=== PATIENT | female | born 1955 ===

== ENCOUNTER 2020-12-02 08:25 | Outpatient (REF) | payer OTHER, SELFPAY | END 2020-12-02 08:26 | disposition home or self-care (01) | LOC: HO.LAB 08:25 | PROVIDERS: Visit Provider Internal Medicine | DX: Z20.822 Contact with and (suspected) exposure to COVID-19 (principal) | CPT/HCPCS: 36415; C9803; U0003; U0005 ==

== ENCOUNTER 2021-02-10 09:37 | Outpatient (REF) | payer OTHER, SELFPAY ==
[2021-02-10 11:04] LABS: Hematocrit 41.3 % (37-47); Hemoglobin 13.6 g/dl (12.0-16.0); Mean Corpuscular HGB Conc 32.9 g/dl (31.0-35.0); Platelet Count 264 X10*3/uL (160-400); Red Blood Count 4.54 X10*6/uL (4.20-5.50); Red Cell Distribution Width 13.1 % (11.0-16.0); White Blood Count 8.2 X10*3/uL (4.8-10.8)
[2021-02-10 11:05] LABS: Alanine Aminotransferase 9 U/L (0-31); Albumin Level 4.1 g/dL (3.5-5.0); Alkaline Phosphatase 69 U/L (39-117); Anion Gap 12 (12-20); Aspartate Amino Transferase 15 U/L (5-31); Bilirubin Total 0.6 mg/dL (0.0-1.0); Blood Urea Nitrogen 14 mg/dL (9-16); Calcium 9.9 mg/dL (8.4-10.2); Carbon Dioxide 30 mmol/L (22-29); Chloride 103 mmol/L (96-108); Cholesterol 227 mg/dL; Estimated Glomerular Filt Rate > 60; Glucose Fasting 117 mg/dL (60-99); HDL Cholesterol 50 mg/dL; LDL Cholesterol Calculated 160 mg/dl; Potassium 4.2 mmol/L (3.3-5.1); Sodium 141 mmol/L (135-145); Total Protein 7.5 g/dL (6.5-8.0); Triglycerides 87 mg/dL
[2021-02-10 11:17] LABS: Creatinine Urine 160.14 mg/dL; Microalbum/Creatinine Ratio Ur 113.6 ug/mg cr
[2021-02-10 11:26] LABS: TSH reflex Free T4 1.93 uIU/mL (0.32-4.0)
== END 2021-02-10 09:38 | disposition home or self-care (01) ==
LOC: HO.LAB 09:37
PROVIDERS: Visit Provider Physician Assistant
DX: E11.9 Type 2 diabetes mellitus without complications (principal); I10 Essential (primary) hypertension
CPT/HCPCS: 36415; 80053; 80061; 82043; 84443; 85027

== ENCOUNTER 2021-04-14 08:01 | Outpatient (REF) | payer MEDICARE, MEDICAID, SELFPAY ==
--- NOTE | ~2021-04-14 | US_ITS ---
EXAMINATION: US RETROPERITONEAL LIMITED (RENAL ONLY) CLINICAL INFORMATION: Hypertension. Rule out renal artery stenosis. COMPARISON: Abdominal ultrasound October 2017 TECHNIQUE: Doppler, color and an-scale evaluation of the kidneys and renal arteries including waveform spectral analysis. FINDINGS: RIGHT KIDNEY: 11.8 x 3.7 x 6.1 cm (SAG x AP x TRV). The kidney is normal in size, contour, and echogenicity. Renal cortical thickness is normal. There is a small 5 mm cyst exophytic to the lower pole. There are 2 echogenic densities measuring 5 mm in the mid and lower pole suggestive of small stones. No hydronephrosis. LEFT KIDNEY: There is a 4 mm echogenic density in the lower pole suggestive of a stone. The kidney is normal in size, contour, and echogenicity. Renal cortical thickness is normal. No focal parenchymal lesions. No hydronephrosis. The mid abdominal aorta is normal in caliber and has normal peak systolic velocity measuring 70 cm/s. The right renal artery is patent. Right renal artery peak systolic velocities measure 85 cm/s proximally, 111 cm/s in the midportion and 97 cm/s distally. Right renal artery to aorta ratio measures 1.6. Resistive indices at the segmental renal arteries in the right kidney are normal measuring 0.6-0.7. The right renal vein is patent. The left renal artery is patent. Left renal artery peak systolic velocities measure 115 cm/s proximally, 81 cm/s in the midportion and 63 cm/s distally. Left renal artery to aorta ratio is 1.6. Resistive indices of the segmental renal arteries and left kidney measure between 0.6 and 0.7. The left renal vein is patent. US/US renal doppler IMPRESSION: No evidence of renal artery stenosis. Small right renal cyst and small bilateral renal stones.
--- NOTE | ~2021-04-14 | US_ITS ---
EXAMINATION: US RETROPERITONEAL LIMITED (RENAL ONLY) CLINICAL INFORMATION: Hypertension. Rule out renal artery stenosis. COMPARISON: Abdominal ultrasound October 2017 TECHNIQUE: Doppler, color and an-scale evaluation of the kidneys and renal arteries including waveform spectral analysis. FINDINGS: RIGHT KIDNEY: 11.8 x 3.7 x 6.1 cm (SAG x AP x TRV). The kidney is normal in size, contour, and echogenicity. Renal cortical thickness is normal. There is a small 5 mm cyst exophytic to the lower pole. There are 2 echogenic densities measuring 5 mm in the mid and lower pole suggestive of small stones. No hydronephrosis. LEFT KIDNEY: There is a 4 mm echogenic density in the lower pole suggestive of a stone. The kidney is normal in size, contour, and echogenicity. Renal cortical thickness is normal. No focal parenchymal lesions. No hydronephrosis. The mid abdominal aorta is normal in caliber and has normal peak systolic velocity measuring 70 cm/s. The right renal artery is patent. Right renal artery peak systolic velocities measure 85 cm/s proximally, 111 cm/s in the midportion and 97 cm/s distally. Right renal artery to aorta ratio measures 1.6. Resistive indices at the segmental renal arteries in the right kidney are normal measuring 0.6-0.7. The right renal vein is patent. The left renal artery is patent. Left renal artery peak systolic velocities measure 115 cm/s proximally, 81 cm/s in the midportion and 63 cm/s distally. Left renal artery to aorta ratio is 1.6. Resistive indices of the segmental renal arteries and left kidney measure between 0.6 and 0.7. The left renal vein is patent. US/US renal BI IMPRESSION: No evidence of renal artery stenosis. Small right renal cyst and small bilateral renal stones.
== END 2021-04-14 08:02 | disposition home or self-care (01) ==
LOC: HO.HMGCX 08:01
PROVIDERS: PCP Physician Assistant; Visit Provider Physician Assistant
DX: I10 Essential (primary) hypertension (principal)
CPT/HCPCS: 76775; 93975

== ENCOUNTER 2021-05-25 10:13 | Outpatient (REF) | payer MEDICARE, MEDICAID, SELFPAY ==
--- NOTE | ~2021-05-25 | US_ITS ---
EXAMINATION: US ABDOMEN LIMITED CLINICAL INFORMATION: Intra-abdominal and pelvic swelling, mass and lump. COMPARISON: Bilateral renal ultrasound dated 04/14/2021. TECHNIQUE: Real-time imaging of the midline supraumbilical area of concern. FINDINGS: Possible mild diastasis of the rectus abdominis muscles without significant herniation. No abnormal soft tissue mass or fluid collection. US/US abdomen limited IMPRESSION: Possible mild diastasis of the rectus abdominis muscles without significant herniation.
== END 2021-05-25 10:14 | disposition home or self-care (01) ==
LOC: HO.US 10:13
PROVIDERS: Visit Provider Internal Medicine
DX: R19.00 Intra-abdominal and pelvic swelling, mass and lump, unspecified site (principal)
CPT/HCPCS: 76705

== ENCOUNTER → 2021-06-07 14:03 | Outpatient (BNVA) | payer MEDICARE, MEDICAID, SELFPAY | PROVIDERS: PCP Internal Medicine | DX: N20.0 Calculus of kidney (principal); Z87.891 Personal history of nicotine dependence | CPT/HCPCS: 99202 ==

== ENCOUNTER 2021-07-08 08:52 | Outpatient (REF) | payer MEDICARE, MEDICAID, SELFPAY ==
[2021-07-08 15:46] LABS: CT PCR NOT DETECTED (Not Detect.); NG PCR NOT DETECTED (Not Detect.)
[2021-07-09 08:18] LABS: HBc Num1 0.08 S/CO (0.00-0.79); HIV AB/AG Nonreactive (Nonreactive); HIV Num 1 0.06 S/CO (0.00-0.99); Hepatitis B Core Antibody Nonreactive (Nonreactive); Syphilis Screen Nonreactive (Nonreactive); ~HepC Num1 0.07 S/CO (0.00-0.79); ~Hepatitis C Antibody Nonreactive (Nonreactive)
[2021-07-09 09:29] LABS: BV Int Neg Control Negative (Negative); BV Int Pos Control Positive (Positive)
== END 2021-07-08 08:53 | disposition home or self-care (01) ==
LOC: HO.LAB 08:52
PROVIDERS: PCP Internal Medicine; Visit Provider Advanced Practice Midwife
DX: Z01.419 Encounter for gynecological examination (general) (routine) without abnormal findings (principal); Z11.3 Encounter for screening for infections with a predominantly sexual mode of transmission; Z20.2 Contact with and (suspected) exposure to infections with a predominantly sexual mode of transmission
CPT/HCPCS: 36415; 86704; 86780; 86803; 87389; 87480; 87491; 87510; 87591; 87660

== ENCOUNTER 2021-08-02 15:33 | Outpatient (REF) | payer MEDICARE, MEDICAID, SELFPAY ==
--- NOTE | ~2021-08-02 | US_ITS ---
EXAMINATION: US RETROPERITONEAL LIMITED (RENAL ONLY) CLINICAL INFORMATION: Calculus of kidney. COMPARISON: Ultrasound abdomen limited 05/25/2021. Renal ultrasound 04/14/2021. TECHNIQUE: Real-time imaging of the kidneys. FINDINGS: RIGHT KIDNEY: 11.8 x 4.4 x 6.2 cm (SAG x AP x TRV). The kidney is normal in size, contour, and echogenicity. Renal cortical thickness is normal. There are multiple renal stones. The largest measure 1 x 0.3 x 0.8 cm in the midpole and 0.6 x 0.4 x 0.6 cm in the lower pole. There is a 0.8 x 0.6 x 0.7 cm cyst in the lower pole. No hydronephrosis. LEFT KIDNEY: 10.9 x 4.8 x 5.4 cm (SAG x AP x TRV). The kidney is normal in size, contour, and echogenicity. Renal cortical thickness is normal. There are multiple small echogenic densities in the left kidney probably representing vascular reflectors as opposed to stones. There is a 1.6 x 1 x 1.5 cm peripelvic cyst in the upper pole. No hydronephrosis. US/US renal BI IMPRESSION: Right renal stones. Multiple small linear echogenic densities in the left kidney probably representing vascular reflectors as opposed to stones. Small bilateral renal cysts.
== END 2021-08-02 15:34 | disposition home or self-care (01) ==
LOC: HO.US 15:33
PROVIDERS: PCP Internal Medicine; Visit Provider Urology
DX: N20.0 Calculus of kidney (principal)
CPT/HCPCS: 76775

== ENCOUNTER 2021-08-09 15:02 | Outpatient (RCR) | payer MEDICAID, SELFPAY | END 2021-12-06 11:10 | disposition home or self-care (01) | LOC: HO.PT 15:02 | PROVIDERS: PCP Internal Medicine; Visit Provider Internal Medicine | DX: M62.08 Separation of muscle (nontraumatic), other site (principal) ==

== ENCOUNTER 2021-08-30 14:02 | Outpatient (REF) | payer MEDICARE, MEDICAID, SELFPAY ==
--- NOTE | ~2021-08-30 | MM_ITS ---
EXAMINATION: MM SCREENING DIGITAL BREAST TOMOSYNTHESIS, BILATERAL CLINICAL INFORMATION: Screening. Asymptomatic. The lifetime risk of breast cancer based on the Tyrer-Cuzick Model is 8%. COMPARISON: Mammography: 10/12/2016, 11/23/2007 TECHNIQUE: Digital breast tomosynthesis is performed in both the craniocaudal and mediolateral oblique views along with computer-aided detection (CAD). Synthesized 2D images are generated from the tomosynthesis. FINDINGS: The breasts are almost entirely fatty (ACR BI-RADS breast composition Category a). There are no significant masses, abnormal calcifications, or other abnormalities. There is a stable circumscribed nodule posterior 9:00 right breast similar to prior studies. The axilla and skin contours are unremarkable. There is asymmetry of the breast size, left larger, similar to prior studies. No significant changes. MM/MM tomosynthesis screening BI IMPRESSION: No mammographic evidence of malignancy. ASSESSMENT: BI-RADS 2: Benign RECOMMENDATION: Routine annual mammography screening. This patient's information was entered into a reminder system with a target due date for their next mammogram.
== END 2021-08-30 14:03 | disposition home or self-care (01) ==
LOC: HO.MAMMO 14:02
PROVIDERS: Visit Provider Internal Medicine
DX: Z12.31 Encounter for screening mammogram for malignant neoplasm of breast (principal)
CPT/HCPCS: 77063; 77067

== ENCOUNTER 2022-01-05 07:00 | Outpatient (RCR) | payer MEDICARE, MEDICAID, SELFPAY ==
--- NOTE | 2021-08-31 15:26 | MHC.PT.EP ---
[facility] [place] Office [place] Office [place] Office [address] Anjana Adrian [address] [phone] F: [phone] F: [phone] F: [phone] F: [phone] Physical Therapy Plan of Care Date of Evaluation: Date of Surgery: Diagnosis: separation of muscle diastasis recti Assessment: The patient arrived reporting abdominal pain with change in position. I measured a very large abdominal bulge that occurs with contraction of rectus abdominis. The ulstrasound reports mild diastasis recti The patient currently has poor body mechanics, posture, and poor core strength. We will work on techniques to reduce abdominal pressure, and to improve breathing, as well as improve core strength. She also reports urinary incontinence in her history with change in position. I did not assess her PFM strength today due to pt was 25 min late to appointment. I will assess her PFM in subsequent visits. She is a good candidate for skilled pelvic floor therapy. Frequency and Duration: The patient will be seen 1x/week x 8 weeks. Short Term Goals: Pt to be able to demonstrate correct bed mobility technique via log rolling to avoid pressure on the abdomen Pt to be able to demonstrate proper diaphragmatic breathing to relieve pressure on the abdomen Pt to demonstrate initial HEP to improve compliance and carryover. Gold Reclaimer Goals: Pt to be able to show NMR control of her pelvic floor and abdominal muscles to work on HEP independently pt to be able to reduce abdominal bulge by 25% to show progression towards goals. Pt to be able to demonstrate good breathing techniques, body mechanics Treatment Plan: Modalities to reduce pain, spasms and effusion. Manual therapy to restore motion and function. Therapeutic exercise to improve strength and flexibility. Neuromuscular re-education for posture and balance. Therapeutic activities to return to functional activities of daily living. Electronically signed by: Please sign and return to therapist. Thank you for your referral.
--- NOTE | 2022-01-05 08:06 | MHC.PT.DC ---
[facility] [place] Office [place] Office [place] Office [address] Anjana Adrian [address] [phone] F: [phone] F: [phone] F: [phone] F: [phone] Physical Therapy Discharge Report Diagnosis: separation of muscle diastasis recti Date of Surgery: Date of Evaluation: 08/31/21 Date of Discharge: 01/05/22 Treatments to Date: 14 Cancellations to Date: No Shows to Date: Discharge Status: Achieved Goals Independent with HEP Discharge Summary: Assessment of diastasis recti done today. Total length 16 cm. 10 above umbilicus, and 3 below. Across is 10 cm. Pt educated to continue her HEP. She is fully independent with her HEP. She is discharged today with her HEP. Electronically signed by: Fanta Forbes PT DPT Please sign and return to therapist. Thank you for your referral.
== END 2022-01-05 08:07 | disposition home or self-care (01) ==
LOC: HO.PT 07:00
PROVIDERS: Visit Provider Internal Medicine
DX: M62.08 Separation of muscle (nontraumatic), other site (principal)
CPT/HCPCS: 97110; 97112; 97140; 97162; 97530

== ENCOUNTER 2022-07-13 14:50 | Outpatient (REF) | payer MEDICAID, SELFPAY ==
[2022-07-19 20:42] LABS: HPV mRNA E6/E7 rflx Not Detected (Not Detected)
== END 2022-07-13 14:51 | disposition home or self-care (01) ==
LOC: HO.LNP 14:50
PROVIDERS: Visit Provider Advanced Practice Midwife
DX: Z01.419 Encounter for gynecological examination (general) (routine) without abnormal findings (principal); Z11.51 Encounter for screening for human papillomavirus (HPV)
CPT/HCPCS: 87624; 88142

== ENCOUNTER 2022-08-31 13:49 | Outpatient (REF) | payer MEDICAID, SELFPAY ==
--- NOTE | ~2022-08-31 | MM_ITS ---
EXAMINATION: MM SCREENING DIGITAL BREAST TOMOSYNTHESIS, BILATERAL CLINICAL INFORMATION: Screening. Asymptomatic. The lifetime risk of breast cancer based on the Tyrer-Cuzick Model is 6%. COMPARISON: Mammography: 08/30/2021, 10/12/2016 TECHNIQUE: Digital breast tomosynthesis is performed in both the craniocaudal and mediolateral oblique views along with computer-aided detection (CAD). Synthesized 2D images are generated from the tomosynthesis. Additional right MLO view is provided. FINDINGS: The breasts are almost entirely fatty (ACR BI-RADS breast composition Category a). Stable asymmetry of the breasts, left slightly larger. Background stromal markings are unremarkable. There is incidental stable circumscribed nodule posterior upper outer right breast likely intramammary node. There are scattered bilateral round, rim, predominantly dermal calcifications again seen. The axilla are unremarkable. Skin contours are smooth. MM/MM tomosynthesis screening BI IMPRESSION: No mammographic evidence of malignancy. ASSESSMENT: BI-RADS 2: Benign RECOMMENDATION: Routine annual mammography screening. This patient's information was entered into a reminder system with a target due date for their next mammogram.
== END 2022-08-31 13:50 | disposition home or self-care (01) ==
LOC: HO.MAMMO 13:49
PROVIDERS: PCP Internal Medicine; Visit Provider Internal Medicine
DX: Z12.31 Encounter for screening mammogram for malignant neoplasm of breast (principal)
CPT/HCPCS: 77063; 77067

== ENCOUNTER 2024-01-11 09:50 | Emergency (ER) | payer MEDICARE, MEDICAID, SELFPAY ==
[2024-01-11] VITALS (11 sets, daily range): BP systolic 139–199; BP diastolic 81–112; PULSE 88–102; RESP 16–22; TEMP 36.9–38.6; O2SAT 94–97; BMI 44.3
--- NOTE | ~2024-01-11 | CT_ITS ---
EXAMINATION: CT HEAD WITHOUT CONTRAST CLINICAL INFORMATION: Confusion. COMPARISON: None available. TECHNIQUE: Contiguous axial imaging was performed from the skull base to vertex without intravenous administration of contrast. This CT examination was performed using dose optimization techniques as appropriate, variously including the following: *Automated exposure control *Adjustment of mA and/or kV according to patient size (this includes techniques or standardized protocols for targeted exams where dose is matched to indication/reason for exam; i.e. extremities or head) *Use of iterative reconstruction technique DLP: 843 mGy-cm FINDINGS: No evidence of intracranial hemorrhage, extra-axial surface collection, focal mass effect or midline shift. Mild patchy hypoattenuation within the supratentorial white matter is compatible with sequela of chronic microangiopathy. The an-white matter differentiation is maintained. No evidence of an acute major vascular territory infarction. Qpyh-us-ipldswou parenchymal volume loss with commensurate prominence of ventricles and sulci. No hydrocephalus. The cerebellar tonsils are in normal position. The orbits, globes and temporomandibular joints are unremarkable. The mastoid air cells are well aerated. There is mucosal thickening of inferior frontal, bilateral ethmoid, sphenoid and maxillary sinuses without air-fluid levels. There are some relatively dense retention cysts or polyps of the maxillary sinuses. CT/CT head/brain wo IV con IMPRESSION: * No intracranial mass, hemorrhage or other acute intracranial pathology. * There are findings suggestive of mild microangiopathy affecting the supratentorial white matter. * Incidentally noted is mucosal thickening of paranasal sinuses without air-fluid levels. Abnormalities include presence of several hyperdense polyps or retention cysts of the maxillary sinuses.
--- NOTE | ~2024-01-11 | XR_ITS ---
EXAMINATION: XR CHEST CLINICAL INFORMATION: Cough COMPARISON: Chest 10/19/2017 TECHNIQUE: 2 views of the chest were obtained. FINDINGS: No focal consolidation, interstitial pulmonary edema or pneumothorax. No pleural effusion. The heart is borderline in size. Mild to moderate degenerative changes involve the thoracic spine. XR/XR chest 2V IMPRESSION: No acute abnormality.
--- NOTE | 2024-01-11 10:04 | ED.GENADULT ---
HPI - General Adult General Chief complaint: Upper Respiratory Symptoms Stated complaint: COUGH X3 DAYS,FREQ URINATION PER EMS Time Seen by Provider: 01/11/24 10:03 Source: patient, family (patient's son) and EMS Mode of arrival: EMS Limitations: other (patient is confused) History of Present Illness HPI narrative: Patient is a 68 year old assigned female at with a history of DM and HTN presenting to the emergency department today with a cough, increased urination, and confusion. Patient states that over the last 3 days she has felt generally unwell with a cough and a fever. Patient's son states that the patient has been acting more confused lately. Patient denies any dizziness, lightheadedness, abdominal pain, nausea, vomiting, chills, blurry vision, double vision, loss of vision, chest pain, difficulty breathing, shortness of breath, back pain, night sweats, pain with urination, increased urinary frequency, increased urinary urgency, blood in her urine or stool, syncope or a near syncopal episode, recent trauma or falls, bowel incontinence, bladder incontinence, bowel retention, bladder retention, or any other complaints at this time. Onset (ago): day(s) (3) Relieving factors: none Exacerbating factors: none Associated symptoms: confusion, cough and fever/chills Treatments prior to arrival: none Related Data Home Medications ?Medication ?Instructions ?Recorded ?Confirmed albuterol sulfate 90 mcg/actuation 2 puff inhalation Q6H PRN Wheezing 02/10/21 01/11/24 aerosol inhaler cholecalciferol (vitamin D3) 25 25 mcg PO DAILY 01/11/24 01/11/24 mcg (1,000 unit) tablet vitamin A 3,000 mcg (10,000 unit) 3,000 mcg PO DAILY 01/11/24 01/11/24 capsule Previous Rx's ?Medication ?Instructions ?Recorded aspirin 81 mg tablet,delayed 81 mg PO DAILY 90 days #90 tabs 02/10/21 release (Adult Aspirin Regimen) compr.stocking,knee,long,large #2 ea 03/11/21 Allergies Allergy/AdvReac Type Severity Reaction Status Date / Time amlodipine Allergy Intermediate drowsiness, Verified 01/11/24 10:08 swelling of feet and ankles lisinopril Allergy Intermediate cough Verified 01/11/24 10:08 Lisinopril-Hydrochlorothiazide AdvReac Intermediate Leg Uncoded 01/11/24 10:08 swelling Metoprolol Tartrate AdvReac Intermediate Leg Uncoded 01/11/24 10:08 swelling Review of Systems Constitutional: Constitutional: Reports no additional constitutional complaints, Denies chills, Reports fever(s) and Denies night sweats Eyes: Eyes: Reports no additional eye complaints, Denies blurry vision, Denies change in vision, Denies diplopia, Denies eye discharge, Denies loss of vision and Denies eye pain ENT: Denies dizziness Cardiovascular: Cardiovascular: Reports no additional cardiovascular complaints, Denies chest pain, Denies lightheadedness, Denies Loss of Consciousness and Denies dyspnea Respiratory: Respiratory: Reports no additional respiratory complaints, Reports cough and Denies dyspnea Gastrointestinal: Gastrointestinal: Reports no additional gastrointestinal complaints, Denies abdominal pain, Denies melena, Denies hematochezia, Denies change in bowel habits and Denies change in stool character Genitourinary: Genitourinary: Denies hematuria, Denies urinary frequency, Denies dysuria, Denies urinary incontinence, Denies urinary hesitancy and Denies urinary urgency Musculoskeletal: Musculoskeletal: Reports no additional musculoskeletal complaints, Denies numbness and Denies tingling Neurologic: Reports confusion, Denies dizziness, Denies loss of vision, Denies numbness and Denies tingling Psychiatric: Psychiatric: Reports no additional psychiatric complaints and Reports confusion Endocrine: Endocrine: Reports no additional endocrine complaints Hematologic/Lymphatic: Hematologic/Lymphatic: Reports no additional hematologic/lymphatic complaints Allergic/Immunologic: Allergic/Immunologic: Reports no additional allergic/immunologic complaints [facility] Past Medical History Attestation statement: The following information was validated with the patient. (all information validated with the patient's son) Source: old records reviewed, obtained from family (patient's son provided additional history and confirmed the history provided by the patient) and nursing notes reviewed Medical History Abnormal Pap smear of cervix Diabetes mellitus Hypertension Renal calculi Diastasis recti Dyslipidemia associated with type 2 diabetes mellitus Abdominal mass Microalbuminuria Renal calculi Morbid obesity Surgical History Hx of prior ablation treatment Family History Family History Father Seizures Mother Seizures Congenital heart disease in adult Hypotension Maternal Grandfather Leukemia Social History Social History Housing: Apartment Alcohol intake: current Alcohol intake frequency: holidays/special occasions only Patient Tobacco Use Status: Former Tobacco user Quit Date: 20 years ago Smoked in Last 30 Days: No e-Cigarette/Vaping Use: Never Used Second Hand Smoke Exposure: No Use of substances other than those prescribed or required for medical reasons: No Advance Directives: No Advance Directives Information Provided: No service: No Current occupational status: employed Current occupational exposures/hazards: No Physical Exam ED Vital Signs: Vital Signs - 24 hr 01/11/24 09:59 01/11/24 10:20 01/11/24 10:49 Temperature 100.5 F H 100 F 101.4 F H Pulse Rate 100 97 96 Respiratory Rate 19 20 Blood Pressure 181/112 H 190/106 H 178/96 H Pulse Oximetry 97 94 94 Oxygen Delivery Method Room Air Room Air Room Air 01/11/24 11:50 01/11/24 12:08 01/11/24 12:52 Temperature 101.1 F H Pulse Rate 94 Respiratory Rate 22 H Blood Pressure 172/99 H Pulse Oximetry 94 94 Oxygen Delivery Method Room Air Room Air 01/11/24 14:27 01/11/24 14:40 Temperature 99.5 F Pulse Rate 88 Respiratory Rate 18 Blood Pressure 139/81 Pulse Oximetry 97 Oxygen Delivery Method Room Air BMI result Body Mass Index 44.3 Const General: confusion Nutritional Appearance: well nourished Orientation/consciousness: oriented to person, oriented to place, No oriented to time and confusion Limitations: no limitations HENMT Head: Yes normal to inspection and Yes atraumatic Ears: hearing grossly normal bilaterally and external ears normal General nose exam: Normal external nose present, no nasal discharge noted and no epistaxis Face and sinus: Yes normal facial exam, No abrasion and No laceration Mouth: Normal oral and palatal mucosa present, no drooling and no muffled voice Eyes General: appearance normal, both eyes and all related structures Periorbital: periorbital findings normal Eyelids: Yes eyelids normal Conjunctivae: conjunctivae normal Pupils: Equal, round and reactive pupils present EOM: EOMs intact bilaterally Neck Neck: Yes normal visual inspection, Yes full ROM and Yes no lymphadenopathy Chest Chest palpation & inspection: normal inspection of the chest Resp Effort & Inspection: normal respiratory effort, able to speak in complete sentences and Actively coughing Quality: dry Cardio Rate: tachycardic Rhythm: regular rhythm GI Inspection: Yes normal to inspection Neuro General: oriented to person, oriented to place, No oriented to time and confusion Cranial nerves: Yes Equal, round and reactive pupils present Cognition (Neuro): normal cognition Motor exam (neuro): 5/5 motor strength present throughout Sensory Exam: Normal double simultaneous stimulation for sensation Coordination: rokluw-[id number] test normal Extrem General: Yes normal to inspection, Yes full ROM and Yes capillary refill normal Psych Appearance: grossly normal Mental Status: mental status grossly normal Affect: normal affect Attitude: cooperative Thought process: Normal thought process present Thought content: Normal thought content present Insight: Good insight present (Psych) Medications Administered Discontinued Medications Generic Name Dose Route Start Last Admin Trade Name Freq PRN Reason Stop Dose Admin Acetaminophen 975 mg 01/11/24 11:11 01/11/24 11:40 Acetaminophen 325 Mg Tablet PO 01/11/24 11:12 975 mg ONCE ONE Administration Ceftriaxone Sodium 1 gm/ 50 mls @ 100 mls/hr 01/11/24 10:09 01/11/24 13:04 Sodium Chloride IV 01/11/24 10:38 Infused ONCE ONE Infusion Sodium Chloride 1,000 mls @ 999 mls/hr 01/11/24 11:45 01/11/24 13:04 Ns IV 01/11/24 12:45 Infused .Q1H1M BAUTISTA Infusion Magnesium Sulfate/Dextrose 1 gm in 100 mls @ 100 mls/hr 01/11/24 11:38 01/11/24 13:04 Magnesium Sulfate/D5w IV 01/11/24 12:37 Infused ONCE ONE Infusion Ibuprofen 400 mg 01/11/24 12:58 01/11/24 13:08 Ibuprofen 400 Mg Tablet PO 01/11/24 12:59 400 mg ONCE ONE Administration Medical Decision Making Medical Decision Making MDM Narrative: Patient is a 68 year old assigned female at with a history of DM and HTN presenting to the emergency department today with a cough, fever, weakness, and confusion. Patient's physical exam was as noted in the physical exam portion of this note. Patient's blood work showed an NA of 131, glucose of 365, initial lactic of 2.3 with a repeat of 1.4, magnesium of 1.4, and a beta-hydroxybutyrate of 0.45. Patient's urine showed no acute infection. Patient's chest x-ray showed no acute process. Patient's head CT showed no acute process. Patient's influenza test was positive. We attempted to walk the patient for an ambulatory pulse ox reading however, when we stood the patient, she became very weak and had to be assisted back into bed. Patient's clinical presentation is most consistent with an influenza infection and is not consistent with sepsis (@1425). I spoke to the hospitalist team who agreed to admission. I explained my physical exam findings as well as all test results to the patient and the patient's son. I answered all questions asked by the patient and the patient's son. Patient and the patient's son verbalized agreement and understanding with this treatment plan and admission. Differential Diagnosis Differential Diagnoses: The differential diagnosis associated with the presentation includes Febrile Encephalopathy Confusion Influenza COVID-19 RSV Admission/Observation Consideration of admission/observation: Escalation of care including admission/observation considered Patient admitted. Consult Healthcare Provider Management of the patient was discussed with: Hospitalist (agreed to admission as noted in the MDM Rationale portion of this note.) Lab Data [facility] Lab Attestation statement: I reviewed the patient's lab results. My interpretation of these results are in the MDM Rationale portion of this note. 01/11/24 10:38 01/11/24 10:38 Labs: Lab Results 01/11/24 01/11/24 01/11/24 Range/Units 10:38 10:40 12:03 WBC 6.4 (4.8-10.8) X10*3/uL RBC 4.88 (4.20-5.50) X10*6/uL Hgb 14.4 (12.0-16.0) g/dl Hct 42.8 (37.0-47.0) % MCV 87.7 (80.0-98.0) fL MCH 29.5 (27.0-33.0) pg MCHC 33.6 (31.0-35.0) g/dl RDW 12.3 (11.0-16.0) % Plt Count 181 (160-400) X10*3/uL MPV 10.0 (9.4-12.3) fL Immature Gran % (Auto) 0.6 H (0.0-0.4) % Neut % (Auto) 77.6 H (45-73) % Lymph % (Auto) 8.1 L (20-40) % [place] % (Auto) 11.5 H (2-11) % Eos % (Auto) 1.7 (0-4) % Baso % (Auto) 0.5 (0-2) % Lymph # (Auto) 0.5 L (1.2-4.9) X10*3/uL [place] # (Auto) 0.7 (0.1-1.2) X10*3/uL Eos # (Auto) 0.1 (0.0-0.4) X10*3/uL Baso # (Auto) 0.0 (0.0-0.2) X10*3/uL Abs Immat Gran (auto) 0.04 H (0.00-0.03) X10*3/uL Absolute Neuts (auto) 5.0 (2.0-8.3) x10*3/uL Absolute Nucleated RBC 0.000 (0.0-0.012) X10*3/uL Nucleated RBC % (auto) 0.0 (0.0-0.2) /100WBC VBG pH (7.32-7.43) VBG pCO2 mmHg VBG pO2 mmHg VBG HCO3 (22-26) mmol/L VBG O2 Saturation % VBG Base Excess mmol/L Sodium 131 L (135-145) mmol/L Potassium 3.7 (3.3-5.1) mmol/L Chloride 92 L (96-108) mmol/L Carbon Dioxide 30 H (22-29) mmol/L Anion Gap 13 (12-20) BUN 9 (9-16) mg/dL Creatinine 0.96 (0.5-1.4) mg/dL Estim Creat Clear Calc 79.2 Estimated GFR 58 Random Glucose 365 H* (60-115) mg/dL Lactic Acid 2.3 H* (0.5-2.0) mmol/L Lactic Acid F/U @ 2Hr (0.5-2.0) mmol/L Calcium 9.2 D (8.4-10.2) mg/dL Magnesium 1.4 L* (1.6-2.6) mg/dL Total Bilirubin 0.7 (0.0-1.0) mg/dL AST 20 (5-31) U/L ALT 12 (0-31) U/L Alkaline Phosphatase 70 (39-117) U/L Ammonia (13-55) umol/L Total Protein 7.3 (6.5-8.0) g/dL Albumin 3.7 (3.5-5.0) g/dL Beta-Hydroxybutyrate 0.45 H (0.02-0.27) mmol/L Urine Color Yellow Urine Appearance Clear Urine pH 6.0 (5.0-9.0) Ur Specific [place] >= 1.030 H (1.005-1.025) Urine Protein 100 (2+) H (Neg-Trace) mg/dL Urine Glucose (UA) >=1000 H (Negative) mg/dL Urine Ketones 15 (Negative) mg/dL Urine Blood Large (3+) H (Negative) Urine Nitrite Negative (Negative) Ur Leukocyte Esterase Negative (Negative) Urine RBC >20 H (0-2) /HPF Urine WBC 0-5 (0-5) /HPF Ur Squamous Epith Cells 3-5 (0-2) /HPF Urine Bacteria None Seen (None Seen) Hyaline Casts 0-2 (0-2) /LPF Influenza Type A (PCR) POSITIVE A (Negative) Influenza Type B (PCR) NEGATIVE (Negative) RSV RNA Qual (PCR) NEGATIVE (Negative) SARS-CoV-2 RNA (RT-PCR) NEGATIVE (Negative) 01/11/24 01/11/24 01/11/24 Range/Units 12:38 12:40 13:34 WBC (4.8-10.8) X10*3/uL RBC (4.20-5.50) X10*6/uL Hgb (12.0-16.0) g/dl Hct (37.0-47.0) % MCV (80.0-98.0) fL MCH (27.0-33.0) pg MCHC (31.0-35.0) g/dl RDW (11.0-16.0) % Plt Count (160-400) X10*3/uL MPV (9.4-12.3) fL Immature Gran % (Auto) (0.0-0.4) % Neut % (Auto) (45-73) % Lymph % (Auto) (20-40) % [place] % (Auto) (2-11) % Eos % (Auto) (0-4) % Baso % (Auto) (0-2) % Lymph # (Auto) (1.2-4.9) X10*3/uL [place] # (Auto) (0.1-1.2) X10*3/uL Eos # (Auto) (0.0-0.4) X10*3/uL Baso # (Auto) (0.0-0.2) X10*3/uL Abs Immat Gran (auto) (0.00-0.03) X10*3/uL Absolute Neuts (auto) (2.0-8.3) x10*3/uL Absolute Nucleated RBC (0.0-0.012) X10*3/uL Nucleated RBC % (auto) (0.0-0.2) /100WBC VBG pH 7.44 H (7.32-7.43) VBG pCO2 45 mmHg VBG pO2 66 mmHg VBG HCO3 31 H (22-26) mmol/L VBG O2 Saturation 94.0 % VBG Base Excess 6.0 mmol/L Sodium (135-145) mmol/L Potassium (3.3-5.1) mmol/L Chloride (96-108) mmol/L Carbon Dioxide (22-29) mmol/L Anion Gap (12-20) BUN (9-16) mg/dL Creatinine (0.5-1.4) mg/dL Estim Creat Clear Calc Estimated GFR Random Glucose (60-115) mg/dL Lactic Acid (0.5-2.0) mmol/L Lactic Acid F/U @ 2Hr 1.4 (0.5-2.0) mmol/L Calcium (8.4-10.2) mg/dL Magnesium (1.6-2.6) mg/dL Total Bilirubin (0.0-1.0) mg/dL AST (5-31) U/L ALT (0-31) U/L Alkaline Phosphatase (39-117) U/L Ammonia 33 (13-55) umol/L Total Protein (6.5-8.0) g/dL Albumin (3.5-5.0) g/dL Beta-Hydroxybutyrate (0.02-0.27) mmol/L Urine Color Urine Appearance Urine pH (5.0-9.0) Ur Specific [place] (1.005-1.025) Urine Protein (Neg-Trace) mg/dL Urine Glucose (UA) (Negative) mg/dL Urine Ketones (Negative) mg/dL Urine Blood (Negative) Urine Nitrite (Negative) Ur Leukocyte Esterase (Negative) Urine RBC (0-2) /HPF Urine WBC (0-5) /HPF Ur Squamous Epith Cells (0-2) /HPF Urine Bacteria (None Seen) Hyaline Casts (0-2) /LPF Influenza Type A (PCR) (Negative) Influenza Type B (PCR) (Negative) RSV RNA Qual (PCR) (Negative) SARS-CoV-2 RNA (RT-PCR) (Negative) Independent Interpretation I performed an independent interpretation of an: Plain X-Ray and CT Scan Interpretation: My interpretation is in agreement with the radiologist's impression of these imaging studies. EXAMINATION: CT HEAD WITHOUT CONTRAST CLINICAL INFORMATION: Confusion. COMPARISON: None available. TECHNIQUE: Contiguous axial imaging was performed from the skull base to vertex without intravenous administration of contrast. This CT examination was performed using dose optimization techniques as appropriate, variously including the following: *Automated exposure control *Adjustment of mA and/or kV according to patient size (this includes techniques or standardized protocols for targeted exams where dose is matched to indication/reason for exam; i.e. extremities or head) *Use of iterative reconstruction technique DLP: 843 mGy-cm FINDINGS: No evidence of intracranial hemorrhage, extra-axial surface collection, focal mass effect or midline shift. Mild patchy hypoattenuation within the supratentorial white matter is compatible with sequela of chronic microangiopathy. The an-white matter differentiation is maintained. No evidence of an acute major vascular territory infarction. Dexr-bu-maaonljf parenchymal volume loss with commensurate prominence of ventricles and sulci. No hydrocephalus. The cerebellar tonsils are in normal position. The orbits, globes and temporomandibular joints are unremarkable. The mastoid air cells are well aerated. There is mucosal thickening of inferior frontal, bilateral ethmoid, sphenoid and maxillary sinuses without air-fluid levels. There are some relatively dense retention cysts or polyps of the maxillary sinuses. CT/CT head/brain wo IV con IMPRESSION: * No intracranial mass, hemorrhage or other acute intracranial pathology. * There are findings suggestive of mild microangiopathy affecting the supratentorial white matter. * Incidentally noted is mucosal thickening of paranasal sinuses without air-fluid levels. Abnormalities include presence of several hyperdense polyps or retention cysts of the maxillary sinuses. Dictated By: Bobby Dc MD Signed By: Electronically signed by Bobby Dc MD 01/11/24 1323 EXAMINATION: XR CHEST CLINICAL INFORMATION: Cough COMPARISON: Chest 10/19/2017 TECHNIQUE: 2 views of the chest were obtained. FINDINGS: No focal consolidation, interstitial pulmonary edema or pneumothorax. No pleural effusion. The heart is borderline in size. Mild to moderate degenerative changes involve the thoracic spine. XR/XR chest 2V IMPRESSION: No acute abnormality Dictated By: Lola Vivar MD Signed By: Electronically signed by Lola Vivar MD 01/11/24 1127 Radiology Impression Discussion of test interpretation with radiology: I have reviewed the radiologist's reading. Independent Historian Clinical information obtained from an independent historian. History obtained from or confirmed by: EMS (EMS provided additional history and confirmed the history provided by the patient.) and Other (patient's son provided additional history and confirmed the history provided by the patient.) Chronic Conditions Patient?s care impacted by: Diabetes and Hypertension Critical Care Time Critical Care Time Critical Care Time: Yes Total Critical Care Time: 120 Attestation: I spent 120 minutes of Critical Care Time with this patient. This does not include time spent on separately reported billable procedures. Discharge Plan Discharge Clinical Impression: Acute confusion, Influenza, Weakness Patient Disposition: Admitted As Inpatient Print Language: [place]
[2024-01-11 10:47] LABS: Basophils Percent Auto 0.5 % (0-2); Eosinophils Absolute Auto 0.1 X10*3/uL (0.0-0.4); Eosinophils Percent Auto 1.7 % (0-4); Hematocrit 42.8 % (37.0-47.0); Hemoglobin 14.4 g/dl (12.0-16.0); Imm Gran Abs Auto 0.04 X10*3/uL (0.00-0.03); Imm Gran Pct Auto 0.6 % (0.0-0.4); Lymphocytes Absolute Auto 0.5 X10*3/uL (1.2-4.9); Lymphocytes Percent Auto 8.1 % (20-40); MANUAL DIFF FLAG NO; Mean Corpuscular HGB Conc 33.6 g/dl (31.0-35.0); Mean Corpuscular Hemoglobin 29.5 pg (27.0-33.0); Mean Corpuscular Volume 87.7 fL (80.0-98.0); Monocytes Absolute Auto 0.7 X10*3/uL (0.1-1.2); Monocytes Percent Auto 11.5 % (2-11); Neutrophils Percent Auto 77.6 % (45-73); Platelet Count 181 X10*3/uL (160-400); Red Blood Count 4.88 X10*6/uL (4.20-5.50); Red Cell Distribution Width 12.3 % (11.0-16.0); White Blood Count 6.4 X10*3/uL (4.8-10.8)
[2024-01-11] MEDS: cefTRIAXone sodium 1 GM in 0.9 % Sodium Chloride 50 ML IV (11:07)
[2024-01-11 11:12] LABS: Lactic Acid 2.3 mmol/L (0.5-2.0)
[2024-01-11 11:27] LABS: Alanine Aminotransferase 12 U/L (0-31); Albumin Level 3.7 g/dL (3.5-5.0); Alkaline Phosphatase 70 U/L (39-117); Anion Gap 13 (12-20); Aspartate Amino Transferase 20 U/L (5-31); Bilirubin Total 0.7 mg/dL (0.0-1.0); Blood Urea Nitrogen 9 mg/dL (9-16); Calcium 9.2 mg/dL (8.4-10.2); Carbon Dioxide 30 mmol/L (22-29); Chloride 92 mmol/L (96-108); Creatinine Clr Calc Pharmacy 79.2; Estimated Glomerular Filt Rate 58; Potassium 3.7 mmol/L (3.3-5.1); Sodium 131 mmol/L (135-145); Total Protein 7.3 g/dL (6.5-8.0)
[2024-01-11 11:29] LABS: Glucose Random 365 mg/dL (60-115); Magnesium 1.4 mg/dL (1.6-2.6)
[2024-01-11 11:37] LABS: Influenza A PCR POSITIVE (Negative); Influenza B PCR NEGATIVE (Negative); Resp Syncy Virus RNA Qual PCR NEGATIVE (Negative); SARS COV2 PCR INHOUSE NEGATIVE (Negative)
[2024-01-11] MEDS: Acetaminophen 325 MG TABLET 975 MG PO (11:40)
[2024-01-11] MEDS: 0.9 % Sodium Chloride 1,000 ML 999 ML IV (11:47)
[2024-01-11] MEDS: Magnesium Sulfate/D5W 1 GM/100 ML PIGGYBACK IV (11:47)
[2024-01-11 12:15] LABS: Appearance Urine Clear; Color Urine Yellow; Glucose Urine UA >=1000 mg/dL (Negative); Leukocyte Esterase Urine Negative (Negative); Nitrite Urine Negative (Negative); Specific Gravity - Urine >= 1.030 (1.005-1.025); UMIC TRIGGER UACC YES; Urine Blood Large (3+) (Negative); Urine Ketones 15 mg/dL (Negative); Urine Protein 100 (2+) mg/dL (Neg-Trace)
[2024-01-11 12:18] LABS: Bacteria Urine None Seen (None Seen); Hyaline Casts Urine 0-2 /LPF (0-2); RBC Urine >20 /HPF (0-2); WBC Urine 0-5 /HPF (0-5)
[2024-01-11 12:44] LABS: Reflex Lactate? Lactic Acid Added
[2024-01-11 12:45] LABS: Venous Blood Gas Refer to POC result
[2024-01-11 12:48] LABS: VBG HCO3 31 mmol/L (22-26); VBG pCO2 45 mmHg; VBG pH 7.44 (7.32-7.43); VBG pO2 66 mmHg
[2024-01-11 12:50] LABS: Ammonia 33 umol/L (13-55)
[2024-01-11] MEDS: Ibuprofen 400 MG TABLET PO (13:08)
[2024-01-11 13:13] LABS: Beta-Hydroxybutyrate 0.45 mmol/L (0.02-0.27)
[2024-01-11 13:56] LABS: ~Lactic Acid-LAB USE ONLY 1.4 mmol/L (0.5-2.0)
--- NOTE | 2024-01-11 14:41 | PC.NURSE ---
sr on monitor, skin wpd, feel better , more alert, no pain, aware of care plan
--- NOTE | 2024-01-11 15:15 | PHA.MEDREC ---
Pharmacy Consult ? Medication Reconciliation Pharmacy has completed the medication reconciliation. Patient reported only taking OTC medicaitons. Patient no longer taking prescription medications. Yeimy Heaton, PharmD
--- NOTE | 2024-01-11 15:35 | PC.NURSE ---
assumed care of patient at 1500, report received from Khadar ALEXIS.
--- NOTE | 2024-01-11 18:51 | MHC.EDTECH ---
PATIENT WAS AMBULATED .PATIENT HAD STEADY GATE.PATIENTS O2 PRIOR TO AMBULATION WAS 96 AND HEART RATE .DURING AMBULATION PATIENTS O2 DROPPED TO 93 AND HEART RATE WAS 105.NO COMPLAINTS
--- NOTE | 2024-01-11 20:42 | PC.NURSE ---
pt instructed to rest, follow up with pcp ZOILA regarding high blood pressure. pt states she has been on blood pressure medications for years and years with no relief in pressures. currently she is prescribed lisinopril and amlodipine but does not like the way it makes her feel, frequent cough from lisinopril. Hydrochlorothiazide sent to pharmacy along with cough medicine and Tamiflu. pt verbalizes understanding of d/c instructions, does not want to stay any longer for treatment of blood pressure. in no apparent distress at time of d/c. CRISTINO Ferreira and MD Weaver aware.
== END 2024-01-12 02:59 | disposition home or self-care (01) ==
PROVIDERS: Physician Assistant Medical; Emergency Provider Emergency Medicine
DX: R05.9 Cough, unspecified (principal); R35.0 Frequency of micturition; R50.9 Fever, unspecified; R41.0 Disorientation, unspecified; Z79.899 Other long term (current) drug therapy; Z11.52 Encounter for screening for COVID-19; Z20.822 Contact with and (suspected) exposure to COVID-19
CPT/HCPCS: 0241U; 36415; 70450; 71046; 80053; 81001; 82010; 82140; 82803; 83605; 83735; 85025; 87040; 96365; 96366; 96375; 99285; J0696; J3475

== ENCOUNTER 2024-05-26 03:14 | Emergency (ER) | payer SELFPAY ==
[2024-05-26] VITALS (8 sets, daily range): BP systolic 178–208; BP diastolic 95–129; PULSE 67–91; RESP 14–18; TEMP 36.4–36.8; O2SAT 94–98; BMI 43.7
--- NOTE | ~2024-05-26 | US_ITS ---
EXAMINATION: US VENOUS ULTRASOUND WITH DOPPLER LOWER EXTREMITY, BILATERAL CLINICAL INFORMATION: Swelling, pain COMPARISON: None available. TECHNIQUE: Ultrasound of the deep veins is performed from the hip to the calf with compression sonography and color and pulse Doppler assessment. Spectral analysis with color-flow imaging is performed. FINDINGS: RIGHT: There is normal venous compression and respiratory variation and augmented flow. The visualized common femoral vein, superficial femoral vein, profunda femoral vein, popliteal vein, and the trifurcation region shows no evidence of deep venous thrombosis. There is no significant popliteal fossa cyst. LEFT: There is normal venous compression and respiratory variation and augmented flow. The visualized common femoral vein, superficial femoral vein, profunda femoral vein, popliteal vein, and the trifurcation region shows no evidence of deep venous thrombosis. There is no significant popliteal fossa cyst. If the patient's symptoms persist, followup ultrasound in 5 days 7 days might be of value to exclude proximal propagation from a non-visualized calf vein. US/US venous duplex LE BI IMPRESSION: No DVT demonstrated in the both right and left lower extremities.
--- NOTE | 2024-05-26 03:42 | ECG_ITS ---
Test Reason : HTN Blood Pressure : / mmHG Vent. Rate : 082 BPM Atrial Rate : 082 BPM P-R Int : 220 ms QRS Dur : 160 ms QT Int : 446 ms P-R-T Axes : 021 -41 012 degrees QTc Int : 521 ms Sinus rhythm with 1st degree A-V block Left axis deviation Right bundle branch block Minimal voltage criteria for LVH, may be normal variant ( R in aVL ) Septal infarct , age undetermined Abnormal ECG No previous ECGs available Referred By: Generic ED Physician Electronically Signed By:FRANCI OSEI
[2024-05-26 03:58] LABS: Glucose, Whole Blood 174 mg/dL (60-115)
--- NOTE | 2024-05-26 06:29 | PC.NURSE ---
Provider notified and aware of pts B/P. No new orders at this time. Plan of care ongoing.
--- NOTE | 2024-05-26 07:30 | ECG_ITS ---
Test Reason : HTN Blood Pressure : / mmHG Vent. Rate : 078 BPM Atrial Rate : 078 BPM P-R Int : 238 ms QRS Dur : 166 ms QT Int : 444 ms P-R-T Axes : 036 -39 078 degrees QTc Int : 506 ms Sinus rhythm with 1st degree A-V block Left axis deviation Right bundle branch block Left ventricular hypertrophy with repolarization abnormality ( R in aVL ) Abnormal ECG When compared with ECG of 26-MAY-2024 03:46, Criteria for Septal infarct are no longer Present Referred By: Alyson Weaver Electronically Signed By:FRANCI OSEI
--- NOTE | 2024-05-26 07:30 | ED_ITS ---
HPI - General Adult General Chief complaint: General Medical Stated complaint: both legs swollen Time Seen by Provider: 05/26/24 07:05 Source: patient and old records reviewed Mode of arrival: ambulatory Limitations: no limitations History of Present Illness ED Provider: JACKELYN JONES narrative: 69 yo female with PMH of HTN not on medications for several months, pre- diabetic, HLD, has not gone to the doctor for many months as she has been taking care of her family reports 10 days of wound on leg after hitting it on metal rail wound has been getting worse she has been trying to keep it clean with hydrogen peroxide. The last few days it is more red and hot and painful and not both legs are progressively swollen. She took motrin prior to coming in. She has not been on medications in several months. She has not had blood clots in legs before, no chest pain, dyspnea. MD complaint: wound, leg pain, leg swelling Onset (ago): day(s) (10 days) Location: left, right and lower extremity Radiation: non-radiation Severity: moderate Quality: aching Pain Consistency: intermittent Relieving factors: immobilization Exacerbating factors: movement Associated symptoms: rash Treatments prior to arrival: NSAID Related Data Home Medications ?Medication ?Instructions ?Recorded ?Confirmed albuterol sulfate 90 mcg/actuation 2 puff inhalation Q6H PRN Wheezing 02/10/21 01/11/24 aerosol inhaler cholecalciferol (vitamin D3) 25 25 mcg PO DAILY 01/11/24 01/11/24 mcg (1,000 unit) tablet vitamin A 3,000 mcg (10,000 unit) 3,000 mcg PO DAILY 01/11/24 01/11/24 capsule Previous Rx's ?Medication ?Instructions ?Recorded aspirin 81 mg tablet,delayed 81 mg PO DAILY 90 days #90 tabs 02/10/21 release (Adult Aspirin Regimen) compr.stocking,knee,long,large #2 ea 03/11/21 benzonatate 200 mg capsule 200 mg PO TID PRN cough 5 days #15 01/11/24 caps hydrochlorothiazide 25 mg tablet 25 mg PO DAILY 20 days #20 tabs 01/11/24 oseltamivir 75 mg capsule (Tamiflu) 75 mg PO BID 5 days #10 caps 01/11/24 cephalexin 500 mg capsule 500 mg PO QID 7 days #28 caps 05/26/24 furosemide 20 mg tablet (Lasix) 20 mg PO DAILY #5 tabs 05/26/24 hydralazine 10 mg tablet 10 mg PO QID 2 days #8 tabs 05/26/24 hydralazine 25 mg tablet 25 mg PO TID #90 tabs 05/26/24 metformin 500 mg tablet 500 mg PO BID #60 tabs 05/26/24 potassium chloride 20 mEq 20 meq PO DAILY #5 tabs 05/26/24 tablet,extended release Allergies Allergy/AdvReac Type Severity Reaction Status Date / Time amlodipine Allergy Intermediate drowsiness, Verified 05/26/24 03:25 swelling of feet and ankles lisinopril Allergy Intermediate cough Verified 05/26/24 03:25 Lisinopril-Hydrochlorothiazide AdvReac Intermediate Leg Uncoded 05/26/24 03:25 swelling Metoprolol Tartrate AdvReac Intermediate Leg Uncoded 05/26/24 03:25 swelling Review of Systems 2 Review of Systems: Constitutional : No Fever, No Chills ENT/Mouth : No sore throat, No Rhinorrhea, No Swallowing Difficulty Eyes: No Eye Pain, No Swelling, No Redness Cardiovascular : No Chest Pain, no SOB, No Orthopnea, positive Edema Respiratory : No Cough, No Sputum, No Wheezing, no dyspnea Gastrointestinal : No Nausea, No Vomiting, No Diarrhea, No abdominal Pain, No Hematochezia, No Melena Genitourinary : No Dysuria, No Urinary Frequency, No Hematuria Musculoskeletal : No joint pain, No Myalgias Skin : pos Skin Lesion, pos rash Neuro : No Weakness, No Numbness, No Dizziness, No Headache Psych : No Anxiety/Panic, No Depression All other systems reviewed and are negative [facility] Past Medical History Attestation statement: The following information was validated with the patient. Source: old records reviewed Medical History Abnormal Pap smear of cervix Diabetes mellitus Hypertension Renal calculi Diastasis recti Dyslipidemia associated with type 2 diabetes mellitus Abdominal mass Microalbuminuria Renal calculi Morbid obesity Surgical History Hx of prior ablation treatment Family History Family History Father Seizures Mother Seizures Congenital heart disease in adult Hypotension Maternal Grandfather Leukemia Social History Social History Housing: Apartment Alcohol intake: current Alcohol intake frequency: does not drink Patient Tobacco Use Status: Former Tobacco user Smoked in Last 30 Days: No e-Cigarette/Vaping Use: Never Used Second Hand Smoke Exposure: No Use of substances other than those prescribed or required for medical reasons: No Advance Directives: No Advance Directives Information Provided: Yes Do you have a plan to hurt others: No Plan service: No Current occupational status: employed Current occupational exposures/hazards: No Physical Exam ED Vital Signs: Vital Signs - 24 hr 05/26/24 03:25 05/26/24 09:18 05/26/24 10:31 Temperature 98.3 F 97.5 F Pulse Rate 91 68 Respiratory Rate 18 15 Blood Pressure 208/128 H 194/103 H 196/95 H Pulse Oximetry 94 95 Oxygen Delivery Method Room Air Room Air 05/26/24 10:32 Temperature Pulse Rate Respiratory Rate Blood Pressure 196/95 H Pulse Oximetry Oxygen Delivery Method BMI result Body Mass Index 43.7 Appearance: Alert. Oriented X3. No acute distress. Eyes: Pupils equal, round and reactive to light. ENT: Pharynx normal. Neck: Normal inspection. Neck supple. CVS: Normal heart rate and rhythm. Pulses normal. Respiratory: No respiratory distress. Breath sounds normal. Abdomen: Soft and nontender. Skin: Skin warm and dry. Normal skin color. Normal skin turgor. Extremities: 2+ pitting bilateral lower ext edema foot to prox calf with open wound on medical calf left leg yellow drainage surrounding warmth, redness, ttp it is superficial no fluctuance but edges are dark in appearance please see picture below Neuro: Oriented X 3. No motor deficit. No sensory deficit. Medications Administered Discontinued Medications Generic Name Dose Route Start Last Admin Trade Name Freq PRN Reason Stop Dose Admin Furosemide 40 mg 05/26/24 09:15 05/26/24 10:32 Furosemide 40 Mg/4 Ml Vial IVPUSH 05/26/24 09:16 40 mg STAT STA Administration Protocol Hydralazine HCl 10 mg 05/26/24 09:23 05/26/24 10:31 Hydralazine Hcl 10 Mg Tablet PO 05/26/24 09:24 10 mg ONCE ONE Administration Protocol Piperacillin Sod/Tazobactam 50 mls @ 100 mls/hr 05/26/24 07:31 05/26/24 10:24 Sod 3.375 gm/ Sodium Chloride IV 05/26/24 08:00 Infused ONCE ONE Infusion Magnesium Sulfate 2 gm in 50 mls @ 25 mls/hr 05/26/24 09:15 05/26/24 11:56 Magnesium Sulfate/H2o IV 05/26/24 11:14 Infused ONCE ONE Infusion Potassium Chloride 10 meq in 100 mls @ 100 mls/hr 05/26/24 09:15 05/26/24 11:38 Potassium Chloride/H20 IV 05/26/24 10:14 Infused ONCE ONE Infusion Potassium Chloride 40 meq 05/26/24 09:15 05/26/24 10:30 Potassium Chloride Packet 20 Meq Packet PO 05/26/24 09:16 40 meq ONCE ONE Administration Medical Decision Making Medical Decision Making [facility] Narrative: 69 yo female with PMH of HTN not on medications for several months, pre- diabetic, HLD, here with worsening wound, leg edema, uncontrolled HTN though no headaches, neuro deficits CP to suggest end organ damage will need labs, cultures, DVT studies - once labs returned will manage edema and BP accordingly, start on empiric zosyn there is no concern for deeper space abscess or osteo/necrotizing infection at this time. Possible admit vs DC home though given appearance swelling BP she could benefit from inpatient management. Differential Diagnosis Differential Diagnoses: The differential diagnosis associated with the presentation includes cellulitis, CHF, noncompliance, DVT Admission/Observation Consideration of admission/observation: Escalation of care including admission/observation considered offered admission but the patient does not want to stay repeat offers to stay she will not agrees to hydralazine at home refuses insulin and lantus will take metformin can return at any time has glucometer at home she also will get her labs rechecked next week with her doctor Lab Data [facility] Lab Attestation statement: I reviewed the patient's lab results. 05/26/24 08:44 05/26/24 08:43 Labs: Lab Results 05/26/24 05/26/24 05/26/24 Range/Units 03:46 08:43 08:44 WBC 6.9 (4.8-10.8) X10*3/uL RBC 4.24 (4.20-5.50) X10*6/uL Hgb 12.9 (12.0-16.0) g/dl Hct 37.2 (37.0-47.0) % MCV 87.7 (80.0-98.0) fL MCH 30.4 (27.0-33.0) pg MCHC 34.7 (31.0-35.0) g/dl RDW 12.4 (11.0-16.0) % Plt Count 217 (160-400) X10*3/uL MPV 9.4 (9.4-12.3) fL Immature Gran % (Auto) 0.3 (0.0-0.4) % Neut % (Auto) 55.9 (45-73) % Lymph % (Auto) 30.7 (20-40) % [place] % (Auto) 8.1 (2-11) % Eos % (Auto) 4.4 H (0-4) % Baso % (Auto) 0.6 (0-2) % Lymph # (Auto) 2.1 (1.2-4.9) X10*3/uL [place] # (Auto) 0.6 (0.1-1.2) X10*3/uL Eos # (Auto) 0.3 (0.0-0.4) X10*3/uL Baso # (Auto) 0.0 (0.0-0.2) X10*3/uL Abs Immat Gran (auto) 0.02 (0.00-0.03) X10*3/uL Absolute Neuts (auto) 3.9 (2.0-8.3) x10*3/uL Absolute Nucleated RBC 0.000 (0.0-0.012) X10*3/uL Nucleated RBC % (auto) 0.0 (0.0-0.2) /100WBC ESR (0-20) MM/HR PT (11.1-13.3) SEC INR (0.9-1.1) Sodium 141 (135-145) mmol/L Potassium 3.1 L (3.3-5.1) mmol/L Chloride 102 (96-108) mmol/L Carbon Dioxide 30 H (22-29) mmol/L Anion Gap 12 (12-20) BUN 7 L (9-16) mg/dL Creatinine 0.87 (0.5-1.4) mg/dL Estim Creat Clear Calc 85.5 Estimated GFR > 60 POC Glucose 174 H (60-115) mg/dL Random Glucose 184 H (60-115) mg/dL Estimat Average Glucose mg/dL Hemoglobin A1c % (<6.0) % Lactic Acid 1.2 (0.5-2.0) mmol/L Calcium 9.4 (8.4-10.2) mg/dL Magnesium 1.4 L* (1.6-2.6) mg/dL Total Bilirubin 0.6 (0.0-1.0) mg/dL AST 13 (5-31) U/L ALT 10 (0-31) U/L Alkaline Phosphatase 61 (39-117) U/L Troponin I High Sens 15.2 (<3.5-17.0) ng/L C-Reactive Protein 1.00 H (< or = 0.50) mg/dL B-Natriuretic Peptide (<100) pg/mL Total Protein 7.1 (6.5-8.0) g/dL Albumin 3.6 (3.5-5.0) g/dL Urine Color Urine Appearance Urine pH (5.0-9.0) Ur Specific [place] (1.005-1.025) Urine Protein (Neg-Trace) mg/dL Urine Glucose (UA) (Negative) mg/dL Urine Ketones (Negative) mg/dL Urine Blood (Negative) Urine Nitrite (Negative) Ur Leukocyte Esterase (Negative) Urine RBC (0-2) /HPF Urine WBC (0-5) /HPF Ur Squamous Epith Cells (0-2) /HPF Urine Bacteria (None Seen) Hyaline Casts (0-2) /LPF 05/26/24 05/26/24 05/26/24 Range/Units 08:45 08:46 11:31 WBC (4.8-10.8) X10*3/uL RBC (4.20-5.50) X10*6/uL Hgb (12.0-16.0) g/dl Hct (37.0-47.0) % MCV (80.0-98.0) fL MCH (27.0-33.0) pg MCHC (31.0-35.0) g/dl RDW (11.0-16.0) % Plt Count (160-400) X10*3/uL MPV (9.4-12.3) fL Immature Gran % (Auto) (0.0-0.4) % Neut % (Auto) (45-73) % Lymph % (Auto) (20-40) % [place] % (Auto) (2-11) % Eos % (Auto) (0-4) % Baso % (Auto) (0-2) % Lymph # (Auto) (1.2-4.9) X10*3/uL [place] # (Auto) (0.1-1.2) X10*3/uL Eos # (Auto) (0.0-0.4) X10*3/uL Baso # (Auto) (0.0-0.2) X10*3/uL Abs Immat Gran (auto) (0.00-0.03) X10*3/uL Absolute Neuts (auto) (2.0-8.3) x10*3/uL Absolute Nucleated RBC (0.0-0.012) X10*3/uL Nucleated RBC % (auto) (0.0-0.2) /100WBC ESR 27 H (0-20) MM/HR PT 13.1 (11.1-13.3) SEC INR 1.1 (0.9-1.1) Sodium (135-145) mmol/L Potassium (3.3-5.1) mmol/L Chloride (96-108) mmol/L Carbon Dioxide (22-29) mmol/L Anion Gap (12-20) BUN (9-16) mg/dL Creatinine (0.5-1.4) mg/dL Estim Creat Clear Calc Estimated GFR POC Glucose (60-115) mg/dL Random Glucose (60-115) mg/dL Estimat Average Glucose 249 mg/dL Hemoglobin A1c % 10.3 H (<6.0) % Lactic Acid (0.5-2.0) mmol/L Calcium (8.4-10.2) mg/dL Magnesium (1.6-2.6) mg/dL Total Bilirubin (0.0-1.0) mg/dL AST (5-31) U/L ALT (0-31) U/L Alkaline Phosphatase (39-117) U/L Troponin I High Sens (<3.5-17.0) ng/L C-Reactive Protein (< or = 0.50) mg/dL B-Natriuretic Peptide 55 (<100) pg/mL Total Protein (6.5-8.0) g/dL Albumin (3.5-5.0) g/dL Urine Color Yellow Urine Appearance Clear Urine pH 7.0 (5.0-9.0) Ur Specific [place] <= 1.005 (1.005-1.025) Urine Protein Trace (Neg-Trace) mg/dL Urine Glucose (UA) Negative (Negative) mg/dL Urine Ketones Negative (Negative) mg/dL Urine Blood Small (1+) H (Negative) Urine Nitrite Negative (Negative) Ur Leukocyte Esterase Negative (Negative) Urine RBC 6-10 H (0-2) /HPF Urine WBC 0-5 (0-5) /HPF Ur Squamous Epith Cells 0-2 (0-2) /HPF Urine Bacteria None Seen (None Seen) Hyaline Casts 0-2 (0-2) /LPF Independent Interpretation I performed an independent interpretation of an: EKG and Ultrasound (no DVT, no abscess) Interpretation: Rate: 78 Rhythm: NSR 1st degree AVB [place]: Normal P waves. 1st degree avb RBBB ST T wave : nonspecific ST T wave changes lateral leads lateral leads, no LISA qTC: 506 prior studies: no sig change from stress test EKG 2018 The study has been interpreted contemporaneously by me. . Radiology Impression Discussion of test interpretation with radiology: I have reviewed the radiologist's reading. External Record Review External record reviewed: Outpatient record Prescription Management I considered prescription management with: Antibiotic and Other Critical Care Time Critical Care Time Critical Care Time: Yes Total Critical Care Time: 40 Attestation: IV magnesium and IV potassium with repletion and EKG to assess for arrhythmia, monitoring, review of records I attest to this time spent taking care of the patient Discharge Plan Discharge Clinical Impression: Hypertension, uncontrolled, Leg edema, Acute hypokalemia, Hypomagnesemia, Cellulitis, Diabetes Patient Disposition: Home, Self-Care Instructions: Cellulitis (ED), Hypokalemia (ED), Chronic Hypertension (ED), Leg Edema (ED), Hypomagnesemia (ED), Type 2 Diabetes Management for Adults (ED) Additional Instructions: you were offered admission but declined. you can come back at any time you need to see a primary care doctor and wound care center please call to schedule appointment you did not have a blood clot you have diabetes your hemoglobin A1c is 10.3 - you were offered insulin but declined repeat kidney function and electrolytes in 1 week return at any timef or worsening symptoms, blood sugar issues, chest pain, headaches, stroke symptoms, worsening infection or any other concerns take all medications as prescribed start cephalexin tonight, start metformin tonight, start next dose of 10mg hydralazine at dinner tonight Prescriptions: New cephalexin 500 mg capsule 500 mg PO QID 7 Days Qty: 28 0RF metformin 500 mg tablet 500 mg PO BID Qty: 60 2RF furosemide [Lasix] 20 mg tablet 20 mg PO DAILY Qty: 5 0RF potassium chloride 20 mEq tablet extended release 20 meq PO DAILY Qty: 5 0RF hydralazine 10 mg tablet 10 mg PO QID 2 Days Qty: 8 0RF Rx Instructions: first prescription for blood pressure 1st bottle then start the 25mg hydralazine 25 mg tablet 25 mg PO TID Qty: 90 2RF No Action vitamin A 3,000 mcg (10,000 unit) Capsule 3,000 mcg PO DAILY cholecalciferol (vitamin D3) 25 mcg (1,000 unit) Tablet 25 mcg PO DAILY oseltamivir [Tamiflu] 75 mg capsule 75 mg PO BID 5 Days Qty: 10 0RF benzonatate 200 mg capsule 200 mg PO TID PRN (Reason: cough) 5 Days Qty: 15 0RF hydrochlorothiazide 25 mg tablet 25 mg PO DAILY 20 Days Qty: 20 0RF albuterol sulfate 90 mcg/actuation HFA aerosol inhaler 2 puff inhalation Q6H PRN (Reason: Wheezing) aspirin [Adult Aspirin Regimen] 81 mg tablet,delayed release (DR/EC) 81 mg PO DAILY 90 Days Qty: 90 2RF (DME) compr.stocking,knee,long,large Misc See Rx Instructions .ROUTE .MEDSUPPLY Qty: 2 0RF Rx Instructions: As directed Print Language: Occitan
[2024-05-26 08:56] LABS: MANUAL DIFF FLAG NO
[2024-05-26 08:58] LABS: Basophils Percent Auto 0.6 % (0-2); Eosinophils Absolute Auto 0.3 X10*3/uL (0.0-0.4); Eosinophils Percent Auto 4.4 % (0-4); Hematocrit 37.2 % (37.0-47.0); Hemoglobin 12.9 g/dl (12.0-16.0); Imm Gran Abs Auto 0.02 X10*3/uL (0.00-0.03); Imm Gran Pct Auto 0.3 % (0.0-0.4); Lymphocytes Absolute Auto 2.1 X10*3/uL (1.2-4.9); Lymphocytes Percent Auto 30.7 % (20-40); Mean Corpuscular HGB Conc 34.7 g/dl (31.0-35.0); Mean Corpuscular Hemoglobin 30.4 pg (27.0-33.0); Mean Corpuscular Volume 87.7 fL (80.0-98.0); Mean Platelet Volume 9.4 fL (9.4-12.3); Monocytes Absolute Auto 0.6 X10*3/uL (0.1-1.2); Monocytes Percent Auto 8.1 % (2-11); Neutrophils Absolute Auto 3.9 x10*3/uL (2.0-8.3); Neutrophils Percent Auto 55.9 % (45-73); Platelet Count 217 X10*3/uL (160-400); Red Blood Count 4.24 X10*6/uL (4.20-5.50); Red Cell Distribution Width 12.4 % (11.0-16.0); White Blood Count 6.9 X10*3/uL (4.8-10.8)
[2024-05-26 09:03] LABS: INTERNATIONAL NORM RATIO 1.1 (0.9-1.1); Prothrombin Time 13.1 SEC (11.1-13.3)
[2024-05-26 09:09] LABS: Lactic Acid 1.2 mmol/L (0.5-2.0)
[2024-05-26 09:11] LABS: Estimated Average Glucose 249 mg/dL; Hemoglobin A1c % 10.3 % (<6.0)
[2024-05-26 09:13] LABS: Alanine Aminotransferase 10 U/L (0-31); Albumin Level 3.6 g/dL (3.5-5.0); Alkaline Phosphatase 61 U/L (39-117); Anion Gap 12 (12-20); Aspartate Amino Transferase 13 U/L (5-31); Bilirubin Total 0.6 mg/dL (0.0-1.0); Blood Urea Nitrogen 7 mg/dL (9-16); Calcium 9.4 mg/dL (8.4-10.2); Carbon Dioxide 30 mmol/L (22-29); Chloride 102 mmol/L (96-108); Creatinine Clr Calc Pharmacy 85.5; Estimated Glomerular Filt Rate > 60; Glucose Random 184 mg/dL (60-115); Potassium 3.1 mmol/L (3.3-5.1); Sodium 141 mmol/L (135-145); Total Protein 7.1 g/dL (6.5-8.0)
[2024-05-26 09:15] LABS: Magnesium 1.4 mg/dL (1.6-2.6)
[2024-05-26 09:17] LABS: B Type Natriuretic Peptide 55 pg/mL (<100)
[2024-05-26 09:20] LABS: Troponin-I High Sensitivity 15.2 ng/L (<3.5-17.0)
[2024-05-26] MEDS: Piperacillin Sodium/Tazobactam 3.375 GM in 0.9 % Sodium Chloride 50 ML IV (09:20)
[2024-05-26 10:29] LABS: Erythrocyte Sedimentation Rate 27 MM/HR (0-20)
[2024-05-26] MEDS: Potassium Chloride Packet 20 MEQ PACKET 40 MEQ PO (10:30)
[2024-05-26] MEDS: hydrALAZINE HCl 10 MG TABLET PO ×2 (10:31→13:37)
[2024-05-26] MEDS: Furosemide 40 MG/4 ML VIAL IVPUSH (10:32)
[2024-05-26] MEDS: Potassium Chloride/H20 10 MEQ/100 ML PIGGYBACK 100 MEQ IV (10:37)
[2024-05-26] MEDS: Magnesium Sulfate/H2O 2 GM/50 ML PIGGYBACK IV (10:40)
[2024-05-26 11:44] LABS: Appearance Urine Clear; Color Urine Yellow; Glucose Urine UA Negative (Negative); Leukocyte Esterase Urine Negative (Negative); Nitrite Urine Negative (Negative); Specific Gravity - Urine <= 1.005 (1.005-1.025); UMIC TRIGGER UACC YES; Urine Blood Small (1+) (Negative); Urine Ketones Negative (Negative); Urine Protein Trace mg/dL (Neg-Trace)
[2024-05-26 11:49] LABS: Bacteria Urine None Seen (None Seen); Hyaline Casts Urine 0-2 /LPF (0-2); Squamous Epithelial Cell Urine 0-2 /HPF (0-2); WBC Urine 0-5 /HPF (0-5)
[2024-05-26] MEDS: cloNIDine HCL 0.1 MG TABLET PO (14:16)
== END 2024-05-26 15:22 | disposition home or self-care (01) ==
PROVIDERS: Emergency Provider Emergency Medicine; PCP Internal Medicine
DX: R60.0 Localized edema (principal); L03.116 Cellulitis of left lower limb; L03.115 Cellulitis of right lower limb; E87.6 Hypokalemia; R73.03 Prediabetes; I44.0 Atrioventricular block, first degree; I45.10 Unspecified right bundle-branch block; E83.42 Hypomagnesemia; I10 Essential (primary) hypertension; R21 Rash and other nonspecific skin eruption; R06.02 Shortness of breath; Z79.899 Other long term (current) drug therapy
CPT/HCPCS: 36415; 80053; 81001; 82947; 83036; 83605; 83735; 83880; 84484; 85025; 85610; 85652; 86140; 87040; 93005; 93970; 96365; 96366; 96367; 99285; J1940; J2543; J3475; J3480

== ENCOUNTER 2024-06-09 14:01 | Inpatient (IN) | payer MEDICARE, SELFPAY ==
--- NOTE | ~2024-06-09 | MR_ITS ---
EXAMINATION: MRI LOWER EXTREMITY JOINT WITHOUT AND WITH CONTRAST, LEFT CLINICAL INFORMATION: Nonhealing diabetic wound COMPARISON: Radiographs 06/09/2024 TECHNIQUE: MRI without and with intravenous administration of 10 mL of Gadavist is performed on the left lower leg FINDINGS: Marked diffuse subcutaneous edema. Shallow ulcer in the posterior medial aspect of the distal calf. No abscess. The Achilles tendon is intact. No evidence of osteomyelitis. No ankle joint effusion. MR/MR lower leg LT wo/w con IMPRESSION: Shallow ulcer in the posterior medial aspect of the distal calf. No abscess. No evidence of osteomyelitis. Electronically signed by: Tomás Lomeli MD 06/10/2024 02:15 PM EDT
--- NOTE | ~2024-06-09 | US_ITS ---
EXAMINATION: US TRIPLEX LOWER EXTREMITY, BILATERAL CLINICAL INFORMATION: Bilateral lower leg swelling. COMPARISON: None available. TECHNIQUE: Color-flow triplex imaging with spectral analysis and compression Doppler were performed on the bilateral lower extremities. FINDINGS: Respiratory variation, normal compression and augmented flow are noted throughout the bilateral lower extremities. The visualized common femoral vein, superficial femoral vein, profunda femoral vein, popliteal vein and midcalf peroneal and posterior tibial venous segments show no evidence of deep venous thrombosis bilaterally. There is no Hobson's cyst. US/US venous duplex LE BI IMPRESSION: No evidence of deep venous thrombosis involving the bilateral lower extremities. Electronically signed by: Jose A Amado MD 06/09/2024 06:39 PM EDT
--- NOTE | ~2024-06-09 | XR_ITS ---
EXAMINATION: X-ray left tibia and fibula CLINICAL INFORMATION: Bone, rule out osteomyelitis COMPARISON: None TECHNIQUE: 3 views FINDINGS: Posterior soft tissue wound at the level of the distal tibia/fibula, in the region of the skin marker. No air is seen in the soft tissues. No unexpected foreign body. No acute fracture of the tibia-fibula. No erosive or destructive changes are seen. There may be subcutaneous edema present.. Moderate medial, mild-moderate lateral compartment arthritis of the knee. XR/XR tibia fibula LT 2V IMPRESSION: Posterior soft tissue wound at the level of the distal tibia/fibula. No radiographic evidence of erosive or destructive changes to suggest osteomyelitis. Knee arthritis. Electronically signed by: Julian Bahena MD 06/09/2024 05:09 PM EDT
--- NOTE | 2024-06-09 15:01 | ED.SKABFB ---
HPI - Skin/Abscess/Foreign Bdy General Chief complaint: Wound/Laceration Stated complaint: sores on both legs Time Seen by Provider: 06/09/24 15:56 Source: patient Mode of arrival: ambulatory Limitations: no limitations History of Present Illness ED Provider: Meghan Le PA-C HPI narrative: Patient is a 69 year old assigned female at with a history of DM and HTN presenting to the emergency department today with a worsening left lower leg cellulitis / wound. Patient states that she has wounds on both of her lower legs but the one on the left is getting progressively worse. Patient states that it is now draining foul smelling discharge and she finished her antibiotic on 06/02/2024. Patient states that she is not taking her high blood pressure medication because it caused additional swelling. Patient denies any dizziness, lightheadedness, abdominal pain, nausea, vomiting, fever, chills, blurry vision, double vision, loss of vision, chest pain, difficulty breathing, shortness of breath, back pain, night sweats, pain with urination, increased urinary frequency, increased urinary urgency, blood in her urine or stool, syncope or a near syncopal episode, recent trauma or falls, bowel incontinence, bladder incontinence, or any other complaints at this time. Exacerbating factors: none Context: none Associated symptoms: denies other symptoms Treatments prior to arrival: antibiotic (finished on 06/02/2024) Related Data Home Medications ?Medication ?Instructions ?Recorded ?Confirmed albuterol sulfate 90 mcg/actuation 2 puff inhalation Q6H PRN Wheezing 02/10/21 01/11/24 aerosol inhaler cholecalciferol (vitamin D3) 25 25 mcg PO DAILY 01/11/24 01/11/24 mcg (1,000 unit) tablet vitamin A 3,000 mcg (10,000 unit) 3,000 mcg PO DAILY 01/11/24 01/11/24 capsule Previous Rx's ?Medication ?Instructions ?Recorded aspirin 81 mg tablet,delayed 81 mg PO DAILY 90 days #90 tabs 02/10/21 release (Adult Aspirin Regimen) compr.stocking,knee,long,large #2 ea 03/11/21 benzonatate 200 mg capsule 200 mg PO TID PRN cough 5 days #15 01/11/24 caps hydrochlorothiazide 25 mg tablet 25 mg PO DAILY 20 days #20 tabs 01/11/24 oseltamivir 75 mg capsule (Tamiflu) 75 mg PO BID 5 days #10 caps 01/11/24 cephalexin 500 mg capsule 500 mg PO QID 7 days #28 caps 05/26/24 furosemide 20 mg tablet (Lasix) 20 mg PO DAILY #5 tabs 05/26/24 hydralazine 10 mg tablet 10 mg PO QID 2 days #8 tabs 05/26/24 hydralazine 25 mg tablet 25 mg PO TID #90 tabs 05/26/24 metformin 500 mg tablet 500 mg PO BID #60 tabs 05/26/24 potassium chloride 20 mEq 20 meq PO DAILY #5 tabs 05/26/24 tablet,extended release Allergies Allergy/AdvReac Type Severity Reaction Status Date / Time amlodipine Allergy Intermediate drowsiness, Verified 06/09/24 15:06 swelling of feet and ankles lisinopril Allergy Intermediate cough Verified 06/09/24 15:06 Lisinopril-Hydrochlorothiazide AdvReac Intermediate Leg Uncoded 06/09/24 15:06 swelling Metoprolol Tartrate AdvReac Intermediate Leg Uncoded 06/09/24 15:06 swelling Review of Systems Constitutional: Constitutional: Reports no additional constitutional complaints, Denies chills, Denies fever(s) and Denies night sweats Eyes: Eyes: Reports no additional eye complaints, Denies blurry vision, Denies change in vision, Denies diplopia, Denies eye discharge, Denies loss of vision and Denies eye pain ENT: Denies dizziness Cardiovascular: Cardiovascular: Reports no additional cardiovascular complaints, Denies chest pain, Denies lightheadedness, Denies Loss of Consciousness and Denies dyspnea Respiratory: Respiratory: Reports no additional respiratory complaints and Denies dyspnea Gastrointestinal: Gastrointestinal: Reports no additional gastrointestinal complaints, Denies abdominal pain, Denies melena, Denies hematochezia, Denies change in bowel habits and Denies change in stool character Genitourinary: Genitourinary: Denies hematuria, Denies urinary frequency, Denies dysuria, Denies urinary incontinence, Denies urinary hesitancy and Denies urinary urgency Musculoskeletal: Musculoskeletal: Reports no additional musculoskeletal complaints, Denies numbness and Denies tingling Comments: worsening left lower extremity wound wound present to the right lower extremity Neurologic: Denies dizziness, Denies loss of vision, Denies numbness and Denies tingling Psychiatric: Psychiatric: Reports no additional psychiatric complaints Endocrine: Endocrine: Reports no additional endocrine complaints Hematologic/Lymphatic: Hematologic/Lymphatic: Reports no additional hematologic/lymphatic complaints Allergic/Immunologic: Allergic/Immunologic: Reports no additional allergic/immunologic complaints PMFSH Past Medical History Attestation statement: The following information was validated with the patient. Source: old records reviewed and nursing notes reviewed Medical History Abnormal Pap smear of cervix Diabetes mellitus Hypertension Renal calculi Diastasis recti Dyslipidemia associated with type 2 diabetes mellitus Abdominal mass Microalbuminuria Renal calculi Morbid obesity Surgical History Hx of prior ablation treatment Family History Family History Father Seizures Mother Seizures Congenital heart disease in adult Hypotension Maternal Grandfather Leukemia Social History Social History Housing: Apartment Alcohol intake: current Alcohol intake frequency: does not drink Patient Tobacco Use Status: Former Tobacco user e-Cigarette/Vaping Use: Never Used Second Hand Smoke Exposure: No Advance Directives: No Advance Directives Information Provided: No service: No Current occupational status: employed Current occupational exposures/hazards: No Physical Exam Vital Signs: Vital Signs: Last Vital Signs Temp 98.4 F 06/09/24 18:16 Pulse 74 06/09/24 18:16 Resp 17 06/09/24 18:16 BP 193/110 H 06/09/24 18:16 Pulse Ox 96 06/09/24 18:16 O2 Del Method Room Air 06/09/24 18:16 BMI result Body Mass Index 46.6 Const: General: cooperative, no acute distress, alert and awake Nutritional Appearance: well nourished Orientation/consciousness: patient oriented x3 Limitations: no limitations HEENT: Head: Yes normal to inspection and Yes atraumatic Ears: hearing grossly normal bilaterally and external ears normal General nose exam: Normal external nose present, no nasal discharge noted and no epistaxis Face and sinus: Yes normal facial exam, No abrasion and No laceration Mouth: Normal oral and palatal mucosa present, no drooling and no muffled voice Eyes: General: appearance normal, both eyes and all related structures Periorbital: periorbital findings normal Eyelids: Yes eyelids normal Conjunctivae: conjunctivae normal Pupils: Equal, round and reactive pupils present EOM: EOMs intact bilaterally Neck: Neck: Yes normal visual inspection, Yes full ROM and Yes no lymphadenopathy Chest: Chest palpation & inspection: normal inspection of the chest Resp: Effort & Inspection: normal respiratory effort and able to speak in complete sentences GI: Inspection: Yes normal to inspection Neuro: General: patient oriented x3 and moves all extremities Cranial nerves: Yes Equal, round and reactive pupils present Cognition (Neuro): normal cognition Extrem: Other: General: Yes full ROM and Yes capillary refill normal Psych: Appearance: grossly normal Mental Status: mental status grossly normal Affect: normal affect Attitude: cooperative Thought process: Normal thought process present Thought content: Normal thought content present Insight: Good insight present (Psych) Course Course Course Narrative: This is a Rapid Medical Exam performed in triage by Rosa Fonseca PA-C. Full HPI, ROS and PE to be performed by primary ED provider. 69 yo F w/PMHx HTN, obesity, DM presenting to the ED c/o draining wound to LLE x3 wks and wound to RLE x 3-4 days ago. denies fever, NINO, dizziness, CP. Did NOT take BP meds today PE: HTNsive 218/135, +open wound to LLE with active drainage. +small open wound to RLE. +pitting edema b/l Plan: Labs, Lactic/blood cx, EKG, XR Medications Administered Discontinued Medications Generic Name Dose Route Start Last Admin Trade Name Freq PRN Reason Stop Dose Admin Piperacillin Sod/Tazobactam 50 mls @ 100 mls/hr 06/09/24 16:21 06/09/24 17:49 Sod 3.375 gm/ Sodium Chloride IV 06/09/24 16:50 Infused ONCE ONE Infusion Vancomycin HCl 2,000 mg in 500 mls @ 250 mls/hr 06/09/24 16:25 06/09/24 17:13 Vancomycin/Ns IV 06/09/24 18:24 250 mls/hr ONCE ONE Administration Medical Decision Making Medical Decision Making [facility] Narrative: Patient is a 69 year old assigned female at with a history of DM and HTN presenting to the emergency department today with a worsening left lower leg cellulitis / wound. Patient's physical exam was as noted in the physical exam portion of this note. Patient's blood work showed an elevated ESR of 29, CRP of 2.62, and decreased potassium of 3.2. Patient's EKG was unremarkable. Patient's left tib fib x-ray and bilateral lower leg ultrasound showed no acute process. Patient's clinical presentation is not consistent with sepsis (@1900). I spoke to the hospitalist team who agreed to admission. I explained my physical exam findings as well as all test results to the patient. I answered all questions asked by the patient. Patient verbalized agreement and understanding with this treatment plan and admission. Differential Diagnosis Differential Diagnoses: The differential diagnosis associated with the presentation includes Cellulitis Lower leg wound Osteomyelitis Admission/Observation Consideration of admission/observation: Escalation of care including admission/observation considered Patient admitted. Consult Healthcare Provider Management of the patient was discussed with: Hospitalist (agreed to admission as noted in the MDM Rationale portion of this note.) Lab Data [facility] Lab Attestation statement: I reviewed the patient's lab results. My interpretation of these results are in the MDM Rationale portion of this note. 06/09/24 15:38 06/09/24 15:38 Labs: Lab Results 06/09/24 Range/Units 15:38 WBC 6.6 (4.8-10.8) X10*3/uL RBC 4.20 (4.20-5.50) X10*6/uL Hgb 12.6 (12.0-16.0) g/dl Hct 36.4 L (37.0-47.0) % MCV 86.7 (80.0-98.0) fL MCH 30.0 (27.0-33.0) pg MCHC 34.6 (31.0-35.0) g/dl RDW 12.4 (11.0-16.0) % Plt Count 204 (160-400) X10*3/uL MPV 9.4 (9.4-12.3) fL Immature Gran % (Auto) 0.3 (0.0-0.4) % Neut % (Auto) 55.6 (45-73) % Lymph % (Auto) 31.6 (20-40) % [place] % (Auto) 7.7 (2-11) % Eos % (Auto) 4.2 H (0-4) % Baso % (Auto) 0.6 (0-2) % Lymph # (Auto) 2.1 (1.2-4.9) X10*3/uL [place] # (Auto) 0.5 (0.1-1.2) X10*3/uL Eos # (Auto) 0.3 (0.0-0.4) X10*3/uL Baso # (Auto) 0.0 (0.0-0.2) X10*3/uL Abs Immat Gran (auto) 0.02 (0.00-0.03) X10*3/uL Absolute Neuts (auto) 3.7 (2.0-8.3) x10*3/uL Absolute Nucleated RBC 0.000 (0.0-0.012) X10*3/uL Nucleated RBC % (auto) 0.0 (0.0-0.2) /100WBC ESR 29 H (0-20) MM/HR PT 12.8 (11.1-13.3) SEC INR 1.1 (0.9-1.1) Sodium 140 (135-145) mmol/L Potassium 3.2 L (3.3-5.1) mmol/L Chloride 103 (96-108) mmol/L Carbon Dioxide 28 (22-29) mmol/L Anion Gap 12 (12-20) BUN 10 (9-16) mg/dL Creatinine 0.80 (0.5-1.4) mg/dL Estim Creat Clear Calc 96.6 Estimated GFR > 60 Random Glucose 167 H (60-115) mg/dL Lactic Acid 1.3 (0.5-2.0) mmol/L Calcium 9.1 (8.4-10.2) mg/dL Magnesium 1.7 (1.6-2.6) mg/dL Total Bilirubin 0.3 (0.0-1.0) mg/dL Direct Bilirubin 0.1 (0.0-0.5) mg/dL AST 16 (5-31) U/L ALT 18 (0-31) U/L Alkaline Phosphatase 60 (39-117) U/L Troponin I High Sens 14.6 (<3.5-17.0) ng/L C-Reactive Protein 2.62 H (< or = 0.50) mg/dL Total Protein 7.0 (6.5-8.0) g/dL Albumin 3.6 (3.5-5.0) g/dL Independent Interpretation I performed an independent interpretation of an: EKG, Plain X-Ray and Ultrasound Interpretation: My interpretation is in agreement with the radiologist's impression of these imaging studies. EXAMINATION: X-ray left tibia and fibula CLINICAL INFORMATION: Bone, rule out osteomyelitis COMPARISON: None TECHNIQUE: 3 views FINDINGS: Posterior soft tissue wound at the level of the distal tibia/fibula, in the region of the skin marker. No air is seen in the soft tissues. No unexpected foreign body. No acute fracture of the tibia-fibula. No erosive or destructive changes are seen. There may be subcutaneous edema present.. Moderate medial, mild-moderate lateral compartment arthritis of the knee. XR/XR tibia fibula LT 2V IMPRESSION: Posterior soft tissue wound at the level of the distal tibia/fibula. No radiographic evidence of erosive or destructive changes to suggest osteomyelitis. Knee arthritis. Electronically signed by: Julian Bahena MD 06/09/2024 05:09 PM EDT RP Dictated By: Julian Bahena MD Signed By: Electronically signed by Julian Bahena MD 06/09/24 1709 EXAMINATION: US TRIPLEX LOWER EXTREMITY, BILATERAL CLINICAL INFORMATION: Bilateral lower leg swelling. COMPARISON: None available. TECHNIQUE: Color-flow triplex imaging with spectral analysis and compression Doppler were performed on the bilateral lower extremities. FINDINGS: Respiratory variation, normal compression and augmented flow are noted throughout the bilateral lower extremities. The visualized common femoral vein, superficial femoral vein, profunda femoral vein, popliteal vein and midcalf peroneal and posterior tibial venous segments show no evidence of deep venous thrombosis bilaterally. There is no Hobson's cyst. US/US venous duplex LE BI IMPRESSION: No evidence of deep venous thrombosis involving the bilateral lower extremities. Electronically signed by: Jose A Amado MD 06/09/2024 06:39 PM EDT Dictated By: Jose A Amado MD Signed By: Electronically signed by Jose A Amado MD 06/09/24 1839 Vent. Rate: 076 BPM Atrial Rate: 076 BPM P-R Int: 222 ms QRS Dur: 162 ms QT Int: 454 ms P-R-T Axes: 043 -37 016 degrees QTc Int: 510 ms Sinus rhythm with 1st degree A-V block Left axis deviation Right bundle branch block Minimal voltage criteria for LVH, may be normal variant ( R in aVL ) Abnormal ECG When compared with ECG of 26-MAY-2024 07:49, No significant change was found DD/ [id number] Radiology Impression Discussion of test interpretation with radiology: I have reviewed the radiologist's reading. Chronic Conditions Patient?s care impacted by: Diabetes and Hypertension Critical Care Time Critical Care Time Critical Care Time: Yes Total Critical Care Time: 47 Attestation: I spent 47 minutes of Critical Care Time with this patient. This does not include time spent on separately reported billable procedures. Discharge Plan Discharge Clinical Impression: Cellulitis, Hypertension, Diabetes Patient Disposition: Admitted As Inpatient
[2024-06-09 15:02] VITALS: BP 218/135; PULSE 89; RESP 18; TEMP 36.9; O2SAT 96; BMI 46.6
--- NOTE | 2024-06-09 15:05 | ECG_ITS ---
Test Reason : HYPERTENTION Blood Pressure : / mmHG Vent. Rate : 076 BPM Atrial Rate : 076 BPM P-R Int : 222 ms QRS Dur : 162 ms QT Int : 454 ms P-R-T Axes : 043 -37 016 degrees QTc Int : 510 ms Sinus rhythm with 1st degree A-V block Left axis deviation Right bundle branch block Minimal voltage criteria for LVH, may be normal variant ( R in aVL ) Abnormal ECG When compared with ECG of 26-MAY-2024 07:49, No significant change was found Referred By: Rosa Fonseca Electronically Signed By:FRANCI OSEI
[2024-06-09 15:43] LABS: MANUAL DIFF FLAG NO
[2024-06-09 15:48] LABS: Basophils Percent Auto 0.6 % (0-2); Eosinophils Absolute Auto 0.3 X10*3/uL (0.0-0.4); Eosinophils Percent Auto 4.2 % (0-4); Hematocrit 36.4 % (37.0-47.0); Hemoglobin 12.6 g/dl (12.0-16.0); Imm Gran Abs Auto 0.02 X10*3/uL (0.00-0.03); Imm Gran Pct Auto 0.3 % (0.0-0.4); Lymphocytes Absolute Auto 2.1 X10*3/uL (1.2-4.9); Lymphocytes Percent Auto 31.6 % (20-40); Mean Corpuscular HGB Conc 34.6 g/dl (31.0-35.0); Mean Corpuscular Volume 86.7 fL (80.0-98.0); Mean Platelet Volume 9.4 fL (9.4-12.3); Monocytes Absolute Auto 0.5 X10*3/uL (0.1-1.2); Monocytes Percent Auto 7.7 % (2-11); Neutrophils Absolute Auto 3.7 x10*3/uL (2.0-8.3); Neutrophils Percent Auto 55.6 % (45-73); Platelet Count 204 X10*3/uL (160-400); Red Cell Distribution Width 12.4 % (11.0-16.0); White Blood Count 6.6 X10*3/uL (4.8-10.8)
[2024-06-09 15:55] LABS: INTERNATIONAL NORM RATIO 1.1 (0.9-1.1); Prothrombin Time 12.8 SEC (11.1-13.3)
[2024-06-09 15:57] LABS: Lactic Acid 1.3 mmol/L (0.5-2.0)
[2024-06-09 16:01] LABS: Alanine Aminotransferase 18 U/L (0-31); Albumin Level 3.6 g/dL (3.5-5.0); Alkaline Phosphatase 60 U/L (39-117); Anion Gap 12 (12-20); Aspartate Amino Transferase 16 U/L (5-31); Bilirubin Direct 0.1 mg/dL (0.0-0.5); Bilirubin Total 0.3 mg/dL (0.0-1.0); Blood Urea Nitrogen 10 mg/dL (9-16); C Reactive Protein 2.62 mg/dL (< or = 0.50); Calcium 9.1 mg/dL (8.4-10.2); Carbon Dioxide 28 mmol/L (22-29); Chloride 103 mmol/L (96-108); Creatinine Clr Calc Pharmacy 96.6; Estimated Glomerular Filt Rate > 60; Glucose Random 167 mg/dL (60-115); Magnesium 1.7 mg/dL (1.6-2.6); Potassium 3.2 mmol/L (3.3-5.1); Sodium 140 mmol/L (135-145)
[2024-06-09 16:07] LABS: Troponin-I High Sensitivity 14.6 ng/L (<3.5-17.0)
[2024-06-09 16:50] VITALS: BP 174/87; PULSE 72; RESP 13; O2SAT 96
[2024-06-09] MEDS: Piperacillin Sodium/Tazobactam 3.375 GM in 0.9 % Sodium Chloride 50 ML IV ×2 (17:09→22:15)
[2024-06-09] MEDS: vancomycin/NS 2,000 MG/500 ML PLAST..BAG 250 MG IV (17:13)
[2024-06-09 17:50] LABS: Erythrocyte Sedimentation Rate 29 MM/HR (0-20)
[2024-06-09 18:16] VITALS: BP 193/110; PULSE 74; RESP 17; TEMP 36.9; O2SAT 96
--- NOTE | 2024-06-09 19:10 | PC.NURSE ---
This RN assumed pt care @ 1900. Plan of care ongoing.
--- NOTE | 2024-06-09 19:21 | P.HPHOSP_ITS ---
History of Present Illness Date of Service: 06/09/24 Chief Complaint: Leg infection This is a 69-year-old female with pertinent history of hypertension, her-gumbtyd-dkddjiuui diabetes mellitus, STEVE on CPAP who presents to the emergency department for concerns of left leg infection. Patient states that about 3 weeks ago she had trauma to her left lower extremity. Since then she has had wound which is nonhealing. It turned red, warm and swollen. Patient was seen in the ER and discharged home on p.o. antibiotics. Patient states she completed her antibiotic course the infection worsened. It is with foul- smelling purulent drainage. Fevers or chills. No nausea, vomiting, chest discomfort, palpitations, shortness of breath, abdominal pain, changes in urinary or bowel habits. No history of similar skin infection in the past. Does endorse that she missed few doses of her antihypertensives In the emergency department, patient was given empiric IV antibiotics. Imaging without concerns for osteomyelitis. Review of Systems 2 Constitutional: Constitutional: Reports no additional constitutional complaints Cardiovascular: Cardiovascular: Reports no additional cardiovascular complaints Respiratory: Respiratory: Reports no additional respiratory complaints Gastrointestinal: Gastrointestinal: Reports no additional gastrointestinal complaints Genitourinary: Genitourinary: Reports no additional female genitourinary complaints [facility] Medical History Abnormal Pap smear of cervix Diabetes mellitus Hypertension Renal calculi Diastasis recti Dyslipidemia associated with type 2 diabetes mellitus Abdominal mass Microalbuminuria Renal calculi Morbid obesity Family History Father Seizures Mother Seizures Congenital heart disease in adult Hypotension Maternal Grandfather Leukemia Surgical History Hx of prior ablation treatment Social History Housing: Apartment Alcohol intake: current Alcohol intake frequency: does not drink Patient Tobacco Use Status: Former Tobacco user e-Cigarette/Vaping Use: Never Used Second Hand Smoke Exposure: No Advance Directives: No Advance Directives Information Provided: No service: No Current occupational status: employed Current occupational exposures/hazards: No Meds Allergies Allergy/AdvReac Type Severity Reaction Status Date / Time amlodipine Allergy Intermediate drowsiness, Verified 06/09/24 15:06 swelling of feet and ankles lisinopril Allergy Intermediate cough Verified 06/09/24 15:06 Lisinopril-Hydrochlorothiazide AdvReac Intermediate Leg Uncoded 06/09/24 15:06 swelling Metoprolol Tartrate AdvReac Intermediate Leg Uncoded 06/09/24 15:06 swelling Home Medications ?Medication ?Instructions ?Recorded ?Confirmed ?Last Taken ?Type albuterol sulfate 90 mcg/actuation 2 puff inhalation Q6H PRN Wheezing 02/10/21 01/11/24 Unknown History aerosol inhaler cholecalciferol (vitamin D3) 25 25 mcg PO DAILY 01/11/24 01/11/24 Unknown History mcg (1,000 unit) tablet vitamin A 3,000 mcg (10,000 unit) 3,000 mcg PO DAILY 01/11/24 01/11/24 Unknown History capsule Physical Exam 2 Vital Signs and Narrative: Vital Signs: Last Vital Signs Temp 98.4 F 06/09/24 18:16 Pulse 74 06/09/24 18:16 Resp 17 06/09/24 18:16 BP 193/110 H 06/09/24 18:16 Pulse Ox 96 06/09/24 18:16 O2 Del Method Room Air 06/09/24 18:16 BMI result Body Mass Index 46.6 Middle-aged female lying in bed in no distress Neck supple, no JVD Regular rate and rhythm, S1-S2 heard Regular breath sounds bilaterally, no wheezing or crackles appreciated Abdomen soft nontender, no guarding, no rigidity Patient is awake, alert and oriented to self, place, time and person ; no focal motor deficit Psych: Normal mood Left leg with open wound draining foul-smelling serosanguineous discharge, surrounding erythema and warmth (as pictured below) Skin: Other: Results Labs 06/09/24 15:38 06/09/24 15:38 Labs: Laboratory Results - last 24 hr 06/09/24 15:38 MCV 86.7 MCH 30.0 MCHC 34.6 RDW 12.4 Plt Count 204 MPV 9.4 Immature Gran % (Auto) 0.3 Neut % (Auto) 55.6 Lymph % (Auto) 31.6 [place] % (Auto) 7.7 Eos % (Auto) 4.2 H Baso % (Auto) 0.6 Lymph # (Auto) 2.1 [place] # (Auto) 0.5 Eos # (Auto) 0.3 Baso # (Auto) 0.0 Abs Immat Gran (auto) 0.02 Absolute Neuts (auto) 3.7 Absolute Nucleated RBC 0.000 Nucleated RBC % (auto) 0.0 ESR 29 H PT 12.8 INR 1.1 Anion Gap 12 Estim Creat Clear Calc 96.6 Estimated GFR > 60 Random Glucose 167 H Lactic Acid 1.3 Calcium 9.1 Magnesium 1.7 Total Bilirubin 0.3 Direct Bilirubin 0.1 AST 16 ALT 18 Alkaline Phosphatase 60 Troponin I High Sens 14.6 C-Reactive Protein 2.62 H Total Protein 7.0 Albumin 3.6 Imaging Radiologist's Impressions: Impressions Tibia/Fibula X-Ray 06/09/24 15:05 IMPRESSION: Posterior soft tissue wound at the level of the distal tibia/fibula. No radiographic evidence of erosive or destructive changes to suggest osteomyelitis. Knee arthritis. Electronically signed by: Julian Bahena MD 06/09/2024 05:09 PM EDT RP Venous Duplex 06/09/24 17:45 IMPRESSION: No evidence of deep venous thrombosis involving the bilateral lower extremities. Electronically signed by: Jose A Amado MD 06/09/2024 06:39 PM EDT RP Assessment and Plan (1) Left leg cellulitis: Status: Acute Plan This is a 69-year-old female with pertinent history of hypertension, uud-npxssvy-hzhknqzdx diabetes mellitus, STEVE on CPAP who presents to the emergency department for concerns of left leg infection. #. Left lower extremity cellulitis with infected wound: Will admit patient for IV antibiotics due to failure of outpatient p.o. antibiotics. Initiated empiric IV vancomycin and Zosyn. Consulting Wound Care. X-ray without concerns for osteomyelitis. Obtaining MRI to delineate underlying anatomy. No sepsis #. Hypertensive urgency: Due to noncompliance with p.o. antihypertensives. Resume home antihypertensives and titrate #. Hzt-jnthavz-sbngnrpjz diabetes mellitus: Initiating Accu-Cheks with sliding scale insulin #. STEVE: Continue CPAP at bedtime #. Morbid obesity: Counseled regarding diet and exercise Med rec pending DVT prophylaxis: Lovenox Full code Admit as inpatient and will require two night minimum hospital stay for IV antibiotics (as above), which is not possible in a lesser acute setting. Quality Stroke Does the patient have a stroke diagnosis?: No VTE Prior VTE?: No VTE Risk Level:: Medical - moderate - high VTE Device Contraindication: Treatment Not Indicated VTE Drug Contraindication: N/A - Med Ordered
--- NOTE | 2024-06-09 19:35 | PC.NURSE ---
Pt ca&ox4, no signs of distress. Pt ambulates with a steady gait Complete bed change done and pt changed into a clean gown Provider in the room with pt to discuss plan. Pt admitted for IV abx Daughter at bedside Per dr kody fuentes for pt to eat Pt reporting 8/10 pain in her leg req pain meds Plan of care ongoing.
--- NOTE | 2024-06-09 19:41 | PHA.PROG ---
Admission Date/Time: June 09, 2024 19:20 Indication: SKIN Weight in k.9 kG Serum Creatinine - Last 168 Hours 06/09/24 15:38 Creatinine 0.80 Estimated CrCl and GFR - Last 168 Hours 06/09/24 15:38 Estim Creat Clear Calc 96.6 Estimated GFR > 60 Vancomycin Loading Dose: 2000 Current Vancomycin Dosing Regimen: 100Q 12 Vancomycin Monitoring using AUC goal of 400 - 600 range with trough as surrogate marker: 552 Date and Time for next Vancomycin Level to be drawn: 06/11 @ 0600 Pharmacist Comments on Vancomycin Plan: Vancomycin dosing will take advantage of [employer] as a clinical decision support tool that uses Bayesian modeling to calculate individual patient's pharmacokinetic parameters and forecast the patient's drug concentration time course with the target goal AUC 24 range of 400 - 600 mg/L/hr.
[2024-06-09] MEDS: Potassium Chloride Packet 20 MEQ PACKET 40 MEQ PO (20:25)
[2024-06-09] MEDS: Enoxaparin Sodium 40 MG/0.4 ML SYRINGE SUBCUT (20:26)
[2024-06-09 20:27] VITALS: BP 193/110
[2024-06-09] MEDS: hydrALAZINE HCl 20 MG/ML VIAL 10 MG IVPUSH (20:27)
--- NOTE | 2024-06-09 20:34 | PC.NURSE ---
Pt medicated per dec. Pt requested and given food Pts daughter remains at bedside. Plan of care ongoing.
--- NOTE | 2024-06-09 20:59 | PC.NURSE ---
Report given to Bailey RN at overflow. Plan of care ongoing.
[2024-06-09] MEDS: traMADoL HCL 50 MG TABLET 25 MG PO (21:02)
--- NOTE | 2024-06-09 21:06 | PC.NURSE ---
Pt medicated per mar for pain. Plan of care ongoing.
[2024-06-09 21:37] LABS: Glucose, Whole Blood 116 mg/dL (60-115)
[2024-06-09] MEDS: Acetaminophen 325 MG TABLET 650 MG PO (22:20)
[2024-06-09] MEDS: Melatonin 3 MG TABLET 6 MG PO (22:21)
[2024-06-09 23:03] VITALS: BP 180/106; PULSE 75; RESP 18; TEMP 37; O2SAT 98
[2024-06-10] VITALS (12 sets, daily range): BP systolic 180–221; BP diastolic 75–117; PULSE 71–86; RESP 18; TEMP 36.6–37.2; O2SAT 97–98
[2024-06-10] MEDS: hydrALAZINE HCl 25 MG TABLET PO ×4 (00:01→22:15)
--- NOTE | 2024-06-10 02:12 | PC.NURSE ---
Addendum entered by Jose Mckenna RN 06/10/24 06:14: 0614 VS BP 194/91, P74, T98, O2 98% RA. aware. No new orders. Original Note: Patient BP 180/106 @2330, Dr. Terrell notified, ordered hydralazine 25mg PO and administered. BP rechecked 180/75 notified provider, no new orders.
[2024-06-10] MEDS: Piperacillin Sodium/Tazobactam 3.375 GM in 0.9 % Sodium Chloride 50 ML IV ×4 (03:40→22:15)
[2024-06-10] MEDS: Acetaminophen 325 MG TABLET 650 MG PO ×2 (03:43→11:29)
[2024-06-10 05:32] LABS: MANUAL DIFF FLAG NO
[2024-06-10 05:37] LABS: Basophils Absolute Auto 0.1 X10*3/uL (0.0-0.2); Basophils Percent Auto 0.7 % (0-2); Eosinophils Absolute Auto 0.4 X10*3/uL (0.0-0.4); Hematocrit 36.6 % (37.0-47.0); Hemoglobin 12.4 g/dl (12.0-16.0); Imm Gran Abs Auto 0.02 X10*3/uL (0.00-0.03); Imm Gran Pct Auto 0.3 % (0.0-0.4); Lymphocytes Absolute Auto 1.9 X10*3/uL (1.2-4.9); Mean Corpuscular HGB Conc 33.9 g/dl (31.0-35.0); Mean Corpuscular Hemoglobin 30.1 pg (27.0-33.0); Mean Corpuscular Volume 88.8 fL (80.0-98.0); Mean Platelet Volume 9.5 fL (9.4-12.3); Monocytes Absolute Auto 0.6 X10*3/uL (0.1-1.2); Monocytes Percent Auto 8.4 % (2-11); Neutrophils Absolute Auto 4.6 x10*3/uL (2.0-8.3); Neutrophils Percent Auto 60.6 % (45-73); Platelet Count 182 X10*3/uL (160-400); Red Blood Count 4.12 X10*6/uL (4.20-5.50); Red Cell Distribution Width 12.6 % (11.0-16.0); White Blood Count 7.6 X10*3/uL (4.8-10.8)
[2024-06-10 05:51] LABS: Anion Gap 14 (12-20); Blood Urea Nitrogen 8 mg/dL (9-16); Calcium 8.8 mg/dL (8.4-10.2); Carbon Dioxide 25 mmol/L (22-29); Chloride 105 mmol/L (96-108); Creatinine Clr Calc Pharmacy 101.7; Estimated Glomerular Filt Rate > 60; Glucose Random 157 mg/dL (60-115); Potassium 3.6 mmol/L (3.3-5.1); Sodium 140 mmol/L (135-145)
--- NOTE | 2024-06-10 06:44 | PC.NURSE ---
BP 194/91, P74 hydralazine 25mg ordered and administered. Pt denies pain, resting comfortably. Plan of care ongoing.
--- NOTE | 2024-06-10 07:05 | PC.NURSE ---
report recieved from previous RN, patient resting comfortably on stretcher, respirations even and unlabored, offering no complaints to this RN at this time, awaiting med surg bed placement
[2024-06-10 07:34] LABS: Glucose, Whole Blood 138 mg/dL (60-115)
[2024-06-10] MEDS: 0.9 % Sodium Chloride Flush 3 ML SYRINGE IVFLUSH ×3 (07:40→23:45)
[2024-06-10] MEDS: vancomycin HCL 1,000 MG in 0.9 % Sodium Chloride 250 ML 270 MG IV (07:54)
--- NOTE | 2024-06-10 08:06 | PC.NURSE ---
patient provided with breakfast tray at this time, roz willett per DEC, offering no complaints
--- NOTE | 2024-06-10 09:27 | PC.NURSE ---
MRI screening completed with patient
--- NOTE | 2024-06-10 10:32 | PHA.MEDREC ---
Pharmacy Consult ? Medication Reconciliation Pharmacy has completed the medication reconciliation. Spoke to patient and confirmed medication list. Patient said the meds that she was discharged with on 05/26/24 (furosemide, hydralazine 10 mg, potassium) only last a few days. Patient said metformin gives her diarrhea so she's not taking it anymore.
--- NOTE | 2024-06-10 11:14 | HO.PM.IMPN ---
Subjective Subjective Date of Service: 06/10/24 Interval History: No acute issues overnight Review of Systems Denies chest pain Shortness of breath Denies nausea vomiting diarrhea Denies fever chills Physical Exam Vital Signs: Vital Signs: Last Vital Signs Temp 98.0 F 06/10/24 05:45 Pulse 74 06/10/24 05:45 Resp 18 06/10/24 05:45 BP 194/91 H 06/10/24 06:43 Pulse Ox 98 06/10/24 05:45 O2 Del Method Room Air 06/10/24 05:45 BMI result Body Mass Index 46.6 Const: Other: Awake alert no acute distress Resp: Other: Clear to auscultation bilaterally no rales rhonchi or wheezes Cardio: Other: No S4; positive S1-S2; no S3 murmurs rubs or gallops GI: Other: Soft nontender nondistended normoactive bowel sounds Extrem: Other: No edema bilaterally Objective Data Active Medications Acetaminophen (Acetaminophen 325 Mg Tablet) 650 mg PO Q6H PRN PRN Reason: Pain, Mild (Pain Scale 1-3), fever or headache Last Admin: 06/10/24 03:43 Dose: 650 mg Documented By: YOAV Calcium Carbonate (Calcium Carbonate 750 Mg Tab.Chew) 750 mg PO Q4H PRN PRN Reason: Heartburn Enoxaparin Sodium (Enoxaparin Sodium 40 Mg/0.4 Ml Syringe) 40 mg SUBCUT Q24H [facility] Last Admin: 06/09/24 20:26 Dose: 40 mg Documented By: REMI Glucose (Glucose Gel 15 Gm Gel..Gram.) 15 gm PO Q15M PRN; Protocol PRN Reason: per Hypoglycemia Standing Ord. Piperacillin Sod/Tazobactam (Sod 3.375 gm/ Sodium Chloride) 50 mls @ 100 mls/hr IV Q6H [facility] Last Admin: 06/10/24 10:02 Dose: 100 mls/hr Documented By: SATINDER Dextrose (D10) 250 mls @ 750 mls/hr IV Q15M PRN; Protocol PRN Reason: per Hypoglycemia Standing Ord. Vancomycin HCl 1,000 mg/ (Sodium Chloride) 270 mls @ 270 mls/hr IV Q12H [facility] Last Infusion: 06/10/24 08:58 Dose: Infused Documented By: SATINDER Insulin Human Lispro (Insulin Lispro 100 Unit/Ml 3 Ml Vial) 0 unit SUBCUT QIDACHLuis Enrique [facility]; Protocol Last Admin: 06/10/24 07:39 Dose: Not Given Documented By: SATINDER Non-Admin Reason: No Insulin Coverage Comments: order parameters not met Magnesium Hydroxide (Milk Of Magnesia 30 Ml Oral.Susp) 30 ml PO DAILY PRN PRN Reason: Constipation Melatonin (Melatonin 3 Mg Tablet) 6 mg PO BEDTIME PRN PRN Reason: Insomnia Last Admin: 06/09/24 22:21 Dose: 6 mg Documented By: TOBIAS Ondansetron HCl (Ondansetron Hcl 4 Mg/2 Ml Vial) 4 mg IVPUSH Q8H PRN PRN Reason: Nausea and Vomiting Pharmacy Consult (Consult Rx Vancomycin Dosing) 1 each MISCELLANE DAILY PRN PRN Reason: Consult order Sodium Chloride (0.9 % Sodium Chloride Flush 3 Ml Syringe) 3 ml [facility] Last Admin: 06/10/24 07:40 Dose: 3 ml Documented By: SATINDER Tramadol HCl (Tramadol Hcl 50 Mg Tablet) 25 mg PO Q6H PRN PRN Reason: Pain, Severe (Pain Scale 7-10) Last Admin: 06/09/24 21:02 Dose: 25 mg Documented By: REMI Labs 06/10/24 05:25 06/10/24 05:25 Labs: Laboratory Results - last 24 hr 06/09/24 06/09/24 06/10/24 15:38 21:32 05:25 MCV 86.7 88.8 MCH 30.0 30.1 MCHC 34.6 33.9 RDW 12.4 12.6 Plt Count 204 182 MPV 9.4 9.5 Immature Gran % (Auto) 0.3 0.3 Neut % (Auto) 55.6 60.6 Lymph % (Auto) 31.6 25.0 [place] % (Auto) 7.7 8.4 Eos % (Auto) 4.2 H 5.0 H Baso % (Auto) 0.6 0.7 Lymph # (Auto) 2.1 1.9 [place] # (Auto) 0.5 0.6 Eos # (Auto) 0.3 0.4 Baso # (Auto) 0.0 0.1 Abs Immat Gran (auto) 0.02 0.02 Absolute Neuts (auto) 3.7 4.6 Absolute Nucleated RBC 0.000 0.000 Nucleated RBC % (auto) 0.0 0.0 ESR 29 H PT 12.8 INR 1.1 Anion Gap 12 14 Estim Creat Clear Calc 96.6 101.7 Estimated GFR > 60 > 60 POC Glucose 116 H Random Glucose 167 H 157 H Lactic Acid 1.3 Calcium 9.1 8.8 Magnesium 1.7 Total Bilirubin 0.3 Direct Bilirubin 0.1 AST 16 ALT 18 Alkaline Phosphatase 60 Troponin I High Sens 14.6 C-Reactive Protein 2.62 H Total Protein 7.0 Albumin 3.6 06/10/24 07:31 MCV MCH MCHC RDW Plt Count MPV Immature Gran % (Auto) Neut % (Auto) Lymph % (Auto) [place] % (Auto) Eos % (Auto) Baso % (Auto) Lymph # (Auto) [place] # (Auto) Eos # (Auto) Baso # (Auto) Abs Immat Gran (auto) Absolute Neuts (auto) Absolute Nucleated RBC Nucleated RBC % (auto) ESR PT INR Anion Gap Estim Creat Clear Calc Estimated GFR POC Glucose 138 H Random Glucose Lactic Acid Calcium Magnesium Total Bilirubin Direct Bilirubin AST ALT Alkaline Phosphatase Troponin I High Sens C-Reactive Protein Total Protein Albumin Assessment and Plan (1) Left leg cellulitis: Status: Acute Plan This is a 69-year-old female with pertinent history of hypertension, hrh-xyjbage-yvhasxvyx diabetes mellitus, STEVE on CPAP who presents to the emergency department for concerns of left leg infection. 1.Left lower extremity cellulitis with infected wound (failed outpatient therapies) -vancomycin/Zosyn (2) -MRI pending to rule out osteomyelitis -adjust therapies based on cancers 2.Hypertensive urgency -remains poorly control -add back outpatient dosing of hydralazine and adjust as indicated 3.Hvf-cdzyfkf-ltcrwmrrl diabetes mellitus -acceptable control on current therapies -lispro correctional scale -adjust as indicated Lovenox Full code Will require ongoing inpatient hospitalization for IV antibiotics for left lower extremity wound that has failed outpatient therapy; further therapie dependent on forthcoming data from MRI s Quality Stroke Does the patient have a stroke diagnosis?: No VTE Prior VTE?: No VTE Risk Level:: Medical - moderate - high VTE Device Contraindication: Treatment Not Indicated VTE Drug Contraindication: N/A - Med Ordered
[2024-06-10] MEDS: Aspirin Enteric Coated 81 MG TABLET.DR PO (11:30)
[2024-06-10 11:59] LABS: Glucose, Whole Blood 188 mg/dL (60-115)
[2024-06-10] MEDS: gadobutroL 10 ML VIAL IVPUSH (12:50)
--- NOTE | 2024-06-10 13:14 | HE.PHANOTE ---
VANCO DOSE ADJUSTMENT BASED ON SCR DOSE CONTINUED AT 1000 Q 12. NEXT LEVEL 06/11 @ 0600
[2024-06-10 17:11] LABS: Glucose, Whole Blood 121 mg/dL (60-115)
[2024-06-10] MEDS: Enoxaparin Sodium 40 MG/0.4 ML SYRINGE SUBCUT (19:54)
[2024-06-10] MEDS: vancomycin HCL 1,000 MG in 0.9 % Sodium Chloride 250 ML 250 MG IV (19:55)
[2024-06-10 21:17] LABS: Glucose, Whole Blood 155 mg/dL (60-115)
--- NOTE | 2024-06-10 22:46 | PC.NURSE ---
Dr. Terrell made aware of patients hypertensive status. New medication ordered.
[2024-06-10] MEDS: Losartan Potassium 50 MG TABLET PO (22:52)
[2024-06-10] MEDS: hydrALAZINE HCl 20 MG/ML VIAL IVPUSH (22:56)
--- NOTE | 2024-06-10 23:21 | PC.NURSE ---
Dr Terrell notified about hypertension post hydralazine IV. Ordered nitro paste.
[2024-06-10] MEDS: Nitroglycerin 2 % Oint 1 GM Packet 1 INCH TRANSDERMA (23:45)
[2024-06-11] VITALS (8 sets, daily range): BP systolic 150–180; BP diastolic 82–102; PULSE 87–102; RESP 16–18; TEMP 36.1–37.8; O2SAT 94–97
[2024-06-11] MEDS: Piperacillin Sodium/Tazobactam 3.375 GM in 0.9 % Sodium Chloride 50 ML IV ×4 (04:56→21:19)
[2024-06-11] MEDS: Acetaminophen 325 MG TABLET 650 MG PO ×2 (04:59→12:34)
[2024-06-11] MEDS: traMADoL HCL 50 MG TABLET 25 MG PO ×2 (05:02→21:55)
--- NOTE | 2024-06-11 05:20 | PC.NURSE ---
MD aware of AM blood presure = 154/87. Continue to monitor per
[2024-06-11 06:49] LABS: Vancomycin Random 8.9 mcg/mL (15-20)
[2024-06-11 07:04] LABS: Creatinine Clr Calc Pharmacy 96.6; Estimated Glomerular Filt Rate > 60
[2024-06-11 07:41] LABS: Glucose, Whole Blood 165 mg/dL (60-115)
[2024-06-11] MEDS: hydrALAZINE HCl 25 MG TABLET PO ×3 (08:33→19:45)
[2024-06-11] MEDS: Cholecalciferol (Vitamin D3) 25 MCG TABLET PO (08:33)
[2024-06-11] MEDS: Insulin Lispro 100 UNIT/ML 3 ML VIAL SUBCUT ×4 (08:33→20:43)
[2024-06-11] MEDS: Aspirin Enteric Coated 81 MG TABLET.DR PO (08:33)
[2024-06-11] MEDS: 0.9 % Sodium Chloride Flush 3 ML SYRINGE IVFLUSH ×2 (08:37→20:14)
[2024-06-11] MEDS: vancomycin HCL 1,000 MG in 0.9 % Sodium Chloride 250 ML 25 MG IV (08:46)
[2024-06-11] MEDS: Milk of Magnesia 30 ML ORAL.SUSP PO (10:05)
--- NOTE | 2024-06-11 10:13 | PC.NURSE ---
Patient educated to keep wounds clean and dry and to not apply lotion to area. Patient aware bs was 165 before breakfast -only wanted 1 unit of insulin. Medicated per dec for complaints of constipation. Seen by Sarmad
--- NOTE | 2024-06-11 10:30 | MHC.CM.PN ---
Attempted to meet with patient in regards to discharge planning. Nursing care currently being provided. Will attempt to meet again. Continue to monitor for d/c needs.
--- NOTE | 2024-06-11 11:54 | P.PNIM_ITS ---
Subjective Subjective Date of Service: 06/11/24 Interval History: No acute issues overnight Review of Systems Denies chest pain Shortness of breath Denies nausea vomiting diarrhea Denies fever chills Physical Exam 2 Vital Signs: Vital Signs: Last Vital Signs Temp 97.6 F 06/11/24 08:04 Pulse 87 06/11/24 08:04 Resp 18 06/11/24 08:04 BP 178/93 H 06/11/24 08:04 Pulse Ox 94 06/11/24 08:04 O2 Del Method Room Air 06/11/24 08:04 BMI result Body Mass Index 46.6 Const: Other: Awake alert no acute distress Resp: Other: Clear to auscultation bilaterally no rales rhonchi or wheezes Cardio: Other: No S4; positive S1-S2; no S3 murmurs rubs or gallops GI: Other: Soft nontender nondistended normoactive bowel sounds Extrem: Other: No edema bilaterally Objective Data Active Medications Acetaminophen (Acetaminophen 325 Mg Tablet) 650 mg PO Q6H PRN PRN Reason: Pain, Mild (Pain Scale 1-3), fever or headache Last Admin: 06/11/24 04:59 Dose: 650 mg Documented By: JUAN Aspirin (Aspirin Enteric Coated 81 Mg Tablet.Dr) 81 mg PO DAILY [facility] Last Admin: 06/11/24 08:33 Dose: 81 mg Documented By: ALDO Calcium Carbonate (Calcium Carbonate 750 Mg Tab.Chew) 750 mg PO Q4H PRN PRN Reason: Heartburn Enoxaparin Sodium (Enoxaparin Sodium 40 Mg/0.4 Ml Syringe) 40 mg SUBCUT Q24H [facility] Last Admin: 06/10/24 19:54 Dose: 40 mg Documented By: JUAN Glucose (Glucose Gel 15 Gm Gel..Gram.) 15 gm PO Q15M PRN; Protocol PRN Reason: per Hypoglycemia Standing Ord. Hydralazine HCl (Hydralazine Hcl 25 Mg Tablet) 25 mg PO TID [facility]; Protocol Last Admin: 06/11/24 08:33 Dose: 25 mg Documented By: ALDO Piperacillin Sod/Tazobactam (Sod 3.375 gm/ Sodium Chloride) 50 mls @ 100 mls/hr IV Q6H [facility] Last Admin: 06/11/24 10:05 Dose: 200 mls/hr Documented By: ALDO Dextrose (D10) 250 mls @ 750 mls/hr IV Q15M PRN; Protocol PRN Reason: per Hypoglycemia Standing Ord. Vancomycin HCl 1,000 mg/ (Sodium Chloride) 270 mls @ 270 mls/hr IV Q12H [facility] Last Admin: 06/11/24 08:46 Dose: 25 mls/hr Documented By: ALDO Insulin Human Lispro (Insulin Lispro 100 Unit/Ml 3 Ml Vial) 0 unit SUBCUT QIDACHS [facility]; Protocol Last Admin: 06/11/24 08:33 Dose: 1 unit Documented By: ALDO Losartan Potassium (Losartan Potassium 50 Mg Tablet) 50 mg PO DAILY [facility]; Protocol Last Admin: 06/10/24 22:52 Dose: 50 mg Documented By: JUAN Magnesium Hydroxide (Milk Of Magnesia 30 Ml Oral.Susp) 30 ml PO DAILY PRN PRN Reason: Constipation Last Admin: 06/11/24 10:05 Dose: 30 ml Documented By: ALDO Melatonin (Melatonin 3 Mg Tablet) 6 mg PO BEDTIME PRN PRN Reason: Insomnia Last Admin: 06/09/24 22:21 Dose: 6 mg Documented By: TOBIAS Ondansetron HCl (Ondansetron Hcl 4 Mg/2 Ml Vial) 4 mg IVPUSH Q8H PRN PRN Reason: Nausea and Vomiting Pharmacy Consult (Consult Rx Vancomycin Dosing) 1 each MISCELLANE DAILY PRN PRN Reason: Consult order Sodium Chloride (0.9 % Sodium Chloride Flush 3 Ml Syringe) 3 ml IVFLUSH [facility] Last Admin: 06/11/24 08:37 Dose: 3 ml Documented By: ALDO Tramadol HCl (Tramadol Hcl 50 Mg Tablet) 25 mg PO Q6H PRN PRN Reason: Pain, Severe (Pain Scale 7-10) Last Admin: 06/11/24 05:02 Dose: 25 mg Documented By: JUAN Vitamin D (Cholecalciferol (Vitamin D3) 25 Mcg Tablet) 25 mcg PO DAILY [facility] Last Admin: 06/11/24 08:33 Dose: 25 mcg Documented By: ALDO Labs 06/10/24 05:25 06/11/24 06:13 Labs: Laboratory Results - last 24 hr 06/10/24 06/10/24 06/10/24 11:51 17:06 21:10 Estim Creat Clear Calc Estimated GFR POC Glucose 188 H 121 H 155 H Random Vancomycin 06/11/24 06/11/24 06:13 07:33 Estim Creat Clear Calc 96.6 Estimated GFR > 60 POC Glucose 165 H Random Vancomycin 8.9 L Microbiology Microbiology Results: Microbiology 06/09/24 17:05 Blood Culture - Preliminary Blood - Venous No growth after 24 hours. 06/09/24 15:38 Blood Culture - Preliminary Blood - Venous No growth after 24 hours. Assessment and Plan (1) Left leg cellulitis: Status: Acute (2) Hypertension: Status: Acute Plan This is a 69-year-old female with pertinent history of hypertension, lla-wzifmct-haawjqfqu diabetes mellitus, STEVE on CPAP who presents to the emergency department for concerns of left leg infection. 1.Left lower extremity cellulitis with infected wound (failed outpatient therapies) -vancomycin/Zosyn (3) -MRI negative -adjust therapies based on culture -wound care consult; outpatient follow-up 2.Hypertensive urgency -remains poorly control -add back outpatient dosing of hydralazine and adjust as indicated 3.Ayx-cejoqyf-dbfkcmcpk diabetes mellitus -acceptable control on current therapies -lispro correctional scale -adjust as indicated Lovenox Full code Will require ongoing inpatient hospitalization for IV antibiotics for left lower extremity wound that has failed outpatient therapy; further therapie dependent on forthcoming data from MRI s Quality Stroke Does the patient have a stroke diagnosis?: No VTE Prior VTE?: No VTE Risk Level:: Medical - moderate - high VTE Device Contraindication: Treatment Not Indicated VTE Drug Contraindication: N/A - Med Ordered
[2024-06-11 11:56] LABS: Glucose, Whole Blood 170 mg/dL (60-115)
--- NOTE | 2024-06-11 12:29 | PC.NURSE ---
patient stating only wants 1 unit of insulin given
--- NOTE | 2024-06-11 14:00 | P.CDIM_ITS ---
PROVIDER RESPONSE TEXT: To clarify, the appropriate diagnosis supported by the clinical indicators: Diabetic ulcer QUERY TEXT: PHYSICIAN'S DOCUMENTATION REQUEST Date of Query: 06/11/2024 09:42 AM EDT Patient Name: Miladys Cortez Admit Date: 06/09/2024 Dear Jose Hernandez DO, A review of the medical record indicates additional documentation may be needed. Please review below and update the documentation accordingly. Clinical Indicators: Left lower extremity cellulitis with infected wound (failed outpatient therapies) -Vancomycin/Zosyn Based on the above, could you please provide further information regarding the ulcer/wound: Diabetic ulcer Venous stasis ulcer Arterial (ischemic) ulcer Pressure (decubitus) ulcer Please include the stage of the ulcer Traumatic wound Other (explain) Clinically unable to determine (explain) Thank you, Stacy Rodriguez RN Use of terms such as suspected, likely, concern for, or probable (associated with a specific diagnosi s that is being evaluated, monitored, or treated as if it exists) are acceptable and can be coded in the inpatient se tting, when documented at the time of discharge. Please use your independent medical judgment in providing your response. THIS QUERY IS PART OF THE PERMANENT MEDICAL RECORD
--- NOTE | 2024-06-11 14:06 | PC.NURSE ---
Wound care to see patient to apply santyl
[2024-06-11] MEDS: Collagenase Clostridium Hist. 30 GM TUBE 1 APPL TOPICAL ×2 (15:48→20:46)
--- NOTE | 2024-06-11 16:02 | PC.NURSE ---
Patient reports having BM, nitro paste patch removed
--- NOTE | 2024-06-11 16:02 | PC.NURSE ---
IV in right AC removed, painful to patient. Area without swelling
--- NOTE | 2024-06-11 16:30 | HO.WOUND ---
Wound Consult: Initial 69yr old?female admitted to [facility] on 06/09/24 - See progress notes and H&P for detailed history.? Wound consult placed for bilateral lower leg wounds.? Patient agreeable to assessment and photo documentation.? Patient reports the injury is a result of hitting her leg and the wound has worsened over the past few weeks. She reports blood glucose numbers are less than 115 on average, A1C pending per chart review. She reports she attempted to follow up with the outpatient wound clinic but was not successful in getting an appointment. Encouraged patient to have outpt wound clinic followup. Left Lower Medial Leg / Ankle Etiology: ?Diabetic Wound Measurements: 2.5cm x 3cm x 0.4cm Wound Bed: adherent necrotic tissue with moist adherent yellow slough Drainage / Odor: dried to wound edge - foul odor noted Edges: ? unattached [place] wound: Mild erythema, swelling noted Pain: Reports pain Goals of Treatment: ? Santyl for enzymatic debridement and out pt wound clinic followup Etiology: ?Diabetic Wound Measurements: 1cm x 0.8cm x 0.2cm Wound Bed: adherent necrotic tissue Drainage / Odor: dried to wound edge - no odor noted Edges: ? unattached [place] wound: Mild erythema, swelling noted Pain: Reports pain Goals of Treatment: ? Santyl for enzymatic debridement and out pt wound clinic followup Recommendations: 1. Provide adequate and supplemental nutrition.? 2. When applicable maintain blood glucose levels per Providers order. 3. Left Medial Ankle and Right Lateral Ankle - Elevate lower Legs on pillows - Cleanse with normal saline, pat dry. ?Apply skin prep to the immediate [place] wound, apply thick layer of Santyl to entire wound bed, cover with saline moist gauze, secure ABD pad and gauze wrap, change Daily. Recommend follow up out patient Wound Clinic at [address] [place] [id number] and to call for an appointment at time of discharge. [phone].? Re-consult wound care Nurse for wound deterioration or wound changes.
[2024-06-11 16:38] LABS: Glucose, Whole Blood 162 mg/dL (60-115)
--- NOTE | 2024-06-11 17:32 | PC.NURSE ---
Patient stating only wants 1 unit of insulin
--- NOTE | 2024-06-11 18:17 | MHC.CM.ED ---
IMM 06/11. Copy to patient and to medical records. CM met with patient to discuss discharge planning. A&Ox4. Pt states her 2 sons live with her. She is independent. Drives. Uses no DME or services. Pt declines HCP at this time. She is retired. She has a CPAP, but has not needed to use it for the past 6 months. Pt states she is comfortable with her wound care and will see Wound Care outpatient. Pt declines VNA and desires d/c home without services. CM will monitor for discharge planning.
[2024-06-11] MEDS: Enoxaparin Sodium 40 MG/0.4 ML SYRINGE SUBCUT (20:09)
[2024-06-11] MEDS: vancomycin HCL 1,000 MG in 0.9 % Sodium Chloride 250 ML 270 MG IV (20:09)
[2024-06-11 20:31] LABS: Glucose, Whole Blood 185 mg/dL (60-115)
[2024-06-11] MEDS: hydrALAZINE HCl 20 MG/ML VIAL IVPUSH (21:20)
[2024-06-11] MEDS: Docusate Sodium 100 MG CAPSULE 200 MG PO (21:28)
[2024-06-12] MEDS: Piperacillin Sodium/Tazobactam 3.375 GM in 0.9 % Sodium Chloride 50 ML IV ×2 (03:05→10:39)
[2024-06-12 03:17] VITALS: BP 175/87; PULSE 99; RESP 18; TEMP 36.8; O2SAT 96
[2024-06-12 06:42] LABS: Creatinine Clr Calc Pharmacy 79.6; Estimated Glomerular Filt Rate 57
[2024-06-12 06:44] LABS: Vancomycin Random 10.3 mcg/mL (15-20)
[2024-06-12 08:10] VITALS: BP 165/79; PULSE 96; RESP 12; TEMP 37.2; O2SAT 95
[2024-06-12 08:11] LABS: Glucose, Whole Blood 166 mg/dL (60-115)
[2024-06-12] MEDS: hydrALAZINE HCl 25 MG TABLET PO (08:52)
[2024-06-12] MEDS: vancomycin HCL 750 MG in 0.9 % Sodium Chloride 250 ML 265 MG IV (08:52)
[2024-06-12] MEDS: Aspirin Enteric Coated 81 MG TABLET.DR PO (08:52)
[2024-06-12] MEDS: Cholecalciferol (Vitamin D3) 25 MCG TABLET PO (08:52)
[2024-06-12] MEDS: Losartan Potassium 50 MG TABLET PO (08:52)
[2024-06-12] MEDS: 0.9 % Sodium Chloride Flush 3 ML SYRINGE IVFLUSH (08:53)
[2024-06-12] MEDS: traMADoL HCL 50 MG TABLET 25 MG PO (09:06)
[2024-06-12] MEDS: Collagenase Clostridium Hist. 30 GM TUBE 1 APPL TOPICAL (09:08)
--- NOTE | 2024-06-12 10:24 | PM.DS ---
DS: Providers Provider Date of Service: 06/12/24 Date of admission: 06/09/24 19:20 Date of discharge: 06/12/24 Primary care physician: Lillian Velasco MD Consults: 06/11/24 10:38 Consult to Wound Care Routine Reason for consultation: Leg ulcer DS: Diagnosis Discharge Diagnosis (1) Left leg cellulitis: Status: Acute (2) Hypertension: Status: Acute DS: Summary Hospital Course Hospital Course: 69-year-old female with pertinent history of hypertension, afm-kgijlol-xyzsprhxk diabetes mellitus, STEVE on CPAP who presents to the emergency department for concerns of left leg infection. Patient states that about 3 weeks ago she had trauma to her left lower extremity. Since then she has had wound which is nonhealing. It turned red, warm and swollen. Patient was seen in the ER and discharged home on p.o. antibiotics. Patient states she completed her antibiotic course the infection worsened. It is with foul-smelling purulent drainage. Fevers or chills. No nausea, vomiting, chest discomfort, palpitations, shortness of breath, abdominal pain, changes in urinary or bowel habits. No history of similar skin infection in the past. Does endorse that she missed few doses of her antihypertensives Hospital Course Patient admitted to general medical floor started on Zosyn and vancomycin. MRI of the affected extremity failed to demonstrate any evidence of osteomyelitis. She was seen in consultation by wound care nurse (please see her note for details). She had continued to improve since admission and in 48 hours her blood cultures are negative. At this time she is medically acceptable for discharge home with follow up with her PCP and Wound Care Time Attestation Discharge Coordination Time (in mins): 35 Quality: Safe Use of Opioids Does Pt have an Active Cancer Diagnosis on the Problem List?: Yes Opioid Measure Date for [facility] Report: 05/13/24 Opioid Measure Time for [facility] Report: 10:26 Quality: Stroke Does the patient have a stroke diagnosis?: No Physical Exam Vital Signs: Vital Signs: Last Vital Signs Temp 98.9 F 06/12/24 08:10 Pulse 96 06/12/24 08:10 Resp 12 06/12/24 08:10 BP 165/79 H 06/12/24 08:10 Pulse Ox 95 06/12/24 08:10 O2 Del Method Room Air 06/12/24 08:10 BMI result Body Mass Index 46.6 Const: Other: Awake alert no acute distress Resp: Other: Clear to auscultation bilaterally no rales rhonchi or wheezes Cardio: Other: No S4; positive S1-S2; no S3 murmurs rubs or gallops GI: Other: Soft nontender nondistended normoactive bowel sounds Extrem: Other: No edema bilaterally DS: Data Data Completed and Pending Labs on day of discharge: Laboratory Results - last 24 hr 06/11/24 06/11/24 06/11/24 11:49 16:26 20:26 Hold Purple Top Creatinine Estim Creat Clear Calc Estimated GFR POC Glucose 170 H 162 H 185 H Random Vancomycin 06/12/24 06/12/24 06:11 08:02 Hold Purple Top SEE NOTE Creatinine 0.97 Estim Creat Clear Calc 79.6 Estimated GFR 57 POC Glucose 166 H Random Vancomycin 10.3 L Preliminary micro results at discharge 06/09/24 17:05 Blood Culture - Preliminary Blood - Venous No growth after 48 hours. 06/09/24 15:38 Blood Culture - Preliminary Blood - Venous No growth after 48 hours. Discharge Plan Discharge Anticipated Discharge Date/Time: 06/12/24 10:15 Patient Disposition: Home, Self-Care Discharge Diagnosis: Left Leg cellulitis Referrals: Lillian Quiñones MD [Primary Care Provider] - 1 Week Discharge Medications: New tramadol 50 mg Tablet 25 mg PO Q6H PRN (Reason: Pain, Severe (Pain Scale 7-10)) Qty: 30 0RF Santyl 250 unit/gram Ointment 1 appl topical BID Qty: 60 0RF Protocol: Apply to: Apply to: affected area amoxicillin-pot clavulanate 875-125 mg tablet 1 tab PO BID Qty: 14 0RF Continued hydralazine 25 mg tablet 25 mg PO TID Qty: 90 2RF cholecalciferol (vitamin D3) 25 mcg (1,000 unit) Tablet 25 mcg PO DAILY albuterol sulfate 90 mcg/actuation HFA aerosol inhaler 2 puff inhalation Q6H PRN (Reason: Wheezing) aspirin [Adult Aspirin Regimen] 81 mg tablet,delayed release (DR/EC) 81 mg PO DAILY 90 Days Qty: 90 2RF (DME) compr.stocking,knee,long,large Misc See Rx Instructions .ROUTE .MEDSUPPLY Qty: 2 0RF Rx Instructions: As directed Discharge Orders: Discharge Order (Routine); Ordered 06/12/24 Ordered By: Jose Hernandez Diet: Advance to usual diet Activity on Discharge: As tolerated Stand Alone Forms: Patient Portal Discharge page Print Language: Tamazight Activity Restrictions/Additional Instructions: Topical wound Care Recommendations: Left Medial Ankle and Right Lateral Ankle - Elevate lower Legs on pillows - Cleanse with normal saline, pat dry. ?Apply skin prep to the immediate ky wound, apply thick layer of Santyl to entire wound bed, cover with saline moist gauze, secure ABD pad and gauze wrap, change Daily. Recommend follow up out patient Wound Clinic at [address] [place] [id number] and to call for an appointment at time of discharge. [phone].? Care Plan Goals: Augmentin 875 twice daily has been added to your regimen. Tramadol has been given as well. Health Concerns: Follow up with wound care. They will call with appointment Plan of Treatment: Follow up with PCP next available Assessment: See discharge summary
--- NOTE | 2024-06-12 10:43 | MHC.CM.PN ---
IMM 06/11/24 Patient is discharged to home self care. She will resume Wound Clinic appointments. She has arranged for a family member to provide a ride home.
== END 2024-06-12 13:40 | disposition home or self-care (01) | DRG 603 ==
LOC: HO.ED 15:57 → HO.EDOVER 19:24 → HO.S3 06-11 19:21
PROVIDERS: Physician Assistant; Physician Assistant Medical; Admitting Provider Student in an Organized Health Care Education/Training Program; Emergency Provider Emergency Medicine Emergency Medical Services; PCP Internal Medicine; Visit Provider Hospitalist
DX: L03.116 Cellulitis of left lower limb (principal); Z68.42 Body mass index [BMI] 45.0-49.9, adult; L97.829 Non-pressure chronic ulcer of other part of left lower leg with unspecified severity; E11.621 Type 2 diabetes mellitus with foot ulcer; G47.33 Obstructive sleep apnea (adult) (pediatric); E66.01 Morbid (severe) obesity due to excess calories; T46.5X6A Underdosing of other antihypertensive drugs, initial encounter; I16.0 Hypertensive urgency; I10 Essential (primary) hypertension; Z87.891 Personal history of nicotine dependence; Z79.82 Long term (current) use of aspirin; Z79.899 Other long term (current) drug therapy
CPT/HCPCS: 36415; 73590; 73720; 80048; 80076; 80202; 82565; 82947; 83605; 83735; 84484; 85025; 85610; 85652; 86140; 87040; 93005; 93970; 99285; A9585; J0360; J1650; J2543; J3370

== ENCOUNTER → 2024-06-09 19:20 | Outpatient (BNV) | payer SELFPAY | PROVIDERS: Admitting Provider Student in an Organized Health Care Education/Training Program; Emergency Provider Emergency Medicine Emergency Medical Services; PCP Internal Medicine; Visit Provider Student in an Organized Health Care Education/Training Program | DX: L03.116 Cellulitis of left lower limb (principal) | CPT/HCPCS: 99223; 99232; 99239 ==

== ENCOUNTER 2024-06-21 11:52 | Emergency (ER) | payer MEDICARE, SELFPAY ==
--- NOTE | 2024-06-21 12:00 | ED.GENADULT ---
HPI - General Adult General Chief complaint: Skin/Abscess/Foreign Body Stated complaint: Wound check Time Seen by Provider: 06/21/24 20:04 Related Data Home Medications ?Medication ?Instructions ?Recorded ?Confirmed albuterol sulfate 90 mcg/actuation 2 puff inhalation Q6H PRN Wheezing 02/10/21 06/13/24 aerosol inhaler cholecalciferol (vitamin D3) 25 25 mcg PO DAILY 01/11/24 06/13/24 mcg (1,000 unit) tablet Previous Rx's ?Medication ?Instructions ?Recorded aspirin 81 mg tablet,delayed 81 mg PO DAILY 90 days #90 tabs 02/10/21 release (Adult Aspirin Regimen) compr.stocking,knee,long,large #2 ea 03/11/21 hydralazine 25 mg tablet 25 mg PO TID #90 tabs 05/26/24 amoxicillin 875 mg-potassium 1 tab PO BID #14 tabs 06/12/24 clavulanate 125 mg tablet collagenase clostridium histo. 250 1 appl topical BID #60 grams 06/12/24 unit/gram topical ointment (Santyl) tramadol 50 mg tablet 25 mg (1/2 x 50 mg) PO Q6H PRN 06/12/24 Pain, Severe (Pain Scale 7-10) #30 tabs clonidine HCl 0.1 mg tablet 0.1 mg PO Q12H 90 days #180 tabs 06/21/24 doxycycline hyclate 100 mg tablet 100 mg PO Q12H 10 days #20 tabs 06/21/24 doxycycline hyclate 100 mg tablet 100 mg PO Q12H 10 days #20 tabs 06/21/24 Allergies Allergy/AdvReac Type Severity Reaction Status Date / Time amlodipine Allergy Intermediate drowsiness, Verified 06/21/24 12:05 swelling of feet and ankles lisinopril Allergy Intermediate cough Verified 06/21/24 12:05 metformin AdvReac Diarrhea Verified 06/21/24 12:05 Lisinopril-Hydrochlorothiazide AdvReac Intermediate Leg Uncoded 06/09/24 15:06 swelling Metoprolol Tartrate AdvReac Intermediate Leg Uncoded 06/09/24 15:06 swelling PMFSH Past Medical History Medical History (Updated 06/21/24 @ 21:04 by Nathan Lopez MD) Chronic ulcer of left ankle Diabetes Hypertension Abnormal Pap smear of cervix Diabetes mellitus Hypertension Renal calculi Diastasis recti Dyslipidemia associated with type 2 diabetes mellitus Abdominal mass Microalbuminuria Renal calculi Morbid obesity Surgical History Hx of prior ablation treatment Family History Family History Father Seizures Mother Seizures Congenital heart disease in adult Hypotension Maternal Grandfather Leukemia Social History Social History Household Members: Children Housing: Apartment Do you presently have visiting nurse or other home services: No Alcohol intake: current Alcohol intake frequency: does not drink Patient Tobacco Use Status: Former Tobacco user e-Cigarette/Vaping Use: Never Used Second Hand Smoke Exposure: No Advance Directives: No Advance Directives Information Provided: No service: No Current occupational status: employed Current occupational exposures/hazards: No Physical Exam ED Vital Signs: Vital Signs - 24 hr 06/21/24 12:01 Temperature 98.4 F Pulse Rate 98 Respiratory Rate 16 Blood Pressure 194/132 H Pulse Oximetry 97 Oxygen Delivery Method Room Air BMI result Body Mass Index 44.3 Course Course Course Narrative: This is a Rapid Medical Examination (RME) performed by Karis Wright PA-C in triage. Full HPI, ROS, assessment and treatment plan per primary provider in the Main ED. 69 yo female hx of HTN non compliant w/ meds, DM, STEVE on CPAP here for eval of wounds to b/l lower legs. admitted to [facility] ed from 06/09-06/12 for LE cellulitis w/ infected wounds (no evidence of osteo on radiographs). tx w/ IV abx, discharged w/ 7 days of abx and reports completing these. now reports foul smell drainage from wounds with increased warmth. states she was supposed to have f/u w/ Dr. Phillips today however she's having insurance issues. has not followed up with wound center. + hypertensive, does not take her medications as prescribed. asymptomatic Plan: labs, inflammatory markers Medical Decision Making Lab Data 06/21/24 12:33 06/21/24 12:33 Labs: Lab Results 06/21/24 Range/Units 12:33 WBC 6.9 (4.8-10.8) X10*3/uL RBC 4.35 (4.20-5.50) X10*6/uL Hgb 13.1 (12.0-16.0) g/dl Hct 37.8 (37.0-47.0) % MCV 86.9 (80.0-98.0) fL MCH 30.1 (27.0-33.0) pg MCHC 34.7 (31.0-35.0) g/dl RDW 12.1 (11.0-16.0) % Plt Count 273 D (160-400) X10*3/uL MPV 8.9 L (9.4-12.3) fL Immature Gran % (Auto) 0.4 (0.0-0.4) % Neut % (Auto) 56.1 (45-73) % Lymph % (Auto) 31.1 (20-40) % [place] % (Auto) 7.6 (2-11) % Eos % (Auto) 4.1 H (0-4) % Baso % (Auto) 0.7 (0-2) % Lymph # (Auto) 2.1 (1.2-4.9) X10*3/uL [place] # (Auto) 0.5 (0.1-1.2) X10*3/uL Eos # (Auto) 0.3 (0.0-0.4) X10*3/uL Baso # (Auto) 0.1 (0.0-0.2) X10*3/uL Abs Immat Gran (auto) 0.03 (0.00-0.03) X10*3/uL Absolute Neuts (auto) 3.9 (2.0-8.3) x10*3/uL Absolute Nucleated RBC 0.000 (0.0-0.012) X10*3/uL Nucleated RBC % (auto) 0.0 (0.0-0.2) /100WBC ESR 69 H (0-20) MM/HR Sodium 142 (135-145) mmol/L Potassium 3.1 L (3.3-5.1) mmol/L Chloride 102 (96-108) mmol/L Carbon Dioxide 29 (22-29) mmol/L Anion Gap 14 (12-20) BUN 13 (9-16) mg/dL Creatinine 0.89 (0.5-1.4) mg/dL Estim Creat Clear Calc 84.2 Estimated GFR > 60 Random Glucose 141 H (60-115) mg/dL Lactic Acid 1.2 (0.5-2.0) mmol/L Calcium 9.5 D (8.4-10.2) mg/dL Magnesium 1.6 (1.6-2.6) mg/dL Total Bilirubin 0.4 (0.0-1.0) mg/dL AST 17 (5-31) U/L ALT 13 (0-31) U/L Alkaline Phosphatase 60 (39-117) U/L C-Reactive Protein 2.58 H (< or = 0.50) mg/dL Total Protein 7.6 (6.5-8.0) g/dL Albumin 3.8 (3.5-5.0) g/dL Discharge Plan Discharge Clinical Impression: Chronic ulcer of right ankle, Chronic ulcer of left ankle, Essential (primary) hypertension Patient Disposition: Home, Self-Care Additional Instructions: I want you to apply a wet to dry dressing to both ulcers Take a 4 x 4 and wet it with normal saline and then squeezed it until it is almost dry. Place it inside of the ulcer and then cover it with a 4 x 4 gauze. Rapid this with a Kerlix dressing and remove this dressing in 24 hours. After 24 hours gently peel off the dried gauze and the should remove the tissue on the inside of the ulcers and help the healing process. Take doxycycline 100 mg pills, 1 pill every 12 hours for 10 days Please call the wound care clinic again on Monday to see if they can move up your appointment. Tell them that you had to go to the emergency department since the wounds have a foul odor and are infected again Please return to the emergency department if your symptoms get worse or if you develop any symptoms that are concerning to you. I am starting you on clonidine (Catapres) 0.1 mg pills every 12 hours. I am giving you a 90 day supply. I want you to check your blood pressures on Mondays, Wednesdays and Fridays and write them down. Do not worry about any these blood pressures. They can take 2-6 weeks to get your blood pressure under control. You need to take this medication and follow-up with your PCP for further management of your high blood pressure. Prescriptions: New doxycycline hyclate 100 mg tablet 100 mg PO Q12H 10 Days Qty: 20 0RF clonidine HCl 0.1 mg tablet 0.1 mg PO Q12H 90 Days Qty: 180 0RF doxycycline hyclate 100 mg tablet 100 mg PO Q12H 10 Days Qty: 20 0RF No Action hydralazine 25 mg tablet 25 mg PO TID Qty: 90 2RF cholecalciferol (vitamin D3) 25 mcg (1,000 unit) Tablet 25 mcg PO DAILY tramadol 50 mg Tablet 25 mg PO Q6H PRN (Reason: Pain, Severe (Pain Scale 7-10)) Qty: 30 0RF Santyl 250 unit/gram Ointment 1 appl topical BID Qty: 60 0RF Protocol: Apply to: Apply to: affected area amoxicillin-pot clavulanate 875-125 mg tablet 1 tab PO BID Qty: 14 0RF albuterol sulfate 90 mcg/actuation HFA aerosol inhaler 2 puff inhalation Q6H PRN (Reason: Wheezing) aspirin [Adult Aspirin Regimen] 81 mg tablet,delayed release (DR/EC) 81 mg PO DAILY 90 Days Qty: 90 2RF (DME) compr.stocking,knee,long,large Misc See Rx Instructions .ROUTE .MEDSUPPLY Qty: 2 0RF Rx Instructions: As directed Print Language: Sinhala
[2024-06-21 12:01] VITALS: BP 194/132; PULSE 98; RESP 16; TEMP 36.9; O2SAT 97; BMI 44.3
[2024-06-21 12:38] LABS: MANUAL DIFF FLAG NO
[2024-06-21 12:41] LABS: Basophils Absolute Auto 0.1 X10*3/uL (0.0-0.2); Basophils Percent Auto 0.7 % (0-2); Eosinophils Absolute Auto 0.3 X10*3/uL (0.0-0.4); Eosinophils Percent Auto 4.1 % (0-4); Hematocrit 37.8 % (37.0-47.0); Hemoglobin 13.1 g/dl (12.0-16.0); Imm Gran Abs Auto 0.03 X10*3/uL (0.00-0.03); Imm Gran Pct Auto 0.4 % (0.0-0.4); Lymphocytes Absolute Auto 2.1 X10*3/uL (1.2-4.9); Lymphocytes Percent Auto 31.1 % (20-40); Mean Corpuscular HGB Conc 34.7 g/dl (31.0-35.0); Mean Corpuscular Hemoglobin 30.1 pg (27.0-33.0); Mean Corpuscular Volume 86.9 fL (80.0-98.0); Mean Platelet Volume 8.9 fL (9.4-12.3); Monocytes Absolute Auto 0.5 X10*3/uL (0.1-1.2); Monocytes Percent Auto 7.6 % (2-11); Neutrophils Absolute Auto 3.9 x10*3/uL (2.0-8.3); Neutrophils Percent Auto 56.1 % (45-73); Platelet Count 273 X10*3/uL (160-400); Red Blood Count 4.35 X10*6/uL (4.20-5.50); Red Cell Distribution Width 12.1 % (11.0-16.0); White Blood Count 6.9 X10*3/uL (4.8-10.8)
[2024-06-21 12:51] LABS: Lactic Acid 1.2 mmol/L (0.5-2.0)
[2024-06-21 12:55] LABS: Alanine Aminotransferase 13 U/L (0-31); Albumin Level 3.8 g/dL (3.5-5.0); Alkaline Phosphatase 60 U/L (39-117); Anion Gap 14 (12-20); Aspartate Amino Transferase 17 U/L (5-31); Bilirubin Total 0.4 mg/dL (0.0-1.0); Blood Urea Nitrogen 13 mg/dL (9-16); C Reactive Protein 2.58 mg/dL (< or = 0.50); Calcium 9.5 mg/dL (8.4-10.2); Carbon Dioxide 29 mmol/L (22-29); Chloride 102 mmol/L (96-108); Creatinine Clr Calc Pharmacy 84.2; Estimated Glomerular Filt Rate > 60; Glucose Random 141 mg/dL (60-115); Potassium 3.1 mmol/L (3.3-5.1); Sodium 142 mmol/L (135-145); Total Protein 7.6 g/dL (6.5-8.0)
[2024-06-21 13:30] LABS: Erythrocyte Sedimentation Rate 69 MM/HR (0-20)
[2024-06-21 14:01] LABS: Magnesium 1.6 mg/dL (1.6-2.6)
[2024-06-21 20:27] VITALS: BP 195/124; PULSE 83; RESP 16; TEMP 36.6; O2SAT 97
--- NOTE | 2024-06-21 20:39 | MHC.EDTECH ---
THIS PCT JUST ASSUMED CARE OF PATIENT ,VITALS TAKEN ,RN KAVITA IS AWARE OF PT HIGH BP ,,PATIENT WOUND ON BOTH LOWER CALF WAS CLEAN AND DRESS WITH WET TO DRY DRESSING AND WRAP WITH CURLEX .
[2024-06-21 21:22] VITALS: BP 201/130; PULSE 80; RESP 16; TEMP -17.7; TEMP 0; O2SAT 97
[2024-06-21] MEDS: cloNIDine HCL 0.1 MG TABLET PO (21:22)
[2024-06-21] MEDS: Doxycycline Monohydrate 100 MG CAPSULE PO (21:22)
--- NOTE | 2024-06-21 21:28 | PC.NURSE ---
MD aware of elevated BP but stated pt was okay for DC. Per MD, HTN is chronic and pt has been unmedicated.
== END 2024-06-21 21:22 | disposition home or self-care (01) ==
PROVIDERS: Physician Assistant Medical; Emergency Provider Emergency Medicine Emergency Medical Services; PCP Internal Medicine
DX: L97.329 Non-pressure chronic ulcer of left ankle with unspecified severity (principal); L97.319 Non-pressure chronic ulcer of right ankle with unspecified severity; E11.9 Type 2 diabetes mellitus without complications; I10 Essential (primary) hypertension; Z87.891 Personal history of nicotine dependence; Z79.899 Other long term (current) drug therapy; Z79.82 Long term (current) use of aspirin
CPT/HCPCS: 36415; 80053; 83605; 83735; 85025; 85652; 86140; 99283

== ENCOUNTER 2024-07-01 15:54 | Outpatient (AMB) | payer MEDICARE, SELFPAY ==
[2024-07-01 15:56] VITALS: BP 192/114; PULSE 124; O2SAT 90; BMI 42.8
--- NOTE | 2024-07-01 15:56 | A.OFFPC_ITS ---
Vital Signs 07/01/24 15:56 Height 5 ft 7 in Weight 273 lb 5.971 oz BMI 42.8 BP 192/114 H Blood Pressure Location Lt brachial Position Sitting Pulse 124 H Pulse Source Pulse Oximeter Pulse Oximetry (%) 90 L Oxygen Delivery Method Room Air Intake Visit Reasons: [facility] 06/12 Cellulitis FOOT Director Of Safety Required: No Accompanied by: Self / Same As Patient Allergies amlodipine Allergy (Intermediate, Verified 07/01/24 15:57) drowsiness, swelling of feet and ankles lisinopril Allergy (Intermediate, Verified 07/01/24 15:57) cough metformin Adverse Reaction (Verified 07/01/24 15:57) Diarrhea Lisinopril-Hydrochlorothiazide Adverse Reaction (Intermediate, Uncoded 07/01/24 15:57) Leg swelling Metoprolol Tartrate Adverse Reaction (Intermediate, Uncoded 07/01/24 15:57) Leg swelling Medication List - Last Reconciled 07/01/24 by Aliza Clemens PA-C albuterol sulfate 90 mcg/actuation 2 puffs inhalation Q6H PRN aspirin (Adult Aspirin Regimen) 81 mg PO DAILY 90 days cholecalciferol (vitamin D3) 25 mcg PO DAILY clonidine HCl 0.1 mg PO Q12H 90 days collagenase clostridium histo. (Santyl) 1 appl See Protocol topical BID compr.stocking,knee,long,large As directed doxycycline hyclate 100 mg PO Q12H 10 days doxycycline hyclate 100 mg PO Q12H 10 days tramadol 25 mg (1/2 x 50 mg) PO Q6H PRN Tobacco use date assessed: 07/01/24 Fall risk assessment: No Falls in past year Last assessed Fall Risk: 07/01/24 HPI [facility] 06/12 Cellulitis FOOT HPI Details 66-year-old female with past medical his tory of diabetes mellitus, hypertension, dyslipidemia, and morbid obesity last seen by Dr. Knott coming to the office for hospital discharge follow up.? In review of the notes, patient was seen in [facility] ED 06/24/2024 for infected skin ulcer lower extremity.? Patient was started on doxycycline b.i.d. x7 days and advised to do wet-to-dry dressings daily and was started on clonidine 0.5 mg for hypertension.? Patient advised to follow up with wound care. She has been unable to get into the wound clinic and no open scheduled for 6 weeks. She does feel the ulcers have been improving and starting to dry up but does still has significant pain and occasional drainage. He left ankle wound is worse in the right and she does have more drainage from this leg as well. She has been working on the wet-to-dry dressings as advised from the ER. She does feel she is having difficulty with her mobility and is unable to complete most of her ADLs due to the pain. [facility] Medical History (Updated 07/01/24 @ 16:28 by Aliza Clemens PA-C) Chronic ulcer of left ankle Diabetes Hypertension Abnormal Pap smear of cervix Diabetes mellitus Hypertension Renal calculi Diastasis recti Dyslipidemia associated with type 2 diabetes mellitus Abdominal mass Microalbuminuria Renal calculi Morbid obesity Surgical History Hx of prior ablation treatment Family History Father Seizures Mother Seizures Congenital heart disease in adult Hypotension Maternal Grandfather Leukemia Social History Household Members: Children Housing: Apartment Do you presently have visiting nurse or other home services: No Alcohol intake: current Alcohol intake frequency: does not drink Patient Tobacco Use Status: Former Tobacco user Tobacco use type: Cigarette e-Cigarette/Vaping Use: Never Used Second Hand Smoke Exposure: No service: No Current occupational status: employed Current occupational exposures/hazards: No Questionnaire Thrive Questionnaire Date Thrive assessed: 04/07/21 MARLYN-7 AMB Questionnaire MARLYN-7 Date MARLYN - 7 assessed: 05/05/21 Source: Developed by Drs. Cesar Snow, Ela Wiley, Benjamín Chino and colleagues, with an educational rio from [employer]. Review of Systems Const Denies body aches, Denies chills and Denies fever(s) Eyes Reports no additional complaints ENT Reports no additional complaints Card Denies chest pain, Reports leg ulcers, Denies leg edema, Denies lightheadedness and Denies dyspnea Resp Denies dyspnea GI Reports no additional complaints Musc Details: Bilateral leg pain Skin/Breast Reports as per HPI Physical exam (Primary Care) Vital Signs: Last Vital Signs Pulse 124 H 07/01/24 15:56 BP 192/114 H 07/01/24 15:56 Pulse Ox 90 L 07/01/24 15:56 Oxygen Delivery Method Room Air 07/01/24 15:56 BMI result Body Mass Index 42.8 Tobacco/Smoking Status: Tobacco use Status Tobacco use date assessed 07/01/24 07/01/24 16:04 Patient Tobacco Use Status Former Tobacco user 07/01/24 16:04 Tobacco use type Cigarette 07/01/24 16:04 e-Cigarette/Vaping Use Never Used 07/01/24 16:04 Thrive Assessment: Date of Thrive Assessment Date Thrive assessed 04/07/21 07/01/24 16:04 Const General: cooperative, healthy appearing, comfortable and no acute distress Orientation/consciousness: patient oriented x3 HENMT Head: Yes normocephalic Ears: hearing grossly normal bilaterally General nose exam: Normal external nose present Eyes General: appearance normal, both eyes and all related structures Conjunctivae: conjunctivae normal Neck Neck: Yes full ROM and Yes no lymphadenopathy Resp Effort & Inspection: normal respiratory effort Auscultation: clear to auscultation bilaterally, no crackles, no rales, no rhonchi and no wheezes Cardio Rate: regular rate Rhythm: regular rhythm Skin Other: Patient has 2 chronic appearing ulcers on the right lateral ankle and left medial ankle. The left skin ulcer having purulent foul-smelling discharge with no increased erythema and warmth around these ulcers. Neuro General: patient oriented x3 Gait exam (Neuro): Normal gait present Extrem General: Yes normal to inspection, Yes full ROM and No edema Psych Affect: normal affect Attitude: cooperative Insight: Good insight present (Psych) Judgement: Good judgement present (Psych) Assessment and Plan Assessment & Plan (1) Venous stasis ulcer: Code(s): I83.009 - Varicose veins of unspecified lower extremity with ulcer of unspecified site; L97.909 - Non-pressure chronic ulcer of unspecified part of unspecified lower leg with unspecified severity Plan: Advised patient to continue with wet-to-dry dressings and monitoring symptoms to make sure they are improving. I will extend the antibiotics as the wounds are improving but not completely healed and still mildly erythematous and draining. Advised patient to follow up in 1 week's to ensure the ulcers are improving and not worsening. When compared to ER photos there has been very mild improvement in these ulcers and no worsening erythema or drainage. Referral placed for a VNA as patient is having difficulty with activities of daily living and mobility with these bilateral ulcers. Also advised patient to follow up with wound care for earlier appointment. (2) HTN (hypertension): Code(s): I10 - Essential (primary) hypertension Qualifiers: Hypertension type: essential hypertension Qualified Code(s): I10 - Essential (primary) hypertension Plan: Blood pressure elevated today however denies any red flag symptoms. Patient states she is in severe pain and that is the cause of her elevated blood pressure. Patient appears to have chronic uncontrolled elevated blood pressure and we will repeat in 1 week and next appointment and consider additional medical management. Discussed trying flag symptoms of high blood pressure when to present to the ER. Plan This note was constructed using voice recognition software. While every effort has been made to ensure accuracy and forest fire equipment operator, still areas may have been included sometimes these areas may affect the content or meeting of the given symptoms. Total time spent caring for the patient today was 30 minutes. This includes time spent before the visit reviewing the chart, time spent during the visit, and time spent after the visit and documentation. Orders: Referrals [facility]osp[facility] Referral I83.009 - Varicose veins of unspecified lower extremity with ulcer of unspecified site, L97.909 - Non- pressure chronic ulcer of unspecified part of unspecified lower leg with unspecified severity Wound Care Referral I83.009 - Varicose veins of unspecified lower extremity with ulcer of unspecified site, L97.909 - Non-pressure chronic ulcer of unspecified part of unspecified lower leg with unspecified severity Medications: New doxycycline hyclate 100 mg PO BID 7 days 14 caps 0RF ibuprofen 800 mg PO Q8H PRN 20 tabs 1RF pain Coding Level of Care Code Est Pt Level 4 (92433) Diagnoses Venous stasis ulcer I83.009; L97.909 Essential hypertension I10 Hypertension type: essential hypertension
== END 2024-07-01 16:44 | disposition home or self-care (01) ==
PROVIDERS: PCP Internal Medicine
DX: I83.009 Varicose veins of unspecified lower extremity with ulcer of unspecified site (principal); L97.909 Non-pressure chronic ulcer of unspecified part of unspecified lower leg with unspecified severity; I10 Essential (primary) hypertension

== ENCOUNTER → 2024-07-01 15:54 | Outpatient (BNVA) | payer MEDICARE, SELFPAY | PROVIDERS: PCP Internal Medicine | DX: I83.009 Varicose veins of unspecified lower extremity with ulcer of unspecified site (principal); I10 Essential (primary) hypertension; L97.529 Non-pressure chronic ulcer of other part of left foot with unspecified severity; L97.519 Non-pressure chronic ulcer of other part of right foot with unspecified severity | CPT/HCPCS: 99212 ==

== ENCOUNTER 2024-07-08 16:33 | Emergency (ER) | payer SELFPAY ==
--- NOTE | 2024-07-08 17:50 | ED_ITS ---
HPI - General Adult General Chief complaint: General Medical Stated complaint: cellulitis of the L leg Time Seen by Provider: 07/08/24 23:38 Source: patient Mode of arrival: wheelchair Limitations: no limitations History of Present Illness ED Provider: Dr. Rosie Christine HPI narrative: Patient comes to the emergency room complaining of bilateral ankle cellulitis. Patient states that she was discharged from the hospital on August 12, then discharged home. Patient states that over last few weeks, patient has been having worsening shooting pains around the injury site. Patient denies fever or chills Related Data Home Medications ?Medication ?Instructions ?Recorded ?Confirmed albuterol sulfate 90 mcg/actuation 2 puff inhalation Q6H PRN Wheezing 02/10/21 07/01/24 aerosol inhaler cholecalciferol (vitamin D3) 25 25 mcg PO DAILY 01/11/24 07/01/24 mcg (1,000 unit) tablet Previous Rx's ?Medication ?Instructions ?Recorded aspirin 81 mg tablet,delayed 81 mg PO DAILY 90 days #90 tabs 02/10/21 release (Adult Aspirin Regimen) compr.stocking,knee,long,large #2 ea 03/11/21 collagenase clostridium histo. 250 1 appl topical BID #60 grams 06/12/24 unit/gram topical ointment (Santyl) tramadol 50 mg tablet 25 mg (1/2 x 50 mg) PO Q6H PRN 06/12/24 Pain, Severe (Pain Scale 7-10) #30 tabs clonidine HCl 0.1 mg tablet 0.1 mg PO Q12H 90 days #180 tabs 06/21/24 doxycycline hyclate 100 mg tablet 100 mg PO Q12H 10 days #20 tabs 06/21/24 doxycycline hyclate 100 mg tablet 100 mg PO Q12H 10 days #20 tabs 06/21/24 doxycycline hyclate 100 mg capsule 100 mg PO BID 7 days #14 caps 07/01/24 ibuprofen 800 mg tablet 800 mg PO Q8H PRN pain #20 tabs 07/01/24 clonidine HCl 0.2 mg tablet 0.2 mg PO TID 30 days #90 tabs 07/09/24 potassium chloride 20 mEq 20 meq PO DAILY #14 tabs 07/09/24 tablet,extended release Allergies Allergy/AdvReac Type Severity Reaction Status Date / Time amlodipine Allergy Intermediate drowsiness, Verified 07/01/24 15:57 swelling of feet and ankles lisinopril Allergy Intermediate cough Verified 07/01/24 15:57 hydralazine Allergy Swelling Verified 07/08/24 17:54 metformin AdvReac Diarrhea Verified 07/01/24 15:57 Lisinopril-Hydrochlorothiazide AdvReac Intermediate Leg Uncoded 07/01/24 15:57 swelling Metoprolol Tartrate AdvReac Intermediate Leg Uncoded 07/01/24 15:57 swelling Review of Systems 2 Review of Systems: Constitutional : No Weight loss, No Fever, No Chills, No Night Sweats, No Fatigue, No Malaise ENT/Mouth : No Hearing loss, No Ear Pain, No Nasal Congestion, No Sinus Pain, No Hoarseness, No sore throat, No Rhinorrhea, No Swallowing Difficulty Eyes: No Eye Pain, No Swelling, No Redness, No Foreign Body, No Discharge, No Vision Changes Cardiovascular : No Chest Pain, No SOB, No Dyspnea on Exertion, No Orthopnea, No Edema, No Palpitations Respiratory : No Cough, No Sputum, No Wheezing, No Smoke Exposure, No Dyspnea Gastrointestinal : No Nausea, No Vomiting, No Diarrhea, No Constipation, No abdominal Pain, No Hematochezia, No Melena Genitourinary : no irregular bleeding, No Dysuria, No Urinary Frequency, No Hematuria, No Urinary Incontinence, No Urgency, No Flank Pain, No Urinary Flow Changes, No Hesitancy Musculoskeletal : No joint pain, No Myalgias, No Joint Swelling Skin : Complaining of chronic wound ulcers in the legs Neuro : No Weakness, No Numbness, No Paresthesias, No Loss of Consciousness, No Dizziness, No Headache Psych : No Anxiety/Panic, No Depression, No SI/HI/AH/VH, No Social Issues, Heme/Lymph: No Bruising, No Bleeding,No Lymphadenopathy Endocrine : No Polyuria, No Polydipsia, No Temperature Intolerance PMFSH Past Medical History Medical History Chronic ulcer of left ankle Diabetes Hypertension Abnormal Pap smear of cervix Diabetes mellitus Hypertension Renal calculi Diastasis recti Dyslipidemia associated with type 2 diabetes mellitus Abdominal mass Microalbuminuria Renal calculi Morbid obesity Surgical History Hx of prior ablation treatment Family History Family History Father Seizures Mother Seizures Congenital heart disease in adult Hypotension Maternal Grandfather Leukemia Social History Social History Household Members: Children Housing: Apartment Do you presently have visiting nurse or other home services: No Alcohol intake: current Alcohol intake frequency: does not drink Patient Tobacco Use Status: Former Tobacco user Tobacco use type: Cigarette e-Cigarette/Vaping Use: Never Used Second Hand Smoke Exposure: No Advance Directives: No Advance Directives Information Provided: No service: No Current occupational status: employed Current occupational exposures/hazards: No Physical Exam ED Vital Signs: Vital Signs - 24 hr 07/08/24 17:51 07/08/24 22:13 07/09/24 01:52 Temperature 97.2 F 98.3 F Pulse Rate 85 80 Respiratory Rate 20 16 Blood Pressure 152/104 H 212/116 H 205/99 H Pulse Oximetry 100 98 Oxygen Delivery Method Room Air Room Air 07/09/24 02:00 07/09/24 02:12 07/09/24 02:13 Temperature 98.9 F Pulse Rate 89 Respiratory Rate 18 20 Blood Pressure 186/115 H 205/99 H Pulse Oximetry 95 Oxygen Delivery Method Room Air 07/09/24 03:25 07/09/24 04:21 Temperature 98.9 F Pulse Rate 83 70 Respiratory Rate 16 Blood Pressure 205/119 H 155/85 H Pulse Oximetry Oxygen Delivery Method BMI result Body Mass Index 39.5 Const Other: Appearance: Alert. Oriented X3. No acute distress. Eyes: Pupils equal, round and reactive to light. ENT: Pharynx normal. Neck: Normal inspection. Neck supple. No lymph nodes noted. No crepitus CVS: Normal heart rate and rhythm. Pulses normal. Normal S1 and S2 Respiratory: No respiratory distress. Breath sounds normal. No Wheezing. No rales Abdomen: Soft and nontender. No rigidity. No distention. Skin: Skin warm and dry. Normal skin color. Normal skin turgor. See extremities below Extremities: +1 pitting edema bilaterally. Patient has chronic ulcers in both distal lower extremities, see pictures below. There is no drainage, no surrounding cellulitis Neuro: Oriented X 3. No motor deficit. No sensory deficit. Moving all extremities. No slurred speech. CN 2 through 12 grossly intact Psych: calm, cooperative, normal affect Course Course Course Narrative: RME, this is a rapid medical exam performed by Kevin Warner please refer to primary provider for complete H&P- 69-year-old female with past medical history significant for diabetes, hypertension, hyperlipidemia, chronic venous stasis wounds presents for evaluation of leg pain. Patient is being treated with doxycycline for cellulitis of a wound to each of her lower extremities. She states that the redness and discharge appears to be improving however her pain is worsening. She had a recent admission here at the end of May and a recent ER visit on 06/21/2024. Plan for labs including inflammatory markers Medications Administered Discontinued Medications Generic Name Dose Route Start Last Admin Trade Name Freq PRN Reason Stop Dose Admin Clonidine HCl 0.1 mg 07/09/24 01:44 07/09/24 02:12 Clonidine Hcl 0.1 Mg Tablet PO 07/09/24 01:45 0.1 mg ONCE ONE Administration Protocol Labetalol HCl 100 mg 07/09/24 03:17 07/09/24 03:25 Labetalol Hcl 100 Mg Tablet PO 07/09/24 03:18 100 mg ONCE ONE Administration Protocol Morphine Sulfate 4 mg 07/09/24 01:43 07/09/24 02:13 Morphine Sulfate 4 Mg/Ml Cartridge IVPUSH 07/09/24 01:44 4 mg ONCE ONE Administration Protocol Potassium Chloride 60 meq 07/09/24 01:44 07/09/24 02:12 Potassium Chloride Packet 20 Meq Packet PO 07/09/24 01:45 60 meq ONCE ONE Administration Medical Decision Making Medical Decision Making MDM Narrative: My interpretation of labs: Normal white blood cell count. Patient's potassium 2.7. -overall, the wounds do not look infected. Patient would not benefit from a round of antibiotics. Patient needs close follow-up with the wound clinic. I also discussed the above-mentioned with our hospitalist Dr. Terrell for possible admission. However there is no criteria for admission at this time. -patient's potassium is 2.7 patient received p.o. potassium. -here in the emergency room, patient even an additional dose of labetalol 100 mg to help control her blood pressure. -patient's blood pressure today 212/116. Patient takes clonidine 0.1 mg twice a day. Discussed with the patient that she will likely need an increased dose and to make it t.i.d. for better blood pressure control. Differential Diagnosis Differential Diagnoses: The differential diagnosis associated with the presentation includes (Cellulitis, chronic wounds, hypertension, hypokalemia) Admission/Observation Consideration of admission/observation: Escalation of care including admission/observation considered (Observation/admission considered. Discussed with our hospitalist, no need for admission.) Consult Healthcare Provider Management of the patient was discussed with: Hospitalist Lab Data MDM Lab Attestation statement: I reviewed the patient's lab results. 07/08/24 18:44 07/09/24 03:13 Labs: Lab Results 07/08/24 07/09/24 Range/Units 18:44 03:13 WBC 9.7 (4.8-10.8) X10*3/uL RBC 4.38 (4.20-5.50) X10*6/uL Hgb 12.9 (12.0-16.0) g/dl Hct 37.9 (37.0-47.0) % MCV 86.5 (80.0-98.0) fL MCH 29.5 (27.0-33.0) pg MCHC 34.0 (31.0-35.0) g/dl RDW 12.6 (11.0-16.0) % Plt Count 291 (160-400) X10*3/uL MPV 9.6 (9.4-12.3) fL Immature Gran % (Auto) 0.3 (0.0-0.4) % Neut % (Auto) 54.9 (45-73) % Lymph % (Auto) 32.7 (20-40) % Brule % (Auto) 8.8 (2-11) % Eos % (Auto) 2.7 (0-4) % Baso % (Auto) 0.6 (0-2) % Lymph # (Auto) 3.2 (1.2-4.9) X10*3/uL Brule # (Auto) 0.9 (0.1-1.2) X10*3/uL Eos # (Auto) 0.3 (0.0-0.4) X10*3/uL Baso # (Auto) 0.1 (0.0-0.2) X10*3/uL Abs Immat Gran (auto) 0.03 (0.00-0.03) X10*3/uL Absolute Neuts (auto) 5.3 (2.0-8.3) x10*3/uL Absolute Nucleated RBC 0.000 (0.0-0.012) X10*3/uL Nucleated RBC % (auto) 0.0 (0.0-0.2) /100WBC ESR 64 H (0-20) MM/HR Hold Purple Top SEE NOTE Sodium 143 (135-145) mmol/L Potassium 2.7 L* 3.2 L (3.3-5.1) mmol/L Chloride 101 (96-108) mmol/L Carbon Dioxide 29 (22-29) mmol/L Anion Gap 16 (12-20) BUN 19 H (9-16) mg/dL Creatinine 1.10 (0.5-1.4) mg/dL Estim Creat Clear Calc 63.8 Estimated GFR 49 Random Glucose 116 H (60-115) mg/dL Lactic Acid 1.3 (0.5-2.0) mmol/L Calcium 9.9 (8.4-10.2) mg/dL Total Bilirubin 0.3 (0.0-1.0) mg/dL AST 25 (5-31) U/L ALT 13 (0-31) U/L Alkaline Phosphatase 66 (39-117) U/L C-Reactive Protein 5.57 H (< or = 0.50) mg/dL Total Protein 8.1 H (6.5-8.0) g/dL Albumin 3.8 (3.5-5.0) g/dL Lipase 10 (8-78) U/L Critical Care Time Critical Care Time Critical Care Time: Yes Total Critical Care Time: 45 Attestation: I have personally provided critical care time. Time includes review of lab data, radiology results, discussion with consultants, and monitoring for potential decompensation. Intervention performed as documented. Discharge Plan Discharge Clinical Impression: Chronic wound, Hypertension, Hypokalemia Patient Disposition: Home, Self-Care Instructions: Hypokalemia (ED), Hypertension (ED), Chronic Wounds (ED) Additional Instructions: Please follow-up with your primary care physician tomorrow. If you have any worsening or new symptoms, please return to the emergency room or call 911 Prescriptions: New potassium chloride 20 mEq tablet extended release 20 meq PO DAILY Qty: 14 0RF clonidine HCl 0.2 mg tablet 0.2 mg PO TID 30 Days Qty: 90 0RF No Action doxycycline hyclate 100 mg tablet 100 mg PO Q12H 10 Days Qty: 20 0RF clonidine HCl 0.1 mg tablet 0.1 mg PO Q12H 90 Days Qty: 180 0RF doxycycline hyclate 100 mg tablet 100 mg PO Q12H 10 Days Qty: 20 0RF cholecalciferol (vitamin D3) 25 mcg (1,000 unit) Tablet 25 mcg PO DAILY tramadol 50 mg Tablet 25 mg PO Q6H PRN (Reason: Pain, Severe (Pain Scale 7-10)) Qty: 30 0RF Santyl 250 unit/gram Ointment 1 appl topical BID Qty: 60 0RF Protocol: Apply to: Apply to: affected area albuterol sulfate 90 mcg/actuation HFA aerosol inhaler 2 puff inhalation Q6H PRN (Reason: Wheezing) aspirin [Adult Aspirin Regimen] 81 mg tablet,delayed release (DR/EC) 81 mg PO DAILY 90 Days Qty: 90 2RF (DME) compr.stocking,knee,long,large Misc See Rx Instructions .ROUTE .MEDSUPPLY Qty: 2 0RF Rx Instructions: As directed doxycycline hyclate 100 mg capsule 100 mg PO BID 7 Days Qty: 14 0RF ibuprofen 800 mg tablet 800 mg PO Q8H PRN (Reason: pain) Qty: 20 1RF Referrals: Meron Johnson MD [Physician] - 2 days Print Language: Greenlandic
[2024-07-08 17:51] VITALS: BP 152/104; PULSE 85; RESP 20; TEMP 36.2; O2SAT 100; BMI 39.5
[2024-07-08 18:53] LABS: MANUAL DIFF FLAG NO
[2024-07-08 19:04] LABS: Lactic Acid 1.3 mmol/L (0.5-2.0)
[2024-07-08 19:12] LABS: Alanine Aminotransferase 13 U/L (0-31); Albumin Level 3.8 g/dL (3.5-5.0); Alkaline Phosphatase 66 U/L (39-117); Anion Gap 16 (12-20); Aspartate Amino Transferase 25 U/L (5-31); Bilirubin Total 0.3 mg/dL (0.0-1.0); Blood Urea Nitrogen 19 mg/dL (9-16); C Reactive Protein 5.57 mg/dL (< or = 0.50); Calcium 9.9 mg/dL (8.4-10.2); Carbon Dioxide 29 mmol/L (22-29); Chloride 101 mmol/L (96-108); Creatinine Clr Calc Pharmacy 63.8; Estimated Glomerular Filt Rate 49; Glucose Random 116 mg/dL (60-115); Lipase 10 U/L (8-78); Potassium 2.7 mmol/L (3.3-5.1); Sodium 143 mmol/L (135-145); Total Protein 8.1 g/dL (6.5-8.0)
[2024-07-08 19:15] LABS: Basophils Absolute Auto 0.1 X10*3/uL (0.0-0.2); Basophils Percent Auto 0.6 % (0-2); Eosinophils Absolute Auto 0.3 X10*3/uL (0.0-0.4); Eosinophils Percent Auto 2.7 % (0-4); Hematocrit 37.9 % (37.0-47.0); Hemoglobin 12.9 g/dl (12.0-16.0); Imm Gran Abs Auto 0.03 X10*3/uL (0.00-0.03); Imm Gran Pct Auto 0.3 % (0.0-0.4); Lymphocytes Absolute Auto 3.2 X10*3/uL (1.2-4.9); Lymphocytes Percent Auto 32.7 % (20-40); Mean Corpuscular Hemoglobin 29.5 pg (27.0-33.0); Mean Corpuscular Volume 86.5 fL (80.0-98.0); Mean Platelet Volume 9.6 fL (9.4-12.3); Monocytes Absolute Auto 0.9 X10*3/uL (0.1-1.2); Monocytes Percent Auto 8.8 % (2-11); Neutrophils Absolute Auto 5.3 x10*3/uL (2.0-8.3); Neutrophils Percent Auto 54.9 % (45-73); Platelet Count 291 X10*3/uL (160-400); Red Blood Count 4.38 X10*6/uL (4.20-5.50); Red Cell Distribution Width 12.6 % (11.0-16.0); White Blood Count 9.7 X10*3/uL (4.8-10.8)
[2024-07-08 19:27] LABS: Erythrocyte Sedimentation Rate 64 MM/HR (0-20)
[2024-07-08 22:13] VITALS: BP 212/116; PULSE 80; RESP 16; TEMP 36.8; O2SAT 98
[2024-07-09] VITALS (7 sets, daily range): BP systolic 155–205; BP diastolic 85–119; PULSE 70–89; RESP 16–20; TEMP 37.2; O2SAT 95–97
--- NOTE | 2024-07-09 01:52 | PC.NURSE ---
Patient up, out of bed, ambulating with walker to bathroom. Alert & oriented. Dr. Christine evaluated the patient. Plan to medicate for pain. Care ongoing.
[2024-07-09] MEDS: cloNIDine HCL 0.1 MG TABLET PO (02:12)
[2024-07-09] MEDS: Potassium Chloride Packet 20 MEQ PACKET 60 MEQ PO (02:12)
[2024-07-09] MEDS: Morphine Sulfate 4 MG/ML CARTRIDGE IVPUSH (02:13)
[2024-07-09] MEDS: Labetalol HCL 100 MG TABLET PO (03:25)
[2024-07-09 03:30] LABS: Potassium 3.2 mmol/L (3.3-5.1)
== END 2024-07-09 05:28 | disposition home or self-care (01) ==
PROVIDERS: Physician Assistant; Emergency Provider Emergency Medicine; PCP Internal Medicine
DX: S81.802D Unspecified open wound, left lower leg, subsequent encounter (principal); X58.XXXD Exposure to other specified factors, subsequent encounter; E87.6 Hypokalemia; I10 Essential (primary) hypertension; R60.0 Localized edema; E11.9 Type 2 diabetes mellitus without complications; E78.5 Hyperlipidemia, unspecified; Z79.4 Long term (current) use of insulin; Z79.82 Long term (current) use of aspirin
CPT/HCPCS: 36415; 80053; 83605; 83690; 84132; 85025; 85652; 86140; 87040; 96374; 99284; J2270

== ENCOUNTER 2024-07-10 13:57 | Outpatient (AMB) | payer SELFPAY ==
[2024-07-10 14:00] VITALS: BP 150/98; PULSE 97; O2SAT 97; BMI 42.8
--- NOTE | 2024-07-10 14:00 | A.OFFPC_ITS ---
Vital Signs 07/10/24 14:00 Height 5 ft 7 in Weight 273 lb BMI 42.8 BP 150/98 H Blood Pressure Location Lt brachial Position Sitting Pulse 97 Pulse Source Pulse Oximeter Pulse Oximetry (%) 97 Oxygen Delivery Method Room Air Intake Visit Reasons: f/u ulcers Allergies amlodipine Allergy (Intermediate, Verified 07/01/24 15:57) drowsiness, swelling of feet and ankles lisinopril Allergy (Intermediate, Verified 07/01/24 15:57) cough hydralazine Allergy (Verified 07/08/24 17:54) Swelling metformin Adverse Reaction (Verified 07/01/24 15:57) Diarrhea Lisinopril-Hydrochlorothiazide Adverse Reaction (Intermediate, Uncoded 07/01/24 15:57) Leg swelling Metoprolol Tartrate Adverse Reaction (Intermediate, Uncoded 07/01/24 15:57) Leg swelling Medication List - Last Reconciled 07/10/24 by Aliza Clemens PA-C albuterol sulfate 90 mcg/actuation 2 puffs inhalation Q6H PRN aspirin (Adult Aspirin Regimen) 81 mg PO DAILY 90 days cholecalciferol (vitamin D3) 25 mcg PO DAILY clonidine HCl 0.1 mg PO Q12H 90 days clonidine HCl 0.2 mg PO TID 30 days collagenase clostridium histo. (Santyl) 1 appl See Protocol topical BID compr.stocking,knee,long,large As directed doxycycline hyclate 100 mg PO Q12H 10 days doxycycline hyclate 100 mg PO Q12H 10 days doxycycline hyclate 100 mg PO BID 7 days doxycycline monohydrate 100 mg PO BID ibuprofen 800 mg PO Q8H PRN potassium chloride ER 20 mEq PO DAILY tramadol 25 mg (1/2 x 50 mg) PO Q6H PRN tramadol 50 mg PO BID PRN Tobacco use date assessed: 07/01/24 Fall risk assessment: No Falls in past year HPI f/u ulcers HPI Details 66-year-old female with past medical his tory of diabetes mellitus, hypertension, dyslipidemia, and morbid obesity last seen June in for follow up on ulcers. On review of the notes, patient was seen in [facility] ED 07/08/2024 for chronic ulcers which were not infected at that time and advised to follow up with wound care. Blood pressure also significantly elevated and clonidine was increased to 3 times daily. Patient states she went to [facility] 07/07/2024 for management of her chronic ulcers. Wound culture was taken and antibiotic changed for better coverage and she has not picked up the medication yet. She rescheduled with [facility] as she had prior commitments on Monday. However she does mentioned she was able to get into wound care in [place] with the 1st appointment this Monday. [facility] Medical History Chronic ulcer of left ankle Diabetes Hypertension Abnormal Pap smear of cervix Diabetes mellitus Hypertension Renal calculi Diastasis recti Dyslipidemia associated with type 2 diabetes mellitus Abdominal mass Microalbuminuria Renal calculi Morbid obesity Surgical History Hx of prior ablation treatment Family History Father Seizures Mother Seizures Congenital heart disease in adult Hypotension Maternal Grandfather Leukemia Social History Household Members: Children Housing: Apartment Do you presently have visiting nurse or other home services: No Alcohol intake: current Alcohol intake frequency: a few times a month Alcohol type: wine Patient Tobacco Use Status: Former Tobacco user Tobacco use type: Cigarette e-Cigarette/Vaping Use: Never Used Second Hand Smoke Exposure: No Substance Use Type: Other service: No Current occupational status: employed Current occupational exposures/hazards: No Questionnaire Thrive Questionnaire Date Thrive assessed: 04/07/21 AUDIT C Alcohol Use Questionnaire (AUDIT-C) 1. How often do you have a drink containing alcohol?: Monthly or less 2. How many drinks containing alcohol do you have on a typical day when you are drinking?: 1 or 2 3. How often do you have six or more drinks on one occasion?: Never Total Score: 1 MARLYN-7 AMB Questionnaire MARLYN-7 Date MARLYN - 7 assessed: 05/05/21 Source: Developed by Drs. Cesar Snow, Ela Wiley, Benjamín Chino and colleagues, with an educational rio from [employer] Review of Systems Const Denies body aches, Denies chills and Denies fever(s) Eyes Reports no additional complaints ENT Reports no additional complaints Card Details: Leg swelling significantly improved since last visit Denies chest pain, Denies leg edema and Denies dyspnea Resp Denies dyspnea GI Reports no additional complaints Reports no additional complaints Skin/Breast Reports as per HPI Physical exam (Primary Care) Tobacco/Smoking Status: Tobacco use Status Tobacco use date assessed 07/01/24 07/01/24 16:04 Patient Tobacco Use Status Former Tobacco user 07/09/24 04:25 Tobacco use type Cigarette 07/01/24 16:04 e-Cigarette/Vaping Use Never Used 07/01/24 16:04 Thrive Assessment: Date of Thrive Assessment Date Thrive assessed 04/07/21 07/01/24 16:04 Const General: cooperative, healthy appearing, comfortable and no acute distress Orientation/consciousness: patient oriented x3 HENMT Head: Yes normocephalic Ears: hearing grossly normal bilaterally General nose exam: Normal external nose present Eyes General: appearance normal, both eyes and all related structures Conjunctivae: conjunctivae normal Neck Neck: Yes full ROM and Yes no lymphadenopathy Resp Effort & Inspection: normal respiratory effort Auscultation: clear to auscultation bilaterally, no crackles, no rales, no rhonchi and no wheezes Cardio Rate: regular rate Rhythm: regular rhythm Skin General skin exam: no rashes or lesions noted Neuro General: patient oriented x3 Gait exam (Neuro): Normal gait present Extrem General: Yes normal to inspection, Yes full ROM and No edema Psych Affect: normal affect Attitude: cooperative Insight: Good insight present (Psych) Judgement: Good judgement present (Psych) Coding Level of Care Code Est Pt Level 3 (40554) Diagnoses Venous stasis ulcer I83.009; L97.909 Essential hypertension I10 Hypertension type: essential hypertension Type 2 diabetes mellitus without complication, without long-term current use of insulin E11.9 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 Also asked patient to verify her appointment on Monday and reach out if she was unable to get in with wound care. If patient is able to have wound care provided we will follow up in 1 month. Advised patient to follow up sooner if she is unable to get wound care. (2) HTN (hypertension): Code(s): I10 - Essential (primary) hypertension Category: Medical Qualifiers: Hypertension type: essential hypertension Qualified Code(s): I10 - Essential (primary) hypertension Plan: Blood pressure elevated today in the office and clonidine was switched to 0.1 mg t.i.d. while in the ER. She has not yet taken this dose and we will follow up in 1 month for re-evaluation. (3) DMII (diabetes mellitus, type 2): Code(s): E11.9 - Type 2 diabetes mellitus without complications Category: Medical Qualifiers: Diabetes mellitus [facility] insulin use: without [facility] use Diabetes mellitus complication status: without complication Qualified Code(s): E11.9 - Type 2 diabetes mellitus without complications Plan: Decrease the amount of carbohydrates such as pasta, bread, rice, and potatoes and limit the amount of sweets. Although fruits are generally healthy they should be eaten in moderation as they are still high in sugar. Hemoglobin A1c goal of less than 7%. We will follow up in 1 month for A1c and further follow up. Plan This note was constructed using voice recognition software. While every effort has been made to ensure accuracy and pipeline inspector, still areas may have been included sometimes these areas may affect the content or meeting of the given symptoms. Total time spent caring for the patient today was 30 minutes. This includes time spent before the visit reviewing the chart, time spent during the visit, and time spent after the visit and documentation. Medications: New methocarbamol 500 mg PO TID PRN 20 tabs 0RF pain Refilled ibuprofen 800 mg PO Q8H PRN 20 tabs 1RF pain
== END 2024-07-10 14:33 | disposition home or self-care (01) ==
PROVIDERS: PCP Internal Medicine
DX: I83.009 Varicose veins of unspecified lower extremity with ulcer of unspecified site (principal); L97.909 Non-pressure chronic ulcer of unspecified part of unspecified lower leg with unspecified severity; I10 Essential (primary) hypertension; E11.9 Type 2 diabetes mellitus without complications

== ENCOUNTER → 2024-07-10 13:57 | Outpatient (BNVA) | payer MEDICARE, SELFPAY | PROVIDERS: PCP Internal Medicine | DX: I10 Essential (primary) hypertension (principal); E11.9 Type 2 diabetes mellitus without complications; Z86.718 Personal history of other venous thrombosis and embolism | CPT/HCPCS: 99212 ==

== ENCOUNTER 2024-07-12 06:34 | Inpatient (IN) | payer MEDICARE, SELFPAY ==
[2024-07-12] VITALS (13 sets, daily range): BP systolic 173–209; BP diastolic 83–177; PULSE 62–88; RESP 16–20; TEMP 36.1–37.1; O2SAT 95–98; BMI 42.6
--- NOTE | 2024-07-12 07:33 | ED_ITS ---
HPI - Wound/Laceration General Chief Complaint: Wound/Laceration Stated Complaint: burning back of calves - cellulitis ? Time Seen by Provider: 07/12/24 07:17 Source: patient Mode of arrival: ambulatory Limitations: no limitations History of Present Illness ED Provider: Lena JONES narrative: 69yo F PMHx HTN, T2DM, dyslipidemia, obesity, venous stasis ulcer presents for evaluation of b/l lower extremity wounds. The wound on her left ankle is about a month old, she has been seen 3-4 times in this ED over the past month for evaluation and treatment as it continues to worsen. The right-sided wound is 2-3 weeks old and has been progressively worsening as well. The left wound is more painful than the right. Patient endorses foul-smelling discharge from the wounds, warmth, swelling, pain. Patient denies fevers, numbness, tingling Related Data Home Medications ?Medication ?Instructions ?Recorded ?Confirmed albuterol sulfate 90 mcg/actuation 2 puff inhalation Q6H PRN Wheezing 02/10/21 07/10/24 aerosol inhaler cholecalciferol (vitamin D3) 25 25 mcg PO DAILY 01/11/24 07/10/24 mcg (1,000 unit) tablet cefadroxil 500 mg capsule 1,000 mg PO BID 07/10/24 07/10/24 doxycycline monohydrate 100 mg 100 mg PO BID 07/10/24 07/10/24 capsule levofloxacin 250 mg tablet 250 mg PO DAILY 07/10/24 07/10/24 Previous Rx's ?Medication ?Instructions ?Recorded aspirin 81 mg tablet,delayed 81 mg PO DAILY 90 days #90 tabs 02/10/21 release (Adult Aspirin Regimen) compr.stocking,knee,long,large #2 ea 03/11/21 collagenase clostridium histo. 250 1 appl topical BID #60 grams 06/12/24 unit/gram topical ointment (Santyl) tramadol 50 mg tablet 25 mg (1/2 x 50 mg) PO Q6H PRN 06/12/24 Pain, Severe (Pain Scale 7-10) #30 tabs clonidine HCl 0.1 mg tablet 0.1 mg PO Q12H 90 days #180 tabs 06/21/24 doxycycline hyclate 100 mg tablet 100 mg PO Q12H 10 days #20 tabs 06/21/24 doxycycline hyclate 100 mg tablet 100 mg PO Q12H 10 days #20 tabs 06/21/24 doxycycline hyclate 100 mg capsule 100 mg PO BID 7 days #14 caps 07/01/24 clonidine HCl 0.2 mg tablet 0.2 mg PO TID 30 days #90 tabs 07/09/24 potassium chloride 20 mEq 20 meq PO DAILY #14 tabs 07/09/24 tablet,extended release tramadol 50 mg tablet 50 mg PO BID PRN pain #7 tabs 07/09/24 ibuprofen 800 mg tablet 800 mg PO Q8H PRN pain #20 tabs 07/10/24 methocarbamol 500 mg tablet 500 mg PO TID PRN pain #20 tabs 07/10/24 Allergies Allergy/AdvReac Type Severity Reaction Status Date / Time amlodipine Allergy Intermediate drowsiness, Verified 07/12/24 06:46 swelling of feet and ankles lisinopril Allergy Intermediate cough Verified 07/12/24 06:46 hydralazine Allergy Swelling Verified 07/12/24 06:46 metformin AdvReac Diarrhea Verified 07/12/24 06:46 Lisinopril-Hydrochlorothiazide AdvReac Intermediate Leg Uncoded 07/01/24 15:57 swelling Metoprolol Tartrate AdvReac Intermediate Leg Uncoded 07/01/24 15:57 swelling Review of Systems 2 Review of Systems: Yes all other systems are reviewed and are negative [facility] Past Medical History Attestation statement: The following information was validated with the patient. Source: old records reviewed and nursing notes reviewed Medical History Chronic ulcer of left ankle Diabetes Hypertension Abnormal Pap smear of cervix Diabetes mellitus Hypertension Renal calculi Diastasis recti Dyslipidemia associated with type 2 diabetes mellitus Abdominal mass Microalbuminuria Renal calculi Morbid obesity Surgical History Hx of prior ablation treatment Family History Family History Father Seizures Mother Seizures Congenital heart disease in adult Hypotension Maternal Grandfather Leukemia Social History Social History Household Members: Children Housing: Apartment Do you presently have visiting nurse or other home services: No Alcohol intake: current Alcohol intake frequency: holidays/special occasions only Alcohol type: wine Patient Tobacco Use Status: Former Tobacco user Tobacco use type: Cigarette e-Cigarette/Vaping Use: Never Used Second Hand Smoke Exposure: No Use of substances other than those prescribed or required for medical reasons: No Substance Use Type: Other Advance Directives: No Advance Directives Information Provided: Yes Do you have a plan to hurt others: No Plan service: No Current occupational status: employed Current occupational exposures/hazards: No Physical Exam 2 Vital Signs: Vital Signs: Last Vital Signs Temp 98.2 F 07/12/24 10:23 Pulse 77 07/12/24 10:23 Resp 16 07/12/24 10:23 BP 209/177 H 07/12/24 10:23 Pulse Ox 98 07/12/24 10:23 O2 Del Method Room Air 07/12/24 10:23 BMI result Body Mass Index 42.6 Hypertensive Appearance: Alert.? Oriented X3.?Nontoxic-appearing Head: Normocephalic, atraumatic CVS: Normal heart rate and rhythm.? Pulses normal.? Respiratory: No respiratory distress.? Breath sounds normal.? Abdomen: Soft and nontender.? Skin: Large, round ~4-5cm diameter ulcer to L calf/ankle with moderate purulent drainage and warmth, extremely tender to touch. Moderate ~3cm wound to R calf/ankle with small volume bloody, purulent discharge. Extremities: 2+ pitting edema to LLE, 1+ pitting edema to RLE. DPs and PTs 2+ b/l. Sensation intact distal to wounds b/l Neuro: Oriented X 3 Course Reevaluation(s) Reevaluation #1: CBC unremarkable. Chemistry with low potassium, was given oral potassium. CRP elevated at baseline not significantly different. Wounds appear worse -- atbx ordered HTN still high after repeating home dose meds. - IV meds ordered. Patient feels unwell overall. Plan- hospital admisison Time: 12:29 Medications Administered Discontinued Medications Generic Name Dose Route Start Last Admin Trade Name Freq PRN Reason Stop Dose Admin Clonidine HCl 0.1 mg 07/12/24 07:18 07/12/24 08:12 Clonidine Hcl 0.1 Mg Tablet PO 07/12/24 07:19 0.1 mg ONCE ONE Administration Protocol Clonidine HCl 0.1 mg 07/12/24 09:45 07/12/24 10:01 Clonidine Hcl 0.1 Mg Tablet PO 07/12/24 09:46 0.1 mg ONCE ONE Administration Protocol Gabapentin 300 mg 07/12/24 10:55 07/12/24 11:37 Gabapentin 300 Mg Capsule PO 07/12/24 10:56 300 mg ONCE ONE Administration Hydromorphone HCl 1 mg 07/12/24 09:45 07/12/24 10:01 Hydromorphone Hcl 1 Mg/Ml Syringe IVPUSH 07/12/24 09:46 1 mg ONCE ONE Administration Protocol Ceftriaxone Sodium 1 gm/ 50 mls @ 100 mls/hr 07/12/24 07:35 07/12/24 09:31 Sodium Chloride IV 07/12/24 08:04 Infused ONCE ONE Infusion Morphine Sulfate 4 mg 07/12/24 07:35 07/12/24 08:12 Morphine Sulfate 4 Mg/Ml Cartridge IVPUSH 07/12/24 07:36 4 mg ONCE ONE Administration Protocol Potassium Chloride 40 meq 07/12/24 09:17 07/12/24 09:42 Potassium Chloride Packet 20 Meq Packet PO 07/12/24 09:18 40 meq ONCE ONE Administration Medical Decision Making Medical Decision Making MDM Narrative: 69 yo F presenting for reevaluation of b/l LE wounds PE: Nontoxic appearing. Large, round ~4-5cm diameter ulcer to L calf/ankle with moderate purulent drainage and warmth, extremely tender to touch. Moderate ~3cm wound to R calf/ankle with small volume bloody, purulent discharge. 2+ pitting edema to LLE, 1+ pitting edema to RLE. DPs and PTs 2+ b/l. Sensation intact distal to wounds b/l Hx and PE concerning for cellulitis vs diabetic ulcer. Less likely, septicemia, osteomyelitis, threat to limb, necrotizing fasciitis Plan: blood cultures, labs, pain control, antibiotics Differential Diagnosis Differential Diagnoses: The differential diagnosis associated with the presentation includes (Hx and PE concerning for cellulitis vs diabetic ulcer. Less likely, septicemia, osteomyelitis, threat to limb, necrotizing fasciitis ) Admission/Observation Consideration of admission/observation: Escalation of care including admission/observation considered Possible Lab Data 07/12/24 08:07 07/12/24 08:07 Labs: Lab Results 07/12/24 Range/Units 08:07 WBC 7.1 (4.8-10.8) X10*3/uL RBC 4.08 L (4.20-5.50) X10*6/uL Hgb 12.0 (12.0-16.0) g/dl Hct 35.8 L (37.0-47.0) % MCV 87.7 (80.0-98.0) fL MCH 29.4 (27.0-33.0) pg MCHC 33.5 (31.0-35.0) g/dl RDW 12.9 (11.0-16.0) % Plt Count 257 (160-400) X10*3/uL MPV 9.4 (9.4-12.3) fL Immature Gran % (Auto) 0.4 (0.0-0.4) % Neut % (Auto) 62.9 (45-73) % Lymph % (Auto) 25.4 (20-40) % [place] % (Auto) 8.1 (2-11) % Eos % (Auto) 2.8 (0-4) % Baso % (Auto) 0.4 (0-2) % Lymph # (Auto) 1.8 (1.2-4.9) X10*3/uL [place] # (Auto) 0.6 (0.1-1.2) X10*3/uL Eos # (Auto) 0.2 (0.0-0.4) X10*3/uL Baso # (Auto) 0.0 (0.0-0.2) X10*3/uL Abs Immat Gran (auto) 0.03 (0.00-0.03) X10*3/uL Absolute Neuts (auto) 4.4 (2.0-8.3) x10*3/uL Absolute Nucleated RBC 0.000 (0.0-0.012) X10*3/uL Nucleated RBC % (auto) 0.0 (0.0-0.2) /100WBC ESR 67 H (0-20) MM/HR Sodium 144 (135-145) mmol/L Potassium 3.0 L (3.3-5.1) mmol/L Chloride 105 (96-108) mmol/L Carbon Dioxide 29 (22-29) mmol/L Anion Gap 13 (12-20) BUN 14 (9-16) mg/dL Creatinine 0.85 (0.5-1.4) mg/dL Estim Creat Clear Calc 86.3 Estimated GFR > 60 Random Glucose 139 H (60-115) mg/dL Lactic Acid 0.9 (0.5-2.0) mmol/L Calcium 9.5 (8.4-10.2) mg/dL Magnesium 1.6 (1.6-2.6) mg/dL Total Bilirubin 0.3 (0.0-1.0) mg/dL AST 18 (5-31) U/L ALT 12 (0-31) U/L Alkaline Phosphatase 69 (39-117) U/L C-Reactive Protein 6.25 H (< or = 0.50) mg/dL Total Protein 7.6 (6.5-8.0) g/dL Albumin 3.5 (3.5-5.0) g/dL Critical Care Time Critical Care Time Critical Care Time: Yes Total Critical Care Time: 35 Attestation: I attest to this time spent taking care of the patient, obtaining history, physical, reviewing labs, imaging, treatment of patients condition +/- specialist/hospitalist consult Discharge Plan Discharge Clinical Impression: Wound of lower extremity, Hypertension Patient Disposition: Admitted As Inpatient Prescriptions: No Action doxycycline hyclate 100 mg tablet 100 mg PO Q12H 10 Days Qty: 20 0RF clonidine HCl 0.1 mg tablet 0.1 mg PO Q12H 90 Days Qty: 180 0RF doxycycline hyclate 100 mg tablet 100 mg PO Q12H 10 Days Qty: 20 0RF potassium chloride 20 mEq tablet extended release 20 meq PO DAILY Qty: 14 0RF clonidine HCl 0.2 mg tablet 0.2 mg PO TID 30 Days Qty: 90 0RF tramadol 50 mg tablet 50 mg PO BID PRN (Reason: pain) Qty: 7 0RF cholecalciferol (vitamin D3) 25 mcg (1,000 unit) Tablet 25 mcg PO DAILY tramadol 50 mg Tablet 25 mg PO Q6H PRN (Reason: Pain, Severe (Pain Scale 7-10)) Qty: 30 0RF Santyl 250 unit/gram Ointment 1 appl topical BID Qty: 60 0RF Protocol: Apply to: Apply to: affected area albuterol sulfate 90 mcg/actuation HFA aerosol inhaler 2 puff inhalation Q6H PRN (Reason: Wheezing) aspirin [Adult Aspirin Regimen] 81 mg tablet,delayed release (DR/EC) 81 mg PO DAILY 90 Days Qty: 90 2RF (DME) compr.stocking,knee,long,large Misc See Rx Instructions .ROUTE .MEDSUPPLY Qty: 2 0RF Rx Instructions: As directed doxycycline hyclate 100 mg capsule 100 mg PO BID 7 Days Qty: 14 0RF doxycycline monohydrate 100 mg capsule 100 mg PO BID ibuprofen 800 mg tablet 800 mg PO Q8H PRN (Reason: pain) Qty: 20 1RF methocarbamol 500 mg tablet 500 mg PO TID PRN (Reason: pain) Qty: 20 0RF cefadroxil 500 mg capsule 1,000 mg PO BID levofloxacin 250 mg tablet 250 mg PO DAILY Print Language: Icelandic
[2024-07-12] MEDS: cefTRIAXone sodium 1 GM in 0.9 % Sodium Chloride 50 ML IV (08:11)
[2024-07-12] MEDS: Morphine Sulfate 4 MG/ML CARTRIDGE IVPUSH (08:12)
[2024-07-12] MEDS: cloNIDine HCL 0.1 MG TABLET PO ×2 (08:12→10:01)
[2024-07-12 08:17] LABS: MANUAL DIFF FLAG NO
[2024-07-12 08:20] LABS: Basophils Percent Auto 0.4 % (0-2); Eosinophils Absolute Auto 0.2 X10*3/uL (0.0-0.4); Eosinophils Percent Auto 2.8 % (0-4); Hematocrit 35.8 % (37.0-47.0); Imm Gran Abs Auto 0.03 X10*3/uL (0.00-0.03); Imm Gran Pct Auto 0.4 % (0.0-0.4); Lymphocytes Absolute Auto 1.8 X10*3/uL (1.2-4.9); Lymphocytes Percent Auto 25.4 % (20-40); Mean Corpuscular HGB Conc 33.5 g/dl (31.0-35.0); Mean Corpuscular Hemoglobin 29.4 pg (27.0-33.0); Mean Corpuscular Volume 87.7 fL (80.0-98.0); Mean Platelet Volume 9.4 fL (9.4-12.3); Monocytes Absolute Auto 0.6 X10*3/uL (0.1-1.2); Monocytes Percent Auto 8.1 % (2-11); Neutrophils Absolute Auto 4.4 x10*3/uL (2.0-8.3); Neutrophils Percent Auto 62.9 % (45-73); Platelet Count 257 X10*3/uL (160-400); Red Blood Count 4.08 X10*6/uL (4.20-5.50); Red Cell Distribution Width 12.9 % (11.0-16.0); White Blood Count 7.1 X10*3/uL (4.8-10.8)
[2024-07-12 08:32] LABS: Lactic Acid 0.9 mmol/L (0.5-2.0)
[2024-07-12 08:38] LABS: Alanine Aminotransferase 12 U/L (0-31); Albumin Level 3.5 g/dL (3.5-5.0); Alkaline Phosphatase 69 U/L (39-117); Anion Gap 13 (12-20); Aspartate Amino Transferase 18 U/L (5-31); Bilirubin Total 0.3 mg/dL (0.0-1.0); Blood Urea Nitrogen 14 mg/dL (9-16); C Reactive Protein 6.25 mg/dL (< or = 0.50); Calcium 9.5 mg/dL (8.4-10.2); Carbon Dioxide 29 mmol/L (22-29); Chloride 105 mmol/L (96-108); Creatinine Clr Calc Pharmacy 86.3; Estimated Glomerular Filt Rate > 60; Glucose Random 139 mg/dL (60-115); Magnesium 1.6 mg/dL (1.6-2.6); Sodium 144 mmol/L (135-145); Total Protein 7.6 g/dL (6.5-8.0)
[2024-07-12 09:01] LABS: Erythrocyte Sedimentation Rate 67 MM/HR (0-20)
[2024-07-12] MEDS: Potassium Chloride Packet 20 MEQ PACKET 40 MEQ PO (09:42)
[2024-07-12] MEDS: HYDROmorphone HCl 1 MG/ML SYRINGE IVPUSH ×2 (10:01→12:42)
[2024-07-12] MEDS: Gabapentin 300 MG CAPSULE PO (11:37)
--- NOTE | 2024-07-12 12:27 | ECG_ITS ---
Test Reason : HTN Blood Pressure : / mmHG Vent. Rate : 067 BPM Atrial Rate : 067 BPM P-R Int : 246 ms QRS Dur : 166 ms QT Int : 462 ms P-R-T Axes : 065 -42 088 degrees QTc Int : 488 ms Sinus rhythm with 1st degree A-V block Left axis deviation Right bundle branch block Left ventricular hypertrophy with repolarization abnormality ( R in aVL ) Abnormal ECG When compared with ECG of 09-JUN-2024 15:17, No significant change was found Referred By: Fermin Paredes Electronically Signed By:FRANCI OSEI
[2024-07-12] MEDS: Labetalol HCL 100 MG/20 ML VIAL 20 MG IVPUSH (12:37)
[2024-07-12 12:56] LABS: Troponin-I High Sensitivity 15.2 ng/L (<3.5-17.0)
--- NOTE | 2024-07-12 14:03 | PHA.MEDREC ---
Addendum entered by Dylan Calvo RPh 07/12/24 14:35: Reviewed by [facility] Original Note: Pharmacy Consult ? Medication Reconciliation Pharmacy has completed the medication reconciliation. Spoke to patient and patient seemed spacy and not fully there but was able to easily tell me what medications shes taking and which ones shes now not and why. She had on hand her Levofloxacin 250mg 500mg BID and she had 5 tabs left (2.5 days left), Clonidine 0.1mg and she states it just increased to 0.2mg TID and so she is taking 2 of her 0.2mg tabs 3 times a day and Hydralazine 25mg tabs which she states she stopped about 20 days ago for her own reasons. She also confirmed she was suppose to be starting Doxycycline Monolate and she said she picked it up but states she spoke with her doctor and they decided to not have the patient start taking them. She was taking Metformin 500mg tabs but states her doctor stopped them about a month ago. She confirmed she is gonna be starting Methocarbamol 500mg, Potassium Chloride 20 meq and Tramadol 50mg and she confirmed it was going to be 50mg BID as needed for pain. She confirmed she took her morning dose of medications.
--- NOTE | 2024-07-12 14:06 | PM.IMHP ---
History of Present Illness Date of Service: 07/12/24 Chief Complaint: Lower extremities wounds, Elevated BP A 69 years old lady with PMH of HTN, DMII, Venous ulcers follows w wound care who presents to the hospital with reported worsens wounds over last month with increase pain. The patient denies fever, chills, chest pain, palpitations, SOB, nausea, vomiting, diarrhea or urinary symptoms. She has been following with her PCP and seen [facility] at home for wound care. supposed to start wound clinic in couple of weeks. She thinks he wounds are progressively getting worse. reporting foul smelling and pain. She was noted to have significantly elevated blood pressure. she feels overall unwell and tired. she is not sleeping well as well. Received IV Labtelol along with PO Clonidine multiple doses with better control as she was at 210/120 on presentation. improved to 190/110. Admitted for further eval and treatment. Review of Systems Review of Systems: No fever, chills or weakness No chest pain, palpitation No shortness of breath or coughing No abdominal pain, nausea or vomiting No urinary symptoms bilateral chronic wounds in [facility] Medical History Chronic ulcer of left ankle Diabetes Hypertension Abnormal Pap smear of cervix Diabetes mellitus Hypertension Renal calculi Diastasis recti Dyslipidemia associated with type 2 diabetes mellitus Abdominal mass Microalbuminuria Renal calculi Morbid obesity Family History Father Seizures Mother Seizures Congenital heart disease in adult Hypotension Maternal Grandfather Leukemia Surgical History Hx of prior ablation treatment Social History Household Members: Children Housing: Apartment Do you presently have visiting nurse or other home services: No Alcohol intake: current Alcohol intake frequency: holidays/special occasions only Alcohol type: wine Patient Tobacco Use Status: Former Tobacco user Tobacco use type: Cigarette e-Cigarette/Vaping Use: Never Used Second Hand Smoke Exposure: No Use of substances other than those prescribed or required for medical reasons: No Substance Use Type: Other Advance Directives: No Advance Directives Information Provided: Yes Do you have a plan to hurt others: No Plan service: No Current occupational status: employed Current occupational exposures/hazards: No Meds Allergies Allergy/AdvReac Type Severity Reaction Status Date / Time amlodipine Allergy Intermediate drowsiness, Verified 07/12/24 06:46 swelling of feet and ankles lisinopril Allergy Intermediate cough Verified 07/12/24 06:46 hydralazine Allergy Swelling Verified 07/12/24 06:46 metformin AdvReac Diarrhea Verified 07/12/24 06:46 Lisinopril-Hydrochlorothiazide AdvReac Intermediate Leg Uncoded 07/01/24 15:57 swelling Metoprolol Tartrate AdvReac Intermediate Leg Uncoded 07/01/24 15:57 swelling Home Medications ?Medication ?Instructions ?Recorded ?Confirmed ?Last Taken ?Type albuterol sulfate 90 mcg/actuation 2 puff inhalation Q6H PRN Wheezing 02/10/21 07/12/24 07/12/24 History aerosol inhaler cholecalciferol (vitamin D3) 25 25 mcg PO DAILY 01/11/24 07/12/24 07/12/24 History mcg (1,000 unit) tablet levofloxacin 250 mg tablet 250 mg PO DAILY 07/10/24 07/12/24 07/12/24 History clonidine HCl 0.1 mg tablet 0.2 mg PO TID 07/12/24 07/12/24 07/12/24 History metformin 500 mg tablet 500 mg PO BID 07/12/24 07/12/24 07/12/24 History Physical Exam Vital Signs and Narrative: Vital Signs: Last Vital Signs Temp 98.2 F 07/12/24 10:23 Pulse 75 07/12/24 12:37 Resp 16 07/12/24 10:23 BP 193/113 H 07/12/24 12:37 Pulse Ox 98 07/12/24 10:23 O2 Del Method Room Air 07/12/24 10:23 BMI result Body Mass Index 42.6 Const: Other: Constitutional : Awake, interactive, not in distress Neck : Normal inspection, Supple Cardiovascular : RRR, no JVP, no lower extremity edema Respiratory : good bilateral air entry, no crackles, wheezes or rhonchi Gastrointestinal: soft, lax, Normal bowel sounds, Non tender Skin : Warm, Dry, chronic venous wound with eschar and bad odor with no significant erythema, warmth but tender to touch bilaterally worse on left covered with dressing Neurological : Alert & oriented x3, No focal deficit General: No patient obtunded Orientation/consciousness: No patient obtunded Neuro: General: No patient obtunded Results Labs 07/12/24 08:07 07/12/24 08:07 Labs: Laboratory Results - last 24 hr 07/12/24 08:07 MCV 87.7 MCH 29.4 MCHC 33.5 RDW 12.9 Plt Count 257 MPV 9.4 Immature Gran % (Auto) 0.4 Neut % (Auto) 62.9 Lymph % (Auto) 25.4 [place] % (Auto) 8.1 Eos % (Auto) 2.8 Baso % (Auto) 0.4 Lymph # (Auto) 1.8 [place] # (Auto) 0.6 Eos # (Auto) 0.2 Baso # (Auto) 0.0 Abs Immat Gran (auto) 0.03 Absolute Neuts (auto) 4.4 Absolute Nucleated RBC 0.000 Nucleated RBC % (auto) 0.0 ESR 67 H Anion Gap 13 Estim Creat Clear Calc 86.3 Estimated GFR > 60 Random Glucose 139 H Lactic Acid 0.9 Calcium 9.5 Magnesium 1.6 Total Bilirubin 0.3 AST 18 ALT 12 Alkaline Phosphatase 69 Troponin I High Sens 15.2 C-Reactive Protein 6.25 H Total Protein 7.6 Albumin 3.5 Assessment and Plan (1) Wound of lower extremity: Status: Acute (2) Venous stasis ulcer: Status: Acute (3) Hypertensive urgency: Status: Acute Plan A 69 years old lady with PMH of HTN, DMII, Venous ulcers follows w wound care who presents to the hospital with reported worsens wounds over last month with increase pain. Hypertensive urgency On Clonidine only at home, she is not sure why Start PO Losartan 25 mg daily Start Doxazosin 2 mg daily continue home dose clonidine Venous ulcer in type 2 DM continue local measures IV Doxycycline along w levaquin PO Surgery consult pending for possible debridement Acute hypokalemia replacement given, follow BMP DMII Hold Metformin SSI and diabetic diet Acute hypokalemia K replacement, follow BMP Morbid obesity advised weight loss DVT PPX Lovenox The patient will likely need 2 overnight hospital stay for Bp control and wound evaluation pending specialist consult on IV Antibiotics. Quality Stroke Does the patient have a stroke diagnosis?: No VTE Prior VTE?: No VTE Risk Level:: Medical - moderate - high VTE Device Contraindication: Treatment Not Indicated VTE Drug Contraindication: N/A - Med Ordered
[2024-07-12] MEDS: Doxazosin Mesylate 2 MG TABLET PO (15:32)
[2024-07-12] MEDS: cloNIDine HCL 0.2 MG TABLET PO ×2 (15:33→23:05)
[2024-07-12] MEDS: Losartan Potassium 25 MG TABLET PO (15:33)
[2024-07-12] MEDS: Enoxaparin Sodium 40 MG/0.4 ML SYRINGE SUBCUT (15:33)
[2024-07-12] MEDS: Doxycycline Hyclate 100 MG in 0.9 % Sodium Chloride 250 ML 166.67 MG IV (20:32)
[2024-07-12] MEDS: 0.9 % Sodium Chloride Flush 3 ML SYRINGE IVFLUSH (20:35)
[2024-07-12 20:55] LABS: Glucose, Whole Blood 146 mg/dL (60-115)
[2024-07-12] MEDS: traMADoL HCL 50 MG TABLET PO (23:08)
[2024-07-13] VITALS (8 sets, daily range): BP systolic 150–201; BP diastolic 74–109; PULSE 70–77; RESP 18–20; TEMP 36.6–37.1; O2SAT 94–98
[2024-07-13] MEDS: Morphine Sulfate 4 MG/ML CARTRIDGE IVPUSH (02:53)
[2024-07-13] MEDS: Doxycycline Hyclate 100 MG in 0.9 % Sodium Chloride 250 ML 166.67 MG IV ×2 (06:47→20:16)
[2024-07-13 07:48] LABS: Anion Gap 13 (12-20); Blood Urea Nitrogen 12 mg/dL (9-16); Carbon Dioxide 28 mmol/L (22-29); Chloride 102 mmol/L (96-108); Creatinine Clr Calc Pharmacy 80.6; Estimated Glomerular Filt Rate > 60; Glucose Random 179 mg/dL (60-115); Potassium 3.1 mmol/L (3.3-5.1); Sodium 140 mmol/L (135-145)
[2024-07-13 08:23] LABS: Glucose, Whole Blood 159 mg/dL (60-115)
--- NOTE | 2024-07-13 08:56 | MHC.CM.PN ---
CM met with Patient at bedside and addressed IMM with her, providing Patient with the original and a copy has been placed on the chart. Patient lives in an apartment with her Daughter and Son and she required no DME nor services [employer]. Patient indicated that her PCP set her up with [facility] for wound Care, in the past but they made there visits on a Monday, which Patient did not approve of. Patient also indicated that there were no appointment available with the Wound Clinic in the near future so her Daughter has been caring for her wounds.Home is the goal and CM has initiated and will follow for dc planning. PCP is Dr. Lillian Christie and her Daughter will transport to home (after 4PM).
[2024-07-13] MEDS: Potassium Chloride ER 20 MEQ TAB.ER.PRT 40 MEQ PO (09:16)
[2024-07-13] MEDS: Potassium Chloride ER 20 MEQ TAB.ER.PRT PO (09:16)
[2024-07-13] MEDS: cloNIDine HCL 0.2 MG TABLET PO ×3 (09:16→20:19)
[2024-07-13] MEDS: Cholecalciferol (Vitamin D3) 25 MCG TABLET PO (09:16)
[2024-07-13] MEDS: Aspirin Enteric Coated 81 MG TABLET.DR PO (09:17)
[2024-07-13] MEDS: Doxazosin Mesylate 2 MG TABLET 4 MG PO (09:17)
[2024-07-13] MEDS: levoFLOXacin 250 MG TABLET PO (09:18)
[2024-07-13] MEDS: Losartan Potassium 50 MG TABLET PO ×2 (09:18→20:18)
[2024-07-13] MEDS: 0.9 % Sodium Chloride Flush 3 ML SYRINGE IVFLUSH ×2 (09:19→20:20)
[2024-07-13] MEDS: oxyCODONE HCl Immed Release 5 MG TABLET PO ×3 (09:55→20:16)
--- NOTE | 2024-07-13 11:17 | HO.PM.IMPN ---
Subjective Subjective Date of Service: 07/13/24 Interval History: Seen and evaluated this moring having pain in her leg wounds denies any fever or chills BP still significantly elevated no other overnight events Review of Systems Review of Systems: Yes all other systems are reviewed and are negative Physical Exam Vital Signs: Vital Signs: Last Vital Signs Temp 97.9 F 07/13/24 08:35 Pulse 70 07/13/24 08:35 Resp 18 07/13/24 08:35 BP 192/100 H 07/13/24 08:35 Pulse Ox 94 07/13/24 08:35 O2 Del Method Room Air 07/13/24 08:35 BMI result Body Mass Index 42.6 Const: Other: Constitutional : Awake, interactive, not in distress Neck : Normal inspection, Supple Cardiovascular : RRR, no JVP, no lower extremity edema Respiratory : good bilateral air entry, no crackles, wheezes or rhonchi Gastrointestinal: soft, lax, Normal bowel sounds, Non tender Skin : Warm, Dry, chronic venous wound with eschar and bad odor with no significant erythema, warmth but tender to touch bilaterally worse on left covered with dressing Neurological : Alert & oriented x3, No focal deficit Objective Data Active Medications Acetaminophen (Acetaminophen 325 Mg Tablet) 650 mg PO Q6H PRN PRN Reason: Pain, Mild (Pain Scale 1-3), fever or headache Albuterol Sulfate (Albuterol Sulfate 90 Mcg 8 Gm Inhaler) 2 puff INHALE Q6H PRN PRN Reason: Wheezing Aspirin (Aspirin Enteric Coated 81 Mg Tablet.) 81 mg PO DAILY [facility] Last Admin: 07/13/24 09:17 Dose: 81 mg Documented By: YANETH Calcium Carbonate (Calcium Carbonate 750 Mg Tab.Chew) 750 mg PO Q4H PRN PRN Reason: Heartburn Clonidine HCl (Clonidine Hcl 0.2 Mg Tablet) 0.2 mg PO TID [facility]; Protocol Last Admin: 07/13/24 09:16 Dose: 0.2 mg Documented By: YANETH Doxazosin Mesylate (Doxazosin Mesylate 2 Mg Tablet) 4 mg PO DAILY [facility] [place]; Protocol Last Admin: 07/13/24 09:17 Dose: 4 mg Documented By: YANETH Enoxaparin Sodium (Enoxaparin Sodium 40 Mg/0.4 Ml Syringe) 40 mg SUBCUT Q24H [facility] [place] Last Admin: 07/12/24 15:33 Dose: 40 mg Documented By: DEION Doxycycline Hyclate 100 mg/ (Sodium Chloride) 250 mls @ 166.67 mls/hr IV Q12H [facility] [place] Last Infusion: 07/13/24 09:19 Dose: Infused Documented By: YANETH Ibuprofen (Ibuprofen 800 Mg Tablet) 800 mg PO Q8H PRN PRN Reason: Pain, Mild (Pain Scale 1-3) Insulin Human Lispro (Insulin Lispro 100 Unit/Ml 3 Ml Vial) 0 unit SUBCUT QIDACHS [facility] [place]; Protocol Last Admin: 07/13/24 09:16 Dose: Not Given Documented By: YANETH Non-Admin Reason: Patient Refused Levofloxacin (Levofloxacin 250 Mg Tablet) 250 mg PO DAILY [facility] [place] Last Admin: 07/13/24 09:18 Dose: 250 mg Documented By: YANETH Losartan Potassium (Losartan Potassium 50 Mg Tablet) 50 mg PO DAILY [facility] [place]; Protocol Last Admin: 07/13/24 09:18 Dose: 50 mg Documented By: YANETH Magnesium Hydroxide (Milk Of Magnesia 30 Ml Oral.Susp) 30 ml PO DAILY PRN PRN Reason: Constipation Melatonin (Melatonin 3 Mg Tablet) 6 mg PO BEDTIME PRN PRN Reason: Insomnia Methocarbamol (Methocarbamol 500 Mg Tablet) 500 mg PO TID PRN PRN Reason: Muscle Spasm Ondansetron HCl (Ondansetron Hcl 4 Mg/2 Ml Vial) 4 mg IVPUSH Q8H PRN PRN Reason: Nausea and Vomiting Oxycodone HCl (Oxycodone Hcl Immed Release 5 Mg Tablet) 5 mg PO Q4H PRN PRN Reason: Pain, Severe (Pain Scale 7-10) Last Admin: 07/13/24 09:55 Dose: 5 mg Documented By: YANETH Potassium Chloride (Potassium Chloride Er 20 Meq Tab.Er.Prt) 20 meq PO DAILY [facility] [place] Last Admin: 07/13/24 09:16 Dose: 20 meq Documented By: YANETH Sodium Chloride (0.9 % Sodium Chloride Flush 3 Ml Syringe) 3 ml IVFLUSH QSHIFT [facility] [place] Last Admin: 07/13/24 09:19 Dose: 3 ml Documented By: YANETH Tramadol HCl (Tramadol Hcl 50 Mg Tablet) 50 mg PO BID PRN PRN Reason: Pain, Moderate(Pain Scale 4-6) Last Admin: 07/12/24 23:08 Dose: 50 mg Documented By: CRUZ Vitamin D (Cholecalciferol (Vitamin D3) 25 Mcg Tablet) 25 mcg PO DAILY [facility] Last Admin: 07/13/24 09:16 Dose: 25 mcg Documented By: YANETH Labs 07/12/24 08:07 07/13/24 07:08 Labs: Laboratory Results - last 24 hr 07/12/24 07/12/24 07/13/24 08:07 20:43 07:08 Hold Purple Top SEE NOTE Anion Gap 13 Estim Creat Clear Calc 80.6 Estimated GFR > 60 POC Glucose 146 H Random Glucose 179 H Calcium 9.0 Troponin I High Sens 15.2 07/13/24 08:10 Hold Purple Top Anion Gap Estim Creat Clear Calc Estimated GFR POC Glucose 159 H Random Glucose Calcium Troponin I High Sens Microbiology Microbiology Results: Microbiology 07/12/24 08:07 Blood Culture - Preliminary Blood - Venous No growth after 24 hours. 07/12/24 08:10 Blood Culture - Preliminary Blood - Venous No growth after 24 hours. Assessment and Plan (1) Hypertensive urgency: Status: Acute (2) Venous stasis ulcer: Status: Acute (3) Wound of lower extremity: Status: Acute Plan A 69 years old lady with PMH of HTN, DMII, Venous ulcers follows w wound care who presents to the hospital with reported worsens wounds over last month with increase pain. Hypertensive urgency On Clonidine only at home, she is not sure why Increase PO Losartan to 50 mg daily Increase Doxazosin 4 mg daily continue home dose clonidine Venous ulcer in type 2 DM continue local measures IV Doxycycline along w levaquin PO Surgery consult pending for possible debridement Acute hypokalemia replacement given, follow BMP DMII Hold Metformin SSI and diabetic diet Acute hypokalemia K replacement, follow BMP Morbid obesity advised weight loss DVT PPX Lovenox The patient will likely need overnight hospital stay for Bp control and wound evaluation pending specialist consult on IV Antibiotics. Quality Stroke Does the patient have a stroke diagnosis?: No VTE Prior VTE?: No VTE Risk Level:: Medical - moderate - high VTE Device Contraindication: Treatment Not Indicated VTE Drug Contraindication: N/A - Med Ordered
[2024-07-13 12:11] LABS: Glucose, Whole Blood 172 mg/dL (60-115)
[2024-07-13] MEDS: Enoxaparin Sodium 40 MG/0.4 ML SYRINGE SUBCUT (13:30)
[2024-07-13 16:12] LABS: Glucose, Whole Blood 126 mg/dL (60-115)
--- NOTE | 2024-07-13 16:39 | P.CONGS_ITS ---
History of Present Illness Consult details Consult date: 07/13/24 Narrative: Patient presents with a plethora of comorbidities and intercurrent medical problems. Surgical consultation regarding bilateral lower extremity ulcers/wounds. She states that she has had these approximately 1 month's time. Consult was for wound evaluation and debridement. Chart was reviewed and patient evaluated [facility] Past Medical History Medical History Chronic ulcer of left ankle Diabetes Hypertension Abnormal Pap smear of cervix Diabetes mellitus Hypertension Renal calculi Diastasis recti Dyslipidemia associated with type 2 diabetes mellitus Abdominal mass Microalbuminuria Renal calculi Morbid obesity Family History Family History Father Seizures Mother Seizures Congenital heart disease in adult Hypotension Maternal Grandfather Leukemia Surgical History Surgical History Hx of prior ablation treatment Social History Social History Household Members: Family Housing: House Do you presently have visiting nurse or other home services: No Alcohol intake: current Alcohol intake frequency: holidays/special occasions only Alcohol type: wine Patient Tobacco Use Status: Former Tobacco user Tobacco use type: Cigarette e-Cigarette/Vaping Use: Never Used Second Hand Smoke Exposure: No Substance Use Type: Other service: No Current occupational status: employed Current occupational exposures/hazards: No Meds Allergies Allergy/AdvReac Type Severity Reaction Status Date / Time amlodipine Allergy Intermediate drowsiness, Verified 07/12/24 06:46 swelling of feet and ankles lisinopril Allergy Intermediate cough Verified 07/12/24 06:46 hydralazine Allergy Swelling Verified 07/12/24 06:46 metformin AdvReac Diarrhea Verified 07/12/24 06:46 Lisinopril-Hydrochlorothiazide AdvReac Intermediate Leg Uncoded 07/01/24 15:57 swelling Metoprolol Tartrate AdvReac Intermediate Leg Uncoded 07/01/24 15:57 swelling Active Medications: Current Medications Acetaminophen (Acetaminophen 325 Mg Tablet) 650 mg PO Q6H PRN PRN Reason: Pain, Mild (Pain Scale 1-3), fever or headache Albuterol Sulfate (Albuterol Sulfate 90 Mcg 8 Gm Inhaler) 2 puff INHALE Q6H PRN PRN Reason: Wheezing Aspirin (Aspirin Enteric Coated 81 Mg Tablet.Dr) 81 mg PO DAILY [facility] Last Admin: 07/13/24 09:17 Dose: 81 mg Calcium Carbonate (Calcium Carbonate 750 Mg Tab.Chew) 750 mg PO Q4H PRN PRN Reason: Heartburn Clonidine HCl (Clonidine Hcl 0.2 Mg Tablet) 0.2 mg PO TID [facility]; Protocol Last Admin: 07/13/24 13:30 Dose: 0.2 mg Doxazosin Mesylate (Doxazosin Mesylate 2 Mg Tablet) 4 mg PO DAILY [facility]; Protocol Last Admin: 07/13/24 09:17 Dose: 4 mg Enoxaparin Sodium (Enoxaparin Sodium 40 Mg/0.4 Ml Syringe) 40 mg SUBCUT Q24H [facility] Last Admin: 07/13/24 13:30 Dose: 40 mg Doxycycline Hyclate 100 mg/ (Sodium Chloride) 250 mls @ 166.67 mls/hr IV Q12H [facility] Last Infusion: 07/13/24 09:19 Dose: Infused Ibuprofen (Ibuprofen 800 Mg Tablet) 800 mg PO Q8H PRN PRN Reason: Pain, Mild (Pain Scale 1-3) Insulin Human Lispro (Insulin Lispro 100 Unit/Ml 3 Ml Vial) 0 unit SUBCUT QIDACHS [facility]; Protocol Last Admin: 07/13/24 13:31 Dose: Not Given Levofloxacin (Levofloxacin 250 Mg Tablet) 250 mg PO DAILY [facility] Last Admin: 07/13/24 09:18 Dose: 250 mg Losartan Potassium (Losartan Potassium 50 Mg Tablet) 50 mg PO BID [facility]; Protocol Magnesium Hydroxide (Milk Of Magnesia 30 Ml Oral.Susp) 30 ml PO DAILY PRN PRN Reason: Constipation Melatonin (Melatonin 3 Mg Tablet) 6 mg PO BEDTIME PRN PRN Reason: Insomnia Methocarbamol (Methocarbamol 500 Mg Tablet) 500 mg PO TID PRN PRN Reason: Muscle Spasm Ondansetron HCl (Ondansetron Hcl 4 Mg/2 Ml Vial) 4 mg IVPUSH Q8H PRN PRN Reason: Nausea and Vomiting Oxycodone HCl (Oxycodone Hcl Immed Release 5 Mg Tablet) 5 mg PO Q4H PRN PRN Reason: Pain, Severe (Pain Scale 7-10) Last Admin: 07/13/24 14:33 Dose: 5 mg Potassium Chloride (Potassium Chloride Er 20 Meq Tab.Er.Prt) 20 meq PO DAILY [facility] Last Admin: 07/13/24 09:16 Dose: 20 meq Sodium Chloride (0.9 % Sodium Chloride Flush 3 Ml Syringe) 3 ml IVFLUSH QSHIFT [facility] Last Admin: 07/13/24 09:19 Dose: 3 ml Tramadol HCl (Tramadol Hcl 50 Mg Tablet) 50 mg PO BID PRN PRN Reason: Pain, Moderate(Pain Scale 4-6) Last Admin: 07/12/24 23:08 Dose: 50 mg Vitamin D (Cholecalciferol (Vitamin D3) 25 Mcg Tablet) 25 mcg PO DAILY [facility] Last Admin: 07/13/24 09:16 Dose: 25 mcg Home Medications ?Medication ?Instructions ?Recorded ?Confirmed ?Last Taken ?Type albuterol sulfate 90 mcg/actuation 2 puff inhalation Q6H PRN Wheezing 02/10/21 07/12/24 07/12/24 History aerosol inhaler cholecalciferol (vitamin D3) 25 25 mcg PO DAILY 01/11/24 07/12/24 07/12/24 History mcg (1,000 unit) tablet levofloxacin 250 mg tablet 250 mg PO DAILY 07/10/24 07/12/24 07/12/24 History clonidine HCl 0.1 mg tablet 0.2 mg PO TID 07/12/24 07/12/24 07/12/24 History metformin 500 mg tablet 500 mg PO BID 07/12/24 07/12/24 07/12/24 History Physical Exam 2 Vital Signs: Vital Signs: Last Vital Signs Temp 98.6 F 07/13/24 16:00 Pulse 74 07/13/24 16:00 Resp 20 07/13/24 16:00 BP 150/74 H 07/13/24 16:00 Pulse Ox 96 07/13/24 16:00 O2 Del Method Room Air 07/13/24 16:00 BMI result Body Mass Index 42.6 Extrem: Other: Bilateral lower extremity ulcers/wounds. One involving the lateral aspect of the right ankle on the right and the medial aspect of the left ankle of the left. Each has overlying eschar and slough. Extremities demonstrate modest bilateral edema. Each extremities grossly neurovascularly intact Results Labs 07/12/24 08:07 07/13/24 07:08 Labs: Abnormal lab results 07/12/24 07/13/24 07/13/24 Range/Units 20:43 07:08 08:10 Potassium 3.1 L (3.3-5.1) mmol/L POC Glucose 146 H 159 H (60-115) mg/dL Random Glucose 179 H (60-115) mg/dL 07/13/24 07/13/24 Range/Units 12:01 16:08 Potassium (3.3-5.1) mmol/L POC Glucose 172 H 126 H (60-115) mg/dL Random Glucose (60-115) mg/dL [facility] 07/13/24 07:08 Sodium 140 Potassium 3.1 L Chloride 102 Carbon Dioxide 28 BUN 12 Creatinine 0.91 Calcium 9.0 All other labs normal. Assessment and Plan (1) Wound of lower extremity: Status: Acute (2) Lower extremity edema: Status: Acute Plan I discussed with the patient the need for local wound debridement for each lower extremity wound. She is willing to do so but will like to wait until tomorrow. She will be given preprocedure analgesia prior to the local debridement bilaterally lower extremities. Procedures Date of Service Date of Service: 07/13/24
[2024-07-13 20:57] LABS: Glucose, Whole Blood 146 mg/dL (60-115)
[2024-07-14] VITALS (9 sets, daily range): BP systolic 138–189; BP diastolic 60–99; PULSE 59–78; RESP 16–20; TEMP 36.2–37.7; O2SAT 94–98
[2024-07-14] MEDS: oxyCODONE HCl Immed Release 5 MG TABLET PO ×5 (00:22→20:43)
[2024-07-14] MEDS: Labetalol HCL 100 MG/20 ML VIAL 10 MG IVPUSH (01:16)
--- NOTE | 2024-07-14 05:18 | PM.EVENT ---
Event Note Date of Service: 07/14/24 Event Note: Contacted in multiple occasions overnight to notify persistent uncontrolled HTN. Labetralol IV given. Will increase clonidine to 0.3 mg PO tid. Time Spent With Patient Time: Total time managing care of this patient today ____ minutes.
[2024-07-14] MEDS: cloNIDine HCL 0.1 MG TABLET 0.3 MG PO ×4 (05:41→20:43)
[2024-07-14 07:10] LABS: Hematocrit 33.9 % (37.0-47.0); Hemoglobin 11.5 g/dl (12.0-16.0); Mean Corpuscular HGB Conc 33.9 g/dl (31.0-35.0); Mean Corpuscular Hemoglobin 29.9 pg (27.0-33.0); Mean Corpuscular Volume 88.1 fL (80.0-98.0); Mean Platelet Volume 9.9 fL (9.4-12.3); Platelet Count 218 X10*3/uL (160-400); Red Blood Count 3.85 X10*6/uL (4.20-5.50); White Blood Count 7.2 X10*3/uL (4.8-10.8)
[2024-07-14 07:13] LABS: Anion Gap 15 (12-20); Blood Urea Nitrogen 12 mg/dL (9-16); Calcium 9.3 mg/dL (8.4-10.2); Carbon Dioxide 26 mmol/L (22-29); Chloride 102 mmol/L (96-108); Creatinine Clr Calc Pharmacy 89.4; Estimated Glomerular Filt Rate > 60; Glucose Random 159 mg/dL (60-115); Potassium 3.5 mmol/L (3.3-5.1); Sodium 139 mmol/L (135-145)
[2024-07-14 08:02] LABS: Glucose, Whole Blood 162 mg/dL (60-115)
[2024-07-14] MEDS: Losartan Potassium 50 MG TABLET PO ×2 (08:29→20:44)
[2024-07-14] MEDS: Cholecalciferol (Vitamin D3) 25 MCG TABLET PO (08:30)
[2024-07-14] MEDS: levoFLOXacin 250 MG TABLET PO (08:30)
[2024-07-14] MEDS: Aspirin Enteric Coated 81 MG TABLET.DR PO (08:31)
[2024-07-14] MEDS: Potassium Chloride ER 20 MEQ TAB.ER.PRT PO (08:31)
[2024-07-14] MEDS: Furosemide 20 MG TABLET PO (08:31)
[2024-07-14] MEDS: Doxazosin Mesylate 2 MG TABLET 4 MG PO (08:31)
[2024-07-14] MEDS: Doxycycline Hyclate 100 MG in 0.9 % Sodium Chloride 250 ML IV (08:32)
[2024-07-14] MEDS: 0.9 % Sodium Chloride Flush 3 ML SYRINGE IVFLUSH ×2 (08:35→20:46)
--- NOTE | 2024-07-14 10:43 | P.PNIM_ITS ---
Subjective Subjective Date of Service: 07/14/24 Interval History: Seen and evaluated this moring surgery planning debridement of her leg wounds denies any fever or chills BP still elevated no other overnight events Review of Systems Review of Systems: Yes all other systems are reviewed and are negative Physical Exam 2 Vital Signs: Vital Signs: Last Vital Signs Temp 97.9 F 07/14/24 08:00 Pulse 70 07/14/24 08:00 Resp 18 07/14/24 08:00 BP 182/96 H 07/14/24 08:00 Pulse Ox 97 07/14/24 08:00 O2 Del Method Room Air 07/14/24 08:00 BMI result Body Mass Index 42.6 Const: Other: Constitutional : Awake, interactive, not in distress Neck : Normal inspection, Supple Cardiovascular : RRR, no JVP, no lower extremity edema Respiratory : good bilateral air entry, no crackles, wheezes or rhonchi Gastrointestinal: soft, lax, Normal bowel sounds, Non tender Skin : Warm, Dry, chronic venous wound with eschar and bad odor with no significant erythema, warmth but tender to touch bilaterally worse on left covered with dressing Neurological : Alert & oriented x3, No focal deficit Objective Data Active Medications Acetaminophen (Acetaminophen 325 Mg Tablet) 650 mg PO Q6H PRN PRN Reason: Pain, Mild (Pain Scale 1-3), fever or headache Albuterol Sulfate (Albuterol Sulfate 90 Mcg 8 Gm Inhaler) 2 puff INHALE Q6H PRN PRN Reason: Wheezing Aspirin (Aspirin Enteric Coated 81 Mg Tablet.Dr) 81 mg PO DAILY [facility] Last Admin: 07/14/24 08:31 Dose: 81 mg Documented By: YANETH Calcium Carbonate (Calcium Carbonate 750 Mg Tab.Chew) 750 mg PO Q4H PRN PRN Reason: Heartburn Clonidine HCl (Clonidine Hcl 0.1 Mg Tablet) 0.3 mg PO TID [facility]; Protocol Last Admin: 07/14/24 08:29 Dose: 0.3 mg Documented By: YANETH Doxazosin Mesylate (Doxazosin Mesylate 2 Mg Tablet) 4 mg PO DAILY [facility]; Protocol Last Admin: 07/14/24 08:31 Dose: 4 mg Documented By: YANETH Enoxaparin Sodium (Enoxaparin Sodium 40 Mg/0.4 Ml Syringe) 40 mg SUBCUT Q24H [facility] Last Admin: 10/05/24 13:30 Dose: 40 mg Documented By: YANETH Furosemide (Furosemide 20 Mg Tablet) 20 mg PO DAILY [facility]; Protocol Last Admin: 07/14/24 08:31 Dose: 20 mg Documented By: YANETH Doxycycline Hyclate 100 mg/ (Sodium Chloride) 250 mls @ 166.67 mls/hr IV Q12H [facility] Last Admin: 07/14/24 08:32 Dose: 100 mls/hr Documented By: YANETH Ibuprofen (Ibuprofen 800 Mg Tablet) 800 mg PO Q8H PRN PRN Reason: Pain, Mild (Pain Scale 1-3) Insulin Human Lispro (Insulin Lispro 100 Unit/Ml 3 Ml Vial) 0 unit SUBCUT QIDACHS [facility]; Protocol Last Admin: 07/14/24 08:32 Dose: Not Given Documented By: YANETH Non-Admin Reason: No Insulin Coverage Levofloxacin (Levofloxacin 250 Mg Tablet) 250 mg PO DAILY [facility] Last Admin: 07/14/24 08:30 Dose: 250 mg Documented By: YANETH Losartan Potassium (Losartan Potassium 50 Mg Tablet) 50 mg PO BID [facility]; Protocol Last Admin: 07/14/24 08:29 Dose: 50 mg Documented By: YANETH Magnesium Hydroxide (Milk Of Magnesia 30 Ml Oral.Susp) 30 ml PO DAILY PRN PRN Reason: Constipation Melatonin (Melatonin 3 Mg Tablet) 6 mg PO BEDTIME PRN PRN Reason: Insomnia Methocarbamol (Methocarbamol 500 Mg Tablet) 500 mg PO TID PRN PRN Reason: Muscle Spasm Ondansetron HCl (Ondansetron Hcl 4 Mg/2 Ml Vial) 4 mg IVPUSH Q8H PRN PRN Reason: Nausea and Vomiting Oxycodone HCl (Oxycodone Hcl Immed Release 5 Mg Tablet) 5 mg PO Q4H PRN PRN Reason: Pain, Severe (Pain Scale 7-10) Last Admin: 07/14/24 08:28 Dose: 5 mg Documented By: YANETH Potassium Chloride (Potassium Chloride Er 20 Meq Tab.Er.Prt) 20 meq PO DAILY [facility] Last Admin: 07/14/24 08:31 Dose: 20 meq Documented By: YANETH Sodium Chloride (0.9 % Sodium Chloride Flush 3 Ml Syringe) 3 ml IVFLUSH QSHIFT [facility] Last Admin: 07/14/24 08:35 Dose: 3 ml Documented By: YANETH Tramadol HCl (Tramadol Hcl 50 Mg Tablet) 50 mg PO BID PRN PRN Reason: Pain, Moderate(Pain Scale 4-6) Last Admin: 07/12/24 23:08 Dose: 50 mg Documented By: CRUZ Vitamin D (Cholecalciferol (Vitamin D3) 25 Mcg Tablet) 25 mcg PO DAILY [facility] Last Admin: 07/14/24 08:30 Dose: 25 mcg Documented By: YANETH Labs 07/14/24 06:10 07/14/24 06:10 Labs: Laboratory Results - last 24 hr 07/13/24 07/13/24 07/13/24 12:01 16:08 20:53 MCV MCH MCHC RDW Plt Count MPV Absolute Nucleated RBC Nucleated RBC % (auto) Anion Gap Estim Creat Clear Calc Estimated GFR POC Glucose 172 H 126 H 146 H Random Glucose Calcium 07/14/24 07/14/24 06:10 07:46 MCV 88.1 MCH 29.9 MCHC 33.9 RDW 13.0 Plt Count 218 MPV 9.9 Absolute Nucleated RBC 0.000 Nucleated RBC % (auto) 0.0 Anion Gap 15 Estim Creat Clear Calc 89.4 Estimated GFR > 60 POC Glucose 162 H Random Glucose 159 H Calcium 9.3 Microbiology Microbiology Results: Microbiology 07/12/24 08:07 Blood Culture - Preliminary Blood - Venous No growth after 48 hours. 07/12/24 08:10 Blood Culture - Preliminary Blood - Venous No growth after 48 hours. Assessment and Plan (1) Hypertensive urgency: Status: Acute (2) Wound of lower extremity: Status: Acute (3) Venous stasis ulcer: Status: Acute Plan A 69 years old lady with PMH of HTN, DMII, Venous ulcers follows w wound care who presents to the hospital with reported worsens wounds over last month with increase pain. Hypertensive urgency On Clonidine only at home, she is not sure why Increase PO Losartan to 50 mg daily Increase Doxazosin 4 mg daily Add Lasix 20 mg daily continue home dose c 0.3mg tilonidine Nephrology for management and follow up Venous ulcer in type 2 DM continue local measures IV Doxycycline along w levaquin PO Surgery planning debridement Acute hypokalemia replacement given, follow BMP DMII Hold Metformin SSI and diabetic diet Acute hypokalemia K replacement, follow BMP Morbid obesity advised weight loss DVT PPX Lovenox The patient will likely need overnight hospital stay for Bp control and wound evaluation pending specialist consult on IV Antibiotics. Quality Stroke Does the patient have a stroke diagnosis?: No VTE Prior VTE?: No VTE Risk Level:: Medical - moderate - high VTE Device Contraindication: Treatment Not Indicated VTE Drug Contraindication: N/A - Med Ordered
[2024-07-14 12:00] LABS: Glucose, Whole Blood 173 mg/dL (60-115)
--- NOTE | 2024-07-14 13:26 | P.PNGS_ITS ---
Subjective Subjective Date of Service: 07/14/24 Interval history: Patient agreed to debridement of her lower extremity wounds Physical Exam 2 Vital Signs: Vital Signs: Last Vital Signs Temp 97.7 F 07/14/24 11:41 Pulse 73 07/14/24 11:41 Resp 18 07/14/24 11:41 BP 161/83 H 07/14/24 11:41 Pulse Ox 97 07/14/24 11:41 O2 Del Method Room Air 07/14/24 11:41 BMI result Body Mass Index 42.6 Extrem: Other: 1. Lateral aspect of right distal ankle wound was debrided of superficial eschar, necrotic skin and soft tissue involving lateral aspect of the ankle sharply.. Remaining more medial eschar left intact. Dressing applied. 2. Medial aspect of left ankle wound kim rided of eschar, necrotic skin and soft tissue sharply. Dry eschar left intact. Bilateral lower extremity dressings were applied. Patient tolerated procedure well Objective Data Active Medications Acetaminophen (Acetaminophen 325 Mg Tablet) 650 mg PO Q6H PRN PRN Reason: Pain, Mild (Pain Scale 1-3), fever or headache Albuterol Sulfate (Albuterol Sulfate 90 Mcg 8 Gm Inhaler) 2 puff INHALE Q6H PRN PRN Reason: Wheezing Aspirin (Aspirin Enteric Coated 81 Mg Tablet.Dr) 81 mg PO DAILY [facility] Last Admin: 07/14/24 08:31 Dose: 81 mg Documented By: YANETH Calcium Carbonate (Calcium Carbonate 750 Mg Tab.Chew) 750 mg PO Q4H PRN PRN Reason: Heartburn Clonidine HCl (Clonidine Hcl 0.1 Mg Tablet) 0.3 mg PO TID [facility]; Protocol Last Admin: 07/14/24 08:29 Dose: 0.3 mg Documented By: YANETH Doxazosin Mesylate (Doxazosin Mesylate 2 Mg Tablet) 4 mg PO DAILY [facility]; Protocol Last Admin: 07/14/24 08:31 Dose: 4 mg Documented By: YANETH Enoxaparin Sodium (Enoxaparin Sodium 40 Mg/0.4 Ml Syringe) 40 mg SUBCUT Q24H [facility] Last Admin: 07/13/24 13:30 Dose: 40 mg Documented By: YANETH Furosemide (Furosemide 20 Mg Tablet) 20 mg PO DAILY [facility]; Protocol Last Admin: 07/14/24 08:31 Dose: 20 mg Documented By: YANETH Doxycycline Hyclate 100 mg/ (Sodium Chloride) 250 mls @ 166.67 mls/hr IV Q12H [facility] Last Infusion: 07/14/24 11:03 Dose: Infused Documented By: YANETH Ibuprofen (Ibuprofen 800 Mg Tablet) 800 mg PO Q8H PRN PRN Reason: Pain, Mild (Pain Scale 1-3) Insulin Human Lispro (Insulin Lispro 100 Unit/Ml 3 Ml Vial) 0 unit SUBCUT QIDACHS [facility]; Protocol Last Admin: 07/14/24 12:06 Dose: Not Given Documented By: YANETH Non-Admin Reason: Patient Refused Levofloxacin (Levofloxacin 250 Mg Tablet) 250 mg PO DAILY [facility] Last Admin: 07/14/24 08:30 Dose: 250 mg Documented By: YANETH Losartan Potassium (Losartan Potassium 50 Mg Tablet) 50 mg PO BID [facility]; Protocol Last Admin: 07/14/24 08:29 Dose: 50 mg Documented By: YANETH Magnesium Hydroxide (Milk Of Magnesia 30 Ml Oral.Susp) 30 ml PO DAILY PRN PRN Reason: Constipation Melatonin (Melatonin 3 Mg Tablet) 6 mg PO BEDTIME PRN PRN Reason: Insomnia Methocarbamol (Methocarbamol 500 Mg Tablet) 500 mg PO TID PRN PRN Reason: Muscle Spasm Ondansetron HCl (Ondansetron Hcl 4 Mg/2 Ml Vial) 4 mg IVPUSH Q8H PRN PRN Reason: Nausea and Vomiting Oxycodone HCl (Oxycodone Hcl Immed Release 5 Mg Tablet) 5 mg PO Q4H PRN PRN Reason: Pain, Severe (Pain Scale 7-10) Last Admin: 07/14/24 08:28 Dose: 5 mg Documented By: YANETH Potassium Chloride (Potassium Chloride Er 20 Meq Tab.Er.Prt) 20 meq PO DAILY [facility] Last Admin: 07/14/24 08:31 Dose: 20 meq Documented By: YANETH Sodium Chloride (0.9 % Sodium Chloride Flush 3 Ml Syringe) 3 ml IVFLUSH QSHIFT [facility] Last Admin: 07/14/24 08:35 Dose: 3 ml Documented By: YANETH Tramadol HCl (Tramadol Hcl 50 Mg Tablet) 50 mg PO BID PRN PRN Reason: Pain, Moderate(Pain Scale 4-6) Last Admin: 07/12/24 23:08 Dose: 50 mg Documented By: CRUZ Vitamin D (Cholecalciferol (Vitamin D3) 25 Mcg Tablet) 25 mcg PO DAILY [facility] Last Admin: 07/14/24 08:30 Dose: 25 mcg Documented By: YANETH Labs 07/14/24 06:10 07/14/24 06:10 Labs: Laboratory Results - last 24 hr 07/13/24 07/13/24 07/14/24 16:08 20:53 06:10 MCV 88.1 MCH 29.9 MCHC 33.9 RDW 13.0 Plt Count 218 MPV 9.9 Absolute Nucleated RBC 0.000 Nucleated RBC % (auto) 0.0 Anion Gap 15 Estim Creat Clear Calc 89.4 Estimated GFR > 60 POC Glucose 126 H 146 H Random Glucose 159 H Calcium 9.3 07/14/24 07/14/24 07:46 11:50 MCV MCH MCHC RDW Plt Count MPV Absolute Nucleated RBC Nucleated RBC % (auto) Anion Gap Estim Creat Clear Calc Estimated GFR POC Glucose 162 H 173 H Random Glucose Calcium Microbiology Microbiology Results: Microbiology 07/12/24 08:07 Blood Culture - Preliminary Blood - Venous No growth after 48 hours. 07/12/24 08:10 Blood Culture - Preliminary Blood - Venous No growth after 48 hours. Procedures Date of Service Date of Service: 07/14/24 Progress Note: A&P Assessment and plan (1) Wound of lower extremity: Status: Acute Plan Patient was encouraged elevate extremities was much as possible. I discussed with the nurse that patient may shower with dressings off to clean the wounds and then reapply dressings postprocedure. Patient would like to do this. The meantime, continue local therapy, IV antibiotics, local wound care Time Spent With Patient Time: Total time managing care of this patient today ____ minutes. Quality Stroke Does the patient have a stroke diagnosis?: No VTE Prior VTE?: No VTE Risk Level:: Medical - moderate - high VTE Device Contraindication: Treatment Not Indicated VTE Drug Contraindication: N/A - Med Ordered
[2024-07-14 16:18] LABS: Glucose, Whole Blood 156 mg/dL (60-115)
[2024-07-14] MEDS: Enoxaparin Sodium 40 MG/0.4 ML SYRINGE SUBCUT (17:25)
[2024-07-14] MEDS: Doxycycline Hyclate 100 MG in 0.9 % Sodium Chloride 250 ML 166.67 MG IV (18:31)
[2024-07-14 20:53] LABS: Glucose, Whole Blood 169 mg/dL (60-115)
[2024-07-15] VITALS: BP 142/89; PULSE 65; RESP 17; TEMP 36.2; O2SAT 97
[2024-07-15 04:00] VITALS: BP 169/89; PULSE 63; RESP 17; TEMP 36.1; O2SAT 96
[2024-07-15] MEDS: oxyCODONE HCl Immed Release 5 MG TABLET PO ×3 (06:13→15:39)
[2024-07-15] MEDS: Doxycycline Hyclate 100 MG in 0.9 % Sodium Chloride 250 ML 166.67 MG IV (06:13)
[2024-07-15 07:47] LABS: Glucose, Whole Blood 151 mg/dL (60-115)
[2024-07-15 08:00] VITALS: BP 145/80; PULSE 63; RESP 14; TEMP 36.2; O2SAT 97
[2024-07-15] MEDS: 0.9 % Sodium Chloride Flush 3 ML SYRINGE IVFLUSH ×2 (08:18→15:41)
[2024-07-15] MEDS: levoFLOXacin 250 MG TABLET PO (08:19)
[2024-07-15] MEDS: Furosemide 20 MG TABLET PO (08:19)
[2024-07-15] MEDS: Potassium Chloride ER 20 MEQ TAB.ER.PRT PO (08:19)
[2024-07-15] MEDS: Aspirin Enteric Coated 81 MG TABLET.DR PO (08:20)
[2024-07-15] MEDS: Cholecalciferol (Vitamin D3) 25 MCG TABLET PO (08:20)
[2024-07-15] MEDS: Losartan Potassium 50 MG TABLET PO (08:20)
[2024-07-15] MEDS: Doxazosin Mesylate 2 MG TABLET 4 MG PO (08:20)
[2024-07-15] MEDS: cloNIDine HCL 0.1 MG TABLET 0.3 MG PO ×2 (08:20→15:39)
[2024-07-15] MEDS: traMADoL HCL 50 MG TABLET PO (09:13)
--- NOTE | 2024-07-15 09:20 | PM.CNNEP ---
History of Present Illness Reason for Consult Consult date: 07/15/24 Chief Complaint Chief complaint: hypertensive urgency History of Present Illness Narrative: This is a 69 y/o female with HTN, DMII, Venous ulcers follows w wound care who presented to the [facility] with worsening wound pain, had HTN urgency on arrival (210/120) pt reports she was taking clonidine 0.1mg TID at home as only blood pressure medication currently taking clondidine 0.3mg TID, furosemide 20mg daily, losartan 50mg PO BID, doxazosin 4mg daily also receiving 20meq daily potassium replacement Of note, pt states she was having chronic diarrhea/loose stools from metformin before hospitalization, though reports this has resolved her blood pressures have been in 140s-160s over last day or so with new regimen she states today she is feeling well, has some pain in her lower extremities from recent wound debriedment, otherwise no complaints denies shortness of breath, chest pain, dizziness, headache passing urine no significant/new LE swelling Review of Systems Constitutional: Denies anorexia, Denies fever(s) and Denies weakness Cardiovascular: Denies no additional cardiovascular complaints and Denies dyspnea Respiratory: Reports no additional respiratory complaints and Denies dyspnea Gastrointestinal: Denies diarrhea Genitourinary: Denies hematuria Musculoskeletal: Denies tingling Skin/Breast: Denies rash Denies focal weakness, Denies tingling, Denies tremor(s) and Denies weakness PMFSH Past Medical History Medical History Chronic ulcer of left ankle Diabetes Hypertension Abnormal Pap smear of cervix Diabetes mellitus Hypertension Renal calculi Diastasis recti Dyslipidemia associated with type 2 diabetes mellitus Abdominal mass Microalbuminuria Renal calculi Morbid obesity Family History Family History Father Seizures Mother Seizures Congenital heart disease in adult Hypotension Maternal Grandfather Leukemia Surgical History Surgical History Hx of prior ablation treatment Social History Social History Household Members: Family Housing: House Do you presently have visiting nurse or other home services: No Alcohol intake: current Alcohol intake frequency: holidays/special occasions only Alcohol type: wine Patient Tobacco Use Status: Former Tobacco user Tobacco use type: Cigarette e-Cigarette/Vaping Use: Never Used Second Hand Smoke Exposure: No Substance Use Type: Other service: No Current occupational status: employed Current occupational exposures/hazards: No Meds Allergies Allergy/AdvReac Type Severity Reaction Status Date / Time amlodipine Allergy Intermediate drowsiness, Verified 07/12/24 06:46 swelling of feet and ankles lisinopril Allergy Intermediate cough Verified 07/12/24 06:46 hydralazine Allergy Swelling Verified 07/12/24 06:46 metformin AdvReac Diarrhea Verified 07/12/24 06:46 Lisinopril-Hydrochlorothiazide AdvReac Intermediate Leg Uncoded 07/01/24 15:57 swelling Metoprolol Tartrate AdvReac Intermediate Leg Uncoded 07/01/24 15:57 swelling Active Medications: Current Medications Acetaminophen (Acetaminophen 325 Mg Tablet) 650 mg PO Q6H PRN PRN Reason: Pain, Mild (Pain Scale 1-3), fever or headache Albuterol Sulfate (Albuterol Sulfate 90 Mcg 8 Gm Inhaler) 2 puff INHALE Q6H PRN PRN Reason: Wheezing Aspirin (Aspirin Enteric Coated 81 Mg Tablet.Dr) 81 mg PO DAILY [facility] Last Admin: 07/15/24 08:20 Dose: 81 mg Calcium Carbonate (Calcium Carbonate 750 Mg Tab.Chew) 750 mg PO Q4H PRN PRN Reason: Heartburn Clonidine HCl (Clonidine Hcl 0.1 Mg Tablet) 0.3 mg PO TID [facility]; Protocol Last Admin: 07/15/24 08:20 Dose: 0.3 mg Doxazosin Mesylate (Doxazosin Mesylate 2 Mg Tablet) 4 mg PO DAILY [facility]; Protocol Last Admin: 07/15/24 08:20 Dose: 4 mg Doxycycline Monohydrate (Doxycycline Monohydrate 100 Mg Capsule) 100 mg PO BID [facility] Enoxaparin Sodium (Enoxaparin Sodium 40 Mg/0.4 Ml Syringe) 40 mg SUBCUT Q24H [facility] Last Admin: 07/14/24 17:25 Dose: 40 mg Furosemide (Furosemide 20 Mg Tablet) 20 mg PO DAILY [facility]; Protocol Last Admin: 07/15/24 08:19 Dose: 20 mg Doxycycline Hyclate 100 mg/ (Sodium Chloride) 250 mls @ 166.67 mls/hr IV Q12H [facility] Stop: 07/15/24 11:00 Last Infusion: 07/15/24 08:25 Dose: Infused Ibuprofen (Ibuprofen 800 Mg Tablet) 800 mg PO Q8H PRN PRN Reason: Pain, Mild (Pain Scale 1-3) Insulin Human Lispro (Insulin Lispro 100 Unit/Ml 3 Ml Vial) 0 unit SUBCUT QIDACHS [facility]; Protocol Last Admin: 07/15/24 08:18 Dose: Not Given Levofloxacin (Levofloxacin 250 Mg Tablet) 250 mg PO DAILY [facility] Last Admin: 07/15/24 08:19 Dose: 250 mg Losartan Potassium (Losartan Potassium 50 Mg Tablet) 50 mg PO BID [facility]; Protocol Last Admin: 07/15/24 08:20 Dose: 50 mg Magnesium Hydroxide (Milk Of Magnesia 30 Ml Oral.Susp) 30 ml PO DAILY PRN PRN Reason: Constipation Melatonin (Melatonin 3 Mg Tablet) 6 mg PO BEDTIME PRN PRN Reason: Insomnia Methocarbamol (Methocarbamol 500 Mg Tablet) 500 mg PO TID PRN PRN Reason: Muscle Spasm Ondansetron HCl (Ondansetron Hcl 4 Mg/2 Ml Vial) 4 mg IVPUSH Q8H PRN PRN Reason: Nausea and Vomiting Oxycodone HCl (Oxycodone Hcl Immed Release 5 Mg Tablet) 5 mg PO Q4H PRN PRN Reason: Pain, Severe (Pain Scale 7-10) Last Admin: 07/15/24 06:13 Dose: 5 mg Potassium Chloride (Potassium Chloride Er 20 Meq Tab.Er.Prt) 20 meq PO DAILY [facility] Last Admin: 07/15/24 08:19 Dose: 20 meq Sodium Chloride (0.9 % Sodium Chloride Flush 3 Ml Syringe) 3 ml IVFLUSH QSHIFT [facility] Last Admin: 07/15/24 08:18 Dose: 3 ml Tramadol HCl (Tramadol Hcl 50 Mg Tablet) 50 mg PO BID PRN PRN Reason: Pain, Moderate(Pain Scale 4-6) Last Admin: 07/15/24 09:13 Dose: 50 mg Vitamin D (Cholecalciferol (Vitamin D3) 25 Mcg Tablet) 25 mcg PO DAILY [facility] Last Admin: 07/15/24 08:20 Dose: 25 mcg Home Medications ?Medication ?Instructions ?Recorded ?Confirmed ?Last Taken ?Type albuterol sulfate 90 mcg/actuation 2 puff inhalation Q6H PRN Wheezing 02/10/21 07/12/24 07/12/24 History aerosol inhaler cholecalciferol (vitamin D3) 25 25 mcg PO DAILY 01/11/24 07/12/24 07/12/24 History mcg (1,000 unit) tablet clonidine HCl 0.1 mg tablet 0.2 mg PO TID 07/12/24 07/12/24 07/12/24 History metformin 500 mg tablet 500 mg PO BID 07/12/24 07/12/24 07/12/24 History Physical Exam Vital Signs: Last Vital Signs Temp 97.2 F 07/15/24 08:00 Pulse 63 07/15/24 08:00 Resp 14 07/15/24 08:00 BP 145/80 H 07/15/24 08:00 Pulse Ox 97 07/15/24 08:00 O2 Del Method Room Air 07/15/24 08:00 BMI result Body Mass Index 42.6 Const General: comfortable and no acute distress Orientation/consciousness: oriented to person, oriented to place and oriented to time Neck Neck: Yes no JVD Resp Effort & Inspection: able to speak in complete sentences Auscultation: clear to auscultation bilaterally Cardio Jugular venous distension: no JVD Rate: regular rate Rhythm: regular rhythm Heart sounds: S1 normal heart sound present and S2 normal heart sound present GI Palpation (GI): Soft to palpation Rectal Exam - Female: No tenderness General: Yes no CVA tenderness Back/Spine/Pelvis Back: no CVA tenderness Skin Rashes: no rashes Neuro General: oriented to person, oriented to place and oriented to time Extrem General: Yes normal to inspection, No edema and No pedal edema Results Lab Results 07/14/24 06:10 07/14/24 06:10 Lab results: Chemistry 07/13/24 07/14/24 07:08 06:10 Sodium 140 139 Potassium 3.1 L 3.5 Carbon Dioxide 28 26 BUN 12 12 Creatinine 0.91 0.82 Calcium 9.0 9.3 Hematology 07/14/24 06:10 WBC 7.2 Hgb 11.5 L Plt Count 218 Assessment and Plan (1) Hypertensive urgency: Status: Acute Plan Hypertensive urgency improving with current medication regimen recommend discontinue doxazosin and furosemide continue losartan 50mg PO BID recommend adding carvedilol 6.25mg BID and taper up as needed to optimize BP; should taper down clonidine as titrate up on carvedilol She should follow up with nephrology and/or PCP outpatient for continued monitoring and optimization of blood pressures. Discussed with Dr Etienne Procedures Date of Service Date of Service: 07/15/24
--- NOTE | 2024-07-15 11:15 | MHC.CM.PN ---
Addendum entered by Molly Turner RN 07/15/24 11:19: Additionally, patient requesting meeting w/ FS. Reports she had an appt scheduled, but had to miss it. Referral to FS w/ request to meet with patient prior to dc. Original Note: Per MD rounds patient medically cleared for dc home w/ new VNA for SN/wound care through [facility]. CM also LM for wound clinic to schedule sooner f/u, as patient has an appt booked 6 weeks out. Patient reports she has also reached out to wound clinic. Daughter will provide transport home ~4:30pm. RN aware. IMM delivered.
[2024-07-15 11:35] LABS: Glucose, Whole Blood 156 mg/dL (60-115)
[2024-07-15 12:19] VITALS: BP 144/78; PULSE 72; RESP 16; TEMP 36.4; O2SAT 97
[2024-07-15] MEDS: carvediloL 6.25 MG TABLET PO (12:25)
[2024-07-15] MEDS: Ibuprofen 800 MG TABLET PO (12:25)
--- NOTE | 2024-07-15 12:33 | P.DS_ITS ---
DS: Providers Provider Date of Service: 07/15/24 Date of admission: 07/12/24 14:20 Date of discharge: 07/15/24 Primary care physician: Lillian Velasco MD Consults: 07/12/24 14:02 Consult to Wound Care Routine Reason for consultation: bilateral lower extremities wounds with bad odor 07/12/24 14:39 Consult to General Surgery Routine Consulting Provider: [facility] Reason for consultation: debridement for chronic wound with ischar and foul smell? 07/14/24 07:51 Consult to Nephrology Routine Consulting Provider: [facility] Reason for consultation: Resistent Hypertension, multiple drug allergies DS: Diagnosis Discharge Diagnosis (1) Hypertensive urgency: Status: Acute (2) Wound of lower extremity: Status: Acute (3) Venous stasis ulcer: Status: Acute DS: Summary Hospital Course Hospital Course: Admission note HPI A 69 years old lady with PMH of HTN, DMII, Venous ulcers follows w wound care who presents to the hospital with reported worsens wounds over last month with increase pain. The patient denies fever, chills, chest pain, palpitations, SOB, nausea, vomiting, diarrhea or urinary symptoms. She has been following with her PCP and seen VNA at home for wound care. supposed to start wound clinic in couple of weeks. She thinks he wounds are progressively getting worse. reporting foul smelling and pain. She was noted to have significantly elevated blood pressure. she feels overall unwell and tired. she is not sleeping well as well. Received IV Labtelol along with PO Clonidine multiple doses with better control as she was at 210/120 on presentation. improved to 190/110. Admitted for further eval and treatment. Hospital course The patient was treated for: # Hypertensive urgency The patient was on Clonidine only at home as she has multiple drug allergies. Started on Losartan as dose increased to 50 mg bid along with Doxazosin 4 mg daily and Lasix 20 mg daily. Clonidine was resumed at higher dose of 0.3mg tid. Blood pressure significantly improved and new medications tolerated well. Seen by cushion cover inspector who suggested Discharging the patient on Clonidine 0.2 mg TID home dose and adding Losartan 50 mg bid and Starting Carvedilol 6.25 mg bid. She will be followed by dr Sanchez as outpatient. # Venous ulcer in type 2 DM, continue local measures as she was treated with IV Doxycycline along w levaquin PO. Seen by surgical team who did bedside debridement and recommended outpatient follow up with wound clinic. # Acute hypokalemia, replacement given # Morbid obesity, advised weight loss Discharge plan Start Carvedilol 6.25 mg twice daily Start Losartan 50 mg twice daily Continue Clonidine 0.2 mg three times a day Monitor your blood pressure at home and report 1 week readings to PCP/Nephrology for further adjustments in your medications Continue Levaquin and Doxycycline for another week Visiting nurse will follow with you for wound care. To follow with wound clinic on the long run as well. Encouraged showers with wound open to cleanse site. continue dry dressing to wound sites followed by kerlix wrap . Encouraged legs elevation. Time Attestation Discharge Coordination Time (in mins): 43 Quality: Safe Use of Opioids Does Pt have an Active Cancer Diagnosis on the Problem List?: No Quality: Stroke Does the patient have a stroke diagnosis?: No Physical Exam Vital Signs: Vital Signs: Last Vital Signs Temp 97.5 F 07/15/24 12:19 Pulse 72 07/15/24 12:19 Resp 16 07/15/24 12:19 BP 144/78 H 07/15/24 12:19 Pulse Ox 97 07/15/24 12:19 O2 Del Method Room Air 07/15/24 12:19 BMI result Body Mass Index 42.6 Const: Other: Constitutional : Awake, interactive, not in distress Neck : Normal inspection, Supple Cardiovascular : RRR, no JVP, no lower extremity edema Respiratory : good bilateral air entry, no crackles, wheezes or rhonchi Gastrointestinal: soft, lax, Normal bowel sounds, Non tender Skin : Warm, Dry, chronic venous wound with no significant erythema or odor as before, no tenderness or warmth bilaterally, covered with dressing. Rt ankle medial eschar left intact. Left ankle Dry eschar left intact Neurological : Alert & oriented x3, No focal deficit DS: Data Data Completed and Pending Labs on day of discharge: Laboratory Results - last 24 hr 07/14/24 07/14/24 07/15/24 16:06 20:47 07:36 POC Glucose 156 H 169 H 151 H 07/15/24 11:31 POC Glucose 156 H Preliminary micro results at discharge 07/12/24 08:07 Blood Culture - Preliminary Blood - Venous No growth after 48 hours. 07/12/24 08:10 Blood Culture - Preliminary Blood - Venous No growth after 48 hours. Discharge Plan Discharge Anticipated Discharge Date/Time: 07/15/24 12:19 Patient Disposition: Home Health Service Discharge Diagnosis: Hypertensive urgency Venous stasis ulcer Referrals: [facility] [Outside] - 3-5 Days (Justin will call you to schedule nursing visits) Lillian Quiñones MD [Primary Care Provider] - 1 Week Discharge Medications: New losartan 50 mg Tablet 50 mg PO BID Qty: 180 0RF Protocol: Hold for SBP< HOLD for SBP < : 90 carvedilol 6.25 mg Tablet 6.25 mg PO BID Qty: 180 1RF Protocol: Hold for SBP/HR < HOLD for SBP < : 90 HOLD for HR < : 60 doxycycline monohydrate 100 mg Capsule 100 mg PO BID Qty: 14 0RF Continued potassium chloride 20 mEq tablet extended release 20 meq PO DAILY Qty: 14 0RF tramadol 50 mg tablet 50 mg PO BID PRN (Reason: pain) Qty: 7 0RF cholecalciferol (vitamin D3) 25 mcg (1,000 unit) Tablet 25 mcg PO DAILY metformin 500 mg tablet 500 mg PO BID clonidine HCl 0.1 mg tablet 0.2 mg PO TID levofloxacin 250 mg tablet 250 mg PO DAILY Qty: 7 0RF albuterol sulfate 90 mcg/actuation HFA aerosol inhaler 2 puff inhalation Q6H PRN (Reason: Wheezing) aspirin [Adult Aspirin Regimen] 81 mg tablet,delayed release (DR/EC) 81 mg PO DAILY 90 Days Qty: 90 2RF (DME) compr.stocking,knee,long,large Misc See Rx Instructions .ROUTE .MEDSUPPLY Qty: 2 0RF Rx Instructions: As directed ibuprofen 800 mg tablet 800 mg PO Q8H PRN (Reason: pain) Qty: 20 1RF methocarbamol 500 mg tablet 500 mg PO TID PRN (Reason: pain) Qty: 20 0RF Discharge Orders: Discharge Order (Routine); Ordered 07/15/24 Ordered By: Elise Barrow Diet: Low salt diet Activity on Discharge: As tolerated Stand Alone Forms: Patient Portal Discharge page Print Language: Nigerien Activity Restrictions/Additional Instructions: Encouraged showers with wound open to cleanse site. continue dry dressing to wound sites followed by kerlix wrap . Encouraged legs elevation. Care Plan Goals: Start Carvedilol 6.25 mg twice daily Start Losartan 50 mg twice daily Continue Clonidine 0.2 mg three times a day Monitor your blood pressure at home and report 1 week readings to PCP/Nephrology for further adjustments in your medications Continue Levaquin and Doxycycline for another week Visiting nurse will follow with you for wound care. To follow with wound clinic on the long run as well. Health Concerns: Uncontrolled hypertension Venous stasis ulcer Plan of Treatment: Antibiotics wound care Assessment: Read below Patient Instructions: Doxycycline (By mouth), Hypertensive Crisis (DC), Chronic Wounds (DC) Discharge Date/Time: 07/15/24 17:18
--- NOTE | 2024-07-15 12:59 | W.MHC.F2F ---
Service Date Service Date: 07/15/24 Encounter Date of encounter: 07/15/24 Reasons for Services Signs and symptoms assessed: Uncontrolled HTN Venous ulcers Reason for assisted: wound care ( Encouraged showers with wound open to cleanse site. continue dry dressing to wound sites followed by kerlix wrap . Encouraged legs elevation. ), teach disease management and other (Monitor uncontrolled HTN ) Homebound: Leaving the home is medically contraindicated at this time without the asist of a device and/or another person due th the listed conditions above and below. Reason homebound: unable to drive Certification: Based on the above findings, I certify that this patient is confined to the home and needs intermittent assisted care, physical therapy and/or speech therapy, or continues to need occupational therapy. The patient is under my care, and I have initiated the establishment of the plan of care. The patient will be followed by a physician who will periodically review the plan of care. Time Spent With Patient Time: Total time managing care of this patient today ____ minutes.
--- NOTE | 2024-07-15 13:19 | PM.PNGS ---
Subjective Subjective Date of Service: 07/15/24 Physical Exam Vital Signs: Vital Signs: Last Vital Signs Temp 97.5 F 07/15/24 12:19 Pulse 72 07/15/24 12:19 Resp 16 07/15/24 12:19 BP 144/78 H 07/15/24 12:19 Pulse Ox 97 07/15/24 12:19 O2 Del Method Room Air 07/15/24 12:19 BMI result Body Mass Index 42.6 Const: General: comfortable, no acute distress and alert Orientation/consciousness: patient oriented x3 Skin: Other: left lower extremity lateral aspect open wound with some granulation, some fibrous exudate of wound base, no further necrosis or significant eschar right lower extremity medial aspect with small debrided area with pale appearing subq tissue, dry eschar persists Neuro: General: patient oriented x3 and moves all extremities Objective Data Active Medications Acetaminophen (Acetaminophen 325 Mg Tablet) 650 mg PO Q6H PRN PRN Reason: Pain, Mild (Pain Scale 1-3), fever or headache Albuterol Sulfate (Albuterol Sulfate 90 Mcg 8 Gm Inhaler) 2 puff INHALE Q6H PRN PRN Reason: Wheezing Aspirin (Aspirin Enteric Coated 81 Mg Tablet.Dr) 81 mg PO DAILY [facility] Last Admin: 07/15/24 08:20 Dose: 81 mg Documented By: TIFFANY Calcium Carbonate (Calcium Carbonate 750 Mg Tab.Chew) 750 mg PO Q4H PRN PRN Reason: Heartburn Carvedilol (Carvedilol 6.25 Mg Tablet) 6.25 mg PO BID [facility]; Protocol Last Admin: 07/15/24 12:25 Dose: 6.25 mg Documented By: TIFFANY Clonidine HCl (Clonidine Hcl 0.1 Mg Tablet) 0.3 mg PO TID [facility]; Protocol Last Admin: 07/15/24 08:20 Dose: 0.3 mg Documented By: TIFFANY Doxycycline Monohydrate (Doxycycline Monohydrate 100 Mg Capsule) 100 mg PO BID [facility] Enoxaparin Sodium (Enoxaparin Sodium 40 Mg/0.4 Ml Syringe) 40 mg SUBCUT Q24H [facility] Last Admin: 07/14/24 17:25 Dose: 40 mg Documented By: YANETH Ibuprofen (Ibuprofen 800 Mg Tablet) 800 mg PO Q8H PRN PRN Reason: Pain, Mild (Pain Scale 1-3) Last Admin: 07/15/24 12:25 Dose: 800 mg Documented By: TIFFANY Insulin Human Lispro (Insulin Lispro 100 Unit/Ml 3 Ml Vial) 0 unit SUBCUT QIDACHS [facility]; Protocol Last Admin: 07/15/24 11:37 Dose: Not Given Documented By: TIFFANY Non-Admin Reason: Patient Refused Levofloxacin (Levofloxacin 250 Mg Tablet) 250 mg PO DAILY [facility] Last Admin: 07/15/24 08:19 Dose: 250 mg Documented By: TIFFANY Losartan Potassium (Losartan Potassium 50 Mg Tablet) 50 mg PO BID [facility]; Protocol Last Admin: 07/15/24 08:20 Dose: 50 mg Documented By: TIFFANY Magnesium Hydroxide (Milk Of Magnesia 30 Ml Oral.Susp) 30 ml PO DAILY PRN PRN Reason: Constipation Melatonin (Melatonin 3 Mg Tablet) 6 mg PO BEDTIME PRN PRN Reason: Insomnia Methocarbamol (Methocarbamol 500 Mg Tablet) 500 mg PO TID PRN PRN Reason: Muscle Spasm Ondansetron HCl (Ondansetron Hcl 4 Mg/2 Ml Vial) 4 mg IVPUSH Q8H PRN PRN Reason: Nausea and Vomiting Oxycodone HCl (Oxycodone Hcl Immed Release 5 Mg Tablet) 5 mg PO Q4H PRN PRN Reason: Pain, Severe (Pain Scale 7-10) Last Admin: 07/15/24 11:16 Dose: 5 mg Documented By: TIFFANY Potassium Chloride (Potassium Chloride Er 20 Meq Tab.Er.Prt) 20 meq PO DAILY [facility] Last Admin: 07/15/24 08:19 Dose: 20 meq Documented By: TIFFANY Sodium Chloride (0.9 % Sodium Chloride Flush 3 Ml Syringe) [facility] Admin: 07/15/24 08:18 Dose: 3 ml Documented By: TIFFANY Tramadol HCl (Tramadol Hcl 50 Mg Tablet) 50 mg PO BID PRN PRN Reason: Pain, Moderate(Pain Scale 4-6) Last Admin: 07/15/24 09:13 Dose: 50 mg Documented By: TIFFANY Vitamin D (Cholecalciferol (Vitamin D3) 25 Mcg Tablet) 25 mcg PO DAILY [facility] Last Admin: 07/15/24 08:20 Dose: 25 mcg Documented By: TIFFANY Labs 07/14/24 06:10 07/14/24 06:10 Labs: Laboratory Results - last 24 hr 07/14/24 07/14/24 07/15/24 16:06 20:47 07:36 POC Glucose 156 H 169 H 151 H 07/15/24 11:31 POC Glucose 156 H Microbiology Microbiology Results: Microbiology 07/12/24 08:07 Blood Culture - Preliminary Blood - Venous No growth after 48 hours. 07/12/24 08:10 Blood Culture - Preliminary Blood - Venous No growth after 48 hours. Procedures Date of Service Date of Service: 07/15/24 Progress Note: A&P Assessment and plan (1) Wound of lower extremity: Status: Acute (2) Venous stasis ulcer: Status: Acute Plan Chronic b/l lower extremity wounds- cont wet to dry dressing changes daily. Has remaining eschar of right leg which is dry and will likely need further debridement but patient not tolerating today. Hopefully can transition to silver alginate to left wound base soon. Will need follow up in wound care center. Time Spent With Patient Time: Total time managing care of this patient today ____ minutes. Quality Stroke Does the patient have a stroke diagnosis?: No VTE Prior VTE?: No VTE Risk Level:: Medical - moderate - high VTE Device Contraindication: Treatment Not Indicated VTE Drug Contraindication: N/A - Med Ordered
[2024-07-15] MEDS: Enoxaparin Sodium 40 MG/0.4 ML SYRINGE SUBCUT (13:44)
[2024-07-15 15:39] VITALS: BP 140/78
[2024-07-15 15:47] VITALS: BP 140/72; PULSE 60; RESP 16; TEMP 36.6; O2SAT 94
[2024-07-15 16:26] LABS: Glucose, Whole Blood 125 mg/dL (60-115)
== END 2024-07-15 17:18 | disposition home health service (06) | DRG 300 ==
LOC: HO.ED 12:30 → HO.EDOVER 14:11 → HO.IMC 19:18 → HO.S3 07-14 17:16
PROVIDERS: Physician Assistant; Admitting Provider Student in an Organized Health Care Education/Training Program; Emergency Provider Student in an Organized Health Care Education/Training Program; PCP Internal Medicine; Visit Provider Student in an Organized Health Care Education/Training Program
DX: E11.52 Type 2 diabetes mellitus with diabetic peripheral angiopathy with gangrene (principal); L97.319 Non-pressure chronic ulcer of right ankle with unspecified severity; Z68.41 Body mass index [BMI] 40.0-44.9, adult; L97.329 Non-pressure chronic ulcer of left ankle with unspecified severity; I16.0 Hypertensive urgency; I10 Essential (primary) hypertension; E66.01 Morbid (severe) obesity due to excess calories; I87.2 Venous insufficiency (chronic) (peripheral); Z71.3 Dietary counseling and surveillance; E87.6 Hypokalemia; Z87.891 Personal history of nicotine dependence; Z79.82 Long term (current) use of aspirin; Z79.84 Long term (current) use of oral hypoglycemic drugs; Z79.899 Other long term (current) drug therapy
CPT/HCPCS: 36415; 80048; 80053; 82947; 83605; 83735; 84484; 85025; 85027; 85652; 86140; 87040; 93005; 99285; J0696; J1171; J1650; J1920; J2270

== ENCOUNTER → 2024-07-12 14:20 | Outpatient (BNV) | payer SELFPAY | PROVIDERS: Admitting Provider Student in an Organized Health Care Education/Training Program; Emergency Provider Student in an Organized Health Care Education/Training Program; PCP Internal Medicine; Visit Provider Nurse Practitioner Family | DX: I16.0 Hypertensive urgency (principal) | CPT/HCPCS: 99222 ==

== ENCOUNTER → 2024-07-12 14:20 | Outpatient (BNV) | payer SELFPAY | PROVIDERS: Admitting Provider Student in an Organized Health Care Education/Training Program; Emergency Provider Student in an Organized Health Care Education/Training Program; PCP Internal Medicine; Visit Provider Surgery | DX: S81.809A Unspecified open wound, unspecified lower leg, initial encounter (principal); I83.009 Varicose veins of unspecified lower extremity with ulcer of unspecified site; L97.909 Non-pressure chronic ulcer of unspecified part of unspecified lower leg with unspecified severity | CPT/HCPCS: 97597; 99222; 99232 ==

== ENCOUNTER → 2024-07-12 14:20 | Outpatient (BNV) | payer SELFPAY | PROVIDERS: Admitting Provider Student in an Organized Health Care Education/Training Program; Emergency Provider Student in an Organized Health Care Education/Training Program; PCP Internal Medicine; Visit Provider Student in an Organized Health Care Education/Training Program | DX: I16.0 Hypertensive urgency (principal); E11.622 Type 2 diabetes mellitus with other skin ulcer; I83.009 Varicose veins of unspecified lower extremity with ulcer of unspecified site | CPT/HCPCS: 99223; 99232; 99239; 99499; G0180 ==

== ENCOUNTER 2024-07-19 09:35 | Emergency (ER) | payer SELFPAY ==
[2024-07-19 09:47] VITALS: BP 188/109; PULSE 91; RESP 18; TEMP 36.2; O2SAT 98; BMI 39.5
--- NOTE | 2024-07-19 11:00 | ED.LOWEXIN ---
HPI - Extremity Injury (Lower) General Chief Complaint: Extremity Injury, Lower Stated Complaint: Bilateral foot pain Time Seen by Provider: 07/19/24 10:04 Source: patient Mode of arrival: ambulatory Limitations: no limitations History of Present Illness ED Provider: KALIE WYNN PA-C HPI Narrative: 69 year old female with pmhx significant for HTN, T2DM, venous ulcers (follows with wound care and VNA) presents to the ED today for evaluation of pain to bilateral LE wounds since last night. Patient recently admitted to this hospital from 07/12/24-07/15/24 for chronic LE wounds requiring IV abx. She was discharge home with levquin and doxycycline x1 week which she has been taking as presribed. She has not missed/ skipped any doses. She tells me her pain was well controlled on morphine, oxy, and tramadol while hospitalized however was discharged home with only Tylenol. Tylenol seems to keep her pain around a 6/10 at home until she has to change her dressings. She states dressing changes are extremely painful, almost unbearable. She had her VNA come yesterday and attempted to changed the dressings however she was out of saline, making the dressing change even more unbearable. She does not feel as though the wounds are worsening. Infact states they are improving. Her only concern at present is getting her pain under control. Denies fever, chills, N/V. Related Data Home Medications ?Medication ?Instructions ?Recorded ?Confirmed albuterol sulfate 90 mcg/actuation 2 puff inhalation Q6H PRN Wheezing 02/10/21 07/16/24 aerosol inhaler cholecalciferol (vitamin D3) 25 25 mcg PO DAILY 01/11/24 07/16/24 mcg (1,000 unit) tablet clonidine HCl 0.1 mg tablet 0.2 mg PO TID 07/12/24 07/16/24 metformin 500 mg tablet 500 mg PO BID 07/12/24 07/16/24 Previous Rx's ?Medication ?Instructions ?Recorded aspirin 81 mg tablet,delayed 81 mg PO DAILY 90 days #90 tabs 02/10/21 release (Adult Aspirin Regimen) compr.stocking,knee,long,large #2 ea 03/11/21 potassium chloride 20 mEq 20 meq PO DAILY #14 tabs 07/09/24 tablet,extended release tramadol 50 mg tablet 50 mg PO BID PRN pain #7 tabs 07/09/24 ibuprofen 800 mg tablet 800 mg PO Q8H PRN pain #20 tabs 07/10/24 methocarbamol 500 mg tablet 500 mg PO TID PRN pain #20 tabs 07/10/24 carvedilol 6.25 mg tablet 6.25 mg PO BID #180 tabs 07/15/24 doxycycline monohydrate 100 mg 100 mg PO BID #14 caps 07/15/24 capsule levofloxacin 250 mg tablet 250 mg PO DAILY #7 tabs 07/15/24 losartan 50 mg tablet 50 mg PO BID #180 tabs 07/15/24 tramadol 50 mg tablet 50 mg PO Q8H PRN pain (scale score 07/19/24 7-10) #9 tabs Allergies Allergy/AdvReac Type Severity Reaction Status Date / Time amlodipine Allergy Intermediate drowsiness, Verified 07/19/24 09:51 swelling of feet and ankles lisinopril Allergy Intermediate cough Verified 07/19/24 09:51 hydralazine Allergy Swelling Verified 07/19/24 09:51 metformin AdvReac Diarrhea Verified 07/19/24 09:51 Lisinopril-Hydrochlorothiazide AdvReac Intermediate Leg Uncoded 07/19/24 09:51 swelling Metoprolol Tartrate AdvReac Intermediate Leg Uncoded 07/19/24 09:51 swelling Review of Systems Review of Systems: Yes all other systems are reviewed and are negative [facility] Past Medical History Attestation statement: The following information was validated with the patient. Source: old records reviewed and nursing notes reviewed Medical History Hypertension Wound of lower extremity Venous stasis ulcer Chronic ulcer of left ankle Diabetes Hypertension Abnormal Pap smear of cervix Diabetes mellitus Hypertension Renal calculi Diastasis recti Dyslipidemia associated with type 2 diabetes mellitus Abdominal mass Microalbuminuria Renal calculi Morbid obesity Surgical History Hx of prior ablation treatment Family History Family History Father Seizures Mother Seizures Congenital heart disease in adult Hypotension Maternal Grandfather Leukemia Social History Social History Household Members: Family Housing: House Do you presently have visiting nurse or other home services: No Alcohol intake: current Alcohol intake frequency: holidays/special occasions only Alcohol type: wine Patient Tobacco Use Status: Former Tobacco user Tobacco use type: Cigarette e-Cigarette/Vaping Use: Never Used Second Hand Smoke Exposure: No Substance Use Type: Other Advance Directives: No Advance Directives Information Provided: No Do you have a plan to hurt others: No Plan service: No Current occupational status: employed Current occupational exposures/hazards: No Physical Exam Vital Signs: Vital Signs: Last Vital Signs Temp 98.1 F 07/19/24 14:28 Pulse 72 07/19/24 14:28 Resp 16 07/19/24 14:28 BP 180/102 H 07/19/24 14:28 Pulse Ox 96 07/19/24 14:28 O2 Del Method Room Air 07/19/24 14:28 BMI result Body Mass Index 39.5 hypertensive, vitals otherwise wnl General: Well appearing, in no acute distress. Skin: +see skin exam of b/l LE below. chronic venous ulcers x2. RLE: LLE: Head: Normocephalic, atraumatic. EENT: Hearing is intact b/l. Conjunctiva clear. PERRLA. Moist mucous membranes.?? Cardiac: Chest wall symmetric. RRR. Lungs: Normal respiratory effort without accessory muscle use. CTA bilaterally Ext: +see above. 2+pt/dp pulses intact. ambulating with steady gait. Neuro: AOx3. Normal speech. Psych: Appropriate mood and affect. Responds appropriately to questions. Course Course Course Narrative: 1425 -- Patient hypertensive to 180s/100s. hx of hypertension, non compliant with medications. recently admitted for hypertensive urgency, discharge with carvedilol and losartan which she reports taking prior to arrival in ED. She has a history of medication noncompliance, specifically with her antihypertensives. i administered a second dose of losartan in ED without much improvement. she is asymptomatic - no NINO, dizziness, vision changes, chest pain, sob, etc. I believe her pain and the toradol I ordered earlier may be contributing to an already elevated bp. patient does not wish to stay in the ED for further medication administration. as bp appears to be around patient's baseline and she is asymptomatic, I feel comfortably discharging her home with strict return precautions. educated her on compliance with antihypertensives. She verbalizes understanding. > in the ED, her wounds were evaluated. No concerns for worsening infection at this time. Wounds were dressed appropriately with wet to dry dressings and overlying nonadhesive. Patient is currently completing Levaquin and doxycycline and following up with wound care/visiting nurse. Supplied patient with saline to take home along w/ script for tramadol for break through pain. Patient has remained stable throughout ED visit today. Discussed worrisome signs and symptoms and when to return to the ED. All questions answered at this time. Patient is agreeable with disposition and stable for discharge. Medications Administered Discontinued Medications Generic Name Dose Route Start Last Admin Trade Name Freq PRN Reason Stop Dose Admin Carvedilol 6.25 mg 07/19/24 12:49 07/19/24 12:59 Carvedilol 6.25 Mg Tablet PO 07/19/24 12:50 Not Given ONCE ONE Protocol Ketorolac Tromethamine 30 mg 07/19/24 11:13 07/19/24 11:17 Ketorolac Tromethamine 30 Mg/Ml Vial IM 07/19/24 11:14 30 mg ONCE ONE Administration Losartan Potassium 50 mg 07/19/24 12:49 07/19/24 13:10 Losartan Potassium 50 Mg Tablet PO 07/19/24 12:50 50 mg ONCE ONE Administration Protocol Tramadol HCl 50 mg 07/19/24 12:59 07/19/24 13:10 Tramadol Hcl 50 Mg Tablet PO 07/19/24 13:00 50 mg ONCE ONE Administration Medical Decision Making Medical Decision Making MDM Narrative: 69 year old female with pmhx significant for HTN, T2DM, venous ulcers (follows with wound care and VNA) presents to the ED today for evaluation of pain to bilateral LE wounds since last night. Patient hypertensive to 188/109, vitals otherwise wnl. patient is well appearing and in NAD. appear uncomfortable while removing dressings from wounds. please refer to images above for exam findings. Differential diagnosis includes chronic venous stasis ulcers, chronic healing wounds. unlikely cellulitis, osteomyelitis, nv compromise, threat to limb. Plan for dressing change, pain control and re-evaluation. Differential Diagnosis Differential Diagnoses: The differential diagnosis associated with the presentation includes as above. Admission/Observation Not indicated. External Record Review External record reviewed: Inpatient record, Office record, Outpatient record, Prior outpatient labs, Prior outpatient radiology, Primary care record and Outside ED record Prescription Management I considered prescription management with: Pain Medication (tramadol) Chronic Conditions Patient?s care impacted by: Diabetes, Hypertension and Other (PVD) Social Determinants Patient?s care significantly limited by Social Determinants of Health including: Other Social Determinant of Health Critical Care Time Critical Care Time Critical Care Time: No Discharge Plan Discharge Clinical Impression: Venous stasis ulcer Patient Disposition: Home, Self-Care Instructions: Peripheral Vascular Disease (ED), Venous Insufficiency (DC), Chronic Wounds (ED) Additional Instructions: You were evaluated in the ED today for your chronic venous ulcers. Your dressings were changed. You were provided with saline to take home for further dressing changes. Tramadol is a pain medication that has been sent to your pharmacy for you to take as needed for break through pain associated with dressing changes. Please continue all follow up appointments. Make sure you are taking your blood pressure medications as prescribed. Return with new or worsening symptoms. In the case of an emergency call 911. Prescriptions: New tramadol 50 mg tablet 50 mg PO Q8H PRN (Reason: pain (scale score 7-10)) Qty: 9 0RF No Action potassium chloride 20 mEq tablet extended release 20 meq PO DAILY Qty: 14 0RF tramadol 50 mg tablet 50 mg PO BID PRN (Reason: pain) Qty: 7 0RF cholecalciferol (vitamin D3) 25 mcg (1,000 unit) Tablet 25 mcg PO DAILY metformin 500 mg tablet 500 mg PO BID clonidine HCl 0.1 mg tablet 0.2 mg PO TID losartan 50 mg Tablet 50 mg PO BID Qty: 180 0RF Protocol: Hold for SBP< HOLD for SBP < : 90 carvedilol 6.25 mg Tablet 6.25 mg PO BID Qty: 180 1RF Protocol: Hold for SBP/HR < HOLD for SBP < : 90 HOLD for HR < : 60 doxycycline monohydrate 100 mg Capsule 100 mg PO BID Qty: 14 0RF levofloxacin 250 mg tablet 250 mg PO DAILY Qty: 7 0RF albuterol sulfate 90 mcg/actuation HFA aerosol inhaler 2 puff inhalation Q6H PRN (Reason: Wheezing) aspirin [Adult Aspirin Regimen] 81 mg tablet,delayed release (DR/EC) 81 mg PO DAILY 90 Days Qty: 90 2RF (DME) compr.stocking,knee,long,large Misc See Rx Instructions .ROUTE .MEDSUPPLY Qty: 2 0RF Rx Instructions: As directed ibuprofen 800 mg tablet 800 mg PO Q8H PRN (Reason: pain) Qty: 20 1RF methocarbamol 500 mg tablet 500 mg PO TID PRN (Reason: pain) Qty: 20 0RF Referrals: Lillian Quiñones MD [Primary Care Provider] - Interventions: ED Discharge Assessment Last Done: 07/19/24 14:28 Discharge Date/Time: 07/19/24 14:29 Print Language: Russian
--- NOTE | 2024-07-19 11:01 | PC.NURSE ---
pt a&ox3, c/o increased pain when doing dressing changes she has 6/10 baseline pain which increases to 9/10 pain when dressings are being done. pt states her pain currently is 9/10. provider taking dressings down to evaluate.
[2024-07-19] MEDS: Ketorolac Tromethamine 30 MG/ML VIAL IM (11:17)
[2024-07-19 12:37] VITALS: BP 184/122; PULSE 77; RESP 17; TEMP 36.8; O2SAT 96
[2024-07-19 13:10] VITALS: BP 184/122
[2024-07-19] MEDS: Losartan Potassium 50 MG TABLET PO (13:10)
[2024-07-19] MEDS: traMADoL HCL 50 MG TABLET PO (13:10)
--- NOTE | 2024-07-19 13:13 | PC.NURSE ---
pt medicated for pain and htn per order
[2024-07-19 14:22] VITALS: BP 184/122; PULSE 75; RESP 15; TEMP 36.7; O2SAT 97
[2024-07-19 14:28] VITALS: BP 180/102; PULSE 72; RESP 16; TEMP 36.7; O2SAT 96
== END 2024-07-19 14:29 | disposition home or self-care (01) ==
PROVIDERS: Emergency Provider Emergency Medicine; PCP Internal Medicine
DX: I87.2 Venous insufficiency (chronic) (peripheral) (principal); I83.018 Varicose veins of right lower extremity with ulcer other part of lower leg; I83.028 Varicose veins of left lower extremity with ulcer other part of lower leg; L97.819 Non-pressure chronic ulcer of other part of right lower leg with unspecified severity; L97.829 Non-pressure chronic ulcer of other part of left lower leg with unspecified severity; E11.9 Type 2 diabetes mellitus without complications; I10 Essential (primary) hypertension; Z91.148 Patient's other noncompliance with medication regimen for other reason; Z79.82 Long term (current) use of aspirin; Z79.84 Long term (current) use of oral hypoglycemic drugs
CPT/HCPCS: 96372; 99284; J1885

== ENCOUNTER 2024-07-21 08:20 | Emergency (ER) | payer MEDICARE, SELFPAY ==
[2024-07-21 08:25] VITALS: BP 193/128; PULSE 118; RESP 18; TEMP 37; O2SAT 97; BMI 41.6
--- NOTE | 2024-07-21 08:49 | ED_ITS ---
HPI - Wound/Laceration General Chief Complaint: Wound/Laceration Stated Complaint: wounds on ankles Time Seen by Provider: 07/21/24 08:38 Source: patient Mode of arrival: ambulatory Limitations: no limitations History of Present Illness ED Provider: DR. Tariq HPI narrative: 69-year-old female PMH significant for HTN, T2 DM, venous ulcer that patient follow with wound care and VNA, required dressing daily patient is here today for bilateral lower extremity wound dressing stuck to the wound and would like to be changed, patient is on oral antibiotic and her next appointment with the wound clinic after the holiday on Monday. No fever, no chills, no discharge. patient is here today to change dressing. Blood pressure is high patient on oral blood pressure medication that she did not take this morning but no headache, no blurry vision , no CP, no weakness, no numbness. Related Data Home Medications ?Medication ?Instructions ?Recorded ?Confirmed albuterol sulfate 90 mcg/actuation 2 puff inhalation Q6H PRN Wheezing 02/10/21 07/16/24 aerosol inhaler cholecalciferol (vitamin D3) 25 25 mcg PO DAILY 01/11/24 07/16/24 mcg (1,000 unit) tablet clonidine HCl 0.1 mg tablet 0.2 mg PO TID 07/12/24 07/16/24 metformin 500 mg tablet 500 mg PO BID 07/12/24 07/16/24 Previous Rx's ?Medication ?Instructions ?Recorded aspirin 81 mg tablet,delayed 81 mg PO DAILY 90 days #90 tabs 02/10/21 release (Adult Aspirin Regimen) compr.stocking,knee,long,large #2 ea 03/11/21 potassium chloride 20 mEq 20 meq PO DAILY #14 tabs 07/09/24 tablet,extended release tramadol 50 mg tablet 50 mg PO BID PRN pain #7 tabs 07/09/24 ibuprofen 800 mg tablet 800 mg PO Q8H PRN pain #20 tabs 07/10/24 methocarbamol 500 mg tablet 500 mg PO TID PRN pain #20 tabs 07/10/24 carvedilol 6.25 mg tablet 6.25 mg PO BID #180 tabs 07/15/24 doxycycline monohydrate 100 mg 100 mg PO BID #14 caps 07/15/24 capsule levofloxacin 250 mg tablet 250 mg PO DAILY #7 tabs 07/15/24 losartan 50 mg tablet 50 mg PO BID #180 tabs 07/15/24 tramadol 50 mg tablet 50 mg PO Q8H PRN pain (scale score 07/19/24 7-10) #9 tabs Allergies Allergy/AdvReac Type Severity Reaction Status Date / Time amlodipine Allergy Intermediate drowsiness, Verified 07/21/24 08:37 swelling of feet and ankles lisinopril Allergy Intermediate cough Verified 07/21/24 08:37 hydralazine Allergy Swelling Verified 07/21/24 08:37 metformin AdvReac Diarrhea Verified 07/21/24 08:37 Lisinopril-Hydrochlorothiazide AdvReac Intermediate Leg Uncoded 07/19/24 09:51 swelling Metoprolol Tartrate AdvReac Intermediate Leg Uncoded 07/19/24 09:51 swelling Review of Systems 2 Review of Systems: All other systems are reviewed and are negative Constitutional: Reports as per HPI and Reports no additional constitutional complaints Eyes: Reports as per HPI and Reports no additional eye complaints Reports system reviewed and no additional complaints, except as documented Cardiovascular: Reports as per HPI and Reports no additional cardiovascular complaints Respiratory: Reports as per HPI and Reports no additional respiratory complaints Gastrointestinal: Reports as per HPI and Reports no additional gastrointestinal complaints Genitourinary: Reports no additional female genitourinary complaints Musculoskeletal: Reports no additional musculoskeletal complaints Skin/Breast: Reports system reviewed and no additional complaints, except as docu Psychiatric: Reports no additional psychiatric complaints Endocrine: Reports no additional endocrine complaints Hematologic/Lymphatic: Reports no additional hematologic/lymphatic complaints Allergic/Immunologic: Reports no additional allergic/immunologic complaints Reports system reviewed and no additional complaints, except as documented and Reports Abnormal speech present [facility] Past Medical History Medical History Hypertension Wound of lower extremity Venous stasis ulcer Chronic ulcer of left ankle Diabetes Hypertension Abnormal Pap smear of cervix Diabetes mellitus Hypertension Renal calculi Diastasis recti Dyslipidemia associated with type 2 diabetes mellitus Abdominal mass Microalbuminuria Renal calculi Morbid obesity Surgical History Hx of prior ablation treatment Family History Family History Father Seizures Mother Seizures Congenital heart disease in adult Hypotension Maternal Grandfather Leukemia Social History Social History Household Members: Family Housing: House Do you presently have visiting nurse or other home services: No Alcohol intake: current Alcohol intake frequency: holidays/special occasions only Alcohol type: wine Patient Tobacco Use Status: Former Tobacco user Tobacco use type: Cigarette e-Cigarette/Vaping Use: Never Used Second Hand Smoke Exposure: No Substance Use Type: Other Advance Directives: No Advance Directives Information Provided: Yes service: No Current occupational status: employed Current occupational exposures/hazards: No Physical Exam 2 Vital Signs: Vital Signs: Last Vital Signs Temp 98.6 F 07/21/24 08:25 Pulse 118 H 07/21/24 08:25 Resp 18 07/21/24 08:25 BP 195/107 H 07/21/24 09:09 Pulse Ox 97 07/21/24 08:25 O2 Del Method Room Air 07/21/24 08:25 BMI result Body Mass Index 41.6 Vital signs have been reviewed and appear to be correct. Blood pressure elevated. Heart rate Elevated. Respiratory rate normal. Temperature normal. Oxygen saturation normal. Appearance: Alert. Oriented X3. No acute distress. Head: Normal external exam. Normocephalic. Atraumatic. No Cornelius signs noted. No raccoon eyes noted Eyes: PERRLA. EOMI. Conjunctiva and sclera normal. Eyelids normal. ENT: TM's Normal. Pharynx normal. Uvula midline. Moist mucous membranes. No trismus noted. No drooling noted. No muffled voice noted. Neck: Normal inspection. Neck supple. FROM. No adenopathy. Thyroid Normal. No meningeal signs. No neck mass noted. CVS: Normal heart rate and rhythm. Heart sound normal. No murmurs noted. Pulses normal throughout. Respiratory: No respiratory distress. Painless inspiration. Breath sounds normal. No wheezes/rales/rhonchi noted. Chest nontender. No accessory muscle usage noted or decreased air movement noted. Abdomen: Soft and nontender. Bowel sounds normal in all 4 quadrants. No distention noted. No organomegaly noted. No visible injury noted. Back: No CVA tenderness. Full range of motion noted. Skin: Skin warm and dry. Normal skin color. Normal skin turgor. No rashes/lesions/lacerations noted. Extremities: To ulcerative lesions on both lower leg please refer to the picture. Neuro: Oriented X 3. Cranial nerve exam: II-XII are grossly intact No motor deficit. No sensory deficit. Reflexes normal. Course Reevaluation(s) Reevaluation #1: Chronic bilateral lower extremities wound follow at wound clinic because of the holidays patient came in for wound dressing change. Wound dressing should be wet to dry to prevent sticking to the granulation tissue. Patient is on oral course of antibiotic no need at this point for repeat antibiotic wound appear healing with no sign of infection. Elevated blood pressure patient was instructed to take her regular daily blood pressure medication and follow-up with her PCP for further management patient is asymptomatic. Repeat blood pressure in the ER is slightly better. Time: 09:01 Medical Decision Making Differential Diagnosis Differential Diagnoses: The differential diagnosis associated with the presentation includes ( Infected wound, venous stasis wounds, wound care.) Admission/Observation Consideration of admission/observation: Escalation of care including admission/observation considered Independent Historian Clinical information obtained from an independent historian. History obtained from or confirmed by: Other ( Chronic venous stasis wounds.) Discharge Plan Discharge Clinical Impression: Encounter for wound care Patient Disposition: Home, Self-Care Instructions: Chronic Wounds (ED) Additional Instructions: follow-up with the wound clinic as scheduled. Prescriptions: No Action potassium chloride 20 mEq tablet extended release 20 meq PO DAILY Qty: 14 0RF tramadol 50 mg tablet 50 mg PO BID PRN (Reason: pain) Qty: 7 0RF cholecalciferol (vitamin D3) 25 mcg (1,000 unit) Tablet 25 mcg PO DAILY metformin 500 mg tablet 500 mg PO BID clonidine HCl 0.1 mg tablet 0.2 mg PO TID losartan 50 mg Tablet 50 mg PO BID Qty: 180 0RF Protocol: Hold for SBP< HOLD for SBP < : 90 carvedilol 6.25 mg Tablet 6.25 mg PO BID Qty: 180 1RF Protocol: Hold for SBP/HR < HOLD for SBP < : 90 HOLD for HR < : 60 doxycycline monohydrate 100 mg Capsule 100 mg PO BID Qty: 14 0RF levofloxacin 250 mg tablet 250 mg PO DAILY Qty: 7 0RF tramadol 50 mg tablet 50 mg PO Q8H PRN (Reason: pain (scale score 7-10)) Qty: 9 0RF albuterol sulfate 90 mcg/actuation HFA aerosol inhaler 2 puff inhalation Q6H PRN (Reason: Wheezing) aspirin [Adult Aspirin Regimen] 81 mg tablet,delayed release (DR/EC) 81 mg PO DAILY 90 Days Qty: 90 2RF (DME) compr.stocking,knee,long,large Misc See Rx Instructions .ROUTE .MEDSUPPLY Qty: 2 0RF Rx Instructions: As directed ibuprofen 800 mg tablet 800 mg PO Q8H PRN (Reason: pain) Qty: 20 1RF methocarbamol 500 mg tablet 500 mg PO TID PRN (Reason: pain) Qty: 20 0RF Print Language: [place]ian
[2024-07-21 09:09] VITALS: BP 195/107
[2024-07-21 09:32] VITALS: BP 195/107; PULSE 95; RESP 18; TEMP 36.7; O2SAT 95
== END 2024-07-21 09:33 | disposition home or self-care (01) ==
PROVIDERS: Emergency Provider Emergency Medicine; PCP Internal Medicine
DX: S91.011A Laceration without foreign body, right ankle, initial encounter (principal); S91.012A Laceration without foreign body, left ankle, initial encounter; X58.XXXA Exposure to other specified factors, initial encounter; Y93.9 Activity, unspecified; Y92.89 Other specified places as the place of occurrence of the external cause; Y99.8 Other external cause status; Z48.00 Encounter for change or removal of nonsurgical wound dressing
CPT/HCPCS: 99282; 99283

== ENCOUNTER 2024-07-25 10:43 | Outpatient (AMB) | payer SELFPAY ==
[2024-07-25 10:47] VITALS: BP 190/102; PULSE 103; O2SAT 96
--- NOTE | 2024-07-25 10:47 | A.OFFPC_ITS ---
Vital Signs 3 07/25/24 10:47 Height 5 ft 7 in BMI Reason not done Patient refused/unable BP 190/102 H Blood Pressure Location Lt brachial Position Sitting Pulse 103 H Pulse Source Pulse Oximeter Pulse Oximetry (%) 96 Oxygen Delivery Method Room Air Intake Visit Reasons: TCM 07/15 Hypertension Intake Note: Pt c/o being in a lot of pain and if she didn't have this appt she would of gone back to the ED. She was scheduled to be seen in the wound care clinic today but she stated they canceled her appt due to being short staffed. She has been having issues with her dressings and states it is currently leaking. Electric Needle Specialist Required: No Accompanied by: Self / Same As Patient Allergies amlodipine Allergy (Intermediate, Verified 07/25/24 10:48) drowsiness, swelling of feet and ankles lisinopril Allergy (Intermediate, Verified 07/25/24 10:48) cough hydralazine Allergy (Verified 07/25/24 10:48) Swelling metformin Adverse Reaction (Verified 07/25/24 10:48) Diarrhea Lisinopril-Hydrochlorothiazide Adverse Reaction (Intermediate, Uncoded 07/25/24 10:48) Leg swelling Metoprolol Tartrate Adverse Reaction (Intermediate, Uncoded 07/25/24 10:48) Leg swelling Tobacco use date assessed: 07/01/24 Fall risk assessment: 1 Fall in past year Last assessed Fall Risk: 07/25/24 Dental Screening Dental Screen Date: 07/25/24 Did you have a dental visit in the last 12 months?: No Did you have a dental problem in the last 6 months where you did not have access to dental care?: No Was dental information given to patient?: Patient has dentist HPI TCM 2 TCM Information0 Date of Discharge 07/21/24 Discharged From [facility] HPI Comments 2 History of Present Illness0 Details 69y/o female patient who presents to the clinic today for EDF. Pt was admitted at [facility] on 07/21/24 for bilateral lower extremity wound dressing stuck to the wound and would like them changed. Patient was recently admitted to this hospital from 07/12/24-07/15/24 for chronic LE wounds requiring IV abx. She was discharge home with Levaquin and doxycycline x1 week which she has been taking as presribed. She has not missed/ skipped any doses. She tells me her pain was well controlled on morphine, oxy, and Tramadol while hospitalized however was discharged home with only Tylenol. Tylenol seems to keep her pain around a 6/10 at home until she has to change her dressings. Pt had an appointment today with Wound clinic doctor for an evaluation which was cancelled. Pt reports that last dressing change was in the ED 07/21/24. Reports severe pain and the wounds are leaking and foul odor. Denies fevers, chills or nausea or vomiting. [facility] Medical History Hypertension Wound of lower extremity Venous stasis ulcer Chronic ulcer of left ankle Diabetes Hypertension Abnormal Pap smear of cervix Diabetes mellitus Hypertension Renal calculi Diastasis recti Dyslipidemia associated with type 2 diabetes mellitus Abdominal mass Microalbuminuria Renal calculi Morbid obesity Surgical History Hx of prior ablation treatment Family History Father Seizures Mother Seizures Congenital heart disease in adult Hypotension Maternal Grandfather Leukemia Social History Household Members: Family Housing: House Do you presently have visiting nurse or other home services: No Alcohol intake: current Alcohol intake frequency: holidays/special occasions only Alcohol type: wine Patient Tobacco Use Status: Former Tobacco user Tobacco use type: Cigarette e-Cigarette/Vaping Use: Never Used Second Hand Smoke Exposure: No Substance Use Type: Other service: No Current occupational status: employed Current occupational exposures/hazards: No Cognitive needs: No Hearing needs: No Vision needs: No Questionnaire PHQ-9 Over the last 2 weeks, how often have you been bothered by any of the following problems? 1. Little interest or pleasure in doing things: not at all 2. Feeling down, depressed, or hopeless: not at all 3. Trouble falling or staying asleep, or sleeping too much: not at all 4. Feeling tired or having little energy: not at all 5. Poor appetite or overeating: not at all 6. Feeling bad about yourself - or that you are a failure or have let yourself or your family down: not at all 7. Trouble concentrating on things, such as reading the newspaper or watching television: not at all 8. Moving or speaking so slowly that other people could have noticed. Or the opposite - being so fidgety or restless that you have been moving around a lot more than usual: not at all 9. Thoughts that you would be better off or of hurting yourself in some way: not at all Total score: 0 Depression Screening Interpretation: Negative Depression Screening Done: Yes Source: Developed by Drs. Cesar Snow, Ela Wiley, Benjamín Chino and colleagues, with an educational rio from [facility]. Thrive Questionnaire Date Thrive assessed: 07/13/24 AUDIT C Alcohol Use Questionnaire (AUDIT-C) 1. How often do you have a drink containing alcohol?: Monthly or less 2. How many drinks containing alcohol do you have on a typical day when you are drinking?: 1 or 2 3. How often do you have six or more drinks on one occasion?: Never Total Score: 1 MARLYN-7 AMB Questionnaire MARLYN-7 Date MARLYN - 7 assessed: 07/25/24 Feeling nervous, anxious, or on edge: 0 = Not at all Not being able to stop or control worryin = Not at all Worrying too much about different things: 0 = Not at all Trouble relaxin = Not at all Being so restless that it is hard to sit still: 0 = Not at all Becoming easily annoyed or irritable: 0 = Not at all Feeling afraid as if something awful might happen: 0 = Not at all Total MARLYN-7 score (0-4 normal; 5-9 mild; 10-14 moderate; 15-21 severe): 0 Source: Developed by Drs. Cesar Snow, Ela Wiley, Benjamín Chino and colleagues, with an educational rio from [facility]. MARLYN-7 Assessment Billing MARLYN-7 Assessment Tool: MARLYN-7 Assessment 92558 Review of Systems Const All systems reviewed & are unremarkable except as noted in HPI and below Physical exam (Primary Care) Vital Signs: Last Vital Signs Pulse 103 H 07/25/24 10:47 BP 190/102 H 07/25/24 10:47 Pulse Ox 96 07/25/24 10:47 Oxygen Delivery Method Room Air 07/25/24 10:47 Tobacco/Smoking Status: Tobacco use Status Tobacco use date assessed 07/01/24 07/25/24 10:53 Patient Tobacco Use Status Former Tobacco user 07/25/24 10:53 Tobacco use type Cigarette 07/25/24 10:53 e-Cigarette/Vaping Use Never Used 07/25/24 10:53 PHQ-9: PHQ-9 Score PHQ-9: Total score 0 07/25/24 10:53 Depression Screening Interpretation: Negative Thrive Assessment: Date of Thrive Assessment Date Thrive assessed 07/13/24 07/25/24 10:53 Const General: cooperative; No comfortable Orientation/consciousness: patient oriented x3 Skin Other: SEE WOUND IMAGES BELOW. Neuro General: patient oriented x3 Extrem Other: Coding Level of Care Code TCM Mod MDM <= 7 Days Diagnoses Venous stasis of lower extremity I87.8 Open wound of both lower extremities, subsequent encounter S81.801D; S81.802D Encounter type: subsequent encounter Additional Codes MARLYN-7 Assessment Billing - MARLYN-7 Assessment Tool: MARLYN-7 Assessment [id number] ([id number]) PHQ-9 - 00357 - PHQ-9 Billing: ([id number]) Time Spent (min) 25 Comment Spent on wound assessment, dressing changes Assessment & Plan Assessment & Plan (1) Venous stasis of lower extremity: Code(s): I87.8 - Other specified disorders of veins Plan: Changed dressing BLE. Wounds look infected with foul smell discharged. Irrigated and clean wounds with Sterile water, Applied Xeroform, Abd Pads and wrapped with Kerlix Roll and Tape. Advised Pt to go to ED for possible IV Abx. (2) Open wound of both lower extremities: Code(s): S81.801A - Unspecified open wound, right lower leg, initial encounter; S81.802A - Unspecified open wound, left lower leg, initial encounter Qualifiers: Encounter type: subsequent encounter Qualified Code(s): S81.801D - Unspecified open wound, right lower leg, subsequent encounter; S81.802D - Unspecified open wound, left lower leg, subsequent encounter Plan: Changed dressing BLE. Wounds look infected with foul smell discharged. Irrigated and clean wounds with Sterile water, Applied Xeroform, Abd Pads and wrapped with Kerlix Roll and Tape. Advised Pt to go to ED for possible IV Abx. Ordered Tramadol for pain control. Medications: Refilled 2 tramadol 50 mg PO Q8H PRN 14 tabs 0RF pain (scale score 7-10) I87.8 - Other specified disorders of veins, S81.801D - Unspecified open wound, right lower leg, subsequent encounter, S81.802D - Unspecified open wound, left lower leg, subsequent encounter
== END 2024-07-25 12:25 | disposition home or self-care (01) ==
PROVIDERS: PCP Internal Medicine; Visit Provider Nurse Practitioner Family
DX: S81.801A Unspecified open wound, right lower leg, initial encounter (principal); S81.802A Unspecified open wound, left lower leg, initial encounter; I87.8 Other specified disorders of veins

== ENCOUNTER → 2024-07-25 10:43 | Outpatient (BNVA) | payer SELFPAY | PROVIDERS: PCP Internal Medicine; Visit Provider Nurse Practitioner Family | DX: I87.8 Other specified disorders of veins (principal); S81.801D Unspecified open wound, right lower leg, subsequent encounter; S81.802D Unspecified open wound, left lower leg, subsequent encounter | CPT/HCPCS: 96127; 99495 ==

== ENCOUNTER 2024-08-10 15:03 | Emergency (ER) | payer SELFPAY ==
--- NOTE | ~2024-08-10 | XR_ITS ---
EXAMINATION: XR TIBIA AND FIBULA, RIGHT X-ray left tibia-fibula CLINICAL INFORMATION: Wound increased pain COMPARISON: MRI of the left lower leg June 2024 x-ray of the left tibia-fibula 06/09/2024 TECHNIQUE: AP and lateral views of the right tibia and fibula were obtained. AP and lateral views of the left tibia-fibula were obtained. FINDINGS: Right tibia-fibula: There is osteoarthritis of the knee joint with marginal osteophytes noted. The tibia and fibula are otherwise normal. There is arterial calcification. Surrounding soft tissues normal. Left tibia-fibula: There are degenerative changes of the left knee with marginal osteophytes noted. The tibia and fibula otherwise normal. Arterial calcification noted. There is some irregularity of the medial aspect of the distal soft tissues compatible with a soft tissue defect/ulceration unchanged compared with recent MRI. XR/XR tibia fibula LT 2V IMPRESSION: RIGHT TIBIA-FIBULA: Osteoarthritis of the right knee joint. Calcific atherosclerotic disease. Soft tissues unremarkable LEFT TIBIA-FIBULA: Soft tissue defect/ulceration unchanged compared with recent MRI. Electronically signed by: Michael Joiner MD 08/10/2024 04:25 PM EDT
--- NOTE | ~2024-08-10 | XR_ITS ---
EXAMINATION: XR TIBIA AND FIBULA, RIGHT X-ray left tibia-fibula CLINICAL INFORMATION: Wound increased pain COMPARISON: MRI of the left lower leg June 2024 x-ray of the left tibia-fibula 06/09/2024 TECHNIQUE: AP and lateral views of the right tibia and fibula were obtained. AP and lateral views of the left tibia-fibula were obtained. FINDINGS: Right tibia-fibula: There is osteoarthritis of the knee joint with marginal osteophytes noted. The tibia and fibula are otherwise normal. There is arterial calcification. Surrounding soft tissues normal. Left tibia-fibula: There are degenerative changes of the left knee with marginal osteophytes noted. The tibia and fibula otherwise normal. Arterial calcification noted. There is some irregularity of the medial aspect of the distal soft tissues compatible with a soft tissue defect/ulceration unchanged compared with recent MRI. XR/XR tibia fibula RT 2V IMPRESSION: RIGHT TIBIA-FIBULA: Osteoarthritis of the right knee joint. Calcific atherosclerotic disease. Soft tissues unremarkable LEFT TIBIA-FIBULA: Soft tissue defect/ulceration unchanged compared with recent MRI. Electronically signed by: Michael Joiner MD 08/10/2024 04:25 PM EDT
[2024-08-10 15:22] VITALS: BP 92/74; PULSE 103; RESP 16; TEMP 36.9; O2SAT 97; BMI 37.6
--- NOTE | 2024-08-10 15:31 | ED.GENADULT ---
HPI - General Adult General Chief complaint: Wound/Laceration Stated complaint: ankle wound drainage Time Seen by Provider: 08/10/24 18:23 Source: patient Mode of arrival: ambulatory Limitations: no limitations History of Present Illness ED Provider: Dr. 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 Patient states that she goes to the Wound Care at [facility]. Patient has nursing services starting in about a week. Patient requesting a dressing change. Related Data Home Medications ?Medication ?Instructions ?Recorded ?Confirmed albuterol sulfate 90 mcg/actuation 2 puff inhalation Q6H PRN Wheezing 02/10/21 07/16/24 aerosol inhaler cholecalciferol (vitamin D3) 25 25 mcg PO DAILY 01/11/24 07/16/24 mcg (1,000 unit) tablet clonidine HCl 0.1 mg tablet 0.2 mg PO TID 07/12/24 07/16/24 metformin 500 mg tablet 500 mg PO BID 07/12/24 07/16/24 Previous Rx's ?Medication ?Instructions ?Recorded aspirin 81 mg tablet,delayed 81 mg PO DAILY 90 days #90 tabs 02/10/21 release (Adult Aspirin Regimen) compr.stocking,knee,long,large #2 ea 03/11/21 potassium chloride 20 mEq 20 meq PO DAILY #14 tabs 07/09/24 tablet,extended release tramadol 50 mg tablet 50 mg PO BID PRN pain #7 tabs 07/09/24 ibuprofen 800 mg tablet 800 mg PO Q8H PRN pain #20 tabs 07/10/24 methocarbamol 500 mg tablet 500 mg PO TID PRN pain #20 tabs 07/10/24 carvedilol 6.25 mg tablet 6.25 mg PO BID #180 tabs 07/15/24 levofloxacin 250 mg tablet 250 mg PO DAILY #7 tabs 07/15/24 losartan 50 mg tablet 50 mg PO BID #180 tabs 07/15/24 tramadol 50 mg tablet 50 mg PO Q8H PRN pain (scale score 07/25/24 7-10) #14 tabs Allergies Allergy/AdvReac Type Severity Reaction Status Date / Time amlodipine Allergy Intermediate drowsiness, Verified 08/10/24 15:34 swelling of feet and ankles lisinopril Allergy Intermediate cough Verified 08/10/24 15:34 hydralazine Allergy Swelling Verified 08/10/24 15:34 metformin AdvReac Diarrhea Verified 08/10/24 15:34 Lisinopril-Hydrochlorothiazide AdvReac Intermediate Leg Uncoded 07/25/24 10:48 swelling Metoprolol Tartrate AdvReac Intermediate Leg Uncoded 07/25/24 10:48 swelling Review of Systems Review of Systems: Constitutional : No Weight loss, No Fever, No Chills, No Night Sweats, No Fatigue, No Malaise ENT/Mouth : No Hearing loss, No Ear Pain, No Nasal Congestion, No Sinus Pain, No Hoarseness, No sore throat, No Rhinorrhea, No Swallowing Difficulty Eyes: No Eye Pain, No Swelling, No Redness, No Foreign Body, No Discharge, No Vision Changes Cardiovascular : No Chest Pain, No SOB, No Dyspnea on Exertion, No Orthopnea, No Edema, No Palpitations Respiratory : No Cough, No Sputum, No Wheezing, No Smoke Exposure, No Dyspnea Gastrointestinal : No Nausea, No Vomiting, No Diarrhea, No Constipation, No abdominal Pain, No Hematochezia, No Melena Genitourinary : no irregular bleeding, No Dysuria, No Urinary Frequency, No Hematuria, No Urinary Incontinence, No Urgency, No Flank Pain, No Urinary Flow Changes, No Hesitancy Musculoskeletal : No joint pain, No Myalgias, No Joint Swelling Skin : Chronic wounds in bilateral lower extremities Neuro : No Weakness, No Numbness, No Paresthesias, No Loss of Consciousness, No Dizziness, No Headache Psych : No Anxiety/Panic, No Depression, No SI/HI/AH/VH, No Social Issues, Heme/Lymph: No Bruising, No Bleeding,No Lymphadenopathy Endocrine : No Polyuria, No Polydipsia, No Temperature Intolerance [facility] Past Medical History Medical History Hypertension Wound of lower extremity Venous stasis ulcer Chronic ulcer of left ankle Diabetes Hypertension Abnormal Pap smear of cervix Diabetes mellitus Hypertension Renal calculi Diastasis recti Dyslipidemia associated with type 2 diabetes mellitus Abdominal mass Microalbuminuria Renal calculi Morbid obesity Surgical History Hx of prior ablation treatment Family History Family History Father Seizures Mother Seizures Congenital heart disease in adult Hypotension Maternal Grandfather Leukemia Social History Social History Household Members: Family Housing: House Do you presently have visiting nurse or other home services: No Alcohol intake: current Alcohol intake frequency: holidays/special occasions only Alcohol type: wine Patient Tobacco Use Status: Former Tobacco user Tobacco use type: Cigarette Smoked in Last 30 Days: No e-Cigarette/Vaping Use: Never Used Second Hand Smoke Exposure: No Use of substances other than those prescribed or required for medical reasons: No Substance Use Type: Other Advance Directives: No Advance Directives Information Provided: No service: No Current occupational status: employed Current occupational exposures/hazards: No Cognitive needs: No Hearing needs: No Vision needs: No Physical Exam ED Vital Signs: Vital Signs - 24 hr 08/10/24 15:22 08/10/24 17:18 08/10/24 20:05 Temperature 98.4 F 98.2 F 98.5 F Pulse Rate 103 H 78 70 Respiratory Rate 16 18 16 Blood Pressure 92/74 168/99 H 152/93 H Pulse Oximetry 97 96 96 Oxygen Delivery Method Room Air Room Air BMI result Body Mass Index 37.6 Const Other: Appearance: Alert. Oriented X3. No acute distress. Eyes: Pupils equal, round and reactive to light. ENT: Pharynx normal. Neck: Normal inspection. Neck supple. No lymph nodes noted. No crepitus CVS: Normal heart rate and rhythm. Pulses normal. Normal S1 and S2 Respiratory: No respiratory distress. Breath sounds normal. No Wheezing. No rales Abdomen: Soft and nontender. No rigidity. No distention. Skin: Skin warm and dry. Normal skin color. Normal skin turgor. extremities below Extremities: No lower extremity edema. patient has bilateral lower extremity chronic wounds in both distal extremities. Neuro: Oriented X 3. No motor deficit. No sensory deficit. Moving all extremities. No slurred speech. CN 2 through 12 grossly intact Psych: calm, cooperative, normal affect Course Course Course Narrative: This is an RME: Additional HPI, ROS, PE not included below will be deferred to primary provider. RME assessment and note performed by: Emma Livingston PA-C This is a 89-fosy-ffe-female,PMH of HTN, DMII, Venous ulcers follows w wound care, who presents today with complaints of worsening pain, drainage from chronic wounds. She has been seen at [facility] and was diagnosed with pyoderma gangrenosum. No fevers. Plan: Labs, Xray further ER eval needed Medications Administered Discontinued Medications Generic Name Dose Route Start Last Admin Trade Name Connor PRN Reason Stop Dose Admin Ibuprofen 600 mg 08/10/24 18:41 08/10/24 18:50 Ibuprofen 600 Mg Tablet PO 08/10/24 18:42 600 mg ONCE ONE Administration Oxycodone HCl 5 mg 08/10/24 20:58 08/10/24 21:25 Oxycodone Hcl Immed Release 5 Mg Tablet PO 08/10/24 20:59 5 mg ONCE ONE Administration Potassium Chloride 40 meq 08/10/24 18:31 08/10/24 18:50 Potassium Chloride Packet 20 Meq Packet PO 08/10/24 18:32 40 meq ONCE ONE Administration Tramadol HCl 50 mg 08/10/24 18:41 08/10/24 18:50 Tramadol Hcl 50 Mg Tablet PO 08/10/24 18:42 50 mg ONCE ONE Administration Medical Decision Making Medical Decision Making [facility] Narrative: My interpretation of labs, normal hematology, potassium shows slightly low potassium, which was repleted p.o.. - Before the dressing changes, patient requested pain medication. Patient was here in ibuprofen and tramadol which did not work, then patient was given a dose of oxycodone. Patient states that she feels ready to get her dressings changed. - Patient's dressings were changed with sterile water, redressed, patient ready for discharge Lab Data [facility] Lab Attestation statement: I reviewed the patient's lab results. 08/10/24 15:46 08/10/24 15:46 Labs: Lab Results 08/10/24 Range/Units 15:46 WBC 7.8 (4.8-10.8) X10*3/uL RBC 4.21 (4.20-5.50) X10*6/uL Hgb 12.4 (12.0-16.0) g/dl Hct 36.4 L (37.0-47.0) % MCV 86.5 (80.0-98.0) fL MCH 29.5 (27.0-33.0) pg MCHC 34.1 (31.0-35.0) g/dl RDW 12.7 (11.0-16.0) % Plt Count 250 (160-400) X10*3/uL MPV 9.2 L (9.4-12.3) fL Immature Gran % (Auto) 0.3 (0.0-0.4) % Neut % (Auto) 64.9 (45-73) % Lymph % (Auto) 24.0 (20-40) % [place] % (Auto) 6.9 (2-11) % Eos % (Auto) 3.3 (0-4) % Baso % (Auto) 0.6 (0-2) % Lymph # (Auto) 1.9 (1.2-4.9) X10*3/uL [place] # (Auto) 0.5 (0.1-1.2) X10*3/uL Eos # (Auto) 0.3 (0.0-0.4) X10*3/uL Baso # (Auto) 0.1 (0.0-0.2) X10*3/uL Abs Immat Gran (auto) 0.02 (0.00-0.03) X10*3/uL Absolute Neuts (auto) 5.0 (2.0-8.3) x10*3/uL Absolute Nucleated RBC 0.000 (0.0-0.012) X10*3/uL Nucleated RBC % (auto) 0.0 (0.0-0.2) /100WBC Sodium 138 (135-145) mmol/L Potassium 3.1 L (3.3-5.1) mmol/L Chloride 102 (96-108) mmol/L Carbon Dioxide 22 (22-29) mmol/L Anion Gap 17 (12-20) BUN 13 (9-16) mg/dL Creatinine 0.96 (0.5-1.4) mg/dL Estim Creat Clear Calc 71.2 Estimated GFR 58 Random Glucose 184 H (60-115) mg/dL Calcium 9.0 (8.4-10.2) mg/dL Total Bilirubin 0.5 (0.0-1.0) mg/dL Direct Bilirubin 0.2 (0.0-0.5) mg/dL AST 22 (5-31) U/L ALT 9 (0-31) U/L Alkaline Phosphatase 62 (39-117) U/L Total Protein 7.3 (6.5-8.0) g/dL Albumin 3.6 (3.5-5.0) g/dL Discharge Plan Discharge Clinical Impression: Chronic wound Patient Disposition: Home, Self-Care Instructions: Chronic Wounds (ED) Additional Instructions: Please follow-up with your primary care physician tomorrow. If you have any worsening or new symptoms, please return to the emergency room or call 911 Prescriptions: No Action potassium chloride 20 mEq tablet extended release 20 meq PO DAILY Qty: 14 0RF tramadol 50 mg tablet 50 mg PO BID PRN (Reason: pain) Qty: 7 0RF cholecalciferol (vitamin D3) 25 mcg (1,000 unit) Tablet 25 mcg PO DAILY metformin 500 mg tablet 500 mg PO BID clonidine HCl 0.1 mg tablet 0.2 mg PO TID losartan 50 mg Tablet 50 mg PO BID Qty: 180 0RF Protocol: Hold for SBP< HOLD for SBP < : 90 carvedilol 6.25 mg Tablet 6.25 mg PO BID Qty: 180 1RF Protocol: Hold for SBP/HR < HOLD for SBP < : 90 HOLD for HR < : 60 levofloxacin 250 mg tablet 250 mg PO DAILY Qty: 7 0RF albuterol sulfate 90 mcg/actuation HFA aerosol inhaler 2 puff inhalation Q6H PRN (Reason: Wheezing) aspirin [Adult Aspirin Regimen] 81 mg tablet,delayed release (DR/EC) 81 mg PO DAILY 90 Days Qty: 90 2RF (DME) compr.stocking,knee,long,large Misc See Rx Instructions .ROUTE .MEDSUPPLY Qty: 2 0RF Rx Instructions: As directed ibuprofen 800 mg tablet 800 mg PO Q8H PRN (Reason: pain) Qty: 20 1RF methocarbamol 500 mg tablet 500 mg PO TID PRN (Reason: pain) Qty: 20 0RF tramadol 50 mg tablet 50 mg PO Q8H PRN (Reason: pain (scale score 7-10)) Qty: 14 0RF Print Language: Uruguayan
[2024-08-10 15:51] LABS: MANUAL DIFF FLAG NO
[2024-08-10 15:53] LABS: Basophils Absolute Auto 0.1 X10*3/uL (0.0-0.2); Basophils Percent Auto 0.6 % (0-2); Eosinophils Absolute Auto 0.3 X10*3/uL (0.0-0.4); Eosinophils Percent Auto 3.3 % (0-4); Hematocrit 36.4 % (37.0-47.0); Hemoglobin 12.4 g/dl (12.0-16.0); Imm Gran Abs Auto 0.02 X10*3/uL (0.00-0.03); Imm Gran Pct Auto 0.3 % (0.0-0.4); Lymphocytes Absolute Auto 1.9 X10*3/uL (1.2-4.9); Mean Corpuscular HGB Conc 34.1 g/dl (31.0-35.0); Mean Corpuscular Hemoglobin 29.5 pg (27.0-33.0); Mean Corpuscular Volume 86.5 fL (80.0-98.0); Mean Platelet Volume 9.2 fL (9.4-12.3); Monocytes Absolute Auto 0.5 X10*3/uL (0.1-1.2); Monocytes Percent Auto 6.9 % (2-11); Neutrophils Percent Auto 64.9 % (45-73); Platelet Count 250 X10*3/uL (160-400); Red Blood Count 4.21 X10*6/uL (4.20-5.50); Red Cell Distribution Width 12.7 % (11.0-16.0); White Blood Count 7.8 X10*3/uL (4.8-10.8)
[2024-08-10 16:13] LABS: Alanine Aminotransferase 9 U/L (0-31); Albumin Level 3.6 g/dL (3.5-5.0); Anion Gap 17 (12-20); Aspartate Amino Transferase 22 U/L (5-31); Bilirubin Direct 0.2 mg/dL (0.0-0.5); Bilirubin Total 0.5 mg/dL (0.0-1.0); Blood Urea Nitrogen 13 mg/dL (9-16); Carbon Dioxide 22 mmol/L (22-29); Chloride 102 mmol/L (96-108); Creatinine Clr Calc Pharmacy 71.2; Estimated Glomerular Filt Rate 58; Glucose Random 184 mg/dL (60-115); Potassium 3.1 mmol/L (3.3-5.1); Sodium 138 mmol/L (135-145); Total Protein 7.3 g/dL (6.5-8.0)
[2024-08-10 16:25] LABS: Alkaline Phosphatase 62 U/L (39-117)
[2024-08-10 17:18] VITALS: BP 168/99; PULSE 78; RESP 18; TEMP 36.8; O2SAT 96
[2024-08-10] MEDS: Ibuprofen 600 MG TABLET PO (18:50)
[2024-08-10] MEDS: traMADoL HCL 50 MG TABLET PO (18:50)
[2024-08-10] MEDS: Potassium Chloride Packet 20 MEQ PACKET 40 MEQ PO (18:50)
[2024-08-10 20:05] VITALS: BP 152/93; PULSE 70; RESP 16; TEMP 36.9; O2SAT 96
--- NOTE | 2024-08-10 21:23 | PC.NURSE ---
MD lugo notified at 2057 administered pain medication ineffective- oxy 5mg ordered
[2024-08-10] MEDS: oxyCODONE HCl Immed Release 5 MG TABLET PO (21:25)
[2024-08-10 23:58] VITALS: BP 190/116; PULSE 76; RESP 18; TEMP 36.8; O2SAT 97
--- NOTE | 2024-08-10 23:59 | MHC.EDTECH ---
This tech took over care of patient at 2300,rounded and introduced self to patient,vitals taken,BP is elevated 190/116,RN is aware, patient appears to be comfortable,pt ambulated with a steady gait to the bathroom,call woods within reach
[2024-08-11 00:21] VITALS: BP 168/98
[2024-08-11] MEDS: Losartan Potassium 50 MG TABLET PO (00:21)
[2024-08-11] MEDS: cloNIDine HCL 0.2 MG TABLET PO (00:21)
[2024-08-11 00:57] VITALS: BP 168/98; PULSE 78; RESP 18; TEMP 36.9; O2SAT 97
== END 2024-08-11 00:58 | disposition home or self-care (01) ==
PROVIDERS: Physician Assistant Medical; Emergency Provider Emergency Medicine; PCP Internal Medicine
DX: Z48.00 Encounter for change or removal of nonsurgical wound dressing (principal); L88 Pyoderma gangrenosum; E11.9 Type 2 diabetes mellitus without complications; I10 Essential (primary) hypertension; Z79.899 Other long term (current) drug therapy; Z79.82 Long term (current) use of aspirin
CPT/HCPCS: 36415; 73590; 80048; 80076; 85025; 87040; 99284

== ENCOUNTER 2024-08-14 14:11 | Outpatient (AMB) | payer SELFPAY ==
--- NOTE | 2024-08-14 14:19 | A.OFFPC_ITS ---
Vital Signs 08/14/24 14:21 Height 5 ft 7 in Weight 257 lb 0.4 oz BMI 40.3 BP 162/108 H Blood Pressure Location Lt brachial Position Sitting Pulse 92 Pulse Source Pulse Oximeter Pulse Oximetry (%) 96 Oxygen Delivery Method Room Air Intake Visit Reasons: f/u DM and ulcers Allergies amlodipine Allergy (Intermediate, Verified 08/14/24 14:23) drowsiness, swelling of feet and ankles lisinopril Allergy (Intermediate, Verified 08/14/24 14:23) cough hydralazine Allergy (Verified 08/14/24 14:23) Swelling metformin Adverse Reaction (Verified 08/14/24 14:23) Diarrhea Lisinopril-Hydrochlorothiazide Adverse Reaction (Intermediate, Uncoded 08/14/24 14:23) Leg swelling Metoprolol Tartrate Adverse Reaction (Intermediate, Uncoded 08/14/24 14:23) Leg swelling Medication List - Last Reconciled 08/14/24 by Aliza Clemens PA-C albuterol sulfate 90 mcg/actuation 2 puffs inhalation Q6H PRN aspirin (Adult Aspirin Regimen) 81 mg PO DAILY 90 days betamethasone dipropionate 0.05% 1 appl topical BID carvedilol 6.25 mg See Protocol PO BID cholecalciferol (vitamin D3) 25 mcg PO DAILY clonidine HCl 0.2 mg PO TID compr.stocking,knee,long,large As directed ibuprofen 800 mg PO Q8H PRN losartan 50 mg See Protocol PO BID methocarbamol 500 mg PO TID PRN naloxone 4 mg/actuation intranasal potassium chloride ER 20 mEq PO DAILY tramadol 50 mg PO BID PRN tramadol 50 mg PO Q8H PRN Tobacco use date assessed: 07/01/24 Dental Screening Dental Screen Date: 07/25/24 HPI f/u DM and ulcers HPI Details 69-year-old female with past medical his tory of diabetes mellitus, hypertension, dyslipidemia, and morbid obesity last seen June in for follow up on ulcers and diabetes.? In review of the notes, patient has been seen in [facility], [facility] as well as walk-in clinics numerous times over the last several months for wound care. Patient was recently admitted at [facility] 07/26/2024 for chronic wounds while admitted patient was consulted by Infectious Disease who did not feel the wounds were infected. Biopsy was taken of the wounds which showed nonspecific inflammation and recommended to follow up with Dermatology for possible diagnosis of pyoderma gangrenosum. Patient has VNA services coming in 3x per [facility] for dressing changes. She has an appointment with wound care September. She continues to have pain in bilateral ankles particularly around dressing changes. Her blood pressures at home have been normal and will usually spike around dressing changes due to pain. [facility] Medical History Hypertension Wound of lower extremity Venous stasis ulcer Chronic ulcer of left ankle Diabetes Hypertension Abnormal Pap smear of cervix Diabetes mellitus Hypertension Renal calculi Diastasis recti Dyslipidemia associated with type 2 diabetes mellitus Abdominal mass Microalbuminuria Renal calculi Morbid obesity Surgical History Hx of prior ablation treatment Family History Father Seizures Mother Seizures Congenital heart disease in adult Hypotension Maternal Grandfather Leukemia Social History Household Members: Family Housing: House Do you presently have visiting nurse or other home services: No Alcohol intake: current Alcohol intake frequency: holidays/special occasions only Alcohol type: wine Patient Tobacco Use Status: Former Tobacco user Tobacco use type: Cigarette e-Cigarette/Vaping Use: Never Used Second Hand Smoke Exposure: No Substance Use Type: Other service: No Current occupational status: employed Current occupational exposures/hazards: No Cognitive needs: No Hearing needs: No Vision needs: No Questionnaire Thrive Questionnaire Date Thrive assessed: 07/13/24 MARLYN-7 AMB Questionnaire MARLYN-7 Date MARLYN - 7 assessed: 07/25/24 Source: Developed by Drs. Cesar Snow, Ela Wiley, Benjamín Chino and colleagues, with an educational rio from [employer] reviews. Review of Systems Const Denies body aches, Denies chills, Denies fever(s) and Denies poor appetite Eyes Reports no additional complaints ENT Reports no additional complaints Card Denies chest pain, Denies lightheadedness and Denies dyspnea Resp Denies cough and Denies dyspnea GI Denies abdominal pain, Denies constipation, Denies diarrhea, Denies nausea and Denies vomiting Reports no additional complaints Musc Details: bilateral ankle pain surrounding wounds Reports no additional complaints and Reports abnormal gait Skin/Breast Reports system reviewed and no additional complaints, except as documented Neuro Reports abnormal gait Psych Reports no additional complaints Physical exam (Primary Care) Vital Signs: Last Vital Signs Pulse 92 08/14/24 14:21 BP 162/108 H 08/14/24 14:21 Pulse Ox 96 08/14/24 14:21 Oxygen Delivery Method Room Air 08/14/24 14:21 BMI result Body Mass Index 40.3 Tobacco/Smoking Status: Tobacco use Status Tobacco use date assessed 07/01/24 08/14/24 14:28 Patient Tobacco Use Status Former Tobacco user 08/14/24 14:28 Tobacco use type Cigarette 08/14/24 14:28 e-Cigarette/Vaping Use Never Used 08/14/24 14:28 Thrive Assessment: Date of Thrive Assessment Date Thrive assessed 07/13/24 08/14/24 14:28 Const General: cooperative, healthy appearing, comfortable and no acute distress Orientation/consciousness: patient oriented x3 HENMT Head: Yes normocephalic Ears: hearing grossly normal bilaterally General nose exam: Normal external nose present Eyes General: appearance normal, both eyes and all related structures Conjunctivae: conjunctivae normal Neck Neck: Yes full ROM and Yes no lymphadenopathy Resp Effort & Inspection: normal respiratory effort Auscultation: clear to auscultation bilaterally, no crackles, no rales, no rhonchi and no wheezes Cardio Rate: regular rate Rhythm: regular rhythm Skin Other: Presence of chronic wounds on medial aspect of left ankle and lateral aspect of right ankle. Wounds do not appear infected at this time with no drainage or erythema. Friable wound edges and extreme tenderness on exam Neuro General: patient oriented x3 Gait exam (Neuro): Normal gait present Extrem General: Yes normal to inspection, Yes full ROM and No edema Psych Affect: normal affect Attitude: cooperative Insight: Good insight present (Psych) Judgement: Good judgement present (Psych) Results AMB Hemoglobin A1c AMB Hemoglobin A1c 7.1 % Last Edit by ROMAIN Cardona on 08/14/24 14:32 Results Reviewed Results Reviewed: Laboratory Last Values Hgb A1c (Clinic) 7.1 % (4.0-6.0) H 08/14/24 13:07 Coding Level of Care Code Est Pt Level 3 (21364) Diagnoses Pyoderma gangrenosum L88 Dyslipidemia associated with type 2 diabetes mellitus E11.69; E78.5 Uncontrolled hypertension I10 Type 2 diabetes mellitus without complication, without long-term current use of insulin E11.9 Diabetes mellitus complication status: without complication Diabetes mellitus french cord binder insulin use: without french cord binder use Class 3 severe obesity due to excess calories without serious comorbidity with body mass index (BMI) of 45.0 to 49.9 in adult E66.01; Z68.42 Body mass index: BMI 45.0-49.9 Obesity classification: adult class 3 (BMI >= 40) Obesity type: due to excess calories Serious obesity comorbidity presence: without serious comorbidity Assessment & Plan Assessment & Plan (1) Pyoderma gangrenosum: Code(s): L88 - Pyoderma gangrenosum Category: Medical Plan: No definitive diagnosis was made at this time and referral was placed for Dermatology for further evaluation. Advised patient to follow with [facility] wound care. We will try to refer patient to [place] wound care for sooner appointment advised patient to reach out to the office as well. Wound care was consulted during this appointment and advised on wound care regimen which will be sent to the VNA. Dressings were changed in the office applied steroid cream around the edge of the wound, Xeroform dressing was coated with bacitracin and placed up against the wound and covered with nonadherent pads and wrapped with gauze wrapping. (2) Dyslipidemia associated with type 2 diabetes mellitus: Code(s): E11.69 - Type 2 diabetes mellitus with other specified complication; E78.5 - Hyperlipidemia, unspecified Category: Medical Plan: Avoid foods that are high in cholesterol such as red meat, fried foods, eggs and baked goods. Triglyceride goal of less than 150 and LDL goal of less than 100. Not currently on medical management (3) Uncontrolled hypertension: Code(s): I10 - Essential (primary) hypertension Category: Medical Plan: Continue on current blood pressure medication. Avoid salt intake and encourage healthy diet and regular exercise. Patient states her blood pressures at home have been normal advised to take blood pressure at home and bring log to next appointment for further evaluation. (4) DMII (diabetes mellitus, type 2): Code(s): E11.9 - Type 2 diabetes mellitus without complications Category: Medical Qualifiers: Diabetes mellitus complication status: without complication Diabetes mellitus french cord binder insulin use: without fpc use Qualified Code(s): E11.9 - Type 2 diabetes mellitus without complications Plan: Decrease the amount of carbohydrates such as pasta, bread, rice, and potatoes and limit the amount of sweets. Although fruits are generally healthy they should be eaten in moderation as they are still high in sugar. Hemoglobin A1c goal of less than 7%. (5) Obese: Code(s): E66.9 - Obesity, unspecified Category: Medical Qualifiers: Body mass index: BMI 45.0-49.9 Obesity classification: adult class 3 (BMI >= 40) Obesity type: due to excess calories Serious obesity comorbidity presence: without serious comorbidity Qualified Code(s): E66.01 - Morbid (severe) obesity due to excess calories; Z68.42 - Body mass index [BMI] 45.0- 49.9, adult Plan: Healthy diet and regular exercise is encouraged. Plan This note was constructed using voice recognition software. While every effort has been made to ensure accuracy and carbide grinder, still areas may have been included sometimes these areas may affect the content or meeting of the given symptoms. Total time spent caring for the patient today was 30 minutes. This includes time spent before the visit reviewing the chart, time spent during the visit, and time spent after the visit and documentation. Orders: Orders AMB Hemoglobin A1c 08/14/24 E11.9 - Type 2 diabetes mellitus without complications Referrals Dermatology Referral L88 - Pyoderma gangrenosum Medications: Refilled methocarbamol 500 mg PO TID PRN 20 tabs 0RF pain
[2024-08-14 14:21] VITALS: BP 162/108; PULSE 92; O2SAT 96; BMI 40.3
== END 2024-08-14 15:46 | disposition home or self-care (01) ==
LOC: HO.HMCH 14:11
PROVIDERS: PCP Internal Medicine
DX: E11.69 Type 2 diabetes mellitus with other specified complication (principal); E66.01 Morbid (severe) obesity due to excess calories; Z68.42 Body mass index [BMI] 45.0-49.9, adult; L88 Pyoderma gangrenosum; E78.5 Hyperlipidemia, unspecified; I10 Essential (primary) hypertension

== ENCOUNTER → 2024-08-14 14:11 | Outpatient (BNVA) | payer SELFPAY | PROVIDERS: PCP Internal Medicine | DX: E11.69 Type 2 diabetes mellitus with other specified complication (principal); E78.5 Hyperlipidemia, unspecified; L88 Pyoderma gangrenosum; I10 Essential (primary) hypertension; E66.01 Morbid (severe) obesity due to excess calories; Z68.42 Body mass index [BMI] 45.0-49.9, adult | CPT/HCPCS: 83036; 99212 ==

== ENCOUNTER 2024-08-28 14:00 | Outpatient (AMB) | payer SELFPAY ==
[2024-08-28 14:02] VITALS: BP 160/112; PULSE 105; O2SAT 97; BMI 39.3
--- NOTE | 2024-08-28 14:02 | A.OFFPC_ITS ---
Vital Signs 08/28/24 14:02 Height 5 ft 7 in Weight 251 lb 0.2 oz BMI 39.3 BP 160/112 H Blood Pressure Location Lt brachial Position Sitting Pulse 105 H Pulse Source Pulse Oximeter Pulse Oximetry (%) 97 Oxygen Delivery Method Room Air Intake Visit Reasons: f/u ulcers Allergies amlodipine Allergy (Intermediate, Verified 08/28/24 14:02) drowsiness, swelling of feet and ankles lisinopril Allergy (Intermediate, Verified 08/28/24 14:02) cough hydralazine Allergy (Verified 08/28/24 14:02) Swelling metformin Adverse Reaction (Verified 08/28/24 14:02) Diarrhea Lisinopril-Hydrochlorothiazide Adverse Reaction (Intermediate, Uncoded 08/28/24 14:02) Leg swelling Metoprolol Tartrate Adverse Reaction (Intermediate, Uncoded 08/28/24 14:02) Leg swelling Medication List - Last Reconciled 08/28/24 by Aliza Clemens PA-C albuterol sulfate 90 mcg/actuation 2 puffs inhalation Q6H PRN aspirin (Adult Aspirin Regimen) 81 mg PO DAILY 90 days betamethasone dipropionate 0.05% 1 appl topical BID carvedilol 6.25 mg See Protocol PO BID cholecalciferol (vitamin D3) 25 mcg PO DAILY clonidine HCl 0.2 mg PO TID compr.stocking,knee,long,large As directed ibuprofen 800 mg PO Q8H PRN losartan 50 mg See Protocol PO BID methocarbamol 500 mg PO TID PRN naloxone 4 mg/actuation intranasal potassium chloride ER 20 mEq PO DAILY tramadol 50 mg PO BID PRN tramadol 50 mg PO Q8H PRN Tobacco use date assessed: 07/01/24 Fall risk assessment: No Falls in past year Last assessed Fall Risk: 08/28/24 Dental Screening Dental Screen Date: 07/25/24 HPI f/u ulcers HPI Details 69-year-old female with past medical his tory of diabetes mellitus, hypertension, dyslipidemia, and morbid obesity last seen August coming in for follow up on ulcers and diabetes. [place] [facility] was unable to reach the patient on 3 separate occasions and was unable to make an appointment. Patient states she has VNA services coming in Monday for dressing changes and we will change the outer dressing on Monday and . She was unable to get into Dermatology. She is seeing [facility] [place] 09/16/2024. She has been having physical therapy in the home and blood pressures at home have been elevated with 160 systolic. FORMERLY [facility], [facility] Medical History Hypertension Wound of lower extremity Venous stasis ulcer Chronic ulcer of left ankle Diabetes Hypertension Abnormal Pap smear of cervix Diabetes mellitus Hypertension Renal calculi Diastasis recti Dyslipidemia associated with type 2 diabetes mellitus Abdominal mass Microalbuminuria Renal calculi Morbid obesity Surgical History Hx of prior ablation treatment Family History Father Seizures Mother Seizures Congenital heart disease in adult Hypotension Maternal Grandfather Leukemia Social History Household Members: Family Housing: House Do you presently have visiting nurse or other home services: No Alcohol intake: current Alcohol intake frequency: holidays/special occasions only Alcohol type: wine Patient Tobacco Use Status: Former Tobacco user Tobacco use type: Cigarette e-Cigarette/Vaping Use: Never Used Second Hand Smoke Exposure: No Substance Use Type: Other service: No Current occupational status: employed Current occupational exposures/hazards: No Cognitive needs: No Hearing needs: No Vision needs: No Questionnaire Thrive Questionnaire Date Thrive assessed: 07/13/24 AUDIT C Alcohol Use Questionnaire (AUDIT-C) 2. How many drinks containing alcohol do you have on a typical day when you are drinking?: 1 or 2 3. How often do you have six or more drinks on one occasion?: Never Total Score: 0 MARLYN-7 AMB Questionnaire MARLYN-7 Date MARLYN - 7 assessed: 07/25/24 Source: Developed by Drs. Cesar Snow, Ela Wiley, Benjamín Chino and colleagues, with an educational rio from [employer]. Review of Systems Const Denies body aches, Denies chills and Denies fever(s) Eyes Reports no additional complaints ENT Reports no additional complaints Card Denies chest pain, Denies syncope, Denies leg edema and Denies dyspnea Resp Denies dyspnea GI Reports no additional complaints Musc Details: Bilateral ankle pain Skin/Breast Reports system reviewed and no additional complaints, except as documented Neuro Denies syncope Physical exam (Primary Care) Vital Signs: Oxygen Delivery Method Room Air 08/28/24 14:02 Tobacco/Smoking Status: Tobacco use Status Tobacco use date assessed 07/01/24 08/28/24 14:03 Patient Tobacco Use Status Former Tobacco user 08/28/24 14:03 Tobacco use type Cigarette 08/28/24 14:03 e-Cigarette/Vaping Use Never Used 08/28/24 14:03 Thrive Assessment: Date of Thrive Assessment Date Thrive assessed 07/13/24 08/28/24 14:03 Const General: cooperative, healthy appearing, comfortable and no acute distress Orientation/consciousness: patient oriented x3 HENMT Head: Yes normocephalic Ears: hearing grossly normal bilaterally General nose exam: Normal external nose present Eyes General: appearance normal, both eyes and all related structures Conjunctivae: conjunctivae normal Neck Neck: Yes full ROM and Yes no lymphadenopathy Resp Effort & Inspection: normal respiratory effort Auscultation: clear to auscultation bilaterally, no crackles, no rales, no rh onchi and no wheezes Cardio Rate: regular rate Rhythm: regular rhythm Skin Other: Presence of chronic wounds on medial aspect of left ankle and lateral aspect of right ankle. Wounds do not appear infected at this time with no drainage or erythema. Friable wound edges and extreme tenderness on exam Neuro General: patient oriented x3 Gait exam (Neuro): Normal gait present Extrem General: Yes normal to inspection, Yes full ROM and No edema Psych Affect: normal affect Attitude: cooperative Insight: Good insight present (Psych) Judgement: Good judgement present (Psych) Coding Level of Care Code Est Pt Level 4 (17303) Diagnoses Pyoderma gangrenosum L88 Dyslipidemia associated with type 2 diabetes mellitus E11.69; E78.5 Uncontrolled hypertension I10 Type 2 diabetes mellitus without complication, without long-term current use of insulin E11.9 Diabetes mellitus terminal make up operator insulin use: without terminal make up operator use Diabetes mellitus complication status: without complication Assessment & Plan Assessment & Plan (1) Pyoderma gangrenosum: Code(s): L88 - Pyoderma gangrenosum Category: Medical Plan: No definitive diagnosis at this time. Patient was seen at [facility] with suspected pyoderma gangrenosum diagnosis made after biopsy revealed nonspecific inflammation. Advised patient to reach out to [place] [facility] for scheduling of appointment. We will refer to vascular surgery for evaluation. Wounds were dressed today with Xeroform coated with bacitracin against the wound itself which was then covered with nonadherent dressings and wrapped with sterile gauze. Advised patient to use gentamicin ointment going forward for additional antimicrobial coverage. (2) Dyslipidemia associated with type 2 diabetes mellitus: Code(s): E11.69 - Type 2 diabetes mellitus with other specified complication; E78.5 - Hyperlipidemia, unspecified Category: Medical Plan: Avoid foods that are high in cholesterol such as red meat, fried foods, eggs and baked goods. Triglyceride goal of less than 150 and LDL goal of less than 100. (3) Uncontrolled hypertension: Code(s): I10 - Essential (primary) hypertension Category: Medical Plan: Continue on current blood pressure medication. Avoid salt intake and encourage healthy diet and regular exercise. Patient states her blood pressures at home have been in the 160 systolic range. She has not been taking the carvedilol b.i.d.. Advised patient to add this medication to her regimen and monitor the blood pressure and heart rate. If she becomes lightheaded dizzy please reach out to the office and discontinue this medication. If blood pressure remains uncontrolled we will refer to Nephrology. (4) DMII (diabetes mellitus, type 2): Code(s): E11.9 - Type 2 diabetes mellitus without complications Category: Medical Qualifiers: Diabetes mellitus terminal make up operator insulin use: without terminal make up operator use Diabetes mellitus complication status: without complication Qualified Code(s): E11.9 - Type 2 diabetes mellitus without complications Plan: Decrease the amount of carbohydrates such as pasta, bread, rice, and potatoes and limit the amount of sweets. Although fruits are generally healthy they should be eaten in moderation as they are still high in sugar. Hemoglobin A1c goal of less than 7%. Plan This note was constructed using voice recognition software. While every effort has been made to ensure accuracy and mitten stitcher, still areas may have been included sometimes these areas may affect the content or meeting of the given symptoms. Total time spent caring for the patient today was 30 minutes. This includes time spent before the visit reviewing the chart, time spent during the visit, and time spent after the visit and documentation. 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
== END 2024-08-28 15:05 | disposition home or self-care (01) ==
PROVIDERS: PCP Internal Medicine
DX: E11.69 Type 2 diabetes mellitus with other specified complication (principal); L88 Pyoderma gangrenosum; E78.5 Hyperlipidemia, unspecified; I10 Essential (primary) hypertension

== ENCOUNTER → 2024-08-28 14:00 | Outpatient (BNVA) | payer SELFPAY | PROVIDERS: PCP Internal Medicine | DX: L88 Pyoderma gangrenosum (principal); E11.69 Type 2 diabetes mellitus with other specified complication; E78.5 Hyperlipidemia, unspecified; I10 Essential (primary) hypertension; M31.30 Wegener's granulomatosis without renal involvement | CPT/HCPCS: 99212 ==

== ENCOUNTER 2024-09-11 11:16 | Emergency (ER) | payer MEDICARE, SELFPAY ==
[2024-09-11] VITALS (7 sets, daily range): BP systolic 123–161; BP diastolic 73–95; PULSE 63–88; RESP 13–18; TEMP 36.5–36.7; O2SAT 94–97; BMI 39.2
--- NOTE | 2024-09-11 | ECG_ITS ---
Test Reason : SYNCOPE Blood Pressure : / mmHG Vent. Rate : 074 BPM Atrial Rate : 074 BPM P-R Int : 242 ms QRS Dur : 164 ms QT Int : 450 ms P-R-T Axes : -02 -48 032 degrees QTc Int : 499 ms Sinus rhythm with 1st degree A-V block with occasional Premature ventricular complexes Right bundle branch block Left anterior fascicular block Bifascicular block Left ventricular hypertrophy with repolarization abnormality ( R in aVL ) Abnormal ECG When compared with ECG of 12-JUL-2024 12:43, Premature ventricular complexes are now Present Referred By: Generic ED Physician Electronically Signed By:Aman Fuchs
--- NOTE | ~2024-09-11 | CT_ITS ---
EXAMINATION: CT ANGIOGRAM CHEST CLINICAL INFORMATION: Syncope. COMPARISON: None available. TECHNIQUE: Multiple axial images were obtained through the chest after the administration of 70 mL of Omnipaque 350 intravenous contrast. Extensive vascular post-processing including two-dimensional and three-dimensional reformatted images were created and reviewed on an independent workstation. This CT examination was performed using dose optimization techniques as appropriate, variously including the following: *Automated exposure control *Adjustment of mA and/or kV according to patient size (this includes techniques or standardized protocols for targeted exams where dose is matched to indication/reason for exam; i.e. extremities or head) *Use of iterative reconstruction technique DLP: 460 mGy-cm FINDINGS: QUALITY OF STUDY/CONTRAST BOLUS: Satisfactory. PULMONARY ARTERIES: No pulmonary embolus identified. THORACIC AORTA: No aneurysm. LUNG: Limited by suboptimal inspiration and motion. Suspect mild mosaic lung parenchymal density, left greater than right. No focal consolidation or nodule identified. PLEURA: No pleural effusion or pneumothorax appreciated. MEDIASTINUM: Mild to moderate cardiomegaly. Suspect left ventricular hypertrophy. No pericardial effusion. Uncoiled aorta, suggesting hypertension. No hilar or mediastinal lymphadenopathy by size criteria. No evidence of septal bowing or right heart strain. CORONARY ARTERY CALCIFICATION: Mild. CHEST WALL/AXILLA: No axillary or internal mammary lymphadenopathy by size criteria. OSSEOUS STRUCTURES: No acute or suspicious osseous finding. UPPER ABDOMEN: Calcified splenic and hepatic granulomata. No reflux of contrast into the hepatic veins to suggest elevated right heart pressures. CT/CT angio chest PE protocol IMPRESSION: No pulmonary embolism identified. Suspect mild mosaic lung parenchymal density, left greater than right, raising the possibility of small airways disease. Mild to moderate cardiomegaly. Suspect left ventricular hypertrophy. Uncoiled aorta, suggesting hypertension. VTE: negative Electronically signed by: Jose Maria Tolbert MD 09/11/2024 03:37 PM [facility] [place]
--- NOTE | ~2024-09-11 | US_ITS ---
EXAMINATION: US TRIPLEX LOWER EXTREMITY, BILATERAL CLINICAL INFORMATION: Bilateral lower extremity edema COMPARISON: 06/09/2024, 05/26/2024 TECHNIQUE: Color-flow triplex imaging with spectral analysis and compression Doppler were performed on the bilateral lower extremities. FINDINGS: Respiratory variation, normal compression and augmented flow are noted throughout the bilateral lower extremities. The visualized common femoral vein, superficial femoral vein, profunda femoral vein, popliteal vein and midcalf peroneal and posterior tibial venous segments show no evidence of deep venous thrombosis bilaterally. There is no Hobson's cyst. US/US venous duplex LE BI IMPRESSION: No evidence of deep venous thrombosis involving the bilateral lower extremities. Electronically signed by: Micah Squires MD 09/11/2024 02:05 PM [facility]
--- NOTE | 2024-09-11 11:59 | ED.SYNCOPE ---
HPI - Syncope General Chief Complaint: Syncope Stated Complaint: SYNCOPAL EPISODE WHILE HAVING BANDAGE CHANGED Time Seen by Provider: 09/11/24 11:54 Source: patient, EMS and old records reviewed Mode of arrival: EMS Limitations: no limitations History of Present Illness ED Provider: JACKELYN JONES narrative: 69 yo female with DM, HLD, HTN, obese, possible pyoderma gangrenosum not on blood thinners here with c/o her legs being very painful today she was sitting down with her dressings getting changed when she had 7/10 leg pain and felt herself about to pass out. She warned the VNA she has a possible dx of PG but has not been able to get biopsy or go to wound center or derm. She notes no recent CP/SOB but did run out of her tramadol. EMS noted when she was passed out O2 sats dropped to 50. Patient denies any recent CP/SOB, GIB, n/v/d, fevers. She has leg pain now but no other injuries and no falls. 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) -: minutes(s) Prodromal symptoms: vision changes and lightheaded Witnessed: Yes - by Bystander Context: at rest Injuries sustained associated with event: none Current symptoms: back to baseline History: other (was having increased leg pain) Treatments prior to arrival: none Related Data Home Medications ?Medication ?Instructions ?Recorded ?Confirmed albuterol sulfate 90 mcg/actuation 2 puff inhalation Q6H PRN Wheezing 02/10/21 08/28/24 aerosol inhaler cholecalciferol (vitamin D3) 25 25 mcg PO DAILY 01/11/24 08/28/24 mcg (1,000 unit) tablet clonidine HCl 0.1 mg tablet 0.2 mg PO TID 07/12/24 08/28/24 betamethasone dipropionate 0.05 % 1 appl topical BID 08/14/24 08/28/24 topical cream naloxone 4 mg/actuation nasal spray intranasal 08/14/24 08/28/24 Previous Rx's ?Medication ?Instructions ?Recorded aspirin 81 mg tablet,delayed 81 mg PO DAILY 90 days #90 tabs 02/10/21 release (Adult Aspirin Regimen) compr.stocking,knee,long,large #2 ea 03/11/21 potassium chloride 20 mEq 20 meq PO DAILY #14 tabs 07/09/24 tablet,extended release losartan 50 mg tablet 50 mg PO BID #180 tabs 07/15/24 carvedilol 6.25 mg tablet 6.25 mg PO BID #180 tabs 08/28/24 gentamicin 0.1 % topical ointment 1 appl topical DAILY #15 grams 08/28/24 gabapentin 100 mg capsule 100 mg PO BEDTIME #30 caps 08/29/24 methocarbamol 500 mg tablet 500 mg PO TID PRN for pain #20 tabs 09/02/24 tramadol 50 mg tablet 50 mg PO Q8H PRN pain (scale score 09/04/24 7-10) #14 tabs ibuprofen 800 mg tablet 800 mg PO Q8H PRN pain 30 days #90 09/10/24 tabs morphine 15 mg immediate release 15 mg PO Q8H PRN pain #20 tabs 09/11/24 tablet Allergies Allergy/AdvReac Type Severity Reaction Status Date / Time amlodipine Allergy Intermediate drowsiness, Verified 09/11/24 11:24 swelling of feet and ankles lisinopril Allergy Intermediate cough Verified 09/11/24 11:24 hydralazine Allergy Swelling Verified 09/11/24 11:24 metformin AdvReac Diarrhea Verified 09/11/24 11:24 Lisinopril-Hydrochlorothiazide AdvReac Intermediate Leg Uncoded 09/11/24 11:24 swelling Metoprolol Tartrate AdvReac Intermediate Leg Uncoded 09/11/24 11:24 swelling Review of Systems Review of Systems: Constitutional : No Fever, No Chills ENT/Mouth : No Ear Pain, No Hoarseness, No sore throat Eyes: No Eye Pain, No Swelling, No Redness, No Foreign Body Cardiovascular : No Chest Pain, No SOB Respiratory : No Cough, No Dyspnea Gastrointestinal : No Nausea, No Vomiting, No Diarrhea, No abdominal Pain Genitourinary : No Dysuria, No Hematuria Musculoskeletal : positive joint pain, pos Myalgias, No Joint Swelling Skin : No Skin lacerations, No rash, pos skin lesions Neuro : No Weakness, No Numbness, No Loss of Consciousness, No Dizziness, No Headache All other systems reviewed and are negative PMFSH Past Medical History Attestation statement: The following information was validated with the patient. Source: old records reviewed Medical History Hypertension Wound of lower extremity Venous stasis ulcer Chronic ulcer of left ankle Diabetes Hypertension Abnormal Pap smear of cervix Diabetes mellitus Hypertension Renal calculi Diastasis recti Dyslipidemia associated with type 2 diabetes mellitus Abdominal mass Microalbuminuria Renal calculi Morbid obesity Surgical History Hx of prior ablation treatment Family History Family History Father Seizures Mother Seizures Congenital heart disease in adult Hypotension Maternal Grandfather Leukemia Social History Social History Household Members: Family Housing: House Do you presently have visiting nurse or other home services: No Alcohol intake: current Alcohol intake frequency: holidays/special occasions only Alcohol type: wine Patient Tobacco Use Status: Former Tobacco user Tobacco use type: Cigarette Smoked in Last 30 Days: No e-Cigarette/Vaping Use: Never Used Second Hand Smoke Exposure: No Use of substances other than those prescribed or required for medical reasons: No Substance Use Type: Other Advance Directives: No Advance Directives Information Provided: Yes Do you have a plan to hurt others: No Plan service: No Current occupational status: employed Current occupational exposures/hazards: No Cognitive needs: No Hearing needs: No Vision needs: No Physical Exam Vital Signs: Vital Signs: Last Vital Signs Temp 97.7 F 09/11/24 11:22 Pulse 81 09/11/24 15:45 Resp 13 09/11/24 15:45 BP 143/95 H 09/11/24 15:45 Pulse Ox 97 09/11/24 15:45 O2 Del Method Room Air 09/11/24 15:45 BMI result Body Mass Index 39.2 Appearance: Alert. Oriented X3. No acute distress. Eyes: Pupils equal, round and reactive to light. ENT: Pharynx normal. Neck: Normal inspection. Neck supple. CVS: Normal heart rate and rhythm. Pulses normal. Respiratory: No respiratory distress. Breath sounds normal. Abdomen: Soft and non-tender. Skin: Skin warm and dry. Normal skin color. Normal skin turgor. Extremities: leg trace edema both ankles, wounds on both legs Neuro: Oriented X 3. No motor deficit. No sensory deficit. Medications Administered Discontinued Medications Generic Name Dose Route Start Last Admin Trade Name Freq PRN Reason Stop Dose Admin Iohexol 100 ml 09/11/24 14:16 09/11/24 14:16 Iohexol 350 Mg/Ml 100 Ml Infus..Btl IV 09/11/24 14:17 70 ml ONCE ONE Administration Morphine Sulfate 2 mg 09/11/24 12:36 09/11/24 12:49 Morphine Sulfate 2 Mg/Ml Cartridge IVPUSH 09/11/24 12:37 2 mg ONCE ONE Administration Protocol Morphine Sulfate 15 mg 09/11/24 17:28 09/11/24 17:44 Morphine Sulfate Immed Release 15 Mg Tablet PO 09/11/24 17:29 15 mg ONCE ONE Administration Potassium Chloride 20 meq 09/11/24 16:45 09/11/24 17:11 Potassium Chloride Er 20 Meq Tab.Er.Prt PO 09/11/24 16:46 20 meq ONCE ONE Administration Tramadol HCl 50 mg 09/11/24 12:36 09/11/24 12:49 Tramadol Hcl 50 Mg Tablet PO 09/11/24 12:37 50 mg ONCE ONE Administration Medical Decision Making Medical Decision Making [facility] Narrative: 69 yo female with DM, HLD, HTN, obese, pyoderma gangrenosum not on blood thinners here with c/o syncope she blames it occurred during intense leg pain she is high risk for additional issues such as VTE or ACS - I have ordered labs, DVT studies, IV morphine for pain and CTA for PE. Repeat labs ordered. Differential Diagnosis Differential Diagnoses: The differential diagnosis associated with the presentation includes syncope, VTE, ACS though she does not report any symptoms she is very high risk for VTE Admission/Observation Consideration of admission/observation: Escalation of care including admission/observation considered trop flat x 2 ortho VS negative CTA negative feels better I really feel like she passed out due to pain from her wound care as she had prodrome before and remebers having severe pain before passing this does not sound cardiogenic in nature. suspect due to LVH Lab Data [facility] Lab Attestation statement: I reviewed the patient's lab results. 09/11/24 12:13 09/11/24 12:13 Labs: Lab Results 09/11/24 09/11/24 Range/Units 12:13 14:37 WBC 7.2 (4.8-10.8) X10*3/uL RBC 4.22 (4.20-5.50) X10*6/uL Hgb 12.4 (12.0-16.0) g/dl Hct 37.1 (37.0-47.0) % MCV 87.9 (80.0-98.0) fL MCH 29.4 (27.0-33.0) pg MCHC 33.4 (31.0-35.0) g/dl RDW 13.2 (11.0-16.0) % Plt Count 257 (160-400) X10*3/uL MPV 9.3 L (9.4-12.3) fL Immature Gran % (Auto) 0.3 (0.0-0.4) % Neut % (Auto) 64.4 (45-73) % Lymph % (Auto) 23.6 (20-40) % [place] % (Auto) 6.8 (2-11) % Eos % (Auto) 4.3 H (0-4) % Baso % (Auto) 0.6 (0-2) % Lymph # (Auto) 1.7 (1.2-4.9) X10*3/uL [place] # (Auto) 0.5 (0.1-1.2) X10*3/uL Eos # (Auto) 0.3 (0.0-0.4) X10*3/uL Baso # (Auto) 0.0 (0.0-0.2) X10*3/uL Abs Immat Gran (auto) 0.02 (0.00-0.03) X10*3/uL Absolute Neuts (auto) 4.6 (2.0-8.3) x10*3/uL Absolute Nucleated RBC 0.000 (0.0-0.012) X10*3/uL Nucleated RBC % (auto) 0.0 (0.0-0.2) /100WBC PT 12.7 H (10.9-12.4) SEC INR 1.1 (0.9-1.1) Sodium 145 (135-145) mmol/L Potassium 3.2 L (3.3-5.1) mmol/L Chloride 105 (96-108) mmol/L Carbon Dioxide 33 H (22-29) mmol/L Anion Gap 10 L (12-20) BUN 20 H (9-16) mg/dL Creatinine 1.30 (0.5-1.4) mg/dL Estim Creat Clear Calc 53.8 Estimated GFR 41 Random Glucose 205 H (60-115) mg/dL Calcium 10.2 D (8.4-10.2) mg/dL Magnesium 1.8 (1.6-2.6) mg/dL Total Bilirubin 0.3 (0.0-1.0) mg/dL Direct Bilirubin 0.2 (0.0-0.5) mg/dL AST 18 (5-31) U/L ALT 9 (0-31) U/L Alkaline Phosphatase 64 (39-117) U/L Troponin I High Sens 27.9 H D 25.0 H (<3.5-17.0) ng/L B-Natriuretic Peptide 79 (<100) pg/mL Total Protein 7.1 (6.5-8.0) g/dL Albumin 3.5 (3.5-5.0) g/dL Lipase 8 (8-78) U/L Independent Interpretation I performed an independent interpretation of an: EKG, Ultrasound (no clot) and CT Scan (no clot) Interpretation: Rate: 74 Rhythm: NSR [place]: left Normal P waves. 1st degree AVB RBBB ST T wave : no LISA, ST depressions I and aVL, no LISA, inverted t waves anterior leads qTC: 499 prior studies: no change from prior The study has been interpreted contemporaneously by me. . Radiology Impression Discussion of test interpretation with radiology: I have reviewed the radiologist's reading. Independent Historian Clinical information obtained from an independent historian. History obtained from or confirmed by: EMS External Record Review External record reviewed: Outpatient record Prescription Management I considered prescription management with: Pain Medication and Other Discharge Plan Discharge Clinical Impression: Vasovagal syncope, Acute hypokalemia Patient Disposition: Home, Self-Care Instructions: Hypokalemia (ED), Syncope (ED) Additional Instructions: repeat labs reassuring no blood clot in legs or lungs no mass in lungs she needs to take pain medications with wound changes return at any time for any worsening symptoms Prescriptions: New morphine 15 mg tablet 15 mg PO Q8H PRN (Reason: pain) Qty: 20 0RF Rx Instructions: Partial Fill upon patient request. No Action gabapentin 100 mg capsule 100 mg PO BEDTIME Qty: 30 0RF methocarbamol 500 mg tablet 500 mg PO TID PRN (Reason: for pain) Qty: 20 0RF tramadol 50 mg tablet 50 mg PO Q8H PRN (Reason: pain (scale score 7-10)) Qty: 14 0RF ibuprofen 800 mg tablet 800 mg PO Q8H PRN (Reason: pain) 30 Days Qty: 90 1RF potassium chloride 20 mEq tablet extended release 20 meq PO DAILY Qty: 14 0RF cholecalciferol (vitamin D3) 25 mcg (1,000 unit) Tablet 25 mcg PO DAILY clonidine HCl 0.1 mg tablet 0.2 mg PO TID losartan 50 mg Tablet 50 mg PO BID Qty: 180 0RF Protocol: Hold for SBP< HOLD for SBP < : 90 albuterol sulfate 90 mcg/actuation HFA aerosol inhaler 2 puff inhalation Q6H PRN (Reason: Wheezing) aspirin [Adult Aspirin Regimen] 81 mg tablet,delayed release (DR/EC) 81 mg PO DAILY 90 Days Qty: 90 2RF (DME) compr.stocking,knee,long,large Misc See Rx Instructions .ROUTE .MEDSUPPLY Qty: 2 0RF Rx Instructions: As directed betamethasone dipropionate 0.05 % cream 1 appl topical BID naloxone 4 mg/actuation spray,non-aerosol intranasal gentamicin 0.1 % ointment 1 appl topical DAILY Qty: 15 0RF carvedilol 6.25 mg tablet 6.25 mg PO BID Qty: 180 1RF Protocol: Hold for SBP/HR < HOLD for SBP < : 90 HOLD for HR < : 60 Referrals: [facility] [Provider Group] Print Language: Peruvian
[2024-09-11 12:17] LABS: MANUAL DIFF FLAG NO
[2024-09-11 12:19] LABS: Basophils Percent Auto 0.6 % (0-2); Eosinophils Absolute Auto 0.3 X10*3/uL (0.0-0.4); Eosinophils Percent Auto 4.3 % (0-4); Hematocrit 37.1 % (37.0-47.0); Hemoglobin 12.4 g/dl (12.0-16.0); Imm Gran Abs Auto 0.02 X10*3/uL (0.00-0.03); Imm Gran Pct Auto 0.3 % (0.0-0.4); Lymphocytes Absolute Auto 1.7 X10*3/uL (1.2-4.9); Lymphocytes Percent Auto 23.6 % (20-40); Mean Corpuscular HGB Conc 33.4 g/dl (31.0-35.0); Mean Corpuscular Hemoglobin 29.4 pg (27.0-33.0); Mean Corpuscular Volume 87.9 fL (80.0-98.0); Mean Platelet Volume 9.3 fL (9.4-12.3); Monocytes Absolute Auto 0.5 X10*3/uL (0.1-1.2); Monocytes Percent Auto 6.8 % (2-11); Neutrophils Absolute Auto 4.6 x10*3/uL (2.0-8.3); Neutrophils Percent Auto 64.4 % (45-73); Platelet Count 257 X10*3/uL (160-400); Red Blood Count 4.22 X10*6/uL (4.20-5.50); Red Cell Distribution Width 13.2 % (11.0-16.0); White Blood Count 7.2 X10*3/uL (4.8-10.8)
[2024-09-11 12:25] LABS: INTERNATIONAL NORM RATIO 1.1 (0.9-1.1); Prothrombin Time 12.7 SEC (10.9-12.4)
[2024-09-11 12:32] LABS: Alanine Aminotransferase 9 U/L (0-31); Albumin Level 3.5 g/dL (3.5-5.0); Alkaline Phosphatase 64 U/L (39-117); Anion Gap 10 (12-20); Aspartate Amino Transferase 18 U/L (5-31); Bilirubin Direct 0.2 mg/dL (0.0-0.5); Bilirubin Total 0.3 mg/dL (0.0-1.0); Blood Urea Nitrogen 20 mg/dL (9-16); Calcium 10.2 mg/dL (8.4-10.2); Carbon Dioxide 33 mmol/L (22-29); Chloride 105 mmol/L (96-108); Creatinine Clr Calc Pharmacy 53.8; Estimated Glomerular Filt Rate 41; Glucose Random 205 mg/dL (60-115); Lipase 8 U/L (8-78); Magnesium 1.8 mg/dL (1.6-2.6); Potassium 3.2 mmol/L (3.3-5.1); Sodium 145 mmol/L (135-145); Total Protein 7.1 g/dL (6.5-8.0)
[2024-09-11 12:38] LABS: B Type Natriuretic Peptide 79 pg/mL (<100)
[2024-09-11 12:39] LABS: Troponin-I High Sensitivity 27.9 ng/L (<3.5-17.0)
[2024-09-11] MEDS: traMADoL HCL 50 MG TABLET PO (12:49)
[2024-09-11] MEDS: Morphine Sulfate 2 MG/ML CARTRIDGE IVPUSH (12:49)
[2024-09-11] MEDS: iohexoL 350 MG/ML 100 ML INFUS..BTL IV (14:16)
[2024-09-11] MEDS: Potassium Chloride ER 20 MEQ TAB.ER.PRT PO (17:11)
--- NOTE | 2024-09-11 17:36 | MHC.CM.ED ---
CM met with patient at the request of Dr. Weaver. Pt is A&Ox3. States her son and daughter live with her. Has [facility] for wound care. Per provider, patient has had issues with securing appointment at Wound Care. Pt uses [facility] on [address] for her pharmacy. Pt only has Medicare Part A. Pt tells CM that [facility] is working with her on securing [facility]. Pt is not active with [facility]. Pt will be discharged to home with existing services. [facility]
[2024-09-11] MEDS: Morphine Sulfate Immed Release 15 MG TABLET PO (17:44)
--- OUTSIDE RECORDS SUMMARY | 2024-09-17 18:15 | XMS_ITS | Clinical Summary ---
Author Organization Unknown Care Team Providers Care Coupling Machine Operator Name Role Phone NOELLE RUSSELL MD, REBECA Unavailable Unavailable YI ALEXIS, CLINICAL SUPERVISOR POLISHING, ELISHA Un available Unavailable FABRICE FARR, DUANE Unavailable Unavailable Payers Payer Name Policy Type Policy Number Effective Date Expira tion Date MEDICARE - NGS [place] - PDGM [id number] Problems Condition Name Condition Details Condition Category Status Onset Date Resolution Date Last Treatment Date Treating Clinician Comments PYODERMA GANGRENOSUM Active 10-09 00:00: 00 TYPE 2 DIABETES MELLITUS WITH DIABETIC NEUROPATHY, UNSP Active 10-09 00:00: 00 TYPE 2 DIABETES W DIABETIC PERIPHERAL ANGIOPATH W/O GANGRENE Active 10-09 00:00: 00 VENOUS INSUFFICIENC Y (CHRONIC) (PERIPHERAL) Active 10-09 00:00: 00 NON-PRS CHRONIC ULCER OTH PRT R LOW LEG W FAT LAYER EXPOSED Active 10-09 00:00: 00 NON-PRS CHRONIC ULCER OTH PRT L LOW LEG W FAT LAYER EXPOSED Active 10-09 00:00: 00 MORBID (SEVERE) OBESITY DUE TO EXCESS CALORIES Active 10-09 00:00: 00 BODY MASS INDEX [BMI] 39.0-39.9, ADULT Active 10-09 00:00: 00 TYPE 2 DIABETES MELLITUS WITH OTHER SPECIFIED COMPLICATION Active 10-09 00:00: 00 HYPERLIPIDEM IA, UNSPECIFIED Active 10-09 00:00: 00 ESSENTIAL (PRIMARY) HYPERTENSION Active 10-09 00:00: 00 OBSTRUCTIVE SLEEP APNEA (ADULT) (PEDIATRIC) Active 10-09 00:00: 00 HYPERTENSIVE URGENCY Active 10-09 00:00: 00 PERSONAL HISTORY OF NICOTINE DEPENDENCE Active 10-09 00:00: 00 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 Ordering Clinician Indication Dosage Frequency Signature (SIG) Comments Components cefadroxil 500 mg capsule 2023-10 00:00: 00 08-01 23:59 :00 No [id number] Per instruc tions TWICE A DAY FOR 7 DAYS Per instructio ns TWICE A DAY FOR 7 DAYS (route: oral) Med Classific ation: Anti-Infe ctive Agents ibuprofen 800 mg tablet 2023-10 00:00: 00 08-01 23:59 :00 No [id number] Per instruc tions EVERY 8 HOURS NEEDED Per instructio ns EVERY 8 HOURS NEEDED (route: oral) Med Classific ation: Analgesic , Anti-infl ammatory or Antipyret ic levofloxaci n 750 mg tablet 2023-10 00:00: 00 08-01 23:59 :00 No [id number] Per instruc tions EVERY DAY FOR 7 DAYS Per instructio ns EVERY DAY FOR 7 DAYS (route: oral) Med Classific ation: Anti-Infe ctive Agents methocarbam ol 500 mg tablet 2023-10 00:00: 00 08-01 23:59 :00 No [id number] Per instruc tions THREE TIMES A DAY NEEDED Per instructio ns THREE TIMES A DAY NEEDED (route: oral) Med Classific ation: Locomotor System clonidine HCl 0.2 mg tablet 2023-10 00:00: 00 08-01 23:59 :00 No [id number] Per instruc tions 3 TIMES A DAY Per instructio ns 3 TIMES A DAY (route: oral) Med Classific ation: Cardiovas cular Therapy Agents potassium chloride ER 20 mEq tablet,exte nded release 2023-10 0 00:00: 00 08-01 23:59 :00 No [id number] Per instruc tions EVERY DAY Per instructio ns EVERY DAY (route: oral) Med Classific ation: Electroly te Balance-N utritiona l Products Santyl 250 unit/gram topical ointment 07-04 00:00: 00 07-17 00:00 :00 No [id number] Per instruc tions Per instructio ns (route: topical) Med Classific ation: Dermatolo gical clonidine HCl 0.1 mg tablet 06-21 00:00: 00 07-17 00:00 :00 No [id number] Per instruc tions TWICE A DAY FOR 90 DAYS Per instructio ns TWICE A DAY FOR 90 DAYS (route: oral) Med Classific ation: Cardiovas cular Therapy Agents albuterol sulfate HFA 90 mcg/actuati on aerosol inhaler 2023-10 00:00: 00 08-01 23:59 :00 No [id number] 2 puff EVERY 6 HOURS 2 puff EVERY 6 HOURS (route: inhalation ) Med Classific ation: Respirato ry Therapy Agents Aspirin Childrens 81 mg chewable tablet 2023-10 00:00: 00 08-01 23:59 :00 No [id number] 1 tablet DAILY 1 tablet DAILY (route: oral) Med Classific ation: Hematolog ical Agents metformin 500 mg tablet 2023-10 00:00: 00 08-01 23:59 :00 No [id number] 1 tablet 2 TIMES DAILY 1 tablet 2 TIMES DAILY (route: oral) Med Classific ation: Endocrine tramadol 50 mg tablet 2023-10 00:00: 00 08-01 23:59 :00 No [id number] 1 tablet 2 TIMES DAILY 1 tablet 2 TIMES DAILY (route: oral) Med Classific ation: Analgesic , Anti-infl ammatory or Antipyret ic Vitamin D3 25 mcg (1,000 unit) capsule 2023-10 00:00: 00 08-01 23:59 :00 No [id number] 1 capsule DAILY 1 capsule DAILY (route: oral) Med Classific ation: Electroly te Balance-N utritiona l Products aspirin 81 mg tablet,claire yed release 2023-10 00:00: 00 Yes [id number] 1 tablet DAILY 1 tablet DAILY (route: oral) Med Classific ation: Hematolog ical Agents betamethaso ne dipropionat e 0.05 % topical ointment 2023-10 00:00: 00 Yes [id number] Per instruc tions DAILY Per instructio ns DAILY (route: topical) Med Classific ation: Dermatolo gical carvedilol 6.25 mg tablet 2023-10 00:00: 00 Yes [id number] 1 tablet 2 TIMES DAILY 1 tablet 2 TIMES DAILY (route: oral) Med Classific ation: Cardiovas cular Therapy Agents clonidine HCl 0.2 mg tablet 2023-10 00:00: 00 Yes [id number] 1 tablet 3 TIMES DAILY 1 tablet 3 TIMES DAILY (route: oral) Med Classific ation: Cardiovas cular Therapy Agents losartan 50 mg tablet 2023-10 00:00: 00 Yes [id number] 1 tablet DAILY 1 tablet DAILY (route: oral) Med Classific ation: Cardiovas cular Therapy Agents naloxone 4 mg/actuatio n nasal spray 2023-10 00:00: 00 Yes [id number] 1 spray DIRECTED 1 spray DIRECTED (route: nasal) Med Classific ation: Antidotes and other Reversal Agents tramadol 50 mg tablet 2023-10 00:00: 00 Yes [id number] 1 tablet EVERY 6 HOURS 1 tablet EVERY 6 HOURS (route: oral) Med Classific ation: Analgesic , Anti-infl ammatory or Antipyret ic methocarbam ol 500 mg tablet 2023-10 00:00: 00 Yes [id number] 1 tablet 3 TIMES DAILY 1 tablet 3 TIMES DAILY (route: oral) Med Classific ation: Locomotor System gabapentin 100 mg capsule 2023-10 00:00: 00 Yes [id number] 1 capsule BEDTIME 1 capsule BEDTIME (route: oral) Med Classific ation: Central Nervous System Agents gentamicin 0.1 % topical ointment 2023-10 00:00: 00 Yes [id number] Per instruc tions DAILY Per instructio ns DAILY (route: topical) Med Classific ation: Dermatolo gical Vital Signs Vital Name Observation Time Observation Value Commen ts Temperature 2024-09-13 10:50:00.000 97.9 [degF] Temperature 2024-09-11 10:10:00.000 98 [degF] Temperature 2024-09-10 12:13:00.000 98.4 [degF] Temperature 2024-09-09 09:59:00.000 97.6 [degF] Temperature 2024-09-06 10:34:00.000 97.6 [degF] Temperature 2024-09-04 10:35:00.000 98.7 [degF] Temperature 2024-09-02 12:39:00.000 98.3 [degF] Temperature 2024-09-02 12:25:00.000 98.3 [degF] Temperature 2024-08-30 12:01:00.000 98.4 [degF] Temperature 2024-08-29 11:22:00.000 98.2 [degF] Temperature 2024-08-26 10:03:00.000 97.1 [degF] Temperature 2024-08-23 12:12:00.000 98 [degF] Temperature 2024-08-22 11:10:00.000 98.5 [degF] Temperature 2024-08-21 10:52:00.000 97.2 [degF] Temperature 2024-08-19 10:24:00.000 97.1 [degF] Temperature 2024-08-16 10:17:00.000 97.2 [degF] Temperature 2024-08-15 11:05:00.000 98.5 [degF] Temperature 2024-08-12 10:40:00.000 97.5 [degF] Temperature 2024-08-08 16:59:00.000 98.5 [degF] Temperature 2024-08-08 11:02:00.000 98 [degF] Temperature 2024-08-06 12:34:00.000 97.5 [degF] Temperature 2024-08-04 15:17:00.000 97.8 [degF] BMI (%) 2024-08-04 15:17:00.000 40 kg/m2 Height 2024-08-04 15:17:00.000 67 [in_us] Pulse 2024-09-13 10:50:00.000 80 /min Pulse 2024-09-11 10:10:00.000 97 /min Pulse 2024-09-10 12:13:00.000 76 /min Pulse 2024-09-09 09:59:00.000 86 /min Pulse 2024-09-06 10:34:00.000 80 /min Pulse 2024-09-04 10:35:00.000 86 /min Pulse 2024-09-02 12:39:00.000 67 /min Pulse 2024-09-02 12:25:00.000 67 /min Pulse 2024-08-30 12:01:00.000 71 /min Pulse 2024-08-29 11:22:00.000 72 /min Pulse 2024-08-26 10:03:00.000 92 /min Pulse 2024-08-23 12:12:00.000 96 /min Pulse 2024-08-22 11:10:00.000 73 /min Pulse 2024-08-21 10:52:00.000 84 /min Pulse 2024-08-19 10:24:00.000 88 /min Pulse 2024-08-16 10:17:00.000 72 /min Pulse 2024-08-15 11:05:00.000 79 /min Pulse 2024-08-12 10:40:00.000 87 /min Pulse 2024-08-08 16:59:00.000 62 /min Pulse 2024-08-08 11:02:00.000 88 /min Pulse 2024-08-06 12:34:00.000 63 /min Pulse 2024-08-04 15:17:00.000 78 /min O2 Saturation (%) 2024-09-11 10:10:00.000 96 % O2 Saturation (%) 2024-09-10 12:13:00.000 95 % O2 Saturation (%) 2024-09-09 09:59:00.000 97 % O2 Saturation (%) 2024-09-06 10:34:00.000 96 % O2 Saturation (%) 2024-09-04 10:35:00.000 98 % O2 Saturation (%) 2024-09-02 12:39:00.000 96 % O2 Saturation (%) 2024-09-02 12:25:00.000 96 % O2 Saturation (%) 2024-08-30 12:01:00.000 97 % O2 Saturation (%) 2024-08-29 11:22:00.000 99 % O2 Saturation (%) 2024-08-26 10:03:00.000 98 % O2 Saturation (%) 2024-08-23 12:12:00.000 97 % O2 Saturation (%) 2024-08-22 11:10:00.000 98 % O2 Saturation (%) 2024-08-21 10:52:00.000 99 % O2 Saturation (%) 2024-08-19 10:24:00.000 99 % O2 Saturation (%) 2024-08-16 10:17:00.000 99 % O2 Saturation (%) 2024-08-15 11:05:00.000 95 % O2 Saturation (%) 2024-08-12 10:40:00.000 98 % O2 Saturation (%) 2024-08-08 16:59:00.000 98 % O2 Saturation (%) 2024-08-08 11:02:00.000 99 % O2 Saturation (%) 2024-08-06 12:34:00.000 98 % O2 Saturation (%) 2024-08-04 15:17:00.000 98 % Respirations 2024-09-13 10:50:00.000 20 /min Respirations 2024-09-11 10:10:00.000 18 /min Respirations 2024-09-10 12:13:00.000 18 /min Respirations 2024-09-04 10:35:00.000 18 /min Respirations 2024-09-02 12:39:00.000 18 /min Respirations 2024-09-02 12:25:00.000 18 /min Respirations 2024-08-30 12:01:00.000 18 /min Respirations 2024-08-29 11:22:00.000 16 /min Respirations 2024-08-23 12:12:00.000 18 /min Respirations 2024-08-22 11:10:00.000 16 /min Respirations 2024-08-19 10:24:00.000 18 /min Respirations 2024-08-15 11:05:00.000 16 /min Respirations 2024-08-12 10:40:00.000 18 /min Respirations 2024-08-08 16:59:00.000 16 /min Respirations 2024-08-08 11:02:00.000 18 /min Respirations 2024-08-06 12:34:00.000 16 /min Respirations 2024-08-04 15:17:00.000 18 /min Weight (lbs) 2024-08-04 15:17:00.000 260 [lb_av] Systolic Blood Pressure 2024-09-13 10:50:00.000 138 mm [Hg] Systolic Blood Pressure 2024-09-11 10:10:00.000 150 mm [Hg] Systolic Blood Pressure 2024-09-10 12:13:00.000 155 mm [Hg] Systolic Blood Pressure 2024-09-09 09:59:00.000 152 mm [Hg] Systolic Blood Pressure 2024-09-06 10:34:00.000 152 mm [Hg] Systolic Blood Pressure 2024-09-04 10:35:00.000 150 mm [Hg] Systolic Blood Pressure 2024-09-02 12:39:00.000 138 mm [Hg] Systolic Blood Pressure 2024-09-02 12:25:00.000 138 mm [Hg] Systolic Blood Pressure 2024-08-30 12:01:00.000 148 mm [Hg] Systolic Blood Pressure 2024-08-29 11:22:00.000 168 mm [Hg] Systolic Blood Pressure 2024-08-26 10:03:00.000 160 mm [Hg] Systolic Blood Pressure 2024-08-23 12:12:00.000 132 mm [Hg] Systolic Blood Pressure 2024-08-22 11:10:00.000 114 mm [Hg] Systolic Blood Pressure 2024-08-21 10:52:00.000 146 mm [Hg] Systolic Blood Pressure 2024-08-19 10:24:00.000 152 mm [Hg] Systolic Blood Pressure 2024-08-16 10:19:00.000 136 mm [Hg] Systolic Blood Pressure 2024-08-15 11:05:00.000 112 mm [Hg] Systolic Blood Pressure 2024-08-12 10:40:00.000 140 mm [Hg] Systolic Blood Pressure 2024-08-08 16:59:00.000 114 mm [Hg] Systolic Blood Pressure 2024-08-08 11:02:00.000 142 mm [Hg] Systolic Blood Pressure 2024-08-06 12:38:00.000 142 mm [Hg] Systolic Blood Pressure 2024-08-04 15:17:00.000 144 mm [Hg] Diastolic Blood Pressure 2024-09-13 10:50:00.000 88 mm [Hg] Diastolic Blood Pressure 2024-09-11 10:10:00.000 90 mm [Hg] Diastolic Blood Pressure 2024-09-10 12:13:00.000 100 m m[Hg] Diastolic Blood Pressure 2024-09-09 09:59:00.000 80 mm [Hg] Diastolic Blood Pressure 2024-09-06 10:34:00.000 88 mm [Hg] Diastolic Blood Pressure 2024-09-04 10:35:00.000 90 mm [Hg] Diastolic Blood Pressure 2024-09-02 12:39:00.000 90 mm [Hg] Diastolic Blood Pressure 2024-09-02 12:25:00.000 90 mm [Hg] Diastolic Blood Pressure 2024-08-30 12:01:00.000 89 mm [Hg] Diastolic Blood Pressure 2024-08-29 11:22:00.000 72 mm [Hg] Diastolic Blood Pressure 2024-08-26 10:03:00.000 90 mm [Hg] Diastolic Blood Pressure 2024-08-23 12:12:00.000 74 mm [Hg] Diastolic Blood Pressure 2024-08-22 11:10:00.000 70 mm [Hg] Diastolic Blood Pressure 2024-08-21 10:52:00.000 82 mm [Hg] Diastolic Blood Pressure 2024-08-19 10:24:00.000 88 mm [Hg] Diastolic Blood Pressure 2024-08-16 10:19:00.000 80 mm [Hg] Diastolic Blood Pressure 2024-08-15 11:05:00.000 74 mm [Hg] Diastolic Blood Pressure 2024-08-12 10:40:00.000 82 mm [Hg] Diastolic Blood Pressure 2024-08-08 16:59:00.000 72 mm [Hg] Diastolic Blood Pressure 2024-08-08 11:02:00.000 82 mm [Hg] Diastolic Blood Pressure 2024-08-06 12:38:00.000 78 mm [Hg] Diastolic Blood Pressure 2024-08-04 15:17:00.000 82 mm [Hg] Plan of Treatment Planned Activity Planned Date Details Comments Future Scheduled Test SKILLED NU RSE TO EVALUATE PATIENT, IDENTIFY PRIMARY AND CO-MORBID CONDITIONS CODED PER CODING GUIDELINES, AND DEVELOP PATIENT SPECIFIC PLAN OF CARE THAT INCLUDES PATIENT GOAL FOR HOME HEALTH. [code = SKILLED NURSE TO EVALUATE PATIENT, IDENTIFY PRIMARY AND CO-MORBID CONDITIONS CODED PER CODING GUIDELINES, AND DEVELOP PATIENT SPECIFIC PLAN OF CARE THAT INCLUDES PATIENT GOAL FOR HOME HEALTH.] Future Scheduled Test SKILLED NU RSE TO REVIEW PATIENT MEDICATIONS. INSTRUCT PATIENT/CAREGIVER ON MONITORING OF EFFECTIVENESS, ADVERSE DRUG REACTIONS, SIDE EFFECTS OF ALL MEDICATIONS (PRESCRIPTION/-OTC), AND HOW AND WHEN TO REPORT PROBLEMS. [code = SKILLED NURSE TO REVIEW PATIENT MEDICATIONS. INSTRUCT PATIENT/CAREGIVER ON MONITORING OF EFFECTIVENESS, ADVERSE DRUG REACTIONS, SIDE EFFECTS OF ALL MEDICATIONS (PRESCRIPTION/-OTC), AND HOW AND WHEN TO REPORT PROBLEMS. ] Future Scheduled Test SKILLED NU RSE TO ASSESS ANXIETY AND PROVIDE ASSISTANCE TO PATIENT FOR UNDERSTANDING AND MANAGEMENT OF FEELINGS. [code = SKILLED NURSE TO ASSESS ANXIETY AND PROVIDE ASSISTANCE TO PATIENT FOR UNDERSTANDING AND MANAGEMENT OF FEELINGS.] Future Scheduled Test SKILLED NU RSE FOR O/A OF RESPIRATORY SYSTEM TO IDENTIFY CHANGES ASSOCIATED WITH EXACERBATION AND TO PROVIDE SKILLED TEACHING ON MANAGEMENT OF STEVE RESPIRATORY DISEASE PROCESS. [code = SKILLED NURSE FOR O/A OF RESPIRATORY SYSTEM TO IDENTIFY CHANGES ASSOCIATED WITH EXACERBATION AND TO PROVIDE SKILLED TEACHING ON MANAGEMENT OF STEVE RESPIRATORY DISEASE PROCESS.] Future Scheduled Test NEED FOR S KILLED TEACHING AND INTERVENTION RELATED TO VENOUS WOUNDS BLE SKILLED NURSE OR TRAINED PATIENT/CAREGIVER TO PERFORM WOUND CARE USING ASEPPTIC TECHNIQUE, CLEANSE/IRRIGATE WITH STERILE WATER OR SKINTEGRITY WOUND CLEANSER (DOES NOT TOLERATE SALINE), PAT DRY WITH GAUZE, APPLY BETAMETHASONE TO PERIWOUND, APPLY MOISTENED AQUACEL TO WOUND BED, COVER WITH NONADHERENT PAD, SECURE WITH KERLIX AND TAPE. WOUND CARE TO BE PERFORMED DAILY AND PRN IF SOILED OR DISLODGED. 1-2 PRN SKILLED NURSE VISITS FOR WOUND CARE DUE TO COMPLICATIONS. SKILLED NURSE TO OBTAIN WOUND CULTURE PRN S/S OF INFECTION. WOUND CARE WILL BE PERFORMED BY TRAINED CAREGIVER ON DAYS WHEN SKILLED NURSE IS NOT SCHEDULED FOR A VISIT. DISCONTINUE WOUND CARE/SUPPLIES ONCE WOUND IS HEALED. [code = NEED FOR SKILLED TEACHING AND INTERVENTION RELATED TO VENOUS WOUNDS BLE SKILLED NURSE OR TRAINED PATIENT/CAREGIVER TO PERFORM WOUND CARE USING ASEPPTIC TECHNIQUE, CLEANSE/IRRIGATE WITH STERILE WATER OR SKINTEGRITY WOUND CLEANSER (DOES NOT TOLERATE SALINE), PAT DRY WITH GAUZE, APPLY BETAMETHASONE TO PERIWOUND, APPLY MOISTENED AQUACEL TO WOUND BED, COVER WITH NONADHERENT PAD, SECURE WITH KERLIX AND TAPE. WOUND CARE TO BE PERFORMED DAILY AND PRN IF SOILED OR DISLODGED. 1-2 PRN SKILLED NURSE VISITS FOR WOUND CARE DUE TO COMPLICATIONS. SKILLED NURSE TO OBTAIN WOUND CULTURE PRN S/S OF INFECTION. WOUND CARE WILL BE PERFORMED BY TRAINED CAREGIVER ON DAYS WHEN SKILLED NURSE IS NOT SCHEDULED FOR A VISIT. DISCONTINUE WOUND CARE/SUPPLIES ONCE WOUND IS HEALED.] Future Scheduled Test SKILLED NU RSE TO PERFORM AND RECORD BLOOD SUGAR READING DAILY , AND PRN FOR SIGNS AND SYMPTOMS OF HYPO/HYPERGLYCEMIA. [code = SKILLED NURSE TO PERFORM AND RECORD BLOOD SUGAR READING DAILY , AND PRN FOR SIGNS AND SYMPTOMS OF HYPO/HYPERGLYCEMIA.] Future Scheduled Test SKILLED NU RSE FOR O/A AND SKILLED TEACHING IN MANAGEMENT OF CIRCULATORY/VASCULAR DISEASE. [code = SKILLED NURSE FOR O/A AND SKILLED TEACHING IN MANAGEMENT OF CIRCULATORY/VASCULAR DISEASE.] Future Scheduled Test PHYSICAL T HERAPIST TO EVALUATE PATIENT FOR GAIT [code = PHYSICAL THERAPIST TO EVALUATE PATIENT FOR GAIT] Future Scheduled Test SKILLED NU RSE TO PROVIDE TEACHING ON SIGNS AND SYMPTOMS AND MANAGEMENT OF HYPERTENSION. [code = SKILLED NURSE TO PROVIDE TEACHING ON SIGNS AND SYMPTOMS AND MANAGEMENT OF HYPERTENSION.] Future Scheduled Test SKILLED NU RSE FOR O/A AND TEACHING OF DIABETIC MANAGEMENT INCLUDING BLOOD SUGAR MONITORING/USE OF GLUCOMETER, DIABETIC DIET, LOWER EXTREMITY SKIN INSPECTION, PROPER SKIN/FOOT CARE, AND SIGNS AND SYMPTOMS HYPO/HYPERGLYCEMIA TO REPORT. [code = SKILLED NURSE FOR O/A AND TEACHING OF DIABETIC MANAGEMENT INCLUDING BLOOD SUGAR MONITORING/USE OF GLUCOMETER, DIABETIC DIET, LOWER EXTREMITY SKIN INSPECTION, PROPER SKIN/FOOT CARE, AND SIGNS AND SYMPTOMS HYPO/HYPERGLYCEMIA TO REPORT.] Future Scheduled Test VIRTUAL SIT FREQUENCY: 3-4 PRN VIRTUAL VISITS FOR HIGH RISK ASSESSMENTS AND/OR CHANGE IN STATUS MAY BE PERFORMED UTILIZING TELECOMMUNICATIONS SYSTEM TO OPTIMIZE SKILLED SERVICES FURNISHED ON THE PLAN OF CARE. SKILLED NURSE TO ESTABLISH SUPPORT MEASURES TO MINIMIZE RISK OF REHOSPITALIZATION, AND INSTRUCT PATIENT/CAREGIVER ON METHODS TO REDUCE AVOIDABLE HOSPITALIZATION. [code = VIRTUAL VISIT FREQUENCY: 3-4 PRN VIRTUAL VISITS FOR HIGH RISK ASSESSMENTS AND/OR CHANGE IN STATUS MAY BE PERFORMED UTILIZING TELECOMMUNICATIONS SYSTEM TO OPTIMIZE SKILLED SERVICES FURNISHED ON THE PLAN OF CARE. SKILLED NURSE TO ESTABLISH SUPPORT MEASURES TO MINIMIZE RISK OF REHOSPITALIZATION, AND INSTRUCT PATIENT/CAREGIVER ON METHODS TO REDUCE AVOIDABLE HOSPITALIZATION.] Future Scheduled Test PATIENT NINO S A RISK OF HOSPITALIZATION AND ED USE. SKILLED NURSE TO ESTABLISH SUPPORT MEASURES TO MINIMIZE RISK OF HOSPITALIZATION AND ED USE, AND INSTRUCT PATIENT/CAREGIVER ON METHODS TO REDUCE AVOIDABLE HOSPITALIZATION AND ED USE. [code = PATIENT HAS A RISK OF HOSPITALIZATION AND ED USE. SKILLED NURSE TO ESTABLISH SUPPORT MEASURES TO MINIMIZE RISK OF HOSPITALIZATION AND ED USE, AND INSTRUCT PATIENT/CAREGIVER ON METHODS TO REDUCE AVOIDABLE HOSPITALIZATION AND ED USE.] Future Scheduled Test SKILLED NU RSE TO PROVIDE INSTRUCTION TO PATIENT/CAREGIVER RELATED TO DISCHARGE PLANNING. [code = SKILLED NURSE TO PROVIDE INSTRUCTION TO PATIENT/CAREGIVER RELATED TO DISCHARGE PLANNING.] Future Scheduled Test SKILLED NU RSE TO PERFORM HOME SAFETY AND FALL ASSESSMENT AND PROVIDE INSTRUCTION TO IMPLEMENT HOME SAFETY AND FALL PREVENTION STRATEGIES. [code = SKILLED NURSE TO PERFORM HOME SAFETY AND FALL ASSESSMENT AND PROVIDE INSTRUCTION TO IMPLEMENT HOME SAFETY AND FALL PREVENTION STRATEGIES.] Future Scheduled Test SKILLED NU RSE FOR OBSERVATION AND ASSESSMENT OF PATIENTS PAIN LEVEL AND EFFECTIVENESS OF PAIN MANAGEMENT REGIMEN. SKILLED NURSE TO INSTRUCT PATIENT/CAREGIVER REGARDING PHARMACOLOGIC AND NON-PHARMACOLOGIC PAIN CONTROL MEASURES. SKILLED NURSE TO REPORT TO PHYSICIAN IF PAIN IS UNCONTROLLED WITH CURRENT PAIN MANAGEMENT REGIMEN. [code = SKILLED NURSE FOR OBSERVATION AND ASSESSMENT OF PATIENTS PAIN LEVEL AND EFFECTIVENESS OF PAIN MANAGEMENT REGIMEN. SKILLED NURSE TO INSTRUCT PATIENT/CAREGIVER REGARDING PHARMACOLOGIC AND NON-PHARMACOLOGIC PAIN CONTROL MEASURES. SKILLED NURSE TO REPORT TO PHYSICIAN IF PAIN IS UNCONTROLLED WITH CURRENT PAIN MANAGEMENT REGIMEN.] Future Scheduled Test SKILLED NU RSE TO ASSESS PATIENT'S SKIN INTEGRITY AND INSTRUCT PATIENT/CAREGIVER ON MEASURES TO PREVENT PRESSURE ULCERS. [code = SKILLED NURSE TO ASSESS PATIENT'S SKIN INTEGRITY AND INSTRUCT PATIENT/CAREGIVER ON MEASURES TO PREVENT PRESSURE ULCERS.] Future Scheduled Test SKILLED NU RSE TO INSTRUCT PATIENT/CAREGIVER ON S/S OF NEUROPATHY AND METHODS TO MANAGE. [code = SKILLED NURSE TO INSTRUCT PATIENT/CAREGIVER ON S/S OF NEUROPATHY AND METHODS TO MANAGE.] Goal Patient Goal - WOUNDS TO HEA L Goal Provider Goal - A PLAN OF CARE WILL BE ESTABLISHED THAT MEETS PATIENT'S SENIOR CARE NEEDS AND INCLUDES PATIENT GOAL FOR HOME HEALTH. Goal Provider Goal - PATIENT/CAREGIVER WILL VERBALIZE UNDERSTANDING OF EDUCATION PROVIDED ON MEDICATIONS BY THE END OF THE CERTIFICATION PERIOD. Goal Provider Goal - SYMPTOMS OF ANXIETY ARE IDENTIFIED AND INTERVENTIONS INITIATED TO ENABLE PATIENT TO UNDERSTAND AND MANAGE FEELINGS THROUGHOUT EPISODE. Goal Provider Goal - PATIENT/CAREGIVER WILL VERBALIZE/DEMONSTRATE MANAGEMENT OF RESPIRATORY DISEASE PROCESS. CHANGES IN RESPIRATORY STATUS WILL BE IDENTIFIED AND REPORTED TO PHYSICIAN FOR PROMPT INTERVENTION THROUGHOUT THE CERTIFICATION PERIOD. Goal Provider Goal - WOUND CARE WILL BE COMPLETED AND PATIENT WILL HAVE IMPROVED WOUND STATUS EVIDENCED BY NO SIGNS AND SYMPTOMS OF INFECTION, DECREASED WOUND SIZE, AND/OR NO COMPLICATIONS BY THE END OF THE CERTIFICATION PERIOD. Goal Provider Goal - BLOOD SUGAR READING WILL BE OBTAINED ORDERED THROUGHOUT CERTIFICATION PERIOD. Goal Provider Goal - PATIENT/CAREGIVER WILL VERBALIZE/DEMONSTRATE THE ABILITY TO MANAGE CIRCULATORY DISEASE PROCESS AND EXACERBATIONS WILL BE IDENTIFIED FOR EARLY INTERVENTION THROUGHOUT THE CERTIFICATION PERIOD. Goal Provider Goal - A PHYSICAL THERAPY EVALUATION TO BE COMPLETED WITH RECOMMENDATIONS AND/OR WRITTEN PLAN OF TREATMENT ESTABLISHED FOR PHYSICIANS SIGNATURE. Goal Provider Goal - PATIENT/CAREGIVER WILL VERBALIZE SIGNS AND SYMPTOMS OF HYPERTENSION AND WILL BE ABLE TO DEMONSTRATE ABILITY TO MANAGE EXACERBATION BY END OF THE EPISODE. Goal Provider Goal - PATIENT/CAREGIVER WILL VERBALIZE/DEMONSTRATE KNOWLEDGE OF DIABETIC MANAGEMENT. CHANGES IN DIABETIC STATUS WILL BE IDENTIFIED AND REPORTED TO PHYSICIAN FOR PROMPT INTERVENTION THROUGHOUT THE CERTIFICATION PERIOD. Goal Provider Goal - PATIENT/CAREGIVER WILL UTILIZE VIRTUAL VISITS TO ACHIEVE GOALS OUTLINED ON THE PLAN OF CARE. PATIENT WILL HAVE SUPPORT MEASURES ESTABLISHED TO PREVENT HOSPITALIZATION AND PATIENT/CAREGIVER WILL VERBALIZE/DEMONSTRATE METHODS TO REDUCE AVOIDABLE HOSPITALIZATION THROUGHOUT THE CERTIFICATION PERIOD. Goal Provider Goal - PATIENT WILL HAVE SUPPORT MEASURES ESTABLISHED TO PREVENT HOSPITALIZATION AND ED USE AND PATIENT/CAREGIVER WILL VERBALIZE/DEMONSTRATE METHODS TO REDUCE AVOIDABLE HOSPITALIZATION AND ED USE BY END OF EPISODE. Goal Provider Goal - PATIENT/CAREGIVER WILL VERBALIZE UNDERSTANDING OF DISCHARGE PLANNING INSTRUCTIONS BY DATE OF DISCHARGE. Goal Provider Goal - PATIENT/CAREGIVER WILL VERBALIZE/DEMONSTRATE EFFECTIVE HOME SAFETY AND FALL PREVENTION STRATEGIES THROUGHOUT CERTIFICATION PERIOD. Goal Provider Goal - PATIENT/CAREGIVER WILL DEMONSTRATE UNDERSTANDING OF PHARMACOLOGIC AND NONPHARMACOLOGIC PAIN CONTROL MEASURES AND PATIENT WILL HAVE IMPROVEMENT IN PAIN INTERFERING WITH ACTIVITY EVIDENCED BY PAIN CONTROLLED AT LEVEL OF 7 OR LESS BY END OF CERTIFICATION PERIOD. Goal Provider Goal - PATIENT/CAREGIVER WILL VERBALIZE UNDERSTANDING OF PRESSURE ULCER PREVENTION BY END OF THE EPISODE. Goal Provider Goal - PATIENT/CAREGIVER WILL VERBALIZE S/S OF NEUROPATHY AND METHODS TO MANAGE BY END OF CERTIFICATION PERIOD. Progress Notes Progress Notes <paragraph>[Visit Date: 2023 by GRECIA PRADHAN RN]:</paragraph><paragraph>SNV 09/13/24 NORMAL VITALS: WITHIN ESTABLISHED PARAMETERS FALLS: NO FALLS OBSERVATION AND ASSESSMENT PROVIDED: CLIENT WAS SEEN IN THE EMERGENCY ROOM YESTERDAY FOR INCREASED PAIN TO BILATERAL WOUNDS. STATES THEY TOLD HER SHE HAD CELLULITIS. CLIENT WAS STARTED ON PO ABT TO TREAT. DAUGHTER WILL STOCK PATCHER TODAY, CLIENT REFUSED TO HAVE SN PROVIDE WOUND CARE TODAT STATING DAUGHTER WOUND COMPLETE LATER SGE IS TOO UNCOMFORTABLE. VSS NO ACUTE SIGNS OF DECOMPENSATION OR INFECTION NOTED. EDUCATION: SN INSTRUCTED CLIENT ON THE IMPORTANCE OF COMPLIANCE WITH NOT ONLY DRESSING CHANGES BUT ADHERING TO OTHER INFECTION CONTROL PROTOCOLS. REVIEWED THE SIGNS OF INFECTION, ENCOURAGING PROMPT REPORT TO MD AND SN IF FEVER, INCREASED PAIN, REDNESS, OR SWELLING MORE ABOVE BASELINE. ENCOURAGED TO NOT MISS APPT WITH WOUND CLINIC. INTERVENTIONS NEEDED AT NEXT VISIT: WOUNDCARE AND EDUCATION COMMUNICATION WITH MD: PCP TO REPORT ER VISIT 7 NEXT MD APPOINTMENT: WOUND CLINIC PT AND CAREGIVER INSTRUCTED TO CALL ANALISA WATSON WITH ANY QUESTIONS OR CONCERNS AND/OR CHANGES IN CONDITION, STATE UNDERSTANDING</paragraph> <paragraph>[Visit Date: 2023 by MARC TUCKER RN, ADMISSION NURSE]:</paragraph><paragraph>SNV 09/10/24 ABNORMAL VITALS: BP 150/90 FALLS: NONE REPORTED ABNORMAL PHYSICAL ASSESSMENT FINDINGS: PT REPORTED FEELING DIZZY AND PASSED OUT, EMS CALLED AND PT TRANSFER TO [facility] MEDICATION CHANGES: NONE OBSERVATION AND ASSESSMENT PROVIDED: PTS WOUND DRESSING CHANGED COMPLETED BEFORE PT PASSED OUT. AFTER COMPLETION OF WOUND CARE PT CONTINUE TO REPORT FEELING DIZZY, THIS NURSE ASKED PT WHAT OTHER SYMPTOMS SHE HAD PT STATED I DONT KNOW I JUST DONT FEEL RIGHT AND PASSED OUT, THIS NURSE CONTINUED CALLING PTS NAME AND RUBBING HER STERNUM AND PT WOUND COME IN AND OUT OF CONCIOUSNESS STATING I AM ALRIGHT, SN CHECKED PT PULSE AND O2 SAT WHICH READ P 42, O2 SAT 77%, PT BREATHING WAS LABORED, SHE WAS YAWNING, GURGLING AT THIS TIME GEOSPATIAL IMAGE ANALYST WAS ON THE PHONE WITH THIS SN ASSISTING SN WHILE EMERGENCY CREW ARRIVED, AT SOME POINT THE AND GEOSPATIAL IMAGE ANALYST ASKED THIS SN TO OPEN THE DOOR FOR THE POLICE, THEN FIRE FIGHTERS ARRIVED AND THE EMS, THEY TOOK OVER PT. BEFORE LEAVING THE APARTMENT PT WAS ALERT AND ORIENTATED, WAS ABLE TO STAND UP AND SIT IN THE EMT TRANSFER CHAIR. PT WAS TAKEN BY AMBULANCE TO [facility]. DURING THE VISIT SN ASKED MACHINE SPREADER TO CHECK BLOOD SUGAR PT WAS A NON-INSULIN DIABETIC AND HAD NO GLUCOMETER IN THE HOME, UNSURE IF BLOOD SUGAR WAS CHECKED IN THE AMBULANCE. AFTER PT WAS TAKEN TO THE HOSPITAL PTS DAUGHTER CALLED THIS SN ASKING WHAT HAD HAPPENED AND THIS NURSE EXPLAINED THAT PT HAD REPORTED FEELING DIZZY AND PASSED OUT AND 911 WAS CALLED AND TOOK PT TO [facility]. DAUGHTER WAS MADE AWARE THAT PT WAS ALERT AND ORIENTATED WHEN EMT TRANSFER HER TO THE HOSPITAL, PT DAUGHTER STATED I KNOW I AM WITH MY MOTHER. PT S SON WAS IN THE HOME WHILE THE EMERGENCY HOWEVER WAS NOT HAPPY WHEN HE WAS WOKEN UP BY A TELEPHONE CALL FROM A SIBLING AND STATED NO ONE CAN SLEEP IN THIS HOUSE.</paragraph> Encounters Start Date/Time End Date/Time Encounter Type Admission Type Attending Clinicians Care Facility Care Department Encounter ID Discharge Date Discharge Status Discharge Condition Discharge Reason Percent Goals Met 2024-08-04 00:00:00 2024-10-02 00:00:00 Outpatient ELISHA ARRIETA [facility] [id number] 59.09
== END 2024-09-11 17:54 | disposition home or self-care (01) ==
PROVIDERS: Emergency Provider Emergency Medicine; PCP Internal Medicine
DX: R55 Syncope and collapse (principal); E87.6 Hypokalemia; R60.0 Localized edema; M79.605 Pain in left leg; M79.604 Pain in right leg; E11.9 Type 2 diabetes mellitus without complications; I10 Essential (primary) hypertension; E78.5 Hyperlipidemia, unspecified; E66.9 Obesity, unspecified; Z68.39 Body mass index [BMI] 39.0-39.9, adult; Z79.82 Long term (current) use of aspirin; Z79.899 Other long term (current) drug therapy
CPT/HCPCS: 36415; 71275; 80048; 80076; 83690; 83735; 83880; 84484; 85025; 85610; 93005; 93970; 96374; 99284; 99285; J2270; Q9967

== ENCOUNTER → 2024-09-11 11:27 | Outpatient (BNV) | payer MEDICARE, SELFPAY | PROVIDERS: Emergency Provider Emergency Medicine; PCP Internal Medicine; Visit Provider Internal Medicine Cardiovascular Disease | DX: R55 Syncope and collapse (principal); I45.2 Bifascicular block; R94.31 Abnormal electrocardiogram [ECG] [EKG] | CPT/HCPCS: 93010 ==

== ENCOUNTER 2024-09-12 13:44 | Emergency (ER) | payer SELFPAY ==
--- NOTE | 2024-09-12 14:00 | ED.SKABFB ---
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 Patient was evaluated in our ED yesterday s/p syncopal episode, workup was unremarkable, discharged home on p.o. morphine for pain. Patient states she took a dose of morphine prior to discharge however did not take any of the prescription at home. Reports slight drainage lower extremities. Denies fever, chills, injury/fall, CP/SOB Related Data Home Medications ?Medication ?Instructions ?Recorded ?Confirmed albuterol sulfate 90 mcg/actuation 2 puff inhalation Q6H PRN Wheezing 02/10/21 08/28/24 aerosol inhaler cholecalciferol (vitamin D3) 25 25 mcg PO DAILY 01/11/24 08/28/24 mcg (1,000 unit) tablet clonidine HCl 0.1 mg tablet 0.2 mg PO TID 07/12/24 08/28/24 betamethasone dipropionate 0.05 % 1 appl topical BID 08/14/24 08/28/24 topical cream naloxone 4 mg/actuation nasal spray intranasal 08/14/24 08/28/24 Previous Rx's ?Medication ?Instructions ?Recorded aspirin 81 mg tablet,delayed 81 mg PO DAILY 90 days #90 tabs 02/10/21 release (Adult Aspirin Regimen) compr.stocking,knee,long,large #2 ea 03/11/21 potassium chloride 20 mEq 20 meq PO DAILY #14 tabs 07/09/24 tablet,extended release losartan 50 mg tablet 50 mg PO BID #180 tabs 07/15/24 carvedilol 6.25 mg tablet 6.25 mg PO BID #180 tabs 08/28/24 gentamicin 0.1 % topical ointment 1 appl topical DAILY #15 grams 08/28/24 gabapentin 100 mg capsule 100 mg PO BEDTIME #30 caps 08/29/24 methocarbamol 500 mg tablet 500 mg PO TID PRN for pain #20 tabs 09/02/24 tramadol 50 mg tablet 50 mg PO Q8H PRN pain (scale score 09/04/24 7-10) #14 tabs ibuprofen 800 mg tablet 800 mg PO Q8H PRN pain 30 days #90 09/10/24 tabs morphine 15 mg immediate release 15 mg PO Q8H PRN pain #20 tabs 09/11/24 tablet cephalexin 500 mg capsule 500 mg PO QID 7 days #28 caps 09/12/24 Allergies Allergy/AdvReac Type Severity Reaction Status Date / Time amlodipine Allergy Intermediate drowsiness, Verified 09/12/24 14:13 swelling of feet and ankles lisinopril Allergy Intermediate cough Verified 09/12/24 14:13 hydralazine Allergy Swelling Verified 09/12/24 14:13 metformin AdvReac Diarrhea Verified 09/12/24 14:13 Lisinopril-Hydrochlorothiazide AdvReac Intermediate Leg Uncoded 09/11/24 11:24 swelling Metoprolol Tartrate AdvReac Intermediate Leg Uncoded 09/11/24 11:24 swelling Review of Systems Review of Systems: Yes all other systems are reviewed and are negative Constitutional: Constitutional: Reports as per [facility] Past Medical History Attestation statement: The following information was validated with the patient. Source: old records reviewed Medical History Hypertension Wound of lower extremity Venous stasis ulcer Chronic ulcer of left ankle Diabetes Hypertension Abnormal Pap smear of cervix Diabetes mellitus Hypertension Renal calculi Diastasis recti Dyslipidemia associated with type 2 diabetes mellitus Abdominal mass Microalbuminuria Renal calculi Morbid obesity Surgical History Hx of prior ablation treatment Family History Family History Father Seizures Mother Seizures Congenital heart disease in adult Hypotension Maternal Grandfather Leukemia Social History Social History Household Members: Family Housing: House Do you presently have visiting nurse or other home services: No Alcohol intake: current Alcohol intake frequency: holidays/special occasions only Alcohol type: wine Patient Tobacco Use Status: Former Tobacco user Tobacco use type: Cigarette e-Cigarette/Vaping Use: Never Used Second Hand Smoke Exposure: No Substance Use Type: Other Advance Directives: No Advance Directives Information Provided: Yes Do you have a plan to hurt others: No Plan service: No Current occupational status: employed Current occupational exposures/hazards: No Cognitive needs: No Hearing needs: No Vision needs: No Physical Exam Vital Signs: Vital Signs: Last Vital Signs Temp 98.8 F 09/12/24 14:10 Pulse 105 H 09/12/24 14:10 Resp 20 09/12/24 14:10 BP 154/105 H 09/12/24 14:10 Pulse Ox 96 09/12/24 14:10 O2 Del Method Room Air 09/12/24 14:10 BMI result Body Mass Index 39.2 Const: General: cooperative, healthy appearing and no acute distress Orientation/consciousness: patient oriented x3 Limitations: no limitations HEENT: Head: Yes normal to inspection and Yes atraumatic Ears: hearing grossly normal bilaterally General nose exam: Normal external nose present Face and sinus: Yes normal facial exam Eyes: General: appearance normal, both eyes and all related structures EOM: EOMs intact bilaterally Neck: Neck: Yes normal visual inspection and Yes no meningeal signs Resp: Effort & Inspection: normal respiratory effort and no respiratory distress Auscultation: clear to auscultation bilaterally Cardio: Rate: regular rate Heart sounds: S1 normal heart sound present and S2 normal heart sound present GI: Inspection: Yes normal to inspection Palpation (GI): Soft to palpation, nontender, no guarding and not rigid : General: Yes no CVA tenderness Back/Spine/Pelvis: Back: no CVA tenderness Skin: Other: Please refer to images above. Bilateral lower extremity chronic wounds. Some malodor noted from RLE wound. Slight drainage on dressing, no active drainage. No fluctuance/induration or erythema. No warmth. Neurovascularly intact distally Rashes: no rashes Neuro: General: patient oriented x3, tone normal and no meningeal signs Cranial nerves: Yes CN's II-XII intact bilaterally Gait exam (Neuro): Normal gait present Extrem: General: Yes normal to inspection Course Course Course Narrative: This is a Rapid Medical Examination (RME) performed by Karis Wright PA-C in triage. Full HPI, ROS, assessment and treatment plan per primary provider in the Main ED. 69 yo female hx DM, HLD, HTN, obese, possible pyoderma gangrenosum not on blood thinners here for evaluation of increased pain to her bilateral lower extremity wounds since last night. seen here yesterday for same, discharged home w/ morphine. admits to taking one dose last night. did not take any more morphine today. when asked why she did not take any pain medication, she states that she received a phone call from [facility] to ask how she was going and when she reported she was still having pain, she was advised to come back to the ED. pain currently 04/17. +LEs wrapped. wounds not visualized. Plan: labs, will require further eval in back -no leukocytosis. Potassium low at 3.0 > p.o. repletion ordered. Labs otherwise reassuring. Leg wounds redressed. >> discussed with patient outpatient p.o. antibiotic trial vs admission for antibiotics and feels comfortable with outpatient antibiotics and wound follow-up. > Patient is safe for discharge home at this time with Wound care follow-up. No sepsis. Will discharge home with p.o. antibiotics. Already has p.o. morphine prescription at home from yesterday. Results discussed with patient including worrisome signs and symptoms and strict return precautions, and when to return to the emergency department. They verbalized understanding and feel safe for discharge at this time. 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 On exam hypertensive, tachycardic likely from pain, physical exam as noted above, please refer to images. Slight drainage on dressing & malodor noted to RLE wound. No evidence of abscess formation. Concern for early cellulitis vs chronic wounds and chronic pain. Low suspicion for acute osteomyelitis or deeper infection. Unlikely DVT with negative ultrasound yesterday Plan: Labs, pain control, wound care/dressing change Low suspicion for severe sepsis Please refer to course for remaining clinical decision making, interpretation of labs/imaging results, and discussions with consultants and/or family members. Differential Diagnosis Differential Diagnoses: The differential diagnosis associated with the presentation includes As above Admission/Observation Consideration of admission/observation: Escalation of care including admission/observation considered Lab Data [facility] Lab Attestation statement: I reviewed the patient's lab results. 09/12/24 14:32 09/12/24 14:32 Labs: Lab Results 09/12/24 Range/Units 14:32 WBC 8.8 (4.8-10.8) X10*3/uL RBC 4.27 (4.20-5.50) X10*6/uL Hgb 12.7 (12.0-16.0) g/dl Hct 36.9 L (37.0-47.0) % MCV 86.4 (80.0-98.0) fL MCH 29.7 (27.0-33.0) pg MCHC 34.4 (31.0-35.0) g/dl RDW 13.2 (11.0-16.0) % Plt Count 273 (160-400) X10*3/uL MPV 9.1 L (9.4-12.3) fL Immature Gran % (Auto) 0.2 (0.0-0.4) % Neut % (Auto) 63.2 (45-73) % Lymph % (Auto) 25.1 (20-40) % [place] % (Auto) 7.5 (2-11) % Eos % (Auto) 3.3 (0-4) % Baso % (Auto) 0.7 (0-2) % Lymph # (Auto) 2.2 (1.2-4.9) X10*3/uL [place] # (Auto) 0.7 (0.1-1.2) X10*3/uL Eos # (Auto) 0.3 (0.0-0.4) X10*3/uL Baso # (Auto) 0.1 (0.0-0.2) X10*3/uL Abs Immat Gran (auto) 0.02 (0.00-0.03) X10*3/uL Absolute Neuts (auto) 5.6 (2.0-8.3) x10*3/uL Absolute Nucleated RBC 0.000 (0.0-0.012) X10*3/uL Nucleated RBC % (auto) 0.0 (0.0-0.2) /100WBC Sodium 142 (135-145) mmol/L Potassium 3.0 L (3.3-5.1) mmol/L Chloride 101 (96-108) mmol/L Carbon Dioxide 31 H (22-29) mmol/L Anion Gap 13 (12-20) BUN 17 H (9-16) mg/dL Creatinine 1.07 (0.5-1.4) mg/dL Estim Creat Clear Calc 65.4 Estimated GFR 51 Random Glucose 155 H (60-115) mg/dL Calcium 9.6 (8.4-10.2) mg/dL Magnesium 1.6 (1.6-2.6) mg/dL Total Bilirubin 0.6 (0.0-1.0) mg/dL AST 23 (5-31) U/L ALT 8 (0-31) U/L Alkaline Phosphatase 63 (39-117) U/L Total Protein 7.6 (6.5-8.0) g/dL Albumin 3.8 (3.5-5.0) g/dL Radiology Impression Discussion of test interpretation with radiology: I have reviewed the radiologist's reading. External Record Review External record reviewed: Inpatient record, Office record, Outpatient record, Prior outpatient labs, Prior outpatient radiology, Primary care record and Outside ED record Tests considered The following testing was considered but not selected: As above Prescription Management I considered prescription management with: Pain Medication and Antibiotic Chronic Conditions Patient?s care impacted by: Diabetes and Other Social Determinants Patient?s care significantly limited by Social Determinants of Health including: Inadequate housing, Low income, Problems related to primary support group, Problems related to employment and Other Social Determinant of Health Discharge Plan Discharge Clinical Impression: Chronic wound, Cellulitis Patient Disposition: Home, Self-Care Instructions: Cellulitis (DC) Additional Instructions: Your blood work is reassuring YOU NEED TO FOLLOW-UP WITH WOUND CARE. CALL TOMORROW Keflex as an antibiotic please take as prescribed If wound is worsening, becomes increasingly red, there is drainage, malodor, you have fever or chills you need to return to the ED immediately Prescriptions: New cephalexin 500 mg capsule 500 mg PO QID 7 Days Qty: 28 0RF No Action gabapentin 100 mg capsule 100 mg PO BEDTIME Qty: 30 0RF methocarbamol 500 mg tablet 500 mg PO TID PRN (Reason: for pain) Qty: 20 0RF tramadol 50 mg tablet 50 mg PO Q8H PRN (Reason: pain (scale score 7-10)) Qty: 14 0RF ibuprofen 800 mg tablet 800 mg PO Q8H PRN (Reason: pain) 30 Days Qty: 90 1RF potassium chloride 20 mEq tablet extended release 20 meq PO DAILY Qty: 14 0RF cholecalciferol (vitamin D3) 25 mcg (1,000 unit) Tablet 25 mcg PO DAILY clonidine HCl 0.1 mg tablet 0.2 mg PO TID losartan 50 mg Tablet 50 mg PO BID Qty: 180 0RF Protocol: Hold for SBP< HOLD for SBP < : 90 morphine 15 mg tablet 15 mg PO Q8H PRN (Reason: pain) Qty: 20 0RF Rx Instructions: Partial Fill upon patient request. albuterol sulfate 90 mcg/actuation HFA aerosol inhaler 2 puff inhalation Q6H PRN (Reason: Wheezing) aspirin [Adult Aspirin Regimen] 81 mg tablet,delayed release (DR/EC) 81 mg PO DAILY 90 Days Qty: 90 2RF (DME) compr.stocking,knee,long,large Misc See Rx Instructions .ROUTE .MEDSUPPLY Qty: 2 0RF Rx Instructions: As directed betamethasone dipropionate 0.05 % cream 1 appl topical BID naloxone 4 mg/actuation spray,non-aerosol intranasal gentamicin 0.1 % ointment 1 appl topical DAILY Qty: 15 0RF carvedilol 6.25 mg tablet 6.25 mg PO BID Qty: 180 1RF Protocol: Hold for SBP/HR < HOLD for SBP < : 90 HOLD for HR < : 60 Referrals: [facility] [place] Wound Care Management [Provider Group] - 1 day Lillian Quiñones MD [Primary Care Provider] - Print Language: Faroese
[2024-09-12 14:10] VITALS: BP 154/105; PULSE 105; RESP 20; TEMP 37.1; O2SAT 96; BMI 39.2
[2024-09-12 14:36] LABS: MANUAL DIFF FLAG NO
[2024-09-12 14:40] LABS: Basophils Absolute Auto 0.1 X10*3/uL (0.0-0.2); Basophils Percent Auto 0.7 % (0-2); Eosinophils Absolute Auto 0.3 X10*3/uL (0.0-0.4); Eosinophils Percent Auto 3.3 % (0-4); Hematocrit 36.9 % (37.0-47.0); Hemoglobin 12.7 g/dl (12.0-16.0); Imm Gran Abs Auto 0.02 X10*3/uL (0.00-0.03); Imm Gran Pct Auto 0.2 % (0.0-0.4); Lymphocytes Absolute Auto 2.2 X10*3/uL (1.2-4.9); Lymphocytes Percent Auto 25.1 % (20-40); Mean Corpuscular HGB Conc 34.4 g/dl (31.0-35.0); Mean Corpuscular Hemoglobin 29.7 pg (27.0-33.0); Mean Corpuscular Volume 86.4 fL (80.0-98.0); Mean Platelet Volume 9.1 fL (9.4-12.3); Monocytes Absolute Auto 0.7 X10*3/uL (0.1-1.2); Monocytes Percent Auto 7.5 % (2-11); Neutrophils Absolute Auto 5.6 x10*3/uL (2.0-8.3); Neutrophils Percent Auto 63.2 % (45-73); Platelet Count 273 X10*3/uL (160-400); Red Blood Count 4.27 X10*6/uL (4.20-5.50); Red Cell Distribution Width 13.2 % (11.0-16.0); White Blood Count 8.8 X10*3/uL (4.8-10.8)
[2024-09-12 14:59] LABS: Alanine Aminotransferase 8 U/L (0-31); Albumin Level 3.8 g/dL (3.5-5.0); Alkaline Phosphatase 63 U/L (39-117); Anion Gap 13 (12-20); Aspartate Amino Transferase 23 U/L (5-31); Bilirubin Total 0.6 mg/dL (0.0-1.0); Blood Urea Nitrogen 17 mg/dL (9-16); Calcium 9.6 mg/dL (8.4-10.2); Carbon Dioxide 31 mmol/L (22-29); Chloride 101 mmol/L (96-108); Creatinine Clr Calc Pharmacy 65.4; Estimated Glomerular Filt Rate 51; Glucose Random 155 mg/dL (60-115); Magnesium 1.6 mg/dL (1.6-2.6); Sodium 142 mmol/L (135-145); Total Protein 7.6 g/dL (6.5-8.0)
[2024-09-12] MEDS: traMADoL HCL 50 MG TABLET PO (20:29)
[2024-09-12] MEDS: Ibuprofen 600 MG TABLET PO (20:29)
[2024-09-12] MEDS: Potassium Chloride Packet 20 MEQ PACKET 60 MEQ PO (20:29)
[2024-09-12] MEDS: Magnesium Oxide 400 MG TABLET 800 MG PO (20:29)
--- NOTE | 2024-09-12 20:43 | PC.NURSE ---
Wounds dressed w/ zeroform, nonadherent pad, kerlex wrap, & tape. Dressing dated & timed. Patient to call son for ride home.
[2024-09-12 21:03] VITALS: BP 168/106; PULSE 96; RESP 20; TEMP 36.9; O2SAT 97
--- NOTE | 2024-09-12 21:18 | PC.NURSE ---
this nurse attempted to DC patient home with self care instructions- pt complains to this nurse of dizziness-- vital signs WNL- Per PA, pt safe for discharge. Pt wishes to speak to PA. Vital signs obtained PA to bedside
--- NOTE | 2024-09-12 21:25 | PC.NURSE ---
pt requests food. food provided.
--- NOTE | 2024-09-12 21:41 | PC.NURSE ---
this nurse attempted discharage agamaryn- pt sts she ate a half of a sandwich. Requests wheelchair for discharge. WC brought to room - pt stated I have gas, I need to use the bathroom pt then stood and walked unassisted to BR.
--- OUTSIDE RECORDS SUMMARY | 2024-09-18 02:41 | XMS_ITS | Clinical Summary ---
Author Organization Unknown Care Team Providers Care Credit Operations Processor Name Role Phone NOELLE RUSSELL MD, REBECA Unavailable Unavailable YI ALEXIS, CLINICAL HEAD SUGAR REPROCESS OPERATOR, ELISHA Un available Unavailable FABRICE FARR, DUANE Unavailable Unavailable Payers Payer Name Policy Type Policy Number Effective Date Expira tion Date MEDICARE - [facility] [place] - [place]GM [id number] Problems Condition Name Condition Details Condition Category [...] OF NICOTINE DEPENDENCE Active 10-09 00:00: 00 TRANSMISSION SYSTEMS OPERATOR (CURRENT) USE OF ASPIRIN Active 10-09 00:00: [...] 2023-10 00:00: 00 08-01 23:59 :00 No [id number] Per instruc tions TWICE A DAY FOR 7 DAYS Per instructio ns TWICE A DAY FOR 7 DAYS (route: oral) Med Classific ation: Anti-Infe ctive Agents ibuprofen 800 mg tablet 2023-10 00:00: 00 08-01 23:59 :00 No [id number] Per instruc tions EVERY 8 HOURS NEEDED Per instructio ns EVERY 8 HOURS NEEDED (route: oral) Med Classific ation: Analgesic , Anti-infl ammatory or Antipyret ic levofloxaci n 750 mg tablet 2023-10 00:00: 00 08-01 23:59 :00 No [id number] Per instruc tions EVERY DAY FOR 7 DAYS Per instructio ns EVERY DAY FOR 7 DAYS (route: oral) Med Classific ation: Anti-Infe ctive Agents methocarbam ol 500 mg tablet 2023-10 00:00: 00 08-01 23:59 :00 No [id number] Per instruc tions THREE TIMES A DAY NEEDED Per instructio ns THREE TIMES A DAY NEEDED (route: oral) Med Classific ation: Locomotor System clonidine HCl 0.2 mg tablet 2023-10 00:00: 00 08-01 23:59 :00 No [id number] Per instruc tions 3 TIMES A DAY Per instructio ns 3 TIMES A DAY (route: oral) Med Classific ation: Cardiovas cular Therapy Agents potassium chloride ER 20 mEq tablet,exte nded release 2023-10 0 00:00: 00 08-01 23:59 :00 No [id number] Per instruc tions EVERY DAY Per instructio ns EVERY DAY (route: oral) Med Classific ation: Electroly te Balance-N utritiona l Products Santyl 250 unit/gram topical ointment 07-04 00:00: 00 07-17 00:00 :00 No [id number] Per instruc tions Per instructio ns (route: topical) Med Classific ation: Dermatolo gical clonidine HCl 0.1 mg tablet 06-21 00:00: 00 07-17 00:00 :00 No [id number] Per instruc tions TWICE A DAY FOR 90 DAYS Per instructio ns TWICE A DAY FOR 90 DAYS (route: oral) Med Classific ation: Cardiovas cular Therapy Agents albuterol sulfate HFA 90 mcg/actuati on aerosol inhaler 2023-10 00:00: 00 08-01 23:59 :00 No [id number] 2 puff EVERY 6 HOURS 2 puff EVERY 6 HOURS (route: inhalation ) Med Classific ation: Respirato ry Therapy Agents Aspirin Childrens 81 mg chewable tablet 2023-10 00:00: 00 08-01 23:59 :00 No [id number] 1 tablet DAILY 1 tablet DAILY (route: oral) Med Classific ation: Hematolog ical Agents metformin 500 mg tablet 2023-10 00:00: 00 08-01 23:59 :00 No [id number] 1 tablet 2 TIMES DAILY 1 tablet 2 TIMES DAILY (route: oral) Med Classific ation: Endocrine tramadol 50 mg tablet 2023-10 00:00: 00 08-01 23:59 :00 No [id number] 1 tablet 2 TIMES DAILY 1 tablet 2 TIMES DAILY (route: oral) Med Classific ation: Analgesic , Anti-infl ammatory or Antipyret ic Vitamin D3 25 mcg (1,000 unit) capsule 2023-10 00:00: 00 08-01 23:59 :00 No [id number] 1 capsule DAILY 1 capsule DAILY (route: oral) Med Classific ation: Electroly te Balance-N utritiona l Products aspirin 81 mg tablet,claire yed release 2023-10 00:00: 00 Yes [id number] 1 tablet DAILY 1 tablet DAILY (route: oral) Med Classific ation: Hematolog ical Agents betamethaso ne dipropionat e 0.05 % topical ointment 2023-10 00:00: 00 Yes [id number] Per instruc tions DAILY Per instructio ns DAILY (route: topical) Med Classific ation: Dermatolo gical carvedilol 6.25 mg tablet 2023-10 00:00: 00 Yes [id number] 1 tablet 2 TIMES DAILY 1 tablet 2 TIMES DAILY (route: oral) Med Classific ation: Cardiovas cular Therapy Agents clonidine HCl 0.2 mg tablet 2023-10 00:00: 00 Yes [id number] 1 tablet 3 TIMES DAILY 1 tablet 3 TIMES DAILY (route: oral) Med Classific ation: Cardiovas cular Therapy Agents losartan 50 mg tablet 2023-10 00:00: 00 Yes [id number] 1 tablet DAILY 1 tablet DAILY (route: oral) Med Classific ation: Cardiovas cular Therapy Agents naloxone 4 mg/actuatio n nasal spray 2023-10 00:00: 00 Yes [id number] 1 spray DIRECTED 1 spray DIRECTED (route: nasal) Med Classific ation: Antidotes and other Reversal Agents tramadol 50 mg tablet 2023-10 00:00: 00 Yes [id number] 1 tablet EVERY 6 HOURS 1 tablet EVERY 6 HOURS (route: oral) Med Classific ation: Analgesic , Anti-infl ammatory or Antipyret ic methocarbam ol 500 mg tablet 2023-10 00:00: 00 Yes [id number] 1 tablet 3 TIMES DAILY 1 tablet 3 TIMES DAILY (route: oral) Med Classific ation: Locomotor System gabapentin 100 mg capsule 2023-10 00:00: 00 Yes [id number] 1 capsule BEDTIME 1 capsule BEDTIME (route: oral) Med Classific ation: Central Nervous System Agents gentamicin 0.1 % topical ointment 2023-10 00:00: 00 Yes [id number] Per instruc tions DAILY Per instructio ns [...] CARE WILL BE ESTABLISHED THAT MEETS PATIENT'S INTERMEDIATE NEEDS AND INCLUDES PATIENT GOAL FOR HOME [...] ON PO ABT TO TREAT. DAUGHTER WILL OIL FIELD OPERATOR TODAY, CLIENT REFUSED TO HAVE SN PROVIDE [...] PT AND CAREGIVER INSTRUCTED TO CALL ANALISA CARING WITH ANY QUESTIONS OR CONCERNS AND/OR CHANGES IN CONDITION, STATE UNDERSTANDING</paragraph> Encounters Start Date/Time End Date/Time Encounter Type Admission Type Attending Clinicians Care Facility Care Department Encounter ID Discharge Date Discharge Status Discharge Condition Discharge Reason Percent Goals Met 2024-08-04 00:00:00 2024-10-02 00:00:00 Outpatient ELISHA ARRIETA [facility] [id number] 59.09
--- OUTSIDE RECORDS SUMMARY | 2024-09-18 02:41 | XMS_ITS | Clinical Summary ---
Author Organization Unknown Care Team Providers Care Sustainability Project Manager Name Role Phone NOELLE RUSSELL MD, REBECA Unavailable Unavailable YI ALEXIS, CLINICAL ROLL TRUCKER, ELISHA Un available Unavailable FABRICE FARR, DUANE Unavailable Unavailable Payers Payer Name Policy Type Policy Number Effective Date Expira tion Date MEDICARE - [facility] [place] - PDGM [id number] Problems Condition Name Condition Details Condition Category [...] OF NICOTINE DEPENDENCE Active 10-09 00:00: 00 TIME LOCK EXPERT (CURRENT) USE OF ASPIRIN Active 10-09 00:00: [...] 2023-10 00:00: 00 08-01 23:59 :00 No [id number] Per instruc tions TWICE A DAY FOR 7 DAYS Per instructio ns TWICE A DAY FOR 7 DAYS (route: oral) Med Classific ation: Anti-Infe ctive Agents ibuprofen 800 mg tablet 2023-10 00:00: 00 08-01 23:59 :00 No [id number] Per instruc tions EVERY 8 HOURS NEEDED Per instructio ns EVERY 8 HOURS NEEDED (route: oral) Med Classific ation: Analgesic , Anti-infl ammatory or Antipyret ic levofloxaci n 750 mg tablet 2023-10 00:00: 00 08-01 23:59 :00 No [id number] Per instruc tions EVERY DAY FOR 7 DAYS Per instructio ns EVERY DAY FOR 7 DAYS (route: oral) Med Classific ation: Anti-Infe ctive Agents methocarbam ol 500 mg tablet 2023-10 00:00: 00 08-01 23:59 :00 No [id number] Per instruc tions THREE TIMES A DAY NEEDED Per instructio ns THREE TIMES A DAY NEEDED (route: oral) Med Classific ation: Locomotor System clonidine HCl 0.2 mg tablet 2023-10 00:00: 00 08-01 23:59 :00 No [id number] Per instruc tions 3 TIMES A DAY Per instructio ns 3 TIMES A DAY (route: oral) Med Classific ation: Cardiovas cular Therapy Agents potassium chloride ER 20 mEq tablet,exte nded release 2023-10 0 00:00: 00 08-01 23:59 :00 No [id number] Per instruc tions EVERY DAY Per instructio ns EVERY DAY (route: oral) Med Classific ation: Electroly te Balance-N utritiona l Products Santyl 250 unit/gram topical ointment 07-04 00:00: 00 07-17 00:00 :00 No [id number] Per instruc tions Per instructio ns (route: topical) Med Classific ation: Dermatolo gical clonidine HCl 0.1 mg tablet 06-21 00:00: 00 07-17 00:00 :00 No [id number] Per instruc tions TWICE A DAY FOR 90 DAYS Per instructio ns TWICE A DAY FOR 90 DAYS (route: oral) Med Classific ation: Cardiovas cular Therapy Agents albuterol sulfate HFA 90 mcg/actuati on aerosol inhaler 2023-10 00:00: 00 08-01 23:59 :00 No [id number] 2 puff EVERY 6 HOURS 2 puff EVERY 6 HOURS (route: inhalation ) Med Classific ation: Respirato ry Therapy Agents Aspirin Childrens 81 mg chewable tablet 2023-10 00:00: 00 08-01 23:59 :00 No [id number] 1 tablet DAILY 1 tablet DAILY (route: oral) Med Classific ation: Hematolog ical Agents metformin 500 mg tablet 2023-10 00:00: 00 08-01 23:59 :00 No [id number] 1 tablet 2 TIMES DAILY 1 tablet 2 TIMES DAILY (route: oral) Med Classific ation: Endocrine tramadol 50 mg tablet 2023-10 00:00: 00 08-01 23:59 :00 No [id number] 1 tablet 2 TIMES DAILY 1 tablet 2 TIMES DAILY (route: oral) Med Classific ation: Analgesic , Anti-infl ammatory or Antipyret ic Vitamin D3 25 mcg (1,000 unit) capsule 2023-10 00:00: 00 08-01 23:59 :00 No [id number] 1 capsule DAILY 1 capsule DAILY (route: oral) Med Classific ation: Electroly te Balance-N utritiona l Products aspirin 81 mg tablet,claire yed release 2023-10 00:00: 00 Yes [id number] 1 tablet DAILY 1 tablet DAILY (route: oral) Med Classific ation: Hematolog ical Agents betamethaso ne dipropionat e 0.05 % topical ointment 2023-10 00:00: 00 Yes [id number] Per instruc tions DAILY Per instructio ns DAILY (route: topical) Med Classific ation: Dermatolo gical carvedilol 6.25 mg tablet 2023-10 00:00: 00 Yes [id number] 1 tablet 2 TIMES DAILY 1 tablet 2 TIMES DAILY (route: oral) Med Classific ation: Cardiovas cular Therapy Agents clonidine HCl 0.2 mg tablet 2023-10 00:00: 00 Yes [id number] 1 tablet 3 TIMES DAILY 1 tablet 3 TIMES DAILY (route: oral) Med Classific ation: Cardiovas cular Therapy Agents losartan 50 mg tablet 2023-10 00:00: 00 Yes [id number] 1 tablet DAILY 1 tablet DAILY (route: oral) Med Classific ation: Cardiovas cular Therapy Agents naloxone 4 mg/actuatio n nasal spray 2023-10 00:00: 00 Yes [id number] 1 spray DIRECTED 1 spray DIRECTED (route: nasal) Med Classific ation: Antidotes and other Reversal Agents tramadol 50 mg tablet 2023-10 00:00: 00 Yes [id number] 1 tablet EVERY 6 HOURS 1 tablet EVERY 6 HOURS (route: oral) Med Classific ation: Analgesic , Anti-infl ammatory or Antipyret ic methocarbam ol 500 mg tablet 2023-10 00:00: 00 Yes [id number] 1 tablet 3 TIMES DAILY 1 tablet 3 TIMES DAILY (route: oral) Med Classific ation: Locomotor System gabapentin 100 mg capsule 2023-10 00:00: 00 Yes [id number] 1 capsule BEDTIME 1 capsule BEDTIME (route: oral) Med Classific ation: Central Nervous System Agents gentamicin 0.1 % topical ointment 2023-10 00:00: 00 Yes [id number] Per instruc tions DAILY Per instructio ns [...] CARE WILL BE ESTABLISHED THAT MEETS PATIENT'S RETIREMENT NEEDS AND INCLUDES PATIENT GOAL FOR HOME [...] ON PO ABT TO TREAT. DAUGHTER WILL TECHNOLOGY EDUCATION INSTRUCTOR TODAY, CLIENT REFUSED TO HAVE SN PROVIDE [...] 00:00:00 2024-10-02 00:00:00 Outpatient ELISHA ARRIETA [facility] [id number] 59.09
--- OUTSIDE RECORDS SUMMARY | 2024-09-18 04:08 | XMS_ITS | Clinical Summary ---
Author Organization Unknown Care Team Providers Care Extract Mixer Name Role Phone NOELLE RUSSELL MD, REBECA Unavailable Unavailable YI ALEXIS, CLINICAL INDUSTRIAL PHOTOGRAPHER, ELISHA Un available Unavailable FABRICE FARR, DUANE Unavailable Unavailable Payers Payer Name Policy Type Policy Number Effective Date Expira tion Date MEDICARE - [facility] [place] - PDGM [id number] Problems Condition Name Condition Details Condition Category [...] OF NICOTINE DEPENDENCE Active 10-09 00:00: 00 WEB SITE ADMINISTRATOR (CURRENT) USE OF ASPIRIN Active 10-09 00:00: [...] 2023-10 00:00: 00 08-01 23:59 :00 No [id number] Per instruc tions TWICE A DAY FOR 7 DAYS Per instructio ns TWICE A DAY FOR 7 DAYS (route: oral) Med Classific ation: Anti-Infe ctive Agents ibuprofen 800 mg tablet 2023-10 00:00: 00 08-01 23:59 :00 No [id number] Per instruc tions EVERY 8 HOURS NEEDED Per instructio ns EVERY 8 HOURS NEEDED (route: oral) Med Classific ation: Analgesic , Anti-infl ammatory or Antipyret ic levofloxaci n 750 mg tablet 2023-10 00:00: 00 08-01 23:59 :00 No [id number] Per instruc tions EVERY DAY FOR 7 DAYS Per instructio ns EVERY DAY FOR 7 DAYS (route: oral) Med Classific ation: Anti-Infe ctive Agents methocarbam ol 500 mg tablet 2023-10 00:00: 00 08-01 23:59 :00 No [id number] Per instruc tions THREE TIMES A DAY NEEDED Per instructio ns THREE TIMES A DAY NEEDED (route: oral) Med Classific ation: Locomotor System clonidine HCl 0.2 mg tablet 2023-10 00:00: 00 08-01 23:59 :00 No [id number] Per instruc tions 3 TIMES A DAY Per instructio ns 3 TIMES A DAY (route: oral) Med Classific ation: Cardiovas cular Therapy Agents potassium chloride ER 20 mEq tablet,exte nded release 2023-10 0 00:00: 00 08-01 23:59 :00 No [id number] Per instruc tions EVERY DAY Per instructio ns EVERY DAY (route: oral) Med Classific ation: Electroly te Balance-N utritiona l Products Santyl 250 unit/gram topical ointment 07-04 00:00: 00 07-17 00:00 :00 No [id number] Per instruc tions Per instructio ns (route: topical) Med Classific ation: Dermatolo gical clonidine HCl 0.1 mg tablet 06-21 00:00: 00 07-17 00:00 :00 No [id number] Per instruc tions TWICE A DAY FOR 90 DAYS Per instructio ns TWICE A DAY FOR 90 DAYS (route: oral) Med Classific ation: Cardiovas cular Therapy Agents albuterol sulfate HFA 90 mcg/actuati on aerosol inhaler 2023-10 00:00: 00 08-01 23:59 :00 No [id number] 2 puff EVERY 6 HOURS 2 puff EVERY 6 HOURS (route: inhalation ) Med Classific ation: Respirato ry Therapy Agents Aspirin Childrens 81 mg chewable tablet 2023-10 00:00: 00 08-01 23:59 :00 No [id number] 1 tablet DAILY 1 tablet DAILY (route: oral) Med Classific ation: Hematolog ical Agents metformin 500 mg tablet 2023-10 00:00: 00 08-01 23:59 :00 No [id number] 1 tablet 2 TIMES DAILY 1 tablet 2 TIMES DAILY (route: oral) Med Classific ation: Endocrine tramadol 50 mg tablet 2023-10 00:00: 00 08-01 23:59 :00 No [id number] 1 tablet 2 TIMES DAILY 1 tablet 2 TIMES DAILY (route: oral) Med Classific ation: Analgesic , Anti-infl ammatory or Antipyret ic Vitamin D3 25 mcg (1,000 unit) capsule 2023-10 00:00: 00 08-01 23:59 :00 No [id number] 1 capsule DAILY 1 capsule DAILY (route: oral) Med Classific ation: Electroly te Balance-N utritiona l Products aspirin 81 mg tablet,claire yed release 2023-10 00:00: 00 Yes [id number] 1 tablet DAILY 1 tablet DAILY (route: oral) Med Classific ation: Hematolog ical Agents betamethaso ne dipropionat e 0.05 % topical ointment 2023-10 00:00: 00 Yes [id number] Per instruc tions DAILY Per instructio ns DAILY (route: topical) Med Classific ation: Dermatolo gical carvedilol 6.25 mg tablet 2023-10 00:00: 00 Yes [id number] 1 tablet 2 TIMES DAILY 1 tablet 2 TIMES DAILY (route: oral) Med Classific ation: Cardiovas cular Therapy Agents clonidine HCl 0.2 mg tablet 2023-10 00:00: 00 Yes [id number] 1 tablet 3 TIMES DAILY 1 tablet 3 TIMES DAILY (route: oral) Med Classific ation: Cardiovas cular Therapy Agents losartan 50 mg tablet 2023-10 00:00: 00 Yes [id number] 1 tablet DAILY 1 tablet DAILY (route: oral) Med Classific ation: Cardiovas cular Therapy Agents naloxone 4 mg/actuatio n nasal spray 2023-10 00:00: 00 Yes [id number] 1 spray DIRECTED 1 spray DIRECTED (route: nasal) Med Classific ation: Antidotes and other Reversal Agents tramadol 50 mg tablet 2023-10 00:00: 00 Yes [id number] 1 tablet EVERY 6 HOURS 1 tablet EVERY 6 HOURS (route: oral) Med Classific ation: Analgesic , Anti-infl ammatory or Antipyret ic methocarbam ol 500 mg tablet 2023-10 00:00: 00 Yes [id number] 1 tablet 3 TIMES DAILY 1 tablet 3 TIMES DAILY (route: oral) Med Classific ation: Locomotor System gabapentin 100 mg capsule 2023-10 00:00: 00 Yes [id number] 1 capsule BEDTIME 1 capsule BEDTIME (route: oral) Med Classific ation: Central Nervous System Agents gentamicin 0.1 % topical ointment 2023-10 00:00: 00 Yes [id number] Per instruc tions DAILY Per instructio ns [...] CARE WILL BE ESTABLISHED THAT MEETS PATIENT'S [facility] NEEDS AND INCLUDES PATIENT GOAL FOR HOME [...] ON PO ABT TO TREAT. DAUGHTER WILL LEARNING AND DEVELOPMENT CONSULTANT TODAY, CLIENT REFUSED TO HAVE SN PROVIDE [...] 2024-08-04 00:00:00 2024-10-02 00:00:00 Outpatient ELISHA ARRIETA [facility] [id number] 59.09
--- OUTSIDE RECORDS SUMMARY | 2024-09-18 04:08 | XMS_ITS | Clinical Summary ---
Author Organization Unknown Care Team Providers Care Body Service Team Member Name Role Phone NOELLE RUSSELL MD, REBECA Unavailable Unavailable YI ALEXIS, CLINICAL METAL CUTTER, EILSHA Un available Unavailable FABRICE FARR, DUANE Unavailable Unavailable Payers Payer Name Policy Type Policy Number Effective Date Expira tion Date MEDICARE - 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 Active 10-09 00:00: [...] 2023-10 00:00: 00 08-01 23:59 :00 No [id number] Per instruc tions TWICE A DAY FOR 7 DAYS Per instructio ns TWICE A DAY FOR 7 DAYS (route: oral) Med Classific ation: Anti-Infe ctive Agents ibuprofen 800 mg tablet 2023-10 00:00: 00 08-01 23:59 :00 No [id number] Per instruc tions EVERY 8 HOURS NEEDED Per instructio ns EVERY 8 HOURS NEEDED (route: oral) Med Classific ation: Analgesic , Anti-infl ammatory or Antipyret ic levofloxaci n 750 mg tablet 2023-10 00:00: 00 08-01 23:59 :00 No [id number] Per instruc tions EVERY DAY FOR 7 DAYS Per instructio ns EVERY DAY FOR 7 DAYS (route: oral) Med Classific ation: Anti-Infe ctive Agents methocarbam ol 500 mg tablet 2023-10 00:00: 00 08-01 23:59 :00 No [id number] Per instruc tions THREE TIMES A DAY NEEDED Per instructio ns THREE TIMES A DAY NEEDED (route: oral) Med Classific ation: Locomotor System clonidine HCl 0.2 mg tablet 2023-10 00:00: 00 08-01 23:59 :00 No [id number] Per instruc tions 3 TIMES A DAY Per instructio ns 3 TIMES A DAY (route: oral) Med Classific ation: Cardiovas cular Therapy Agents potassium chloride ER 20 mEq tablet,exte nded release 2023-10 0 00:00: 00 08-01 23:59 :00 No [id number] Per instruc tions EVERY DAY Per instructio ns EVERY DAY (route: oral) Med Classific ation: Electroly te Balance-N utritiona l Products Santyl 250 unit/gram topical ointment 07-04 00:00: 00 07-17 00:00 :00 No [id number] Per instruc tions Per instructio ns (route: topical) Med Classific ation: Dermatolo gical clonidine HCl 0.1 mg tablet 06-21 00:00: 00 07-17 00:00 :00 No [id number] Per instruc tions TWICE A DAY FOR 90 DAYS Per instructio ns TWICE A DAY FOR 90 DAYS (route: oral) Med Classific ation: Cardiovas cular Therapy Agents albuterol sulfate HFA 90 mcg/actuati on aerosol inhaler 2023-10 00:00: 00 08-01 23:59 :00 No [id number] 2 puff EVERY 6 HOURS 2 puff EVERY 6 HOURS (route: inhalation ) Med Classific ation: Respirato ry Therapy Agents Aspirin Childrens 81 mg chewable tablet 2023-10 00:00: 00 08-01 23:59 :00 No [id number] 1 tablet DAILY 1 tablet DAILY (route: oral) Med Classific ation: Hematolog ical Agents metformin 500 mg tablet 2023-10 00:00: 00 08-01 23:59 :00 No [id number] 1 tablet 2 TIMES DAILY 1 tablet 2 TIMES DAILY (route: oral) Med Classific ation: Endocrine tramadol 50 mg tablet 2023-10 00:00: 00 08-01 23:59 :00 No [id number] 1 tablet 2 TIMES DAILY 1 tablet 2 TIMES DAILY (route: oral) Med Classific ation: Analgesic , Anti-infl ammatory or Antipyret ic Vitamin D3 25 mcg (1,000 unit) capsule 2023-10 00:00: 00 08-01 23:59 :00 No [id number] 1 capsule DAILY 1 capsule DAILY (route: oral) Med Classific ation: Electroly te Balance-N utritiona l Products aspirin 81 mg tablet,claire yed release 2023-10 00:00: 00 Yes [id number] 1 tablet DAILY 1 tablet DAILY (route: oral) Med Classific ation: Hematolog ical Agents betamethaso ne dipropionat e 0.05 % topical ointment 2023-10 00:00: 00 Yes [id number] Per instruc tions DAILY Per instructio ns DAILY (route: topical) Med Classific ation: Dermatolo gical carvedilol 6.25 mg tablet 2023-10 00:00: 00 Yes [id number] 1 tablet 2 TIMES DAILY 1 tablet 2 TIMES DAILY (route: oral) Med Classific ation: Cardiovas cular Therapy Agents clonidine HCl 0.2 mg tablet 2023-10 00:00: 00 Yes [id number] 1 tablet 3 TIMES DAILY 1 tablet 3 TIMES DAILY (route: oral) Med Classific ation: Cardiovas cular Therapy Agents losartan 50 mg tablet 2023-10 00:00: 00 Yes [id number] 1 tablet DAILY 1 tablet DAILY (route: oral) Med Classific ation: Cardiovas cular Therapy Agents naloxone 4 mg/actuatio n nasal spray 2023-10 00:00: 00 Yes [id number] 1 spray DIRECTED 1 spray DIRECTED (route: nasal) Med Classific ation: Antidotes and other Reversal Agents tramadol 50 mg tablet 2023-10 00:00: 00 Yes [id number] 1 tablet EVERY 6 HOURS 1 tablet EVERY 6 HOURS (route: oral) Med Classific ation: Analgesic , Anti-infl ammatory or Antipyret ic methocarbam ol 500 mg tablet 2023-10 00:00: 00 Yes [id number] 1 tablet 3 TIMES DAILY 1 tablet 3 TIMES DAILY (route: oral) Med Classific ation: Locomotor System gabapentin 100 mg capsule 2023-10 00:00: 00 Yes [id number] 1 capsule BEDTIME 1 capsule BEDTIME (route: oral) Med Classific ation: Central Nervous System Agents gentamicin 0.1 % topical ointment 2023-10 00:00: 00 Yes [id number] Per instruc tions DAILY Per instructio ns [...] TO PROVIDE SKILLED TEACHING ON MANAGEMENT OF SETVE RESPIRATORY DISEASE PROCESS.] Future Scheduled Test NEED [...] CARE WILL BE ESTABLISHED THAT MEETS PATIENT'S CARE HOME NEEDS AND INCLUDES PATIENT GOAL FOR HOME [...] ON PO ABT TO TREAT. DAUGHTER WILL RING SEWER TODAY, CLIENT REFUSED TO HAVE SN PROVIDE [...] 2024-08-04 00:00:00 2024-10-02 00:00:00 Outpatient ELISHA ARRIETA [facility] [id number] 59.09
== END 2024-09-12 21:50 | disposition home or self-care (01) ==
PROVIDERS: Physician Assistant Medical; Emergency Provider Emergency Medicine; PCP Internal Medicine
DX: L03.115 Cellulitis of right lower limb (principal); L03.116 Cellulitis of left lower limb; M79.605 Pain in left leg; M79.604 Pain in right leg; I10 Essential (primary) hypertension; E11.9 Type 2 diabetes mellitus without complications; Z79.899 Other long term (current) drug therapy; Z87.891 Personal history of nicotine dependence
CPT/HCPCS: 36415; 80053; 83735; 85025; 99283; 99284

== ENCOUNTER 2024-09-14 12:28 | Emergency (ER) | payer MEDICARE, SELFPAY ==
--- NOTE | ~2024-09-14 | XR_ITS ---
EXAMINATION: XR CHEST CLINICAL INFORMATION: CP COMPARISON: October 19, 2017. TECHNIQUE: 2 views of the chest were obtained. FINDINGS: No significant abnormality is noted involving the heart, lungs, or soft tissues. The aorta is uncoiled, suggesting hypertension. Mild degenerative changes of the spine. XR/XR chest 2V IMPRESSION: No acute finding. Electronically signed by: Jose Maria Tolbert MD 09/14/2024 02:02 PM [facility]
--- NOTE | 2024-09-14 12:30 | ECG_ITS ---
Test Reason : chest pain Blood Pressure : / mmHG Vent. Rate : 070 BPM Atrial Rate : 070 BPM P-R Int : 206 ms QRS Dur : 172 ms QT Int : 464 ms P-R-T Axes : 003 -47 008 degrees QTc Int : 501 ms Normal sinus rhythm Right bundle branch block Left anterior fascicular block Bifascicular block Left ventricular hypertrophy with repolarization abnormality ( R in aVL ) Abnormal ECG When compared with ECG of 11-SEP-2024 11:27, Premature ventricular complexes are no longer Present IL interval has decreased T wave inversion less evident in Anterior leads Referred By: Myesha Verma Electronically Signed By:Aman Fuchs
[2024-09-14 12:37] VITALS: BP 138/78; PULSE 77; RESP 19; TEMP 36.6; O2SAT 97; BMI 39.5
--- NOTE | 2024-09-14 12:37 | ED.CHESTPAIN ---
HPI - Chest Pain General Chief Complaint: Chest Pain Stated Complaint: chest pain Time Seen by Provider: 09/14/24 17:04 Source: patient, RN notes reviewed and old records reviewed Mode of arrival: ambulatory Limitations: no limitations History of Present Illness ED Provider: Alana JONES narrative: 69-year-old female with past medical history significant for pyoderma gangrenosum, diabetes, hyperlipidemia, morbid obesity, hypertension presents for evaluation of chest pain. Patient reports a sudden onset of midsternal chest pain that was 10/10 that started 4-1/2 hours prior to my evaluation. She states that the pain has improved but is still present. She is unable to qualify the pain She reports that she vomited 1 time but has not had any abdominal pain Denies any history of coronary artery disease. She denies any leg swelling, recent travel, history of DVT or PE. She does have wounds to both of her legs that she is due to see wound care for on Monday She reports that the left leg seems to be healing well and the right leg is unchanged from baseline She denies any fevers, chills. She has no other complaints or concerns at this time Related Data Home Medications ?Medication ?Instructions ?Recorded ?Confirmed albuterol sulfate 90 mcg/actuation 2 puff inhalation Q6H PRN Wheezing 02/10/21 08/28/24 aerosol inhaler cholecalciferol (vitamin D3) 25 25 mcg PO DAILY 01/11/24 08/28/24 mcg (1,000 unit) tablet clonidine HCl 0.1 mg tablet 0.2 mg PO TID 07/12/24 08/28/24 betamethasone dipropionate 0.05 % 1 appl topical BID 08/14/24 08/28/24 topical cream naloxone 4 mg/actuation nasal spray intranasal 08/14/24 08/28/24 Previous Rx's ?Medication ?Instructions ?Recorded aspirin 81 mg tablet,delayed 81 mg PO DAILY 90 days #90 tabs 02/10/21 release (Adult Aspirin Regimen) compr.stocking,knee,long,large #2 ea 03/11/21 potassium chloride 20 mEq 20 meq PO DAILY #14 tabs 07/09/24 tablet,extended release losartan 50 mg tablet 50 mg PO BID #180 tabs 07/15/24 carvedilol 6.25 mg tablet 6.25 mg PO BID #180 tabs 08/28/24 gentamicin 0.1 % topical ointment 1 appl topical DAILY #15 grams 08/28/24 gabapentin 100 mg capsule 100 mg PO BEDTIME #30 caps 08/29/24 methocarbamol 500 mg tablet 500 mg PO TID PRN for pain #20 tabs 09/02/24 tramadol 50 mg tablet 50 mg PO Q8H PRN pain (scale score 09/04/24 7-10) #14 tabs ibuprofen 800 mg tablet 800 mg PO Q8H PRN pain 30 days #90 09/10/24 tabs morphine 15 mg immediate release 15 mg PO Q8H PRN pain #20 tabs 09/11/24 tablet cephalexin 500 mg capsule 500 mg PO QID 7 days #28 caps 09/12/24 Allergies Allergy/AdvReac Type Severity Reaction Status Date / Time amlodipine Allergy Intermediate drowsiness, Verified 09/14/24 12:39 swelling of feet and ankles lisinopril Allergy Intermediate cough Verified 09/14/24 12:39 hydralazine Allergy Swelling Verified 09/14/24 12:39 metformin AdvReac Diarrhea Verified 09/14/24 12:39 Lisinopril-Hydrochlorothiazide AdvReac Intermediate Leg Uncoded 09/14/24 12:39 swelling Metoprolol Tartrate AdvReac Intermediate Leg Uncoded 09/14/24 12:39 swelling Review of Systems Constitutional: Constitutional: Denies body ache(s), Denies chills and Denies fever(s) Eyes: Eyes: Denies blurry vision ENT: Denies vertigo and Denies dizziness Cardiovascular: Cardiovascular: Reports chest pain, Reports chest pain at rest and Denies dyspnea Respiratory: Respiratory: Denies cough and Denies dyspnea Gastrointestinal: Gastrointestinal: Denies abdominal pain, Denies nausea and Reports vomiting Genitourinary: Genitourinary: Denies dysuria Musculoskeletal: Musculoskeletal: Denies back pain Integumentary/Breasts: Skin/Breast: Denies rash Neurologic: Denies vertigo and Denies dizziness [facility] Past Medical History Medical History Hypertension Wound of lower extremity Venous stasis ulcer Chronic ulcer of left ankle Diabetes Hypertension Abnormal Pap smear of cervix Diabetes mellitus Hypertension Renal calculi Diastasis recti Dyslipidemia associated with type 2 diabetes mellitus Abdominal mass Microalbuminuria Renal calculi Morbid obesity Surgical History Hx of prior ablation treatment Family History Family History Father Seizures Mother Seizures Congenital heart disease in adult Hypotension Maternal Grandfather Leukemia Social History Social History Household Members: Family Housing: House Do you presently have visiting nurse or other home services: No Alcohol intake: current Alcohol intake frequency: holidays/special occasions only Alcohol type: wine Patient Tobacco Use Status: Former Tobacco user Tobacco use type: Cigarette Smoked in Last 30 Days: Yes e-Cigarette/Vaping Use: Never Used Second Hand Smoke Exposure: No Use of substances other than those prescribed or required for medical reasons: Yes Substance Use Type: Marijuana Advance Directives: No Advance Directives Information Provided: Yes Do you have a plan to hurt others: No Plan service: No Current occupational status: employed Current occupational exposures/hazards: No Cognitive needs: No Hearing needs: No Vision needs: No Physical Exam Vital Signs: Vital Signs: Last Vital Signs Temp 97.2 F 09/14/24 17:58 Pulse 69 09/14/24 17:58 Resp 9 L 09/14/24 17:58 BP 135/72 09/14/24 17:58 Pulse Ox 96 09/14/24 17:58 O2 Del Method Room Air 09/14/24 17:58 BMI result Body Mass Index 39.5 Const: General: healthy appearing, comfortable, no acute distress, alert and awake Nutritional Appearance: well nourished Orientation/consciousness: patient oriented x3 HEENT: Head: Yes normocephalic and Yes atraumatic Eyes: Eyelids: Yes eyelids normal Conjunctivae: conjunctivae normal Sclerae: sclerae normal Corneas: corneas normal Pupils: Equal, round and reactive pupils present EOM: EOMs intact bilaterally Neck: Neck: Yes full ROM Chest: Chest palpation & inspection: normal palpation of entire chest wall and no crepitus Resp: Effort & Inspection: normal respiratory effort, able to speak in complete sentences and not labored Cardio: Rate: regular rate Rhythm: regular rhythm GI: Inspection: No distended Palpation (GI): Soft to palpation, not firm, nontender, no guarding and not rigid Neuro: General: patient oriented x3 Cranial nerves: Yes Equal, round and reactive pupils present and Yes Bilaterally intact EOM present Cognition (Neuro): normal cognition Course Course Course Narrative: This is a rapid medical exam. Deferred additional HPI, ROS, PE to primary provider. 69 yo female with history of diabetes, HLD, HTN, obesity, possible pyoderma gangrenosum not on anticoagulation, chronic bilateral lower extremity wounds currently being treated for cellulitis with keflex here with complaints of chest pain since waking (around 630/7am). Will obtain labs, EKG, CXR CARRIE -Severo Verma APRN Reevaluation(s) Reevaluation #1: Patient's chest pain resolved with GI cocktail, she is stable for discharge at this time Time: 19:04 Medications Administered Discontinued Medications Generic Name Dose Route Start Last Admin Trade Name Freq PRN Reason Stop Dose Admin Al Hydroxide/Mg Hydroxide 30 ml 09/14/24 17:14 09/14/24 17:22 Magnesium Hydrox/Alum Hydrox 30 Ml Oral.Susp PO 09/14/24 17:15 30 ml ONCE ONE Administration Lidocaine HCl 15 ml 09/14/24 17:14 09/14/24 17:22 Lidocaine Hcl Viscous 2 % 15 Ml Solution MUCOUS MEM 09/14/24 17:15 15 ml ONCE ONE Administration Ondansetron HCl 4 mg 09/14/24 17:14 09/14/24 17:22 Ondansetron Odt 4 Mg Tab.Rapdis TRANSLINGU 09/14/24 17:15 4 mg ONCE ONE Administration Potassium Chloride 40 meq 09/14/24 17:16 09/14/24 17:22 Potassium Chloride Er 20 Meq Tab.Er.Prt PO 09/14/24 17:17 40 meq ONCE ONE Administration Medical Decision Making Medical Decision Making [facility] Narrative: 61-year-old female presents for evaluation of chest pain. She had labs, EKG, chest x-ray ordered in triage. Her EKG is a normal sinus rhythm with a rate of 70 beats minute. She has a known right bundle branch block. Her EKG actually looks slightly improved when compared to her previous from 3 days ago. No ischemic changes. Her chest x-ray shows no focal infiltrates or pleural effusions. Her troponin was elevated to 42 but a repeat troponin was also ordered which decreased to 39. The patient ruled out for ACS. Her potassium was low at 3.2. I suspect her chest pain may be GI related given her vomiting. We will try a GI cocktail and see how she responds. She is mildly hypertensive but I have a low suspicion for aortic disease, and the patient had a chest CT angiography 3 days ago that showed no evidence of PE or vascular disease Differential Diagnosis Differential Diagnoses: The differential diagnosis associated with the presentation includes Chest pain GERD Hypertension Anxiety ACS Lab Data MDM Lab Attestation statement: I reviewed the patient's lab results. No leukocytosis or significant anemia. Normal platelet count. Patient's sodium is normal, potassium is low at 3.2. She would vomit once but has not had any persistent vomiting. The patient does have a mild DEMARIO with a creatinine of 1.44 with a baseline about 1 this may be related to decreased oral intake, but also could be related to the IV contrast that she was received 3 days ago when she had a chest CT angiography. 09/14/24 13:43 09/14/24 13:43 Labs: Lab Results 09/14/24 09/14/24 Range/Units 13:43 15:39 WBC 8.3 (4.8-10.8) X10*3/uL RBC 4.01 L (4.20-5.50) X10*6/uL Hgb 12.0 (12.0-16.0) g/dl Hct 34.4 L (37.0-47.0) % MCV 85.8 (80.0-98.0) fL MCH 29.9 (27.0-33.0) pg MCHC 34.9 (31.0-35.0) g/dl RDW 12.9 (11.0-16.0) % Plt Count 256 (160-400) X10*3/uL MPV 9.2 L (9.4-12.3) fL Immature Gran % (Auto) 0.2 (0.0-0.4) % Neut % (Auto) 67.9 (45-73) % Lymph % (Auto) 20.2 (20-40) % Dixon % (Auto) 9.1 (2-11) % Eos % (Auto) 2.0 (0-4) % Baso % (Auto) 0.6 (0-2) % Lymph # (Auto) 1.7 (1.2-4.9) X10*3/uL Dixon # (Auto) 0.8 (0.1-1.2) X10*3/uL Eos # (Auto) 0.2 (0.0-0.4) X10*3/uL Baso # (Auto) 0.1 (0.0-0.2) X10*3/uL Abs Immat Gran (auto) 0.02 (0.00-0.03) X10*3/uL Absolute Neuts (auto) 5.7 (2.0-8.3) x10*3/uL Absolute Nucleated RBC 0.000 (0.0-0.012) X10*3/uL Nucleated RBC % (auto) 0.0 (0.0-0.2) /100WBC PT 14.0 H (10.9-12.4) SEC INR 1.2 H (0.9-1.1) Sodium 139 (135-145) mmol/L Potassium 3.2 L (3.3-5.1) mmol/L Chloride 97 (96-108) mmol/L Carbon Dioxide 29 (22-29) mmol/L Anion Gap 16 (12-20) BUN 13 (9-16) mg/dL Creatinine 1.44 H (0.5-1.4) mg/dL Estim Creat Clear Calc 48.8 Estimated GFR 36 Random Glucose 173 H (60-115) mg/dL Calcium 9.6 (8.4-10.2) mg/dL Total Bilirubin 0.7 (0.0-1.0) mg/dL Direct Bilirubin 0.3 (0.0-0.5) mg/dL AST 25 (5-31) U/L ALT 7 (0-31) U/L Alkaline Phosphatase 57 (39-117) U/L Troponin I High Sens 42.5 H D 39.8 H (<3.5-17.0) ng/L Total Protein 7.2 (6.5-8.0) g/dL Albumin 3.6 (3.5-5.0) g/dL Independent Interpretation I performed an independent interpretation of an: EKG (As above) and Plain X-Ray (No focal infiltrates) Radiology Impression Discussion of test interpretation with radiology: I have reviewed the radiologist's reading. Radiologist Impression: FINDINGS: No significant abnormality is noted involving the heart, lungs, or soft tissues. The aorta is uncoiled, suggesting hypertension. Mild degenerative changes of the spine. XR/XR chest 2V IMPRESSION: No acute finding. Electronically signed by: Jose Maria Tolbert MD 09/14/2024 02:02 PM [facility] Discharge Plan Discharge Clinical Impression: Chest pain Patient Disposition: Home, Self-Care Instructions: Chest Pain (ED) Additional Instructions: Your workup in the ER today was reassuring. This includes your blood work, chest x-ray, EKG. Your symptoms may be related to GERD I recommend that you follow-up with your primary doctor, return for new or worsening symptoms Prescriptions: No Action gabapentin 100 mg capsule 100 mg PO BEDTIME Qty: 30 0RF methocarbamol 500 mg tablet 500 mg PO TID PRN (Reason: for pain) Qty: 20 0RF tramadol 50 mg tablet 50 mg PO Q8H PRN (Reason: pain (scale score 7-10)) Qty: 14 0RF ibuprofen 800 mg tablet 800 mg PO Q8H PRN (Reason: pain) 30 Days Qty: 90 1RF potassium chloride 20 mEq tablet extended release 20 meq PO DAILY Qty: 14 0RF cephalexin 500 mg capsule 500 mg PO QID 7 Days Qty: 28 0RF cholecalciferol (vitamin D3) 25 mcg (1,000 unit) Tablet 25 mcg PO DAILY clonidine HCl 0.1 mg tablet 0.2 mg PO TID losartan 50 mg Tablet 50 mg PO BID Qty: 180 0RF Protocol: Hold for SBP< HOLD for SBP < : 90 morphine 15 mg tablet 15 mg PO Q8H PRN (Reason: pain) Qty: 20 0RF Rx Instructions: Partial Fill upon patient request. albuterol sulfate 90 mcg/actuation HFA aerosol inhaler 2 puff inhalation Q6H PRN (Reason: Wheezing) aspirin [Adult Aspirin Regimen] 81 mg tablet,delayed release (DR/EC) 81 mg PO DAILY 90 Days Qty: 90 2RF (DME) compr.stocking,knee,long,large Misc See Rx Instructions .ROUTE .MEDSUPPLY Qty: 2 0RF Rx Instructions: As directed betamethasone dipropionate 0.05 % cream 1 appl topical BID naloxone 4 mg/actuation spray,non-aerosol intranasal gentamicin 0.1 % ointment 1 appl topical DAILY Qty: 15 0RF carvedilol 6.25 mg tablet 6.25 mg PO BID Qty: 180 1RF Protocol: Hold for SBP/HR < HOLD for SBP < : 90 HOLD for HR < : 60 Print Language: Omani
[2024-09-14 13:46] LABS: MANUAL DIFF FLAG NO
[2024-09-14 13:51] LABS: Basophils Absolute Auto 0.1 X10*3/uL (0.0-0.2); Basophils Percent Auto 0.6 % (0-2); Eosinophils Absolute Auto 0.2 X10*3/uL (0.0-0.4); Hematocrit 34.4 % (37.0-47.0); Imm Gran Abs Auto 0.02 X10*3/uL (0.00-0.03); Imm Gran Pct Auto 0.2 % (0.0-0.4); Lymphocytes Absolute Auto 1.7 X10*3/uL (1.2-4.9); Lymphocytes Percent Auto 20.2 % (20-40); Mean Corpuscular HGB Conc 34.9 g/dl (31.0-35.0); Mean Corpuscular Hemoglobin 29.9 pg (27.0-33.0); Mean Corpuscular Volume 85.8 fL (80.0-98.0); Mean Platelet Volume 9.2 fL (9.4-12.3); Monocytes Absolute Auto 0.8 X10*3/uL (0.1-1.2); Monocytes Percent Auto 9.1 % (2-11); Neutrophils Absolute Auto 5.7 x10*3/uL (2.0-8.3); Neutrophils Percent Auto 67.9 % (45-73); Platelet Count 256 X10*3/uL (160-400); Red Blood Count 4.01 X10*6/uL (4.20-5.50); Red Cell Distribution Width 12.9 % (11.0-16.0); White Blood Count 8.3 X10*3/uL (4.8-10.8)
[2024-09-14 13:56] LABS: INTERNATIONAL NORM RATIO 1.2 (0.9-1.1)
[2024-09-14 14:15] LABS: Alanine Aminotransferase 7 U/L (0-31); Albumin Level 3.6 g/dL (3.5-5.0); Alkaline Phosphatase 57 U/L (39-117); Anion Gap 16 (12-20); Aspartate Amino Transferase 25 U/L (5-31); Bilirubin Direct 0.3 mg/dL (0.0-0.5); Bilirubin Total 0.7 mg/dL (0.0-1.0); Blood Urea Nitrogen 13 mg/dL (9-16); Calcium 9.6 mg/dL (8.4-10.2); Carbon Dioxide 29 mmol/L (22-29); Chloride 97 mmol/L (96-108); Creatinine Clr Calc Pharmacy 48.8; Estimated Glomerular Filt Rate 36; Glucose Random 173 mg/dL (60-115); Potassium 3.2 mmol/L (3.3-5.1); Sodium 139 mmol/L (135-145); Total Protein 7.2 g/dL (6.5-8.0)
[2024-09-14 14:22] LABS: Troponin-I High Sensitivity 42.5 ng/L (<3.5-17.0)
[2024-09-14 16:17] LABS: Troponin-I High Sensitivity 39.8 ng/L (<3.5-17.0)
[2024-09-14 17:07] VITALS: BP 139/83; PULSE 60; RESP 16; TEMP 36.6; O2SAT 97
--- NOTE | 2024-09-14 17:08 | PC.NURSE ---
pt brought from wr to room 14, pt c/o mid sternal chest discomfort 06/18- non radiating, denies sob, pt vomited. vss, awake overnight monitor applied nsr on monitor, call woods within reach, will continue to monitor
[2024-09-14] MEDS: Magnesium Hydrox/Alum Hydrox 30 ML ORAL.SUSP PO (17:22)
[2024-09-14] MEDS: Potassium Chloride ER 20 MEQ TAB.ER.PRT 40 MEQ PO (17:22)
[2024-09-14] MEDS: Lidocaine HCl Viscous 2 % 15 ML SOLUTION MUCOUS MEM (17:22)
[2024-09-14] MEDS: Ondansetron ODT 4 MG TAB.RAPDIS TRANSLINGU (17:22)
--- NOTE | 2024-09-14 17:25 | PC.NURSE ---
pt medicated per order
[2024-09-14 17:58] VITALS: BP 135/72; PULSE 69; RESP 9; TEMP 36.2; O2SAT 96
[2024-09-14 19:46] VITALS: BP 133/66; PULSE 75; RESP 18; TEMP 36.7; O2SAT 99
--- OUTSIDE RECORDS SUMMARY | 2024-09-18 11:49 | XMS_ITS | Clinical Summary ---
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 Active 10-09 00:00: [...] 2023-10 00:00: 00 08-01 23:59 :00 No [id number] Per instruc tions TWICE A DAY FOR 7 DAYS Per instructio ns TWICE A DAY FOR 7 DAYS (route: oral) Med Classific ation: Anti-Infe ctive Agents ibuprofen 800 mg tablet 2023-10 00:00: 00 08-01 23:59 :00 No [id number] Per instruc tions EVERY 8 HOURS NEEDED Per instructio ns EVERY 8 HOURS NEEDED (route: oral) Med Classific ation: Analgesic , Anti-infl ammatory or Antipyret ic levofloxaci n 750 mg tablet 2023-10 00:00: 00 08-01 23:59 :00 No [id number] Per instruc tions EVERY DAY FOR 7 DAYS Per instructio ns EVERY DAY FOR 7 DAYS (route: oral) Med Classific ation: Anti-Infe ctive Agents methocarbam ol 500 mg tablet 2023-10 00:00: 00 08-01 23:59 :00 No [id number] Per instruc tions THREE TIMES A DAY NEEDED Per instructio ns THREE TIMES A DAY NEEDED (route: oral) Med Classific ation: Locomotor System clonidine HCl 0.2 mg tablet 2023-10 00:00: 00 08-01 23:59 :00 No [id number] Per instruc tions 3 TIMES A DAY Per instructio ns 3 TIMES A DAY (route: oral) Med Classific ation: Cardiovas cular Therapy Agents potassium chloride ER 20 mEq tablet,exte nded release 2023-10 0 00:00: 00 08-01 23:59 :00 No [id number] Per instruc tions EVERY DAY Per instructio ns EVERY DAY (route: oral) Med Classific ation: Electroly te Balance-N utritiona l Products Santyl 250 unit/gram topical ointment 07-04 00:00: 00 07-17 00:00 :00 No [id number] Per instruc tions Per instructio ns (route: topical) Med Classific ation: Dermatolo gical clonidine HCl 0.1 mg tablet 06-21 00:00: 00 07-17 00:00 :00 No [id number] Per instruc tions TWICE A DAY FOR 90 DAYS Per instructio ns TWICE A DAY FOR 90 DAYS (route: oral) Med Classific ation: Cardiovas cular Therapy Agents albuterol sulfate HFA 90 mcg/actuati on aerosol inhaler 2023-10 00:00: 00 08-01 23:59 :00 No [id number] 2 puff EVERY 6 HOURS 2 puff EVERY 6 HOURS (route: inhalation ) Med Classific ation: Respirato ry Therapy Agents Aspirin Childrens 81 mg chewable tablet 2023-10 00:00: 00 08-01 23:59 :00 No [id number] 1 tablet DAILY 1 tablet DAILY (route: oral) Med Classific ation: Hematolog ical Agents metformin 500 mg tablet 2023-10 00:00: 00 08-01 23:59 :00 No [id number] 1 tablet 2 TIMES DAILY 1 tablet 2 TIMES DAILY (route: oral) Med Classific ation: Endocrine tramadol 50 mg tablet 2023-10 00:00: 00 08-01 23:59 :00 No [id number] 1 tablet 2 TIMES DAILY 1 tablet 2 TIMES DAILY (route: oral) Med Classific ation: Analgesic , Anti-infl ammatory or Antipyret ic Vitamin D3 25 mcg (1,000 unit) capsule 2023-10 00:00: 00 08-01 23:59 :00 No [id number] 1 capsule DAILY 1 capsule DAILY (route: oral) Med Classific ation: Electroly te Balance-N utritiona l Products aspirin 81 mg tablet,claire yed release 2023-10 00:00: 00 Yes [id number] 1 tablet DAILY 1 tablet DAILY (route: oral) Med Classific ation: Hematolog ical Agents betamethaso ne dipropionat e 0.05 % topical ointment 2023-10 00:00: 00 Yes [id number] Per instruc tions DAILY Per instructio ns DAILY (route: topical) Med Classific ation: Dermatolo gical carvedilol 6.25 mg tablet 2023-10 00:00: 00 Yes [id number] 1 tablet 2 TIMES DAILY 1 tablet 2 TIMES DAILY (route: oral) Med Classific ation: Cardiovas cular Therapy Agents clonidine HCl 0.2 mg tablet 2023-10 00:00: 00 Yes [id number] 1 tablet 3 TIMES DAILY 1 tablet 3 TIMES DAILY (route: oral) Med Classific ation: Cardiovas cular Therapy Agents losartan 50 mg tablet 2023-10 00:00: 00 Yes [id number] 1 tablet DAILY 1 tablet DAILY (route: oral) Med Classific ation: Cardiovas cular Therapy Agents naloxone 4 mg/actuatio n nasal spray 2023-10 00:00: 00 Yes [id number] 1 spray DIRECTED 1 spray DIRECTED (route: nasal) Med Classific ation: Antidotes and other Reversal Agents tramadol 50 mg tablet 2023-10 00:00: 00 Yes [id number] 1 tablet EVERY 6 HOURS 1 tablet EVERY 6 HOURS (route: oral) Med Classific ation: Analgesic , Anti-infl ammatory or Antipyret ic methocarbam ol 500 mg tablet 2023-10 00:00: 00 Yes [id number] 1 tablet 3 TIMES DAILY 1 tablet 3 TIMES DAILY (route: oral) Med Classific ation: Locomotor System gabapentin 100 mg capsule 2023-10 00:00: 00 Yes [id number] 1 capsule BEDTIME 1 capsule BEDTIME (route: oral) Med Classific ation: Central Nervous System Agents gentamicin 0.1 % topical ointment 2023-10 00:00: 00 Yes [id number] Per instruc tions DAILY Per instructio ns [...] ON PO ABT TO TREAT. DAUGHTER WILL BACK ROLL LATHE OPERATOR TODAY, CLIENT REFUSED TO HAVE SN [...] 2024-08-04 00:00:00 2024-10-02 00:00:00 Outpatient ELISHA ARRIETA [facility] [id number] 59.09
--- OUTSIDE RECORDS SUMMARY | 2024-09-18 11:49 | XMS_ITS | Clinical Summary ---
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 Active 10-09 00:00: [...] 2023-10 00:00: 00 08-01 23:59 :00 No [id number] Per instruc tions TWICE A DAY FOR 7 DAYS Per instructio ns TWICE A DAY FOR 7 DAYS (route: oral) Med Classific ation: Anti-Infe ctive Agents ibuprofen 800 mg tablet 2023-10 00:00: 00 08-01 23:59 :00 No [id number] Per instruc tions EVERY 8 HOURS NEEDED Per instructio ns EVERY 8 HOURS NEEDED (route: oral) Med Classific ation: Analgesic , Anti-infl ammatory or Antipyret ic levofloxaci n 750 mg tablet 2023-10 00:00: 00 08-01 23:59 :00 No [id number] Per instruc tions EVERY DAY FOR 7 DAYS Per instructio ns EVERY DAY FOR 7 DAYS (route: oral) Med Classific ation: Anti-Infe ctive Agents methocarbam ol 500 mg tablet 2023-10 00:00: 00 08-01 23:59 :00 No [id number] Per instruc tions THREE TIMES A DAY NEEDED Per instructio ns THREE TIMES A DAY NEEDED (route: oral) Med Classific ation: Locomotor System clonidine HCl 0.2 mg tablet 2023-10 00:00: 00 08-01 23:59 :00 No [id number] Per instruc tions 3 TIMES A DAY Per instructio ns 3 TIMES A DAY (route: oral) Med Classific ation: Cardiovas cular Therapy Agents potassium chloride ER 20 mEq tablet,exte nded release 2023-10 0 00:00: 00 08-01 23:59 :00 No [id number] Per instruc tions EVERY DAY Per instructio ns EVERY DAY (route: oral) Med Classific ation: Electroly te Balance-N utritiona l Products Santyl 250 unit/gram topical ointment 07-04 00:00: 00 07-17 00:00 :00 No [id number] Per instruc tions Per instructio ns (route: topical) Med Classific ation: Dermatolo gical clonidine HCl 0.1 mg tablet 06-21 00:00: 00 07-17 00:00 :00 No [id number] Per instruc tions TWICE A DAY FOR 90 DAYS Per instructio ns TWICE A DAY FOR 90 DAYS (route: oral) Med Classific ation: Cardiovas cular Therapy Agents albuterol sulfate HFA 90 mcg/actuati on aerosol inhaler 2023-10 00:00: 00 08-01 23:59 :00 No [id number] 2 puff EVERY 6 HOURS 2 puff EVERY 6 HOURS (route: inhalation ) Med Classific ation: Respirato ry Therapy Agents Aspirin Childrens 81 mg chewable tablet 2023-10 00:00: 00 08-01 23:59 :00 No [id number] 1 tablet DAILY 1 tablet DAILY (route: oral) Med Classific ation: Hematolog ical Agents metformin 500 mg tablet 2023-10 00:00: 00 08-01 23:59 :00 No [id number] 1 tablet 2 TIMES DAILY 1 tablet 2 TIMES DAILY (route: oral) Med Classific ation: Endocrine tramadol 50 mg tablet 2023-10 00:00: 00 08-01 23:59 :00 No [id number] 1 tablet 2 TIMES DAILY 1 tablet 2 TIMES DAILY (route: oral) Med Classific ation: Analgesic , Anti-infl ammatory or Antipyret ic Vitamin D3 25 mcg (1,000 unit) capsule 2023-10 00:00: 00 08-01 23:59 :00 No [id number] 1 capsule DAILY 1 capsule DAILY (route: oral) Med Classific ation: Electroly te Balance-N utritiona l Products aspirin 81 mg tablet,claire yed release 2023-10 00:00: 00 Yes [id number] 1 tablet DAILY 1 tablet DAILY (route: oral) Med Classific ation: Hematolog ical Agents betamethaso ne dipropionat e 0.05 % topical ointment 2023-10 00:00: 00 Yes [id number] Per instruc tions DAILY Per instructio ns DAILY (route: topical) Med Classific ation: Dermatolo gical carvedilol 6.25 mg tablet 2023-10 00:00: 00 Yes [id number] 1 tablet 2 TIMES DAILY 1 tablet 2 TIMES DAILY (route: oral) Med Classific ation: Cardiovas cular Therapy Agents clonidine HCl 0.2 mg tablet 2023-10 00:00: 00 Yes [id number] 1 tablet 3 TIMES DAILY 1 tablet 3 TIMES DAILY (route: oral) Med Classific ation: Cardiovas cular Therapy Agents losartan 50 mg tablet 2023-10 00:00: 00 Yes [id number] 1 tablet DAILY 1 tablet DAILY (route: oral) Med Classific ation: Cardiovas cular Therapy Agents naloxone 4 mg/actuatio n nasal spray 2023-10 00:00: 00 Yes [id number] 1 spray DIRECTED 1 spray DIRECTED (route: nasal) Med Classific ation: Antidotes and other Reversal Agents tramadol 50 mg tablet 2023-10 00:00: 00 Yes [id number] 1 tablet EVERY 6 HOURS 1 tablet EVERY 6 HOURS (route: oral) Med Classific ation: Analgesic , Anti-infl ammatory or Antipyret ic methocarbam ol 500 mg tablet 2023-10 00:00: 00 Yes [id number] 1 tablet 3 TIMES DAILY 1 tablet 3 TIMES DAILY (route: oral) Med Classific ation: Locomotor System gabapentin 100 mg capsule 2023-10 00:00: 00 Yes [id number] 1 capsule BEDTIME 1 capsule BEDTIME (route: oral) Med Classific ation: Central Nervous System Agents gentamicin 0.1 % topical ointment 2023-10 00:00: 00 Yes [id number] Per instruc tions DAILY Per instructio ns [...] CARE WILL BE ESTABLISHED THAT MEETS PATIENT'S SNF NEEDS AND INCLUDES PATIENT GOAL FOR HOME [...] ON PO ABT TO TREAT. DAUGHTER WILL MANAGER STORY TODAY, CLIENT REFUSED TO HAVE SN PROVIDE [...] 2024-08-04 00:00:00 2024-10-02 00:00:00 Outpatient ELISHA ARRIETA [facility] [id number] 59.09
--- OUTSIDE RECORDS SUMMARY | 2024-09-18 11:49 | XMS_ITS | Clinical Summary ---
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 Active 10-09 00:00: [...] 2023-10 00:00: 00 08-01 23:59 :00 No [id number] Per instruc tions TWICE A DAY FOR 7 DAYS Per instructio ns TWICE A DAY FOR 7 DAYS (route: oral) Med Classific ation: Anti-Infe ctive Agents ibuprofen 800 mg tablet 2023-10 00:00: 00 08-01 23:59 :00 No [id number] Per instruc tions EVERY 8 HOURS NEEDED Per instructio ns EVERY 8 HOURS NEEDED (route: oral) Med Classific ation: Analgesic , Anti-infl ammatory or Antipyret ic levofloxaci n 750 mg tablet 2023-10 00:00: 00 08-01 23:59 :00 No [id number] Per instruc tions EVERY DAY FOR 7 DAYS Per instructio ns EVERY DAY FOR 7 DAYS (route: oral) Med Classific ation: Anti-Infe ctive Agents methocarbam ol 500 mg tablet 2023-10 00:00: 00 08-01 23:59 :00 No [id number] Per instruc tions THREE TIMES A DAY NEEDED Per instructio ns THREE TIMES A DAY NEEDED (route: oral) Med Classific ation: Locomotor System clonidine HCl 0.2 mg tablet 2023-10 00:00: 00 08-01 23:59 :00 No [id number] Per instruc tions 3 TIMES A DAY Per instructio ns 3 TIMES A DAY (route: oral) Med Classific ation: Cardiovas cular Therapy Agents potassium chloride ER 20 mEq tablet,exte nded release 2023-10 0 00:00: 00 08-01 23:59 :00 No [id number] Per instruc tions EVERY DAY Per instructio ns EVERY DAY (route: oral) Med Classific ation: Electroly te Balance-N utritiona l Products Santyl 250 unit/gram topical ointment 07-04 00:00: 00 07-17 00:00 :00 No [id number] Per instruc tions Per instructio ns (route: topical) Med Classific ation: Dermatolo gical clonidine HCl 0.1 mg tablet 06-21 00:00: 00 07-17 00:00 :00 No [id number] Per instruc tions TWICE A DAY FOR 90 DAYS Per instructio ns TWICE A DAY FOR 90 DAYS (route: oral) Med Classific ation: Cardiovas cular Therapy Agents albuterol sulfate HFA 90 mcg/actuati on aerosol inhaler 2023-10 00:00: 00 08-01 23:59 :00 No [id number] 2 puff EVERY 6 HOURS 2 puff EVERY 6 HOURS (route: inhalation ) Med Classific ation: Respirato ry Therapy Agents Aspirin Childrens 81 mg chewable tablet 2023-10 00:00: 00 08-01 23:59 :00 No [id number] 1 tablet DAILY 1 tablet DAILY (route: oral) Med Classific ation: Hematolog ical Agents metformin 500 mg tablet 2023-10 00:00: 00 08-01 23:59 :00 No [id number] 1 tablet 2 TIMES DAILY 1 tablet 2 TIMES DAILY (route: oral) Med Classific ation: Endocrine tramadol 50 mg tablet 2023-10 00:00: 00 08-01 23:59 :00 No [id number] 1 tablet 2 TIMES DAILY 1 tablet 2 TIMES DAILY (route: oral) Med Classific ation: Analgesic , Anti-infl ammatory or Antipyret ic Vitamin D3 25 mcg (1,000 unit) capsule 2023-10 00:00: 00 08-01 23:59 :00 No [id number] 1 capsule DAILY 1 capsule DAILY (route: oral) Med Classific ation: Electroly te Balance-N utritiona l Products aspirin 81 mg tablet,claire yed release 2023-10 00:00: 00 Yes [id number] 1 tablet DAILY 1 tablet DAILY (route: oral) Med Classific ation: Hematolog ical Agents betamethaso ne dipropionat e 0.05 % topical ointment 2023-10 00:00: 00 Yes [id number] Per instruc tions DAILY Per instructio ns DAILY (route: topical) Med Classific ation: Dermatolo gical carvedilol 6.25 mg tablet 2023-10 00:00: 00 Yes [id number] 1 tablet 2 TIMES DAILY 1 tablet 2 TIMES DAILY (route: oral) Med Classific ation: Cardiovas cular Therapy Agents clonidine HCl 0.2 mg tablet 2023-10 00:00: 00 Yes [id number] 1 tablet 3 TIMES DAILY 1 tablet 3 TIMES DAILY (route: oral) Med Classific ation: Cardiovas cular Therapy Agents losartan 50 mg tablet 2023-10 00:00: 00 Yes [id number] 1 tablet DAILY 1 tablet DAILY (route: oral) Med Classific ation: Cardiovas cular Therapy Agents naloxone 4 mg/actuatio n nasal spray 2023-10 00:00: 00 Yes [id number] 1 spray DIRECTED 1 spray DIRECTED (route: nasal) Med Classific ation: Antidotes and other Reversal Agents tramadol 50 mg tablet 2023-10 00:00: 00 Yes [id number] 1 tablet EVERY 6 HOURS 1 tablet EVERY 6 HOURS (route: oral) Med Classific ation: Analgesic , Anti-infl ammatory or Antipyret ic methocarbam ol 500 mg tablet 2023-10 00:00: 00 Yes [id number] 1 tablet 3 TIMES DAILY 1 tablet 3 TIMES DAILY (route: oral) Med Classific ation: Locomotor System gabapentin 100 mg capsule 2023-10 00:00: 00 Yes [id number] 1 capsule BEDTIME 1 capsule BEDTIME (route: oral) Med Classific ation: Central Nervous System Agents gentamicin 0.1 % topical ointment 2023-10 00:00: 00 Yes [id number] Per instruc tions DAILY Per instructio ns [...] WILL BE ESTABLISHED THAT MEETS PATIENT'S SENIOR LIVING NEEDS AND INCLUDES PATIENT GOAL FOR HOME [...] ON PO ABT TO TREAT. DAUGHTER WILL RANCH COOK TODAY, CLIENT REFUSED TO HAVE SN PROVIDE [...] 00:00:00 Outpatient ELISHA ARRIETA [facility] [id number]
--- OUTSIDE RECORDS SUMMARY | 2024-09-18 11:49 | XMS_ITS | Clinical Summary ---
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 Active 10-09 [...] 2023-10 00:00: 00 08-01 23:59 :00 No [id number] Per instruc tions TWICE A DAY FOR 7 DAYS Per instructio ns TWICE A DAY FOR 7 DAYS (route: oral) Med Classific ation: Anti-Infe ctive Agents ibuprofen 800 mg tablet 2023-10 00:00: 00 08-01 23:59 :00 No [id number] Per instruc tions EVERY 8 HOURS NEEDED Per instructio ns EVERY 8 HOURS NEEDED (route: oral) Med Classific ation: Analgesic , Anti-infl ammatory or Antipyret ic levofloxaci n 750 mg tablet 2023-10 00:00: 00 08-01 23:59 :00 No [id number] Per instruc tions EVERY DAY FOR 7 DAYS Per instructio ns EVERY DAY FOR 7 DAYS (route: oral) Med Classific ation: Anti-Infe ctive Agents methocarbam ol 500 mg tablet 2023-10 00:00: 00 08-01 23:59 :00 No [id number] Per instruc tions THREE TIMES A DAY NEEDED Per instructio ns THREE TIMES A DAY NEEDED (route: oral) Med Classific ation: Locomotor System clonidine HCl 0.2 mg tablet 2023-10 00:00: 00 08-01 23:59 :00 No [id number] Per instruc tions 3 TIMES A DAY Per instructio ns 3 TIMES A DAY (route: oral) Med Classific ation: Cardiovas cular Therapy Agents potassium chloride ER 20 mEq tablet,exte nded release 2023-10 0 00:00: 00 08-01 23:59 :00 No [id number] Per instruc tions EVERY DAY Per instructio ns EVERY DAY (route: oral) Med Classific ation: Electroly te Balance-N utritiona l Products Santyl 250 unit/gram topical ointment 07-04 00:00: 00 07-17 00:00 :00 No [id number] Per instruc tions Per instructio ns (route: topical) Med Classific ation: Dermatolo gical clonidine HCl 0.1 mg tablet 06-21 00:00: 00 07-17 00:00 :00 No [id number] Per instruc tions TWICE A DAY FOR 90 DAYS Per instructio ns TWICE A DAY FOR 90 DAYS (route: oral) Med Classific ation: Cardiovas cular Therapy Agents albuterol sulfate HFA 90 mcg/actuati on aerosol inhaler 2023-10 00:00: 00 08-01 23:59 :00 No [id number] 2 puff EVERY 6 HOURS 2 puff EVERY 6 HOURS (route: inhalation ) Med Classific ation: Respirato ry Therapy Agents Aspirin Childrens 81 mg chewable tablet 2023-10 00:00: 00 08-01 23:59 :00 No [id number] 1 tablet DAILY 1 tablet DAILY (route: oral) Med Classific ation: Hematolog ical Agents metformin 500 mg tablet 2023-10 00:00: 00 08-01 23:59 :00 No [id number] 1 tablet 2 TIMES DAILY 1 tablet 2 TIMES DAILY (route: oral) Med Classific ation: Endocrine tramadol 50 mg tablet 2023-10 00:00: 00 08-01 23:59 :00 No [id number] 1 tablet 2 TIMES DAILY 1 tablet 2 TIMES DAILY (route: oral) Med Classific ation: Analgesic , Anti-infl ammatory or Antipyret ic Vitamin D3 25 mcg (1,000 unit) capsule 2023-10 00:00: 00 08-01 23:59 :00 No [id number] 1 capsule DAILY 1 capsule DAILY (route: oral) Med Classific ation: Electroly te Balance-N utritiona l Products aspirin 81 mg tablet,claire yed release 2023-10 00:00: 00 Yes [id number] 1 tablet DAILY 1 tablet DAILY (route: oral) Med Classific ation: Hematolog ical Agents betamethaso ne dipropionat e 0.05 % topical ointment 2023-10 00:00: 00 Yes [id number] Per instruc tions DAILY Per instructio ns DAILY (route: topical) Med Classific ation: Dermatolo gical carvedilol 6.25 mg tablet 2023-10 00:00: 00 Yes [id number] 1 tablet 2 TIMES DAILY 1 tablet 2 TIMES DAILY (route: oral) Med Classific ation: Cardiovas cular Therapy Agents clonidine HCl 0.2 mg tablet 2023-10 00:00: 00 Yes [id number] 1 tablet 3 TIMES DAILY 1 tablet 3 TIMES DAILY (route: oral) Med Classific ation: Cardiovas cular Therapy Agents losartan 50 mg tablet 2023-10 00:00: 00 Yes [id number] 1 tablet DAILY 1 tablet DAILY (route: oral) Med Classific ation: Cardiovas cular Therapy Agents naloxone 4 mg/actuatio n nasal spray 2023-10 00:00: 00 Yes [id number] 1 spray DIRECTED 1 spray DIRECTED (route: nasal) Med Classific ation: Antidotes and other Reversal Agents tramadol 50 mg tablet 2023-10 00:00: 00 Yes [id number] 1 tablet EVERY 6 HOURS 1 tablet EVERY 6 HOURS (route: oral) Med Classific ation: Analgesic , Anti-infl ammatory or Antipyret ic methocarbam ol 500 mg tablet 2023-10 00:00: 00 Yes [id number] 1 tablet 3 TIMES DAILY 1 tablet 3 TIMES DAILY (route: oral) Med Classific ation: Locomotor System gabapentin 100 mg capsule 2023-10 00:00: 00 Yes [id number] 1 capsule BEDTIME 1 capsule BEDTIME (route: oral) Med Classific ation: Central Nervous System Agents gentamicin 0.1 % topical ointment 2023-10 00:00: 00 Yes [id number] Per instruc tions DAILY Per instructio ns [...] ON PO ABT TO TREAT. DAUGHTER WILL SIGNAL WIRER TODAY, CLIENT REFUSED TO HAVE SN PROVIDE [...] 2024-08-04 00:00:00 2024-10-02 00:00:00 Outpatient ELISHA ARRIETA [facility] [id number]
== END 2024-09-14 19:51 | disposition home or self-care (01) ==
PROVIDERS: Nurse Practitioner Family; Emergency Provider Emergency Medicine; PCP Internal Medicine
DX: R07.9 Chest pain, unspecified (principal); E11.9 Type 2 diabetes mellitus without complications; I10 Essential (primary) hypertension; E78.5 Hyperlipidemia, unspecified; Z87.891 Personal history of nicotine dependence; Z79.82 Long term (current) use of aspirin; Z79.899 Other long term (current) drug therapy
CPT/HCPCS: 36415; 71046; 80048; 80076; 84484; 85025; 85610; 93005; 99283; 99285

== ENCOUNTER → 2024-09-14 12:30 | Outpatient (BNV) | payer SELFPAY | PROVIDERS: Emergency Provider Emergency Medicine; PCP Internal Medicine; Visit Provider Internal Medicine Cardiovascular Disease | DX: R07.9 Chest pain, unspecified (principal); I45.2 Bifascicular block; R94.31 Abnormal electrocardiogram [ECG] [EKG] | CPT/HCPCS: 93010 ==

== ENCOUNTER 2024-09-26 10:51 | Outpatient (AMB) | payer MEDICARE, SELFPAY ==
[2024-09-26 10:50] VITALS: BMI 39.3
--- NOTE | 2024-09-26 10:50 | MHC.OFFVIS ---
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 Pt states that wounds started by bumping into the bed. 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 She states they originally started as small pinpoint ulcers and have grown significantly since. She has VNA services 3/week for dressing changes. She has been referred to the [facility]; however, the appt has been cancelled several times. She has reached out to [facility] and is working on an appt with them. She was also referred to Dermatology for possible pyoderma gangrenosum, but again, has been having difficulty getting appts. She was recently in the ER and was given abx for possible infection of the the lower extremities. She states she is having some GI upset with the abx. She has been r/o for a DVT. [facility] Medical History Hypertension Wound of lower extremity Venous stasis ulcer Chronic ulcer of left ankle Diabetes Hypertension Abnormal Pap smear of cervix Diabetes mellitus Hypertension Renal calculi Diastasis recti Dyslipidemia associated with type 2 diabetes mellitus Abdominal mass Microalbuminuria Renal calculi Morbid obesity Surgical History Hx of prior ablation treatment Family History Father Seizures Mother Seizures Congenital heart disease in adult Hypotension Maternal Grandfather Leukemia Social History Household Members: Family Housing: House Do you presently have visiting nurse or other home services: No Alcohol intake: current Alcohol intake frequency: holidays/special occasions only Alcohol type: wine Patient Tobacco Use Status: Former Tobacco user Tobacco use type: Cigarette e-Cigarette/Vaping Use: Never Used Second Hand Smoke Exposure: No Substance Use Type: Marijuana service: No Current occupational status: employed Current occupational exposures/hazards: No Cognitive needs: No Hearing needs: No Vision needs: No Review of Systems Const Reports as per HPI and Denies weakness ENT Reports Normal hearing present and Denies dizziness Card Reports as per HPI, Denies chest pain, Denies chest pain at rest, Denies chest pain with activity, Denies dyspnea and Denies dyspnea on exertion Resp Reports as per HPI, Denies cough, Denies dyspnea and Denies dyspnea on exertion GI Reports as per HPI, Denies abdominal pain, Denies nausea and Denies vomiting Musc Denies numbness Skin/Breast Reports as per HPI, Denies erythema and Denies wounds Neuro Reports Normal hearing present, Denies dizziness, Denies numbness, Denies Sensory deficit (Neuro) and Denies weakness Psych Reports no additional complaints Endo Reports no additional complaints Physical Exam Vital Signs: BMI result Body Mass Index 39.3 Const General: healthy appearing and no acute distress Orientation/consciousness: patient oriented x3 HEENT Head: Yes normal to inspection Ears: hearing grossly normal bilaterally Mouth: Normal oral and palatal mucosa present Resp Effort & Inspection: normal respiratory effort and able to speak in complete sentences Auscultation: clear to auscultation bilaterally Cardio Jugular venous distension: no JVD Rate: regular rate Rhythm: regular rhythm Heart sounds: S1 normal heart sound present and S2 normal heart sound present Bruits: no abdominal aortic bruits, no carotid bruits, no femoral bruits and no renal bruits Peripheral pulses: Peripheral pulses 2+ throughout GI Inspection: Yes normal to inspection Palpation (GI): No Abdominal aortic bruit present Skin General skin exam: no rashes or lesions noted Wounds: no wounds Hair: normal Neuro General: patient oriented x3 Cranial nerves: Yes Normal hearing present Cognition (Neuro): normal cognition Gait exam (Neuro): Normal gait present Motor exam (neuro): 5/5 motor strength present throughout Sensory Exam: No Sensory deficit (Neuro) Extrem Other: RLE: significant open ulcer measuring 11.5x9.5x0.5cm on the lower aspect of the leg from the lateral aspect to the medial aspect. We were able to remove a small amount of dry eschar and yellow/green slough from the medial distal aspect of the ulcer with a curette. The pt has increased pain in that area but tolerated the procedure. The wound bed is pink/red. There was no bleeding noted. There was slough and yellow discharge noted on the dressing. LLE: located on the lateral aspect of the leg a smaller open ulcer measuring 5.5x6.5cm, flat. Wound bed is pink/red. Slight yellow slough noted in the distal aspect of the ulcer. No bleeding noted. Slight yellow discharge noted on the dressing. Slight pain with this ulcer. Palpable DP pulses bilaterally. +1 peripheral edema noted bilaterally. General: Yes normal to inspection, Yes full ROM, Yes capillary refill normal and Yes normal gait Assessment & Plan Assessment & Plan (1) PAD (peripheral artery disease): Code(s): I73.9 - Peripheral vascular disease, unspecified Category: Medical Plan: Miladys is presenting today for nonhealing bilateral lower extremity ulcers. She has been having difficulty getting into any wound care clinics and was referred to our office. She is having VNA services at her house 3/week for dressing changes. We had a lengthy discussion that we can do her wound care here, if she is able to make it to us weekly/bi-weekly (depending on how the healing is occurring). We also discussed that I will be ordering an arterial duplex, which has not been done yet. She does have palpable bilateral DP pulses. We were able to remove some dry eschar and slough with a curette. We applied xeroform, 4x4, abd pads, and kerlix wraps. We will be having her come back next week for a wound care check. She states she would like to come back to us for wound care. I have also ordered an arterial duplex. She was placed on abx for infection yesterday; however, there was no indications for an infection with the ulcers. There was no warmth/redness, etc; I discussed with her that I did not think they were infected and she could stop the abx, especially since she was having GI side effects. We will have her return next week. If there are any questions or concerns, please do not hesitate to reach out to us. Orders: Orders US arterial duplex LE BI 1 Week I73.9 - Peripheral vascular disease, unspecified Coding Level of Care Code New Pt Level 4 (21747) Diagnoses PAD (peripheral artery disease) I73.9
--- OUTSIDE RECORDS SUMMARY | 2024-09-26 10:53 | XMS_ITS | Clinical Summary ---
Author Organization Unknown Care Team Providers Care Rental Car Porter Name Role Phone NOELLE RUSSELL MD, REBECA Unavailable Unavailable YI ALEXIS, CLINICAL SEWER HEAD, ELISHA Un available Unavailable FABRICE FARR, DUANE Unavailable Unavailable Payers Payer Name Policy Type Policy Number Effective Date Expira tion Date MEDICARE - [facility] [place] - PDGM [id number] Problems Condition Name Condition Details Condition Category Status Onset Date Resolution Date Last Treatment Date Treating Clinician Comments ENCOUNTER FOR CHANGE OR REMOVAL OF NONSURG WOUND DRESSING Active 2023-10 00:00: 00 TYPE 2 DIABETES W DIABETIC PERIPHERAL ANGIOPATH W/O GANGRENE Active 10-09 00:00: 00 VENOUS INSUFFICIENC Y (CHRONIC) (PERIPHERAL) Active 10-09 00:00: 00 NON-PRS CHRONIC ULCER OTH PRT R LOW LEG W FAT LAYER EXPOSED Active 10-09 00:00: 00 NON-PRS CHRONIC ULCER OTH PRT L LOW LEG W FAT LAYER EXPOSED Active 10-09 00:00: 00 TYPE 2 DIABETES MELLITUS WITH DIABETIC NEUROPATHY, UNSP Active 2023-10 00:00: 00 MORBID (SEVERE) OBESITY DUE TO [...] 00 HYPERTENSIVE URGENCY Active 10-09 00:00: 00 HYPOTENSION, UNSPECIFIED Active 2023-10 00:00: 00 PYODERMA GANGRENOSUM Active 2023-10 00:00: 00 PERSONAL HISTORY OF NICOTINE DEPENDENCE Active 10-09 00:00: 00 Problems related to health literacy Active 10-09 00:00: 00 PRSNL HX OF TIA (TIA), AND CEREB INFRC W/O RESID DEFICITS Active 2023-10 00:00: 00 LONGTERM (CURRENT) USE OF ASPIRIN Active 10-09 00:00: 00 Allergies, Adverse Reactions, [...] 2023-10 00:00: 00 08-01 23:59 :00 No [id number] Per instruc tions TWICE A DAY FOR 7 DAYS Per instructio ns TWICE A DAY FOR 7 DAYS (route: oral) Med Classific ation: Anti-Infe ctive Agents ibuprofen 800 mg tablet 2023-10 00:00: 00 08-01 23:59 :00 No [id number] Per instruc tions EVERY 8 HOURS NEEDED Per instructio ns EVERY 8 HOURS NEEDED (route: oral) Med Classific ation: Analgesic , Anti-infl ammatory or Antipyret ic levofloxaci n 750 mg tablet 2023-10 00:00: 00 08-01 23:59 :00 No [id number] Per instruc tions EVERY DAY FOR 7 DAYS Per instructio ns EVERY DAY FOR 7 DAYS (route: oral) Med Classific ation: Anti-Infe ctive Agents methocarbam ol 500 mg tablet 2023-10 00:00: 00 08-01 23:59 :00 No [id number] Per instruc tions THREE TIMES A DAY NEEDED Per instructio ns THREE TIMES A DAY NEEDED (route: oral) Med Classific ation: Locomotor System clonidine HCl 0.2 mg tablet 2023-10 00:00: 00 08-01 23:59 :00 No [id number] Per instruc tions 3 TIMES A DAY Per instructio ns 3 TIMES A DAY (route: oral) Med Classific ation: Cardiovas cular Therapy Agents potassium chloride ER 20 mEq tablet,exte nded release 2023-10 00:00: 00 08-01 23:59 :00 No [id number] Per instruc tions EVERY DAY Per instructio ns EVERY DAY (route: oral) Med Classific ation: Electroly te Balance-N utritiona l Products Santyl 250 unit/gram topical ointment 07-04 00:00: 00 07-17 00:00 :00 No [id number] Per instruc tions Per instructio ns (route: topical) Med Classific ation: Dermatolo gical clonidine HCl 0.1 mg tablet 06-21 00:00: 00 07-17 00:00 :00 No [id number] Per instruc tions TWICE A DAY FOR 90 DAYS Per instructio ns TWICE A DAY FOR 90 DAYS (route: oral) Med Classific ation: Cardiovas cular Therapy Agents albuterol sulfate HFA 90 mcg/actuati on aerosol inhaler 2023-10 00:00: 00 08-01 23:59 :00 No [id number] 2 puff EVERY 6 HOURS 2 puff EVERY 6 HOURS (route: inhalation ) Med Classific ation: Respirato ry Therapy Agents Aspirin Childrens 81 mg chewable tablet 2023-10 00:00: 00 08-01 23:59 :00 No [id number] 1 tablet DAILY 1 tablet DAILY (route: oral) Med Classific ation: Hematolog ical Agents metformin 500 mg tablet 2023-10 00:00: 00 08-01 23:59 :00 No [id number] 1 tablet 2 TIMES DAILY 1 tablet 2 TIMES DAILY (route: oral) Med Classific ation: Endocrine tramadol 50 mg tablet 2023-10 00:00: 00 08-01 23:59 :00 No [id number] 1 tablet 2 TIMES DAILY 1 tablet 2 TIMES DAILY (route: oral) Med Classific ation: Analgesic , Anti-infl ammatory or Antipyret ic Vitamin D3 25 mcg (1,000 unit) capsule 2023-10 0 00:00: 00 08-01 23:59 :00 No [id number] 1 capsule DAILY 1 capsule DAILY (route: oral) Med Classific ation: Electroly te Balance-N utritiona l Products aspirin 81 mg tablet,claire yed release 2023-10 00:00: 00 Yes [id number] 1 tablet DAILY 1 tablet DAILY (route: oral) Med Classific ation: Hematolog ical Agents betamethaso ne dipropionat e 0.05 % topical ointment 2023-10 00:00: 00 Yes [id number] Per instruc tions DAILY Per instructio ns DAILY (route: topical) Med Classific ation: Dermatolo gical carvedilol 6.25 mg tablet 2023-10 00:00: 00 Yes [id number] 1 tablet 2 TIMES DAILY 1 tablet 2 TIMES DAILY (route: oral) Med Classific ation: Cardiovas cular Therapy Agents clonidine HCl 0.2 mg tablet 2023-10 00:00: 00 Yes [id number] 1 tablet 3 TIMES DAILY 1 tablet 3 TIMES DAILY (route: oral) Med Classific ation: Cardiovas cular Therapy Agents losartan 50 mg tablet 2023-10 00:00: 00 Yes [id number] 1 tablet DAILY 1 tablet DAILY (route: oral) Med Classific ation: Cardiovas cular Therapy Agents naloxone 4 mg/actuatio n nasal spray 2023-10 00:00: 00 Yes [id number] 1 spray DIRECTED 1 spray DIRECTED (route: nasal) Med Classific ation: Antidotes and other Reversal Agents tramadol 50 mg tablet 2023-10 00:00: 00 Yes [id number] 1 tablet EVERY 6 HOURS 1 tablet EVERY 6 HOURS (route: oral) Med Classific ation: Analgesic , Anti-infl ammatory or Antipyret ic methocarbam ol 500 mg tablet 2023-10 00:00: 00 Yes [id number] 1 tablet 3 TIMES DAILY 1 tablet 3 TIMES DAILY (route: oral) Med Classific ation: Locomotor System gabapentin 100 mg capsule 2023-10 00:00: 00 Yes [id number] 1 capsule BEDTIME 1 capsule BEDTIME (route: oral) Med Classific ation: Central Nervous System Agents gentamicin 0.1 % topical ointment 2023-10 00:00: 00 Yes [id number] Per instruc tions DAILY Per instructio ns DAILY (route: topical) Med Classific ation: Dermatolo gical cephalexin 500 mg capsule 2023-10- 00:00: 00 Yes [id number] 500 mg 4 TIMES DAILY 500 mg 4 TIMES DAILY (route: oral) Med Classific ation: Anti-Infe ctive Agents aspirin 81 mg tablet,claire yed release 2023-10 00:00: 00 Yes [id number] 1 tablet DAILY 1 tablet DAILY (route: oral) Med Classific ation: Hematolog ical Agents atorvastati n 80 mg tablet 2023-10 00:00: 00 Yes [id number] 1 tablet BEDTIME 1 tablet BEDTIME (route: oral) Med Classific ation: Cardiovas cular Therapy Agents betamethaso ne dipropionat e 0.05 % topical ointment 2023-10 00:00: 00 Yes [id number] Per instruc tions DAILY Per instructio ns DAILY (route: topical) Med Classific ation: Dermatolo gical carvedilol 6.25 mg tablet 2023-10 00:00: 00 Yes [id number] 1 tablet 2 TIMES DAILY 1 tablet 2 TIMES DAILY (route: oral) Med Classific ation: Cardiovas cular Therapy Agents clonidine HCl 0.2 mg tablet 2023-10 00:00: 00 Yes [id number] 1 tablet 3 TIMES DAILY 1 tablet 3 TIMES DAILY (route: oral) Med Classific ation: Cardiovas cular Therapy Agents clopidogrel 75 mg tablet 2023-10 00:00: 00 Yes [id number] 1 tablet DAILY 1 tablet DAILY (route: oral) Med Classific ation: Hematolog ical Agents gabapentin 300 mg capsule 2023-10 00:00: 00 Yes [id number] 1 capsule 2 TIMES DAILY 1 capsule 2 TIMES DAILY (route: oral) Med Classific ation: Central Nervous System Agents losartan 50 mg tablet 2023-10 00:00: 00 Yes [id number] 0.5 tablet 2 TIMES DAILY 0.5 tablet 2 TIMES DAILY (route: oral) Med Classific ation: Cardiovas cular Therapy Agents methocarbam ol 500 mg tablet 2023-10 00:00: 00 Yes [id number] 1 tablet 3 TIMES DAILY 1 tablet 3 TIMES DAILY (route: oral) Med Classific ation: Locomotor System morphine 15 mg immediate release tablet 2023-10 00:00: 00 Yes [id number] 1 tablet EVERY 12 HOURS 1 tablet EVERY 12 HOURS (route: oral) Med Classific ation: Analgesic , Anti-infl ammatory or Antipyret ic naloxone 4 mg/actuatio n nasal spray 2023-10 00:00: 00 Yes [id number] 1 spray O2 - PRN 1 spray O 2 - PRN (route: nasal) Med Classific ation: Antidotes and other Reversal Agents oxycodone 5 mg tablet 2023-10 00:00: 00 Yes [id number] 1 tablet EVERY 6 HOURS 1 tablet EVERY 6 HOURS (route: oral) Med Classific ation: Analgesic , Anti-infl ammatory or Antipyret ic Vital Signs Vital Name Observation Time Observation Value Commen ts Temperature 2024-09-20 12:37:00.000 98.2 [degF] Temperature 2024-09-13 10:50:00.000 97.9 [degF] Temperature 2024-09-11 [...] Temperature 2024-08-04 15:17:00.000 97.8 [degF] BMI (%) 2024-09-20 12:37:00.000 39 kg/m2 BMI (%) 2024-08-04 15:17:00.000 40 kg/m2 Height 2024-09-20 12:37:00.000 67 [in_us] Height 2024-08-04 15:17:00.000 67 [in_us] Pulse 2024-09-20 12:37:00.000 76 /min Pulse 2024-09-13 10:50:00.000 80 /min Pulse 2024-09-11 [...] 2024-08-04 15:17:00.000 78 /min O2 Saturation (%) 2024-09-20 12:37:00.000 99 % O2 Saturation (%) 2024-09-11 10:10:00.000 96 % [...] O2 Saturation (%) 2024-08-04 15:17:00.000 98 % Pain 2024-09-20 12:37:00.000 3 Pain 2024-09-13 10:50:00.000 7 Pain 2024-09-11 10:10:00.000 7 Pain 2024-09-10 12:13:00.000 6 Pain 2024-09-09 09:59:00.000 4 Pain 2024-09-06 10:34:00.000 6 Pain 2024-09-04 10:35:00.000 5 Pain 2024-09-02 12:39:00.000 5 Pain 2024-09-02 12:25:00.000 0 Pain 2024-08-30 12:01:00.000 5 Pain 2024-08-29 11:22:00.000 9 Pain 2024-08-26 10:03:00.000 6 Pain 2024-08-23 12:12:00.000 3 Pain 2024-08-22 11:10:00.000 6 Pain 2024-08-21 10:52:00.000 5 Pain 2024-08-19 10:24:00.000 4 Pain 2024-08-16 10:17:00.000 4 Pain 2024-08-15 11:05:00.000 6 Pain 2024-08-12 10:40:00.000 5 Pain 2024-08-08 16:59:00.000 6 Pain 2024-08-08 11:02:00.000 5 Pain 2024-08-06 12:34:00.000 6 Pain 2024-08-04 15:17:00.000 7 Respirations 2024-09-20 12:37:00.000 18 /min Respirations 2024-09-13 10:50:00.000 20 /min Respirations 2024-09-11 [...] /min Weight (lbs) 2024-08-04 15:17:00.000 260 [lb_av] Weight (kgs) 2024-09-20 12:37:00.000 114.2 Systolic Blood Pressure 2024-09-20 12:37:00.000 148 mm [Hg] Systolic Blood Pressure 2024-09-13 10:50:00.000 138 mm [...] 15:17:00.000 144 mm [Hg] Diastolic Blood Pressure 2024-09-20 12:37:00.000 90 mm [Hg] Diastolic Blood Pressure 2024-09-13 10:50:00.000 [...] Goal - WOUNDS TO HEA L Goal 2024-09-20 Patient Goal - WOUNDS TO HEA L Goal Provider Goal - A PLAN OF CARE WILL BE ESTABLISHED THAT MEETS PATIENT'S GROUP HOME NEEDS AND INCLUDES PATIENT GOAL FOR [...] Notes Progress Notes <paragraph>[Visit Date: 2023 by MARC TUCKER RN, ADMISSION NURSE]:</paragraph><paragraph>CALLIE 09/20/24 THE PATIENT IS RECEIVING HOMECARE DUE TO: VENOUS STASIS ULCER BILATERAL LOWER EXTREMITIES RECENT HOSPITALIZATION/INPATIENT ADMISSION RELATED TO: UNRESPONSIVENESS, SYNCOPE NEW OR CHANGED MEDICATIONS: MORPHINE, PLAVIX, BETAMETHASONE TOPICAL PATIENT LIVING SITUATION/CAREGIVER STATUS: LIVES WITH SON RECENT FALLS: NONE SUMMARIZE SKILLED NEED: PT NEEDS NURSING CARE FOR WOUND CARE, WOUND ASSESSMENT, VS, MEDICATION EDUCATION ADDITIONAL DISCIPLINES NEEDED OR DECLINED ORDERED SERVICES: NONE MD COMMUNICATION: TO REPORT CALLIE UPCOMING APPOINTMENTS: PCP 09/27/24, VASCULAR 09/26/24, WOUND CLINIC 10/18/24 PAYOR SOURCE: MEDICARE ABNORMAL VITALS: ALL VITALS WITHIN SET PARAMETERS ABNORMAL PHYSICAL ASSESSMENT FINDINGS: ALL SYSTEMS WITHIN NORMAL LIMITS OBSERVATION AND ASSESSMENT PROVIDED: PT ALERT AND ORIENTATED X3, PMH: DIABETES, VENOUS STASIS ULCER TO BLE, HTN, CVA, MORBID OBESITY, STEVE, HYPOTENSION, PYODERMA GRANGRENOSUS PT IS BEING SEEN DUE TO HOSPITAL DISCHARGE R/T HAVING AN EPISODE OF SYNCOPE WHEN PT WAS OUT IN A WOUND CLINIC APPT AND TAKEN TO THE ER. DURING PTS HOSPITAL STAY NEW MEDICATION WAS PRESCRIBED FOR WOUNDS TO LOWER EXTREMITIES, NEW MEDICATION R/T CVA, HYPERTENSION. PT CONTINUES TO NEED ASSISTANCE WITH ADLS AND IADLS DUE TO POOR BALANCE, RISK FOR FALL R/T BILATERAL VENOUS STASIS ELCER TO BLE. POC SN 3X PER WEEK FOR WOUND CARE, PHYSICAL MANAGEMENT, VS, MEDICATION EDUCATION. MEDICATION RECONCILED WITHOUT ISSUES. PCP UPDATED ON CALLIE. EDUCATION: (EDUCATION PROVIDED AT VISIT, HOW EDUCATION WAS RECEIVED, LEVEL OF UNDERSTANDING AND ANY REINFORCEMENT NEEDED AT SUBSEQUENT VISITS, AND RETENTION OF EDUCATION RECEIVED AT PREVIOUS VISIT(S)) INTERVENTIONS NEEDED AT NEXT VISIT: WOUND CARE, VS, MEDICATION EDUCATION ANTICIPATED DISCHARGE PLAN:DC TO CARE OF FAMILY UNDER SUPERVISION OF PHYSICIAN/NPP WHEN GOALS ARE MET, MAXIMUM FUNCTION IS MET, SKILLED CARE NO LONGER REASONABLE/MEDICALLY NECESSARY, PATIENT NO LONGER HOMEBOUND, /OR UPON REQUEST BY THE PHYSICIAN OR PATIENT/CAREGIVER. PATIENT INVOLVED WITH AND IN AGREEMENT TO POC. EMERGENCY PREPAREDNESS REVIEWED, PLAN IN PLACE. PT INSTRUCTED TO CALL [facility] WITH ANY QUESTIONS OR CONCERNS AND/OR CHANGES IN CONDITION, STATE UNDERSTANDING</paragraph> Encounters Start Date/Time End Date/Time Encounter Type Admission Type Attending Clinicians Care Facility Care Department Encounter ID Discharge Date Discharge Status Discharge Condition Discharge Reason Percent Goals Met 2024-08-04 00:00:00 2024-10-02 00:00:00 Outpatient ELISHA ARRIETA [facility] [id number] 59.09
== END 2024-09-26 11:52 | disposition home or self-care (01) ==
LOC: HO.HVS 10:51
PROVIDERS: PCP Internal Medicine; Visit Provider Physician Assistant Surgical
DX: I73.9 Peripheral vascular disease, unspecified (principal)
CPT/HCPCS: 99204

== ENCOUNTER → 2024-09-26 10:51 | Outpatient (BNVA) | payer MEDICARE, SELFPAY | PROVIDERS: PCP Internal Medicine; Visit Provider Physician Assistant Surgical | DX: I73.9 Peripheral vascular disease, unspecified (principal) | CPT/HCPCS: 99202 ==

== ENCOUNTER 2024-09-27 10:59 | Outpatient (AMB) | payer SELFPAY ==
--- NOTE | 2024-09-27 11:03 | A.OFFPC_ITS ---
Vital Signs 09/27/24 11:04 Height 5 ft 7 in Weight 249 lb 2 oz BMI 39.0 BP 130/76 Blood Pressure Location Lt brachial Position Sitting Pulse 82 Pulse Source Pulse Oximeter Pulse Oximetry (%) 96 Oxygen Delivery Method Room Air Intake Visit Reasons: [facility] 09/19 stroke/ f/u ulcer Intake Note: Patient is here for hospital discharge follow up. Patient was discharged from [facility] on 09/19/24. Disability Advocate Required: No Contract Lead: Not Required per policy Accompanied by: Self / Same As Patient Allergies amlodipine Allergy (Intermediate, Verified 09/27/24 11:04) drowsiness, swelling of feet and ankles lisinopril Allergy (Intermediate, Verified 09/27/24 11:04) cough hydralazine Allergy (Verified 09/27/24 11:04) Swelling metformin Adverse Reaction (Verified 09/27/24 11:04) Diarrhea Lisinopril-Hydrochlorothiazide Adverse Reaction (Intermediate, Uncoded 09/27/24 11:04) Leg swelling Metoprolol Tartrate Adverse Reaction (Intermediate, Uncoded 09/27/24 11:04) Leg swelling Medication List - Last Reconciled 09/27/24 by Aliza Clemens PA-C albuterol sulfate 90 mcg/actuation 2 puffs inhalation Q6H PRN aspirin (Adult Aspirin Regimen) 81 mg PO DAILY 90 days atorvastatin 80 mg PO BEDTIME betamethasone dipropionate 0.05% 1 appl topical BID carvedilol 6.25 mg See Protocol PO BID cholecalciferol (vitamin D3) 25 mcg PO DAILY clonidine HCl 0.2 mg PO TID clopidogrel 75 mg PO DAILY compr.stocking,knee,long,large As directed gabapentin 100 mg PO BEDTIME gentamicin 0.1% 1 appl topical DAILY ibuprofen 800 mg PO Q8H PRN 30 days losartan 50 mg See Protocol PO BID methocarbamol 500 mg PO TID PRN morphine 15 mg PO Q8H PRN naloxone 4 mg/actuation intranasal oxycodone 5 mg PO BID PRN potassium chloride ER 20 mEq PO DAILY tramadol 50 mg PO Q8H PRN Tobacco use date assessed: 09/27/24 Fall risk assessment: 1 Fall in past year Last assessed Fall Risk: 09/27/24 Dental Screening Dental Screen Date: 07/25/24 HPI [facility] 09/19 stroke/ f/u ulcer HPI Details 69-year-old female with past medical his tory of diabetes mellitus, hypertension, dyslipidemia, and morbid obesity last seen August in for follow up.? In review of the notes patient was seen by vascular surgery 09/26/2024 arterial duplex was ordered and advised to follow up weekly for wound care.? Patient was seen in [facility] 09/14/2024 for evaluation of chest pain workup was negative suspected symptoms related to GERD and advised to follow up with primary care.? Patient was also seen in [facility] 09/11/2024 and 09/12/2024 for sy ncopal episode workup was negative and discharged home and then seen the following day for cellulitis and treated with antibiotics.? Patient was seen in [facility] 09/19/2024 after a syncopal episode CTA of the head and neck showed several scattered areas of stenosis in several vessels an MRI revealed tiny infarct in the right corner radiata. Evaluated by Neurology and advised dual antiplatelet therapy for 3 months followed by aspirin monotherapy and atorvastatin 80 mg daily and physical therapy. Patient states she has been doing well with the medication adjustments in the hospital. She is seeing vascular surgery on Monday for wound recheck. She has noticed increase in mobility and pain has been more tolerable since having the regular wound care. She denies any further syncopal episodes, chest pains, shortness of breath or headaches. [facility] Medical History Hypertension Wound of lower extremity Venous stasis ulcer Chronic ulcer of left ankle Diabetes Hypertension Abnormal Pap smear of cervix Diabetes mellitus Hypertension Renal calculi Diastasis recti Dyslipidemia associated with type 2 diabetes mellitus Abdominal mass Microalbuminuria Renal calculi Morbid obesity Surgical History Hx of prior ablation treatment Family History Father Seizures Mother Seizures Congenital heart disease in adult Hypotension Maternal Grandfather Leukemia Social History Household Members: Family Housing: House Do you presently have visiting nurse or other home services: No Alcohol intake: current Alcohol intake frequency: holidays/special occasions o nly Alcohol type: wine Patient Tobacco Use Status: Former Tobacco user Tobacco use type: Cigarette e-Cigarette/Vaping Use: Never Used Second Hand Smoke Exposure: No Substance Use Type: Marijuana service: No Current occupational status: employed Current occupational exposures/hazards: No Cognitive needs: No Hearing needs: No Vision needs: No Questionnaire Thrive Questionnaire Date Thrive assessed: 07/13/24 MARLYN-7 AMB Questionnaire MARLYN-7 Date MARLYN - 7 assessed: 07/25/24 Source: Developed by Drs. Cesar Snow, Ela Wiley, Benjamín Chino and colleagues, with an educational rio from [employer]. Review of Systems Const Denies body aches, Denies chills, Denies fever(s), Denies headache(s) and Denies poor appetite Eyes Reports no additional complaints ENT Denies dizziness and Denies headache(s) Card Denies chest pain, Denies syncope, Denies edema, Denies irregular heart rhythm, Denies lightheadedness and Denies dyspnea Resp Denies cough and Denies dyspnea GI Denies abdominal pain, Denies constipation, Denies diarrhea, Denies nausea and Denies vomiting Reports no additional complaints Musc Reports no additional complaints and Denies abnormal gait Skin/Breast Reports system reviewed and no additional complaints, except as documented Neuro Denies abnormal gait, Denies dizziness, Denies syncope and Denies headache(s) Psych Reports no additional complaints Physical exam (Primary Care) Vital Signs: Last Vital Signs Pulse 82 09/27/24 11:04 BP 130/76 09/27/24 11:04 Pulse Ox 96 09/27/24 11:04 Oxygen Delivery Method Room Air 09/27/24 11:04 BMI result Body Mass Index 39.0 Tobacco/Smoking Status: Tobacco use Status Tobacco use date assessed 09/27/24 09/27/24 11:07 Patient Tobacco Use Status Former Tobacco user 09/27/24 11:07 Tobacco use type Cigarette 09/27/24 11:07 e-Cigarette/Vaping Use Never Used 09/27/24 11:07 Thrive Assessment: Date of Thrive Assessment Date Thrive assessed 07/13/24 09/27/24 11:07 Const General: cooperative, healthy appearing, comfortable and no acute distress Orientation/consciousness: patient oriented x3 HENMT Head: Yes normocephalic Ears: hearing grossly normal bilaterally General nose exam: Normal external nose present Eyes General: appearance normal, both eyes and all related structures Conjunctivae: conjunctivae normal Neck Neck: Yes full ROM and Yes no lymphadenopathy Resp Effort & Inspection: normal respiratory effort Auscultation: clear to auscultation bilaterally, no crackles, no rales, no rhonchi and no wheezes Cardio Rate: regular rate Rhythm: regular rhythm Skin General skin exam: no rashes or lesions noted Neuro General: patient oriented x3 Gait exam (Neuro): Normal gait present Extrem General: Yes normal to inspection, Yes full ROM and No edema Psych Affect: normal affect Attitude: cooperative Insight: Good insight present (Psych) Judgement: Good judgement present (Psych) Coding Level of Care Code Est Pt Level 4 (58921) Diagnoses CVA (cerebral vascular accident) I63.9 PAD (peripheral artery disease) I73.9 Pyoderma gangrenosum L88 Essential hypertension I10 Hypertension type: essential hypertension Type 2 diabetes mellitus without complication, without long-term current use of insulin E11.9 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 MRI brain performed 09/17/2024 revealed a tiny acute infarct in the right coronar radiata Code(s): I63.9 - Cerebral infarction, unspecified Category: Medical Plan: Patient found to have small area of infarct seen by Neurology who recommended dual antiplatelet therapy for 3 months followed by aspirin monotherapy indefinitely along with atorvastatin 80 mg. Discussed with patient cholesterol, blood sugar and hypertension are going to be closely monitored managed. Referral placed to Neurology. (2) PAD (peripheral artery disease): Code(s): I73.9 - Peripheral vascular disease, unspecified Category: Medical Plan: Following with vascular surgery and undergoing workup at this time. (3) Pyoderma gangrenosum: Code(s): L88 - Pyoderma gangrenosum Category: Medical Plan: Chronic wounds are being managed by vascular surgery at this time. Still awaiting dermatology appointment. (4) HTN (hypertension): Code(s): I10 - Essential (primary) hypertension Category: Medical Qualifiers: Hypertension type: essential hypertension Qualified Code(s): I10 - Essential (primary) hypertension Plan: Continue on current blood pressure medication. Avoid salt intake and encourage healthy diet and regular exercise. Blood pressure at goal today 130/76 (5) DMII (diabetes mellitus, type 2): Code(s): E11.9 - Type 2 diabetes mellitus without complications Category: Medical Qualifiers: Diabetes mellitus jail insulin use: without jail use Diabetes mellitus complication status: without complication Qualified Code(s): E11.9 - Type 2 diabetes mellitus without complications Plan: Decrease the amount of carbohydrates such as pasta, bread, rice, and potatoes and limit the amount of sweets. Although fruits are generally healthy they should be eaten in moderation as they are still high in sugar. Hemoglobin A1c goal of less than 7%. Ordered for updated A1c (6) Morbid obesity: Code(s): E66.01 - Morbid (severe) obesity due to excess calories Category: Medical Plan: Healthy diet and regular exercise is encouraged. (7) Dyslipidemia associated with type 2 diabetes mellitus: Code(s): E11.69 - Type 2 diabetes mellitus with other specified complication; E78.5 - Hyperlipidemia, unspecified Category: Medical Plan: Avoid foods that are high in cholesterol such as red meat, fried foods, eggs and baked goods. Triglyceride goal of less than 150 and LDL goal of less than 70. Recently started on atorvastatin 80 mg ordered for repeat cholesterol labs to monitor for efficacy. Plan This note was constructed using voice recognition software. While every effort has been made to ensure accuracy and coffee machine technician, still areas may have been included sometimes these areas may affect the content or meeting of the given symptoms. Total time spent caring for the patient today was 30 minutes. This includes time spent before the visit reviewing the chart, time spent during the visit, and time spent after the visit and documentation. Orders: Orders Free T4 (Free Thyroxine) Today Z00.00 - Encounter for general adult medical examination without abnormal findings Lipid Panel Today E78.00 - Pure hypercholesterolemia, unspecified Referrals Neurology Referral I63.9 - Cerebral infarction, unspecified Medications: New blood-glucose meter (Freestyle [employer] meter) As directed 1 ea 0RF blood sugar diagnostic (Freestyle [employer] strips) As directed 50 ea 0RF Discontinued ibuprofen Discontinued Reason: Patient no longer taking 800 mg PO Q8H 30 days PRN 90 tabs 1RF pain
[2024-09-27 11:04] VITALS: BP 130/76; PULSE 82; O2SAT 96; BMI 39.0
--- OUTSIDE RECORDS SUMMARY | 2024-09-27 11:17 | XMS_ITS | Clinical Summary ---
Author Organization Unknown Care Team Providers Care Interior Mechanic Name Role Phone NOELLE RUSSELL MD, REBECA Unavailable Unavailable YI ALEXIS, CLINICAL RESIDENCY PROGRAM COORDINATOR, ELISHA Un available Unavailable FABRICE FARR, DUANE Unavailable Unavailable Payers Payer Name Policy Type Policy Number Effective Date Expira tion Date MEDICARE - [facility] - PDGM [id number] Problems Condition Name Condition Details Condition Category [...] W/O RESID DEFICITS Active 2023-10 00:00: 00 PENITENTIARY (CURRENT) USE OF ASPIRIN Active 10-09 00:00: [...] 2023-10 00:00: 00 08-01 23:59 :00 No [id number] Per instruc tions TWICE A DAY FOR 7 DAYS Per instructio ns TWICE A DAY FOR 7 DAYS (route: oral) Med Classific ation: Anti-Infe ctive Agents ibuprofen 800 mg tablet 2023-10 00:00: 00 08-01 23:59 :00 No [id number] Per instruc tions EVERY 8 HOURS NEEDED Per instructio ns EVERY 8 HOURS NEEDED (route: oral) Med Classific ation: Analgesic , Anti-infl ammatory or Antipyret ic levofloxaci n 750 mg tablet 2023-10 00:00: 00 08-01 23:59 :00 No [id number] Per instruc tions EVERY DAY FOR 7 DAYS Per instructio ns EVERY DAY FOR 7 DAYS (route: oral) Med Classific ation: Anti-Infe ctive Agents methocarbam ol 500 mg tablet 2023-10 00:00: 00 08-01 23:59 :00 No [id number] Per instruc tions THREE TIMES A DAY NEEDED Per instructio ns THREE TIMES A DAY NEEDED (route: oral) Med Classific ation: Locomotor System clonidine HCl 0.2 mg tablet 2023-10 00:00: 00 08-01 23:59 :00 No [id number] Per instruc tions 3 TIMES A DAY Per instructio ns 3 TIMES A DAY (route: oral) Med Classific ation: Cardiovas cular Therapy Agents potassium chloride ER 20 mEq tablet,exte nded release 2023-10 00:00: 00 08-01 23:59 :00 No [id number] Per instruc tions EVERY DAY Per instructio ns EVERY DAY (route: oral) Med Classific ation: Electroly te Balance-N utritiona l Products Santyl 250 unit/gram topical ointment 07-04 00:00: 00 07-17 00:00 :00 No [id number] Per instruc tions Per instructio ns (route: topical) Med Classific ation: Dermatolo gical clonidine HCl 0.1 mg tablet 06-21 00:00: 00 07-17 00:00 :00 No [id number] Per instruc tions TWICE A DAY FOR 90 DAYS Per instructio ns TWICE A DAY FOR 90 DAYS (route: oral) Med Classific ation: Cardiovas cular Therapy Agents albuterol sulfate HFA 90 mcg/actuati on aerosol inhaler 2023-10 00:00: 00 08-01 23:59 :00 No [id number] 2 puff EVERY 6 HOURS 2 puff EVERY 6 HOURS (route: inhalation ) Med Classific ation: Respirato ry Therapy Agents Aspirin Childrens 81 mg chewable tablet 2023-10 00:00: 00 08-01 23:59 :00 No [id number] 1 tablet DAILY 1 tablet DAILY (route: oral) Med Classific ation: Hematolog ical Agents metformin 500 mg tablet 2023-10 00:00: 00 08-01 23:59 :00 No [id number] 1 tablet 2 TIMES DAILY 1 tablet 2 TIMES DAILY (route: oral) Med Classific ation: Endocrine tramadol 50 mg tablet 2023-10 00:00: 00 08-01 23:59 :00 No [id number] 1 tablet 2 TIMES DAILY 1 tablet 2 TIMES DAILY (route: oral) Med Classific ation: Analgesic , Anti-infl ammatory or Antipyret ic Vitamin D3 25 mcg (1,000 unit) capsule 2023-10 0 00:00: 00 08-01 23:59 :00 No [id number] 1 capsule DAILY 1 capsule DAILY (route: oral) Med Classific ation: Electroly te Balance-N utritiona l Products aspirin 81 mg tablet,claire yed release 2023-10 00:00: 00 Yes [id number] 1 tablet DAILY 1 tablet DAILY (route: oral) Med Classific ation: Hematolog ical Agents betamethaso ne dipropionat e 0.05 % topical ointment 2023-10 00:00: 00 Yes [id number] Per instruc tions DAILY Per instructio ns DAILY (route: topical) Med Classific ation: Dermatolo gical carvedilol 6.25 mg tablet 2023-10 00:00: 00 Yes [id number] 1 tablet 2 TIMES DAILY 1 tablet 2 TIMES DAILY (route: oral) Med Classific ation: Cardiovas cular Therapy Agents clonidine HCl 0.2 mg tablet 2023-10 00:00: 00 Yes [id number] 1 tablet 3 TIMES DAILY 1 tablet 3 TIMES DAILY (route: oral) Med Classific ation: Cardiovas cular Therapy Agents losartan 50 mg tablet 2023-10 00:00: 00 Yes [id number] 1 tablet DAILY 1 tablet DAILY (route: oral) Med Classific ation: Cardiovas cular Therapy Agents naloxone 4 mg/actuatio n nasal spray 2023-10 00:00: 00 Yes [id number] 1 spray DIRECTED 1 spray DIRECTED (route: nasal) Med Classific ation: Antidotes and other Reversal Agents tramadol 50 mg tablet 2023-10 00:00: 00 Yes [id number] 1 tablet EVERY 6 HOURS 1 tablet EVERY 6 HOURS (route: oral) Med Classific ation: Analgesic , Anti-infl ammatory or Antipyret ic methocarbam ol 500 mg tablet 2023-10 00:00: 00 Yes [id number] 1 tablet 3 TIMES DAILY 1 tablet 3 TIMES DAILY (route: oral) Med Classific ation: Locomotor System gabapentin 100 mg capsule 2023-10 00:00: 00 Yes [id number] 1 capsule BEDTIME 1 capsule BEDTIME (route: oral) Med Classific ation: Central Nervous System Agents gentamicin 0.1 % topical ointment 2023-10 00:00: 00 Yes [id number] Per instruc tions DAILY Per instructio ns DAILY (route: topical) Med Classific ation: Dermatolo gical cephalexin 500 mg capsule 2023-10- 00:00: 00 Yes [id number] 500 mg 4 TIMES DAILY 500 mg 4 TIMES DAILY (route: oral) Med Classific ation: Anti-Infe ctive Agents aspirin 81 mg tablet,claire yed release 2023-10 00:00: 00 Yes [id number] 1 tablet DAILY 1 tablet DAILY (route: oral) Med Classific ation: Hematolog ical Agents atorvastati n 80 mg tablet 2023-10 00:00: 00 Yes [id number] 1 tablet BEDTIME 1 tablet BEDTIME (route: oral) Med Classific ation: Cardiovas cular Therapy Agents betamethaso ne dipropionat e 0.05 % topical ointment 2023-10 00:00: 00 Yes [id number] Per instruc tions DAILY Per instructio ns DAILY (route: topical) Med Classific ation: Dermatolo gical carvedilol 6.25 mg tablet 2023-10 00:00: 00 Yes [id number] 1 tablet 2 TIMES DAILY 1 tablet 2 TIMES DAILY (route: oral) Med Classific ation: Cardiovas cular Therapy Agents clonidine HCl 0.2 mg tablet 2023-10 00:00: 00 Yes [id number] 1 tablet 3 TIMES DAILY 1 tablet 3 TIMES DAILY (route: oral) Med Classific ation: Cardiovas cular Therapy Agents clopidogrel 75 mg tablet 2023-10 00:00: 00 Yes [id number] 1 tablet DAILY 1 tablet DAILY (route: oral) Med Classific ation: Hematolog ical Agents gabapentin 300 mg capsule 2023-10 00:00: 00 Yes [id number] 1 capsule 2 TIMES DAILY 1 capsule 2 TIMES DAILY (route: oral) Med Classific ation: Central Nervous System Agents losartan 50 mg tablet 2023-10 00:00: 00 Yes [id number] 0.5 tablet 2 TIMES DAILY 0.5 tablet 2 TIMES DAILY (route: oral) Med Classific ation: Cardiovas cular Therapy Agents methocarbam ol 500 mg tablet 2023-10 00:00: 00 Yes [id number] 1 tablet 3 TIMES DAILY 1 tablet 3 TIMES DAILY (route: oral) Med Classific ation: Locomotor System morphine 15 mg immediate release tablet 2023-10 00:00: 00 Yes [id number] 1 tablet EVERY 12 HOURS 1 tablet EVERY 12 HOURS (route: oral) Med Classific ation: Analgesic , Anti-infl ammatory or Antipyret ic naloxone 4 mg/actuatio n nasal spray 2023-10 00:00: 00 Yes [id number] 1 spray O2 - PRN 1 spray O 2 - PRN (route: nasal) Med Classific ation: Antidotes and other Reversal Agents oxycodone 5 mg tablet 2023-10 00:00: 00 Yes [id number] 1 tablet EVERY 6 HOURS 1 tablet [...] TO MANAGE BY END OF CERTIFICATION PERIOD. Encounters Start Date/Time End Date/Time Encounter Type Admission Type Attending [facility] Care Department Encounter ID Discharge Date Discharge Status Discharge Condition Discharge Reason Percent Goals Met 2024-08-04 00:00:00 2024-10-02 00:00:00 Outpatient ELISHA ARRIETA [facility] [id number]
--- OUTSIDE RECORDS SUMMARY | 2024-09-27 11:17 | XMS_ITS | Clinical Summary ---
Author Organization Unknown Care Team Providers Care Group Program Manager Name Role Phone NOELLE RUSSELL MD, REBECA Unavailable Unavailable YI ALEXIS, CLINICAL MANAGER ENTERPRISE, ELISHA Un available Unavailable FABRICE FARR, DUANE Unavailable Unavailable Payers Payer Name Policy Type Policy Number Effective Date Expira tion Date MEDICARE - [facility] - PDGM [id number] Problems Condition Name Condition Details Condition Category [...] W/O RESID DEFICITS Active 2023-10 00:00: 00 [facility] (CURRENT) USE OF ASPIRIN Active 10-09 00:00: [...] 2023-10 00:00: 00 08-01 23:59 :00 No [id number] Per instruc tions TWICE A DAY FOR 7 DAYS Per instructio ns TWICE A DAY FOR 7 DAYS (route: oral) Med Classific ation: Anti-Infe ctive Agents ibuprofen 800 mg tablet 2023-10 00:00: 00 08-01 23:59 :00 No [id number] Per instruc tions EVERY 8 HOURS NEEDED Per instructio ns EVERY 8 HOURS NEEDED (route: oral) Med Classific ation: Analgesic , Anti-infl ammatory or Antipyret ic levofloxaci n 750 mg tablet 2023-10 00:00: 00 08-01 23:59 :00 No [id number] Per instruc tions EVERY DAY FOR 7 DAYS Per instructio ns EVERY DAY FOR 7 DAYS (route: oral) Med Classific ation: Anti-Infe ctive Agents methocarbam ol 500 mg tablet 2023-10 00:00: 00 08-01 23:59 :00 No [id number] Per instruc tions THREE TIMES A DAY NEEDED Per instructio ns THREE TIMES A DAY NEEDED (route: oral) Med Classific ation: Locomotor System clonidine HCl 0.2 mg tablet 2023-10 00:00: 00 08-01 23:59 :00 No [id number] Per instruc tions 3 TIMES A DAY Per instructio ns 3 TIMES A DAY (route: oral) Med Classific ation: Cardiovas cular Therapy Agents potassium chloride ER 20 mEq tablet,exte nded release 2023-10 00:00: 00 08-01 23:59 :00 No [id number] Per instruc tions EVERY DAY Per instructio ns EVERY DAY (route: oral) Med Classific ation: Electroly te Balance-N utritiona l Products Santyl 250 unit/gram topical ointment 07-04 00:00: 00 07-17 00:00 :00 No [id number] Per instruc tions Per instructio ns (route: topical) Med Classific ation: Dermatolo gical clonidine HCl 0.1 mg tablet 06-21 00:00: 00 07-17 00:00 :00 No [id number] Per instruc tions TWICE A DAY FOR 90 DAYS Per instructio ns TWICE A DAY FOR 90 DAYS (route: oral) Med Classific ation: Cardiovas cular Therapy Agents albuterol sulfate HFA 90 mcg/actuati on aerosol inhaler 2023-10 00:00: 00 08-01 23:59 :00 No [id number] 2 puff EVERY 6 HOURS 2 puff EVERY 6 HOURS (route: inhalation ) Med Classific ation: Respirato ry Therapy Agents Aspirin Childrens 81 mg chewable tablet 2023-10 00:00: 00 08-01 23:59 :00 No [id number] 1 tablet DAILY 1 tablet DAILY (route: oral) Med Classific ation: Hematolog ical Agents metformin 500 mg tablet 2023-10 00:00: 00 08-01 23:59 :00 No [id number] 1 tablet 2 TIMES DAILY 1 tablet 2 TIMES DAILY (route: oral) Med Classific ation: Endocrine tramadol 50 mg tablet 2023-10 00:00: 00 08-01 23:59 :00 No [id number] 1 tablet 2 TIMES DAILY 1 tablet 2 TIMES DAILY (route: oral) Med Classific ation: Analgesic , Anti-infl ammatory or Antipyret ic Vitamin D3 25 mcg (1,000 unit) capsule 2023-10 0 00:00: 00 08-01 23:59 :00 No [id number] 1 capsule DAILY 1 capsule DAILY (route: oral) Med Classific ation: Electroly te Balance-N utritiona l Products aspirin 81 mg tablet,claire yed release 2023-10 00:00: 00 Yes [id number] 1 tablet DAILY 1 tablet DAILY (route: oral) Med Classific ation: Hematolog ical Agents betamethaso ne dipropionat e 0.05 % topical ointment 2023-10 00:00: 00 Yes [id number] Per instruc tions DAILY Per instructio ns DAILY (route: topical) Med Classific ation: Dermatolo gical carvedilol 6.25 mg tablet 2023-10 00:00: 00 Yes [id number] 1 tablet 2 TIMES DAILY 1 tablet 2 TIMES DAILY (route: oral) Med Classific ation: Cardiovas cular Therapy Agents clonidine HCl 0.2 mg tablet 2023-10 00:00: 00 Yes [id number] 1 tablet 3 TIMES DAILY 1 tablet 3 TIMES DAILY (route: oral) Med Classific ation: Cardiovas cular Therapy Agents losartan 50 mg tablet 2023-10 00:00: 00 Yes [id number] 1 tablet DAILY 1 tablet DAILY (route: oral) Med Classific ation: Cardiovas cular Therapy Agents naloxone 4 mg/actuatio n nasal spray 2023-10 00:00: 00 Yes [id number] 1 spray DIRECTED 1 spray DIRECTED (route: nasal) Med Classific ation: Antidotes and other Reversal Agents tramadol 50 mg tablet 2023-10 00:00: 00 Yes [id number] 1 tablet EVERY 6 HOURS 1 tablet EVERY 6 HOURS (route: oral) Med Classific ation: Analgesic , Anti-infl ammatory or Antipyret ic methocarbam ol 500 mg tablet 2023-10 00:00: 00 Yes [id number] 1 tablet 3 TIMES DAILY 1 tablet 3 TIMES DAILY (route: oral) Med Classific ation: Locomotor System gabapentin 100 mg capsule 2023-10 00:00: 00 Yes [id number] 1 capsule BEDTIME 1 capsule BEDTIME (route: oral) Med Classific ation: Central Nervous System Agents gentamicin 0.1 % topical ointment 2023-10 00:00: 00 Yes [id number] Per instruc tions DAILY Per instructio ns DAILY (route: topical) Med Classific ation: Dermatolo gical cephalexin 500 mg capsule 2023-10- 00:00: 00 Yes [id number] 500 mg 4 TIMES DAILY 500 mg 4 TIMES DAILY (route: oral) Med Classific ation: Anti-Infe ctive Agents aspirin 81 mg tablet,claire yed release 2023-10 00:00: 00 Yes [id number] 1 tablet DAILY 1 tablet DAILY (route: oral) Med Classific ation: Hematolog ical Agents atorvastati n 80 mg tablet 2023-10 00:00: 00 Yes [id number] 1 tablet BEDTIME 1 tablet BEDTIME (route: oral) Med Classific ation: Cardiovas cular Therapy Agents betamethaso ne dipropionat e 0.05 % topical ointment 2023-10 00:00: 00 Yes [id number] Per instruc tions DAILY Per instructio ns DAILY (route: topical) Med Classific ation: Dermatolo gical carvedilol 6.25 mg tablet 2023-10 00:00: 00 Yes [id number] 1 tablet 2 TIMES DAILY 1 tablet 2 TIMES DAILY (route: oral) Med Classific ation: Cardiovas cular Therapy Agents clonidine HCl 0.2 mg tablet 2023-10 00:00: 00 Yes [id number] 1 tablet 3 TIMES DAILY 1 tablet 3 TIMES DAILY (route: oral) Med Classific ation: Cardiovas cular Therapy Agents clopidogrel 75 mg tablet 2023-10 00:00: 00 Yes [id number] 1 tablet DAILY 1 tablet DAILY (route: oral) Med Classific ation: Hematolog ical Agents gabapentin 300 mg capsule 2023-10 00:00: 00 Yes [id number] 1 capsule 2 TIMES DAILY 1 capsule 2 TIMES DAILY (route: oral) Med Classific ation: Central Nervous System Agents losartan 50 mg tablet 2023-10 00:00: 00 Yes [id number] 0.5 tablet 2 TIMES DAILY 0.5 tablet 2 TIMES DAILY (route: oral) Med Classific ation: Cardiovas cular Therapy Agents methocarbam ol 500 mg tablet 2023-10 00:00: 00 Yes [id number] 1 tablet 3 TIMES DAILY 1 tablet 3 TIMES DAILY (route: oral) Med Classific ation: Locomotor System morphine 15 mg immediate release tablet 2023-10 00:00: 00 Yes [id number] 1 tablet EVERY 12 HOURS 1 tablet EVERY 12 HOURS (route: oral) Med Classific ation: Analgesic , Anti-infl ammatory or Antipyret ic naloxone 4 mg/actuatio n nasal spray 2023-10 00:00: 00 Yes [id number] 1 spray O2 - PRN 1 spray O 2 - PRN (route: nasal) Med Classific ation: Antidotes and other Reversal Agents oxycodone 5 mg tablet 2023-10 00:00: 00 Yes [id number] 1 tablet EVERY 6 HOURS 1 tablet [...] CARE WILL BE ESTABLISHED THAT MEETS PATIENT'S CORRECTION NEEDS AND INCLUDES PATIENT GOAL FOR HOME [...] End Date/Time Encounter Type Admission Type Attending [facility] Care Department Encounter ID Discharge Date Discharge Status Discharge Condition Discharge Reason Percent Goals Met 2024-08-04 00:00:00 2024-10-02 00:00:00 Outpatient ELISHA ARRIETA [facility]OPER [facility] [id number] 59.09
== END 2024-09-27 11:49 | disposition home or self-care (01) ==
PROVIDERS: PCP Internal Medicine
DX: I73.9 Peripheral vascular disease, unspecified (principal); L88 Pyoderma gangrenosum; E66.01 Morbid (severe) obesity due to excess calories; Z68.39 Body mass index [BMI] 39.0-39.9, adult; E11.69 Type 2 diabetes mellitus with other specified complication; Z86.73 Personal history of transient ischemic attack (TIA), and cerebral infarction without residual deficits; I10 Essential (primary) hypertension; E78.5 Hyperlipidemia, unspecified

== ENCOUNTER 2024-09-27 10:59 | Outpatient (REF) | payer SELFPAY ==
[2024-09-27 14:01] LABS: Cholesterol 130 mg/dL (<200); HDL Cholesterol 44 mg/dL (>40); LDL Cholesterol Calculated 69 mg/dL (<100); Triglycerides 85 mg/dL (<150)
[2024-09-27 14:15] LABS: Free T4 (Free Thyroxine) 0.92 ng/dL (0.71-1.85)
== END 2024-09-27 11:00 | disposition home or self-care (01) ==
LOC: HO.LAB 10:59
PROVIDERS: PCP Internal Medicine
DX: Z00.00 Encounter for general adult medical examination without abnormal findings (principal); E78.00 Pure hypercholesterolemia, unspecified; I63.9 Cerebral infarction, unspecified; I73.9 Peripheral vascular disease, unspecified; I10 Essential (primary) hypertension; E66.01 Morbid (severe) obesity due to excess calories; E11.65 Type 2 diabetes mellitus with hyperglycemia
CPT/HCPCS: 36415; 80061; 84439; 99212

== ENCOUNTER → 2024-10-01 11:08 | Outpatient (BNVA) | payer MEDICARE, SELFPAY | PROVIDERS: PCP Internal Medicine; Visit Provider Physician Assistant Surgical | DX: I73.9 Peripheral vascular disease, unspecified (principal) | CPT/HCPCS: 99212 ==

== ENCOUNTER → 2024-10-01 11:08 | Outpatient (AMB) | payer MEDICARE, SELFPAY ==
--- NOTE | 2024-10-01 11:11 | MHC.OFFVIS ---
Intake Visit Reasons: wound check follow up Intake Note: Patient presents for wound check follow up. Visiting nurse changed dressing on 09/30/24. Drainage upon removing dressing. Accompanied by: Son Allergies amlodipine Allergy (Intermediate, Verified 10/01/24 11:20) drowsiness, swelling of feet and ankles lisinopril Allergy (Intermediate, Verified 10/01/24 11:20) cough hydralazine Allergy (Verified 10/01/24 11:20) Swelling metformin Adverse Reaction (Verified 10/01/24 11:20) Diarrhea Lisinopril-Hydrochlorothiazide Adverse Reaction (Intermediate, Uncoded 09/27/24 11:04) Leg swelling Metoprolol Tartrate Adverse Reaction (Intermediate, Uncoded 09/27/24 11:04) Leg swelling HPI HPI wound check follow up: Details: Miladys is presenting today for a follow up wound care check. The pt has been having VNA services at home to help with dressing changes and her family has been very involved as well. She continues on Gabapentin 300mg bid. She has an appt for her arterial duplex US on 10/15. She continues with pain with the wounds, particularly on the right lower extremity. She states she thinks the left lower extremity one is improving. [facility] Medical History Hypertension Wound of lower extremity Venous stasis ulcer Chronic ulcer of left ankle Diabetes Hypertension Abnormal Pap smear of cervix Diabetes mellitus Hypertension Renal calculi Diastasis recti Dyslipidemia associated with type 2 diabetes mellitus Abdominal mass Microalbuminuria Renal calculi Morbid obesity Surgical History Hx of prior ablation treatment Family History Father Seizures Mother Seizures Congenital heart disease in adult Hypotension Maternal Grandfather Leukemia Social History Household Members: Family Housing: House Do you presently have visiting nurse or other home services: No Alcohol intake: current Alcohol intake frequency: holidays/special occasions only Alcohol type: wine Patient Tobacco Use Status: Former Tobacco user Tobacco use type: Cigarette e-Cigarette/Vaping Use: Never Used Second Hand Smoke Exposure: No Substance Use Type: Marijuana service: No Current occupational status: employed Current occupational exposures/hazards: No Cognitive needs: No Hearing needs: No Vision needs: No Review of Systems Const Reports as per HPI and Denies weakness ENT Reports Normal hearing present and Denies dizziness Card Reports as per HPI, Denies chest pain, Denies chest pain at rest, Denies chest pain with activity, Denies dyspnea and Denies dyspnea on exertion Resp Reports as per HPI, Denies cough, Denies dyspnea and Denies dyspnea on exertion GI Reports as per HPI, Denies abdominal pain, Denies nausea and Denies vomiting Musc Denies numbness Skin/Breast Reports as per HPI, Denies erythema and Denies wounds Neuro Reports Normal hearing present, Denies dizziness, Denies numbness, Denies Sensory deficit (Neuro) and Denies weakness Psych Reports no additional complaints Endo Reports no additional complaints Physical Exam Const General: healthy appearing and no acute distress Orientation/consciousness: patient oriented x3 HEENT Head: Yes normal to inspection Ears: hearing grossly normal bilaterally Mouth: Normal oral and palatal mucosa present Resp Effort & Inspection: normal respiratory effort and able to speak in complete sentences Auscultation: clear to auscultation bilaterally Cardio Jugular venous distension: no JVD Rate: regular rate Rhythm: regular rhythm Heart sounds: S1 normal heart sound present and S2 normal heart sound present Bruits: no abdominal aortic bruits, no carotid bruits, no femoral bruits and no renal bruits Peripheral pulses: Peripheral pulses 2+ throughout GI Inspection: Yes normal to inspection Palpation (GI): No Abdominal aortic bruit present Skin General skin exam: no rashes or lesions noted Wounds: no wounds Hair: normal Neuro General: patient oriented x3 Cranial nerves: Yes Normal hearing present Cognition (Neuro): normal cognition Gait exam (Neuro): Normal gait present Motor exam (neuro): 5/5 motor strength present throughout Sensory Exam: No Sensory deficit (Neuro) Extrem Other: RLE: significant open ulcer measuring 11.5x9.5x0.5cm (no change in size) on the lower aspect of the leg from the lateral aspect to the medial aspect. We were able to remove a very small amount of dry eschar and yellow/green slough from the medial distal aspect of the ulcer with forceps and scissors; all eschar is gone, there is very minimal slough. The pt has increased pain in that area but tolerated the procedure. The wound bed is pink/red. There was no bleeding noted. There was slough and yellow discharge noted on the dressing. LLE: located on the lateral aspect of the leg a smaller open ulcer measuring 5.5x6.5cm (no change in size), flat. Wound bed is pink/red. No slough noted today. No bleeding noted. Slight yellow discharge noted on the dressing. Slight pain with this ulcer. Palpable DP pulses bilaterally. +1 peripheral edema noted bilaterally. General: Yes normal to inspection, Yes full ROM, Yes capillary refill normal and Yes normal gait Assessment & Plan Assessment & Plan (1) PAD (peripheral artery disease): Code(s): I73.9 - Peripheral vascular disease, unspecified Category: Medical Plan: Miladys is presenting today for a one week follow up for wound care checks. She is having VNA services at home a couple of days a week and her family is assisting with dressing changes as well. The pt states the left lower extremity wound is getting better and the right one is the same. She does endorse continued pain, worse with the right lower extremity wound and is currently on Gabapentin 300mg bid; we discussed that she should reach out to her PCP and request an increase in dosage, especially with the increased pain with dressing changes. Her US appt is on 10/15 and we will follow up with her on 10/17 for review of the US as well as wound care check. We discussed that she can reach out to us at any point if there are any changes in the wounds or she has any concerns. We will follow up with her in 2 weeks. Coding Level of Care Code Est Pt Level 4 (47926) Diagnoses PAD (peripheral artery disease) I73.9
== END ==
PROVIDERS: PCP Internal Medicine; Visit Provider Physician Assistant Surgical
DX: I73.9 Peripheral vascular disease, unspecified (principal)
CPT/HCPCS: 99214

== ENCOUNTER 2024-10-15 15:14 | Outpatient (REF) | payer MEDICARE, SELFPAY ==
--- NOTE | ~2024-10-15 | US_ITS ---
CLINICAL HISTORY: I73.9 - Peripheral vascular disease, unspecified Arterial duplex ultrasound bilateral lower extremity Comparison: None Findings: Continuous, pulsatile flow with normal waveforms from common femoral arteries through the posterior tibial and dorsalis pedis arteries. No focal stenosis, aneurysm or occlusion identified. Velocities are within normal range. TRE on the right is 1.18 and on the left 1.18. IMPRESSION: 1. Normal bilateral lower extremity arterial duplex. This document has been electronically signed by: Justice Gallegos MD on 10/18/2024 08:04:20
--- OUTSIDE RECORDS SUMMARY | 2024-10-15 19:14 | XMS_ITS | Clinical Summary ---
Author Organization Unknown Care Team Providers Care Chronograph Operator Name Role Phone NOELLE RUSSELL MD, REBECA Unavailable Unavailable YI ALEXIS, CLINICAL POLISH MAKER, ELISHA Un available Unavailable FABRICE FARR, DUANE Unavailable Unavailable Payers Payer Name Policy Type Policy Number Effective Date Expira tion Date MEDICARE - [facility]GM [id number] Problems Condition Name Condition Details Condition Category Status Onset Date Resolution Date Last Treatment Date Treating Clinician Comments ENCOUNTER FOR CHANGE OR REMOVAL OF NONSURG WOUND DRESSING Active 10-09 00:00: 00 TYPE 2 DIABETES [...] DIABETIC NEUROPATHY, UNSP Active 10-09 00:00: 00 MORBID (SEVERE) OBESITY DUE TO EXCESS CALORIES Active 10-09 00:00: 00 BODY MASS INDEX [BMI] 39.0-39.9, ADULT Active 10-09 00:00: 00 TYPE 2 DIABETES MELLITUS WITH OTHER SPECIFIED COMPLICATION Active 10-09 00:00: 00 HYPERLIPIDEM IA, UNSPECIFIED Active 10-09 00:00: 00 ESSENTIAL (PRIMARY) HYPERTENSION Active 10-09 00:00: 00 OBSTRUCTIVE SLEEP APNEA (ADULT) (PEDIATRIC) Active 10-09 00:00: 00 HYPOTENSION, UNSPECIFIED Active 10-09 00:00: 00 PYODERMA GANGRENOSUM Active 10-09 00:00: 00 PERSONAL HISTORY OF NICOTINE DEPENDENCE Active 10-09 00:00: 00 Problems related to health literacy Active 10-09 00:00: 00 PRSNL HX OF TIA (TIA), AND CEREB INFRC W/O RESID 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-09 00:00: 00 SENIOR CARE (CURRENT) USE OF ASPIRIN Active 10-09 00:00: 00 Allergies, Adverse Reactions, Alerts Allergy Name Allergy Type Status Severity Reaction(s) Onset Date Inactive Date Treating Clinician Comments METFORMIN Propensity to adverse reactions Active 2023-10 14:51: 44 LISINOPRIL Propensity to adverse reactions Active 2023-10 14:51: 38 Medications Ordered Medication Name Filled Medication Name Start Date Stop Date Current Medication? Ordering Clinician Indication Dosage Frequency Signature (SIG) Comments Components cefadroxil 500 mg capsule 2023-10 00:00: 00 08-01 23:59 :00 No [id number] Per instruc tions TWICE A DAY FOR 7 DAYS Per instructio ns TWICE A DAY FOR 7 DAYS (route: oral) Med Classific ation: Anti-Infe ctive Agents ibuprofen 800 mg tablet 2023-10 00:00: 00 08-01 23:59 :00 No [id number] Per instruc tions EVERY 8 HOURS NEEDED Per instructio ns EVERY 8 HOURS NEEDED (route: oral) Med Classific ation: Analgesic , Anti-infl ammatory or Antipyret ic levofloxaci n 750 mg tablet 2023-10 00:00: 00 08-01 23:59 :00 No [id number] Per instruc tions EVERY DAY FOR 7 DAYS Per instructio ns EVERY DAY FOR 7 DAYS (route: oral) Med Classific ation: Anti-Infe ctive Agents methocarbam ol 500 mg tablet 2023-10 00:00: 00 08-01 23:59 :00 No [id number] Per instruc tions THREE TIMES A DAY NEEDED Per instructio ns THREE TIMES A DAY NEEDED (route: oral) Med Classific ation: Locomotor System clonidine HCl 0.2 mg tablet 2023-10 0 00:00: 00 08-01 23:59 :00 No [id number] Per instruc tions 3 TIMES A DAY Per instructio ns 3 TIMES A DAY (route: oral) Med Classific ation: Cardiovas cular Therapy Agents potassium chloride ER 20 mEq tablet,exte nded release 2023-10 0 00:00: 00 08-01 23:59 :00 No [id number] Per instruc tions EVERY DAY Per instructio ns EVERY DAY (route: oral) Med Classific ation: Electroly te Balance-N utritiona l Products Santyl 250 unit/gram topical ointment 07-04 00:00: 00 07-17 00:00 :00 No [id number] Per instruc tions Per instructio ns (route: topical) Med Classific ation: Dermatolo gical clonidine HCl 0.1 mg tablet 06-21 00:00: 00 07-17 00:00 :00 No [id number] Per instruc tions TWICE A DAY FOR 90 DAYS Per instructio ns TWICE A DAY FOR 90 DAYS (route: oral) Med Classific ation: Cardiovas cular Therapy Agents albuterol sulfate HFA 90 mcg/actuati on aerosol inhaler 2023-10 00:00: 00 08-01 23:59 :00 No [id number] 2 puff EVERY 6 HOURS 2 puff EVERY 6 HOURS (route: inhalation ) Med Classific ation: Respirato ry Therapy Agents Aspirin Childrens 81 mg chewable tablet 2023-10 00:00: 00 08-01 23:59 :00 No [id number] 1 tablet DAILY 1 tablet DAILY (route: oral) Med Classific ation: Hematolog ical Agents metformin 500 mg tablet 2023-10 00:00: 00 08-01 23:59 :00 No [id number] 1 tablet 2 TIMES DAILY 1 tablet 2 TIMES DAILY (route: oral) Med Classific ation: Endocrine tramadol 50 mg tablet 2023-10 00:00: 00 08-01 23:59 :00 No [id number] 1 tablet 2 TIMES DAILY 1 tablet 2 TIMES DAILY (route: oral) Med Classific ation: Analgesic , Anti-infl ammatory or Antipyret ic Vitamin D3 25 mcg (1,000 unit) capsule 2023-10 0 00:00: 00 08-01 23:59 :00 No [id number] 1 capsule DAILY 1 capsule DAILY (route: oral) Med Classific ation: Electroly te Balance-N utritiona l Products aspirin 81 mg tablet,claire yed release 2023-10 00:00: 00 Yes [id number] 1 tablet DAILY 1 tablet DAILY (route: oral) Med Classific ation: Hematolog ical Agents betamethaso ne dipropionat e 0.05 % topical ointment 2023-10 00:00: 00 Yes [id number] Per instruc tions DAILY Per instructio ns DAILY (route: topical) Med Classific ation: Dermatolo gical carvedilol 6.25 mg tablet 2023-10 00:00: 00 Yes [id number] 1 tablet 2 TIMES DAILY 1 tablet 2 TIMES DAILY (route: oral) Med Classific ation: Cardiovas cular Therapy Agents clonidine HCl 0.2 mg tablet 2023-10 00:00: 00 Yes [id number] 1 tablet 3 TIMES DAILY 1 tablet 3 TIMES DAILY (route: oral) Med Classific ation: Cardiovas cular Therapy Agents losartan 50 mg tablet 2023-10 00:00: 00 Yes [id number] 1 tablet DAILY 1 tablet DAILY (route: oral) Med Classific ation: Cardiovas cular Therapy Agents naloxone 4 mg/actuatio n nasal spray 2023-10 00:00: 00 Yes [id number] 1 spray DIRECTED 1 spray DIRECTED (route: nasal) Med Classific ation: Antidotes and other Reversal Agents tramadol 50 mg tablet 2023-10 00:00: 00 Yes [id number] 1 tablet EVERY 6 HOURS 1 tablet EVERY 6 HOURS (route: oral) Med Classific ation: Analgesic , Anti-infl ammatory or Antipyret ic methocarbam ol 500 mg tablet 2023-10 00:00: 00 Yes [id number] 1 tablet 3 TIMES DAILY 1 tablet 3 TIMES DAILY (route: oral) Med Classific ation: Locomotor System gabapentin 100 mg capsule 2023-10- 00:00: 00 Yes [id number] 1 capsule BEDTIME 1 capsule BEDTIME (route: oral) Med Classific ation: Central Nervous System Agents gentamicin 0.1 % topical ointment 2023-10- 00:00: 00 Yes [id number] Per instruc tions DAILY Per instructio ns DAILY (route: topical) Med Classific ation: Dermatolo gical cephalexin 500 mg capsule 2023-10-06 00:00: 00 Yes [id number] 500 mg 4 TIMES DAILY 500 mg 4 TIMES DAILY (route: oral) Med Classific ation: Anti-Infe ctive Agents aspirin 81 mg tablet,claire yed release 2023-10 00:00: 00 Yes [id number] 1 tablet DAILY 1 tablet DAILY (route: oral) Med Classific ation: Hematolog ical Agents atorvastati n 80 mg tablet 2023-10 00:00: 00 Yes [id number] 1 tablet BEDTIME 1 tablet BEDTIME (route: oral) Med Classific ation: Cardiovas cular Therapy Agents betamethaso ne dipropionat e 0.05 % topical ointment 2023-10 00:00: 00 Yes [id number] Per instruc tions DAILY Per instructio ns DAILY (route: topical) Med Classific ation: Dermatolo gical carvedilol 6.25 mg tablet 2023-10 00:00: 00 Yes [id number] 1 tablet 2 TIMES DAILY 1 tablet 2 TIMES DAILY (route: oral) Med Classific ation: Cardiovas cular Therapy Agents clonidine HCl 0.2 mg tablet 2023-10- 00:00: 00 Yes [id number] 1 tablet 3 TIMES DAILY 1 tablet 3 TIMES DAILY (route: oral) Med Classific ation: Cardiovas cular Therapy Agents clopidogrel 75 mg tablet 2023-10- 00:00: 00 Yes [id number] 1 tablet DAILY 1 tablet DAILY (route: oral) Med Classific ation: Hematolog ical Agents gabapentin 300 mg capsule 2023-10- 00:00: 00 Yes [id number] 1 capsule 2 TIMES DAILY 1 capsule 2 TIMES DAILY (route: oral) Med Classific ation: Central Nervous System Agents losartan 50 mg tablet 2023-10 00:00: 00 Yes [id number] 0.5 tablet 2 TIMES DAILY 0.5 tablet 2 TIMES DAILY (route: oral) Med Classific ation: Cardiovas cular Therapy Agents methocarbam ol 500 mg tablet 2023-10 00:00: 00 Yes [id number] 1 tablet 3 TIMES DAILY 1 tablet 3 TIMES DAILY (route: oral) Med Classific ation: Locomotor System morphine 15 mg immediate release tablet 2023-10 00:00: 00 Yes [id number] 1 tablet EVERY 12 HOURS 1 tablet EVERY 12 HOURS (route: oral) Med Classific ation: Analgesic , Anti-infl ammatory or Antipyret ic naloxone 4 mg/actuatio n nasal spray 2023-10 00:00: 00 Yes [id number] 1 spray O2 - PRN 1 spray O 2 - PRN (route: nasal) Med Classific ation: Antidotes and other Reversal Agents oxycodone 5 mg tablet 2023-10 00:00: 00 Yes [id number] 1 tablet EVERY 6 HOURS 1 tablet EVERY 6 HOURS (route: oral) Med Classific ation: Analgesic , Anti-infl ammatory or Antipyret ic Vital Signs Vital Name Observation Time Observation Value Commen ts Temperature 2024-10-14 11:17:00.000 97.8 [degF] Temperature 2024-10-11 10:46:00.000 97.6 [degF] Temperature 2024-10-09 14:10:00.000 97.6 [degF] Temperature 2024-10-07 10:07:00.000 97.3 [degF] Temperature 2024-10-04 09:28:00.000 97.3 [degF] Pulse 2024-10-14 11:17:00.000 60 /min Pulse 2024-10-11 10:46:00.000 67 /min Pulse 2024-10-09 14:10:00.000 82 /min Pulse 2024-10-07 10:07:00.000 80 /min Pulse 2024-10-04 09:28:00.000 66 /min O2 Saturation (%) 2024-10-14 11:17:00.000 97 % O2 Saturation (%) 2024-10-11 10:46:00.000 99 % O2 Saturation (%) 2024-10-09 14:10:00.000 98 % O2 Saturation (%) 2024-10-07 10:07:00.000 98 % O2 Saturation (%) 2024-10-04 09:28:00.000 97 % Respirations 2024-10-14 11:17:00.000 18 /min Respirations 2024-10-11 10:46:00.000 18 /min Systolic Blood Pressure 2024-10-14 11:17:00.000 165 mm [Hg] Systolic Blood Pressure 2024-10-11 10:46:00.000 148 mm [Hg] Systolic Blood Pressure 2024-10-09 14:10:00.000 152 mm [Hg] Systolic Blood Pressure 2024-10-07 10:07:00.000 146 mm [Hg] Systolic Blood Pressure 2024-10-04 09:28:00.000 136 mm [Hg] Diastolic Blood Pressure 2024-10-14 11:17:00.000 90 mm [Hg] Diastolic Blood Pressure 2024-10-11 10:46:00.000 88 mm [Hg] Diastolic Blood Pressure 2024-10-09 14:10:00.000 88 mm [Hg] Diastolic Blood Pressure 2024-10-07 10:07:00.000 70 mm [Hg] Diastolic Blood Pressure 2024-10-04 09:28:00.000 80 mm [Hg] Plan of Treatment Planned Activity [...] (PRESCRIPTION/-OTC), AND HOW AND WHEN TO REPORT PROBLEMS.] Future Scheduled Test NEED FOR S KILLED TEACHING AND INTERVENTION RELATED TO NON PRESSURE ULCERS TO BLE PER VASCULAR, SKILLED NURSE OR TRAINED PATIENT/CAREGIVER TO PERFORM WOUND CARE TO LEFT AND RIGHT ANKLE USING ASEPPTIC TECHNIQUE, CLEANSE/IRRIGATE WITH VASHE, PAT DRY WITH GAUZE, APPLY XEROFORM OR CURAD OIL EMMERSION DRESSING TO WOUND BED, COVER WITH DCD, SECURE WITH KERLIX AND TAPE. WOUND CARE TO BE PERFORMED EVERY OTHER DAY AND PRN IF SOILED OR DISLODGED. 1-2 PRN SKILLED NURSE VISITS FOR WOUND CARE DUE TO COMPLICATIONS. SKILLED NURSE TO OBTAIN WOUND CULTURE PRN S/S OF INFECTION. WOUND CARE WILL BE PERFORMED BY TRAINED CAREGIVER ON DAYS WHEN SKILLED NURSE IS NOT SCHEDULED FOR A VISIT. WOUND CARE WILL BE PERFORMED BY TRAINED CAREGIVER ON DAYS WHEN SKILLED NURSE IS NOT SCHEDULED FOR A VISIT. DISCONTINUE WOUND CARE/SUPPLIES ONCE WOUND IS HEALED. [code = NEED FOR SKILLED TEACHING AND INTERVENTION RELATED TO NON PRESSURE ULCERS TO BLE PER VASCULAR, SKILLED NURSE OR TRAINED PATIENT/CAREGIVER TO PERFORM WOUND CARE TO LEFT AND RIGHT ANKLE USING ASEPPTIC TECHNIQUE, CLEANSE/IRRIGATE WITH VASHE, PAT DRY WITH GAUZE, APPLY XEROFORM OR CURAD OIL EMMERSION DRESSING TO WOUND BED, COVER WITH DCD, SECURE WITH KERLIX AND TAPE. WOUND CARE TO BE PERFORMED EVERY OTHER DAY AND PRN IF SOILED OR DISLODGED. 1-2 PRN SKILLED NURSE VISITS FOR WOUND CARE DUE TO COMPLICATIONS. SKILLED NURSE TO OBTAIN WOUND CULTURE PRN S/S OF INFECTION. WOUND CARE WILL BE PERFORMED BY TRAINED CAREGIVER ON DAYS WHEN SKILLED NURSE IS NOT SCHEDULED FOR A VISIT. WOUND CARE WILL BE PERFORMED BY TRAINED CAREGIVER ON DAYS WHEN SKILLED NURSE IS NOT SCHEDULED FOR A VISIT. DISCONTINUE WOUND CARE/SUPPLIES ONCE WOUND IS HEALED.] Future Scheduled Test SKILLED NU RSE TO PERFORM AND RECORD BLOOD SUGAR READING PRN FOR SIGNS AND SYMPTOMS OF HYPO/HYPERGLYCEMIA. [code = SKILLED NURSE TO PERFORM AND RECORD BLOOD SUGAR READING PRN FOR SIGNS AND SYMPTOMS OF HYPO/HYPERGLYCEMIA.] Future Scheduled Test SKILLED NU RSE FOR O/A AND SKILLED TEACHING IN MANAGEMENT OF PVD DISEASE. [code = SKILLED NURSE FOR O/A AND SKILLED TEACHING IN MANAGEMENT OF PVD DISEASE.] Future Scheduled Test SKILLED NU RSE TO PROVIDE TEACHING ON SIGNS AND SYMPTOMS AND MANAGEMENT OF HYPERTENSION. [code = SKILLED NURSE TO PROVIDE TEACHING ON SIGNS AND SYMPTOMS AND MANAGEMENT OF HYPERTENSION.] Future Scheduled Test SKILLED NU RSE FOR O/A AND TEACHING ON SIGNS AND SYMPTOMS AND MANAGEMENT OF HYPOTENSION [code = SKILLED NURSE FOR O/A AND TEACHING ON SIGNS AND SYMPTOMS AND MANAGEMENT OF HYPOTENSION] Future Scheduled Test SKILLED NU RSE TO INSTRUCT PATIENT/CAREGIVER ON WARNING SIGNS OF CVA, RISK FACTORS, AND METHODS TO MANAGE SENIOR CARE EFFECTS OF CVA. [code = SKILLED NURSE TO INSTRUCT PATIENT/CAREGIVER ON WARNING SIGNS OF CVA, RISK FACTORS, AND METHODS TO MANAGE SENIOR CARE EFFECTS OF CVA.] Future Scheduled Test SKILLED NU RSE FOR [...] REPORT.] Future Scheduled Test VIRTUAL SIT FREQUENCY: 1-6 PER WEEK X 3 WEEKS AND 6 PRN VIRTUAL VISITS MAY BE PERFORMED UTILIZING TELECOMMUNICATIONS SYSTEM TO OPTIMIZE SKILLED SERVICES FURNISHED ON THE PLAN OF CARE. SKILLED NURSE TO ESTABLISH SUPPORT MEASURES TO MINIMIZE RISK OF REHOSPITALIZATION, AND INSTRUCT PATIENT/CAREGIVER ON METHODS TO REDUCE AVOIDABLE HOSPITALIZATION. [code = VIRTUAL VISIT FREQUENCY: 1-6 PER WEEK X 3 WEEKS AND 6 PRN VIRTUAL VISITS MAY BE PERFORMED UTILIZING TELECOMMUNICATIONS SYSTEM TO [...] Scheduled Test SKILLED NU RSE TO PERFORM ENVIRONMENTAL SAFETY RISK ASSESSMENT AND FALL RISK ASSESSMENT AND PROVIDE INSTRUCTION TO IMPLEMENT ENVIRONMENTAL SAFETY AND FALL PREVENTION STRATEGIES THROUGHOUT THE CERTIFICATION PERIOD. SKILLED NURSE WILL MAINTAIN SITUATIONAL AWARENESS AND WILL NOTIFY CLINICAL PHOTO TECHNOLOGIST AND PHYSICIAN/PROVIDER WITH ANY CHANGE IN CONDITION. [code = SKILLED NURSE TO PERFORM ENVIRONMENTAL SAFETY RISK ASSESSMENT AND FALL RISK ASSESSMENT AND PROVIDE INSTRUCTION TO IMPLEMENT ENVIRONMENTAL SAFETY AND FALL PREVENTION STRATEGIES THROUGHOUT THE CERTIFICATION PERIOD. SKILLED NURSE WILL MAINTAIN SITUATIONAL AWARENESS AND WILL NOTIFY CLINICAL PHOTO TECHNOLOGIST AND PHYSICIAN/PROVIDER WITH ANY CHANGE IN CONDITION.] Future Scheduled Test SKILLED NU RSE FOR [...] Goal - WOUNDS TO HEA L Goal 2024-09-30 Patient Goal - WOUNDS TO HEA L [...] PATIENT/CAREGIVER WILL VERBALIZE SIGNS AND SYMPTOMS OF HYPOTENSION AND WILL BE ABLE TO DEMONSTRATE ABILITY TO MANAGE EXACERBATION BY END OF THE EPISODE. Goal Provider Goal - PATIENT/CAREGIVER WILL DEMONSTRATE COMPLIANCE WITH TREATMENT REGIME AND VERBALIZE SIGNS AND SYMPTOMS TO REPORT WELL POSSIBLE COMPLICATIONS OF CVA BY END OF EPISODE. Goal Provider Goal [...] Provider Goal - PATIENT/CAREGIVER WILL VERBALIZE/DEMONSTRATE EFFECTIVE ENVIRONMENTAL SAFETY AND FALL PREVENTION STRATEGIES, WILL REMAIN SAFE IN THE COMMUNITY, AND WILL BE FREE OF DANGER TO SELF AND OTHERS THROUGHOUT THE CERTIFICATION PERIOD. Goal Provider Goal [...] PERIOD. Progress Notes Progress Notes <paragraph>[Visit Date: 2024 by MARC TUCKER RN, ADMISSION NURSE]:</paragraph><paragraph>SNV 10/14/24 ABNORMAL VITALS: ALL VITALS WITHIN SET PARAMETERS FALLS: NONE PHYSICAL ASSESSMENT FINDINGS: PT ALERT AND ORIENTATED X3, REPORTS 3/10 WOUND SITE PAIN, ONLY ON GABAPENTIN FOR PAIN. PTS WOUND DRAINAGE R WOUND MODERATE AMOUNT, L WOUND SMALL IMPROVING. PT REPORTS THAT SHE DID NOT CHANGE HER DRESSING SINCE LAST SN VISIT. PT MADE AWARE THAT DAILY DRESSING CHANGE HAVE TO BE DONE TO PREVENT INFECTION. PT DENIES ANY FEVER OR CHILLS, NAUSEA, OR VOMITING, ILL FEELING. PTS WOUND CARE COMPLETED AND DOCUMENTATION DONE IN CHART. MEDICATION CHANGES: YES, TRAMADOL, MORPHINE, OXYCODONE, CEPHALEXIN, GENTAMICIN, METHOCARBAMOL D/C EDUCATION PROVIDED: PT EDUCATED ON MEDICATION REGIMEN, DRESSING CHANGE TO PREVENT INFECTION PT VERBALIZED UNDERSTANDING. NEXT INTERVENTION: WOUND CARE, INFECTION PRECAUTION EDUCATION COMMUNICATION: NONE NEXT PROVIDER APPT: US 10/15/24, VASCULAR 10/17/24 INSTRUCTED PATIENT AND CAREGIVER TO CALL [facility] WITH ANY QUESTIONSOR CHANGES IN CONDITION. PT VERBALIZED UNDERSTANDING</paragraph> <paragraph>[Visit Date: 2024 by MARC TUCKRE RN, ADMISSION NURSE]:</paragraph><paragraph>SNV 10/11/24 ABNORMAL VITALS: ALL VITALS WITHIN SET PARAMETERS FALLS: NONE PHYSICAL ASSESSMENT FINDINGS: PT ALERT AND ORIENTATED X3, DENIES ANY SIGNS OR SYMPTOMS OF INFECTION, DENIES ANY CHILLS OR FEVER, NAUSEA OR VOMITING, DIARRHEA, ILL FEELING. PT DENIES ANY SYNCOPE EPISODE RECENTLY. PT WOUND CARE COMPLETED AND PT TOLERATED WELL. DOCUMENTATION COMPLETED IN [place]. SN ASSISTED PT WITH MEDIPLANNER AND PT VERBALIZED UNDERSTANDING OF MEDICATION REGIMEN MEDICATION CHANGES: NONE EDUCATION PROVIDED: PT EDUCATED ON MEDICATION REGIMEN AND WOUND CARE NEXT INTERVENTION: WOUND CARE AND MEDICATION EDUCATION COMMUNICATION: NONE NEXT PROVIDER APPT: ULTRASOUND 10/15/24, VASCULAR 10/17/24 INSTRUCTED PATIENT AND CAREGIVER TO CALL [facility] WITH ANY QUESTIONSOR CHANGES IN CONDITION.</paragraph> <paragraph>[Visit Date: 2024 by ANGÉLICA BOWLING LPN]:</paragraph><paragraph>SNV 10/09 ABNORMAL VITALS: WITHIN ESTABLISHED PARAMETERS FALLS: NO FALLS OBSERVATION AND ASSESSMENT PROVIDED: PT PRESENTS ALERT ORIENTEDX3, COOPERATIVE DURING VISIT. PT REPORTS MODERATE DISCOMFORT LOWER EXTREMETIES, PT DESCRIBES PAIN ELECTRICAL SHOCK, STATES FEELS LIKE IM BEING TAZERED . PT TOOK TYLENOL Q6 HRS PRN AND GABAPENTIN. DTR IS BACK HOME FROM TRAVEL AND PROVIDES SUPPORT. VSS, AFEBRILE, TR SWELLING BLE, BS NOT CHECKED NO GLUCOMETER IN HOME, NO SS OF HYPO/HYPERGLYCEMIA. NORMAL BOWEL/BLADDER FUNCTION. APPETITE ADEQUATE. EDUCATION: ELEVATE EXTREMETIES, DIABETIC FOOT CARE INTERVENTIONS NEEDED AT NEXT VISIT: WOUND CARE COMMUNICATION WITH MD: NOT NEEDED AT THIS VISIT NEXT MD APPOINTMENT: WOUND CARE 10/17, PCP, NEURO 10/25 PT AND CAREGIVER INSTRUCTED TO CALL [facility] WITH ANY QUESTIONS OR CONCERNS AND/OR CHANGES IN CONDITION, STATE UNDERSTANDING</paragraph> Encounters Start Date/Time End Date/Time Encounter Type Admission Type Attending [facility] [place] Facility Care Department Encounter ID Discharge Date Discharge Status Discharge Condition Discharge Reason Percent Goals Met 2024-08-04 00:00:00 2024-12-01 00:00:00 Outpatient RECERTIFIC ELISHA RAIN [facility] [id number] 15.00
--- OUTSIDE RECORDS SUMMARY | 2024-10-15 19:14 | XMS_ITS | Clinical Summary ---
Author Organization Unknown Care Team Providers Care Plan Rep Name Role Phone NOELLE RUSSELL MD, REBECA Unavailable Unavailable YI ALEXIS, CLINICAL HANDMADE TILE ARTIST, ELISHA Un available Unavailable FABRICE FARR, DUANE Unavailable Unavailable Payers Payer Name Policy Type Policy Number Effective Date Expira tion Date MEDICARE - [facility] [place] - PDGM [id number] Problems Condition Name Condition Details Condition Category [...] W/O RESID 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-09 00:00: 00 FDC (CURRENT) USE OF ASPIRIN Active 10-09 00:00: [...] 2023-10 00:00: 00 08-01 23:59 :00 No [id number] Per instruc tions TWICE A DAY FOR 7 DAYS Per instructio ns TWICE A DAY FOR 7 DAYS (route: oral) Med Classific ation: Anti-Infe ctive Agents ibuprofen 800 mg tablet 2023-10 00:00: 00 08-01 23:59 :00 No [id number] Per instruc tions EVERY 8 HOURS NEEDED Per instructio ns EVERY 8 HOURS NEEDED (route: oral) Med Classific ation: Analgesic , Anti-infl ammatory or Antipyret ic levofloxaci n 750 mg tablet 2023-10 00:00: 00 08-01 23:59 :00 No [id number] Per instruc tions EVERY DAY FOR 7 DAYS Per instructio ns EVERY DAY FOR 7 DAYS (route: oral) Med Classific ation: Anti-Infe ctive Agents methocarbam ol 500 mg tablet 2023-10 00:00: 00 08-01 23:59 :00 No [id number] Per instruc tions THREE TIMES A DAY NEEDED Per instructio ns THREE TIMES A DAY NEEDED (route: oral) Med Classific ation: Locomotor System clonidine HCl 0.2 mg tablet 2023-10 0 00:00: 00 08-01 23:59 :00 No [id number] Per instruc tions 3 TIMES A DAY Per instructio ns 3 TIMES A DAY (route: oral) Med Classific ation: Cardiovas cular Therapy Agents potassium chloride ER 20 mEq tablet,exte nded release 2023-10 0 00:00: 00 08-01 23:59 :00 No [id number] Per instruc tions EVERY DAY Per instructio ns EVERY DAY (route: oral) Med Classific ation: Electroly te Balance-N utritiona l Products Santyl 250 unit/gram topical ointment 07-04 00:00: 00 07-17 00:00 :00 No [id number] Per instruc tions Per instructio ns (route: topical) Med Classific ation: Dermatolo gical clonidine HCl 0.1 mg tablet 06-21 00:00: 00 07-17 00:00 :00 No [id number] Per instruc tions TWICE A DAY FOR 90 DAYS Per instructio ns TWICE A DAY FOR 90 DAYS (route: oral) Med Classific ation: Cardiovas cular Therapy Agents albuterol sulfate HFA 90 mcg/actuati on aerosol inhaler 2023-10 00:00: 00 08-01 23:59 :00 No [id number] 2 puff EVERY 6 HOURS 2 puff EVERY 6 HOURS (route: inhalation ) Med Classific ation: Respirato ry Therapy Agents Aspirin Childrens 81 mg chewable tablet 2023-10 00:00: 00 08-01 23:59 :00 No [id number] 1 tablet DAILY 1 tablet DAILY (route: oral) Med Classific ation: Hematolog ical Agents metformin 500 mg tablet 2023-10 00:00: 00 08-01 23:59 :00 No [id number] 1 tablet 2 TIMES DAILY 1 tablet 2 TIMES DAILY (route: oral) Med Classific ation: Endocrine tramadol 50 mg tablet 2023-10 00:00: 00 08-01 23:59 :00 No [id number] 1 tablet 2 TIMES DAILY 1 tablet 2 TIMES DAILY (route: oral) Med Classific ation: Analgesic , Anti-infl ammatory or Antipyret ic Vitamin D3 25 mcg (1,000 unit) capsule 2023-10 0 00:00: 00 08-01 23:59 :00 No [id number] 1 capsule DAILY 1 capsule DAILY (route: oral) Med Classific ation: Electroly te Balance-N utritiona l Products aspirin 81 mg tablet,claire yed release 2023-10 00:00: 00 Yes [id number] 1 tablet DAILY 1 tablet DAILY (route: oral) Med Classific ation: Hematolog ical Agents betamethaso ne dipropionat e 0.05 % topical ointment 2023-10 00:00: 00 Yes [id number] Per instruc tions DAILY Per instructio ns DAILY (route: topical) Med Classific ation: Dermatolo gical carvedilol 6.25 mg tablet 2023-10 00:00: 00 Yes [id number] 1 tablet 2 TIMES DAILY 1 tablet 2 TIMES DAILY (route: oral) Med Classific ation: Cardiovas cular Therapy Agents clonidine HCl 0.2 mg tablet 2023-10 00:00: 00 Yes [id number] 1 tablet 3 TIMES DAILY 1 tablet 3 TIMES DAILY (route: oral) Med Classific ation: Cardiovas cular Therapy Agents losartan 50 mg tablet 2023-10 00:00: 00 Yes [id number] 1 tablet DAILY 1 tablet DAILY (route: oral) Med Classific ation: Cardiovas cular Therapy Agents naloxone 4 mg/actuatio n nasal spray 2023-10 00:00: 00 Yes [id number] 1 spray DIRECTED 1 spray DIRECTED (route: nasal) Med Classific ation: Antidotes and other Reversal Agents tramadol 50 mg tablet 2023-10 00:00: 00 Yes [id number] 1 tablet EVERY 6 HOURS 1 tablet EVERY 6 HOURS (route: oral) Med Classific ation: Analgesic , Anti-infl ammatory or Antipyret ic methocarbam ol 500 mg tablet 2023-10 00:00: 00 Yes [id number] 1 tablet 3 TIMES DAILY 1 tablet 3 TIMES DAILY (route: oral) Med Classific ation: Locomotor System gabapentin 100 mg capsule 2023-10- 00:00: 00 Yes [id number] 1 capsule BEDTIME 1 capsule BEDTIME (route: oral) Med Classific ation: Central Nervous System Agents gentamicin 0.1 % topical ointment 2023-10- 00:00: 00 Yes [id number] Per instruc tions DAILY Per instructio ns DAILY (route: topical) Med Classific ation: Dermatolo gical cephalexin 500 mg capsule 2023-10-06 00:00: 00 Yes [id number] 500 mg 4 TIMES DAILY 500 mg 4 TIMES DAILY (route: oral) Med Classific ation: Anti-Infe ctive Agents aspirin 81 mg tablet,claire yed release 2023-10 00:00: 00 Yes [id number] 1 tablet DAILY 1 tablet DAILY (route: oral) Med Classific ation: Hematolog ical Agents atorvastati n 80 mg tablet 2023-10 00:00: 00 Yes [id number] 1 tablet BEDTIME 1 tablet BEDTIME (route: oral) Med Classific ation: Cardiovas cular Therapy Agents betamethaso ne dipropionat e 0.05 % topical ointment 2023-10 00:00: 00 Yes [id number] Per instruc tions DAILY Per instructio ns DAILY (route: topical) Med Classific ation: Dermatolo gical carvedilol 6.25 mg tablet 2023-10 00:00: 00 Yes [id number] 1 tablet 2 TIMES DAILY 1 tablet 2 TIMES DAILY (route: oral) Med Classific ation: Cardiovas cular Therapy Agents clonidine HCl 0.2 mg tablet 2023-10- 00:00: 00 Yes [id number] 1 tablet 3 TIMES DAILY 1 tablet 3 TIMES DAILY (route: oral) Med Classific ation: Cardiovas cular Therapy Agents clopidogrel 75 mg tablet 2023-10- 00:00: 00 Yes [id number] 1 tablet DAILY 1 tablet DAILY (route: oral) Med Classific ation: Hematolog ical Agents gabapentin 300 mg capsule 2023-10- 00:00: 00 Yes [id number] 1 capsule 2 TIMES DAILY 1 capsule 2 TIMES DAILY (route: oral) Med Classific ation: Central Nervous System Agents losartan 50 mg tablet 2023-10 00:00: 00 Yes [id number] 0.5 tablet 2 TIMES DAILY 0.5 tablet 2 TIMES DAILY (route: oral) Med Classific ation: Cardiovas cular Therapy Agents methocarbam ol 500 mg tablet 2023-10 00:00: 00 Yes [id number] 1 tablet 3 TIMES DAILY 1 tablet 3 TIMES DAILY (route: oral) Med Classific ation: Locomotor System morphine 15 mg immediate release tablet 2023-10 00:00: 00 Yes [id number] 1 tablet EVERY 12 HOURS 1 tablet EVERY 12 HOURS (route: oral) Med Classific ation: Analgesic , Anti-infl ammatory or Antipyret ic naloxone 4 mg/actuatio n nasal spray 2023-10 00:00: 00 Yes [id number] 1 spray O2 - PRN 1 spray O 2 - PRN (route: nasal) Med Classific ation: Antidotes and other Reversal Agents oxycodone 5 mg tablet 2023-10 00:00: 00 Yes [id number] 1 tablet EVERY 6 HOURS 1 tablet [...] CVA, RISK FACTORS, AND METHODS TO MANAGE FDC EFFECTS OF CVA. [code = SKILLED NURSE TO INSTRUCT PATIENT/CAREGIVER ON WARNING SIGNS OF CVA, RISK FACTORS, AND METHODS TO MANAGE FDC EFFECTS OF CVA.] Future Scheduled Test SKILLED [...] MAINTAIN SITUATIONAL AWARENESS AND WILL NOTIFY CLINICAL MANAGER OPERATING AND PHYSICIAN/PROVIDER WITH ANY CHANGE IN CONDITION. [code = SKILLED NURSE TO PERFORM ENVIRONMENTAL SAFETY RISK ASSESSMENT AND FALL RISK ASSESSMENT AND PROVIDE INSTRUCTION TO IMPLEMENT ENVIRONMENTAL SAFETY AND FALL PREVENTION STRATEGIES THROUGHOUT THE CERTIFICATION PERIOD. SKILLED NURSE WILL MAINTAIN SITUATIONAL AWARENESS AND WILL NOTIFY CLINICAL MANAGER OPERATING AND PHYSICIAN/PROVIDER WITH ANY CHANGE IN CONDITION.] [...] CARE WILL BE ESTABLISHED THAT MEETS PATIENT'S [facility] NEEDS AND INCLUDES PATIENT GOAL FOR HOME [...] VERBALIZED UNDERSTANDING</paragraph> <paragraph>[Visit Date: 2024 by MARC TUCKER RN, ADMISSION NURSE]:</paragraph><paragraph>SNV 10/11/24 ABNORMAL VITALS: ALL [...] End Date/Time Encounter Type Admission Type Attending [facility] Facility Care Department Encounter ID Discharge Date Discharge Status Discharge Condition Discharge Reason Percent Goals Met 2024-08-04 00:00:00 2024-12-01 00:00:00 Outpatient RECERTIFIC ELISHA RAIN [facility] [id number] 15.00
== END 2024-10-15 15:15 | disposition home or self-care (01) ==
LOC: HO.US 15:14
PROVIDERS: PCP Internal Medicine; Visit Provider Physician Assistant Surgical
DX: I73.9 Peripheral vascular disease, unspecified (principal)
CPT/HCPCS: 93922; 93925

== ENCOUNTER → 2024-10-15 15:16 | Outpatient (BNV) | payer MEDICARE, SELFPAY | PROVIDERS: PCP Internal Medicine; Visit Provider Specialist | DX: I73.9 Peripheral vascular disease, unspecified (principal) | CPT/HCPCS: 93923; 93925 ==

== ENCOUNTER 2024-10-17 14:00 | Outpatient (AMB) | payer MEDICARE, SELFPAY ==
--- NOTE | 2024-10-17 14:01 | A.OFFVIS_ITS ---
Intake Visit Reasons: Follow up w/c and US Intake Note: F/U w/c and US. Pt requesting a prescription for gabapentin 300mg and Vashe wound solution. Internal Combustion Engineer Required: No Accompanied by: Daughter Allergies amlodipine Allergy (Intermediate, Verified 10/01/24 11:20) drowsiness, swelling of feet and ankles lisinopril Allergy (Intermediate, Verified 10/01/24 11:20) cough hydralazine Allergy (Verified 10/01/24 11:20) Swelling metformin Adverse Reaction (Verified 10/01/24 11:20) Diarrhea Lisinopril-Hydrochlorothiazide Adverse Reaction (Intermediate, Uncoded 09/27/24 11:04) Leg swelling Metoprolol Tartrate Adverse Reaction (Intermediate, Uncoded 09/27/24 11:04) Leg swelling HPI HPI Follow up w/c and US: Details: Miladys is presenting today with her daughter for a follow up to wound care for bilateral lower extremity wounds. She is also here for a follow up to an arterial duplex lower extremity ultrasound performed on 10/15/2024. She continues with VNA services on Monday, Monday, and Monday. She is not changing her dressings on any other days of the week. She states her pain is pretty well controlled with the gabapentin and she has been taking less narcotic medications. She states the left lower extremity wound has been getting even better and is very happy with that. [facility] Medical History Hypertension Wound of lower extremity Venous stasis ulcer Chronic ulcer of left ankle Diabetes Hypertension Abnormal Pap smear of cervix Diabetes mellitus Hypertension Renal calculi Diastasis recti Dyslipidemia associated with type 2 diabetes mellitus Abdominal mass Microalbuminuria Renal calculi Morbid obesity Surgical History Hx of prior ablation treatment Family History Father Seizures Mother Seizures Congenital heart disease in adult Hypotension Maternal Grandfather Leukemia Social History Household Members: Family Housing: House Do you presently have visiting nurse or other home services: No Alcohol intake: current Alcohol intake frequency: holidays/special occasions only Alcohol type: wine Patient Tobacco Use Status: Former Tobacco user Tobacco use type: Cigarette e-Cigarette/Vaping Use: Never Used Second Hand Smoke Exposure: No Substance Use Type: Marijuana service: No Current occupational status: employed Current occupational exposures/hazards: No Cognitive needs: No Hearing needs: No Vision needs: No Review of Systems Const Denies chills, Denies fatigue, Denies fever(s), Denies weight gain and Denies weight loss ENT Reports Normal hearing present and Denies dizziness Card Denies chest pain, Denies leg edema, Denies lightheadedness, Denies palpitations , Denies dyspnea on exertion, Denies orthopnea and Denies other Resp Denies cough and Denies dyspnea on exertion GI Denies hematochezia and Denies change in stool character Musc Denies abnormal gait, Denies muscle weakness, Denies numbness, Denies radiating pain into limb and Denies tingling Neuro Reports Normal hearing present, Denies abnormal gait, Denies dizziness, Denies numbness, Denies Sensory deficit (Neuro) and Denies tingling Endo Denies fatigue and Denies palpitations Physical Exam Const General: healthy appearing and no acute distress Orientation/consciousness: patient oriented x3 HEENT Head: Yes normal to inspection Ears: hearing grossly normal bilaterally Mouth: Normal oral and palatal mucosa present Resp Effort & Inspection: normal respiratory effort and able to speak in complete sentences Auscultation: clear to auscultation bilaterally Cardio Jugular venous distension: no JVD Rate: regular rate Rhythm: regular rhythm Heart sounds: S1 normal heart sound present and S2 normal heart sound present Bruits: no abdominal aortic bruits, no carotid bruits, no femoral bruits and no renal bruits Peripheral pulses: Peripheral pulses 2+ throughout GI Inspection: Yes normal to inspection Palpation (GI): No Abdominal aortic bruit present Skin General skin exam: no rashes or lesions noted Wounds: no wounds Hair: normal Neuro General: patient oriented x3 Cranial nerves: Yes CN's II-XII intact bilaterally and Yes Normal hearing present Cognition (Neuro): normal cognition Gait exam (Neuro): Normal gait present Motor exam (neuro): 5/5 motor strength present throughout Sensory Exam: No Sensory deficit (Neuro) Extrem Other: Left lower extremity on the lateral aspect: Small ulcer, flat. Wound bed is pink/red. No slough noted. No bleeding or discharge noted. No pain Right lower extremity: Open ulcer measuring 11.5 x 8.5 x 0.5 cm, decreased from size 11.5 x 9.5 x 0.5 cm from last visit on 10/01. Patient continues to endorse pain all throughout. No eschar noted in the site. Slight yellow slough noted o n dressing, no slough noted in the wound bed. Wound bed is very pink/red. There was no bleeding noted. General: Yes normal to inspection, Yes full ROM, Yes capillary refill normal and Yes normal gait Results Reviewed Results Reviewed: Bilateral lower extremity arterial duplex ultrasound: TRE readings within normal limits. Right: Biphasic flow in the SOLUTIONS MARKET CONSULTANT and monophasic flow through the proximal profunda. Triphasic flow from the proximal SFA down to the LUG BREAKER AND WIRE PULLER Left: Triphasic flow throughout Assessment & Plan Assessment & Plan (1) PAD (peripheral artery disease): Code(s): I73.9 - Peripheral vascular disease, unspecified Category: Medical Plan: Miladys is presenting today with her daughter for wound care check in follow up to her arterial duplex ultrasound of bilateral lower extremities, performed on 10/15/2024. Her ultrasound was negative for any insufficiency and there is significant triphasic flow through most of the arteries. Her ABIs were also within normal limits. She continues to have VNA services 3 times a week for dressing changes; she is not changing the dressings other than those days. She is very happy with the left lower extremity wound, she states it is getting smaller in size. She does continue to endorse pain in the right lower extremity, but states it is pretty well controlled. We will change the dressing on the right lower extremity to a calcium alginate with ABD pads and Kerlix wrap due to the moist as of the wound. We will continue with the Xeroform and an Allevyn dressing on the left lower extremity due to the wound being on the graphite pan drier tender side. We discussed a follow up in 2-3 weeks, likely we will be seeing her at our wound care clinic in the office on the . We discussed following up with her primary care for further refills of Gabapentin for her pain control. If there are any questions or concerns or if she needs to be seen earlier, please do not hesitate to reach out to the office. Coding Level of Care Code Est Pt Level 4 (59123) Diagnoses PAD (peripheral artery disease) I73.9 Comment Wound care, review of arterial duplex ultrasound
--- OUTSIDE RECORDS SUMMARY | 2024-10-17 15:10 | XMS_ITS | Clinical Summary ---
Author Organization Unknown Care Team Providers Care Automobile Seat Cover Installer Name Role Phone NOELLE RUSSELL MD, REBECA Unavailable Unavailable CAITLIN RN, ADMISSION NURSE, MARC Unavail able Unavailable YI ALEXIS, CLINICAL GRINDING MACHINE TENDER, ELISHA Rosario available Unavailable CALIN CONVEX GRINDER, OLAMIDE Unavailable Unavailab Estrada PT, DUANE Unavailable Unavailable Payers Payer Name Policy Type Policy Number Effective Date Expira tion Date [facility]IC[facility] PDGM [id number] Problems Condition Name Condition Details Condition Category [...] W/O RESID 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-09 00:00: 00 KETTLE TENDER (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) USE OF ASPIRIN Active 10-09 00:00: [...] 2023-10 00:00: 00 08-01 23:59 :00 No [id number] Per instruc tions TWICE A DAY FOR 7 DAYS Per instructio ns TWICE A DAY FOR 7 DAYS (route: oral) Med Classific ation: Anti-Infe ctive Agents ibuprofen 800 mg tablet 2023-10 00:00: 00 08-01 23:59 :00 No [id number] Per instruc tions EVERY 8 HOURS NEEDED Per instructio ns EVERY 8 HOURS NEEDED (route: oral) Med Classific ation: Analgesic , Anti-infl ammatory or Antipyret ic levofloxaci n 750 mg tablet 2023-10 00:00: 00 08-01 23:59 :00 No [id number] Per instruc tions EVERY DAY FOR 7 DAYS Per instructio ns EVERY DAY FOR 7 DAYS (route: oral) Med Classific ation: Anti-Infe ctive Agents methocarbam ol 500 mg tablet 2023-10 00:00: 00 08-01 23:59 :00 No [id number] Per instruc tions THREE TIMES A DAY NEEDED Per instructio ns THREE TIMES A DAY NEEDED (route: oral) Med Classific ation: Locomotor System clonidine HCl 0.2 mg tablet 2023-10 00:00: 00 08-01 23:59 :00 No [id number] Per instruc tions 3 TIMES A DAY Per instructio ns 3 TIMES A DAY (route: oral) Med Classific ation: Cardiovas cular Therapy Agents potassium chloride ER 20 mEq tablet,exte nded release 2023-10 00:00: 00 08-01 23:59 :00 No [id number] Per instruc tions EVERY DAY Per instructio ns EVERY DAY (route: oral) Med Classific ation: Electroly te Balance-N utritiona l Products Santyl 250 unit/gram topical ointment 07-04 00:00: 00 07-17 00:00 :00 No [id number] Per instruc tions Per instructio ns (route: topical) Med Classific ation: Dermatolo gical clonidine HCl 0.1 mg tablet 06-21 00:00: 00 07-17 00:00 :00 No [id number] Per instruc tions TWICE A DAY FOR 90 DAYS Per instructio ns TWICE A DAY FOR 90 DAYS (route: oral) Med Classific ation: Cardiovas cular Therapy Agents albuterol sulfate HFA 90 mcg/actuati on aerosol inhaler 2023-10 00:00: 00 08-01 23:59 :00 No [id number] 2 puff EVERY 6 HOURS 2 puff EVERY 6 HOURS (route: inhalation ) Med Classific ation: Respirato ry Therapy Agents Aspirin Childrens 81 mg chewable tablet 2023-10 00:00: 00 08-01 23:59 :00 No [id number] 1 tablet DAILY 1 tablet DAILY (route: oral) Med Classific ation: Hematolog ical Agents metformin 500 mg tablet 2023-10 00:00: 00 08-01 23:59 :00 No [id number] 1 tablet 2 TIMES DAILY 1 tablet 2 TIMES DAILY (route: oral) Med Classific ation: Endocrine tramadol 50 mg tablet 2023-10 00:00: 08-01 23:59 :00 No [id number] 1 tablet 2 TIMES DAILY 1 tablet 2 TIMES DAILY (route: oral) Med Classific ation: Analgesic , Anti-infl ammatory or Antipyret ic Vitamin D3 25 mcg (1,000 unit) capsule 2023-10 009 00:00: 00 08-01 23:59 :00 No [id number] 1 capsule DAILY 1 capsule DAILY (route: oral) Med Classific ation: Electroly te Balance-N utritiona l Products aspirin 81 mg tablet,claire yed release 2023-10 00:00: 00 Yes [id number] 1 tablet DAILY 1 tablet DAILY (route: oral) Med Classific ation: Hematolog ical Agents betamethaso ne dipropionat e 0.05 % topical ointment 2023-10 00:00: 00 Yes [id number] Per instruc tions DAILY Per instructio ns DAILY (route: topical) Med Classific ation: Dermatolo gical carvedilol 6.25 mg tablet 2023-10 00:00: 00 Yes [id number] 1 tablet 2 TIMES DAILY 1 tablet 2 TIMES DAILY (route: oral) Med Classific ation: Cardiovas cular Therapy Agents clonidine HCl 0.2 mg tablet 2023-10 00:00: 00 Yes [id number] 1 tablet 3 TIMES DAILY 1 tablet 3 TIMES DAILY (route: oral) Med Classific ation: Cardiovas cular Therapy Agents losartan 50 mg tablet 2023-10 00:00: 00 Yes [id number] 1 tablet DAILY 1 tablet DAILY (route: oral) Med Classific ation: Cardiovas cular Therapy Agents naloxone 4 mg/actuatio n nasal spray 2023-10 00:00: 00 Yes [id number] 1 spray DIRECTED 1 spray DIRECTED (route: nasal) Med Classific ation: Antidotes and other Reversal Agents tramadol 50 mg tablet 2023-10 00:00: 00 10-14 23:59 :00 No [id number] 1 tablet EVERY 6 HOURS 1 tablet EVERY 6 HOURS (route: oral) Med Classific ation: Analgesic , Anti-infl ammatory or Antipyret ic methocarbam ol 500 mg tablet 2023-10 00:00: 00 10-14 23:59 :00 No [id number] 1 tablet 3 TIMES DAILY 1 tablet 3 TIMES DAILY (route: oral) Med Classific ation: Locomotor System gabapentin 100 mg capsule 2023-10 00:00: 00 Yes [id number] 1 capsule BEDTIME 1 capsule BEDTIME (route: oral) Med Classific ation: Central Nervous System Agents gentamicin 0.1 % topical ointment 2023-10 00:00: 00 10-14 23:59 :00 No [id number] Per instruc tions DAILY Per instructio ns DAILY (route: topical) Med Classific ation: Dermatolo gical cephalexin 500 mg capsule 2023-10 00:00: 00 10-14 23:59 :00 No [id number] 500 mg 4 TIMES DAILY 500 mg 4 TIMES DAILY (route: oral) Med Classific ation: Anti-Infe ctive Agents aspirin 81 mg tablet,claire yed release 2023-10 00:00: 00 Yes [id number] 1 tablet DAILY 1 tablet DAILY (route: oral) Med Classific ation: Hematolog ical Agents atorvastati n 80 mg tablet 2023-10 00:00: 00 Yes [id number] 1 tablet BEDTIME 1 tablet BEDTIME (route: oral) Med Classific ation: Cardiovas cular Therapy Agents betamethaso ne dipropionat e 0.05 % topical ointment 2023-10 00:00: 00 Yes [id number] Per instruc tions DAILY Per instructio ns DAILY (route: topical) Med Classific ation: Dermatolo gical carvedilol 6.25 mg tablet 2023-10 00:00: 00 Yes [id number] 1 tablet 2 TIMES DAILY 1 tablet 2 TIMES DAILY (route: oral) Med Classific ation: Cardiovas cular Therapy Agents clonidine HCl 0.2 mg tablet 2023-10 00:00: 00 Yes [id number] 1 tablet 3 TIMES DAILY 1 tablet 3 TIMES DAILY (route: oral) Med Classific ation: Cardiovas cular Therapy Agents clopidogrel 75 mg tablet 2023-10 00:00: 00 Yes [id number] 1 tablet DAILY 1 tablet DAILY (route: oral) Med Classific ation: Hematolog ical Agents gabapentin 300 mg capsule 2023-10 00:00: 00 Yes [id number] 1 capsule 2 TIMES DAILY 1 capsule 2 TIMES DAILY (route: oral) Med Classific ation: Central Nervous System Agents losartan 50 mg tablet 2023-10 00:00: 00 Yes [id number] 0.5 tablet 2 TIMES DAILY 0.5 tablet 2 TIMES DAILY (route: oral) Med Classific ation: Cardiovas cular Therapy Agents methocarbam ol 500 mg tablet 2023-10 00:00: 00 10-14 23:59 :00 No [id number] 1 tablet 3 TIMES DAILY 1 tablet 3 TIMES DAILY (route: oral) Med Classific ation: Locomotor System morphine 15 mg immediate release tablet 2023-10 00:00: 00 10-14 23:59 :00 No [id number] 1 tablet EVERY 12 HOURS 1 tablet EVERY 12 HOURS (route: oral) Med Classific ation: Analgesic , Anti-infl ammatory or Antipyret ic naloxone 4 mg/actuatio n nasal spray 2023-10 00:00: 00 Yes [id number] 1 spray O2 - PRN 1 spray O 2 - PRN (route: nasal) Med Classific ation: Antidotes and other Reversal Agents oxycodone 5 mg tablet 2023-10 00:00: 00 10-14 23:59 :00 No [id number] 1 tablet EVERY 6 HOURS 1 tablet EVERY 6 HOURS (route: oral) Med Classific ation: Analgesic , Anti-infl ammatory or Antipyret ic Vital Signs Vital Name Observation Time Observation Value Commen ts Temperature 2024-10-16 11:19:00.000 98.9 [degF] Temperature 2024-10-16 09:40:00.000 98.2 [degF] Temperature 2024-10-14 11:17:00.000 97.8 [degF] Temperature 2024-10-11 10:46:00.000 97.6 [degF] Temperature 2024-10-09 14:10:00.000 97.6 [degF] Temperature 2024-10-07 10:07:00.000 97.3 [degF] Temperature 2024-10-04 09:28:00.000 97.3 [degF] Pulse 2024-10-16 11:19:00.000 71 /min Pulse 2024-10-16 09:40:00.000 78 /min Pulse 2024-10-14 11:17:00.000 60 /min Pulse 2024-10-11 10:46:00.000 67 /min Pulse 2024-10-09 14:10:00.000 82 /min Pulse 2024-10-07 10:07:00.000 80 /min Pulse 2024-10-04 09:28:00.000 66 /min O2 Saturation (%) 2024-10-16 11:19:00.000 98 % O2 Saturation (%) 2024-10-16 09:40:00.000 98 % O2 Saturation (%) 2024-10-14 11:17:00.000 97 % O2 Saturation (%) 2024-10-11 10:46:00.000 99 % O2 Saturation (%) 2024-10-09 14:10:00.000 98 % O2 Saturation (%) 2024-10-07 10:07:00.000 98 % O2 Saturation (%) 2024-10-04 09:28:00.000 97 % Respirations 2024-10-16 11:19:00.000 18 /min Respirations 2024-10-16 09:40:00.000 16 /min Respirations 2024-10-14 11:17:00.000 18 /min Respirations 2024-10-11 10:46:00.000 18 /min Systolic Blood Pressure 2024-10-16 11:19:00.000 150 mm [Hg] Systolic Blood Pressure 2024-10-16 09:40:00.000 138 mm [Hg] Systolic Blood Pressure 2024-10-14 11:17:00.000 165 mm [Hg] Systolic Blood Pressure 2024-10-11 10:46:00.000 148 mm [Hg] Systolic Blood Pressure 2024-10-09 14:10:00.000 152 mm [Hg] Systolic Blood Pressure 2024-10-07 10:07:00.000 146 mm [Hg] Systolic Blood Pressure 2024-10-04 09:28:00.000 136 mm [Hg] Diastolic Blood Pressure 2024-10-16 11:19:00.000 90 mm [Hg] Diastolic Blood Pressure 2024-10-16 09:40:00.000 70 mm [Hg] Diastolic Blood Pressure 2024-10-14 11:17:00.000 [...] CVA, RISK FACTORS, AND METHODS TO MANAGE KETTLE TENDER EFFECTS OF CVA. [code = SKILLED NURSE TO INSTRUCT PATIENT/CAREGIVER ON WARNING SIGNS OF CVA, RISK FACTORS, AND METHODS TO MANAGE LONG-TERM EFFECTS OF CVA.] Future Scheduled Test SKILLED [...] MAINTAIN SITUATIONAL AWARENESS AND WILL NOTIFY CLINICAL NUCLEAR SPECTROSCOPIST AND PHYSICIAN/PROVIDER WITH ANY CHANGE IN CONDITION. [code = SKILLED NURSE TO PERFORM ENVIRONMENTAL SAFETY RISK ASSESSMENT AND FALL RISK ASSESSMENT AND PROVIDE INSTRUCTION TO IMPLEMENT ENVIRONMENTAL SAFETY AND FALL PREVENTION STRATEGIES THROUGHOUT THE CERTIFICATION PERIOD. SKILLED NURSE WILL MAINTAIN SITUATIONAL AWARENESS AND WILL NOTIFY CLINICAL NUCLEAR SPECTROSCOPIST AND PHYSICIAN/PROVIDER WITH ANY CHANGE IN CONDITION.] [...] CARE WILL BE ESTABLISHED THAT MEETS PATIENT'S ASSISTED NEEDS AND INCLUDES PATIENT GOAL FOR HOME [...] Notes Progress Notes <paragraph>[Visit Date: 2024 by DUANE AIVNA PT]:</paragraph><paragraph>10/16: PATIENT IS A 69-YEAR-OLD FEMALE WITH HISTORY LISTED IN CHART AND REFERRAL PAPERWORK PRESENTS REFERRAL FOR HOME PT SERVICES, PATIENT IS CURRENTLY RECEIVING ASSISTED FOR BILATERAL LOWER EXTREMITY WOUNDS SECONDARY TO PYODERMA GANGRENOSA INFECTION. PLOF: PATIENT LIVES WITH HER SONS IN MULTIFAMILY APARTMENT COMPLEX, 1 FLIGHT OF STAIRS TO ENTER APARTMENT. PATIENT DENIES PRIOR FALLS HISTORY. PATIENT IS TYPICALLY INDEPENDENT WITH COMMUNITY MOBILITY AND ADLS/IADLS. APARTMENT IS CLUTTERED WITH QUESTIONABLY WERE CLEAR PATHWAYS, EDUCATED PATIENT ON IMPROVING CLEARNESS OF PATHWAYS TO AVOID TRIPPING HAZARDS AND TO REMOVE THROW RUGS AND CLUTTER. PATIENT DEMONSTRATES LOWER EXTREMITY WEAKNESS EVIDENCED BY 30 SECOND [id number] SCORE LESS THAN 8 REPETITIONS. SHE REQUIRED CGA X1 FOR LEVEL SURFACE AMBULATION WITH FURNITURE WALKING APPRECIATED AND WITH STAIR NAVIGATION, PATIENT DECLINES TO USE ROLLING WALKER AND WILL LIKELY NOT BE HELPFUL GIVEN AMOUNT OF CLUTTER IN HER HOME ENVIRONMENT. PATIENT WILL REQUIRE HOME PT SERVICES IN ORDER TO MAXIMIZE CURRENT LEVEL OF FUNCTION AND INDEPENDENCE PATIENT DEMONSTRATES LOWER EXTREMITY WEAKNESS, IMPAIRED BALANCE, AND IMPAIRED ACTIVITY TOLERANCE SECONDARY TO PAIN. WILL PLAN FOR PT PLAN OF CARE 1 TIME A WEEK FOR NEXT 8 WEEKS. VERBAL ORDER RECEIVED FOR PT PLAN OF CARE BY THELMA AT MD OFFICE.</paragraph> <paragraph>[Visit Date: 2024 by MARC TUCKER RN, ADMISSION NURSE]:</paragraph><paragraph>SNV 10/16/24 ABNORMAL VITALS: ALL VITALS WITHIN SET PARAMETERS FALLS: NONE PHYSICAL ASSESSMENT FINDINGS: PT ALERT AND ORIENTATED X3, REPORTS 3/10 PAIN TO R LE WOUND SITE. PT DENIES ANY FEVER OR CHILLS, THROBBING OR INCREASE PAIN TO WOUND SITE. PT HAD AN ULTRASOUND OF BILATERAL LE AND WILL SEE VASCULAR FOR RESULTS. PTS WOUND CARE COMPLETED AND DOCUMENTATION DONE IN [facility] SYSTEM. PT TOLERATED WOUND CARE WELL. PTS LS CLEAR THROUGHOUT, BSX4 LBM TODAY. PTS MEDIPLANNER WAS FILLED. MEDICATION CHANGES: NONE EDUCATION PROVIDED: PT EDUCATED ON MEDICATION AND DIABETES AND PT VERBALIZED UNDERSTANDING. NEXT INTERVENTION: WOUND CARE, PHYSICAL ASSESSMENT, VS MD COMMUNICATION: NONE NEXT PROVIDER APPT: VASCULAR 10/17/24 INSTRUCTED PATIENT TO CALL [facility] WITH ANY QUESTIONSOR CHANGES IN CONDITION. [...] NEXT INTERVENTION: WOUND CARE, INFECTION PRECAUTION EDUCATION MD COMMUNICATION: NONE NEXT PROVIDER APPT: US 10/15/24, VASCULAR 10/17/24 INSTRUCTED PATIENT AND CAREGIVER TO CALL [facility] WITH ANY QUESTIONSOR CHANGES IN CONDITION. [...] NEXT INTERVENTION: WOUND CARE AND MEDICATION EDUCATION MD COMMUNICATION: NONE NEXT PROVIDER APPT: ULTRASOUND 10/15/24, VASCULAR 10/17/24 INSTRUCTED PATIENT AND CAREGIVER TO CALL [facility] WITH ANY QUESTIONSOR CHANGES IN CONDITION.</paragraph> Encounters Start Date/Time End Date/Time Encounter Type Admission Type Attending Clinicians Care Facility Care Department Encounter ID Discharge Date Discharge Status Discharge Condition Discharge Reason Percent Goals Met 2024-08-04 00:00:00 2024-12-01 00:00:00 Outpatient RECERTIFIC ELISHA RAIN [facility] [id number] 27.27
== END 2024-10-17 14:48 | disposition home or self-care (01) ==
PROVIDERS: PCP Internal Medicine; Visit Provider Physician Assistant Surgical
DX: I73.9 Peripheral vascular disease, unspecified (principal)
CPT/HCPCS: 99214

== ENCOUNTER → 2024-10-17 14:00 | Outpatient (BNVA) | payer MEDICARE, SELFPAY | PROVIDERS: PCP Internal Medicine; Visit Provider Physician Assistant Surgical | DX: I73.9 Peripheral vascular disease, unspecified (principal) | CPT/HCPCS: 99212 ==

== ENCOUNTER 2024-10-25 13:23 | Outpatient (AMB) | payer SELFPAY ==
--- NOTE | 2024-10-25 13:36 | A.OFFPC_ITS ---
Vital Signs 10/25/24 13:37 Height 5 ft 7 in Weight 247 lb BMI 38.7 BP 136/88 Blood Pressure Location Lt brachial Position Sitting Pulse 81 Pulse Source Pulse Oximeter Pulse Oximetry (%) 98 Oxygen Delivery Method Room Air Intake Visit Reasons: f/u cholesterol and DM Allergies amlodipine Allergy (Intermediate, Verified 10/25/24 13:37) drowsiness, swelling of feet and ankles lisinopril Allergy (Intermediate, Verified 10/25/24 13:37) cough hydralazine Allergy (Verified 10/25/24 13:37) Swelling metformin Adverse Reaction (Verified 10/25/24 13:37) Diarrhea Lisinopril-Hydrochlorothiazide Adverse Reaction (Intermediate, Uncoded 10/25/24 13:37) Leg swelling Metoprolol Tartrate Adverse Reaction (Intermediate, Uncoded 10/25/24 13:37) Leg swelling Medication List - Last Reconciled 10/25/24 by Aliza Clemens PA-C albuterol sulfate 90 mcg/actuation 2 puffs inhalation Q6H PRN aspirin (Adult Aspirin Regimen) 81 mg PO DAILY 90 days atorvastatin 80 mg PO BEDTIME 90 days blood sugar diagnostic (Freestyle [employer] strips) USe 1 test strip once a day blood-glucose meter (Freestyle [employer] meter) As directed carvedilol 6.25 mg See Protocol PO BID cholecalciferol (vitamin D3) 25 mcg PO DAILY clonidine HCl 0.2 mg (2 x 0.1 mg) PO TID clopidogrel 75 mg PO DAILY compr.stocking,knee,long,large As directed gabapentin 300 mg PO BEDTIME 90 days losartan 25 mg See Protocol PO BID methocarbamol 500 mg PO TID PRN naloxone 4 mg/actuation intranasal sodium chlor-hypochlorous acid 0.033 % (Vashe) 1 irrig irrigation Q3-4H PRN 30 days Tobacco use date assessed: 10/25/24 Fall risk assessment: No Falls in past year Last assessed Fall Risk: 10/25/24 Dental Screening Dental Screen Date: 10/25/24 Did you have a dental visit in the last 12 months?: Yes Did you have a dental problem in the last 6 months where you did not have access to dental care?: No Was dental information given to patient?: Patient has dentist HPI f/u cholesterol and DM HPI Details 69-year-old female with past medical his tory of diabetes mellitus, hypertension, dyslipidemia, and morbid obesity last seen 09/2024 coming in for follow up.? In review of the notes, patient was seen by vascular surgery 10/17/2024 ultrasound was negative for any insufficiency and ABIs were within normal limits advised to follow up in 2-3 weeks. Patient tells us today her left leg ulcer has almost completely closed off. She is no longer taking opiates and just using Tylenol and gabapentin as needed. She has no other concerns today. [facility] Medical History Hypertension Wound of lower extremity Venous stasis ulcer Chronic ulcer of left ankle Diabetes Hypertension Abnormal Pap smear of cervix Diabetes mellitus Hypertension Renal calculi Diastasis recti Dyslipidemia associated with type 2 diabetes mellitus Abdominal mass Microalbuminuria Renal calculi Morbid obesity Surgical History Hx of prior ablation treatment Family History Father Seizures Mother Seizures Congenital heart disease in adult Hypotension Maternal Grandfather Leukemia Social History Household Members: Family Housing: House Do you presently have visiting nurse or other home services: No Alcohol intake: current Alcohol intake frequency: holidays/special occasions o nly Alcohol type: wine Patient Tobacco Use Status: Former Tobacco user Tobacco use type: Cigarette e-Cigarette/Vaping Use: Never Used Second Hand Smoke Exposure: No Substance Use Type: Marijuana service: No Current occupational status: employed Current occupational exposures/hazards: No Cognitive needs: No Hearing needs: No Vision needs: No Questionnaire PHQ-9 Over the last 2 weeks, how often have you been bothered by any of the following problems? 1. Little interest or pleasure in doing things: not at all 2. Feeling down, depressed, or hopeless: not at all 3. Trouble falling or staying asleep, or sleeping too much: not at all 4. Feeling tired or having little energy: not at all 5. Poor appetite or overeating: not at all 6. Feeling bad about yourself - or that you are a failure or have let yourself or your family down: not at all 7. Trouble concentrating on things, such as reading the newspaper or watching television: not at all 8. Moving or speaking so slowly that other people could have noticed. Or the opposite - being so fidgety or restless that you have been moving around a lot more than usual: not at all 9. Thoughts that you would be better off or of hurting yourself in some way: not at all Total score: 0 Depression Screening Interpretation: Negative Depression Screening Done: Yes Source: Developed by Drs. Cesar Snow, Ela Wiley, Benjamín Chino and colleagues, with an educational rio from [employer]. Thrive Questionnaire Date Thrive assessed: 10/25/24 I am a: Patient What is your living situation today?: I have a steady place to live Within the past 12 months, did the food you bought not last and you didn't have the money to get more?: Never true Within the past 12 months, did you worry whether your food would run out before you got money to buy more?: Never true Do you have trouble paying for medicines?: No Do you have trouble getting transportation to medical appointments?: No Do you have trouble paying your heating and electricity bill?: No Do you have trouble taking care of your child, family member or friend?: No Do you have trouble with day-to-day activities such as bathing, preparing meals, shopping, managing finances, etc.?: No Are you currently unemployed and looking for a job?: No Are you interested in more education?: No Currently or been in a relationship where the following occur: No concerns reported THRIVE Score: 0 AUDIT C Alcohol Use Questionnaire (AUDIT-C) 2. How many drinks containing alcohol do you have on a typical day when you are drinking?: 1 or 2 3. How often do you have six or more drinks on one occasion?: Never Total Score: 0 MARLYN-7 AMB Questionnaire MARLYN-7 Date MARLYN - 7 assessed: 10/25/24 Feeling nervous, anxious, or on edge: 0 = Not at all Not being able to stop or control worryin = Not at all Worrying too much about different things: 0 = Not at all Trouble relaxin = Not at all Being so restless that it is hard to sit still: 0 = Not at all Becoming easily annoyed or irritable: 0 = Not at all Feeling afraid as if something awful might happen: 0 = Not at all Total MARLYN-7 score (0-4 normal; 5-9 mild; 10-14 moderate; 15-21 severe): 0 Source: Developed by Drs. Cesar Snow, Ela Wiley, Benjamín Chino and colleagues, with an educational rio from [employer]. Review of Systems Const Denies body aches, Denies chills, Denies fever(s), Denies headache(s) and Denies poor appetite Eyes Reports no additional complaints ENT Denies dysphagia, Denies dizziness, Denies headache(s) and Denies odynophagia Card Denies chest pain, Denies syncope, Denies edema, Denies irregular heart rhythm, Denies lightheadedness and Denies dyspnea Resp Denies cough and Denies dyspnea GI Denies abdominal pain, Denies constipation, Denies dysphagia, Denies diarrhea, Denies nausea, Denies odynophagia and Denies vomiting Reports no additional complaints Musc Reports no additional complaints and Denies abnormal gait Skin/Breast Reports system reviewed and no additional complaints, except as documented Neuro Denies abnormal gait, Denies dizziness, Denies syncope and Denies headache(s) Psych Reports no additional complaints Physical exam (Primary Care) Vital Signs: Last Vital Signs Pulse 81 10/25/24 13:37 BP 136/88 10/25/24 13:37 Pulse Ox 98 10/25/24 13:37 Oxygen Delivery Method Room Air 10/25/24 13:37 BMI result Body Mass Index 38.7 Tobacco/Smoking Status: Tobacco use Status Tobacco use date assessed 10/25/24 10/25/24 13:47 Patient Tobacco Use Status Former Tobacco user 10/25/24 13:47 Tobacco use type Cigarette 10/25/24 13:47 e-Cigarette/Vaping Use Never Used 10/25/24 13:47 PHQ-9: PHQ-9 Score PHQ-9: Total score 0 10/25/24 13:47 Depression Screening Interpretation: Negative Thrive Assessment: Date of Thrive Assessment Date Thrive assessed 10/25/24 10/25/24 13:47 Currently or been in a relationship where the following occur: No concerns reported Const General: cooperative, healthy appearing, comfortable and no acute distress Orientation/consciousness: patient oriented x3 [facility] Head: Yes normocephalic Ears: hearing grossly normal bilaterally General nose exam: Normal external nose present Eyes General: appearance normal, both eyes and all related structures Conjunctivae: conjunctivae normal Neck Neck: Yes full ROM and Yes no lymphadenopathy Resp Effort & Inspection: normal respiratory effort Auscultation: clear to auscultation bilaterally, no crackles, no rales, no rhonchi and no wheezes Cardio Rate: regular rate Rhythm: regular rhythm Skin General skin exam: no rashes or lesions noted Neuro General: patient oriented x3 Gait exam (Neuro): Normal gait present Extrem General: Yes normal to inspection, Yes full ROM and No edema Psych Affect: normal affect Attitude: cooperative Insight: Good insight present (Psych) Judgement: Good judgement present (Psych) Coding Level of Care Code Est Pt Level 4 (09161) Diagnoses PAD (peripheral artery disease) I73.9 CVA (cerebral vascular accident) I63.9 Dyslipidemia associated with type 2 diabetes mellitus E11.69; E78.5 Essential hypertension I10 Hypertension type: essential hypertension Type 2 diabetes mellitus without complication, without long-term current use of insulin E11.9 Diabetes mellitus complication status: without complication Diabetes mellitus [facility] insulin use: without buttermaker continuous churn use Hypokalemia E87.6 Assessment & Plan Assessment & Plan (1) PAD (peripheral artery disease): Code(s): I73.9 - Peripheral vascular disease, unspecified Category: Medical Plan: Patient currently following with vascular surgery for treatment of bilateral ankle ulcers. She has been following with Wound Care through vascular surgery as well as VNA services. States her pain has significantly improved in his no longer taking opiates and is using Tylenol and gabapentin only as needed. Continue to follow with vascular surgery. (2) CVA (cerebral vascular accident): Comment: [facility] 09/17/2024 CTA head and neck showed several scattered areas of stenosis in several vessels. MRI brain performed 09/17/2024 revealed a tiny acute infarct in the right coronar radiata Code(s): I63.9 - Cerebral infarction, unspecified Category: Medical Plan: Patient currently on aspirin, atorvastatin and clopidogrel. She has been fo llowed by the neurologist who recommended discontinuing clopidogrel after this last refill. Continue to watch the blood pressure, cholesterol and diabetes. Continue to follow with neurologist (3) Dyslipidemia associated with type 2 diabetes mellitus: Code(s): E11.69 - Type 2 diabetes mellitus with other specified complication; E78.5 - Hyperlipidemia, unspecified Category: Medical Plan: Avoid foods that are high in cholesterol such as red meat, fried foods, eggs and baked goods. Triglyceride goal of less than 150 and LDL goal of less than 70. Continue on atorvastatin 80 (4) HTN (hypertension): Code(s): I10 - Essential (primary) hypertension Category: Medical Qualifiers: Hypertension type: essential hypertension Qualified Code(s): I10 - Essential (primary) hypertension Plan: Continue on current blood pressure medication. Avoid salt intake and encourage healthy diet and regular exercise. (5) DMII (diabetes mellitus, type 2): Code(s): E11.9 - Type 2 diabetes mellitus without complications Category: Medical Qualifiers: Diabetes mellitus complication status: without complication Diabetes mellitus [facility] insulin use: without buttermaker continuous churn use Qualified Code(s): E11.9 - Type 2 diabetes mellitus without complications Plan: Decrease the amount of carbohydrates such as pasta, bread, rice, and potatoes and limit the amount of sweets. Although fruits are generally healthy they should be eaten in moderation as they are still high in sugar. Hemoglobin A1c goal of less than 7%. A1c 7.2% on last labs. Offered multitude of oral options to treat diabetes which were all declined. Patient would like to hold off on treatment this time. Given open ulcers on bilateral lower extremities strongly recommending treatment of diabetes mellitus and she continues to decline. We will follow up in 3 months with repeat A1c. (6) Hypokalemia: Code(s): E87.6 - Hypokalemia Category: Medical Plan: Patient having chronic low potassium starting workup for low potassium levels. Plan This note was constructed using voice recognition software. While every effort has been made to ensure accuracy and inspector timers, still areas may have been included sometimes these areas may affect the content or meeting of the given symptoms. Total time spent caring for the patient today was 30 minutes. This includes time spent before the visit reviewing the chart, time spent during the visit, and time spent after the visit and documentation. Orders: Orders Comprehensive Met. Panel Today Z00.00 - Encounter for general adult medical examination without abnormal findings Aldosterone Today E87.6 - Hypokalemia Magnesium Today E87.6 - Hypokalemia Medications: New clonidine HCl 0.2 mg (2 x 0.1 mg) PO TID 90 tabs 3RF Refilled gabapentin 300 mg PO BEDTIME 90 caps 1RF 90 days aspirin (Adult Aspirin Regimen) 81 mg PO DAILY 90 tabs 2RF 90 days E11.9 - Type 2 diabetes mellitus without complications atorvastatin 80 mg PO BEDTIME 90 tabs 1RF 90 days
[2024-10-25 13:37] VITALS: BP 136/88; PULSE 81; O2SAT 98; BMI 38.7
== END 2024-10-25 14:19 | disposition home or self-care (01) ==
PROVIDERS: PCP Internal Medicine
DX: E11.51 Type 2 diabetes mellitus with diabetic peripheral angiopathy without gangrene (principal); I73.9 Peripheral vascular disease, unspecified; I63.9 Cerebral infarction, unspecified; E11.69 Type 2 diabetes mellitus with other specified complication; E78.5 Hyperlipidemia, unspecified; I10 Essential (primary) hypertension; E87.6 Hypokalemia

== ENCOUNTER → 2024-10-25 13:23 | Outpatient (BNVA) | payer MEDICARE, SELFPAY | PROVIDERS: PCP Internal Medicine | DX: I73.9 Peripheral vascular disease, unspecified (principal); I63.9 Cerebral infarction, unspecified; E11.69 Type 2 diabetes mellitus with other specified complication; E78.5 Hyperlipidemia, unspecified; I10 Essential (primary) hypertension; E87.6 Hypokalemia | CPT/HCPCS: 99212 ==

== ENCOUNTER 2024-10-30 13:55 | Outpatient (AMB) | payer MEDICARE, SELFPAY ==
[2024-10-30 13:56] VITALS: BMI 38.7
--- NOTE | 2024-10-30 13:56 | A.OFFVIS_ITS ---
Vital Signs 10/30/24 13:56 Height 5 ft 7 in Weight 247 lb BMI 38.7 Intake Visit Reasons: Wound Check Intake Note: follow up bilateral LE wound Care. VNA coming monday, monday and monday. States dressings may not be changed daily, its dependant Accompanied by: Daughter Allergies amlodipine Allergy (Intermediate, Verified 10/30/24 14:02) drowsiness, swelling of feet and ankles lisinopril Allergy (Intermediate, Verified 10/30/24 14:02) cough hydralazine Allergy (Verified 10/30/24 14:02) Swelling metformin Adverse Reaction (Verified 10/30/24 14:02) Diarrhea Lisinopril-Hydrochlorothiazide Adverse Reaction (Intermediate, Uncoded 10/30/24 14:02) Leg swelling Metoprolol Tartrate Adverse Reaction (Intermediate, Uncoded 10/30/24 14:02) Leg swelling HPI HPI Wound Check: Details: Miladys is presenting today with her daughter for a follow up wound check. She states she continues to use Vasha (given to her by her VNA) to clean the 2 wounds and she states they seem to be getting better. She denies any pain at the left lower extremity wound but continues to endorse pain in the right lower extremity. She is using Tylenol and Gabapentin (no more narcotics) for pain control, as needed. She denies any new complaints today. [facility] Medical History Hypertension Wound of lower extremity Venous stasis ulcer Chronic ulcer of left ankle Diabetes Hypertension Abnormal Pap smear of cervix Diabetes mellitus Hypertension Renal calculi Diastasis recti Dyslipidemia associated with type 2 diabetes mellitus Abdominal mass Microalbuminuria Renal calculi Morbid obesity Surgical History Hx of prior ablation treatment Family History Father Seizures Mother Seizures Congenital heart disease in adult Hypotension Maternal Grandfather Leukemia Social History Household Members: Family Housing: House Do you presently have visiting nurse or other home services: No Alcohol intake: current Alcohol intake frequency: holidays/special occasions only Alcohol type: wine Patient Tobacco Use Status: Former Tobacco user Tobacco use type: Cigarette e-Cigarette/Vaping Use: Never Used Second Hand Smoke Exposure: No Substance Use Type: Marijuana service: No Current occupational status: employed Current occupational exposures/hazards: No Cognitive needs: No Hearing needs: No Vision needs: No Review of Systems Const Reports as per HPI and Denies weakness ENT Reports Normal hearing present and Denies dizziness Card Reports as per HPI, Denies chest pain, Denies chest pain at rest, Denies chest pain with activity, Denies dyspnea and Denies dyspnea on exertion Resp Reports as per HPI, Denies cough, Denies dyspnea and Denies dyspnea on exertion GI Reports as per HPI, Denies abdominal pain, Denies nausea and Denies vomiting Musc Denies numbness Skin/Breast Reports as per HPI, Denies erythema and Denies wounds Neuro Reports Normal hearing present, Denies dizziness, Denies numbness, Denies Sensory deficit (Neuro) and Denies weakness Psych Reports no additional complaints Endo Reports no additional complaints Physical Exam Vital Signs: BMI result Body Mass Index 38.7 Const General: healthy appearing and no acute distress Orientation/consciousness: patient oriented x3 HEENT Head: Yes normal to inspection Ears: hearing grossly normal bilaterally Mouth: Normal oral and palatal mucosa present Resp Effort & Inspection: normal respiratory effort and able to speak in complete sentences Auscultation: clear to auscultation bilaterally Cardio Jugular venous distension: no JVD Rate: regular rate Rhythm: regular rhythm Heart sounds: S1 normal heart sound present and S2 normal heart sound present Bruits: no abdominal aortic bruits, no carotid bruits, no femoral bruits and no renal bruits Peripheral pulses: Peripheral pulses 2+ throughout GI Inspection: Yes normal to inspection Palpation (GI): No Abdominal aortic bruit present Skin General skin exam: no rashes or lesions noted Wounds: no wounds Hair: normal Neuro General: patient oriented x3 Cranial nerves: Yes Normal hearing present Cognition (Neuro): normal cognition Gait exam (Neuro): Normal gait present Motor exam (neuro): 5/5 motor strength present throughout Sensory Exam: No Sensory deficit (Neuro) Extrem Other: Left lower extremity on the lateral aspect: Small ulcer, slight rounding noted. Wound bed is pink/red. No slough noted. Alginate was stuck to the wound, removed easily with saline. No bleeding or discharge noted. No pain. Right lower extremity: Open ulcer measuring 11x8.5x0.3, decreased from 11.5 x 8.5 x 0.5 cm (last visit 10/17). Patient continues to endorse pain all throughout. No eschar noted in the site. Slight yellow slough noted on dressing, slough noted in perimeters of the wound bed. Wound bed is very pink/red. There was no bleeding noted. We were able to remove a very small amount of slough with a curette/wiping with a damp 4x4. General: Yes normal to inspection, Yes full ROM, Yes capillary refill normal and Yes normal gait Assessment & Plan Assessment & Plan (1) PAD (peripheral artery disease): Code(s): I73.9 - Peripheral vascular disease, unspecified Category: Medical Plan: Miladys is presenting today with her daughter for a 2w wound check. Her left lower extremity wound is doing better, but starting to have some elevated granulation tissue, which we will continue to monitor. We have applied Xeroform with an allevyn dressing. On her right lower extremity, the size has decreased slightly since last visit. There is more slough tissue noted in the wound perimeters and due to pain, we were only able to remove a little with a curette and damp 4x4. We have applied alginate with a foam dressing, abd pad, and Kerlix wrap. She continues with VNA services at home on //. She states she has adequate supplies at home for dressing changes. We will have her follow up with us in 2 weeks. If there are any questions or concerns, please do not hesitate to reach out to our office. Coding Level of Care Code Est Pt Level 3 (12875) Diagnoses PAD (peripheral artery disease) I73.9 Comment wound care
--- OUTSIDE RECORDS SUMMARY | 2024-10-30 16:11 | XMS_ITS | Clinical Summary ---
Author Organization Unknown Care Team Providers Care Theater Projectionist Name Role Phone NOELLE RUSSELL MD, REBECA Unavailable Unavailable CAITLIN RN, ADMISSION NURSE, MARC Unavail able Unavailable YI ALEXIS, CLINICAL RECORDER HELPER SEISMOGRAPH, ELISHA Rosario available Unavailable [employer] FREIGHT CAR CLEANER, OLAMIDE Unavailable Unavailab Estrada PT, DUANE Unavailable Unavailable Payers Payer Name Policy Type Policy Number Effective Date Expira tion Date MEDICARE - [facility] [place] - PDGM [id number] Problems Condition Name Condition Details Condition Category [...] W/O RESID 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-09 00:00: 00 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 10-09 00:00: [...] 2023-10 00:00: 00 08-01 23:59 :00 No [id number] Per instruc tions TWICE A DAY FOR 7 DAYS Per instructio ns TWICE A DAY FOR 7 DAYS (route: oral) Med Classific ation: Anti-Infe ctive Agents ibuprofen 800 mg tablet 2023-10 00:00: 00 08-01 23:59 :00 No [id number] Per instruc tions EVERY 8 HOURS NEEDED Per instructio ns EVERY 8 HOURS NEEDED (route: oral) Med Classific ation: Analgesic , Anti-infl ammatory or Antipyret ic levofloxaci n 750 mg tablet 2023-10 00:00: 00 08-01 23:59 :00 No [id number] Per instruc tions EVERY DAY FOR 7 DAYS Per instructio ns EVERY DAY FOR 7 DAYS (route: oral) Med Classific ation: Anti-Infe ctive Agents methocarbam ol 500 mg tablet 2023-10 00:00: 00 08-01 23:59 :00 No [id number] Per instruc tions THREE TIMES A DAY NEEDED Per instructio ns THREE TIMES A DAY NEEDED (route: oral) Med Classific ation: Locomotor System clonidine HCl 0.2 mg tablet 2023-10 00:00: 00 08-01 23:59 :00 No [id number] Per instruc tions 3 TIMES A DAY Per instructio ns 3 TIMES A DAY (route: oral) Med Classific ation: Cardiovas cular Therapy Agents potassium chloride ER 20 mEq tablet,exte nded release 2023-10 00:00: 00 08-01 23:59 :00 No [id number] Per instruc tions EVERY DAY Per instructio ns EVERY DAY (route: oral) Med Classific ation: Electroly te Balance-N utritiona l Products Santyl 250 unit/gram topical ointment 07-04 00:00: 00 07-17 00:00 :00 No [id number] Per instruc tions Per instructio ns (route: topical) Med Classific ation: Dermatolo gical clonidine HCl 0.1 mg tablet 06-21 00:00: 00 07-17 00:00 :00 No [id number] Per instruc tions TWICE A DAY FOR 90 DAYS Per instructio ns TWICE A DAY FOR 90 DAYS (route: oral) Med Classific ation: Cardiovas cular Therapy Agents albuterol sulfate HFA 90 mcg/actuati on aerosol inhaler 2023-10 00:00: 00 08-01 23:59 :00 No [id number] 2 puff EVERY 6 HOURS 2 puff EVERY 6 HOURS (route: inhalation ) Med Classific ation: Respirato ry Therapy Agents Aspirin Childrens 81 mg chewable tablet 2023-10 00:00: 00 08-01 23:59 :00 No [id number] 1 tablet DAILY 1 tablet DAILY (route: oral) Med Classific ation: Hematolog ical Agents metformin 500 mg tablet 2023-10 00:00: 00 08-01 23:59 :00 No [id number] 1 tablet 2 TIMES DAILY 1 tablet 2 TIMES DAILY (route: oral) Med Classific ation: Endocrine tramadol 50 mg tablet 2023-10 00:00: 08-01 23:59 :00 No [id number] 1 tablet 2 TIMES DAILY 1 tablet 2 TIMES DAILY (route: oral) Med Classific ation: Analgesic , Anti-infl ammatory or Antipyret ic Vitamin D3 25 mcg (1,000 unit) capsule 2023-10 009 00:00: 00 08-01 23:59 :00 No [id number] 1 capsule DAILY 1 capsule DAILY (route: oral) Med Classific ation: Electroly te Balance-N utritiona l Products aspirin 81 mg tablet,claire yed release 2023-10 00:00: 00 Yes [id number] 1 tablet DAILY 1 tablet DAILY (route: oral) Med Classific ation: Hematolog ical Agents betamethaso ne dipropionat e 0.05 % topical ointment 2023-10 00:00: 00 Yes [id number] Per instruc tions DAILY Per instructio ns DAILY (route: topical) Med Classific ation: Dermatolo gical carvedilol 6.25 mg tablet 2023-10 00:00: 00 Yes [id number] 1 tablet 2 TIMES DAILY 1 tablet 2 TIMES DAILY (route: oral) Med Classific ation: Cardiovas cular Therapy Agents clonidine HCl 0.2 mg tablet 2023-10 00:00: 00 Yes [id number] 1 tablet 3 TIMES DAILY 1 tablet 3 TIMES DAILY (route: oral) Med Classific ation: Cardiovas cular Therapy Agents losartan 50 mg tablet 2023-10 00:00: 00 Yes [id number] 1 tablet DAILY 1 tablet DAILY (route: oral) Med Classific ation: Cardiovas cular Therapy Agents naloxone 4 mg/actuatio n nasal spray 2023-10 00:00: 00 Yes [id number] 1 spray DIRECTED 1 spray DIRECTED (route: nasal) Med Classific ation: Antidotes and other Reversal Agents tramadol 50 mg tablet 2023-10 00:00: 00 10-14 23:59 :00 No [id number] 1 tablet EVERY 6 HOURS 1 tablet EVERY 6 HOURS (route: oral) Med Classific ation: Analgesic , Anti-infl ammatory or Antipyret ic methocarbam ol 500 mg tablet 2023-10 00:00: 00 10-14 23:59 :00 No [id number] 1 tablet 3 TIMES DAILY 1 tablet 3 TIMES DAILY (route: oral) Med Classific ation: Locomotor System gabapentin 100 mg capsule 2023-10 00:00: 00 Yes [id number] 1 capsule BEDTIME 1 capsule BEDTIME (route: oral) Med Classific ation: Central Nervous System Agents gentamicin 0.1 % topical ointment 2023-10 00:00: 00 10-14 23:59 :00 No [id number] Per instruc tions DAILY Per instructio ns DAILY (route: topical) Med Classific ation: Dermatolo gical cephalexin 500 mg capsule 2023-10 00:00: 00 10-14 23:59 :00 No [id number] 500 mg 4 TIMES DAILY 500 mg 4 TIMES DAILY (route: oral) Med Classific ation: Anti-Infe ctive Agents aspirin 81 mg tablet,claire yed release 2023-10 00:00: 00 Yes [id number] 1 tablet DAILY 1 tablet DAILY (route: oral) Med Classific ation: Hematolog ical Agents atorvastati n 80 mg tablet 2023-10 00:00: 00 Yes [id number] 1 tablet BEDTIME 1 tablet BEDTIME (route: oral) Med Classific ation: Cardiovas cular Therapy Agents betamethaso ne dipropionat e 0.05 % topical ointment 2023-10 00:00: 00 Yes [id number] Per instruc tions DAILY Per instructio ns DAILY (route: topical) Med Classific ation: Dermatolo gical carvedilol 6.25 mg tablet 2023-10 00:00: 00 Yes [id number] 1 tablet 2 TIMES DAILY 1 tablet 2 TIMES DAILY (route: oral) Med Classific ation: Cardiovas cular Therapy Agents clonidine HCl 0.2 mg tablet 2023-10 00:00: 00 Yes [id number] 1 tablet 3 TIMES DAILY 1 tablet 3 TIMES DAILY (route: oral) Med Classific ation: Cardiovas cular Therapy Agents clopidogrel 75 mg tablet 2023-10 00:00: 00 Yes [id number] 1 tablet DAILY 1 tablet DAILY (route: oral) Med Classific ation: Hematolog ical Agents gabapentin 300 mg capsule 2023-10 00:00: 00 Yes [id number] 1 capsule 2 TIMES DAILY 1 capsule 2 TIMES DAILY (route: oral) Med Classific ation: Central Nervous System Agents losartan 50 mg tablet 2023-10 00:00: 00 Yes [id number] 0.5 tablet 2 TIMES DAILY 0.5 tablet 2 TIMES DAILY (route: oral) Med Classific ation: Cardiovas cular Therapy Agents methocarbam ol 500 mg tablet 2023-10 00:00: 00 10-14 23:59 :00 No [id number] 1 tablet 3 TIMES DAILY 1 tablet 3 TIMES DAILY (route: oral) Med Classific ation: Locomotor System morphine 15 mg immediate release tablet 2023-10 00:00: 00 10-14 23:59 :00 No [id number] 1 tablet EVERY 12 HOURS 1 tablet EVERY 12 HOURS (route: oral) Med Classific ation: Analgesic , Anti-infl ammatory or Antipyret ic naloxone 4 mg/actuatio n nasal spray 2023-10 00:00: 00 Yes [id number] 1 spray O2 - PRN 1 spray O 2 - PRN (route: nasal) Med Classific ation: Antidotes and other Reversal Agents oxycodone 5 mg tablet 2023-10 00:00: 00 10-14 23:59 :00 No [id number] 1 tablet EVERY 6 HOURS 1 tablet EVERY 6 HOURS (route: oral) Med Classific ation: Analgesic , Anti-infl ammatory or Antipyret ic Vital Signs Vital Name Observation Time Observation Value Commen ts Temperature 2024-10-28 10:38:00.000 99.1 [degF] Temperature 2024-10-25 10:13:00.000 97.2 [degF] Temperature 2024-10-24 13:43:00.000 98.1 [degF] Temperature 2024-10-23 11:13:00.000 98.1 [degF] Temperature 2024-10-21 11:48:00.000 97 [degF] Temperature 2024-10-18 09:40:00.000 97.4 [degF] Temperature 2024-10-16 11:19:00.000 98.9 [degF] Temperature 2024-10-16 09:40:00.000 98.2 [degF] Temperature 2024-10-14 11:17:00.000 97.8 [degF] Temperature 2024-10-11 10:46:00.000 97.6 [degF] Temperature 2024-10-09 14:10:00.000 97.6 [degF] Temperature 2024-10-07 10:07:00.000 97.3 [degF] Temperature 2024-10-04 09:28:00.000 97.3 [degF] Pulse 2024-10-28 10:38:00.000 71 /min Pulse 2024-10-25 10:13:00.000 60 /min Pulse 2024-10-24 13:43:00.000 58 /min Pulse 2024-10-23 11:13:00.000 66 /min Pulse 2024-10-21 11:48:00.000 70 /min Pulse 2024-10-18 09:40:00.000 58 /min Pulse 2024-10-16 11:19:00.000 71 /min Pulse 2024-10-16 09:40:00.000 78 /min Pulse 2024-10-14 11:17:00.000 60 /min Pulse 2024-10-11 10:46:00.000 67 /min Pulse 2024-10-09 14:10:00.000 82 /min Pulse 2024-10-07 10:07:00.000 80 /min Pulse 2024-10-04 09:28:00.000 66 /min O2 Saturation (%) 2024-10-28 10:38:00.000 97 % O2 Saturation (%) 2024-10-25 10:13:00.000 99 % O2 Saturation (%) 2024-10-24 13:43:00.000 100 % O2 Saturation (%) 2024-10-23 11:13:00.000 99 % O2 Saturation (%) 2024-10-21 11:48:00.000 97 % O2 Saturation (%) 2024-10-18 09:40:00.000 96 % O2 Saturation (%) 2024-10-16 11:19:00.000 98 % O2 Saturation (%) 2024-10-16 09:40:00.000 98 % O2 Saturation (%) 2024-10-14 11:17:00.000 97 % O2 Saturation (%) 2024-10-11 10:46:00.000 99 % O2 Saturation (%) 2024-10-09 14:10:00.000 98 % O2 Saturation (%) 2024-10-07 10:07:00.000 98 % O2 Saturation (%) 2024-10-04 09:28:00.000 97 % Respirations 2024-10-28 10:38:00.000 18 /min Respirations 2024-10-25 10:13:00.000 18 /min Respirations 2024-10-24 13:43:00.000 19 /min Respirations 2024-10-23 11:13:00.000 18 /min Respirations 2024-10-21 11:48:00.000 18 /min Respirations 2024-10-18 09:40:00.000 18 /min Respirations 2024-10-16 11:19:00.000 18 /min Respirations 2024-10-16 09:40:00.000 16 /min Respirations 2024-10-14 11:17:00.000 18 /min Respirations 2024-10-11 10:46:00.000 18 /min Systolic Blood Pressure 2024-10-28 10:38:00.000 152 mm [Hg] Systolic Blood Pressure 2024-10-25 10:13:00.000 142 mm [Hg] Systolic Blood Pressure 2024-10-24 13:43:00.000 130 mm [Hg] Systolic Blood Pressure 2024-10-23 11:13:00.000 140 mm [Hg] Systolic Blood Pressure 2024-10-21 11:48:00.000 146 mm [Hg] Systolic Blood Pressure 2024-10-18 09:40:00.000 150 mm [Hg] Systolic Blood Pressure 2024-10-16 11:19:00.000 150 mm [Hg] Systolic Blood Pressure 2024-10-16 09:40:00.000 138 mm [Hg] Systolic Blood Pressure 2024-10-14 11:17:00.000 165 mm [Hg] Systolic Blood Pressure 2024-10-11 10:46:00.000 148 mm [Hg] Systolic Blood Pressure 2024-10-09 14:10:00.000 152 mm [Hg] Systolic Blood Pressure 2024-10-07 10:07:00.000 146 mm [Hg] Systolic Blood Pressure 2024-10-04 09:28:00.000 136 mm [Hg] Diastolic Blood Pressure 2024-10-28 10:38:00.000 88 mm [Hg] Diastolic Blood Pressure 2024-10-25 10:13:00.000 80 mm [Hg] Diastolic Blood Pressure 2024-10-24 13:43:00.000 90 mm [Hg] Diastolic Blood Pressure 2024-10-23 11:13:00.000 88 mm [Hg] Diastolic Blood Pressure 2024-10-21 11:48:00.000 74 mm [Hg] Diastolic Blood Pressure 2024-10-18 09:40:00.000 90 mm [Hg] Diastolic Blood Pressure 2024-10-16 11:19:00.000 [...] CVA, RISK FACTORS, AND METHODS TO MANAGE GROUP HOME EFFECTS OF CVA. [code = SKILLED NURSE TO INSTRUCT PATIENT/CAREGIVER ON WARNING SIGNS OF CVA, RISK FACTORS, AND METHODS TO MANAGE PROFESSOR OF PHILOSOPHY EFFECTS OF CVA.] Future Scheduled Test SKILLED [...] MAINTAIN SITUATIONAL AWARENESS AND WILL NOTIFY CLINICAL EXHAUST AND MUFFLER REPAIRER AND PHYSICIAN/PROVIDER WITH ANY CHANGE IN CONDITION. [code = SKILLED NURSE TO PERFORM ENVIRONMENTAL SAFETY RISK ASSESSMENT AND FALL RISK ASSESSMENT AND PROVIDE INSTRUCTION TO IMPLEMENT ENVIRONMENTAL SAFETY AND FALL PREVENTION STRATEGIES THROUGHOUT THE CERTIFICATION PERIOD. SKILLED NURSE WILL MAINTAIN SITUATIONAL AWARENESS AND WILL NOTIFY CLINICAL EXHAUST AND MUFFLER REPAIRER AND PHYSICIAN/PROVIDER WITH ANY CHANGE IN CONDITION.] [...] CARE WILL BE ESTABLISHED THAT MEETS PATIENT'S NURSING HOME NEEDS AND INCLUDES PATIENT GOAL FOR [...] 2024 by MARC TUCKER RN, ADMISSION NURSE]:</paragraph><paragraph>SNV : 10/28/24 ABNORMAL VITALS : ALL VITALS WITHIN SET PARAMETERS FALL: NONE ABNORMAL PHYSICAL ASSESSMENT : ALL SYSTEMS WITHIN NORMAL LIMITS MEDICATION CHANGES : NONE OBSERVATION AND ASSESSMENT PROVIDED : PT ALERT AND ORIENTATED X3, REPORTS 3/10 PAIN TO R FO9T WOUND. PT REPORTS CHANGING HER DRESSING YESTERDAY AND WAS HAPPY PTS CHILDREN DONT WANT TO HELP WITH DRESSING CHANGE. PT DENIES ANY FEVER OR CHILLS, NAUSEA OR VOMITING DIARRHEA. PTS WOUND CARE COMPLETED WITH SUPPLIES IN THE HOME AND PT TOLERATED WELL. SUPPLIES ORDER DUE TO THE NEW ORDER. LS CLEAR NO WHEEZING OR CRACKLES, BSX4 LBM 10/28/24. INTERVENTIONS NEEDED AT NEXT VISIT : WOUND ASSESSMENT AND CARE COMMUNICATION WITH MD : TO UPDATE ON NEW ORDERS FROM VASCULAR NEXT MD APPOINTMENT: VASCULAR 10/30/24 PT INSTRUCTED TO CALL [facility] WITH ANY QUESTIONS OR CONCERNS AND OR CHANGES IN CONDITION. PT VERBALIZED UNDERSTANDING</paragraph> <paragraph>[Visit Date: 2024 by ANGÉLICA BOWLING LPN]:</paragraph><paragraph>SNV 10/25 ABNORMAL VITALS: WITHIN ESTABLISHED PARAMETERS FALLS: NO FALLS OBSERVATION AND ASSESSMENT PROVIDED: PT ALERT ORIENTEDX3, COOPERATIVE DURING VISIT. PT HAD GOOD VISIT WITH NEURO THIS AM AND DISCUSSED D/C PLAVIX AFTER CURRENT RX IS FINISHED. PT DENIES ANY NEW OR WORSENING SYMPTOMS. WOUND ON LLE MUCH IMPROVED, RLE WITH SOME IMPROVEMENT ASWELL. VSS, AFEBRILE. NO ISSUES WITH BOWELS OR BLADDER. APPETITE ADEQUATE. WOUND CARE PROVIDED TO BLE. PATIENT TOLERATED WELL. NO SIGNS OR SYMPTOMS OF INFECTION OBSERVED EDUCATION: HIGH PROTEIN DIET FOR OPTIMAL WOUND HEALING, HYDRATION REQUIREMENTS INTERVENTIONS NEEDED AT NEXT VISIT: ASSESSMENT, TEACHING WOUNDCARE NEXT MD APPOINTMENT: NEURO TODAY PT AND CAREGIVER INSTRUCTED TO CALL [facility] WITH ANY QUESTIONS OR CONCERNS AND/OR CHANGES IN CONDITION, STATE UNDERSTANDING</paragraph> Encounters Start Date/Time End Date/Time Encounter Type Admission Type Attending Clinicians Care Facility Care Department Encounter ID Discharge Date Discharge Status Discharge Condition Discharge Reason Percent Goals Met 2024-08-04 00:00:00 2024-12-01 00:00:00 Outpatient RECERTIFIC ATELISHA RAMOS [facility] [id number] 35.48
--- OUTSIDE RECORDS SUMMARY | 2024-10-30 16:11 | XMS_ITS | Clinical Summary ---
Author Organization Unknown Care Team Providers Care Irrigation System Operator Name Role Phone NOELLE RUSSELL MD, REBECA Unavailable Unavailable CAITLIN RN, ADMISSION NURSE, MARC Unavail able Unavailable YI ALEXIS, CLINICAL 5TH GRADE TEACHER, ELISHA Rosario available Unavailable [place] RECORDER, OLAMIDE Unavailable Unavailab Estrada PT, DUANE Unavailable Unavailable Payers Payer Name Policy Type Policy Number Effective Date Expira tion Date MEDICARE - 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 10-09 00:00: [...] 2023-10 00:00: 00 08-01 23:59 :00 No [id number] Per instruc tions TWICE A DAY FOR 7 DAYS Per instructio ns TWICE A DAY FOR 7 DAYS (route: oral) Med Classific ation: Anti-Infe ctive Agents ibuprofen 800 mg tablet 2023-10 00:00: 00 08-01 23:59 :00 No [id number] Per instruc tions EVERY 8 HOURS NEEDED Per instructio ns EVERY 8 HOURS NEEDED (route: oral) Med Classific ation: Analgesic , Anti-infl ammatory or Antipyret ic levofloxaci n 750 mg tablet 2023-10 00:00: 00 08-01 23:59 :00 No [id number] Per instruc tions EVERY DAY FOR 7 DAYS Per instructio ns EVERY DAY FOR 7 DAYS (route: oral) Med Classific ation: Anti-Infe ctive Agents methocarbam ol 500 mg tablet 2023-10 00:00: 00 08-01 23:59 :00 No [id number] Per instruc tions THREE TIMES A DAY NEEDED Per instructio ns THREE TIMES A DAY NEEDED (route: oral) Med Classific ation: Locomotor System clonidine HCl 0.2 mg tablet 2023-10 00:00: 00 08-01 23:59 :00 No [id number] Per instruc tions 3 TIMES A DAY Per instructio ns 3 TIMES A DAY (route: oral) Med Classific ation: Cardiovas cular Therapy Agents potassium chloride ER 20 mEq tablet,exte nded release 2023-10 00:00: 00 08-01 23:59 :00 No [id number] Per instruc tions EVERY DAY Per instructio ns EVERY DAY (route: oral) Med Classific ation: Electroly te Balance-N utritiona l Products Santyl 250 unit/gram topical ointment 07-04 00:00: 00 07-17 00:00 :00 No [id number] Per instruc tions Per instructio ns (route: topical) Med Classific ation: Dermatolo gical clonidine HCl 0.1 mg tablet 06-21 00:00: 00 07-17 00:00 :00 No [id number] Per instruc tions TWICE A DAY FOR 90 DAYS Per instructio ns TWICE A DAY FOR 90 DAYS (route: oral) Med Classific ation: Cardiovas cular Therapy Agents albuterol sulfate HFA 90 mcg/actuati on aerosol inhaler 2023-10 00:00: 00 08-01 23:59 :00 No [id number] 2 puff EVERY 6 HOURS 2 puff EVERY 6 HOURS (route: inhalation ) Med Classific ation: Respirato ry Therapy Agents Aspirin Childrens 81 mg chewable tablet 2023-10 00:00: 00 08-01 23:59 :00 No [id number] 1 tablet DAILY 1 tablet DAILY (route: oral) Med Classific ation: Hematolog ical Agents metformin 500 mg tablet 2023-10 00:00: 00 08-01 23:59 :00 No [id number] 1 tablet 2 TIMES DAILY 1 tablet 2 TIMES DAILY (route: oral) Med Classific ation: Endocrine tramadol 50 mg tablet 2023-10 00:00: 08-01 23:59 :00 No [id number] 1 tablet 2 TIMES DAILY 1 tablet 2 TIMES DAILY (route: oral) Med Classific ation: Analgesic , Anti-infl ammatory or Antipyret ic Vitamin D3 25 mcg (1,000 unit) capsule 2023-10 009 00:00: 00 08-01 23:59 :00 No [id number] 1 capsule DAILY 1 capsule DAILY (route: oral) Med Classific ation: Electroly te Balance-N utritiona l Products aspirin 81 mg tablet,claire yed release 2023-10 00:00: 00 Yes [id number] 1 tablet DAILY 1 tablet DAILY (route: oral) Med Classific ation: Hematolog ical Agents betamethaso ne dipropionat e 0.05 % topical ointment 2023-10 00:00: 00 Yes [id number] Per instruc tions DAILY Per instructio ns DAILY (route: topical) Med Classific ation: Dermatolo gical carvedilol 6.25 mg tablet 2023-10 00:00: 00 Yes [id number] 1 tablet 2 TIMES DAILY 1 tablet 2 TIMES DAILY (route: oral) Med Classific ation: Cardiovas cular Therapy Agents clonidine HCl 0.2 mg tablet 2023-10 00:00: 00 Yes [id number] 1 tablet 3 TIMES DAILY 1 tablet 3 TIMES DAILY (route: oral) Med Classific ation: Cardiovas cular Therapy Agents losartan 50 mg tablet 2023-10 00:00: 00 Yes [id number] 1 tablet DAILY 1 tablet DAILY (route: oral) Med Classific ation: Cardiovas cular Therapy Agents naloxone 4 mg/actuatio n nasal spray 2023-10 00:00: 00 Yes [id number] 1 spray DIRECTED 1 spray DIRECTED (route: nasal) Med Classific ation: Antidotes and other Reversal Agents tramadol 50 mg tablet 2023-10 00:00: 00 10-14 23:59 :00 No [id number] 1 tablet EVERY 6 HOURS 1 tablet EVERY 6 HOURS (route: oral) Med Classific ation: Analgesic , Anti-infl ammatory or Antipyret ic methocarbam ol 500 mg tablet 2023-10 00:00: 00 10-14 23:59 :00 No [id number] 1 tablet 3 TIMES DAILY 1 tablet 3 TIMES DAILY (route: oral) Med Classific ation: Locomotor System gabapentin 100 mg capsule 2023-10 00:00: 00 Yes [id number] 1 capsule BEDTIME 1 capsule BEDTIME (route: oral) Med Classific ation: Central Nervous System Agents gentamicin 0.1 % topical ointment 2023-10 00:00: 00 10-14 23:59 :00 No [id number] Per instruc tions DAILY Per instructio ns DAILY (route: topical) Med Classific ation: Dermatolo gical cephalexin 500 mg capsule 2023-10 00:00: 00 10-14 23:59 :00 No [id number] 500 mg 4 TIMES DAILY 500 mg 4 TIMES DAILY (route: oral) Med Classific ation: Anti-Infe ctive Agents aspirin 81 mg tablet,claire yed release 2023-10 00:00: 00 Yes [id number] 1 tablet DAILY 1 tablet DAILY (route: oral) Med Classific ation: Hematolog ical Agents atorvastati n 80 mg tablet 2023-10 00:00: 00 Yes [id number] 1 tablet BEDTIME 1 tablet BEDTIME (route: oral) Med Classific ation: Cardiovas cular Therapy Agents betamethaso ne dipropionat e 0.05 % topical ointment 2023-10 00:00: 00 Yes [id number] Per instruc tions DAILY Per instructio ns DAILY (route: topical) Med Classific ation: Dermatolo gical carvedilol 6.25 mg tablet 2023-10 00:00: 00 Yes [id number] 1 tablet 2 TIMES DAILY 1 tablet 2 TIMES DAILY (route: oral) Med Classific ation: Cardiovas cular Therapy Agents clonidine HCl 0.2 mg tablet 2023-10 00:00: 00 Yes [id number] 1 tablet 3 TIMES DAILY 1 tablet 3 TIMES DAILY (route: oral) Med Classific ation: Cardiovas cular Therapy Agents clopidogrel 75 mg tablet 2023-10 00:00: 00 Yes [id number] 1 tablet DAILY 1 tablet DAILY (route: oral) Med Classific ation: Hematolog ical Agents gabapentin 300 mg capsule 2023-10 00:00: 00 Yes [id number] 1 capsule 2 TIMES DAILY 1 capsule 2 TIMES DAILY (route: oral) Med Classific ation: Central Nervous System Agents losartan 50 mg tablet 2023-10 00:00: 00 Yes [id number] 0.5 tablet 2 TIMES DAILY 0.5 tablet 2 TIMES DAILY (route: oral) Med Classific ation: Cardiovas cular Therapy Agents methocarbam ol 500 mg tablet 2023-10 00:00: 00 10-14 23:59 :00 No [id number] 1 tablet 3 TIMES DAILY 1 tablet 3 TIMES DAILY (route: oral) Med Classific ation: Locomotor System morphine 15 mg immediate release tablet 2023-10 00:00: 00 10-14 23:59 :00 No [id number] 1 tablet EVERY 12 HOURS 1 tablet EVERY 12 HOURS (route: oral) Med Classific ation: Analgesic , Anti-infl ammatory or Antipyret ic naloxone 4 mg/actuatio n nasal spray 2023-10 00:00: 00 Yes [id number] 1 spray O2 - PRN 1 spray O 2 - PRN (route: nasal) Med Classific ation: Antidotes and other Reversal Agents oxycodone 5 mg tablet 2023-10 00:00: 00 10-14 23:59 :00 No [id number] 1 tablet EVERY 6 HOURS 1 tablet [...] CVA, RISK FACTORS, AND METHODS TO MANAGE ALF EFFECTS OF CVA. [code = SKILLED NURSE TO INSTRUCT PATIENT/CAREGIVER ON WARNING SIGNS OF CVA, RISK FACTORS, AND METHODS TO MANAGE GRAIN MILLER HELPER EFFECTS OF CVA.] Future Scheduled Test SKILLED [...] MAINTAIN SITUATIONAL AWARENESS AND WILL NOTIFY CLINICAL CONSTRUCTION CARPENTERS HELPER AND PHYSICIAN/PROVIDER WITH ANY CHANGE IN CONDITION. [code = SKILLED NURSE TO PERFORM ENVIRONMENTAL SAFETY RISK ASSESSMENT AND FALL RISK ASSESSMENT AND PROVIDE INSTRUCTION TO IMPLEMENT ENVIRONMENTAL SAFETY AND FALL PREVENTION STRATEGIES THROUGHOUT THE CERTIFICATION PERIOD. SKILLED NURSE WILL MAINTAIN SITUATIONAL AWARENESS AND WILL NOTIFY CLINICAL CONSTRUCTION CARPENTERS HELPER AND PHYSICIAN/PROVIDER WITH ANY CHANGE IN CONDITION.] [...] CARE WILL BE ESTABLISHED THAT MEETS PATIENT'S [facility] NEEDS AND INCLUDES PATIENT GOAL FOR HOME [...] 00:00:00 2024-12-01 00:00:00 Outpatient RECERTIFIC ATELISHA RAMOS [facility] [id number] 35.48
== END 2024-10-30 14:39 | disposition home or self-care (01) ==
PROVIDERS: PCP Internal Medicine; Visit Provider Physician Assistant Surgical
DX: I73.9 Peripheral vascular disease, unspecified (principal)
CPT/HCPCS: 99213

== ENCOUNTER → 2024-10-30 13:55 | Outpatient (BNVA) | payer MEDICARE, SELFPAY | PROVIDERS: PCP Internal Medicine; Visit Provider Physician Assistant Surgical | DX: E11.621 Type 2 diabetes mellitus with foot ulcer (principal); E11.51 Type 2 diabetes mellitus with diabetic peripheral angiopathy without gangrene; L97.829 Non-pressure chronic ulcer of other part of left lower leg with unspecified severity | CPT/HCPCS: 99212 ==

== ENCOUNTER → 2024-11-14 13:37 | Outpatient (BNVA) | payer MEDICARE, OTHER, SELFPAY | PROVIDERS: PCP Internal Medicine; Visit Provider Physician Assistant Surgical | DX: I73.9 Peripheral vascular disease, unspecified (principal) | CPT/HCPCS: 99212 ==

== ENCOUNTER → 2024-11-14 13:37 | Outpatient (AMB) | payer MEDICARE, MEDICAID, SELFPAY ==
--- NOTE | 2024-11-14 13:39 | A.OFFVIS_ITS ---
Vital Signs 11/14/24 13:39 Height 5 ft 7 in Weight 247 lb BMI 38.7 Intake Visit Reasons: 2 week follow up; wound check Intake Note: follow up bilateral LE wounds. VNA Monday, Monday and Monday. Pt states she has some new painful sensations on the right calf with VV. Accompanied by: Daughter Allergies amlodipine Allergy (Intermediate, Verified 11/14/24 13:55) drowsiness, swelling of feet and ankles lisinopril Allergy (Intermediate, Verified 11/14/24 13:55) cough hydralazine Allergy (Verified 11/14/24 13:55) Swelling metformin Adverse Reaction (Verified 11/14/24 13:55) Diarrhea Lisinopril-Hydrochlorothiazide Adverse Reaction (Intermediate, Uncoded 11/14/24 13:55) Leg swelling Metoprolol Tartrate Adverse Reaction (Intermediate, Uncoded 11/14/24 13:55) Leg swelling HPI HPI 2 week follow up; wound check: Details: Miladys is presenting today on a 2 week wound check follow up. She continue the VNA services 3 days a week, whom are performing all the dressing changes. She states she thinks that the wound on her right lower leg is getting a little bit better. She continues to endorse significant pain in the area of the wound. She states her left lower extremity wound is getting better and there is no pain at that site. [facility] Medical History Hypertension Wound of lower extremity Venous stasis ulcer Chronic ulcer of left ankle Diabetes Hypertension Abnormal Pap smear of cervix Diabetes mellitus Hypertension Renal calculi Diastasis recti Dyslipidemia associated with type 2 diabetes mellitus Abdominal mass Microalbuminuria Renal calculi Morbid obesity Surgical History Hx of prior ablation treatment Family History Father Seizures Mother Seizures Congenital heart disease in adult Hypotension Maternal Grandfather Leukemia Social History Household Members: Family Housing: House Do you presently have visiting nurse or other home services: No Alcohol intake: current Alcohol intake frequency: holidays/special occasions only Alcohol type: wine Patient Tobacco Use Status: Former Tobacco user Tobacco use type: Cigarette e-Cigarette/Vaping Use: Never Used Second Hand Smoke Exposure: No Substance Use Type: Marijuana service: No Current occupational status: employed Current occupational exposures/hazards: No Cognitive needs: No Hearing needs: No Vision needs: No Review of Systems Const Reports as per HPI and Denies weakness ENT Reports Normal hearing present and Denies dizziness Card Reports as per HPI, Denies chest pain, Denies chest pain at rest, Denies chest pain with activity, Denies dyspnea and Denies dyspnea on exertion Resp Reports as per HPI, Denies cough, Denies dyspnea and Denies dyspnea on exertion GI Reports as per HPI, Denies abdominal pain, Denies nausea and Denies vomiting Musc Denies numbness Skin/Breast Reports as per HPI, Denies erythema and Denies wounds Neuro Reports Normal hearing present, Denies dizziness, Denies numbness, Denies Sensory deficit (Neuro) and Denies weakness Psych Reports no additional complaints Endo Reports no additional complaints Physical Exam Vital Signs: BMI result Body Mass Index 38.7 Const General: healthy appearing and no acute distress Orientation/consciousness: patient oriented x3 HEENT Head: Yes normal to inspection Ears: hearing grossly normal bilaterally Mouth: Normal oral and palatal mucosa present Resp Effort & Inspection: normal respiratory effort and able to speak in complete sentences Auscultation: clear to auscultation bilaterally Cardio Jugular venous distension: no JVD Rate: regular rate Rhythm: regular rhythm Heart sounds: S1 normal heart sound present and S2 normal heart sound present Bruits: no abdominal aortic bruits, no carotid bruits, no femoral bruits and no renal bruits Peripheral pulses: Peripheral pulses 2+ throughout GI Inspection: Yes normal to inspection Palpation (GI): No Abdominal aortic bruit present Skin General skin exam: no rashes or lesions noted Wounds: no wounds Hair: normal Neuro General: patient oriented x3 Cranial nerves: Yes Normal hearing present Cognition (Neuro): normal cognition Gait exam (Neuro): Normal gait present Motor exam (neuro): 5/5 motor strength present throughout Sensory Exam: No Sensory deficit (Neuro) Extrem Other: Left lower extremity wound: not measured today. Small ulceration and rounding noted in the middle of the wound. Wound edges are pink. No slough noted. Right lower extremity wound: open ulcer measuring 11.5x7.5x0.3, changed from last visit on 10/30 with measurements of 11x8.5x0.3. The length is slightly increased but the width is decreased. There was yellow slough noted around the wound edges, unable to debride due to pain. Pain noted all throughout. Triad cream stuck on the edges, unable to remove. Wound bed is dark pink/red. General: Yes normal to inspection, Yes full ROM, Yes capillary refill normal and Yes normal gait Assessment & Plan Assessment & Plan (1) PAD (peripheral artery disease): Code(s): I73.9 - Peripheral vascular disease, unspecified Category: Medical Plan Miladys is presenting today for a 2w wound check. VNA nursing 3/week are perform ing dressing changes. The wounds are slowly getting better. We will continue with alginate dressing with foam pad and Kerlix wrap on the right lower extremity. It is best to avoid any adhesives, which have been drying out her skin and removing some of the new skin. On the left lower extremity we will continue with Xeroform, foam pad, and kerlix wrap. I wrote these instructions for the VNA services. I also asked them to order Lidocaine patches for the back of her calf, which she states has been starting to bother her, she believes they are varicose veins. We discussed using pillows with soft pillowcases/sheets for protection/support. She states she has most supplies at home but was running low on Alginate. We gave her some for the dressing change tomorrow with VNA. She states VNA is measuring the sites every visit as well. We will have her follow up with us in 2 weeks. If there are any questions or concerns, please do not hesitate to reach out to us. Coding Level of Care Code Est Pt Level 4 (42915) Diagnoses PAD (peripheral artery disease) I73.9
== END | disposition home or self-care (01) ==
PROVIDERS: PCP Internal Medicine; Visit Provider Physician Assistant Surgical
CPT/HCPCS: 99214

== ENCOUNTER 2024-11-28 14:32 | Outpatient (AMB) | payer MEDICARE, MEDICAID, SELFPAY ==
[2024-11-28 14:42] VITALS: BMI 38.7
--- NOTE | 2024-11-28 14:42 | A.OFFVIS_ITS ---
Vital Signs 11/28/24 14:42 Height 5 ft 7 in Weight 247 lb BMI 38.7 Intake Visit Reasons: 2 week follow up- wound check Intake Note: follow up for bilateral LE wounds, pt has VNA 3 times a week. Pt states left LE wound is looking better per pt, the Right LE is not doing better, has heavy drainage but is sticking to the ABD pad. Pt states she has no more PT and weined herself off pain meds. Also pt brought her own vashe solution and sterile water. Pain has been steadily reducing. Accompanied by: Daughter Allergies amlodipine Allergy (Intermediate, Verified 11/28/24 14:46) drowsiness, swelling of feet and ankles lisinopril Allergy (Intermediate, Verified 11/28/24 14:46) cough hydralazine Allergy (Verified 11/28/24 14:46) Swelling metformin Adverse Reaction (Verified 11/28/24 14:46) Diarrhea Lisinopril-Hydrochlorothiazide Adverse Reaction (Intermediate, Uncoded 11/28/24 14:46) Leg swelling Metoprolol Tartrate Adverse Reaction (Intermediate, Uncoded 11/28/24 14:46) Leg swelling HPI HPI 2 week follow up- wound check: Details: Miladys is presenting today for a 2 week follow up for wound check. She continues to have VNA services on Monday, Monday, and Monday. She was just recently discharged from physical therapy yesterday, after completing 8 weeks. She states she thinks the wounds were getting a little bit better. She states that the right lower extremity wound does not painful. [facility] Medical History Hypertension Wound of lower extremity Venous stasis ulcer Chronic ulcer of left ankle Diabetes Hypertension Abnormal Pap smear of cervix Diabetes mellitus Hypertension Renal calculi Diastasis recti Dyslipidemia associated with type 2 diabetes mellitus Abdominal mass Microalbuminuria Renal calculi Morbid obesity Surgical History Hx of prior ablation treatment Family History Father Seizures Mother Seizures Congenital heart disease in adult Hypotension Maternal Grandfather Leukemia Social History Household Members: Family Housing: House Do you presently have visiting nurse or other home services: No Alcohol intake: current Alcohol intake frequency: holidays/special occasions only Alcohol type: wine Patient Tobacco Use Status: Former Tobacco user Tobacco use type: Cigarette e-Cigarette/Vaping Use: Never Used Second Hand Smoke Exposure: No Substance Use Type: Marijuana service: No Current occupational status: employed Current occupational exposures/hazards: No Cognitive needs: No Hearing needs: No Vision needs: No Review of Systems Const Reports as per HPI and Denies weakness ENT Reports Normal hearing present and Denies dizziness Card Reports as per HPI, Denies chest pain, Denies chest pain at rest, Denies chest pain with activity, Denies dyspnea and Denies dyspnea on exertion Resp Reports as per HPI, Denies cough, Denies dyspnea and Denies dyspnea on exertion GI Reports as per HPI, Denies abdominal pain, Denies nausea and Denies vomiting Musc Denies numbness Skin/Breast Reports as per HPI, Denies erythema and Denies wounds Neuro Reports Normal hearing present, Denies dizziness, Denies numbness, Denies Sensory deficit (Neuro) and Denies weakness Psych Reports no additional complaints Endo Reports no additional complaints Physical Exam Vital Signs: BMI result Body Mass Index 38.7 Const General: healthy appearing and no acute distress Orientation/consciousness: patient oriented x3 HEENT Head: Yes normal to inspection Ears: hearing grossly normal bilaterally Mouth: Normal oral and palatal mucosa present Resp Effort & Inspection: normal respiratory effort and able to speak in complete sentences Auscultation: clear to auscultation bilaterally Cardio Jugular venous distension: no JVD Rate: regular rate Rhythm: regular rhythm Heart sounds: S1 normal heart sound present and S2 normal heart sound present Bruits: no abdominal aortic bruits, no carotid bruits, no femoral bruits and no renal bruits Peripheral pulses: Peripheral pulses 2+ throughout GI Inspection: Yes normal to inspection Palpation (GI): No Abdominal aortic bruit present Skin General skin exam: no rashes or lesions noted Wounds: no wounds Hair: normal Neuro General: patient oriented x3 Cranial nerves: Yes Normal hearing present Cognition (Neuro): normal cognition Gait exam (Neuro): Normal gait present Motor exam (neuro): 5/5 motor strength present throughout Sensory Exam: No Sensory deficit (Neuro) Extrem Other: Left lower extremity wound: Measuring 4 cm x 3 cm today. Small ulceration and rounding noted in the middle of the wound. Wound edges are pink. No slough noted. Right lower extremity wound: 2 open ulcers noted, they were connected last visit but are now by approximately 1.5 cm of scabbed over skin. The smaller wound is measuring 1 cm x 1.5 cm with pink granulation tissue and no slough noted. The larger wound is measuring 9 cm x 7 cm with slight elevation, decreased in size from 11.5 x 7.5 from 11/14/2024. There was no slough noted. The wound bed is beefy red and pink granulation tissue. General: Yes normal to inspection, Yes full ROM, Yes capillary refill normal and Yes normal gait Assessment & Plan Assessment & Plan (1) PAD (peripheral artery disease): Code(s): I73.9 - Peripheral vascular disease, unspecified Category: Medical Plan: Miladys is presenting today for a 2 week wound check. She continues the VNA nursing services 3 times a week, who is changing the dressings. The wounds are slowly progressing and healing. We will continue with Xeroform on the left lower extremity as well as the smaller ulceration on the right lower extremity. On the larger right lower extremity wound we will continue with alginate, 4x4s, and Kerlix wrap. We will have her follow up with us in approximately 2 weeks. If there are any questions or concerns, please do not hesitate to reach out to us. Coding Level of Care Code Est Pt Level 3 (68150) Diagnoses PAD (peripheral artery disease) I73.9
--- OUTSIDE RECORDS SUMMARY | 2024-11-28 15:44 | XMS_ITS | Clinical Summary ---
Author Organization 175 [facility] Address [address] [place] [address] Phone Care Team Providers Care Program Coordinator For Residence Life Name Role Phone Lillian Velasco MD Primary Care Provider [phone] Social History Tobacco Use Types Packs/Day Years Used Date Smoking Tobacco: Never Assessed Comments Unknown Sex and Gender Information Value Date Recorded Sex Assigned at Not on file Legal Sex Female 10:36 AM EST Gender Identity Not on file Sexual Orientation Not on file Plan of Treatment Upcoming Encounters Date Type Department Care Team ([facility] Contact Info) Description 01/30/2025 2:30 PM EDT Consult Orthopedic Surgery - [place] [id number] [phone] Bijan Dean, DPM [address] [address] Health Maintenance Due Date Last Done Comments Breast Cancer Screening 1955 Diabetes: Annual GFR (Glomer ular Filtration Rate) 1955 Diabetes: Annual Foot Exam 02/13/1966 Diabetes: Annual Retina Eye Exam 02/13/1966 DTaP,Tdap,and Td Vaccines (1 - Tdap) 02/13/1975 Pneumococcal Vaccine: 50+ Ye ars (1 of 2 - PCV) 02/13/1975 Zoster Vaccines (1 of 2) 02/13/2006 COVID-19 Vaccine ( - 2023-2 5 season) 2024 Influenza Vaccine (#1) 2024 Cholesterol Screening (Lipid Panel) 11/26/2024 Colorectal Cancer Screening: Colonoscopy 11/26/2024 Depression Screening 11/26/2024 Diabetes: Annual Urine Albumin-Creatinine Ratio (uACR) 11/26/2024 Diabetes: Blood Sugar Contro l Test (HGBA1C) 11/26/2024 Falls Risk Assessment 11/26/2024 Hepatitis C Screening 11/26/2024 Medicare Annual Wellness Visit 11/26/2024 Osteoporosis Screening (Bone Density Screening) 11/26/2024 Social Influencers of Health Screening 11/26/2024 RSV Immunization Patients 60 + Years Old (1 - 1-dose 75+ series) 02/13/2031 HIB Vaccines Aged Out No longer eligi ble based on patient's age to complete this topic HPV Vaccines Aged Out No longer eligi ble based on patient's age to complete this topic Hepatitis A Vaccines Aged Out No long er eligible based on patient's age to complete this topic Hepatitis B Vaccines Aged Out No long er eligible based on patient's age to complete this topic IPV Vaccines Aged Out No longer eligi ble based on patient's age to complete this topic MMR Vaccines Aged Out No longer eligi ble based on patient's age to complete this topic Meningococcal ACWY Vaccine Aged Out N o longer eligible based on patient's age to complete this topic Meningococcal B Vacine Aged Out No lo nger eligible based on patient's age to complete this topic RSV Immunization Patients Un chilo 20 months Aged Out No longer eligible b ased on patient's age to complete this topic Varicella Vaccines Aged Out No longer eligible based on patient's age to complete this topic Insurance MEDICARE MEDICAID - [place] Care Teams Program Coordinator For Residence Life Relationship Specialty Start Date End Date Lillian Velasco MD [address] [place] [address] , [address] [facility] D[facility]A: [facility] CATIA Maldonado PCP - General Internal Medicine 11/26/24
== END 2024-11-28 15:26 | disposition home or self-care (01) ==
PROVIDERS: PCP Internal Medicine; Visit Provider Physician Assistant Surgical
DX: I73.9 Peripheral vascular disease, unspecified (principal)
CPT/HCPCS: 99213

== ENCOUNTER → 2024-11-28 14:32 | Outpatient (BNVA) | payer MEDICARE, SELFPAY | PROVIDERS: PCP Internal Medicine; Visit Provider Physician Assistant Surgical | DX: I73.9 Peripheral vascular disease, unspecified (principal); L97.829 Non-pressure chronic ulcer of other part of left lower leg with unspecified severity; L97.819 Non-pressure chronic ulcer of other part of right lower leg with unspecified severity | CPT/HCPCS: 99212 ==

== ENCOUNTER → 2024-12-03 23:59 | Outpatient (BNV) | payer MEDICARE, MEDICAID, SELFPAY | PROVIDERS: PCP Internal Medicine; Visit Provider Internal Medicine | DX: E11.51 Type 2 diabetes mellitus with diabetic peripheral angiopathy without gangrene (principal); I87.2 Venous insufficiency (chronic) (peripheral) | CPT/HCPCS: G0179 ==

== ENCOUNTER 2024-12-12 14:46 | Outpatient (AMB) | payer MEDICARE, SELFPAY ==
--- NOTE | 2024-12-12 15:09 | MHC.OFFVIS ---
Intake Visit Reasons: 2 week follow up wound check Intake Note: Patient presents for 2 week follow up. Patient saw dermatology and was given a moisturizer. Patient is changing her dressing once a day by daughter. VNA comes Monday, Monday and Monday. Accompanied by: Daughter Allergies amlodipine Allergy (Intermediate, Verified 12/12/24 15:17) drowsiness, swelling of feet and ankles lisinopril Allergy (Intermediate, Verified 12/12/24 15:17) cough hydralazine Allergy (Verified 12/12/24 15:17) Swelling metformin Adverse Reaction (Verified 12/12/24 15:17) Diarrhea Lisinopril-Hydrochlorothiazide Adverse Reaction (Intermediate, Uncoded 11/28/24 14:46) Leg swelling Metoprolol Tartrate Adverse Reaction (Intermediate, Uncoded 11/28/24 14:46) Leg swelling HPI HPI 2 week follow up wound check: Details: Miladys is presenting today as a 2 week follow up for wound check. She states she continues VNA services 3 times a week. She states she thinks that the wounds are getting better. She has decreased pain in the right lower extremity. She has seen Dermatology, who recommends betamethasone cream to the surrounding area of the wound on the left lower extremity only. She states that Dermatology would like to take a biopsy of the left lower extremity; however, the patient is not sure she wants to do that at this point [facility] Medical History Hypertension Wound of lower extremity Venous stasis ulcer Chronic ulcer of left ankle Diabetes Hypertension Abnormal Pap smear of cervix Diabetes mellitus Hypertension Renal calculi Diastasis recti Dyslipidemia associated with type 2 diabetes mellitus Abdominal mass Microalbuminuria Renal calculi Morbid obesity Surgical History Hx of prior ablation treatment Family History Father Seizures Mother Seizures Congenital heart disease in adult Hypotension Maternal Grandfather Leukemia Social History Household Members: Family Housing: House Do you presently have visiting nurse or other home services: No Alcohol intake: current Alcohol intake frequency: holidays/special occasions only Alcohol type: wine Patient Tobacco Use Status: Former Tobacco user Tobacco use type: Cigarette e-Cigarette/Vaping Use: Never Used Second Hand Smoke Exposure: No Substance Use Type: Marijuana service: No Current occupational status: employed Current occupational exposures/hazards: No Cognitive needs: No Hearing needs: No Vision needs: No Review of Systems Const Reports as per HPI and Denies weakness ENT Reports Normal hearing present and Denies dizziness Card Reports as per HPI, Denies chest pain, Denies chest pain at rest, Denies chest pain with activity, Denies dyspnea and Denies dyspnea on exertion Resp Reports as per HPI, Denies cough, Denies dyspnea and Denies dyspnea on exertion GI Reports as per HPI, Denies abdominal pain, Denies nausea and Denies vomiting Musc Denies numbness Skin/Breast Reports as per HPI, Denies erythema and Denies wounds Neuro Reports Normal hearing present, Denies dizziness, Denies numbness, Denies Sensory deficit (Neuro) and Denies weakness Psych Reports no additional complaints Endo Reports no additional complaints Physical Exam Const General: healthy appearing and no acute distress Orientation/consciousness: patient oriented x3 HEENT Head: Yes normal to inspection Ears: hearing grossly normal bilaterally Mouth: Normal oral and palatal mucosa present Resp Effort & Inspection: normal respiratory effort and able to speak in complete sentences Auscultation: clear to auscultation bilaterally Cardio Jugular venous distension: no JVD Rate: regular rate Rhythm: regular rhythm Heart sounds: S1 normal heart sound present and S2 normal heart sound present Bruits: no abdominal aortic bruits, no carotid bruits, no femoral bruits and no renal bruits Peripheral pulses: Peripheral pulses 2+ throughout GI Inspection: Yes normal to inspection Palpation (GI): No Abdominal aortic bruit present Skin General skin exam: no rashes or lesions noted Wounds: no wounds Hair: normal Neuro General: patient oriented x3 Cranial nerves: Yes Normal hearing present Cognition (Neuro): normal cognition Gait exam (Neuro): Normal gait present Motor exam (neuro): 5/5 motor strength present throughout Sensory Exam: No Sensory deficit (Neuro) Extrem Other: Left lower extremity: Measuring 1.5cmx1.5 cm, decreased in size from 4 cm x 3 cm on 11/28/24. The wound bed is raised a small ulceration and rounding in the middle of the wound. The wound edges are pink. No slough noted. Right lower extremity wounds: The posterior wound is measuring 1.5 cm x 1.5 cm with a 2 cm separation to the major wound on the lateral and anterior aspect. This is changed from last week which was 1 cm x 1.5 cm. It continues to have pink granulation tissue and no slough noted. The larger wound is measuring 8 cm x 4.5 cm x 0.1 cm, unchanged from last visit was 9 cm x 7 cm with slight elevation. There was no slough noted in the wound. The wound bed is beefy red pink granulation tissue. General: Yes normal to inspection, Yes full ROM, Yes capillary refill normal and Yes normal gait Assessment & Plan Assessment & Plan (1) PAD (peripheral artery disease): Code(s): I73.9 - Peripheral vascular disease, unspecified Category: Medical Plan: Miladys is presenting today as a 2 week wound check. She continues with VNA services 3 times a week. The wounds are slowly and progressively healing, which is great. We will continue with a nonadhesive 4x4 to the left lower extremity wound with a Kendra wrap. In the right lower extremity, we will continue with alginate, nonadhesive 4x4s, and Kerlix wrap. She we will continue with these dressing changes until we see her back in 2 weeks. If there are any questions or concerns, please do not hesitate to reach out to us. Coding Level of Care Code Est Pt Level 4 (22433) Diagnoses PAD (peripheral artery disease) I73.9 Comment Wound care
--- OUTSIDE RECORDS SUMMARY | 2024-12-12 18:11 | XMS_ITS | Clinical Summary ---
Author Organization 175 [facility] Address [address] [place] [address] Phone Care Team Providers Care Turntable Operator Name Role Phone Lillian Velasco MD Primary Care Provider [phone] Social History Tobacco Use Types Packs/Day Years Used Date Smoking Tobacco: Never Assessed Comments Unknown Sex and Gender Information Value Date Recorded Sex Assigned at Not on file Legal Sex Female 10:36 AM EST Gender Identity Not on file Sexual Orientation Not on file Plan of Treatment Upcoming Encounters Date Type Department Care Team ([facility] Contact Info) Description 01/30/2025 2:30 PM EDT Consult Orthopedic Surgery - [place] [id number] [phone] Bijan Dean, DPM [address] [address] Health Maintenance Due Date Last Done Comments [...] Insurance MEDICARE MEDICAID - [place] Care Teams Turntable Operator Relationship Specialty Start Date End Date Lillian Velasco MD [address] [place] [address] , [address] [facility] D/B[facility]A: [facility] CATIA Maldonado PCP - General Internal Medicine 11/26/24
== END 2024-12-12 15:46 | disposition home or self-care (01) ==
PROVIDERS: PCP Internal Medicine; Visit Provider Physician Assistant Surgical
DX: I73.9 Peripheral vascular disease, unspecified (principal)
CPT/HCPCS: 99214

== ENCOUNTER → 2024-12-12 14:46 | Outpatient (BNVA) | payer MEDICARE, SELFPAY | PROVIDERS: PCP Internal Medicine; Visit Provider Physician Assistant Surgical | DX: I73.9 Peripheral vascular disease, unspecified (principal) | CPT/HCPCS: 99212 ==

== ENCOUNTER 2024-12-26 14:49 | Outpatient (AMB) | payer MEDICARE, MEDICAID, SELFPAY ==
--- NOTE | 2024-12-26 14:53 | MHC.OFFVIS ---
Intake Visit Reasons: 2 week follow up wound check Intake Note: Patient presents for follow up wound check. Patient is changing dressings daily. No complaints. Accompanied by: Daughter Allergies amlodipine Allergy (Intermediate, Verified 12/26/24 14:57) drowsiness, swelling of feet and ankles lisinopril Allergy (Intermediate, Verified 12/26/24 14:57) cough hydralazine Allergy (Verified 12/26/24 14:57) Swelling metformin Adverse Reaction (Verified 12/26/24 14:57) Diarrhea Lisinopril-Hydrochlorothiazide Adverse Reaction (Intermediate, Uncoded 11/28/24 14:46) Leg swelling Metoprolol Tartrate Adverse Reaction (Intermediate, Uncoded 11/28/24 14:46) Leg swelling HPI HPI 2 week follow up wound check: Details: Miladys is presenting today with her daughter for a 2 week wound check. She states she is very happy with how the wound is progressing. She does continue with VNA services 3 times a week. She denies any pain at the site of the wounds. She does continue with betamethasone cream to the surrounding area of the wounds. She has no new concerns today. [facility] Medical History Hypertension Wound of lower extremity Venous stasis ulcer Chronic ulcer of left ankle Diabetes Hypertension Abnormal Pap smear of cervix Diabetes mellitus Hypertension Renal calculi Diastasis recti Dyslipidemia associated with type 2 diabetes mellitus Abdominal mass Microalbuminuria Renal calculi Morbid obesity Surgical History Hx of prior ablation treatment Family History Father Seizures Mother Seizures Congenital heart disease in adult Hypotension Maternal Grandfather Leukemia Social History Household Members: Family Housing: House Do you presently have visiting nurse or other home services: No Alcohol intake: current Alcohol intake frequency: holidays/special occasions only Alcohol type: wine Patient Tobacco Use Status: Former Tobacco user Tobacco use type: Cigarette e-Cigarette/Vaping Use: Never Used Second Hand Smoke Exposure: No Substance Use Type: Marijuana service: No Current occupational status: employed Current occupational exposures/hazards: No Cognitive needs: No Hearing needs: No Vision needs: No Review of Systems Const Reports as per HPI and Denies weakness ENT Reports Normal hearing present and Denies dizziness Card Reports as per HPI, Denies chest pain, Denies chest pain at rest, Denies chest pain with activity, Denies dyspnea and Denies dyspnea on exertion Resp Reports as per HPI, Denies cough, Denies dyspnea and Denies dyspnea on exertion GI Reports as per HPI, Denies abdominal pain, Denies nausea and Denies vomiting Musc Denies numbness Skin/Breast Reports as per HPI, Denies erythema and Denies wounds Neuro Reports Normal hearing present, Denies dizziness, Denies numbness, Denies Sensory deficit (Neuro) and Denies weakness Psych Reports no additional complaints Endo Reports no additional complaints Physical Exam Const General: healthy appearing and no acute distress Orientation/consciousness: patient oriented x3 HEENT Head: Yes normal to inspection Ears: hearing grossly normal bilaterally Mouth: Normal oral and palatal mucosa present Resp Effort & Inspection: normal respiratory effort and able to speak in complete sentences Auscultation: clear to auscultation bilaterally Cardio Jugular venous distension: no JVD Rate: regular rate Rhythm: regular rhythm Heart sounds: S1 normal heart sound present and S2 normal heart sound present Bruits: no abdominal aortic bruits, no carotid bruits, no femoral bruits and no renal bruits Peripheral pulses: Peripheral pulses 2+ throughout GI Inspection: Yes normal to inspection Palpation (GI): No Abdominal aortic bruit present Skin General skin exam: no rashes or lesions noted Wounds: no wounds Hair: normal Neuro General: patient oriented x3 Cranial nerves: Yes Normal hearing present Cognition (Neuro): normal cognition Gait exam (Neuro): Normal gait present Motor exam (neuro): 5/5 motor strength present throughout Sensory Exam: No Sensory deficit (Neuro) Extrem Other: Left lower extremity: No measurement taken today. There is a small raised ulceration in the center of the wound bed, which is pink. The ulceration is heard to palpation. No bleeding or drainage noted. The surrounding skin is pink. Right lower extremity: The posterior wound is measuring 1.5 cm x 1 cm, decreased in size from 1.5 cm x 1.5 cm at the last visit, 2 weeks ago. There is a longer separation to the major wound, not measured today. It continues to have pink granulation tissue in his starting to get scabbed over. The larger wound is measuring 6 cm x 3.5 cm, decreased significantly in size from last week which was 8 cm by 4.5 cm. No slough noted in the wound. The wound bed is pink and healthy looking tissue. There was no slough noted. There is no discharge noted. General: Yes normal to inspection, Yes full ROM, Yes capillary refill normal and Yes normal gait Assessment & Plan Assessment & Plan (1) PAD (peripheral artery disease): Code(s): I73.9 - Peripheral vascular disease, unspecified Category: Medical Plan: Miladys is presenting today as a 2 week follow up for wound check. Her wounds are healing very nicely and are decreasing in size at each visit. She continues with the VNA services 3 times a week. We will have her continue with Xeroform and nonadherent pad for the larger right lower extremity wound. On the left lower extremity wound we just applied and a nonadherent pad. The patient has stretchy gauze that we applied to both areas. We will have her continue with the dressing changes. We will have her return in 3 weeks for a follow up. If there are any questions or concerns, please do not hesitate to reach out to us. Coding Level of Care Code Est Pt Level 3 (51492) Diagnoses PAD (peripheral artery disease) I73.9
--- OUTSIDE RECORDS SUMMARY | 2024-12-26 17:20 | XMS_ITS | Clinical Summary ---
Author Organization Unknown Care Team Providers Care Retort Press Operator Name Role Phone NOELLE RUSSELL MD, REBECA Unavailable Unavailable CAITLIN RN, ADMISSION NURSE, MARC Unavail able Unavailable YI ALEXIS, CLINICAL NETWORK ANNOUNCER, ELISHA Rosario available Unavailable CALIN MANAGER PATIENT, OLAMIDE Unavailable Unavailab richard BOWLING LPN, ANGÉLICA Unavailable Milly AVINA PT, DUANE Unavailable Unavailable Payers Payer Name Policy Type Policy Number Effective Date Expira tion Date MEDICARE - [facility] [place]/MS - PD [id number] Problems Condition Name Condition Details Condition Category [...] W/O RESID 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-09 00:00: 00 USP (CURRENT) USE OF ASPIRIN Active 10-09 00:00: 00 REVIEW COORDINATOR (CURRENT) USE OF 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 ICS/ANTIPLAT ELETS Active 10-09 00:00: 00 Allergies, Adverse Reactions, [...] 2023-10 00:00: 00 08-01 23:59 :00 No [id number] Per instruc tions TWICE A DAY FOR 7 DAYS Per instructio ns TWICE A DAY FOR 7 DAYS (route: oral) Med Classific ation: Anti-Infe ctive Agents ibuprofen 800 mg tablet 2023-10 00:00: 00 08-01 23:59 :00 No [id number] Per instruc tions EVERY 8 HOURS NEEDED Per instructio ns EVERY 8 HOURS NEEDED (route: oral) Med Classific ation: Analgesic , Anti-infl ammatory or Antipyret ic levofloxaci n 750 mg tablet 2023-10 00:00: 00 08-01 23:59 :00 No [id number] Per instruc tions EVERY DAY FOR 7 DAYS Per instructio ns EVERY DAY FOR 7 DAYS (route: oral) Med Classific ation: Anti-Infe ctive Agents methocarbam ol 500 mg tablet 2023-10 0 00:00: 00 08-01 23:59 :00 No [id number] Per instruc tions THREE TIMES A DAY NEEDED Per instructio ns THREE TIMES A DAY NEEDED (route: oral) Med Classific ation: Locomotor System clonidine HCl 0.2 mg tablet 2023-10 0 00:00: 00 08-01 23:59 :00 No [id number] Per instruc tions 3 TIMES A DAY Per instructio ns 3 TIMES A DAY (route: oral) Med Classific ation: Cardiovas cular Therapy Agents potassium chloride ER 20 mEq tablet,exte nded release 2023-10 0 00:00: 00 08-01 23:59 :00 No [id number] Per instruc tions EVERY DAY Per instructio ns EVERY DAY (route: oral) Med Classific ation: Electroly te Balance-N utritiona l Products Santyl 250 unit/gram topical ointment 07-04 00:00: 00 07-17 00:00 :00 No [id number] Per instruc tions Per instructio ns (route: topical) Med Classific ation: Dermatolo gical clonidine HCl 0.1 mg tablet 06-21 00:00: 00 07-17 00:00 :00 No [id number] Per instruc tions TWICE A DAY FOR 90 DAYS Per instructio ns TWICE A DAY FOR 90 DAYS (route: oral) Med Classific ation: Cardiovas cular Therapy Agents albuterol sulfate HFA 90 mcg/actuati on aerosol inhaler 2023-10 00:00: 00 08-01 23:59 :00 No [id number] 2 puff EVERY 6 HOURS 2 puff EVERY 6 HOURS (route: inhalation ) Med Classific ation: Respirato ry Therapy Agents Aspirin Childrens 81 mg chewable tablet 2023-10 00:00: 00 08-01 23:59 :00 No [id number] 1 tablet DAILY 1 tablet DAILY (route: oral) Med Classific ation: Hematolog ical Agents metformin 500 mg tablet 2023-10 00:00: 00 08-01 23:59 :00 No [id number] 1 tablet 2 TIMES DAILY 1 tablet 2 TIMES DAILY (route: oral) Med Classific ation: Endocrine tramadol 50 mg tablet 2023-10 00:00: 00 08-01 23:59 :00 No [id number] 1 tablet 2 TIMES DAILY 1 tablet 2 TIMES DAILY (route: oral) Med Classific ation: Analgesic , Anti-infl ammatory or Antipyret ic Vitamin D3 25 mcg (1,000 unit) capsule 2023-10 00:00: 00 08-01 23:59 :00 No [id number] 1 capsule DAILY 1 capsule DAILY (route: oral) Med Classific ation: Electroly te Balance-N utritiona l Products aspirin 81 mg tablet,claire yed release 2023-10 00:00: 00 Yes [id number] 1 tablet DAILY 1 tablet DAILY (route: oral) Med Classific ation: Hematolog ical Agents betamethaso ne dipropionat e 0.05 % topical ointment 2023-10 00:00: 00 11-27 23:59 :00 No [id number] Per instruc tions DAILY Per instructio ns DAILY (route: topical) Med Classific ation: Dermatolo gical carvedilol 6.25 mg tablet 2023-10 00:00: 00 Yes [id number] 1 tablet 2 TIMES DAILY 1 tablet 2 TIMES DAILY (route: oral) Med Classific ation: Cardiovas cular Therapy Agents clonidine HCl 0.2 mg tablet 2023-10 00:00: 00 Yes [id number] 1 tablet 3 TIMES DAILY 1 tablet 3 TIMES DAILY (route: oral) Med Classific ation: Cardiovas cular Therapy Agents losartan 50 mg tablet 2023-10 00:00: 00 Yes [id number] 1 tablet DAILY 1 tablet DAILY (route: oral) Med Classific ation: Cardiovas cular Therapy Agents naloxone 4 mg/actuatio n nasal spray 2023-10 00:00: 00 Yes [id number] 1 spray DIRECTED 1 spray DIRECTED (route: nasal) Med Classific ation: Antidotes and other Reversal Agents tramadol 50 mg tablet 2023-10 00:00: 00 10-14 23:59 :00 No [id number] 1 tablet EVERY 6 HOURS 1 tablet EVERY 6 HOURS (route: oral) Med Classific ation: Analgesic , Anti-infl ammatory or Antipyret ic methocarbam ol 500 mg tablet 2023-10 00:00: 00 10-14 23:59 :00 No [id number] 1 tablet 3 TIMES DAILY 1 tablet 3 TIMES DAILY (route: oral) Med Classific ation: Locomotor System gabapentin 100 mg capsule 2023-10 00:00: 00 Yes [id number] 1 capsule BEDTIME 1 capsule BEDTIME (route: oral) Med Classific ation: Central Nervous System Agents gentamicin 0.1 % topical ointment 2023-10 00:00: 00 10-14 23:59 :00 No [id number] Per instruc tions DAILY Per instructio ns DAILY (route: topical) Med Classific ation: Dermatolo gical cephalexin 500 mg capsule 2023-10 00:00: 00 10-14 23:59 :00 No [id number] 500 mg 4 TIMES DAILY 500 mg 4 TIMES DAILY (route: oral) Med Classific ation: Anti-Infe ctive Agents aspirin 81 mg tablet,claire yed release 2023-10 00:00: 00 Yes [id number] 1 tablet DAILY 1 tablet DAILY (route: oral) Med Classific ation: Hematolog ical Agents atorvastati n 80 mg tablet 2023-10 00:00: 00 Yes [id number] 1 tablet BEDTIME 1 tablet BEDTIME (route: oral) Med Classific ation: Cardiovas cular Therapy Agents betamethaso ne dipropionat e 0.05 % topical ointment 2023-10 00:00: 00 11-27 23:59 :00 No [id number] Per instruc tions DAILY Per instructio ns DAILY (route: topical) Med Classific ation: Dermatolo gical carvedilol 6.25 mg tablet 2023-10 00:00: 00 Yes [id number] 1 tablet 2 TIMES DAILY 1 tablet 2 TIMES DAILY (route: oral) Med Classific ation: Cardiovas cular Therapy Agents clonidine HCl 0.2 mg tablet 2023-10 00:00: 00 Yes [id number] 1 tablet 3 TIMES DAILY 1 tablet 3 TIMES DAILY (route: oral) Med Classific ation: Cardiovas cular Therapy Agents clopidogrel 75 mg tablet 2023-10 00:00: 00 Yes [id number] 1 tablet DAILY 1 tablet DAILY (route: oral) Med Classific ation: Hematolog ical Agents gabapentin 300 mg capsule 2023-10 00:00: 00 Yes [id number] 1 capsule 2 TIMES DAILY 1 capsule 2 TIMES DAILY (route: oral) Med Classific ation: Central Nervous System Agents losartan 50 mg tablet 2023-10 00:00: 00 11-27 23:59 :00 No [id number] 0.5 tablet 2 TIMES DAILY 0.5 tablet 2 TIMES DAILY (route: oral) Med Classific ation: Cardiovas cular Therapy Agents methocarbam ol 500 mg tablet 2023-10 00:00: 00 10-14 23:59 :00 No [id number] 1 tablet 3 TIMES DAILY 1 tablet 3 TIMES DAILY (route: oral) Med Classific ation: Locomotor System morphine 15 mg immediate release tablet 2023-10 00:00: 00 10-14 23:59 :00 No [id number] 1 tablet EVERY 12 HOURS 1 tablet EVERY 12 HOURS (route: oral) Med Classific ation: Analgesic , Anti-infl ammatory or Antipyret ic naloxone 4 mg/actuatio n nasal spray 2023-10 00:00: 00 Yes [id number] 1 spray O2 - PRN 1 spray O 2 - PRN (route: nasal) Med Classific ation: Antidotes and other Reversal Agents oxycodone 5 mg tablet 2023-10 00:00: 00 10-14 23:59 :00 No [id number] 1 tablet EVERY 6 HOURS 1 tablet EVERY 6 HOURS (route: oral) Med Classific ation: Analgesic , Anti-infl ammatory or Antipyret ic betamethaso ne dipropionat e 0.05 % topical ointment 3-07 00:00: 00 Yes [id number] Per instruc tions DAILY Per instructio ns DAILY (route: topical) Med Classific ation: Dermatolo gical Vital Signs Vital Name Observation Time Observation Value Commen ts Temperature 2024-12-25 10:12:00.000 98.1 [degF] Temperature 2024-12-23 09:36:00.000 97.8 [degF] Temperature 2024-12-20 09:16:00.000 98.2 [degF] Temperature 2024-12-18 08:47:00.000 97.7 [degF] Temperature 2024-12-16 10:28:00.000 98.4 [degF] Temperature 2024-12-13 09:44:00.000 98.1 [degF] Temperature 2024-12-11 09:32:00.000 97 [degF] Temperature 2024-12-09 09:16:00.000 97.8 [degF] Temperature 2024-12-06 09:23:00.000 98.6 [degF] Temperature 2024-12-04 12:35:00.000 99.1 [degF] Temperature 2024-12-02 11:04:00.000 97.8 [degF] Pulse 2024-12-25 10:12:00.000 68 /min Pulse 2024-12-23 09:36:00.000 55 /min Pulse 2024-12-20 09:16:00.000 69 /min Pulse 2024-12-18 08:47:00.000 51 /min Pulse 2024-12-16 10:28:00.000 57 /min Pulse 2024-12-13 09:44:00.000 72 /min Pulse 2024-12-11 09:32:00.000 62 /min Pulse 2024-12-09 09:16:00.000 52 /min Pulse 2024-12-06 09:23:00.000 54 /min Pulse 2024-12-04 12:35:00.000 81 /min Pulse 2024-12-02 11:04:00.000 56 /min O2 Saturation (%) 2024-12-25 10:12:00.000 98 % O2 Saturation (%) 2024-12-23 09:36:00.000 97 % O2 Saturation (%) 2024-12-20 09:16:00.000 98 % O2 Saturation (%) 2024-12-18 08:47:00.000 99 % O2 Saturation (%) 2024-12-16 10:28:00.000 98 % O2 Saturation (%) 2024-12-13 09:44:00.000 99 % O2 Saturation (%) 2024-12-11 09:32:00.000 97 % O2 Saturation (%) 2024-12-09 09:16:00.000 99 % O2 Saturation (%) 2024-12-06 09:23:00.000 99 % O2 Saturation (%) 2024-12-04 12:35:00.000 97 % Respirations 2024-12-25 10:12:00.000 18 /min Respirations 2024-12-23 09:36:00.000 18 /min Respirations 2024-12-20 09:16:00.000 18 /min Respirations 2024-12-18 08:47:00.000 18 /min Respirations 2024-12-16 10:28:00.000 18 /min Respirations 2024-12-13 09:44:00.000 18 /min Respirations 2024-12-11 09:32:00.000 18 /min Respirations 2024-12-09 09:16:00.000 18 /min Respirations 2024-12-06 09:23:00.000 14 /min Respirations 2024-12-04 12:35:00.000 16 /min Respirations 2024-12-02 11:04:00.000 18 /min Systolic Blood Pressure 2024-12-25 10:12:00.000 162 mm [Hg] Systolic Blood Pressure 2024-12-23 09:36:00.000 150 mm [Hg] Systolic Blood Pressure 2024-12-20 09:16:00.000 140 mm [Hg] Systolic Blood Pressure 2024-12-18 08:47:00.000 132 mm [Hg] Systolic Blood Pressure 2024-12-16 10:28:00.000 148 mm [Hg] Systolic Blood Pressure 2024-12-13 09:44:00.000 137 mm [Hg] Systolic Blood Pressure 2024-12-11 09:32:00.000 150 mm [Hg] Systolic Blood Pressure 2024-12-09 09:16:00.000 148 mm [Hg] Systolic Blood Pressure 2024-12-06 09:34:00.000 159 mm [Hg] Systolic Blood Pressure 2024-12-04 12:35:00.000 164 mm [Hg] Systolic Blood Pressure 2024-12-02 11:04:00.000 142 mm [Hg] Diastolic Blood Pressure 2024-12-25 10:12:00.000 90 mm [Hg] Diastolic Blood Pressure 2024-12-23 09:36:00.000 90 mm [Hg] Diastolic Blood Pressure 2024-12-20 09:16:00.000 90 mm [Hg] Diastolic Blood Pressure 2024-12-18 08:47:00.000 66 mm [Hg] Diastolic Blood Pressure 2024-12-16 10:28:00.000 92 mm [Hg] Diastolic Blood Pressure 2024-12-13 09:44:00.000 82 mm [Hg] Diastolic Blood Pressure 2024-12-11 09:32:00.000 92 mm [Hg] Diastolic Blood Pressure 2024-12-09 09:16:00.000 92 mm [Hg] Diastolic Blood Pressure 2024-12-06 09:34:00.000 93 mm [Hg] Diastolic Blood Pressure 2024-12-04 12:35:00.000 110 m m[Hg] Diastolic Blood Pressure 2024-12-02 11:04:00.000 90 mm [Hg] Plan of Treatment Planned Activity [...] WHEN TO REPORT PROBLEMS.] Future Scheduled Test SKILLED NU RSE FOR O/A AND SKILLED TEACHING RELATED TO SIGNS AND SYMPTOMS OF INFECTION AND INFECTION CONTROL MEASURES. [code = SKILLED NURSE FOR O/A AND SKILLED TEACHING RELATED TO SIGNS AND SYMPTOMS OF INFECTION AND INFECTION CONTROL MEASURES.] Future Scheduled Test NEED FOR S KILLED TEACHING AND INTERVENTION RELATED TO VENOUS STASIS ULCER TO KRISTINE LOWER LEGS SKILLED NURSE OR TRAINED PATIENT/CAREGIVER TO PERFORM DRESSING CHANGE TO VENOUS ULCER LEFT LEG, USING CLEAN TECHNIQUE CLEANSE WOUND WITH VASHE OR STERILE WATER, PAT DRY, APPLY XEROFORM TO WOUND BED, BARRIER OINTMENT TO PERIWOUND, COVER WITH ALLEVYN PADDED DRESSING, BANDAR, TAPE. RIGHT LEG, WASH WITH VASHE OR STERILE WATER, PAT DRY, APPLY CALCIUM ALGINATE TO WOUND BED, BARRIER OINTMENT TO PERWOUND, COVER WITH PADDED DRESSING WRAP WITH KERLIX, TAPE. WOUND CARE TO BE DONE 3 TIMES A WEEK, OR WHEN SOILED OR DISLODGED PER SN OR TRAINED CG. WOUND CARE TO BE PERFORMED 3X PERVWEEK AND PRN IF SOILED OR DISLODGED. 1-2 [...] SKILLED TEACHING AND INTERVENTION RELATED TO VENOUS STASIS ULCER TO KRISTINE LOWER LEGS SKILLED NURSE OR TRAINED PATIENT/CAREGIVER TO PERFORM DRESSING CHANGE TO VENOUS ULCER LEFT LEG, USING CLEAN TECHNIQUE CLEANSE WOUND WITH VASHE OR STERILE WATER, PAT DRY, APPLY XEROFORM TO WOUND BED, BARRIER OINTMENT TO PERIWOUND, COVER WITH ALLEVYN PADDED DRESSING, BANDAR, TAPE. RIGHT LEG, WASH WITH VASHE OR STERILE WATER, PAT DRY, APPLY CALCIUM ALGINATE TO WOUND BED, BARRIER OINTMENT TO PERWOUND, COVER WITH PADDED DRESSING WRAP WITH KERLIX, TAPE. WOUND CARE TO BE DONE 3 TIMES A WEEK, OR WHEN SOILED OR DISLODGED PER SN OR TRAINED CG. WOUND CARE TO BE PERFORMED 3X PERVWEEK AND PRN IF SOILED OR DISLODGED. 1-2 [...] HYPOTENSION] Future Scheduled Test SKILLED NU RSE FOR [...] SYMPTOMS HYPO/HYPERGLYCEMIA TO REPORT.] Future Scheduled Test SKILLED NU RSE TO INSTRUCT PATIENT/CAREGIVER ON PREVENTION OF SEPSIS, AND SIGNS AND SYMPTOMS OF SEPSIS TO REPORT. [code = SKILLED NURSE TO INSTRUCT PATIENT/CAREGIVER ON PREVENTION OF SEPSIS, AND SIGNS AND SYMPTOMS OF SEPSIS TO REPORT.] Future Scheduled Test VIRTUAL SIT [...] MAINTAIN SITUATIONAL AWARENESS AND WILL NOTIFY CLINICAL PATENTED HOGSHEAD ASSEMBLER AND PHYSICIAN/PROVIDER WITH ANY CHANGE IN CONDITION. [code = SKILLED NURSE TO PERFORM ENVIRONMENTAL SAFETY RISK ASSESSMENT AND FALL RISK ASSESSMENT AND PROVIDE INSTRUCTION TO IMPLEMENT ENVIRONMENTAL SAFETY AND FALL PREVENTION STRATEGIES THROUGHOUT THE CERTIFICATION PERIOD. SKILLED NURSE WILL MAINTAIN SITUATIONAL AWARENESS AND WILL NOTIFY CLINICAL PATENTED HOGSHEAD ASSEMBLER AND PHYSICIAN/PROVIDER WITH ANY CHANGE IN CONDITION.] [...] OF NEUROPATHY AND METHODS TO MANAGE.] Goal 2024-11-27 Patient Goal - WOUNDS TO HEA L Goal 2024-09-30 Patient Goal - WOUNDS TO HEA L Goal 2024-09-20 Patient Goal - WOUNDS TO HEA L Goal Patient Goal - WOUNDS TO HEA L Goal Provider Goal - A PLAN OF CARE WILL BE ESTABLISHED THAT MEETS PATIENT'S SENIOR CARE NEEDS AND INCLUDES PATIENT GOAL FOR HOME HEALTH. Goal Provider Goal - PATIENT/CAREGIVER WILL VERBALIZE UNDERSTANDING OF EDUCATION PROVIDED ON MEDICATIONS BY THE END OF THE CERTIFICATION PERIOD. Goal Provider Goal - PATIENT/CAREGIVER WILL VERBALIZE/DEMONSTRATE UNDERSTANDING OF S/S OF INFECTION AND INFECTION CONTROL MEASURES. SIGNS AND SYMPTOMS OF INFECTION WILL BE IDENTIFIED AND PHYSICIAN NOTIFIED FOR PROMPT INTERVENTION THROUGHOUT THE CERTIFICATION PERIOD. [...] PERIOD. Goal Provider Goal - PATIENT WILL BE FREE FROM INFECTION AND PATIENT/CAREGIVER WILL VERBALIZE UNDERSTANDING OF SIGNS AND SYMPTOMS AND METHODS TO PREVENT SEPSIS BY END OF THE EPISODE. Goal Provider Goal - PATIENT/CAREGIVER WILL UTILIZE [...] Notes Progress Notes <paragraph>[Visit Date: 2024 by ANGÉLICA BOWLING LPN]:</paragraph><paragraph>SNV 12/25 ABNORMAL VITALS: WITHIN ESTABLISHED PARAMETERS FALLS: NO FALLS MEDICATION CHANGES: NO CHANGES OBSERVATION AND ASSESSMENT PROVIDED: PATIENT IS ALERT AND ORIENTED X4 PLEASANT AND COOPERATIVE DURING VISIT. PATIENT IS HAPPY WITH RATE OF WOUND HEALING. HAS AN APPOINTMENT WITH VASCULAR TOMORROW. VSS, PATIENT SPEAKS IN FULL SENTENCES WITH NAD, DENIES PAIN, AFEBRILE. NO ISSUES BOWELS OR BLADDER. APPETITE ADEQUATE. WOUND CARE PROVIDED TO BOTH WOUNDS. NO SIGNS OR SYMPTOMS OF INFECTION OBSERVED. PATIENT TOLERATED WELL. SUPPLIES ORDERED. EDUCATION: INFECTION PREVENTION, NUTRITION FOR WOUND HEALING INTERVENTIONS NEEDED AT NEXT VISIT: ASSESSMENT WOUND CARE COMMUNICATION WITH MD: NOT NEEDED AT THIS VISIT NEXT MD APPOINTMENT: [facility]ASCULAR 12/26 PT AND CAREGIVER INSTRUCTED TO CALL [facility] WITH ANY QUESTIONS OR CONCERNS AND/OR CHANGES IN CONDITION, PT VERBALIZED UNDERSTANDING</paragraph> <paragraph>[Visit Date: 2024 by MARC TUCKER RN, ADMISSION NURSE]:</paragraph><paragraph>SNV 12/23/24 1. ABNORMAL FINDINGS/SIGNIFICANT CHANGES: ALL VITAL SIGNS WITHIN SET PARAMETERS SYSTEM WITHIN NORMAL LIMITS 2. CARE COORDINATION DETAILS: NONE NEEDED 3. SKILLED PROCEDURE PERFORMED THIS VISIT: PATIENT'S WOUND TO BILATERAL LOWER EXTREMITIES COMPLETED NO SIGNS AND SYMPTOMS OF INFECTION HEALING WELL PATIENT TOLERATED WELL 4. NEXT PHYSICIAN/PROVIDER APPT: VASCULAR 12/26/24 5. PLAN/FOLLOW-UP NEEDED FOR NEXT VISIT: ASSESS SKIN WOUND CARE VITAL SIGNS ADDRESS ABOVE APPROPRIATE IN NARRATIVE BELOW: PATIENT ALERT ORIENTATED X3 IN [employer] PATIENT'S WOUND DRESSED PATIENT TOLERATED WELL NO SIGNS AND SYMPTOMS OF INFECTION PATIENT DENIES ANY FEVERS CHILLS NAUSEA VOMITING CHEST PAIN NO LOWER EXTREMITIES EDEMA PATIENT BOWEL SOUNDS X4 LAST BOWEL MOVEMENT TODAY PATIENT EDUCATED ON INFECTION CONTROL SUCH WASHING HANDS CHANGING DRESSING DAILY ORDERED PATIENT VERBALIZED UNDERSTANDING PATIENT EDUCATED ON CALLING [facility] FOR ANY CONCERNS OR CHANGE IN CONDITION PATIENT EDUCATED ON CALENDAR VISIT DATES PATIENT VERBALIZED UNDERSTANDING AGREE WITH PLAN</paragraph> <paragraph>[Visit Date: 2024 by MARC TUCKER RN, ADMISSION NURSE]:</paragraph><paragraph>SNV 12/20/24 1. ABNORMAL FINDINGS/SIGNIFICANT ALL VITAL SIGNS WITHIN SET PARAMETERS OF SYSTEMS WITHIN NORMAL LIMITSALL VITAL SIGNS WITHIN SET PARAMETERS OF SYSTEMS WITHIN NORMAL LIMITS 2. CARE COORDINATION DETAILS : NONE NEEDED 3. SKILLED PROCEDURE PERFORMED THIS VISIT: PATIENT WOUND CARE TO BILATERAL LOWER EXTREMITIES COMPLETED PATIENT TOLERATED WELL WOUND CARE DOCUMENTED IN BRYANT SYSTEM 4. NEXT PHYSICIAN/PROVIDER APPT: VASCULAR 12/26/24 5. PLAN/FOLLOW-UP NEEDED FOR NEXT VISIT: WOUND CARE AND SKIN ASSESSMENT INFECTION CONTROL EDUCATION DIABETES EDUCATION ADDRESS ABOVE APPROPRIATE IN NARRATIVE BELOW: PATIENT ALERT ORIENTATED X3 AND GOODS. PATIENT VERY HAPPY THAT HER WOUNDS ARE HEALING VERY WELL PATIENT TOLERATED WOUND CARE GERD NO SIGNS AND SYMPTOMS OF INFECTION PATIENT EDUCATED ON DIABETES MANAGEMENT AND HYPERTENSION PATIENT'S LUNG SOUNDS CLEAR NO WHEEZING CRACKLES NO LOWER EXTREMITIES EDEMA BOWEL SOUNDS X4 LAST BOWEL MOVEMENT TODAY PATIENT EDUCATED ON CALLING [facility] FOR ANY CONCERNS OR CHANGE IN CONDITION PATIENT EDUCATED ON NEXT SN VISIT PATIENT VERBALIZED UNDERSTANDING AND AGREE WITH PLAN DENIES ANY FALLS ANY EMERGENCY ROOM VISITS ANY MEDICATION CHANGES</paragraph> Encounters Start Date/Time End Date/Time Encounter Type Admission Type Attending Clinicians Care Facility Care Department Encounter ID Discharge Date Discharge Status Discharge Condition Discharge Reason Percent Goals Met 2024-08-04 00:00:00 2025-01-30 00:00:00 Outpatient RECERTIFIC ATELISHA RAMOS [facility] [id number] 30.77
--- OUTSIDE RECORDS SUMMARY | 2024-12-26 17:20 | XMS_ITS | Clinical Summary ---
Author Organization [address] [facility] Address [address] [place] [address] Phone Care Team Providers Care Patcher Name Role Phone Lillian Velasco MD Primary Care Provider Social History Tobacco Use Types Packs/Day Years Used Date Smoking Tobacco: Never Assessed Comments Unknown Sex and Gender Information Value Date Recorded Sex Assigned at Not on file Legal Sex Female 10:36 AM EST Gender Identity Not on file Sexual Orientation Not on file Plan of Treatment Upcoming Encounters Date Type Department Care Team ([facility] Contact Info) Description 01/30/2025 2:30 PM EDT Consult Orthopedic Surgery - [place] [id number] [phone] Bijan Dean, DPM [address] [address] Health Maintenance Due Date Last Done Comments [...] Insurance MEDICARE MEDICAID - [place] Care Teams Patcher Relationship Specialty Start Date End Date Lillian Velasco MD [address] [place] [address] , [address] [facility] D[facility]A: [facility] [place] [place] PCP - General Internal Medicine 11/26/24
--- OUTSIDE RECORDS SUMMARY | 2024-12-26 17:20 | XMS_ITS | Clinical Summary ---
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 Name Role Phone NOELLE RUSSELL MD, REBECA Unavailable Unavailable CAITLIN RN, ADMISSION NURSE, MARC Unavail able Unavailable YI ALEXIS, CLINICAL HAUNTED HISTORY TOUR GUIDE, ELISHA Rosario available Unavailable CALIN SENIOR TECHNICAL BUSINESS ANALYST, OLAMIDE Unavailable Unavailab richard BOWLING LPN, ANGÉLICA Unavailable Milly AVINA PT, DUANE Unavailable Unavailable Payers Payer Name Policy Type Policy Number Effective Date Expira tion Date MEDICARE - [facility] [place] - [place] [id number] Problems Condition Name Condition Details Condition Category [...] W/O RESID 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-09 00:00: 00 INTERMEDIATE (CURRENT) USE OF ASPIRIN Active 10-09 00:00: 00 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 ICS/ANTIPLAT ELETS Active [...] 2023-10 00:00: 00 08-01 23:59 :00 No [id number] Per instruc tions TWICE A DAY FOR 7 DAYS Per instructio ns TWICE A DAY FOR 7 DAYS (route: oral) Med Classific ation: Anti-Infe ctive Agents ibuprofen 800 mg tablet 2023-10 00:00: 00 08-01 23:59 :00 No [id number] Per instruc tions EVERY 8 HOURS NEEDED Per instructio ns EVERY 8 HOURS NEEDED (route: oral) Med Classific ation: Analgesic , Anti-infl ammatory or Antipyret ic levofloxaci n 750 mg tablet 2023-10 00:00: 00 08-01 23:59 :00 No [id number] Per instruc tions EVERY DAY FOR 7 DAYS Per instructio ns EVERY DAY FOR 7 DAYS (route: oral) Med Classific ation: Anti-Infe ctive Agents methocarbam ol 500 mg tablet 2023-10 0 00:00: 00 08-01 23:59 :00 No [id number] Per instruc tions THREE TIMES A DAY NEEDED Per instructio ns THREE TIMES A DAY NEEDED (route: oral) Med Classific ation: Locomotor System clonidine HCl 0.2 mg tablet 2023-10 0 00:00: 00 08-01 23:59 :00 No [id number] Per instruc tions 3 TIMES A DAY Per instructio ns 3 TIMES A DAY (route: oral) Med Classific ation: Cardiovas cular Therapy Agents potassium chloride ER 20 mEq tablet,exte nded release 2023-10 0 00:00: 00 08-01 23:59 :00 No [id number] Per instruc tions EVERY DAY Per instructio ns EVERY DAY (route: oral) Med Classific ation: Electroly te Balance-N utritiona l Products Santyl 250 unit/gram topical ointment 07-04 00:00: 00 07-17 00:00 :00 No [id number] Per instruc tions Per instructio ns (route: topical) Med Classific ation: Dermatolo gical clonidine HCl 0.1 mg tablet 06-21 00:00: 00 07-17 00:00 :00 No [id number] Per instruc tions TWICE A DAY FOR 90 DAYS Per instructio ns TWICE A DAY FOR 90 DAYS (route: oral) Med Classific ation: Cardiovas cular Therapy Agents albuterol sulfate HFA 90 mcg/actuati on aerosol inhaler 2023-10 00:00: 00 08-01 23:59 :00 No [id number] 2 puff EVERY 6 HOURS 2 puff EVERY 6 HOURS (route: inhalation ) Med Classific ation: Respirato ry Therapy Agents Aspirin Childrens 81 mg chewable tablet 2023-10 00:00: 00 08-01 23:59 :00 No [id number] 1 tablet DAILY 1 tablet DAILY (route: oral) Med Classific ation: Hematolog ical Agents metformin 500 mg tablet 2023-10 00:00: 00 08-01 23:59 :00 No [id number] 1 tablet 2 TIMES DAILY 1 tablet 2 TIMES DAILY (route: oral) Med Classific ation: Endocrine tramadol 50 mg tablet 2023-10 00:00: 00 08-01 23:59 :00 No [id number] 1 tablet 2 TIMES DAILY 1 tablet 2 TIMES DAILY (route: oral) Med Classific ation: Analgesic , Anti-infl ammatory or Antipyret ic Vitamin D3 25 mcg (1,000 unit) capsule 2023-10 00:00: 00 08-01 23:59 :00 No [id number] 1 capsule DAILY 1 capsule DAILY (route: oral) Med Classific ation: Electroly te Balance-N utritiona l Products aspirin 81 mg tablet,claire yed release 2023-10 00:00: 00 Yes [id number] 1 tablet DAILY 1 tablet DAILY (route: oral) Med Classific ation: Hematolog ical Agents betamethaso ne dipropionat e 0.05 % topical ointment 2023-10 00:00: 00 11-27 23:59 :00 No [id number] Per instruc tions DAILY Per instructio ns DAILY (route: topical) Med Classific ation: Dermatolo gical carvedilol 6.25 mg tablet 2023-10 00:00: 00 Yes [id number] 1 tablet 2 TIMES DAILY 1 tablet 2 TIMES DAILY (route: oral) Med Classific ation: Cardiovas cular Therapy Agents clonidine HCl 0.2 mg tablet 2023-10 00:00: 00 Yes [id number] 1 tablet 3 TIMES DAILY 1 tablet 3 TIMES DAILY (route: oral) Med Classific ation: Cardiovas cular Therapy Agents losartan 50 mg tablet 2023-10 00:00: 00 Yes [id number] 1 tablet DAILY 1 tablet DAILY (route: oral) Med Classific ation: Cardiovas cular Therapy Agents naloxone 4 mg/actuatio n nasal spray 2023-10 00:00: 00 Yes [id number] 1 spray DIRECTED 1 spray DIRECTED (route: nasal) Med Classific ation: Antidotes and other Reversal Agents tramadol 50 mg tablet 2023-10 00:00: 00 10-14 23:59 :00 No [id number] 1 tablet EVERY 6 HOURS 1 tablet EVERY 6 HOURS (route: oral) Med Classific ation: Analgesic , Anti-infl ammatory or Antipyret ic methocarbam ol 500 mg tablet 2023-10 00:00: 00 10-14 23:59 :00 No [id number] 1 tablet 3 TIMES DAILY 1 tablet 3 TIMES DAILY (route: oral) Med Classific ation: Locomotor System gabapentin 100 mg capsule 2023-10 00:00: 00 Yes [id number] 1 capsule BEDTIME 1 capsule BEDTIME (route: oral) Med Classific ation: Central Nervous System Agents gentamicin 0.1 % topical ointment 2023-10 00:00: 00 10-14 23:59 :00 No [id number] Per instruc tions DAILY Per instructio ns DAILY (route: topical) Med Classific ation: Dermatolo gical cephalexin 500 mg capsule 2023-10 00:00: 00 10-14 23:59 :00 No [id number] 500 mg 4 TIMES DAILY 500 mg 4 TIMES DAILY (route: oral) Med Classific ation: Anti-Infe ctive Agents aspirin 81 mg tablet,claire yed release 2023-10 00:00: 00 Yes [id number] 1 tablet DAILY 1 tablet DAILY (route: oral) Med Classific ation: Hematolog ical Agents atorvastati n 80 mg tablet 2023-10 00:00: 00 Yes [id number] 1 tablet BEDTIME 1 tablet BEDTIME (route: oral) Med Classific ation: Cardiovas cular Therapy Agents betamethaso ne dipropionat e 0.05 % topical ointment 2023-10 00:00: 00 11-27 23:59 :00 No [id number] Per instruc tions DAILY Per instructio ns DAILY (route: topical) Med Classific ation: Dermatolo gical carvedilol 6.25 mg tablet 2023-10 00:00: 00 Yes [id number] 1 tablet 2 TIMES DAILY 1 tablet 2 TIMES DAILY (route: oral) Med Classific ation: Cardiovas cular Therapy Agents clonidine HCl 0.2 mg tablet 2023-10 00:00: 00 Yes [id number] 1 tablet 3 TIMES DAILY 1 tablet 3 TIMES DAILY (route: oral) Med Classific ation: Cardiovas cular Therapy Agents clopidogrel 75 mg tablet 2023-10 00:00: 00 Yes [id number] 1 tablet DAILY 1 tablet DAILY (route: oral) Med Classific ation: Hematolog ical Agents gabapentin 300 mg capsule 2023-10 00:00: 00 Yes [id number] 1 capsule 2 TIMES DAILY 1 capsule 2 TIMES DAILY (route: oral) Med Classific ation: Central Nervous System Agents losartan 50 mg tablet 2023-10 00:00: 00 11-27 23:59 :00 No [id number] 0.5 tablet 2 TIMES DAILY 0.5 tablet 2 TIMES DAILY (route: oral) Med Classific ation: Cardiovas cular Therapy Agents methocarbam ol 500 mg tablet 2023-10 00:00: 00 10-14 23:59 :00 No [id number] 1 tablet 3 TIMES DAILY 1 tablet 3 TIMES DAILY (route: oral) Med Classific ation: Locomotor System morphine 15 mg immediate release tablet 2023-10 00:00: 00 10-14 23:59 :00 No [id number] 1 tablet EVERY 12 HOURS 1 tablet EVERY 12 HOURS (route: oral) Med Classific ation: Analgesic , Anti-infl ammatory or Antipyret ic naloxone 4 mg/actuatio n nasal spray 2023-10 00:00: 00 Yes [id number] 1 spray O2 - PRN 1 spray O 2 - PRN (route: nasal) Med Classific ation: Antidotes and other Reversal Agents oxycodone 5 mg tablet 2023-10 00:00: 00 10-14 23:59 :00 No [id number] 1 tablet EVERY 6 HOURS 1 tablet EVERY 6 HOURS (route: oral) Med Classific ation: Analgesic , Anti-infl ammatory or Antipyret ic betamethaso ne dipropionat e 0.05 % topical ointment 3-07 00:00: 00 Yes [id number] Per instruc tions DAILY Per instructio ns [...] MAINTAIN SITUATIONAL AWARENESS AND WILL NOTIFY CLINICAL FORMAL WAITER/WAITRESS AND PHYSICIAN/PROVIDER WITH ANY CHANGE IN CONDITION. [code = SKILLED NURSE TO PERFORM ENVIRONMENTAL SAFETY RISK ASSESSMENT AND FALL RISK ASSESSMENT AND PROVIDE INSTRUCTION TO IMPLEMENT ENVIRONMENTAL SAFETY AND FALL PREVENTION STRATEGIES THROUGHOUT THE CERTIFICATION PERIOD. SKILLED NURSE WILL MAINTAIN SITUATIONAL AWARENESS AND WILL NOTIFY CLINICAL FORMAL WAITER/WAITRESS AND PHYSICIAN/PROVIDER WITH ANY CHANGE IN CONDITION.] [...] CARE WILL BE ESTABLISHED THAT MEETS PATIENT'S ALF NEEDS AND INCLUDES PATIENT GOAL FOR HOME [...] 12/26 PT AND CAREGIVER INSTRUCTED TO CALL [facility] WITH ANY QUESTIONS OR CONCERNS AND/OR [...] 00:00:00 2025-01-30 00:00:00 Outpatient RECERTIFIC ATELISHA RAMOS [facility] [id number] 30.77
== END 2024-12-26 15:24 | disposition home or self-care (01) ==
LOC: HO.HVS 14:50
PROVIDERS: PCP Internal Medicine; Visit Provider Physician Assistant Surgical
DX: I73.9 Peripheral vascular disease, unspecified (principal)
CPT/HCPCS: 99213

== ENCOUNTER → 2024-12-26 14:49 | Outpatient (BNVA) | payer MEDICARE, OTHER, SELFPAY | PROVIDERS: PCP Internal Medicine; Visit Provider Physician Assistant Surgical | DX: I73.9 Peripheral vascular disease, unspecified (principal) | CPT/HCPCS: 99212 ==

== ENCOUNTER 2025-01-16 14:36 | Outpatient (AMB) | payer MEDICARE, MEDICAID, SELFPAY ==
--- NOTE | 2025-01-16 14:41 | A.OFFVIS_ITS ---
Intake Visit Reasons: 2 week follow up wound check Intake Note: Patient presents for follow up wound check. Patient states she is doing well and wounds are better. Accompanied by: Daughter Allergies amlodipine Allergy (Intermediate, Verified 01/16/25 14:42) drowsiness, swelling of feet and ankles lisinopril Allergy (Intermediate, Verified 01/16/25 14:42) cough hydralazine Allergy (Verified 01/16/25 14:42) Swelling metformin Adverse Reaction (Verified 01/16/25 14:42) Diarrhea Lisinopril-Hydrochlorothiazide Adverse Reaction (Intermediate, Uncoded 11/28/24 14:46) Leg swelling Metoprolol Tartrate Adverse Reaction (Intermediate, Uncoded 11/28/24 14:46) Leg swelling HPI HPI 2 week follow up wound check: Details: Miladys is presenting today for a 2w follow up for a wound check. She is here with her daughter. She states she is very happy with the progress of the wounds and states they have been looking better. She continues with xeroform and wraps on the right lower extremity and is not doing anything for the left lower extremity. She has no new concerns today. [facility] Medical History Hypertension Wound of lower extremity Venous stasis ulcer Chronic ulcer of left ankle Diabetes Hypertension Abnormal Pap smear of cervix Diabetes mellitus Hypertension Renal calculi Diastasis recti Dyslipidemia associated with type 2 diabetes mellitus Abdominal mass Microalbuminuria Renal calculi Morbid obesity Surgical History Hx of prior ablation treatment Family History Father Seizures Mother Seizures Congenital heart disease in adult Hypotension Maternal Grandfather Leukemia Social History Household Members: Family Housing: House Do you presently have visiting nurse or other home services: No Alcohol intake: current Alcohol intake frequency: holidays/special occasions only Alcohol type: wine Patient Tobacco Use Status: Former Tobacco user Tobacco use type: Cigarette e-Cigarette/Vaping Use: Never Used Second Hand Smoke Exposure: No Substance Use Type: Marijuana service: No Current occupational status: employed Current occupational exposures/hazards: No Cognitive needs: No Hearing needs: No Vision needs: No Review of Systems Const Reports as per HPI and Denies weakness ENT Reports Normal hearing present and Denies dizziness Card Reports as per HPI, Denies chest pain, Denies chest pain at rest, Denies chest pain with activity, Denies dyspnea and Denies dyspnea on exertion Resp Reports as per HPI, Denies cough, Denies dyspnea and Denies dyspnea on exertion GI Reports as per HPI, Denies abdominal pain, Denies nausea and Denies vomiting Musc Denies numbness Skin/Breast Reports as per HPI, Denies erythema and Denies wounds Neuro Reports Normal hearing present, Denies dizziness, Denies numbness, Denies Sensory deficit (Neuro) and Denies weakness Psych Reports no additional complaints Endo Reports no additional complaints Physical Exam Const General: healthy appearing and no acute distress Orientation/consciousness: patient oriented x3 HEENT Head: Yes normal to inspection Ears: hearing grossly normal bilaterally Mouth: Normal oral and palatal mucosa present Resp Effort & Inspection: normal respiratory effort and able to speak in complete sentences Auscultation: clear to auscultation bilaterally Cardio Jugular venous distension: no JVD Rate: regular rate Rhythm: regular rhythm Heart sounds: S1 normal heart sound present and S2 normal heart sound present Bruits: no abdominal aortic bruits, no carotid bruits, no femoral bruits and no renal bruits Peripheral pulses: Peripheral pulses 2+ throughout GI Inspection: Yes normal to inspection Palpation (GI): No Abdominal aortic bruit present Skin General skin exam: no rashes or lesions noted Wounds: no wounds Hair: normal Neuro General: patient oriented x3 Cranial nerves: Yes Normal hearing present Cognition (Neuro): normal cognition Gait exam (Neuro): Normal gait present Motor exam (neuro): 5/5 motor strength present throughout Sensory Exam: No Sensory deficit (Neuro) Extrem Other: Right lower extremity: The posterior wound has scabbed over. The larger wound is measuring 3.2 cm x 2.2 cm, decreased significantly in size from last week which was 6 cm by 3 cm. No slough noted in the wound. The wound bed is pink and healthy looking tissue. There was no slough noted. There is no discharge noted. General: Yes normal to inspection, Yes full ROM, Yes capillary refill normal and Yes normal gait Assessment & Plan Assessment & Plan (1) PAD (peripheral artery disease): Code(s): I73.9 - Peripheral vascular disease, unspecified Category: Medical Plan: Miladys is presenting today for a 2w follow up wound check. She has been doing very well, the sites are decreasing in size every visit and is now down to only one wound, which is measuring 3.2cmx2.2cm. The posterior right and left extremi ty wounds have completely healed and are scabbed over. We will have her continue with Xeroform, nonadherent pad, and tubigrip, to be changed every other day. We discussed that the new skin that is coming up is very sensitive and to use vaseline or aquaphor to moisturize. We will have her follow up in 3w; I discussed with her that, with the way she is healing, that may be the last visit we will need to have for these wounds. If there are any questions or concerns, please do not hesitate to reach out to us. Coding Level of Care Code Est Pt Level 3 (47424) Diagnoses PAD (peripheral artery disease) I73.9
--- OUTSIDE RECORDS SUMMARY | 2025-01-16 17:15 | XMS_ITS | Clinical Summary ---
Author Organization Unknown Care Team Providers Care Technologist Infectious Disease Name Role Phone NOELLE RUSSELL MD, REBECA Unavailable Unavailable CAITLIN RN, ADMISSION NURSE, MARC Unavail able Unavailable YI ALEXIS, CLINICAL TESTER WAFER SUBSTRATE, ELISHA Rosario available Unavailable CALIN AIRPLANE CAPTAIN, OLAMIDE Unavailable Unavailab richard BOWLING LPN, ANGÉLICA Unavailable Milly AVINA PT, DUANE Unavailable Unavailable TIMOTHY RN, CECI Unavailable Unavailable Payers Payer Name Policy Type Policy Number Effective Date Expira tion Date MEDICARE - [facility] [place] - PDGM [id number] Problems Condition Name Condition Details Condition Category [...] USE OF ASPIRIN Active 10-09 00:00: 00 FDC (CURRENT) USE OF 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 ICS/ANTIPLAT ELETS Active [...] 2023-10 00:00: 00 08-01 23:59 :00 No [id number] Per instruc tions TWICE A DAY FOR 7 DAYS Per instructio ns TWICE A DAY FOR 7 DAYS (route: oral) Med Classific ation: Anti-Infe ctive Agents ibuprofen 800 mg tablet 2023-10 00:00: 00 08-01 23:59 :00 No [id number] Per instruc tions EVERY 8 HOURS NEEDED Per instructio ns EVERY 8 HOURS NEEDED (route: oral) Med Classific ation: Analgesic , Anti-infl ammatory or Antipyret ic levofloxaci n 750 mg tablet 2023-10 00:00: 00 08-01 23:59 :00 No [id number] Per instruc tions EVERY DAY FOR 7 DAYS Per instructio ns EVERY DAY FOR 7 DAYS (route: oral) Med Classific ation: Anti-Infe ctive Agents methocarbam ol 500 mg tablet 2023-10 0 00:00: 00 08-01 23:59 :00 No [id number] Per instruc tions THREE TIMES A DAY NEEDED Per instructio ns THREE TIMES A DAY NEEDED (route: oral) Med Classific ation: Locomotor System clonidine HCl 0.2 mg tablet 2023-10 0 00:00: 00 08-01 23:59 :00 No [id number] Per instruc tions 3 TIMES A DAY Per instructio ns 3 TIMES A DAY (route: oral) Med Classific ation: Cardiovas cular Therapy Agents potassium chloride ER 20 mEq tablet,exte nded release 2023-10 00:00: 00 08-01 23:59 :00 No [id number] Per instruc tions EVERY DAY Per instructio ns EVERY DAY (route: oral) Med Classific ation: Electroly te Balance-N utritiona l Products Santyl 250 unit/gram topical ointment 07-04 00:00: 00 07-17 00:00 :00 No [id number] Per instruc tions Per instructio ns (route: topical) Med Classific ation: Dermatolo gical clonidine HCl 0.1 mg tablet 06-21 00:00: 00 07-17 00:00 :00 No [id number] Per instruc tions TWICE A DAY FOR 90 DAYS Per instructio ns TWICE A DAY FOR 90 DAYS (route: oral) Med Classific ation: Cardiovas cular Therapy Agents albuterol sulfate HFA 90 mcg/actuati on aerosol inhaler 2023-10 00:00: 00 08-01 23:59 :00 No [id number] 2 puff EVERY 6 HOURS 2 puff EVERY 6 HOURS (route: inhalation ) Med Classific ation: Respirato ry Therapy Agents Aspirin Childrens 81 mg chewable tablet 2023-10 00:00: 00 08-01 23:59 :00 No [id number] 1 tablet DAILY 1 tablet DAILY (route: oral) Med Classific ation: Hematolog ical Agents metformin 500 mg tablet 2023-10 00:00: 00 08-01 23:59 :00 No [id number] 1 tablet 2 TIMES DAILY 1 tablet 2 TIMES DAILY (route: oral) Med Classific ation: Endocrine tramadol 50 mg tablet 2023-10 00:00: 00 08-01 23:59 :00 No [id number] 1 tablet 2 TIMES DAILY 1 tablet 2 TIMES DAILY (route: oral) Med Classific ation: Analgesic , Anti-infl ammatory or Antipyret ic Vitamin D3 25 mcg (1,000 unit) capsule 2023-10 00:00: 00 08-01 23:59 :00 No [id number] 1 capsule DAILY 1 capsule DAILY (route: oral) Med Classific ation: Electroly te Balance-N utritiona l Products aspirin 81 mg tablet,claire yed release 2023-10 00:00: 00 01-13 00:00 :00 No [id number] 1 tablet DAILY 1 tablet DAILY (route: oral) Med Classific ation: Hematolog ical Agents betamethaso ne dipropionat e 0.05 % topical ointment 2023-10 00:00: 00 11-27 23:59 :00 No [id number] Per instruc tions DAILY Per instructio ns DAILY (route: topical) Med Classific ation: Dermatolo gical carvedilol 6.25 mg tablet 2023-10 00:00: 00 01-15 23:59 :00 No [id number] 1 tablet 2 TIMES DAILY 1 tablet 2 TIMES DAILY (route: oral) Med Classific ation: Cardiovas cular Therapy Agents clonidine HCl 0.2 mg tablet 2023-10 00:00: 00 Yes [id number] 1 tablet 3 TIMES DAILY 1 tablet 3 TIMES DAILY (route: oral) Med Classific ation: Cardiovas cular Therapy Agents losartan 50 mg tablet 2023-10 00:00: 00 Yes [id number] 1 tablet DAILY 1 tablet DAILY (route: oral) Med Classific ation: Cardiovas cular Therapy Agents naloxone 4 mg/actuatio n nasal spray 2023-10 00:00: 00 01-15 23:59 :00 No [id number] 1 spray DIRECTED 1 spray DIRECTED (route: nasal) Med Classific ation: Antidotes and other Reversal Agents tramadol 50 mg tablet 2023-10 0-27 00:00: 00 10-14 23:59 :00 No [id number] 1 tablet EVERY 6 HOURS 1 tablet EVERY 6 HOURS (route: oral) Med Classific ation: Analgesic , Anti-infl ammatory or Antipyret ic methocarbam ol 500 mg tablet 2023-10 00:00: 00 10-14 23:59 :00 No [id number] 1 tablet 3 TIMES DAILY 1 tablet 3 TIMES DAILY (route: oral) Med Classific ation: Locomotor System gabapentin 100 mg capsule 2023-10 00:00: 00 01-15 23:59 :00 No [id number] 1 capsule BEDTIME 1 capsule BEDTIME (route: oral) Med Classific ation: Central Nervous System Agents gentamicin 0.1 % topical ointment 2023-10 00:00: 00 10-14 23:59 :00 No [id number] Per instruc tions DAILY Per instructio ns DAILY (route: topical) Med Classific ation: Dermatolo gical cephalexin 500 mg capsule 2023-10 00:00: 00 10-14 23:59 :00 No [id number] 500 mg 4 TIMES DAILY 500 mg 4 TIMES DAILY (route: oral) Med Classific ation: Anti-Infe ctive Agents aspirin 81 mg tablet,claire yed release 2023-10 00:00: 00 Yes [id number] 1 tablet DAILY 1 tablet DAILY (route: oral) Med Classific ation: Hematolog ical Agents atorvastati n 80 mg tablet 2023-10 00:00: 00 Yes [id number] 1 tablet BEDTIME 1 tablet BEDTIME (route: oral) Med Classific ation: Cardiovas cular Therapy Agents betamethaso ne dipropionat e 0.05 % topical ointment 2023-10 00:00: 00 11-27 23:59 :00 No [id number] Per instruc tions DAILY Per instructio ns DAILY (route: topical) Med Classific ation: Dermatolo gical carvedilol 6.25 mg tablet 2023-10 00:00: 00 01-13 00:00 :00 No [id number] 1 tablet 2 TIMES DAILY 1 tablet 2 TIMES DAILY (route: oral) Med Classific ation: Cardiovas cular Therapy Agents clonidine HCl 0.2 mg tablet 2023-10 00:00: 00 01-13 00:00 :00 No [id number] 1 tablet 3 TIMES DAILY 1 tablet 3 TIMES DAILY (route: oral) Med Classific ation: Cardiovas cular Therapy Agents clopidogrel 75 mg tablet 2023-10 00:00: 00 Yes [id number] 1 tablet DAILY 1 tablet DAILY (route: oral) Med Classific ation: Hematolog ical Agents gabapentin 300 mg capsule 2023-10 00:00: 00 01-15 23:59 :00 No [id number] 1 capsule 2 TIMES DAILY 1 capsule 2 TIMES DAILY (route: oral) Med Classific ation: Central Nervous System Agents losartan 50 mg tablet 2023-10 00:00: 00 11-27 23:59 :00 No [id number] 0.5 tablet 2 TIMES DAILY 0.5 tablet 2 TIMES DAILY (route: oral) Med Classific ation: Cardiovas cular Therapy Agents methocarbam ol 500 mg tablet 2023-10 00:00: 00 10-14 23:59 :00 No [id number] 1 tablet 3 TIMES DAILY 1 tablet 3 TIMES DAILY (route: oral) Med Classific ation: Locomotor System morphine 15 mg immediate release tablet 2023-10 00:00: 00 10-14 23:59 :00 No [id number] 1 tablet EVERY 12 HOURS 1 tablet EVERY 12 HOURS (route: oral) Med Classific ation: Analgesic , Anti-infl ammatory or Antipyret ic naloxone 4 mg/actuatio n nasal spray 2023-10 00:00: 00 01-13 00:00 :00 No [id number] 1 spray O2 - PRN 1 spray O2 - PRN (route: nasal) Med Classific ation: Antidotes and other Reversal Agents oxycodone 5 mg tablet 2023-10 00:00: 00 10-14 23:59 :00 No [id number] 1 tablet EVERY 6 HOURS 1 tablet EVERY 6 HOURS (route: oral) Med Classific ation: Analgesic , Anti-infl ammatory or Antipyret ic betamethaso ne dipropionat e 0.05 % topical ointment 12-13 00:00: 00 Yes [id number] Per instruc tions DAILY Per instructio ns DAILY (route: topical) Med Classific ation: Dermatolo gical Vital Signs Vital Name Observation Time Observation Value Commen ts Temperature 2025-01-15 09:27:00.000 99.4 [degF] Temperature 2025-01-13 09:08:00.000 98.2 [degF] Temperature 2025-01-10 09:10:00.000 99.5 [degF] Temperature 2025-01-08 11:47:00.000 98.2 [degF] Temperature 2025-01-06 09:20:00.000 98.7 [degF] Temperature 2025-01-01 09:46:00.000 97.2 [degF] Temperature 2024-12-30 09:51:00.000 98.5 [degF] Temperature 2024-12-27 09:27:00.000 97.6 [degF] Temperature 2024-12-25 10:12:00.000 98.1 [degF] Temperature 2024-12-23 09:36:00.000 97.8 [degF] Temperature 2024-12-20 09:16:00.000 98.2 [degF] Temperature 2024-12-18 08:47:00.000 97.7 [degF] Temperature 2024-12-16 10:28:00.000 98.4 [degF] Temperature 2024-12-13 09:44:00.000 98.1 [degF] Temperature 2024-12-11 09:32:00.000 97 [degF] Temperature 2024-12-09 09:16:00.000 97.8 [degF] Temperature 2024-12-06 09:23:00.000 98.6 [degF] Temperature 2024-12-04 12:35:00.000 99.1 [degF] Temperature 2024-12-02 11:04:00.000 97.8 [degF] Pulse 2025-01-15 09:27:00.000 69 /min Pulse 2025-01-13 09:08:00.000 71 /min Pulse 2025-01-10 09:10:00.000 77 /min Pulse 2025-01-08 11:47:00.000 59 /min Pulse 2025-01-06 09:20:00.000 74 /min Pulse 2025-01-03 10:01:00.000 62 /min Pulse 2025-01-01 09:46:00.000 56 /min Pulse 2024-12-30 09:51:00.000 69 /min Pulse 2024-12-27 09:27:00.000 72 /min Pulse 2024-12-25 10:12:00.000 68 /min Pulse 2024-12-23 09:36:00.000 55 /min Pulse 2024-12-20 09:16:00.000 69 /min Pulse 2024-12-18 08:47:00.000 51 /min Pulse 2024-12-16 10:28:00.000 57 /min Pulse 2024-12-13 09:44:00.000 72 /min Pulse 2024-12-11 09:32:00.000 62 /min Pulse 2024-12-09 09:16:00.000 52 /min Pulse 2024-12-06 09:23:00.000 54 /min Pulse 2024-12-04 12:35:00.000 81 /min Pulse 2024-12-02 11:04:00.000 56 /min O2 Saturation (%) 2025-01-15 09:27:00.000 97 % O2 Saturation (%) 2025-01-13 09:08:00.000 98 % O2 Saturation (%) 2025-01-10 09:10:00.000 99 % O2 Saturation (%) 2025-01-06 09:20:00.000 98 % O2 Saturation (%) 2025-01-03 10:01:00.000 98 % O2 Saturation (%) 2025-01-01 09:46:00.000 99 % O2 Saturation (%) 2024-12-30 09:51:00.000 96 % O2 Saturation (%) 2024-12-27 09:27:00.000 98 % O2 Saturation (%) 2024-12-25 10:12:00.000 98 % [...] Saturation (%) 2024-12-04 12:35:00.000 97 % Respirations 2025-01-15 09:27:00.000 14 /min Respirations 2025-01-13 09:08:00.000 14 /min Respirations 2025-01-10 09:10:00.000 16 /min Respirations 2025-01-08 11:47:00.000 12 /min Respirations 2025-01-06 09:20:00.000 18 /min Respirations 2025-01-03 10:01:00.000 18 /min Respirations 2025-01-01 09:46:00.000 18 /min Respirations 2024-12-30 09:51:00.000 18 /min Respirations 2024-12-25 10:12:00.000 18 /min Respirations 2024-12-23 09:36:00.000 18 /min Respirations 2024-12-20 09:16:00.000 18 /min Respirations 2024-12-18 08:47:00.000 18 /min Respirations 2024-12-16 10:28:00.000 18 /min Respirations 2024-12-13 09:44:00.000 18 /min Respirations 2024-12-11 09:32:00.000 18 /min Respirations 2024-12-09 09:16:00.000 18 /min Respirations 2024-12-06 09:23:00.000 14 /min Respirations 2024-12-04 12:35:00.000 16 /min Respirations 2024-12-02 11:04:00.000 18 /min Systolic Blood Pressure 2025-01-15 09:27:00.000 152 mm [Hg] Systolic Blood Pressure 2025-01-13 09:08:00.000 168 mm [Hg] Systolic Blood Pressure 2025-01-10 09:10:00.000 178 mm [Hg] Systolic Blood Pressure 2025-01-08 11:47:00.000 158 mm [Hg] Systolic Blood Pressure 2025-01-06 09:20:00.000 160 mm [Hg] Systolic Blood Pressure 2025-01-03 10:01:00.000 134 mm [Hg] Systolic Blood Pressure 2025-01-01 09:46:00.000 124 mm [Hg] Systolic Blood Pressure 2024-12-30 09:51:00.000 150 mm [Hg] Systolic Blood Pressure 2024-12-27 09:27:00.000 142 mm [Hg] Systolic Blood Pressure 2024-12-25 10:12:00.000 162 mm [...] 11:04:00.000 142 mm [Hg] Diastolic Blood Pressure 2025-01-15 09:27:00.000 94 mm [Hg] Diastolic Blood Pressure 2025-01-13 09:08:00.000 82 mm [Hg] Diastolic Blood Pressure 2025-01-10 09:10:00.000 92 mm [Hg] Diastolic Blood Pressure 2025-01-08 11:47:00.000 94 mm [Hg] Diastolic Blood Pressure 2025-01-06 09:20:00.000 92 mm [Hg] Diastolic Blood Pressure 2025-01-03 10:01:00.000 82 mm [Hg] Diastolic Blood Pressure 2025-01-01 09:46:00.000 70 mm [Hg] Diastolic Blood Pressure 2024-12-30 09:51:00.000 92 mm [Hg] Diastolic Blood Pressure 2024-12-27 09:27:00.000 86 mm [Hg] Diastolic Blood Pressure 2024-12-25 10:12:00.000 [...] CHANGE IN STATUS MAY BE PERFORMED UTILIZING [employer] SYSTEM TO OPTIMIZE SKILLED SERVICES FURNISHED ON [...] MAINTAIN SITUATIONAL AWARENESS AND WILL NOTIFY CLINICAL FREIGHT TRAFFIC CONSULTANT AND PHYSICIAN/PROVIDER WITH ANY CHANGE IN CONDITION. [code = SKILLED NURSE TO PERFORM ENVIRONMENTAL SAFETY RISK ASSESSMENT AND FALL RISK ASSESSMENT AND PROVIDE INSTRUCTION TO IMPLEMENT ENVIRONMENTAL SAFETY AND FALL PREVENTION STRATEGIES THROUGHOUT THE CERTIFICATION PERIOD. SKILLED NURSE WILL MAINTAIN SITUATIONAL AWARENESS AND WILL NOTIFY CLINICAL FREIGHT TRAFFIC CONSULTANT AND PHYSICIAN/PROVIDER WITH ANY CHANGE IN CONDITION.] [...] CARE WILL BE ESTABLISHED THAT MEETS PATIENT'S SHELTER NEEDS AND INCLUDES PATIENT GOAL FOR HOME [...] Notes Progress Notes <paragraph>[Visit Date: 2024 by CECI AGUIRRE RN]:</paragraph><paragraph>ABNORMAL FINDINGS/SIGNIFICANT CHANGES VS WDL CARE COORDINATION DETAILS NONE SKILLED PROCEDURE PERFORMED THIS VISIT TEACHING, ASSESSMENT, MEDICATION REVIEW, WOUND CARE AND DRESSING CHANGE. NEXT PHYSICIAN/PROVIDER APPT IN A WEEK PLAN/FOLLOW-UP NEEDED FOR NEXT VISIT TEACHING, ASSESSMENT, MEDICATION REVIEW, WOUND CARE AND DRESSING CHANGE ADDRESS ABOVE APPROPRIATE IN NARRATIVE BELOW: CLIENT IS AOX4 AND DENIES S/S OF INFECTION, CP, DIZZINESS, SOB OR PAIN. CLIENT LUNGS ARE CLEAR TO AUSCULTATION AND BOWEL SOUNDS AUDIBLE IN ALL QUADRANTS. CLIENT SKIN IS WARM DRY AND INTACT WITH EXCEPTION OF HER RLE WOUND. CLIENT LLE WOUND STILL REMAINS INTACT. CLIENT RLE CONTINUES TO IMPROVE AND THAT'S THE WOUND THAT WE ARE CURRENTLY ADDRESSING. CLIENT INSTRUCTED TO CONTACT [facility] FOR ANY ISSUES OR HEALTH CARE CONCERNS 01/05. CLIENT ACKNOWLEDGES UNDERSTANDING.</paragraph> <paragraph>[Visit Date: 2024 by CECI AGUIRRE RN]:</paragraph><paragraph>ABNORMAL FINDINGS/SIGNIFICANT CHANGES VS WDL; EXCEPT BP SLIGHTLY ELEVATED. CARE COORDINATION DET SKILLED PROCEDURE PERFORMED THIS VISIT ASSESSMENT, TEACHING, WOUND CARE AND DRESSING CHANGE NEXT PHYSICIAN/PROVIDER APPT SOMETIME THIS MONTH PLAN/FOLLOW-UP NEEDED FOR NEXT VISIT TEACHING, ASSESSMENT, WOUND CARE AND DRESSING CHANGE ADDRESS ABOVE APPROPRIATE IN NARRATIVE BELOW: CLIENT IS A VERY PLEASANT LADY THAT UTILIZES A FLIGHT OF ABOUT 16 STEPS TO GET IN AND OUT OF HER APARTMENT. TO LET ME IN SHE MAKES A TRIP DOWN W/O ANY ASSISTIVE DEVICES, JUST RAILS ONLY. CLIENT IS AOX4 AND DENIES ANY S/S OF INFECTION, CP, DIZZINESS, SOB AND PAIN. CLIENT LUNG SOUNDS ARE CLEAR TO AUSCULTATION AND BOWEL SOUNDS AUDIBLE IN ALL QUADRANTS. CLIENT'S WOUND ON HER LLE CONTINUES TO BE INTACT AND THE WOUND ON HER RLE IS STEADILY IMPROVING AND HAS SCANT DRAINAGE. OTHERWISE, SKIN IS WARM AND DRY AND THE REMAINDER OR ASSISTANCE. CLIENT INSTRUCTED TO CONTACT [facility] 01/05 FOR ANY ISDUES OR HEALTH CARE CONCERNS. CLIENT VERBALIZES UNDERSTANDING OF ALL.</paragraph> <paragraph>[Visit Date: 2024 by CECI AGUIRRE RN]:</paragraph><paragraph>ABNORMAL FINDINGS/SIGNIFICANT CHANGES BP ELEVATED 178/92 AND CLIENT IS ASYMPTOMATIC; ALL OTHER VITAL SIGNS WDL CARE COORDINATION DETAILS I NOTIFIED MD ON BP ISSUE AND NO NEW ORDERS RECEIVED SKILLED PROCEDURE PERFORMED THIS VISIT TEACHING, ASSESSMENT, WOUND CARE AND DRESSING CHANGE NEXT PHYSICIAN/PROVIDER APPT UNKNOWN PLAN/FOLLOW-UP NEEDED FOR NEXT VISIT TEACHING, ASSESSMENT, WOUND CARE AND DRESSING CHANGE ADDRESS ABOVE APPROPRIATE IN NARRATIVE BELOW: UPON ARRIVAL CLIENT CAME DOWN 16 STEPS TO OPEN THE DOOR TO LET ME IN. CLIENT IS A VERY PLEASANT FEMALE AND UPON TAKING HER BP IT WAS ELEVATED 178/92. MD WAS NOTIFIED WITH NO NEW ORDERS PROVIDED. CLIENT IS ASYMPTOMATIC AT THIS TIME. SHE IS ALERT AND ORIENTED X4 AND ABLE TO MAKE NEEDS KNOWN. CLIENT DENIES ANY S/S OF INFECTION, CP, DIZZINESS, SOB AND NO PAIN. CLIENT'S LUNGS ARE CLEAR TO AUSCULTATION AND BOWEL SOUNDS AUDIBLE IN ALL QUADRANTS. CLIENT HAS WOUNDS ON BILATERAL EXTREMITY 1 WOUND ON THE LLE IS PRACTICALLY HEALED. THE WOUND WE'RE TAKING CARE OF ON THE RIGHT LOWER LEG IS COMING ALONG NICELY. WOUND CARE AND DRESSING CHANGE WAS DONE CLIENT TOLERATED ALL WELL. OTHERWISE CLIENT SKIN IS WARM AND DRY AND THE REMAINDER INTACT. CLIENT INSTRUCTED TO CONTACT [facility] WITH ANY ISSUES OR HEALTH CARE CONCERNS 01/05. CLIENT ACKNOWLEDGES UNDERSTANDING OF ALL.</paragraph> Encounters Start Date/Time End Date/Time Encounter Type Admission Type Attending Clinicians Care Facility Care Department Encounter ID Discharge Date Discharge Status Discharge Condition Discharge Reason Percent Goals Met 2024-08-04 00:00:00 2025-01-30 00:00:00 Outpatient RECERTIFIC [facility] [id number] 38.46
--- OUTSIDE RECORDS SUMMARY | 2025-01-16 17:15 | XMS_ITS | Clinical Summary ---
Author Organization [address] [facility] Address [address] [place] [address] Phone Care Team Providers Care [employer] Assistant Name Role Phone Lillian Velasco MD Primary Care Provider [phone] Social History Tobacco Use Types Packs/Day Years Used Date Smoking Tobacco: Never Assessed Comments Unknown Sex and Gender Information Value Date Recorded Sex Assigned at Not on file Legal Sex Female 10:36 AM EST Gender Identity Not on file Sexual Orientation Not on file Plan of Treatment Upcoming Encounters Date Type Department Care Team ([facility] Contact Info) Description 01/30/2025 2:30 PM EDT Consult Orthopedic Surgery - [place] [id number] [phone] Bijan Dean, DPM [address] [id number] Health Maintenance Due Date Last Done Comments Breast Cancer Screening 1955 Diabetes: Annual GFR (Glomer ular Filtration Rate) 1955 Diabetes: Annual Foot Exam 02/13/1966 Diabetes: Annual Retina Eye Exam 02/13/1966 DTaP,Tdap,and Td Vaccines (1 - Tdap) 02/13/1975 Pneumococcal Vaccine: 50+ Ye ars (1 of 2 - PCV) 02/13/1975 Zoster Vaccines (1 of 2) 02/13/2006 COVID-19 Vaccine ( - 2023-2 5 season) 2024 Cholesterol Screening (Lipid Panel) 11/26/2024 Colorectal Cancer Screening: Colonoscopy 11/26/2024 Depression Screening 11/26/2024 Diabetes: Annual Urine Albumin-Creatinine Ratio (uACR) 11/26/2024 Diabetes: Blood Sugar Contro l Test (HGBA1C) 11/26/2024 Falls Risk Assessment 11/26/2024 Hepatitis C Screening 11/26/2024 Medicare Annual Wellness Visit 11/26/2024 Osteoporosis Screening (Bone Density Screening) 11/26/2024 Social Influencers of Health Screening 11/26/2024 Influenza Vaccine (Season Ended) 2025 RSV Immunization Adult Patie nts (1 - 1-dose 75+ series) 02/13/2031 HIB [...] age to complete this topic Meningococcal B Vaccine Aged Out No l onger eligible based on patient's age to complete this topic RSV Immunization Patients Un chilo 20 months Aged Out No longer eligible b ased on patient's age to complete this topic Varicella Vaccines Aged Out No longer eligible based on patient's age to complete this topic Insurance MEDICARE MEDICAID - [place] Care Teams [employer] Assistant Relationship Specialty Start Date End Date Lillian Velasco MD [address] [place] [address] , [address] [employer] [facility] D[facility]A: [facility] CATIA Maldonado PCP - General Internal Medicine 11/26/24
== END 2025-01-16 15:23 | disposition home or self-care (01) ==
LOC: HO.HVS 14:37
PROVIDERS: PCP Internal Medicine; Visit Provider Physician Assistant Surgical
DX: I73.9 Peripheral vascular disease, unspecified (principal)
CPT/HCPCS: 99213

== ENCOUNTER → 2025-01-16 14:36 | Outpatient (BNVA) | payer MEDICARE, OTHER, SELFPAY | PROVIDERS: PCP Internal Medicine; Visit Provider Physician Assistant Surgical | DX: I73.9 Peripheral vascular disease, unspecified (principal); Z09 Encounter for follow-up examination after completed treatment for conditions other than malignant neoplasm; Z98.890 Other specified postprocedural states | CPT/HCPCS: 99212 ==

== ENCOUNTER 2025-01-23 13:22 | Outpatient (AMB) | payer MEDICARE, SELFPAY ==
--- NOTE | 2025-01-23 13:50 | A.OFFPC_ITS ---
Vital Signs 01/23/25 13:51 Height 5 ft 7 in Weight 252 lb 8 oz BMI 39.5 BP 120/72 Blood Pressure Location Lt brachial Position Sitting Pulse 68 Pulse Source Pulse Oximeter Temp 97.1 F Temp Source Temporal Artery Scan Pulse Oximetry (%) 97 Oxygen Delivery Method Room Air Intake Visit Reasons: f/u DM Intake Note: Patient is here to follow up on DM. Sugar Mixer Required: No Military Personnel Specialist: Present Accompanied by: Daughter Allergies amlodipine Allergy (Intermediate, Verified 01/23/25 13:53) drowsiness, swelling of feet and ankles lisinopril Allergy (Intermediate, Verified 01/23/25 13:53) cough hydralazine Allergy (Verified 01/23/25 13:53) Swelling metformin Adverse Reaction (Verified 01/23/25 13:53) Diarrhea Lisinopril-Hydrochlorothiazide Adverse Reaction (Intermediate, Uncoded 01/23/25 13:53) Leg swelling Metoprolol Tartrate Adverse Reaction (Intermediate, Uncoded 01/23/25 13:53) Leg swelling Medication List - Last Reviewed 01/23/25 by ROMAIN Kaur albuterol sulfate 90 mcg/actuation 2 puffs inhalation Q6H PRN aspirin (Adult Aspirin Regimen) 81 mg PO DAILY 90 days atorvastatin 80 mg PO BEDTIME 90 days blood sugar diagnostic (Freestyle [employer] strips) USe 1 test strip once a day blood-glucose meter (Freestyle [employer] meter) As directed carvedilol 6.25 mg See Protocol PO BID cholecalciferol (vitamin D3) 25 mcg PO DAILY clonidine HCl 0.2 mg (2 x 0.1 mg) PO TID clopidogrel 75 mg PO DAILY compr.stocking,knee,long,large As directed losartan 25 mg See Protocol PO BID sodium chlor-hypochlorous acid 0.033 % (Vashe) 1 irrig irrigation Q3-4H PRN 30 days Tobacco use date assessed: 01/23/25 Fall risk assessment: No Falls in past year Last assessed Fall Risk: 01/23/25 Dental Screening Dental Screen Date: 10/25/24 HPI f/u DM HPI Details 69-year-old female with past medical his tory of diabetes mellitus, hypertension, dyslipidemia, and morbid obesity last seen 10/2024 coming in for follow up. In review of the notes, patient was seen by vascular surgery for 07/2025 and follows with them for regular wound care of bilateral ankle ulcers.?At her last visit ulcers has been improving and was advised she would likely have 1 more visit before being discharged.?He was also seen by Dermatanisa hatfield 12/2024 advised to obtain pathology results from [facility] regarding wound biopsy and follow up after. Presenting with medication management, blood pressure evaluation, dermatologic care, and travel-related health concerns. Recent fluctuations in blood pressure despite taking clonidine. Adjustments have been made to the dosage due to overmedication concerns. The patient noticed inconsistencies in control and reports stabilization with recent visits. Complex wound care ongoing, including multiple biopsies and recent use of Xeroform for ulcerations. Preparation for international travel requiring vaccinations as they are overdue, with a focus on yellow fever required, and additional anti-malarial prophylaxis possible. [facility] Medical History Hypertension Wound of lower extremity Venous stasis ulcer Chronic ulcer of left ankle Diabetes Hypertension Abnormal Pap smear of cervix Diabetes mellitus Hypertension Renal calculi Diastasis recti Dyslipidemia associated with type 2 diabetes mellitus Abdominal mass Microalbuminuria Renal calculi Morbid obesity Surgical History Hx of prior ablation treatment Family History Father Seizures Mother Seizures Congenital heart disease in adult Hypotension Maternal Grandfather Leukemia Social History Household Members: Family Housing: House Do you presently have visiting nurse or other home services: No Alcohol intake: current Alcohol intake frequency: holidays/special occasions only Alcohol type: wine Patient Tobacco Use Status: Former Tobacco user Tobacco use type: Cigarette e-Cigarette/Vaping Use: Never Used Second Hand Smoke Exposure: No Substance Use Type: Marijuana service: No Current occupational status: employed Current occupational exposures/hazards: No Cognitive needs: No Hearing needs: No Vision needs: No Questionnaire Thrive Questionnaire Date Thrive assessed: 10/25/24 MARLYN-7 AMB Questionnaire MARLYN-7 Date MARLYN - 7 assessed: 10/25/24 Source: Developed by Drs. Cesar Snow, Ela Wiley, Benjamín Chino and colleagues, with an educational rio from [email or web address]. Review of Systems Const Denies body aches, Denies chills, Denies fever(s), Denies headache(s) and Denies poor appetite Eyes Reports no additional complaints ENT Denies dizziness and Denies headache(s) Card Denies chest pain and Denies dyspnea Resp Denies cough and Denies dyspnea GI Denies diarrhea, Denies nausea and Denies vomiting Reports no additional complaints Musc Reports no additional complaints and Denies abnormal gait Skin/Breast Reports system reviewed and no additional complaints, except as documented Neuro Denies abnormal gait, Denies dizziness and Denies headache(s) Psych Reports no additional complaints Physical exam (Primary Care) Vital Signs: Last Vital Signs Temp 97.1 F 01/23/25 13:51 Pulse 68 01/23/25 13:51 BP 120/72 01/23/25 13:51 Pulse Ox 97 01/23/25 13:51 Oxygen Delivery Method Room Air 01/23/25 13:51 BMI result Body Mass Index 39.5 Tobacco/Smoking Status: Tobacco use Status Tobacco use date assessed 01/23/25 01/23/25 14:02 Patient Tobacco Use Status Former Tobacco user 01/23/25 13:51 Tobacco use type Cigarette 01/23/25 13:51 e-Cigarette/Vaping Use Never Used 01/23/25 13:51 Thrive Assessment: Date of Thrive Assessment Date Thrive assessed 10/25/24 01/23/25 13:51 Const General: cooperative, healthy appearing, comfortable and no acute distress Orientation/consciousness: patient oriented x3 HENMT Head: Yes normocephalic Ears: hearing grossly normal bilaterally General nose exam: Normal external nose present Eyes General: appearance normal, both eyes and all related structures Conjunctivae: conjunctivae normal Neck Neck: Yes full ROM and Yes no lymphadenopathy Resp Effort & Inspection: normal respiratory effort Auscultation: clear to auscultation bilaterally, no crackles, no rales, no rhonchi and no wheezes Cardio Rate: regular rate Rhythm: regular rhythm Skin General skin exam: no rashes or lesions noted Neuro General: patient oriented x3 Gait exam (Neuro): Normal gait present Extrem Other: medial aspect of left ankle without areas of open skin or ulceration General: Yes normal to inspection, Yes full ROM and No edema Psych Affect: normal affect Attitude: cooperative Insight: Good insight present (Psych) Judgement: Good judgement present (Psych) Results AMB Hemoglobin A1c AMB Hemoglobin A1c 6.5 % Last Edit by ROMAIN Kaur on 01/23/25 14:04 Immunizations Boostrix Tdap 2.5 Lf unit-8 mcg-5 Lf/0.5 mL intramuscular syringe Performing Provider: Aliza Clemens PA-C Performing Location: [facility] Administered by: Dona Camarillo CMA on 01/23/25 14:31 Dose Route Admin Location Dispensed Lot Number Expiration Date NDC Counseling Services Manager 0.5 mL IM Left Deltoid 0.5 mL [id number] 06/04/27 [id number] [employer] VIS Given Date VIS Provided VIS Publication Date 01/23/25 Single Vaccine 24 Eligibility Eligibility Date Funding Source Not VF Eligible 01/23/25 Private Results Reviewed Results Reviewed: Laboratory Last Values Hgb A1c (Clinic) 6.5 % (4.0-6.0) H 01/23/25 13:50 Coding Level of Care Code Est Pt Level 3 (05242) Diagnoses CVA (cerebral vascular accident) I63.9 Dyslipidemia associated with type 2 diabetes mellitus E11.69; E78.5 Essential hypertension I10 Hypertension type: essential hypertension Type 2 diabetes mellitus without complication, without long-term current use of insulin E11.9 Diabetes mellitus complication status: without complication Diabetes mellitus intermediate project manager insulin use: without intermediate project manager use PAD (peripheral artery disease) I73.9 Labile hypertension R09.89 Assessment & Plan Assessment & Plan (1) CVA (cerebral vascular accident): Comment: [facility] 09/17/2024 CTA head and neck showed several scattered areas of stenosis in several vessels. MRI brain performed 09/17/2024 revealed a tiny acute infarct in the right coronar radiata Code(s): I63.9 - Cerebral infarction, unspecified Category: Medical Plan: Advised good control of blood sugars, cholesterol and blood pressures. Patient is currently on dual antiplatelet with clopidogrel and aspirin. (2) Dyslipidemia associated with type 2 diabetes mellitus: Code(s): E11.69 - Type 2 diabetes mellitus with other specified complication; E78.5 - Hyperlipidemia, unspecified Category: Medical Plan: Avoid foods that are high in cholesterol such as red meat, fried foods, eggs and baked goods. Triglyceride goal of less than 150 and LDL goal of less than 70. Continue on atorvastatin 80 (3) HTN (hypertension): Code(s): I10 - Essential (primary) hypertension Category: Medical Qualifiers: Hypertension type: essential hypertension Qualified Code(s): I10 - Essential (primary) hypertension Plan: Continue on current blood pressure medication. Avoid salt intake and encourage healthy diet and regular exercise. (4) DMII (diabetes mellitus, type 2): Code(s): E11.9 - Type 2 diabetes mellitus without complications Category: Medical Qualifiers: Diabetes mellitus complication status: without complication Diabetes mellitus intermediate project manager insulin use: without penitentiary use Qualified Code(s): E11.9 - Type 2 diabetes mellitus without complications Plan: Decrease the amount of carbohydrates such as pasta, bread, rice, and potatoes and limit the amount of sweets. Although fruits are generally healthy they should be eaten in moderation as they are still high in sugar. Hemoglobin A1c goal of less than 7%. A1c in the clinic today 6.5% no adjustment needed for her medications at this time. (5) PAD (peripheral artery disease): Code(s): I73.9 - Peripheral vascular disease, unspecified Category: Medical Plan: Patient currently following with vascular surgery for management of chronic ulcers. She has an appointment in the next few weeks at which time then we will determine further management. (6) Labile hypertension: Code(s): R09.89 - Other specified symptoms and signs involving the circulatory and respiratory systems Category: Medical Plan: Patient's blood pressure in the office has been normal for her last several visits. She does however mentioned her VNA has variable blood pressures when she has them done. Referral was placed to Nephrology for labile hypertension Plan A kidney specialist referral has been requested for further evaluation of her bl ood pressure variabilities. The patient?s diabetes is well-managed at present with her A1C reading at 6.5. Cutaneous concerns are addressed with dermatology, and awaiting biopsy results will guide future care decisions. I have approved her request for the yellow fever vaccine required for travel with no foreseeable interactions. Plans for malaria prophylaxis will be at the discretion of the travel clinic in accordance with the patient's preference. I have clearly relayed the importance of these measures with a tailored approach respecting her requirements and desires. This note was constructed using voice recognition software. While every effort has been made to ensure accuracy and bag shop worker, still areas may have been included sometimes these areas may affect the content or meeting of the given symptoms. Total time spent caring for the patient today was 20 minutes. This includes time spent before the visit reviewing the chart, time spent during the visit, and time spent after the visit and documentation. Patient was informed and verbally consented to the use of an ambient scribe for clinic note documentation during this visit. Orders: Orders AMB Hemoglobin A1c Today E11.69 - Type 2 diabetes mellitus with other specified complication, E78.5 - Hyperlipidemia, unspecified TDaP Immunization Today Z23 - Encounter for immunization Referrals Nephrology Referral R09.89 - Other specified symptoms and signs involving the circulatory and respiratory systems Medications: New clonidine HCl 0.2 mg PO TID 90 days 270 tabs 0RF Discontinued clonidine HCl Discontinued Reason: Doctor's Order 0.2 mg (2 x 0.1 mg) PO TID 90 tabs 3RF
[2025-01-23 13:51] VITALS: BP 120/72; PULSE 68; TEMP 36.2; O2SAT 97; BMI 39.5
--- OUTSIDE RECORDS SUMMARY | 2025-01-23 16:21 | XMS_ITS | Clinical Summary ---
Author Organization [address] [facility] Address [address] [place] [address] Phone Care Team Providers Care Scientific Writer Name Role Phone Lillian Velasco MD Primary Care Provider [phone] Social History Tobacco Use Types Packs/Day Years [...] 2:30 PM EDT Consult Orthopedic Surgery - [place] [id number] [phone] Bijan Dean, DPM [address] [address] Health Maintenance Due Date Last Done Comments [...] Insurance MEDICARE MEDICAID - [place] Care Teams Scientific Writer Relationship Specialty Start Date End Date Lillian eVlasco MD [address] [place] [address] , [address] [facility] Physician Associ D/B/A: [facility] CATIA Maldonado PCP - General Internal Medicine 11/26/24
--- OUTSIDE RECORDS SUMMARY | 2025-01-23 16:22 | XMS_ITS | Clinical Summary ---
Author Organization Unknown Care Team Providers Care Soup Mixer Name Role Phone NOELLE RUSSELL MD, REBECA Unavailable Unavailable CAITLIN RN, ADMISSION NURSE, MARC Unavail able Unavailable YI ALEXIS, CLINICAL SPECIALIST ICU, ELISHA Rosario available Unavailable CALIN MOTOR CHECKER, OLAMIDE Unavailable Unavailab richard BOWLING LPN, ANGÉLICA Unavailable Milly AVINA PT, DUANE Unavailable Unavailable TIMOTHY RN, CECI Unavailable Unavailable Payers Payer Name Policy Type Policy Number Effective Date Expira tion Date MEDICARE - [facility] [place] - PDGM [id number] Problems Condition Name Condition Details Condition Category [...] W/O RESID 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-09 00:00: 00 RESIDENTIAL (CURRENT) USE OF ASPIRIN Active 10-09 00:00: 00 RESIDENTIAL (CURRENT) USE OF 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 ICS/ANTIPLAT ELETS Active [...] 2023-10 00:00: 00 08-01 23:59 :00 No [id number] Per instruc tions TWICE A DAY FOR 7 DAYS Per instructio ns TWICE A DAY FOR 7 DAYS (route: oral) Med Classific ation: Anti-Infe ctive Agents ibuprofen 800 mg tablet 2023-10 00:00: 00 08-01 23:59 :00 No [id number] Per instruc tions EVERY 8 HOURS NEEDED Per instructio ns EVERY 8 HOURS NEEDED (route: oral) Med Classific ation: Analgesic , Anti-infl ammatory or Antipyret ic levofloxaci n 750 mg tablet 2023-10 00:00: 00 08-01 23:59 :00 No [id number] Per instruc tions EVERY DAY FOR 7 DAYS Per instructio ns EVERY DAY FOR 7 DAYS (route: oral) Med Classific ation: Anti-Infe ctive Agents methocarbam ol 500 mg tablet 2023-10 0 00:00: 00 08-01 23:59 :00 No [id number] Per instruc tions THREE TIMES A DAY NEEDED Per instructio ns THREE TIMES A DAY NEEDED (route: oral) Med Classific ation: Locomotor System clonidine HCl 0.2 mg tablet 2023-10 0 00:00: 00 08-01 23:59 :00 No [id number] Per instruc tions 3 TIMES A DAY Per instructio ns 3 TIMES A DAY (route: oral) Med Classific ation: Cardiovas cular Therapy Agents potassium chloride ER 20 mEq tablet,exte nded release 2023-10 00:00: 00 08-01 23:59 :00 No [id number] Per instruc tions EVERY DAY Per instructio ns EVERY DAY (route: oral) Med Classific ation: Electroly te Balance-N utritiona l Products Santyl 250 unit/gram topical ointment 07-04 00:00: 00 07-17 00:00 :00 No [id number] Per instruc tions Per instructio ns (route: topical) Med Classific ation: Dermatolo gical clonidine HCl 0.1 mg tablet 06-21 00:00: 00 07-17 00:00 :00 No [id number] Per instruc tions TWICE A DAY FOR 90 DAYS Per instructio ns TWICE A DAY FOR 90 DAYS (route: oral) Med Classific ation: Cardiovas cular Therapy Agents albuterol sulfate HFA 90 mcg/actuati on aerosol inhaler 2023-10 00:00: 00 08-01 23:59 :00 No [id number] 2 puff EVERY 6 HOURS 2 puff EVERY 6 HOURS (route: inhalation ) Med Classific ation: Respirato ry Therapy Agents Aspirin Childrens 81 mg chewable tablet 2023-10 00:00: 00 08-01 23:59 :00 No [id number] 1 tablet DAILY 1 tablet DAILY (route: oral) Med Classific ation: Hematolog ical Agents metformin 500 mg tablet 2023-10 00:00: 00 08-01 23:59 :00 No [id number] 1 tablet 2 TIMES DAILY 1 tablet 2 TIMES DAILY (route: oral) Med Classific ation: Endocrine tramadol 50 mg tablet 2023-10 00:00: 00 08-01 23:59 :00 No [id number] 1 tablet 2 TIMES DAILY 1 tablet 2 TIMES DAILY (route: oral) Med Classific ation: Analgesic , Anti-infl ammatory or Antipyret ic Vitamin D3 25 mcg (1,000 unit) capsule 2023-10 00:00: 00 08-01 23:59 :00 No [id number] 1 capsule DAILY 1 capsule DAILY (route: oral) Med Classific ation: Electroly te Balance-N utritiona l Products aspirin 81 mg tablet,claire yed release 2023-10 00:00: 00 01-13 00:00 :00 No [id number] 1 tablet DAILY 1 tablet DAILY (route: oral) Med Classific ation: Hematolog ical Agents betamethaso ne dipropionat e 0.05 % topical ointment 2023-10 00:00: 00 11-27 23:59 :00 No [id number] Per instruc tions DAILY Per instructio ns DAILY (route: topical) Med Classific ation: Dermatolo gical carvedilol 6.25 mg tablet 2023-10 00:00: 00 01-15 23:59 :00 No [id number] 1 tablet 2 TIMES DAILY 1 tablet 2 TIMES DAILY (route: oral) Med Classific ation: Cardiovas cular Therapy Agents clonidine HCl 0.2 mg tablet 2023-10 00:00: 00 Yes [id number] 1 tablet 3 TIMES DAILY 1 tablet 3 TIMES DAILY (route: oral) Med Classific ation: Cardiovas cular Therapy Agents losartan 50 mg tablet 2023-10 00:00: 00 Yes [id number] 1 tablet DAILY 1 tablet DAILY (route: oral) Med Classific ation: Cardiovas cular Therapy Agents naloxone 4 mg/actuatio n nasal spray 2023-10 00:00: 00 01-15 23:59 :00 No [id number] 1 spray DIRECTED 1 spray DIRECTED (route: nasal) Med Classific ation: Antidotes and other Reversal Agents tramadol 50 mg tablet 2023-10 0-27 00:00: 00 10-14 23:59 :00 No [id number] 1 tablet EVERY 6 HOURS 1 tablet EVERY 6 HOURS (route: oral) Med Classific ation: Analgesic , Anti-infl ammatory or Antipyret ic methocarbam ol 500 mg tablet 2023-10 00:00: 00 10-14 23:59 :00 No [id number] 1 tablet 3 TIMES DAILY 1 tablet 3 TIMES DAILY (route: oral) Med Classific ation: Locomotor System gabapentin 100 mg capsule 2023-10 00:00: 00 01-15 23:59 :00 No [id number] 1 capsule BEDTIME 1 capsule BEDTIME (route: oral) Med Classific ation: Central Nervous System Agents gentamicin 0.1 % topical ointment 2023-10 00:00: 00 10-14 23:59 :00 No [id number] Per instruc tions DAILY Per instructio ns DAILY (route: topical) Med Classific ation: Dermatolo gical cephalexin 500 mg capsule 2023-10 00:00: 00 10-14 23:59 :00 No [id number] 500 mg 4 TIMES DAILY 500 mg 4 TIMES DAILY (route: oral) Med Classific ation: Anti-Infe ctive Agents aspirin 81 mg tablet,claire yed release 2023-10 00:00: 00 Yes [id number] 1 tablet DAILY 1 tablet DAILY (route: oral) Med Classific ation: Hematolog ical Agents atorvastati n 80 mg tablet 2023-10 00:00: 00 Yes [id number] 1 tablet BEDTIME 1 tablet BEDTIME (route: oral) Med Classific ation: Cardiovas cular Therapy Agents betamethaso ne dipropionat e 0.05 % topical ointment 2023-10 00:00: 00 11-27 23:59 :00 No [id number] Per instruc tions DAILY Per instructio ns DAILY (route: topical) Med Classific ation: Dermatolo gical carvedilol 6.25 mg tablet 2023-10 00:00: 00 01-13 00:00 :00 No [id number] 1 tablet 2 TIMES DAILY 1 tablet 2 TIMES DAILY (route: oral) Med Classific ation: Cardiovas cular Therapy Agents clonidine HCl 0.2 mg tablet 2023-10 00:00: 00 01-13 00:00 :00 No [id number] 1 tablet 3 TIMES DAILY 1 tablet 3 TIMES DAILY (route: oral) Med Classific ation: Cardiovas cular Therapy Agents clopidogrel 75 mg tablet 2023-10 00:00: 00 Yes [id number] 1 tablet DAILY 1 tablet DAILY (route: oral) Med Classific ation: Hematolog ical Agents gabapentin 300 mg capsule 2023-10 00:00: 00 01-15 23:59 :00 No [id number] 1 capsule 2 TIMES DAILY 1 capsule 2 TIMES DAILY (route: oral) Med Classific ation: Central Nervous System Agents losartan 50 mg tablet 2023-10 00:00: 00 11-27 23:59 :00 No [id number] 0.5 tablet 2 TIMES DAILY 0.5 tablet 2 TIMES DAILY (route: oral) Med Classific ation: Cardiovas cular Therapy Agents methocarbam ol 500 mg tablet 2023-10 00:00: 00 10-14 23:59 :00 No [id number] 1 tablet 3 TIMES DAILY 1 tablet 3 TIMES DAILY (route: oral) Med Classific ation: Locomotor System morphine 15 mg immediate release tablet 2023-10 00:00: 00 10-14 23:59 :00 No [id number] 1 tablet EVERY 12 HOURS 1 tablet EVERY 12 HOURS (route: oral) Med Classific ation: Analgesic , Anti-infl ammatory or Antipyret ic naloxone 4 mg/actuatio n nasal spray 2023-10 00:00: 00 01-13 00:00 :00 No [id number] 1 spray O2 - PRN 1 spray O2 - PRN (route: nasal) Med Classific ation: Antidotes and other Reversal Agents oxycodone 5 mg tablet 2023-10 00:00: 00 10-14 23:59 :00 No [id number] 1 tablet EVERY 6 HOURS 1 tablet EVERY 6 HOURS (route: oral) Med Classific ation: Analgesic , Anti-infl ammatory or Antipyret ic betamethaso ne dipropionat e 0.05 % topical ointment 12-13 00:00: 00 Yes [id number] Per instruc tions DAILY Per instructio ns DAILY (route: topical) Med Classific ation: Dermatolo gical Vital Signs Vital Name Observation Time Observation Value Commen ts Temperature 2025-01-22 09:03:00.000 97.7 [degF] Temperature 2025-01-20 09:26:00.000 98.7 [degF] Temperature 2025-01-17 09:27:00.000 98 [degF] Temperature 2025-01-15 09:27:00.000 99.4 [degF] Temperature 2025-01-13 [...] [degF] Temperature 2024-12-02 11:04:00.000 97.8 [degF] Pulse 2025-01-22 09:03:00.000 54 /min Pulse 2025-01-20 09:26:00.000 62 /min Pulse 2025-01-17 09:27:00.000 66 /min Pulse 2025-01-15 09:27:00.000 69 /min Pulse 2025-01-13 [...] 2024-12-02 11:04:00.000 56 /min O2 Saturation (%) 2025-01-22 09:03:00.000 99 % O2 Saturation (%) 2025-01-20 09:26:00.000 99 % O2 Saturation (%) 2025-01-17 09:27:00.000 99 % O2 Saturation (%) 2025-01-15 09:27:00.000 97 % [...] Saturation (%) 2024-12-04 12:35:00.000 97 % Respirations 2025-01-22 09:03:00.000 14 /min Respirations 2025-01-20 09:26:00.000 16 /min Respirations 2025-01-17 09:27:00.000 16 /min Respirations 2025-01-15 09:27:00.000 14 /min Respirations 2025-01-13 [...] 2024-12-02 11:04:00.000 18 /min Systolic Blood Pressure 2025-01-22 09:26:00.000 162 mm [Hg] Systolic Blood Pressure 2025-01-20 09:49:00.000 154 mm [Hg] Systolic Blood Pressure 2025-01-17 09:27:00.000 111 mm [Hg] Systolic Blood Pressure 2025-01-15 09:27:00.000 152 mm [...] 11:04:00.000 142 mm [Hg] Diastolic Blood Pressure 2025-01-22 09:26:00.000 98 mm [Hg] Diastolic Blood Pressure 2025-01-20 09:49:00.000 99 mm [Hg] Diastolic Blood Pressure 2025-01-17 09:27:00.000 74 mm [Hg] Diastolic Blood Pressure 2025-01-15 09:27:00.000 [...] MAINTAIN SITUATIONAL AWARENESS AND WILL NOTIFY CLINICAL AD TAKER AND PHYSICIAN/PROVIDER WITH ANY CHANGE IN CONDITION. [code = SKILLED NURSE TO PERFORM ENVIRONMENTAL SAFETY RISK ASSESSMENT AND FALL RISK ASSESSMENT AND PROVIDE INSTRUCTION TO IMPLEMENT ENVIRONMENTAL SAFETY AND FALL PREVENTION STRATEGIES THROUGHOUT THE CERTIFICATION PERIOD. SKILLED NURSE WILL MAINTAIN SITUATIONAL AWARENESS AND WILL NOTIFY CLINICAL AD TAKER AND PHYSICIAN/PROVIDER WITH ANY CHANGE IN CONDITION.] [...] CARE WILL BE ESTABLISHED THAT MEETS PATIENT'S RESIDENTIAL NEEDS AND INCLUDES PATIENT GOAL FOR HOME [...] CECI AGUIRRE RN]:</paragraph><paragraph>ABNORMAL FINDINGS/SIGNIFICANT CHANGES VS WDL BP ELEVATED CARE COORDINATION DETAILS NONE SKILLED PROCEDURE PERFORMED THIS VISIT TEACHING, ASSESSMENT, WOUND CARE AND DRESSING CHANGE. NEXT PHYSICIAN/PROVIDER APPT 01/23/25 PCP 5. PLAN/FOLLOW-UP NEEDED FOR NEXT VISIT TEACHING, ASSESSMENT, WOUND CARE AND DRESSING CHANGE ADDRESS ABOVE APPROPRIATE IN NARRATIVE BELOW: CLIENT IS A PLEASANT LADY WHO LIVES IN AN APARTMENT WITH HER SON. CLIENT IS AO X4 AND ABLE TO MAKE NEEDS KNOWN. CLIENT DENIES ANY S/S INFECTION, CP, DIZZINESS, SOB OR PAIN. CLIENT INSTRUCTED ON SOME SIGNS OF INFECTION. CLIENT'S LUNGS ARE CLEAR TO AUSCULTATION BOWEL SOUNDS AUDIBLE IN ALL QUADRANTS. CLIENT SKIN IS WARM DRY AND INTACT WITHOUT EDEMA, WITH THE EXCEPTION OF HER RLE STILL HAS A WOUND HAS SCANT DRAINAGE. CLIENT IS VERY EXCITED AND LOOKING FORWARD TO HER WOUND HEALING AND BEING ABLE TO GET BACK TO NORMAL LIFE AGAIN. CLIENT INSTRUCTED TO CONTACT [facility] 01/05 WITH ANY ISSUES HEALTH CARE CONCERNS. CLIENT ACKNOWLEDGES UNDERSTANDING OF ALL.</paragraph> <paragraph>[Visit Date: 2024 by CECI AGUIRRE RN]:</paragraph><paragraph>ABNORMAL FINDINGS/SIGNIFICANT CHANGES VS WDL CARE COORDINATION DETAILS NONE SKILLED PROCEDURE PERFORMED THIS VISIT WOUND CARE AND DRESSING CHANGE NEXT PHYSICIAN/PROVIDER APPT 01/23/25 PCP PLAN/FOLLOW-UP NEEDED FOR NEXT VISIT TEACHING, ASSESSMENT, WOUND CARE AND DRESSING CHANGE ADDRESS ABOVE APPROPRIATE IN NARRATIVE BELOW: CLIENT AO X4 AND ABLE TO MAKE NEEDS KNOWN. CLIENT DENIES CURRENT S/S OR DISSECTION, CP, DIZZINESS, SOB ARM PAIN. CLIENT'S LUNGS SOUNDS ARE CLEAR TO AUSCULTATION AND BOWEL SOUNDS PRESENT IN ALL QUADRANTS. CLIENT SKIN IS WARM DRY WITH BILATERAL LOWER EXTREMITY WOUNDS LLE WOUND IS PREDOMINANTLY HEEL RLE WOUND IS STILL BEING TREATED AND TAKEN CARE OF WITH SCANT DRAINAGE. CLIENT HAS AN APPOINTMENT THIS WEEK WITH HER PCP AND SHE WILL INQUIRE ABOUT ADJUSTMENTS TO HER BP MEDS SINCE HER BP TENDS TO RUN HIGH. CLIENT INSTRUCTED TO CONTACT [facility] / WITH ANY ISSUES OR HEALTH CARE NEEDS. CLIENT ACKNOWLEDGES UNDERSTANDING OF ALL.</paragraph> <paragraph>[Visit Date: 2024 by CECI AGUIRRE RN]:</paragraph><paragraph>ABNORMAL FINDINGS/SIGNIFICANT CHANGES VS WDL CARE COORDINATION DETAILS NONE SKILLED PROCEDURE PERFORMED THIS VISIT ASSESSMENT, TEACHING, WOUND CARE AND DRESSING CHANGE NEXT PHYSICIAN/PROVIDER APPT UNKNOWN PLAN/FOLLOW-UP NEEDED FOR NEXT VISIT ASSESSMENT, TEACHING, WOUND CARE AND DRESSING CHANGE. ADDRESS ABOVE APPROPRIATE IN NARRATIVE BELOW: CLIENT AO X4 AND ABLE TO MAKE NEEDS KNOWN CLIENT DENIES S/S INFECTION, CP, DIZZINESS, SOB OR PAIN. CLIENT LUNG SOUNDS ARE CLEAR TO AUSCULTATION AND BOWEL SOUNDS AUDIBLE IN ALL QUADRANTS. CLIENT SKIN IS WARM DRY AND INTACT WITH EXCEPTION OF WOUND ON HER RLE AND LLE CONTINUES TO REMAIN INTACT. CLIENT INSTRUCTED TO CONTACT [facility] 01/05 WITH ANY HEALTH CARE CONCERNS OR ISSUES. CLIENT ACKNOWLEDGES UNDERSTANDING OF ALL.</paragraph> Encounters Start Date/Time End Date/Time Encounter Type Admission Type Attending [facility] Care Department Encounter ID Discharge Date Discharge Status Discharge Condition Discharge Reason Percent Goals Met 2024-08-04 00:00:00 2025-01-30 00:00:00 Outpatient RECERTIFIC ATION CECI AGUIRRE [facility] [id number] 38.46
== END 2025-01-23 14:36 | disposition home or self-care (01) ==
LOC: HO.HMCH 13:22
PROVIDERS: PCP Internal Medicine
DX: E11.69 Type 2 diabetes mellitus with other specified complication (principal); I63.9 Cerebral infarction, unspecified; E11.51 Type 2 diabetes mellitus with diabetic peripheral angiopathy without gangrene; I73.9 Peripheral vascular disease, unspecified; E78.5 Hyperlipidemia, unspecified; I10 Essential (primary) hypertension; R09.89 Other specified symptoms and signs involving the circulatory and respiratory systems; Z23 Encounter for immunization

== ENCOUNTER → 2025-01-23 13:22 | Outpatient (BNVA) | payer MEDICARE, SELFPAY | PROVIDERS: PCP Internal Medicine | DX: E11.69 Type 2 diabetes mellitus with other specified complication (principal); E78.5 Hyperlipidemia, unspecified; Z23 Encounter for immunization; I10 Essential (primary) hypertension; I73.9 Peripheral vascular disease, unspecified; R09.89 Other specified symptoms and signs involving the circulatory and respiratory systems; Z86.73 Personal history of transient ischemic attack (TIA), and cerebral infarction without residual deficits; Z79.82 Long term (current) use of aspirin; Z79.899 Other long term (current) drug therapy | CPT/HCPCS: 83036; 90471; 90715; 99212 ==

== ENCOUNTER 2025-02-04 10:46 | Outpatient (AMB) | payer MEDICARE, MEDICAID, SELFPAY ==
[2025-02-04 11:00] VITALS: BP 132/84; PULSE 77; O2SAT 98; BMI 41.3
--- NOTE | 2025-02-04 11:00 | HO.NEPHOV_ITS ---
Vital Signs 02/04/25 11:00 Height 5 ft 7 in Weight 264 lb BMI 41.3 BP 132/84 Blood Pressure Location Rt brachial Position Sitting Pulse 77 Pulse Source Pulse Oximeter Pulse Oximetry (%) 98 Oxygen Delivery Method Room Air Intake Visit Reasons: INT: Other specified symptoms Allergies amlodipine Allergy (Intermediate, Verified 02/04/25 11:02) drowsiness, swelling of feet and ankles lisinopril Allergy (Intermediate, Verified 02/04/25 11:02) cough hydralazine Allergy (Verified 02/04/25 11:02) Swelling metformin Adverse Reaction (Verified 02/04/25 11:02) Diarrhea Lisinopril-Hydrochlorothiazide Adverse Reaction (Intermediate, Uncoded 02/04/25 11:02) Leg swelling Metoprolol Tartrate Adverse Reaction (Intermediate, Uncoded 02/04/25 11:02) Leg swelling Medication List - Last Reconciled 02/04/25 by Velasquez Zepeda MD albuterol sulfate 90 mcg/actuation 2 puffs inhalation Q6H PRN aspirin (Adult Aspirin Regimen) 81 mg PO DAILY 90 days atorvastatin 80 mg PO BEDTIME 90 days blood sugar diagnostic (Freestyle [employer] strips) USe 1 test strip once a day blood-glucose meter (Freestyle [employer] meter) As directed carvedilol 6.25 mg See Protocol PO BID cholecalciferol (vitamin D3) 25 mcg PO DAILY clonidine HCl 0.2 mg PO TID 90 days compr.stocking,knee,long,large As directed losartan 100 mg PO DAILY 90 days sodium chlor-hypochlorous acid 0.033 % (Vashe) 1 irrig irrigation Q3-4H PRN 30 days HPI Comments Details: Paris is a pleasant 69-year-old woman with a history of longstanding hypertension. She has been referred for evaluation of hypertension. She has had multiple hospitalizations for hypertension. She has intolerance to various antihypertensive medications. Recently she was found to have hypokalemia with resistant hypertension and hence this evaluation. She was history of diabetes mellitus and venous ulcers as well. [facility] Medical History Hypertension Wound of lower extremity Venous stasis ulcer Chronic ulcer of left ankle Diabetes Hypertension Abnormal Pap smear of cervix Diabetes mellitus Hypertension Renal calculi Diastasis recti Dyslipidemia associated with type 2 diabetes mellitus Abdominal mass Microalbuminuria Renal calculi Morbid obesity Surgical History Hx of prior ablation treatment Family History Father Seizures Mother Seizures Congenital heart disease in adult Hypotension Maternal Grandfather Leukemia Social History Household Members: Family Housing: House Do you presently have visiting nurse or other home services: No Alcohol intake: current Alcohol intake frequency: holidays/special occasions only Alcohol type: wine Patient Tobacco Use Status: Former Tobacco user Tobacco use type: Cigarette e-Cigarette/Vaping Use: Never Used Second Hand Smoke Exposure: No Substance Use Type: Marijuana service: No Current occupational status: employed Current occupational exposures/hazards: No Cognitive needs: No Hearing needs: No Vision needs: No Review of Systems Const Denies fever(s) and Denies weight loss Card Denies chest pain Resp Denies cough and Denies hemoptysis GI Denies abdominal pain, Denies diarrhea and Denies nausea Musc Denies back pain Neuro Denies focal weakness Physical Exam Vital Signs: Last Vital Signs Pulse 77 02/04/25 11:00 BP 132/84 02/04/25 11:00 Pulse Ox 98 02/04/25 11:00 Oxygen Delivery Method Room Air 02/04/25 11:00 BMI result Body Mass Index 41.3 Comfortable Neck supple no JVD. Lungs entry equal no rales. Heart S1-S2 heard no gallop or rub. Abdomen soft nontender. Neuro alert awake oriented. No asterixis. Extremities no edema. Results Reviewed Results Reviewed: All labs reviewed In July 2024 venous pH was 7.44. She has had multiple episodes of hypokalemia Nephrology Results: Hgb 11.6 g/dl (12.0-16.0) L 02/04/25 WBC 6.8 X10*3/uL (4.8-10.8) 02/04/25 Plt Count 199 X10*3/uL (160-400) 02/04/25 Sodium 141 mmol/L (135-145) 02/04/25 Potassium 4.1 mmol/L (3.3-5.1) 02/04/25 Chloride 106 mmol/L (96-108) 02/04/25 Carbon Dioxide 29 mmol/L (22-29) 02/04/25 BUN 19 mg/dL (9-16) H 02/04/25 Creatinine 0.74 mg/dL (0.5-1.4) 02/04/25 Calcium 9.1 mg/dL (8.4-10.2) 02/04/25 Assessment & Plan Assessment & Plan (1) HTN (hypertension): Code(s): I10 - Essential (primary) hypertension Category: Medical Qualifiers: Hypertension type: essential hypertension Qualified Code(s): I10 - Essential (primary) hypertension (2) Hypokalemia: Code(s): E87.6 - Hypokalemia Category: Medical Plan 69-year-old man with resistant hypertension with hypokalemia and increased BMI. Given the history of hypokalemia and alkalosis hyperaldosteronism should be ruled out. Obstructive sleep apnea could be a contributing factor in this needs to be screened for. Elevated BMI would be a contributing factor as well. Plan Obtain 24 hour ambulatory blood pressure monitoring Check serum aldosterone and plasma renin activity. Since blood pressure is in the normal range I have not made any changes to her antihypertensive regimen. Encouraged her to stay on low-sodium diet Further workup will be based on the outcome of the above investigations. . Orders: Orders Aldosterone Today E87.6 - Hypokalemia, I10 - Essential (primary) hypertension Renin Today E87.6 - Hypokalemia, I10 - Essential (primary) hypertension Comprehensive Met. Panel Today E87.6 - Hypokalemia, I10 - Essential (primary) hypertension AMB 24 HR B/P Monitor PLACEMENT Today I10 - Essential (primary) hypertension Aldost/Renin Today E87.6 - Hypokalemia, I10 - Essential (primary) hypertension Catecholamines, Frac., Plasma Today E87.6 - Hypokalemia, I10 - Essential (primary) hypertension Complete Blood Count Auto Diff Today E87.6 - Hypokalemia, I10 - Essential (primary) hypertension Coding Level of Care Code New Pt Level 4 (31225) Diagnoses Essential hypertension I10 Hypertension type: essential hypertension Hypokalemia E87.6
--- OUTSIDE RECORDS SUMMARY | 2025-02-04 12:29 | XMS_ITS | Clinical Summary ---
Author Organization [address] [place] [address] [place] [phone] Phone Care Team Providers Care Health Evaluator Name Role Phone Lillian Velasco MD Primary Care Provider [phone] Encounters Date Type Department Care Team Description 01/30/2025 2:30 PM EDT Consult Orthopedic [address] [phone] Bijan Dean, JANET Dermatophytosis of nail (Primary Dx); Type 2 diabetes mellitus without complications (CMS/HCC V24, CMS/HCC V28); Pain in toe of right foot; Pain in toe of left foot; Diabetic mononeuropathy simplex (CMS/HCC V24, CMS/HCC V28); Type II diabetes mellitus with peripheral circulatory disorder (CMS/HCC V24, CMS/HCC V28) from Last 3 Months Social History Tobacco Use Types Packs/Day Years Used Date Smoking Tobacco: Never Assessed Comments Unknown Sex and Gender Information Value Date Recorded Sex Assigned at Not on file Legal Sex Female 10:36 AM EST Gender Identity Female 01/30/2025 2:11 PM EDT Sexual Orientation Not on file Last Filed Vital Signs Vital Sign Reading Time Taken Comments Blood Pressure - - Pulse - - Temperature - - Respiratory Rate - - Oxygen Saturation - - Inhaled Oxygen Concentration - - Weight 113 kg (250 lb) 01/30/2025 3:21 PM EDT Height 170.2 cm (5' 7 ) 01/30/2025 3:21 PM EDT Body Mass Index 39.16 01/30/2025 3:21 PM EDT Plan of Treatment Upcoming Encounters Date Type Department Care Team ([facility] Contact Info) Description 04/15/2025 10:00 AM EDT Office Visit Orthopedic Surgery [place] [id number] [phone] Bijan Dean, DPM [address] [address] Health Maintenance Due Date Last Done Comments Breast Cancer Screening 1955 Diabetes: Annual GFR (Glomerular Filtration Rate) 1955 Diabetes: Annual Foot Exam 02/13/1966 Diabetes: Annual Retina Eye Exam 02/13/1966 Pneumococcal Vaccine: 50+ Years (1 of 2 - PCV) 02/13/1975 Zoster Vaccines (1 of 2) 02/13/2006 RSV Immunization Adult Patients (1 - Risk 60-74 years 1-dose series) 2016 COVID-19 Vaccine (2023-2 5 season) 2024 Cholesterol Screening (Lipid Panel) 11/26/2024 Colorectal Cancer Screening: Colonoscopy 11/26/2024 Depression Screening 11/26/2024 Diabetes: Annual Urine Albumin-Creatinine Ratio (uACR) 11/26/2024 Diabetes: Blood Sugar Contro l Test (HGBA1C) 11/26/2024 Falls Risk Assessment 11/26/2024 Medicare Annual Wellness Visit 11/26/2024 Osteoporosis Screening (Bone Density Screening) 11/26/2024 Social Influencers of Health Screening 11/26/2024 Hypertension/CHF/CAD Annual BMP Blood Test 01/30/2025 Influenza Vaccine (Season Ended) 2025 DTaP,Tdap,and Td Vaccines (4 - Td or Tdap) 01/23/2035 01/23/2025, 09/16/2016, 01/20/2011 Hepatitis C Screening Completed 07/07/2024 HIB Vaccines Aged Out No longer eligi [...] to complete this topic RSV Immunization Patients Under 20 months Aged Out No longer eligible b ased on patient's age to complete this topic Varicella Vaccines Aged Out No longer eligible based on patient's age to complete this topic Insurance MEDICARE [place]ICA[place] - [place] Care Teams Health Evaluator Relationship Specialty Start Date End Date Lillian Velasco MD [address] [place] [address] , [address] [facility]A: [facility] [place], [place] PCP - General Internal Medicine 11/26/24
--- OUTSIDE RECORDS SUMMARY | 2025-02-04 12:29 | XMS_ITS | Clinical Summary ---
Author Organization Unknown Care Team Providers Care Tier Over Name Role Phone NOELLE RUSSELL MD, REBECA Unavailable Unavailable CAITLIN RN, ADMISSION NURSE, MARC Unavail able Unavailable YI ALEXIS, CLINICAL COTTON FEEDER, ELISHA Rosario available Unavailable CALIN ADULT REMEDIAL EDUCATION INSTRUCTOR, OLAMIDE Unavailable Unavailab richard BOWLING LPN, ANGÉLICA Unavailable Unacortney AVINA PT, DUANE Unavailable Unavailable TIMOTHY RN, CECI Unavailable Unavailable Payers Payer Name Policy Type Policy Number Effective Date Expira tion Date MEDICARE - [facility] - PD [id number] Problems Condition Name Condition Details Condition Category Status Onset Date Resolution Date Last Treatment Date Treating Clinician Comments VENOUS INSUFFICIENC Y (CHRONIC) (PERIPHERAL) Active 10-09 00:00: 00 NON-PRESSURE CHRONIC ULCER OTH PRT R LOW LEG W UNSP SEVERITY Active 10-09 00:00: 00 TYPE 2 DIABETES [...] 00 HYPOTENSION, UNSPECIFIED Active 10-09 00:00: 00 PERSONAL HISTORY OF NICOTINE DEPENDENCE Active 10-09 00:00: 00 Problems related to health literacy Active 10-09 00:00: 00 PRSNL HX OF TIA (TIA), AND CEREB INFRC W/O RESID 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-09 00:00: 00 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 Active 10-09 00:00: 00 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 ICS/ANTIPLAT ELETS Active [...] 2023-10 00:00: 00 08-01 23:59 :00 No [id number] Per instruc tions TWICE A DAY FOR 7 DAYS Per instructio ns TWICE A DAY FOR 7 DAYS (route: oral) Med Classific ation: Anti-Infe ctive Agents ibuprofen 800 mg tablet 2023-10 00:00: 00 08-01 23:59 :00 No [id number] Per instruc tions EVERY 8 HOURS NEEDED Per instructio ns EVERY 8 HOURS NEEDED (route: oral) Med Classific ation: Analgesic , Anti-infl ammatory or Antipyret ic levofloxaci n 750 mg tablet 2023-10 00:00: 00 08-01 23:59 :00 No [id number] Per instruc tions EVERY DAY FOR 7 DAYS Per instructio ns EVERY DAY FOR 7 DAYS (route: oral) Med Classific ation: Anti-Infe ctive Agents methocarbam ol 500 mg tablet 2023-10 00:00: 00 08-01 23:59 :00 No [id number] Per instruc tions THREE TIMES A DAY NEEDED Per instructio ns THREE TIMES A DAY NEEDED (route: oral) Med Classific ation: Locomotor System clonidine HCl 0.2 mg tablet 2023-10 00:00: 08-01 23:59 :00 No [id number] Per instruc tions 3 TIMES A DAY Per instructio ns 3 TIMES A DAY (route: oral) Med Classific ation: Cardiovas cular Therapy Agents potassium chloride ER 20 mEq tablet,exte nded release 2023-10 00:00: 00 08-01 23:59 :00 No [id number] Per instruc tions EVERY DAY Per instructio ns EVERY DAY (route: oral) Med Classific ation: Electroly te Balance-N utritiona l Products Santyl 250 unit/gram topical ointment 07-04 00:00: 00 07-17 00:00 :00 No [id number] Per instruc tions Per instructio ns (route: topical) Med Classific ation: Dermatolo gical clonidine HCl 0.1 mg tablet 06-21 00:00: 00 07-17 00:00 :00 No [id number] Per instruc tions TWICE A DAY FOR 90 DAYS Per instructio ns TWICE A DAY FOR 90 DAYS (route: oral) Med Classific ation: Cardiovas cular Therapy Agents albuterol sulfate HFA 90 mcg/actuati on aerosol inhaler 2023-10 00:00: 00 08-01 23:59 :00 No [id number] 2 puff EVERY 6 HOURS 2 puff EVERY 6 HOURS (route: inhalation ) Med Classific ation: Respirato ry Therapy Agents Aspirin Childrens 81 mg chewable tablet 2023-10 00:00: 00 08-01 23:59 :00 No [id number] 1 tablet DAILY 1 tablet DAILY (route: oral) Med Classific ation: Hematolog ical Agents metformin 500 mg tablet 2023-10 00:00: 00 08-01 23:59 :00 No [id number] 1 tablet 2 TIMES DAILY 1 tablet 2 TIMES DAILY (route: oral) Med Classific ation: Endocrine tramadol 50 mg tablet 2023-10 00:00: 00 08-01 23:59 :00 No [id number] 1 tablet 2 TIMES DAILY 1 tablet 2 TIMES DAILY (route: oral) Med Classific ation: Analgesic , Anti-infl ammatory or Antipyret ic Vitamin D3 25 mcg (1,000 unit) capsule 2023-10 00:00: 00 08-01 23:59 :00 No [id number] 1 capsule DAILY 1 capsule DAILY (route: oral) Med Classific ation: Electroly te Balance-N utritiona l Products aspirin 81 mg tablet,claire yed release 2023-10 00:00: 00 01-13 00:00 :00 No [id number] 1 tablet DAILY 1 tablet DAILY (route: oral) Med Classific ation: Hematolog ical Agents betamethaso ne dipropionat e 0.05 % topical ointment 2023-10 00:00: 00 11-27 23:59 :00 No [id number] Per instruc tions DAILY Per instructio ns DAILY (route: topical) Med Classific ation: Dermatolo gical carvedilol 6.25 mg tablet 2023-10 00:00: 00 01-15 23:59 :00 No [id number] 1 tablet 2 TIMES DAILY 1 tablet 2 TIMES DAILY (route: oral) Med Classific ation: Cardiovas cular Therapy Agents clonidine HCl 0.2 mg tablet 2023-10 00:00: 00 Yes [id number] 1 tablet 3 TIMES DAILY 1 tablet 3 TIMES DAILY (route: oral) Med Classific ation: Cardiovas cular Therapy Agents losartan 50 mg tablet 2023-10 00:00: 00 Yes [id number] 1 tablet DAILY 1 tablet DAILY (route: oral) Med Classific ation: Cardiovas cular Therapy Agents naloxone 4 mg/actuatio n nasal spray 2023-10 00:00: 00 01-15 23:59 :00 No [id number] 1 spray DIRECTED 1 spray DIRECTED (route: nasal) Med Classific ation: Antidotes and other Reversal Agents tramadol 50 mg tablet 2023-10 00:00: 00 10-14 23:59 :00 No [id number] 1 tablet EVERY 6 HOURS 1 tablet EVERY 6 HOURS (route: oral) Med Classific ation: Analgesic , Anti-infl ammatory or Antipyret ic methocarbam ol 500 mg tablet 2023-10 00:00: 00 10-14 23:59 :00 No [id number] 1 tablet 3 TIMES DAILY 1 tablet 3 TIMES DAILY (route: oral) Med Classific ation: Locomotor System gabapentin 100 mg capsule 2023-10 00:00: 00 01-15 23:59 :00 No [id number] 1 capsule BEDTIME 1 capsule BEDTIME (route: oral) Med Classific ation: Central Nervous System Agents gentamicin 0.1 % topical ointment 2023-10 00:00: 00 10-14 23:59 :00 No [id number] Per instruc tions DAILY Per instructio ns DAILY (route: topical) Med Classific ation: Dermatolo gical cephalexin 500 mg capsule 2023-10 00:00: 00 10-14 23:59 :00 No [id number] 500 mg 4 TIMES DAILY 500 mg 4 TIMES DAILY (route: oral) Med Classific ation: Anti-Infe ctive Agents aspirin 81 mg tablet,claire yed release 2023-10 00:00: 00 Yes [id number] 1 tablet DAILY 1 tablet DAILY (route: oral) Med Classific ation: Hematolog ical Agents atorvastati n 80 mg tablet 2023-10 00:00: 00 Yes [id number] 1 tablet BEDTIME 1 tablet BEDTIME (route: oral) Med Classific ation: Cardiovas cular Therapy Agents betamethaso ne dipropionat e 0.05 % topical ointment 2023-10 00:00: 00 11-27 23:59 :00 No [id number] Per instruc tions DAILY Per instructio ns DAILY (route: topical) Med Classific ation: Dermatolo gical carvedilol 6.25 mg tablet 2023-10 00:00: 00 01-13 00:00 :00 No [id number] 1 tablet 2 TIMES DAILY 1 tablet 2 TIMES DAILY (route: oral) Med Classific ation: Cardiovas cular Therapy Agents clonidine HCl 0.2 mg tablet 2023-10 00:00: 00 01-13 00:00 :00 No [id number] 1 tablet 3 TIMES DAILY 1 tablet 3 TIMES DAILY (route: oral) Med Classific ation: Cardiovas cular Therapy Agents clopidogrel 75 mg tablet 2023-10 00:00: 00 Yes [id number] 1 tablet DAILY 1 tablet DAILY (route: oral) Med Classific ation: Hematolog ical Agents gabapentin 300 mg capsule 2023-10- 00:00: 00 01-15 23:59 :00 No [id number] 1 capsule 2 TIMES DAILY 1 capsule 2 TIMES DAILY (route: oral) Med Classific ation: Central Nervous System Agents losartan 50 mg tablet 2023-10 00:00: 00 11-27 23:59 :00 No [id number] 0.5 tablet 2 TIMES DAILY 0.5 tablet 2 TIMES DAILY (route: oral) Med Classific ation: Cardiovas cular Therapy Agents methocarbam ol 500 mg tablet 2023-10 00:00: 00 10-14 23:59 :00 No [id number] 1 tablet 3 TIMES DAILY 1 tablet 3 TIMES DAILY (route: oral) Med Classific ation: Locomotor System morphine 15 mg immediate release tablet 2023-10 00:00: 00 10-14 23:59 :00 No [id number] 1 tablet EVERY 12 HOURS 1 tablet EVERY 12 HOURS (route: oral) Med Classific ation: Analgesic , Anti-infl ammatory or Antipyret ic naloxone 4 mg/actuatio n nasal spray 2023-10 00:00: 00 01-13 00:00 :00 No [id number] 1 spray O2 - PRN 1 spray O2 - PRN (route: nasal) Med Classific ation: Antidotes and other Reversal Agents oxycodone 5 mg tablet 2023-10 00:00: 00 10-14 23:59 :00 No [id number] 1 tablet EVERY 6 HOURS 1 tablet EVERY 6 HOURS (route: oral) Med Classific ation: Analgesic , Anti-infl ammatory or Antipyret ic betamethaso ne dipropionat e 0.05 % topical ointment 07 00:00: 00 Yes [id number] Per instruc tions DAILY Per instructio ns DAILY (route: topical) Med Classific ation: Dermatolo gical Immunizations Ordered Immunization Name Filled Immunization Name Date Status Comments Refusal Reason TETANUS, TDAP (TETANUS) 2025-01-23 00:00:00 Vital Signs Vital Name Observation Time Observation Value Commen ts Temperature 2025-02-03 09:51:00.000 98 [degF] Temperature 2025-01-31 09:39:00.000 97.2 [degF] Pulse 2025-02-03 09:51:00.000 61 /min Pulse 2025-01-31 09:39:00.000 60 /min O2 Saturation (%) 2025-02-03 09:51:00.000 100 % O2 Saturation (%) 2025-01-31 09:39:00.000 98 % Respirations 2025-02-03 09:51:00.000 16 /min Respirations 2025-01-31 09:39:00.000 18 /min Systolic Blood Pressure 2025-02-03 09:51:00.000 165 mm [Hg] Systolic Blood Pressure 2025-01-31 09:39:00.000 130 mm [Hg] Diastolic Blood Pressure 2025-02-03 09:51:00.000 112 m m[Hg] Diastolic Blood Pressure 2025-01-31 09:39:00.000 88 mm [Hg] Plan of Treatment Planned Activity [...] GOAL FOR HOME HEALTH.] Future Scheduled Test NEED FOR S KILLED TEACHING AND INTERVENTION RELATED TO VENOUS STASIS ULCER TO R LOWER LEGS SKILLED NURSE OR TRAINED PATIENT/CAREGIVER TO PERFORM DRESSING CHANGE TO VENOUS ULCER R LEG, USING CLEAN TECHNIQUE CLEANSE WOUND WITH VASHE OR STERILE WATER, PAT DRY, BARRIER OINTMENT TO PERIWOUND, NON STICK DSG, BANDAR, TAPE. RIGHT LEG, WASH WITH VASHE OR STERILE WATER, PAT DRY, APPLY XEROFORM TO WOUND BED, BARRIER OINTMENT TO PERWOUND, COVER WITH NONSTICK DSG, WRAP WITH KERLIX, TAPE. R LEG BETHAMETASONE AUG 0.05% TO APPLY TO SKIN AROUND THE WOUND X 2 WEEK. BY SN AND PT/CG AND PRN WHEN LOOSE OR SOILED. ORDERED BY DERMATOLOGY WOUND CARE TO BE DONE 3 TIMES [...] DISCONTINUE WOUND CARE/SUPPLIES ONCE WOUND IS HEALED. WOUND CARE PROVIDED ORDERED. PATIENT TOLERATED WELL. ... [code = NEED FOR SKILLED TEACHING AND INTERVENTION RELATED TO VENOUS STASIS ULCER TO R LOWER LEGS SKILLED NURSE OR TRAINED PATIENT/CAREGIVER TO PERFORM DRESSING CHANGE TO VENOUS ULCER R LEG, USING CLEAN TECHNIQUE CLEANSE WOUND WITH VASHE OR STERILE WATER, PAT DRY, BARRIER OINTMENT TO PERIWOUND, NON STICK DSG, BANDAR, TAPE. RIGHT LEG, WASH WITH VASHE OR STERILE WATER, PAT DRY, APPLY XEROFORM TO WOUND BED, BARRIER OINTMENT TO PERWOUND, COVER WITH NONSTICK DSG, WRAP WITH KERLIX, TAPE. R LEG BETHAMETASONE AUG 0.05% TO APPLY TO SKIN AROUND THE WOUND X 2 WEEK. BY SN AND PT/CG AND PRN WHEN LOOSE OR SOILED. ORDERED BY DERMATOLOGY WOUND CARE TO BE DONE 3 TIMES [...] DISCONTINUE WOUND CARE/SUPPLIES ONCE WOUND IS HEALED. WOUND CARE PROVIDED ORDERED. PATIENT TOLERATED WELL. ...] Future Scheduled Test SKILLED NU RSE TO OBTAIN BLOOD SUGAR PRN FOR SIGNS AND SYMPTOMS OF HYPO/HYPERGLYCEMIA. IF OBTAINED BY PATIENT/CAREGIVER PRIOR TO VISIT AND PATIENT IS NOT SYMPTOMATIC, SKILLED NURSE TO RECORD READING FROM PATIENT LOG. [code = SKILLED NURSE TO OBTAIN BLOOD SUGAR PRN FOR SIGNS AND SYMPTOMS OF HYPO/HYPERGLYCEMIA. IF OBTAINED BY PATIENT/CAREGIVER PRIOR TO VISIT AND PATIENT IS NOT SYMPTOMATIC, SKILLED NURSE TO RECORD READING FROM PATIENT LOG.] Future Scheduled Test SKILLED NU RSE FOR [...] SYMPTOMS HYPO/HYPERGLYCEMIA TO REPORT.] Future Scheduled Test PATIENT NINO S A [...] MAINTAIN SITUATIONAL AWARENESS AND WILL NOTIFY CLINICAL APPLIQUE CUTTER AND PHYSICIAN/PROVIDER WITH ANY CHANGE IN CONDITION. [code = SKILLED NURSE TO PERFORM ENVIRONMENTAL SAFETY RISK ASSESSMENT AND FALL RISK ASSESSMENT AND PROVIDE INSTRUCTION TO IMPLEMENT ENVIRONMENTAL SAFETY AND FALL PREVENTION STRATEGIES THROUGHOUT THE CERTIFICATION PERIOD. SKILLED NURSE WILL MAINTAIN SITUATIONAL AWARENESS AND WILL NOTIFY CLINICAL APPLIQUE CUTTER AND PHYSICIAN/PROVIDER WITH ANY CHANGE IN CONDITION.] [...] Test SKILLED NU RSE TO REVIEW PATIENT MEDICATIONS (PRESCRIPTION/OTC). INSTRUCT PATIENT/CAREGIVER ON ALL MEDICATIONS INCLUDING PURPOSE, WHEN TO TAKE, IMPORTANCE OF MEDICATION ADHERENCE, MONITORING OF EFFECTIVENESS, ADVERSE DRUG REACTIONS, POSSIBLE SIDE EFFECTS, AND WHEN TO NOTIFY AGENCY OR PHYSICIAN/PROVIDER OF ANY CONCERNS. [code = SKILLED NURSE TO REVIEW PATIENT MEDICATIONS (PRESCRIPTION/OTC). INSTRUCT PATIENT/CAREGIVER ON ALL MEDICATIONS INCLUDING PURPOSE, WHEN TO TAKE, IMPORTANCE OF MEDICATION ADHERENCE, MONITORING OF EFFECTIVENESS, ADVERSE DRUG REACTIONS, POSSIBLE SIDE EFFECTS, AND WHEN TO NOTIFY AGENCY OR PHYSICIAN/PROVIDER OF ANY CONCERNS.] Goal Patient Goal - WOUNDS TO HEA L Goal 2024-11-27 Patient Goal - WOUNDS TO HEA L Goal 2024-09-30 Patient Goal - WOUNDS TO HEA L Goal 2024-09-20 Patient Goal - WOUNDS TO HEA L Goal 2025-01-27 Patient Goal - WOUNDS TO HEA L Goal Provider Goal - A PLAN OF CARE WILL BE ESTABLISHED THAT MEETS PATIENT'S HALFWAY NEEDS AND INCLUDES PATIENT GOAL FOR HOME HEALTH. Goal Provider Goal - WOUND CARE WILL [...] BY THE END OF THE CERTIFICATION PERIOD. Progress Notes Progress Notes <paragraph>[Visit Date: 2024 by CECI AGUIRRE RN]:</paragraph><paragraph>1. ABNORMAL FINDINGS/SIGNIFICANT CHANGES BP ELEVATED MD CONTACTED; NO NEW ORDERS RECEIVED 2. CARE COORDINATION DETAILS MD CONTACTED IN REGARDS TO ELEVATED BP 165/115 NO NEW ORDERS RECEIVE. 3. SKILLED PROCEDURE PERFORMED THIS VISIT WOUND CARE AND ASSESSMENT 4. NEXT PHYSICIAN/PROVIDER APPT 02/04/25 KIDNEY MD 02/06/25 VASCULAR 5. PLAN/FOLLOW-UP NEEDED FOR NEXT VISIT ASSESSMENT AND WOUND CARE ADDRESS ABOVE APPROPRIATE IN NARRATIVE BELOW: CLIENT IS A PLEASANT LADY THAT IS AO X4 AND ABLE TO MAKE NEEDS KNOWN. CLIENT'S BP WAS ELEVATED 165/115 AND SHE DOES TEND TO BOUNCE AROUND LIKE THAT ON OCCASION MD IS AWARE, BECAUSE I CONTACTED HIM IN THE PAST ABOUT THE SAME ISSUE WITHOUT A CALLBACK, BUT I STILL CONTACTED THE OFFICE AGAIN IN REGARDS TO IT AND NO NEW ORDERS RECEIVED. ALSO NEED MEDICATION RECONCILIATION PATIENT ADVISES SHE DOES NOT TAKE PLAVIX ANY LONGER. CLIENT DOES HAVE A VISIT WITH THE KIDNEY DOCTOR TOMORROW IN ORDER TO SEE WHAT'S GOING ON WITH HER BP FLUCTUATING SO MUCH. CLIENT DENIES ANY S/S OF INFECTION, CP, DIZZINESS, OR SOB. CLIENT'S LUNGS SIZE ARE CLEAR AND BOWEL SOUNDS AUDIBLE IN ALL QUADRANTS. CLIENT SKIN IS WARM DRY AND RLE IS HEALING NICELY AND WITHOUT EDEMA. CLIENT INSTRUCTED TO CONTACT [facility] 01/05 WITH ANY ISSUES OR HEALTH CARE CONCERNS. CLIENT ACKNOWLEDGES UNDERSTANDING OF ALL.</paragraph> <paragraph>[Visit Date: 2024 by MARC TUCKER RN, ADMISSION NURSE]:</paragraph><paragraph>SNV 01/31/25 1. ABNORMAL FINDINGS/SIGNIFICANT CHANGES: ALL VITALS WITHIN SET PARAMETERS, SYSTEM WITHIN NORMAL LIMITS 2. CARE COORDINATION DETAILS: NONE NEEDED 3. SKILLED PROCEDURE PERFORMED THIS VISIT: WOUND CARE SKIN ASSESSMENT 4. NEXT PHYSICIAN/PROVIDER APPT: VASCULAR 5. PLAN/FOLLOW-UP NEEDED FOR NEXT VISIT: SKIN ASSESSMENT PHYSICAL ASSESSMENT WOUND CARE DIABETES EDUCATION HYPERTENSION EDUCATION ADDRESS ABOVE APPROPRIATE IN NARRATIVE BELOW: PATIENT ALERT ORIENTATED X3 IN [employer] DENIES ANY PAIN FEVERS CHILLS NAUSEA VOMITING DIARRHEA PATIENT REPORTS DOING HER DRESSING CHANGE DAILY WHEN SN IS NOT IN THE HOME PATIENT STATES SHE IS VERY HAPPY WITH THE OUTCOME OF THE HEALING PROCESS PATIENT EDUCATED ON GOOD PROTEIN INTAKE FOR WOUND HEALING WELL MANAGING DIABETES WATCHING OUT FOR ANY INFECTION PATIENT VERBALIZED UNDERSTANDING. PATIENT EDUCATED ON CALLING [facility] FOR ANY CONCERNS OR CHANGE IN CONDITION WELL NEXT SN VISIT PATIENT VERBALIZED UNDERSTANDING AND AGREES WITH PLAN</paragraph> Encounters Start Date/Time End Date/Time Encounter Type Admission Type Attending [facility] Care Facility Care Department Encounter ID Discharge Date Discharge Status Discharge Condition Discharge Reason Percent Goals Met 2024-08-04 00:00:00 2025-03-31 00:00:00 Outpatient RECERTIFIC [facility] [id number] 15.79
--- OUTSIDE RECORDS SUMMARY | 2025-02-04 12:29 | XMS_ITS | Clinical Summary ---
Author Organization Unknown Care Team Providers Care Sound Truck Operator Name Role Phone NOELLE RUSSELL MD, REBECA Unavailable Unavailable CAITLIN RN, ADMISSION NURSE, MARC Unavail able Unavailable YI ALEXIS, CLINICAL OUTSIDE LABORER, ELISHA Rosario available Unavailable CALIN SWING MANAGER, OLAMIDE Unavailable Unavailab richard BOWLING LPN, ANGÉLICA Unavailable Unacortney AVINA PT, DUANE Unavailable Unavailable TIMOTHY RN, CECI Unavailable Unavailable Payers Payer Name Policy Type Policy Number Effective Date Expira tion Date MEDICARE - [facility]/ID - [place] [id number] Problems Condition Name Condition Details Condition Category [...] W/O RESID 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-09 00:00: 00 PLASTIC SHAPER (CURRENT) USE OF ASPIRIN Active 10-09 00:00: 00 PLASTIC SHAPER (CURRENT) USE OF 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 ICS/ANTIPLAT ELETS Active [...] 2023-10 00:00: 00 08-01 23:59 :00 No [id number] Per instruc tions TWICE A DAY FOR 7 DAYS Per instructio ns TWICE A DAY FOR 7 DAYS (route: oral) Med Classific ation: Anti-Infe ctive Agents ibuprofen 800 mg tablet 2023-10 00:00: 00 08-01 23:59 :00 No [id number] Per instruc tions EVERY 8 HOURS NEEDED Per instructio ns EVERY 8 HOURS NEEDED (route: oral) Med Classific ation: Analgesic , Anti-infl ammatory or Antipyret ic levofloxaci n 750 mg tablet 2023-10 00:00: 00 08-01 23:59 :00 No [id number] Per instruc tions EVERY DAY FOR 7 DAYS Per instructio ns EVERY DAY FOR 7 DAYS (route: oral) Med Classific ation: Anti-Infe ctive Agents methocarbam ol 500 mg tablet 2023-10 00:00: 00 08-01 23:59 :00 No [id number] Per instruc tions THREE TIMES A DAY NEEDED Per instructio ns THREE TIMES A DAY NEEDED (route: oral) Med Classific ation: Locomotor System clonidine HCl 0.2 mg tablet 2023-10 00:00: 08-01 23:59 :00 No [id number] Per instruc tions 3 TIMES A DAY Per instructio ns 3 TIMES A DAY (route: oral) Med Classific ation: Cardiovas cular Therapy Agents potassium chloride ER 20 mEq tablet,exte nded release 2023-10 00:00: 00 08-01 23:59 :00 No [id number] Per instruc tions EVERY DAY Per instructio ns EVERY DAY (route: oral) Med Classific ation: Electroly te Balance-N utritiona l Products Santyl 250 unit/gram topical ointment 07-04 00:00: 00 07-17 00:00 :00 No [id number] Per instruc tions Per instructio ns (route: topical) Med Classific ation: Dermatolo gical clonidine HCl 0.1 mg tablet 06-21 00:00: 00 07-17 00:00 :00 No [id number] Per instruc tions TWICE A DAY FOR 90 DAYS Per instructio ns TWICE A DAY FOR 90 DAYS (route: oral) Med Classific ation: Cardiovas cular Therapy Agents albuterol sulfate HFA 90 mcg/actuati on aerosol inhaler 2023-10 00:00: 00 08-01 23:59 :00 No [id number] 2 puff EVERY 6 HOURS 2 puff EVERY 6 HOURS (route: inhalation ) Med Classific ation: Respirato ry Therapy Agents Aspirin Childrens 81 mg chewable tablet 2023-10 00:00: 00 08-01 23:59 :00 No [id number] 1 tablet DAILY 1 tablet DAILY (route: oral) Med Classific ation: Hematolog ical Agents metformin 500 mg tablet 2023-10 00:00: 00 08-01 23:59 :00 No [id number] 1 tablet 2 TIMES DAILY 1 tablet 2 TIMES DAILY (route: oral) Med Classific ation: Endocrine tramadol 50 mg tablet 2023-10 00:00: 00 08-01 23:59 :00 No [id number] 1 tablet 2 TIMES DAILY 1 tablet 2 TIMES DAILY (route: oral) Med Classific ation: Analgesic , Anti-infl ammatory or Antipyret ic Vitamin D3 25 mcg (1,000 unit) capsule 2023-10 00:00: 00 08-01 23:59 :00 No [id number] 1 capsule DAILY 1 capsule DAILY (route: oral) Med Classific ation: Electroly te Balance-N utritiona l Products aspirin 81 mg tablet,claire yed release 2023-10 00:00: 00 01-13 00:00 :00 No [id number] 1 tablet DAILY 1 tablet DAILY (route: oral) Med Classific ation: Hematolog ical Agents betamethaso ne dipropionat e 0.05 % topical ointment 2023-10 00:00: 00 11-27 23:59 :00 No [id number] Per instruc tions DAILY Per instructio ns DAILY (route: topical) Med Classific ation: Dermatolo gical carvedilol 6.25 mg tablet 2023-10 00:00: 00 01-15 23:59 :00 No [id number] 1 tablet 2 TIMES DAILY 1 tablet 2 TIMES DAILY (route: oral) Med Classific ation: Cardiovas cular Therapy Agents clonidine HCl 0.2 mg tablet 2023-10 00:00: 00 Yes [id number] 1 tablet 3 TIMES DAILY 1 tablet 3 TIMES DAILY (route: oral) Med Classific ation: Cardiovas cular Therapy Agents losartan 50 mg tablet 2023-10 00:00: 00 Yes [id number] 1 tablet DAILY 1 tablet DAILY (route: oral) Med Classific ation: Cardiovas cular Therapy Agents naloxone 4 mg/actuatio n nasal spray 2023-10 00:00: 00 01-15 23:59 :00 No [id number] 1 spray DIRECTED 1 spray DIRECTED (route: nasal) Med Classific ation: Antidotes and other Reversal Agents tramadol 50 mg tablet 2023-10 00:00: 00 10-14 23:59 :00 No [id number] 1 tablet EVERY 6 HOURS 1 tablet EVERY 6 HOURS (route: oral) Med Classific ation: Analgesic , Anti-infl ammatory or Antipyret ic methocarbam ol 500 mg tablet 2023-10 00:00: 00 10-14 23:59 :00 No [id number] 1 tablet 3 TIMES DAILY 1 tablet 3 TIMES DAILY (route: oral) Med Classific ation: Locomotor System gabapentin 100 mg capsule 2023-10 00:00: 00 01-15 23:59 :00 No [id number] 1 capsule BEDTIME 1 capsule BEDTIME (route: oral) Med Classific ation: Central Nervous System Agents gentamicin 0.1 % topical ointment 2023-10 00:00: 00 10-14 23:59 :00 No [id number] Per instruc tions DAILY Per instructio ns DAILY (route: topical) Med Classific ation: Dermatolo gical cephalexin 500 mg capsule 2023-10 00:00: 00 10-14 23:59 :00 No [id number] 500 mg 4 TIMES DAILY 500 mg 4 TIMES DAILY (route: oral) Med Classific ation: Anti-Infe ctive Agents aspirin 81 mg tablet,claire yed release 2023-10 00:00: 00 Yes [id number] 1 tablet DAILY 1 tablet DAILY (route: oral) Med Classific ation: Hematolog ical Agents atorvastati n 80 mg tablet 2023-10 00:00: 00 Yes [id number] 1 tablet BEDTIME 1 tablet BEDTIME (route: oral) Med Classific ation: Cardiovas cular Therapy Agents betamethaso ne dipropionat e 0.05 % topical ointment 2023-10 00:00: 00 11-27 23:59 :00 No [id number] Per instruc tions DAILY Per instructio ns DAILY (route: topical) Med Classific ation: Dermatolo gical carvedilol 6.25 mg tablet 2023-10 00:00: 00 01-13 00:00 :00 No [id number] 1 tablet 2 TIMES DAILY 1 tablet 2 TIMES DAILY (route: oral) Med Classific ation: Cardiovas cular Therapy Agents clonidine HCl 0.2 mg tablet 2023-10 00:00: 00 01-13 00:00 :00 No [id number] 1 tablet 3 TIMES DAILY 1 tablet 3 TIMES DAILY (route: oral) Med Classific ation: Cardiovas cular Therapy Agents clopidogrel 75 mg tablet 2023-10 00:00: 00 Yes [id number] 1 tablet DAILY 1 tablet DAILY (route: oral) Med Classific ation: Hematolog ical Agents gabapentin 300 mg capsule 2023-10- 00:00: 00 01-15 23:59 :00 No [id number] 1 capsule 2 TIMES DAILY 1 capsule 2 TIMES DAILY (route: oral) Med Classific ation: Central Nervous System Agents losartan 50 mg tablet 2023-10 00:00: 00 11-27 23:59 :00 No [id number] 0.5 tablet 2 TIMES DAILY 0.5 tablet 2 TIMES DAILY (route: oral) Med Classific ation: Cardiovas cular Therapy Agents methocarbam ol 500 mg tablet 2023-10 00:00: 00 10-14 23:59 :00 No [id number] 1 tablet 3 TIMES DAILY 1 tablet 3 TIMES DAILY (route: oral) Med Classific ation: Locomotor System morphine 15 mg immediate release tablet 2023-10 00:00: 00 10-14 23:59 :00 No [id number] 1 tablet EVERY 12 HOURS 1 tablet EVERY 12 HOURS (route: oral) Med Classific ation: Analgesic , Anti-infl ammatory or Antipyret ic naloxone 4 mg/actuatio n nasal spray 2023-10 00:00: 00 01-13 00:00 :00 No [id number] 1 spray O2 - PRN 1 spray O2 - PRN (route: nasal) Med Classific ation: Antidotes and other Reversal Agents oxycodone 5 mg tablet 2023-10 00:00: 00 10-14 23:59 :00 No [id number] 1 tablet EVERY 6 HOURS 1 tablet EVERY 6 HOURS (route: oral) Med Classific ation: Analgesic , Anti-infl ammatory or Antipyret ic betamethaso ne dipropionat e 0.05 % topical ointment 07 00:00: 00 Yes [id number] Per instruc tions DAILY Per instructio ns [...] MAINTAIN SITUATIONAL AWARENESS AND WILL NOTIFY CLINICAL EXPERIMENTAL TECHNICIAN AND PHYSICIAN/PROVIDER WITH ANY CHANGE IN CONDITION. [code = SKILLED NURSE TO PERFORM ENVIRONMENTAL SAFETY RISK ASSESSMENT AND FALL RISK ASSESSMENT AND PROVIDE INSTRUCTION TO IMPLEMENT ENVIRONMENTAL SAFETY AND FALL PREVENTION STRATEGIES THROUGHOUT THE CERTIFICATION PERIOD. SKILLED NURSE WILL MAINTAIN SITUATIONAL AWARENESS AND WILL NOTIFY CLINICAL EXPERIMENTAL TECHNICIAN AND PHYSICIAN/PROVIDER WITH ANY CHANGE IN CONDITION.] [...] AND WITHOUT EDEMA. CLIENT INSTRUCTED TO CONTACT [facility] 01/05 WITH ANY ISSUES OR HEALTH [...] End Date/Time Encounter Type Admission Type Attending [facility] Care Department Encounter ID Discharge Date Discharge Status Discharge Condition Discharge Reason Percent Goals Met 2024-08-04 00:00:00 2025-03-31 00:00:00 Outpatient RECERTIFIC [facility] [id number] 15.79
--- OUTSIDE RECORDS SUMMARY | 2025-02-04 12:29 | XMS_ITS | Encounter Summary ---
Author Organization [facility] Address [address] [place] [address] Care Team Providers Care Product Specialist Name Role Phone Lillian Velasco MD Primary Care Provider [phone] Reason for Visit * Consultation (Routine) - Closed Specialty Diagnoses / Procedures Referred By Keiry joseph Referred To Contact Podiatry / Orthopaedic Surgery Diagnoses Type 2 diabetes mellitus without complications (CMS/[facility] V24, CMS/[facility] V28) Lillian Velasco MD [address] [place] [address] Physician Associ D/B/A: [facility] [place], [place] Phone: tel: fax: Bijan Dean DPM [address] [address] Phone: tel: fax: Referral ID Status Reason Start Date Expiration Date V isits Requested Visits Authorized [id number] Closed Specialty Services Required 11/26/2024 11/26/2025 1 1 Encounter Details Date Type Department Care Team (Late st Contact Info) Description 01/30/2025 2:30 PM EDT Consult Orthopedic Surgery - [place] [address] [address] Bijan Dean DPM [address] [address] Dermatophytosis of nail (Primary Dx); Type 2 diabetes mellitus without complications (CMS/HCC V24, CMS/[facility] V28); Pain in toe of right foot; Pain in toe of left foot; Diabetic mononeuropathy simplex (CMS/HCC V24, CMS/[facility] V28); Type II diabetes mellitus with peripheral circulatory disorder ([facility] V24, [facility] V28) Social History Tobacco Use Types Packs/Day Years Used Date Smoking Tobacco: Never Assessed Comments Unknown Sex and Gender Information Value Date Recorded Sex Assigned at Not on file Legal Sex Female 10:36 AM EST Gender Identity Female 01/30/2025 2:11 PM EDT Sexual Orientation Not on file documented as of this encounter Last Filed Vital Signs Vital Sign Reading Time Taken Comments Blood Pressure - - Pulse - - Temperature - - Respiratory Rate - - Oxygen Saturation - - Inhaled Oxygen Concentration - - Weight 113 kg (250 lb) 01/30/2025 3:21 PM EDT Height 170.2 cm (5' 7 ) 01/30/2025 3:21 PM EDT Body Mass Index 39.16 01/30/2025 3:21 PM EDT documented in this encounter Progress Notes * Bijan Dean DPM - 01/30/2025 2:30 PM EDT Last PCP visit:Referring MD: Lillian Velasco MD 11/26/2024 IDENTIFIER: Diego is a 69 y.o. year old female who presents for consultation. CC: Foot pain HPI: Presents with a complex past medical history notes that she has had several strokes type II diabetic reports that she has ulcers in both posterior aspects of legs states the left is healed the right is still being treated with vascular wound care she been pretty happy with the treatment notes that she has a long painful deformed nails has difficulty taking care of them herself unable to walk doesnote that she has full cognitive function and ambulation after her stroke is worse with physical therapy without complaint ROS: GENERAL: Pt denies nausea, fever, vomiting, chills, or shortness of breath. Pt in NAD. CARDIOLOGY: pt denies chest pain, palpitations LUNGS: pt denies shortness of breath MUSCULOSKELETAL: See HPI, otherwise no joint pain or swelling, back pain, or muscle pain. SKIN: see HPI, otherwise no lesions, rash or itching NEURO: No persistent headache, weakness or numbness The remainder of the review of systems is noncontributory PAST MEDICAL HISTORY: There is no problem list on file for this patient. Type 2 diabetes history of strokes SOCIAL HISTORY: Social History Tobacco Use Smoking status: Not on file Smokeless tobacco: Not on file Substance Use Topics Alcohol use: Not on file ACTIVE MEDICATIONS: No outpatient medications have been marked as taking for the 01/30/25 encounter (Consult) with Bijan Dean DPM. ALLERGIES: Not on File PHYSICAL EXAM: Visit Vitals Ht 1.702 m (67 ) Wt 113 kg (250 lb) BMI 39.16 kg/m?? BSA 2.22 m?? PODIATRIC EXAMINATION: GENERAL: Patient appears well nourished, with NAD. VASCULAR: Dorsalis pedis pulses are 0-4 left 1 out of 4 right and Posterior tibial pulses are 0/4 bilaterally. Capillary filling time within normal limits the digits. No pallor on elevation or rubor on dependency. No varicosities. Denies rest pain or claudication pain. NEUROLOGICAL: Sharp/dull sensation diminished, protective sensation diminished 8/10 with Ipswitch touch test bilaterally, vibratory sensation intact to the tibial tuberosity. ORTHOPEDIC: Weakness bilateral without acute deficits from stroke DERMATOLOGICAL:. Toenails: Left Toenail(s) 1-5: subungual debris, discoloration, hypertrophic, elongation, mycotic appearance, onychomycosis, pain and thickening. Right Toenail(s) 1-5: subungual debris, discoloration, hypertrophic, elongation, mycotic appearance, onychomycosis, pain and thickening. Annular scaling bilateral feet moccasin distribution Skin thinning texture shiny appearance diffuse hyperpigmentation bilaterally pedal hair decreased Posterior bandaging of right leg left intact wound formation posterior leg per patient's request managed by vascular and wound care BIOMECHANICS: Ankle ROM WNL, STJ ROM wnl, MTJ ROM wnl, 1st MPJ ROM wnl. IMAGING: IMPRESSION: 1. Dermatophytosis of nail 2. Type 2 diabetes mellitus without complications (CMS/HCC V24, CMS/HCC V28) 3. Pain in toe of right foot 4. Pain in toe of left foot 5. Diabetic mononeuropathy simplex (CMS/HCC V24, CMS/HCC V28) 6. Type II diabetes mellitus with peripheral circulatory disorder (CMS/HCC V24, CMS/HCC V28) PLAN: Pt was seen and examined, history reviewed. Discussed with patient regarding proper glucose control, exercise, and diet. Explained to patient proper shoe gear, and importance of daily foot checks. I reviewed neuropathy and why it occurs in diabetics. I educated the patient on proper blood sugar control and the importance of an HgBA1c of less than 7.0%. I reviewed the signs and symptoms of neuropathy with the patient Pt to return for another evaluation in 3 months. Debridement of mycotic toenails 6-10: Verbal informed consent was obtained from the patient. Greater than 6 nails were aseptically debrided in thickness and length with nail nippers Bijan Dean DPM documented in this encounter Plan of Treatment Upcoming Encounters Date Type Department Care Team (Late st Contact Info) Description 04/15/2025 10:00 AM EDT Office Visit Orthopedic Surgery - [place] [address] [address] Bijan Dean DPM [address] [address] documented as of this encounter Visit Diagnoses Diagnosis Dermatophytosis of nail- Primary Type 2 diabetes mellitus without complications (CMS/HCC V24, CMS/HCC V28) Pain in toe of right foot Pain in soft tissues of limb Pain in toe of left foot Pain in soft tissues of limb Diabetic mononeuropathy simplex (CMS/HCC V24, CMS/HCC V28) Type II or unspecified type diabetes mellitus with neurological manifestations, not stated as uncontrolled Type II diabetes mellitus with peripheral circulatory disorder (CMS/HCC V24, CMS/HCC V28) Type II or unspecified type diabetes mellitus with peripheral circulatory disorders, not stated as uncontrolled documented in this encounter Orders Outpatient Referral Count Last Ordered Date st Ordered Date AMB REFERRAL TO PODIATRY 1 01/30/2025 documented in this encounter Care Teams Product Specialist Relationship Specialty Start Date End Date Lillian Velasco MD [address] [place] [address] , [address] Physician Associ D/B/A: [facility] [place] PCP - General Internal Medicine 11/26/24 documented as of this encounter
== END 2025-02-04 11:24 | disposition home or self-care (01) ==
LOC: HO.HKA 10:47
PROVIDERS: PCP Internal Medicine; Visit Provider Internal Medicine Hypertension Specialist
DX: I10 Essential (primary) hypertension (principal); E87.6 Hypokalemia
CPT/HCPCS: 99204

== ENCOUNTER → 2025-02-04 10:46 | Outpatient (BNVA) | payer MEDICARE, SELFPAY | PROVIDERS: PCP Internal Medicine; Visit Provider Internal Medicine Hypertension Specialist ==

== ENCOUNTER 2025-02-04 11:40 | Outpatient (REF) | payer MEDICARE, SELFPAY ==
[2025-02-04 12:10] LABS: MANUAL DIFF FLAG NO
[2025-02-04 12:41] LABS: Basophils Percent Auto 0.4 % (0-2); Eosinophils Absolute Auto 0.4 X10*3/uL (0.0-0.4); Eosinophils Percent Auto 6.5 % (0-4); Hematocrit 35.6 % (37.0-47.0); Hemoglobin 11.6 g/dl (12.0-16.0); Imm Gran Abs Auto 0.01 X10*3/uL (0.00-0.03); Imm Gran Pct Auto 0.1 % (0.0-0.4); Lymphocytes Absolute Auto 2.4 X10*3/uL (1.2-4.9); Lymphocytes Percent Auto 35.2 % (20-40); Mean Corpuscular HGB Conc 32.6 g/dl (31.0-35.0); Mean Corpuscular Hemoglobin 29.4 pg (27.0-33.0); Mean Corpuscular Volume 90.4 fL (80.0-98.0); Mean Platelet Volume 9.9 fL (9.4-12.3); Monocytes Absolute Auto 0.4 X10*3/uL (0.1-1.2); Monocytes Percent Auto 6.3 % (2-11); Neutrophils Absolute Auto 3.5 x10*3/uL (2.0-8.3); Neutrophils Percent Auto 51.5 % (45-73); Platelet Count 199 X10*3/uL (160-400); Red Blood Count 3.94 X10*6/uL (4.20-5.50); Red Cell Distribution Width 12.5 % (11.0-16.0); White Blood Count 6.8 X10*3/uL (4.8-10.8)
[2025-02-04 13:19] LABS: Alanine Aminotransferase 21 U/L (0-31); Albumin Level 3.8 g/dL (3.5-5.0); Alkaline Phosphatase 72 U/L (39-117); Anion Gap 10 (12-20); Aspartate Amino Transferase 23 U/L (5-31); Bilirubin Total 0.4 mg/dL (0.0-1.0); Blood Urea Nitrogen 19 mg/dL (9-16); Calcium 9.1 mg/dL (8.4-10.2); Carbon Dioxide 29 mmol/L (22-29); Chloride 106 mmol/L (96-108); Estimated Glomerular Filt Rate > 60; Glucose Random 127 mg/dL (60-115); Potassium 4.1 mmol/L (3.3-5.1); Sodium 141 mmol/L (135-145); Total Protein 6.9 g/dL (6.5-8.0)
--- OUTSIDE RECORDS SUMMARY | 2025-02-04 13:53 | XMS_ITS | Encounter Summary ---
Author Organization [facility] Address [address] [place] [address] Care Team Providers Care Chamber Worker Name Role Phone Lillian Velasco MD Primary Care Provider [phone] Reason for Visit * Consultation (Routine) - Closed Specialty Diagnoses / Procedures Referred By Keiry joseph Referred To Contact Podiatry / Orthopaedic Surgery Diagnoses Type 2 diabetes mellitus without complications (CMS/[facility] V24, CMS/[facility] V28) Lillian Velasco MD [address] [place] [address] Physician Associ D/B/A: [facility] [place], [place] Phone: tel: fax: Bijan Dean DPM [address] [address] Phone: tel: fax: Referral ID Status Reason Start Date Expiration Date V isits Requested Visits Authorized [id number] Closed Specialty Services Required 11/26/2024 11/26/2025 1 1 Encounter Details Date Type Department Care Team (Late st Contact Info) Description 01/30/2025 2:30 PM EDT Consult Orthopedic Surgery - [place] [address] [address] Bijan Dean DPM [address] [address] Dermatophytosis of nail (Primary Dx); Type 2 diabetes mellitus without complications (CMS/HCC V24, [facility] V28); Pain in toe of right foot; Pain in toe of left foot; Diabetic mononeuropathy simplex (CMS/HCC V24, [facility] V28); Type II diabetes mellitus with peripheral circulatory disorder ([facility] V24, [facility] V28) Social History Tobacco Use Types [...] AM EDT Office Visit Orthopedic Surgery - [place] [address] [address] Bijan Dean DPM [address] [address] documented as of this encounter Visit Diagnoses [...] 01/30/2025 documented in this encounter Care Teams Chamber Worker Relationship Specialty Start Date End Date Lillian Velasco MD [address] [place] [address] , [address] Physician Associ D/B/A: [facility] [place] PCP - General Internal Medicine 11/26/24 documented as of this encounter
--- OUTSIDE RECORDS SUMMARY | 2025-02-04 13:53 | XMS_ITS | Clinical Summary ---
Author Organization [address] [place] [address] [place] [phone] Phone Care Team Providers Care Electrical Design Technologist Name Role Phone Lillian Velasco MD Primary Care Provider [phone] Encounters Date Type Department Care Team Description 01/30/2025 2:30 PM EDT Consult Orthopedic [address] [address] Bijna Dean, JANET Dermatophytosis of nail (Primary Dx); [...] Upcoming Encounters Date Type Department Care Team ([facility] st Contact Info) Description 04/15/2025 10:00 AM EDT Office Visit Orthopedic Surgery [place] [address] [phone] Bijan Dean, DPM [address] [address] Health Maintenance Due Date Last Done Comments [...] Insurance MEDICARE [place] Care Teams Electrical Design Technologist Relationship Specialty Start Date End Date Lillian Velasco MD [address] [place] [address] , [address] [facility] Physician Associ D/B/A: [facility] [place] PCP - General Internal Medicine 11/26/24
[2025-02-10 13:33] LABS: Aldosterone/Renin Ratio 46.9 Ratio (0.9-28.9); Plasma Renin Activity 0.32 ng/mL/h (0.25-5.82)
== END 2025-02-04 11:41 | disposition home or self-care (01) ==
LOC: HO.LAB 11:40
PROVIDERS: Visit Provider Internal Medicine Hypertension Specialist
DX: E87.6 Hypokalemia (principal); I10 Essential (primary) hypertension
CPT/HCPCS: 36415; 80053; 82088; 82384; 84244; 85025; 99202

== ENCOUNTER 2025-02-06 15:23 | Outpatient (AMB) | payer MEDICARE, SELFPAY ==
--- NOTE | 2025-02-06 15:39 | MHC.OFFVIS ---
Intake Visit Reasons: 2 week follow up wound check Intake Note: Patient presents for follow up wound check. Patient states she is doing much better. Accompanied by: Daughter Allergies amlodipine Allergy (Intermediate, Verified 02/06/25 15:41) drowsiness, swelling of feet and ankles lisinopril Allergy (Intermediate, Verified 02/06/25 15:41) cough hydralazine Allergy (Verified 02/06/25 15:41) Swelling metformin Adverse Reaction (Verified 02/06/25 15:41) Diarrhea Lisinopril-Hydrochlorothiazide Adverse Reaction (Intermediate, Uncoded 02/04/25 11:02) Leg swelling Metoprolol Tartrate Adverse Reaction (Intermediate, Uncoded 02/04/25 11:02) Leg swelling HPI HPI 2 week follow up wound check: Details: Miladys is presenting today for a 2w follow up for wound check. She continues with daily dressing changes. She states that she is very happy with how things have progressed. She has no new concerns today. [facility] Medical History Hypertension Wound of lower extremity Venous stasis ulcer Chronic ulcer of left ankle Diabetes Hypertension Abnormal Pap smear of cervix Diabetes mellitus Hypertension Renal calculi Diastasis recti Dyslipidemia associated with type 2 diabetes mellitus Abdominal mass Microalbuminuria Renal calculi Morbid obesity Surgical History Hx of prior ablation treatment Family History Father Seizures Mother Seizures Congenital heart disease in adult Hypotension Maternal Grandfather Leukemia Social History Household Members: Family Housing: House Do you presently have visiting nurse or other home services: No Alcohol intake: current Alcohol intake frequency: holidays/special occasions only Alcohol type: wine Patient Tobacco Use Status: Former Tobacco user Tobacco use type: Cigarette e-Cigarette/Vaping Use: Never Used Second Hand Smoke Exposure: No Substance Use Type: Marijuana service: No Current occupational status: employed Current occupational exposures/hazards: No Cognitive needs: No Hearing needs: No Vision needs: No Review of Systems Const Reports as per HPI and Denies weakness ENT Reports Normal hearing present and Denies dizziness Card Reports as per HPI, Denies chest pain, Denies chest pain at rest, Denies chest pain with activity, Denies dyspnea and Denies dyspnea on exertion Resp Reports as per HPI, Denies cough, Denies dyspnea and Denies dyspnea on exertion GI Reports as per HPI, Denies abdominal pain, Denies nausea and Denies vomiting Musc Denies numbness Skin/Breast Reports as per HPI, Denies erythema and Denies wounds Neuro Reports Normal hearing present, Denies dizziness, Denies numbness, Denies Sensory deficit (Neuro) and Denies weakness Psych Reports no additional complaints Endo Reports no additional complaints Physical Exam Const General: healthy appearing and no acute distress Orientation/consciousness: patient oriented x3 HEENT Head: Yes normal to inspection Ears: hearing grossly normal bilaterally Mouth: Normal oral and palatal mucosa present Resp Effort & Inspection: normal respiratory effort and able to speak in complete sentences Auscultation: clear to auscultation bilaterally Cardio Jugular venous distension: no JVD Rate: regular rate Rhythm: regular rhythm Heart sounds: S1 normal heart sound present and S2 normal heart sound present Bruits: no abdominal aortic bruits, no carotid bruits, no femoral bruits and no renal bruits Peripheral pulses: Peripheral pulses 2+ throughout GI Inspection: Yes normal to inspection Palpation (GI): No Abdominal aortic bruit present Skin General skin exam: no rashes or lesions noted Wounds: no wounds Hair: normal Neuro General: patient oriented x3 Cranial nerves: Yes Normal hearing present Cognition (Neuro): normal cognition Gait exam (Neuro): Normal gait present Motor exam (neuro): 5/5 motor strength present throughout Sensory Exam: No Sensory deficit (Neuro) Extrem Other: Right lower extremity: wound scabbed over; healing very well. No drainage noted. No open areas. General: Yes normal to inspection, Yes full ROM, Yes capillary refill normal and Yes normal gait Assessment & Plan Assessment & Plan (1) PAD (peripheral artery disease): Code(s): I73.9 - Peripheral vascular disease, unspecified Category: Medical Plan: Miladys is presenting today with her daughter for a 2w follow up to wound check. She has been continuing with daily dressing changes. Her wound has scabbed over and is healing very well. There is no more drainage. We will no longer need to see the pt for any more wound care checks. She has done very welll! We did discuss to keep the area clean and dry and to keep the new surrounding tissue moisturized. We discussed if she had any other vascular issues, to reach back out to us. Thank you for allowing us to participate in the patient's care. If there are any questions or concerns, please do not hesitate to reach out to us. Coding Level of Care Code Est Pt Level 3 (73260) Diagnoses PAD (peripheral artery disease) I73.9
--- OUTSIDE RECORDS SUMMARY | 2025-02-06 17:09 | XMS_ITS | Clinical Summary ---
Author Organization Unknown Care Team Providers Care Financial Advisor Trainee Name Role Phone NOELLE RUSSELL MD, REBECA Unavailable Unavailable CAITLIN RN, ADMISSION NURSE, MARC Unavail able Unavailable YI ALEXIS, CLINICAL SPRAY UNIT FEEDER, ELISHA Rosario available Unavailable CALIN HISTOLOGY TEACHER, OLAMIDE Unavailable Unavailab richard BOWLING LPN, ANGÉLICA Unavailable Unacortney AVINA PT, DUANE Unavailable Unavailable TIMOTHY RN, CECI Unavailable Unavailable Payers Payer Name Policy Type Policy Number Effective Date Expira tion Date MEDICARE - [facility] [id number] Problems Condition Name Condition Details Condition Category [...] W/O RESID 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-09 00:00: 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 10-09 00:00: 00 HALF-WAY (CURRENT) USE OF 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 ICS/ANTIPLAT ELETS Active [...] 2023-10 00:00: 00 08-01 23:59 :00 No [id number] Per instruc tions TWICE A DAY FOR 7 DAYS Per instructio ns TWICE A DAY FOR 7 DAYS (route: oral) Med Classific ation: Anti-Infe ctive Agents ibuprofen 800 mg tablet 2023-10 00:00: 00 08-01 23:59 :00 No [id number] Per instruc tions EVERY 8 HOURS NEEDED Per instructio ns EVERY 8 HOURS NEEDED (route: oral) Med Classific ation: Analgesic , Anti-infl ammatory or Antipyret ic levofloxaci n 750 mg tablet 2023-10 00:00: 00 08-01 23:59 :00 No [id number] Per instruc tions EVERY DAY FOR 7 DAYS Per instructio ns EVERY DAY FOR 7 DAYS (route: oral) Med Classific ation: Anti-Infe ctive Agents methocarbam ol 500 mg tablet 2023-10 00:00: 00 08-01 23:59 :00 No [id number] Per instruc tions THREE TIMES A DAY NEEDED Per instructio ns THREE TIMES A DAY NEEDED (route: oral) Med Classific ation: Locomotor System clonidine HCl 0.2 mg tablet 2023-10 00:00: 08-01 23:59 :00 No [id number] Per instruc tions 3 TIMES A DAY Per instructio ns 3 TIMES A DAY (route: oral) Med Classific ation: Cardiovas cular Therapy Agents potassium chloride ER 20 mEq tablet,exte nded release 2023-10 00:00: 00 08-01 23:59 :00 No [id number] Per instruc tions EVERY DAY Per instructio ns EVERY DAY (route: oral) Med Classific ation: Electroly te Balance-N utritiona l Products Santyl 250 unit/gram topical ointment 07-04 00:00: 00 07-17 00:00 :00 No [id number] Per instruc tions Per instructio ns (route: topical) Med Classific ation: Dermatolo gical clonidine HCl 0.1 mg tablet 06-21 00:00: 00 07-17 00:00 :00 No [id number] Per instruc tions TWICE A DAY FOR 90 DAYS Per instructio ns TWICE A DAY FOR 90 DAYS (route: oral) Med Classific ation: Cardiovas cular Therapy Agents albuterol sulfate HFA 90 mcg/actuati on aerosol inhaler 2023-10 00:00: 00 08-01 23:59 :00 No [id number] 2 puff EVERY 6 HOURS 2 puff EVERY 6 HOURS (route: inhalation ) Med Classific ation: Respirato ry Therapy Agents Aspirin Childrens 81 mg chewable tablet 2023-10 00:00: 00 08-01 23:59 :00 No [id number] 1 tablet DAILY 1 tablet DAILY (route: oral) Med Classific ation: Hematolog ical Agents metformin 500 mg tablet 2023-10 00:00: 00 08-01 23:59 :00 No [id number] 1 tablet 2 TIMES DAILY 1 tablet 2 TIMES DAILY (route: oral) Med Classific ation: Endocrine tramadol 50 mg tablet 2023-10 00:00: 00 08-01 23:59 :00 No [id number] 1 tablet 2 TIMES DAILY 1 tablet 2 TIMES DAILY (route: oral) Med Classific ation: Analgesic , Anti-infl ammatory or Antipyret ic Vitamin D3 25 mcg (1,000 unit) capsule 2023-10 00:00: 00 08-01 23:59 :00 No [id number] 1 capsule DAILY 1 capsule DAILY (route: oral) Med Classific ation: Electroly te Balance-N utritiona l Products aspirin 81 mg tablet,claire yed release 2023-10 00:00: 00 01-13 00:00 :00 No [id number] 1 tablet DAILY 1 tablet DAILY (route: oral) Med Classific ation: Hematolog ical Agents betamethaso ne dipropionat e 0.05 % topical ointment 2023-10 00:00: 00 11-27 23:59 :00 No [id number] Per instruc tions DAILY Per instructio ns DAILY (route: topical) Med Classific ation: Dermatolo gical carvedilol 6.25 mg tablet 2023-10 00:00: 00 01-15 23:59 :00 No [id number] 1 tablet 2 TIMES DAILY 1 tablet 2 TIMES DAILY (route: oral) Med Classific ation: Cardiovas cular Therapy Agents clonidine HCl 0.2 mg tablet 2023-10 00:00: 00 Yes [id number] 1 tablet 3 TIMES DAILY 1 tablet 3 TIMES DAILY (route: oral) Med Classific ation: Cardiovas cular Therapy Agents losartan 50 mg tablet 2023-10 00:00: 00 01-23 23:59 :00 No [id number] 1 tablet DAILY 1 tablet DAILY (route: oral) Med Classific ation: Cardiovas cular Therapy Agents naloxone 4 mg/actuatio n nasal spray 2023-10 00:00: 00 01-15 23:59 :00 No [id number] 1 spray DIRECTED 1 spray DIRECTED (route: nasal) Med Classific ation: Antidotes and other Reversal Agents tramadol 50 mg tablet 2023-10 00:00: 00 10-14 23:59 :00 No [id number] 1 tablet EVERY 6 HOURS 1 tablet EVERY 6 HOURS (route: oral) Med Classific ation: Analgesic , Anti-infl ammatory or Antipyret ic methocarbam ol 500 mg tablet 2023-10 00:00: 00 10-14 23:59 :00 No [id number] 1 tablet 3 TIMES DAILY 1 tablet 3 TIMES DAILY (route: oral) Med Classific ation: Locomotor System gabapentin 100 mg capsule 2023-10 00:00: 00 01-15 23:59 :00 No [id number] 1 capsule BEDTIME 1 capsule BEDTIME (route: oral) Med Classific ation: Central Nervous System Agents gentamicin 0.1 % topical ointment 2023-10 00:00: 00 10-14 23:59 :00 No [id number] Per instruc tions DAILY Per instructio ns DAILY (route: topical) Med Classific ation: Dermatolo gical cephalexin 500 mg capsule 2023-10 00:00: 00 10-14 23:59 :00 No [id number] 500 mg 4 TIMES DAILY 500 mg 4 TIMES DAILY (route: oral) Med Classific ation: Anti-Infe ctive Agents aspirin 81 mg tablet,claire yed release 2023-10 00:00: 00 Yes [id number] 1 tablet DAILY 1 tablet DAILY (route: oral) Med Classific ation: Hematolog ical Agents atorvastati n 80 mg tablet 2023-10 00:00: 00 Yes [id number] 1 tablet BEDTIME 1 tablet BEDTIME (route: oral) Med Classific ation: Cardiovas cular Therapy Agents betamethaso ne dipropionat e 0.05 % topical ointment 2023-10 00:00: 00 11-27 23:59 :00 No [id number] Per instruc tions DAILY Per instructio ns DAILY (route: topical) Med Classific ation: Dermatolo gical carvedilol 6.25 mg tablet 2023-10 00:00: 00 01-13 00:00 :00 No [id number] 1 tablet 2 TIMES DAILY 1 tablet 2 TIMES DAILY (route: oral) Med Classific ation: Cardiovas cular Therapy Agents clonidine HCl 0.2 mg tablet 2023-10 00:00: 00 01-13 00:00 :00 No [id number] 1 tablet 3 TIMES DAILY 1 tablet 3 TIMES DAILY (route: oral) Med Classific ation: Cardiovas cular Therapy Agents clopidogrel 75 mg tablet 2023-10 00:00: 00 01-23 23:59 :00 No [id number] 1 tablet DAILY 1 tablet DAILY (route: oral) Med Classific ation: Hematolog ical Agents gabapentin 300 mg capsule 2023-10 00:00: 00 01-15 23:59 :00 No [id number] 1 capsule 2 TIMES DAILY 1 capsule 2 TIMES DAILY (route: oral) Med Classific ation: Central Nervous System Agents losartan 50 mg tablet 2023-10 00:00: 00 11-27 23:59 :00 No [id number] 0.5 tablet 2 TIMES DAILY 0.5 tablet 2 TIMES DAILY (route: oral) Med Classific ation: Cardiovas cular Therapy Agents methocarbam ol 500 mg tablet 2023-10 00:00: 00 10-14 23:59 :00 No [id number] 1 tablet 3 TIMES DAILY 1 tablet 3 TIMES DAILY (route: oral) Med Classific ation: Locomotor System morphine 15 mg immediate release tablet 2023-10 00:00: 00 10-14 23:59 :00 No [id number] 1 tablet EVERY 12 HOURS 1 tablet EVERY 12 HOURS (route: oral) Med Classific ation: Analgesic , Anti-infl ammatory or Antipyret ic naloxone 4 mg/actuatio n nasal spray 2023-10 00:00: 00 01-13 00:00 :00 No [id number] 1 spray O2 - PRN 1 spray O2 - PRN (route: nasal) Med Classific ation: Antidotes and other Reversal Agents oxycodone 5 mg tablet 2023-10 00:00: 00 10-14 23:59 :00 No [id number] 1 tablet EVERY 6 HOURS 1 tablet EVERY 6 HOURS (route: oral) Med Classific ation: Analgesic , Anti-infl ammatory or Antipyret ic betamethaso ne dipropionat e 0.05 % topical ointment 12-13 00:00: 00 Yes [id number] Per instruc tions DAILY Per instructio ns DAILY (route: topical) Med Classific ation: Dermatolo gical losartan 50 mg tablet 01-23 00:00: 00 Yes [id number] 0.5 tablet 2 TIMES DAILY 0.5 tablet 2 TIMES DAILY (route: oral) Med Classific ation: Cardiovas cular Therapy Agents Vitamin D3 25 mcg (1,000 unit) capsule 01-27 00:00: 00 Yes [id number] 1 capsule DAILY 1 capsule DAILY (route: oral) Med Classific ation: Electroly te Balance-N utritiona l Products Immunizations Ordered Immunization Name Filled Immunization Name Date Status Comments Refusal Reason TETANUS, TDAP (TETANUS) 2025-01-23 00:00:00 Vital Signs Vital Name Observation Time Observation Value Commen ts Temperature 2025-02-05 09:25:00.000 98.3 [degF] Temperature 2025-02-03 09:51:00.000 98 [degF] Temperature 2025-01-31 09:39:00.000 97.2 [degF] Pulse 2025-02-05 09:25:00.000 60 /min Pulse 2025-02-03 09:51:00.000 61 /min Pulse 2025-01-31 09:39:00.000 60 /min O2 Saturation (%) 2025-02-03 09:51:00.000 100 % O2 Saturation (%) 2025-01-31 09:39:00.000 98 % Respirations 2025-02-03 09:51:00.000 16 /min Respirations 2025-01-31 09:39:00.000 18 /min Systolic Blood Pressure 2025-02-05 09:25:00.000 162 mm [Hg] Systolic Blood Pressure 2025-02-03 09:51:00.000 165 mm [Hg] Systolic Blood Pressure 2025-01-31 09:39:00.000 130 mm [Hg] Diastolic Blood Pressure 2025-02-05 09:25:00.000 100 m m[Hg] Diastolic Blood Pressure 2025-02-03 09:51:00.000 112 m [...] MAINTAIN SITUATIONAL AWARENESS AND WILL NOTIFY CLINICAL PERSONNEL CLERK AND PHYSICIAN/PROVIDER WITH ANY CHANGE IN CONDITION. [code = SKILLED NURSE TO PERFORM ENVIRONMENTAL SAFETY RISK ASSESSMENT AND FALL RISK ASSESSMENT AND PROVIDE INSTRUCTION TO IMPLEMENT ENVIRONMENTAL SAFETY AND FALL PREVENTION STRATEGIES THROUGHOUT THE CERTIFICATION PERIOD. SKILLED NURSE WILL MAINTAIN SITUATIONAL AWARENESS AND WILL NOTIFY CLINICAL PERSONNEL CLERK AND PHYSICIAN/PROVIDER WITH ANY CHANGE IN CONDITION.] [...] CARE WILL BE ESTABLISHED THAT MEETS PATIENT'S JAIL NEEDS AND INCLUDES PATIENT GOAL FOR HOME [...] <paragraph>[Visit Date: 2024 by ANGÉLICA BOWLING LPN]:</paragraph><paragraph>SNV 02/05 ABNORMAL VITALS: BP ELEVATED, PT HAD NOT TAKEN BP MEDS YET FALLS: NO FALLS MEDICATION CHANGES: NONE OBSERVATION AND ASSESSMENT PROVIDED: PATIENT ALERT AND ORIENTED X4 PLEASANT AND COOPERATIVE DURING VISIT. PATIENT REPORTS THAT PCP TRIED TO MAKE CHANGES TO LOSARTAN DOSE BUT PATIENT PREFERS TO WAIT FOR A KIDNEY SPECIALIST TO COMPLETE HIS ASSESSMENT BEFORE MAKING ANY CHANGES TO BP MEDS. VSS, PATIENT SPEAKS IN FULL SENTENCES WITH NO ACUTE DISTRESS, +1 EDEMA BLE, DENIES PAIN. NO ISSUES WITH BOWELS OR BLADDER. APPETITE ADEQUATE. WOUND ON RIGHT LOWER LEG ALMOST HEALED. NO SIGNS OR SYMPTOMS OF INFECTION OBSERVED. WOUND CARE PERFORMED. PATIENT TOLERATED WELL. EDUCATION: LEG ELEVATION TO REDUCE SWELLING INTERVENTIONS NEEDED AT NEXT VISIT: ASSESSMENT WOUND CARE COMMUNICATION WITH MD: NEXT MD APPOINTMENT: VASCULAR ON 02/06, KIDNEY 02/10 PT AND CAREGIVER INSTRUCTED TO CALL [facility] WITH ANY QUESTIONS OR CONCERNS AND/OR CHANGES IN CONDITION. PT VERBALIZED UNDERSTANDING</paragraph> <paragraph>[Visit Date: 2024 by CECI AGUIRRE RN]:</paragraph><paragraph>1. [...] AND WITHOUT EDEMA. CLIENT INSTRUCTED TO CONTACT [facility] 01/05 WITH ANY ISSUES OR HEALTH CARE [...] PATIENT VERBALIZED UNDERSTANDING. PATIENT EDUCATED ON CALLING [facility] FIRST FOR ANY CONCERNS OR CHANGE IN CONDITION WELL NEXT SN VISIT PATIENT VERBALIZED UNDERSTANDING AND AGREES WITH PLAN</paragraph> Encounters Start Date/Time End Date/Time Encounter Type Admission Type Attending Clinicians Care Facility Care Department Encounter ID Discharge Date Discharge Status Discharge Condition Discharge Reason Percent Goals Met 2024-08-04 00:00:00 2025-03-31 00:00:00 Outpatient RECERTIFIC [facility] [id number] 21.05
--- OUTSIDE RECORDS SUMMARY | 2025-02-06 17:09 | XMS_ITS | Clinical Summary ---
Author Organization [address] [place] [address] [place] [phone] Phone Care Team Providers Care Deputy Court Name Role Phone Lillian Velasco MD Primary Care Provider [phone] Encounters Date Type Department Care Team Description 01/30/2025 2:30 PM EDT Consult Orthopedic [place] [id number] [phone] Bijan Dean, JANET Dermatophytosis of [...] 10:00 AM EDT Office Visit Orthopedic Surgery [place] [id number] [phone] Bijan Dean, DPM [address] [id number] Health Maintenance Due Date Last Done Comments [...] Insurance MEDICARE MEDICAID - [place] Care Teams Deputy Court Relationship Specialty Start Date End Date Lillian Velasco MD [address] [place] [address] , [address] [facility] [place], [place] PCP - General Internal Medicine 11/26/24
--- OUTSIDE RECORDS SUMMARY | 2025-02-06 17:10 | XMS_ITS | Clinical Summary ---
Author Organization Unknown Care Team Providers Care Refrigerator Tester Name Role Phone NOELLE RUSSELL MD, REBECA Unavailable Unavailable CAITLIN RN, ADMISSION NURSE, MARC Unavail able Unavailable YI ALEXIS, CLINICAL TALENT ACQUISITION SPECIALIST, ELISHA Rosario available Unavailable [employer] SERVICES AUDITOR, OLAMIDE Unavailable Unavailab richard BOWLING LPN, ANGÉLICA Unavailable Unacortney AVINA PT, DUANE Unavailable Unavailable TIMOTHY RN, CECI Unavailable Unavailable Payers Payer Name Policy Type Policy Number Effective Date Expira tion Date MEDICARE - [facility] [id number] Problems Condition Name Condition Details Condition Category [...] W/O RESID 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 10-09 00:00: 00 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 (CURRENT) USE OF 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 ICS/ANTIPLAT ELETS Active [...] 2023-10 00:00: 00 08-01 23:59 :00 No [id number] Per instruc tions TWICE A DAY FOR 7 DAYS Per instructio ns TWICE A DAY FOR 7 DAYS (route: oral) Med Classific ation: Anti-Infe ctive Agents ibuprofen 800 mg tablet 2023-10 00:00: 00 08-01 23:59 :00 No [id number] Per instruc tions EVERY 8 HOURS NEEDED Per instructio ns EVERY 8 HOURS NEEDED (route: oral) Med Classific ation: Analgesic , Anti-infl ammatory or Antipyret ic levofloxaci n 750 mg tablet 2023-10 00:00: 00 08-01 23:59 :00 No [id number] Per instruc tions EVERY DAY FOR 7 DAYS Per instructio ns EVERY DAY FOR 7 DAYS (route: oral) Med Classific ation: Anti-Infe ctive Agents methocarbam ol 500 mg tablet 2023-10 00:00: 00 08-01 23:59 :00 No [id number] Per instruc tions THREE TIMES A DAY NEEDED Per instructio ns THREE TIMES A DAY NEEDED (route: oral) Med Classific ation: Locomotor System clonidine HCl 0.2 mg tablet 2023-10 00:00: 08-01 23:59 :00 No [id number] Per instruc tions 3 TIMES A DAY Per instructio ns 3 TIMES A DAY (route: oral) Med Classific ation: Cardiovas cular Therapy Agents potassium chloride ER 20 mEq tablet,exte nded release 2023-10 00:00: 00 08-01 23:59 :00 No [id number] Per instruc tions EVERY DAY Per instructio ns EVERY DAY (route: oral) Med Classific ation: Electroly te Balance-N utritiona l Products Santyl 250 unit/gram topical ointment 07-04 00:00: 00 07-17 00:00 :00 No [id number] Per instruc tions Per instructio ns (route: topical) Med Classific ation: Dermatolo gical clonidine HCl 0.1 mg tablet 06-21 00:00: 00 07-17 00:00 :00 No [id number] Per instruc tions TWICE A DAY FOR 90 DAYS Per instructio ns TWICE A DAY FOR 90 DAYS (route: oral) Med Classific ation: Cardiovas cular Therapy Agents albuterol sulfate HFA 90 mcg/actuati on aerosol inhaler 2023-10 00:00: 00 08-01 23:59 :00 No [id number] 2 puff EVERY 6 HOURS 2 puff EVERY 6 HOURS (route: inhalation ) Med Classific ation: Respirato ry Therapy Agents Aspirin Childrens 81 mg chewable tablet 2023-10 00:00: 00 08-01 23:59 :00 No [id number] 1 tablet DAILY 1 tablet DAILY (route: oral) Med Classific ation: Hematolog ical Agents metformin 500 mg tablet 2023-10 00:00: 00 08-01 23:59 :00 No [id number] 1 tablet 2 TIMES DAILY 1 tablet 2 TIMES DAILY (route: oral) Med Classific ation: Endocrine tramadol 50 mg tablet 2023-10 00:00: 00 08-01 23:59 :00 No [id number] 1 tablet 2 TIMES DAILY 1 tablet 2 TIMES DAILY (route: oral) Med Classific ation: Analgesic , Anti-infl ammatory or Antipyret ic Vitamin D3 25 mcg (1,000 unit) capsule 2023-10 00:00: 00 08-01 23:59 :00 No [id number] 1 capsule DAILY 1 capsule DAILY (route: oral) Med Classific ation: Electroly te Balance-N utritiona l Products aspirin 81 mg tablet,claire yed release 2023-10 00:00: 00 01-13 00:00 :00 No [id number] 1 tablet DAILY 1 tablet DAILY (route: oral) Med Classific ation: Hematolog ical Agents betamethaso ne dipropionat e 0.05 % topical ointment 2023-10 00:00: 00 11-27 23:59 :00 No [id number] Per instruc tions DAILY Per instructio ns DAILY (route: topical) Med Classific ation: Dermatolo gical carvedilol 6.25 mg tablet 2023-10 00:00: 00 01-15 23:59 :00 No [id number] 1 tablet 2 TIMES DAILY 1 tablet 2 TIMES DAILY (route: oral) Med Classific ation: Cardiovas cular Therapy Agents clonidine HCl 0.2 mg tablet 2023-10 00:00: 00 Yes [id number] 1 tablet 3 TIMES DAILY 1 tablet 3 TIMES DAILY (route: oral) Med Classific ation: Cardiovas cular Therapy Agents losartan 50 mg tablet 2023-10 00:00: 00 01-23 23:59 :00 No [id number] 1 tablet DAILY 1 tablet DAILY (route: oral) Med Classific ation: Cardiovas cular Therapy Agents naloxone 4 mg/actuatio n nasal spray 2023-10 00:00: 00 01-15 23:59 :00 No [id number] 1 spray DIRECTED 1 spray DIRECTED (route: nasal) Med Classific ation: Antidotes and other Reversal Agents tramadol 50 mg tablet 2023-10 00:00: 00 10-14 23:59 :00 No [id number] 1 tablet EVERY 6 HOURS 1 tablet EVERY 6 HOURS (route: oral) Med Classific ation: Analgesic , Anti-infl ammatory or Antipyret ic methocarbam ol 500 mg tablet 2023-10 00:00: 00 10-14 23:59 :00 No [id number] 1 tablet 3 TIMES DAILY 1 tablet 3 TIMES DAILY (route: oral) Med Classific ation: Locomotor System gabapentin 100 mg capsule 2023-10 00:00: 00 01-15 23:59 :00 No [id number] 1 capsule BEDTIME 1 capsule BEDTIME (route: oral) Med Classific ation: Central Nervous System Agents gentamicin 0.1 % topical ointment 2023-10 00:00: 00 10-14 23:59 :00 No [id number] Per instruc tions DAILY Per instructio ns DAILY (route: topical) Med Classific ation: Dermatolo gical cephalexin 500 mg capsule 2023-10 00:00: 00 10-14 23:59 :00 No [id number] 500 mg 4 TIMES DAILY 500 mg 4 TIMES DAILY (route: oral) Med Classific ation: Anti-Infe ctive Agents aspirin 81 mg tablet,claire yed release 2023-10 00:00: 00 Yes [id number] 1 tablet DAILY 1 tablet DAILY (route: oral) Med Classific ation: Hematolog ical Agents atorvastati n 80 mg tablet 2023-10 00:00: 00 Yes [id number] 1 tablet BEDTIME 1 tablet BEDTIME (route: oral) Med Classific ation: Cardiovas cular Therapy Agents betamethaso ne dipropionat e 0.05 % topical ointment 2023-10 00:00: 00 11-27 23:59 :00 No [id number] Per instruc tions DAILY Per instructio ns DAILY (route: topical) Med Classific ation: Dermatolo gical carvedilol 6.25 mg tablet 2023-10 00:00: 00 01-13 00:00 :00 No [id number] 1 tablet 2 TIMES DAILY 1 tablet 2 TIMES DAILY (route: oral) Med Classific ation: Cardiovas cular Therapy Agents clonidine HCl 0.2 mg tablet 2023-10 00:00: 00 01-13 00:00 :00 No [id number] 1 tablet 3 TIMES DAILY 1 tablet 3 TIMES DAILY (route: oral) Med Classific ation: Cardiovas cular Therapy Agents clopidogrel 75 mg tablet 2023-10 00:00: 00 01-23 23:59 :00 No [id number] 1 tablet DAILY 1 tablet DAILY (route: oral) Med Classific ation: Hematolog ical Agents gabapentin 300 mg capsule 2023-10 00:00: 00 01-15 23:59 :00 No [id number] 1 capsule 2 TIMES DAILY 1 capsule 2 TIMES DAILY (route: oral) Med Classific ation: Central Nervous System Agents losartan 50 mg tablet 2023-10 00:00: 00 11-27 23:59 :00 No [id number] 0.5 tablet 2 TIMES DAILY 0.5 tablet 2 TIMES DAILY (route: oral) Med Classific ation: Cardiovas cular Therapy Agents methocarbam ol 500 mg tablet 2023-10 00:00: 00 10-14 23:59 :00 No [id number] 1 tablet 3 TIMES DAILY 1 tablet 3 TIMES DAILY (route: oral) Med Classific ation: Locomotor System morphine 15 mg immediate release tablet 2023-10 00:00: 00 10-14 23:59 :00 No [id number] 1 tablet EVERY 12 HOURS 1 tablet EVERY 12 HOURS (route: oral) Med Classific ation: Analgesic , Anti-infl ammatory or Antipyret ic naloxone 4 mg/actuatio n nasal spray 2023-10 00:00: 00 01-13 00:00 :00 No [id number] 1 spray O2 - PRN 1 spray O2 - PRN (route: nasal) Med Classific ation: Antidotes and other Reversal Agents oxycodone 5 mg tablet 2023-10 00:00: 00 10-14 23:59 :00 No [id number] 1 tablet EVERY 6 HOURS 1 tablet EVERY 6 HOURS (route: oral) Med Classific ation: Analgesic , Anti-infl ammatory or Antipyret ic betamethaso ne dipropionat e 0.05 % topical ointment 12-13 00:00: 00 Yes [id number] Per instruc tions DAILY Per instructio ns DAILY (route: topical) Med Classific ation: Dermatolo gical losartan 50 mg tablet 01-23 00:00: 00 Yes [id number] 0.5 tablet 2 TIMES DAILY 0.5 tablet 2 TIMES DAILY (route: oral) Med Classific ation: Cardiovas cular Therapy Agents Vitamin D3 25 mcg (1,000 unit) capsule 01-27 00:00: 00 Yes [id number] 1 capsule DAILY 1 capsule DAILY (route: [...] MAINTAIN SITUATIONAL AWARENESS AND WILL NOTIFY CLINICAL DRESSMAKER GARMENT FITTER AND PHYSICIAN/PROVIDER WITH ANY CHANGE IN CONDITION. [code = SKILLED NURSE TO PERFORM ENVIRONMENTAL SAFETY RISK ASSESSMENT AND FALL RISK ASSESSMENT AND PROVIDE INSTRUCTION TO IMPLEMENT ENVIRONMENTAL SAFETY AND FALL PREVENTION STRATEGIES THROUGHOUT THE CERTIFICATION PERIOD. SKILLED NURSE WILL MAINTAIN SITUATIONAL AWARENESS AND WILL NOTIFY CLINICAL DRESSMAKER GARMENT FITTER AND PHYSICIAN/PROVIDER WITH ANY CHANGE IN CONDITION.] [...] PT VERBALIZED UNDERSTANDING</paragraph> <paragraph>[Visit Date: 2024 by CCEI AGUIRRE RN]:</paragraph><paragraph>1. ABNORMAL FINDINGS/SIGNIFICANT CHANGES BP ELEVATED [...] WITHOUT EDEMA. CLIENT INSTRUCTED TO CONTACT [facility] 01/05 WITH ANY ISSUES OR HEALTH CARE [...] PATIENT VERBALIZED UNDERSTANDING. PATIENT EDUCATED ON CALLING [facility] FOR ANY CONCERNS OR CHANGE IN CONDITION WELL NEXT SN VISIT PATIENT VERBALIZED UNDERSTANDING AND AGREES WITH PLAN</paragraph> Encounters Start Date/Time End Date/Time Encounter Type Admission Type Attending Clinicians Care Facility Care Department Encounter ID Discharge Date Discharge Status Discharge Condition Discharge Reason Percent Goals Met 2024-08-04 00:00:00 2025-03-31 00:00:00 Outpatient RECERTIFIC [facility] [id number] 21.05
== END 2025-02-06 16:23 | disposition home or self-care (01) ==
LOC: HO.HVS 15:24
PROVIDERS: PCP Internal Medicine; Visit Provider Physician Assistant Surgical
DX: I73.9 Peripheral vascular disease, unspecified (principal)
CPT/HCPCS: 99213

== ENCOUNTER → 2025-02-06 15:23 | Outpatient (BNVA) | payer MEDICARE, SELFPAY | PROVIDERS: PCP Internal Medicine; Visit Provider Physician Assistant Surgical | DX: I73.9 Peripheral vascular disease, unspecified (principal) | CPT/HCPCS: 99212 ==

== ENCOUNTER → 2025-02-06 23:59 | Outpatient (BNV) | payer MEDICARE, SELFPAY | PROVIDERS: PCP Internal Medicine; Visit Provider Internal Medicine | DX: I87.2 Venous insufficiency (chronic) (peripheral) (principal); E11.40 Type 2 diabetes mellitus with diabetic neuropathy, unspecified; I10 Essential (primary) hypertension | CPT/HCPCS: G0179 ==

== ENCOUNTER → 2025-02-10 08:55 | Outpatient (BNVA) | payer MEDICARE, SELFPAY | PROVIDERS: PCP Internal Medicine; Visit Provider Internal Medicine Hypertension Specialist | DX: Z13.89 Encounter for screening for other disorder (principal) ==

== ENCOUNTER → 2025-02-11 09:13 | Outpatient (BNVA) | payer MEDICARE, SELFPAY | PROVIDERS: PCP Internal Medicine; Visit Provider Internal Medicine Hypertension Specialist | DX: I10 Essential (primary) hypertension (principal) | CPT/HCPCS: 93786; 93788 ==

== ENCOUNTER 2025-03-13 14:25 | Outpatient (AMB) | payer MEDICARE, MEDICAID, SELFPAY ==
[2025-03-13 15:07] VITALS: BP 154/120; PULSE 88; O2SAT 96; BMI 41.8
--- NOTE | 2025-03-13 15:07 | HO.NEPHOV_ITS ---
Vital Signs 03/13/25 15:07 Height 5 ft 7 in Weight 267 lb BMI 41.8 BP 154/120 H Blood Pressure Location Lt brachial Position Sitting Pulse 88 Pulse Source Pulse Oximeter Pulse Oximetry (%) 96 Oxygen Delivery Method Room Air Intake Visit Reasons: FU/ Conf Intake Note: Patient stop taking all her medication 2 wks know, she is only taking he aspirin 81 mg. Her BP was 190/110 today this morning. 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 Accompanied by: Self / Same As Patient Allergies amlodipine Allergy (Intermediate, Verified 03/13/25 15:10) drowsiness, swelling of feet and ankles lisinopril Allergy (Intermediate, Verified 03/13/25 15:10) cough hydralazine Allergy (Verified 03/13/25 15:10) Swelling metformin Adverse Reaction (Verified 03/13/25 15:10) Diarrhea Lisinopril-Hydrochlorothiazide Adverse Reaction (Intermediate, Uncoded 02/04/25 11:02) Leg swelling Metoprolol Tartrate Adverse Reaction (Intermediate, Uncoded 02/04/25 11:02) Leg swelling Medication List - Last Reconciled 03/13/25 by Velasquez Zepeda MD albuterol sulfate 90 mcg/actuation 2 puffs inhalation Q6H PRN aspirin (Adult Aspirin Regimen) 81 mg PO DAILY 90 days atorvastatin 80 mg PO BEDTIME 90 days blood sugar diagnostic (Freestyle [employer] strips) USe 1 test strip once a day blood-glucose meter (Freestyle [employer] meter) As directed cholecalciferol (vitamin D3) 25 mcg PO DAILY compr.stocking,knee,long,large As directed sodium chlor-hypochlorous acid 0.033 % (Vashe) 1 irrig irrigation Q3-4H PRN 30 days Do you need a note to return to daycare/school/sports/work: No HPI Comments Details: Paris is a pleasant 70-year-old woman with a history of longstanding hypertension. She has been referred for evaluation of hypertension. She has had multiple hospitalizations for hypertension. She has intolerance to various antihypertensive medications. Recently she was found to have hypokalemia with resistant hypertension and hence this evaluation. She was history of diabetes mellitus and venous ulcers as well. 03/13/25 Underwent ABPM BP was sub optimal Nocturnal HTN present She has stopped all anti hypertensives for the past 2 weeks due to edema. [facility] Medical History Hypertension Wound of lower extremity Venous stasis ulcer Chronic ulcer of left ankle Diabetes Hypertension Abnormal Pap smear of cervix Diabetes mellitus Hypertension Renal calculi Diastasis recti Dyslipidemia associated with type 2 diabetes mellitus Abdominal mass Microalbuminuria Renal calculi Morbid obesity Surgical History Hx of prior ablation treatment Family History Father Seizures Mother Seizures Congenital heart disease in adult Hypotension Maternal Grandfather Leukemia Social History Household Members: Family Housing: House Do you presently have visiting nurse or other home services: No Alcohol intake: current Alcohol intake frequency: holidays/special occasions only Alcohol type: wine Patient Tobacco Use Status: Former Tobacco user Tobacco use type: Cigarette e-Cigarette/Vaping Use: Never Used Second Hand Smoke Exposure: No Substance Use Type: Marijuana service: No Current occupational status: employed Current occupational exposures/hazards: No Cognitive needs: No Hearing needs: No Vision needs: No Physical Exam Vital Signs: Last Vital Signs Pulse 88 03/13/25 15:07 BP 154/120 H 03/13/25 15:07 Pulse Ox 96 03/13/25 15:07 Oxygen Delivery Method Room Air 03/13/25 15:07 BMI result Body Mass Index 41.8 Comfortable Neck supple no JVD. Lungs entry equal no rales. Heart S1-S2 heard no gallop or rub. Abdomen soft nontender. Neuro alert awake oriented. No asterixis. Extremities no edema. Results Reviewed Nephrology Results: Hgb 11.6 g/dl (12.0-16.0) L 02/04/25 WBC 6.8 X10*3/uL (4.8-10.8) 02/04/25 Plt Count 199 X10*3/uL (160-400) 02/04/25 Sodium 141 mmol/L (135-145) 02/04/25 Potassium 4.1 mmol/L (3.3-5.1) 02/04/25 Chloride 106 mmol/L (96-108) 02/04/25 Carbon Dioxide 29 mmol/L (22-29) 02/04/25 BUN 19 mg/dL (9-16) H 02/04/25 Creatinine 0.74 mg/dL (0.5-1.4) 02/04/25 Calcium 9.1 mg/dL (8.4-10.2) 02/04/25 Assessment & Plan Assessment & Plan (1) HTN (hypertension): Code(s): I10 - Essential (primary) hypertension Category: Medical Qualifiers: Hypertension type: essential hypertension Qualified Code(s): I10 - Essential (primary) hypertension (2) Hypokalemia: Code(s): E87.6 - Hypokalemia Category: Medical (3) Uncontrolled hypertension: Code(s): I10 - Essential (primary) hypertension Category: Medical (4) Labile hypertension: Code(s): R09.89 - Other specified symptoms and signs involving the circulatory and respiratory systems Category: Medical Plan 70-year-old woman with resistant hypertension with hypokalemia and increased BMI. Given the history of hypokalemia and alkalosis in the past, hyperaldosteronism should be ruled out. Recent tCO2 and K are normal without supplements Obstructive sleep apnea could be a contributing factor in this needs to be screened for. Elevated BMI would be a contributing factor as well. 24 hour ambulatory blood pressure monitoring shows sub optimal HTN serum aldosterone and plasma renin activity - normal; PA/PRA ratio elevated at 48; she was on Losartan Rechck PA/PRA while she has been off all anti hyppertensives for 2 weeks After blood work tomorrow, will START ALDACTAZIDE 25/25 one a day Titrate dose slowly . Orders: Orders Metanephrines, Plasma 1 Day E87.6 - Hypokalemia, I10 - Essential (primary) hypertension Aldost/Renin 1 Day E87.6 - Hypokalemia, I10 - Essential (primary) hypertension Aldosterone 1 Day E87.6 - Hypokalemia, I10 - Essential (primary) hypertension Renin 1 Day E87.6 - Hypokalemia, I10 - Essential (primary) hypertension Basic Metabolic Panel 1 Day E87.6 - Hypokalemia, R09.89 - Other specified symptoms and signs involving the circulatory and respiratory systems Medications: New spironolacton-hydrochlorothiaz 25-25 mg 1 tab PO DAILY 90 tabs 0RF Coding Level of Care Code Est Pt Level 4 (57740) Diagnoses Essential hypertension I10 Hypertension type: essential hypertension Hypokalemia E87.6 Uncontrolled hypertension I10 Labile hypertension R09.89
--- OUTSIDE RECORDS SUMMARY | 2025-03-13 17:05 | XMS_ITS | Clinical Summary ---
Author Organization Unknown Care Team Providers Care Recreation Superintendent Name Role Phone NOELLE RUSSELL MD, REBECA Unavailable Unavailable CAITLIN RN, ADMISSION NURSE, MARC Unavail able Unavailable YI ALEXIS, CLINICAL EXTRUSION MANAGER, ELISHA Rosario available Unavailable CALIN OPEN HEARTH HELPER, OLAMIDE Unavailable Unavailab richard BOWLING LPN, ANGÉLICA Unavailable Unacortney AVINA PT, DUANE Unavailable Unavailable TIMOTHY RN, CECI Unavailable Unavailable Payers Payer Name Policy Type Policy Number Effective Date Expira tion Date MEDICARE - [facility] [id number] Problems Condition Name Condition Details Condition Category [...] USE OF ASPIRIN Active 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:00: 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) USE OF 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 ICS/ANTIPLAT ELETS Active [...] 2023-10 00:00: 00 08-01 23:59 :00 No [id number] Per instruc tions TWICE A DAY FOR 7 DAYS Per instructio ns TWICE A DAY FOR 7 DAYS (route: oral) Med Classific ation: Anti-Infe ctive Agents ibuprofen 800 mg tablet 2023-10 00:00: 00 08-01 23:59 :00 No [id number] Per instruc tions EVERY 8 HOURS NEEDED Per instructio ns EVERY 8 HOURS NEEDED (route: oral) Med Classific ation: Analgesic , Anti-infl ammatory or Antipyret ic levofloxaci n 750 mg tablet 2023-10 00:00: 00 08-01 23:59 :00 No [id number] Per instruc tions EVERY DAY FOR 7 DAYS Per instructio ns EVERY DAY FOR 7 DAYS (route: oral) Med Classific ation: Anti-Infe ctive Agents methocarbam ol 500 mg tablet 2023-10 00:00: 00 08-01 23:59 :00 No [id number] Per instruc tions THREE TIMES A DAY NEEDED Per instructio ns THREE TIMES A DAY NEEDED (route: oral) Med Classific ation: Locomotor System clonidine HCl 0.2 mg tablet 2023-10 00:00: 08-01 23:59 :00 No [id number] Per instruc tions 3 TIMES A DAY Per instructio ns 3 TIMES A DAY (route: oral) Med Classific ation: Cardiovas cular Therapy Agents potassium chloride ER 20 mEq tablet,exte nded release 2023-10 00:00: 00 08-01 23:59 :00 No [id number] Per instruc tions EVERY DAY Per instructio ns EVERY DAY (route: oral) Med Classific ation: Electroly te Balance-N utritiona l Products Santyl 250 unit/gram topical ointment 07-04 00:00: 00 07-17 00:00 :00 No [id number] Per instruc tions Per instructio ns (route: topical) Med Classific ation: Dermatolo gical clonidine HCl 0.1 mg tablet 06-21 00:00: 00 07-17 00:00 :00 No [id number] Per instruc tions TWICE A DAY FOR 90 DAYS Per instructio ns TWICE A DAY FOR 90 DAYS (route: oral) Med Classific ation: Cardiovas cular Therapy Agents albuterol sulfate HFA 90 mcg/actuati on aerosol inhaler 2023-10 00:00: 00 08-01 23:59 :00 No [id number] 2 puff EVERY 6 HOURS 2 puff EVERY 6 HOURS (route: inhalation ) Med Classific ation: Respirato ry Therapy Agents Aspirin Childrens 81 mg chewable tablet 2023-10 00:00: 00 08-01 23:59 :00 No [id number] 1 tablet DAILY 1 tablet DAILY (route: oral) Med Classific ation: Hematolog ical Agents metformin 500 mg tablet 2023-10 00:00: 00 08-01 23:59 :00 No [id number] 1 tablet 2 TIMES DAILY 1 tablet 2 TIMES DAILY (route: oral) Med Classific ation: Endocrine tramadol 50 mg tablet 2023-10 00:00: 00 08-01 23:59 :00 No [id number] 1 tablet 2 TIMES DAILY 1 tablet 2 TIMES DAILY (route: oral) Med Classific ation: Analgesic , Anti-infl ammatory or Antipyret ic Vitamin D3 25 mcg (1,000 unit) capsule 2023-10 00:00: 00 08-01 23:59 :00 No [id number] 1 capsule DAILY 1 capsule DAILY (route: oral) Med Classific ation: Electroly te Balance-N utritiona l Products aspirin 81 mg tablet,claire yed release 2023-10 00:00: 00 01-13 00:00 :00 No [id number] 1 tablet DAILY 1 tablet DAILY (route: oral) Med Classific ation: Hematolog ical Agents betamethaso ne dipropionat e 0.05 % topical ointment 2023-10 00:00: 00 11-27 23:59 :00 No [id number] Per instruc tions DAILY Per instructio ns DAILY (route: topical) Med Classific ation: Dermatolo gical carvedilol 6.25 mg tablet 2023-10 00:00: 00 01-15 23:59 :00 No [id number] 1 tablet 2 TIMES DAILY 1 tablet 2 TIMES DAILY (route: oral) Med Classific ation: Cardiovas cular Therapy Agents clonidine HCl 0.2 mg tablet 2023-10 00:00: 00 02-20 23:59 :00 No [id number] 1 tablet 3 TIMES DAILY 1 tablet 3 TIMES DAILY (route: oral) Med Classific ation: Cardiovas cular Therapy Agents losartan 50 mg tablet 2023-10 00:00: 00 01-23 23:59 :00 No [id number] 1 tablet DAILY 1 tablet DAILY (route: oral) Med Classific ation: Cardiovas cular Therapy Agents naloxone 4 mg/actuatio n nasal spray 2023-10 00:00: 00 01-15 23:59 :00 No [id number] 1 spray DIRECTED 1 spray DIRECTED (route: nasal) Med Classific ation: Antidotes and other Reversal Agents tramadol 50 mg tablet 2023-10 00:00: 00 10-14 23:59 :00 No [id number] 1 tablet EVERY 6 HOURS 1 tablet EVERY 6 HOURS (route: oral) Med Classific ation: Analgesic , Anti-infl ammatory or Antipyret ic methocarbam ol 500 mg tablet 2023-10 00:00: 00 10-14 23:59 :00 No [id number] 1 tablet 3 TIMES DAILY 1 tablet 3 TIMES DAILY (route: oral) Med Classific ation: Locomotor System gabapentin 100 mg capsule 2023-10 00:00: 00 01-15 23:59 :00 No [id number] 1 capsule BEDTIME 1 capsule BEDTIME (route: oral) Med Classific ation: Central Nervous System Agents gentamicin 0.1 % topical ointment 2023-10 00:00: 00 10-14 23:59 :00 No [id number] Per instruc tions DAILY Per instructio ns DAILY (route: topical) Med Classific ation: Dermatolo gical cephalexin 500 mg capsule 2023-10 00:00: 00 10-14 23:59 :00 No [id number] 500 mg 4 TIMES DAILY 500 mg 4 TIMES DAILY (route: oral) Med Classific ation: Anti-Infe ctive Agents aspirin 81 mg tablet,claire yed release 2023-10 00:00: 00 Yes [id number] 1 tablet DAILY 1 tablet DAILY (route: oral) Med Classific ation: Hematolog ical Agents atorvastati n 80 mg tablet 2023-10 00:00: 00 Yes [id number] 1 tablet BEDTIME 1 tablet BEDTIME (route: oral) Med Classific ation: Cardiovas cular Therapy Agents betamethaso ne dipropionat e 0.05 % topical ointment 2023-10 00:00: 00 11-27 23:59 :00 No [id number] Per instruc tions DAILY Per instructio ns DAILY (route: topical) Med Classific ation: Dermatolo gical carvedilol 6.25 mg tablet 2023-10 00:00: 00 01-13 00:00 :00 No [id number] 1 tablet 2 TIMES DAILY 1 tablet 2 TIMES DAILY (route: oral) Med Classific ation: Cardiovas cular Therapy Agents clonidine HCl 0.2 mg tablet 2023-10 00:00: 00 01-13 00:00 :00 No [id number] 1 tablet 3 TIMES DAILY 1 tablet 3 TIMES DAILY (route: oral) Med Classific ation: Cardiovas cular Therapy Agents clopidogrel 75 mg tablet 2023-10 00:00: 00 01-23 23:59 :00 No [id number] 1 tablet DAILY 1 tablet DAILY (route: oral) Med Classific ation: Hematolog ical Agents gabapentin 300 mg capsule 2023-10 00:00: 00 01-15 23:59 :00 No [id number] 1 capsule 2 TIMES DAILY 1 capsule 2 TIMES DAILY (route: oral) Med Classific ation: Central Nervous System Agents losartan 50 mg tablet 2023-10 00:00: 00 11-27 23:59 :00 No [id number] 0.5 tablet 2 TIMES DAILY 0.5 tablet 2 TIMES DAILY (route: oral) Med Classific ation: Cardiovas cular Therapy Agents methocarbam ol 500 mg tablet 2023-10 00:00: 00 10-14 23:59 :00 No [id number] 1 tablet 3 TIMES DAILY 1 tablet 3 TIMES DAILY (route: oral) Med Classific ation: Locomotor System morphine 15 mg immediate release tablet 2023-10 00:00: 00 10-14 23:59 :00 No [id number] 1 tablet EVERY 12 HOURS 1 tablet EVERY 12 HOURS (route: oral) Med Classific ation: Analgesic , Anti-infl ammatory or Antipyret ic naloxone 4 mg/actuatio n nasal spray 2023-10 00:00: 00 01-13 00:00 :00 No [id number] 1 spray O2 - PRN 1 spray O2 - PRN (route: nasal) Med Classific ation: Antidotes and other Reversal Agents oxycodone 5 mg tablet 2023-10 00:00: 00 10-14 23:59 :00 No [id number] 1 tablet EVERY 6 HOURS 1 tablet EVERY 6 HOURS (route: oral) Med Classific ation: Analgesic , Anti-infl ammatory or Antipyret ic betamethaso ne dipropionat e 0.05 % topical ointment 12-13 00:00: 00 Yes [id number] Per instruc tions DAILY Per instructio ns DAILY (route: topical) Med Classific ation: Dermatolo gical losartan 50 mg tablet 01-23 00:00: 00 02-12 23:59 :00 No [id number] 0.5 tablet 2 TIMES DAILY 0.5 tablet 2 TIMES DAILY (route: oral) Med Classific ation: Cardiovas cular Therapy Agents Vitamin D3 25 mcg (1,000 unit) capsule 01-27 00:00: 00 Yes [id number] 1 capsule DAILY 1 capsule DAILY (route: oral) Med Classific ation: Electroly te Balance-N utritiona l Products albuterol sulfate HFA 90 mcg/actuati on aerosol inhaler 02-12 00:00: 00 Yes [id number] 2 puff DIRECTED 2 puff DIRECTED (route: inhalation ) Med Classific ation: Respirato ry Therapy Agents carvedilol 6.25 mg tablet 02-12 00:00: 00 Yes [id number] 2 tablet 2 TIMES DAILY 2 tablet 2 TIMES DAILY (route: oral) Med Classific ation: Cardiovas cular Therapy Agents losartan 50 mg tablet 02-12 00:00: 00 Yes [id number] 1 tablet 2 TIMES DAILY 1 tablet 2 TIMES DAILY (route: oral) Med Classific ation: Cardiovas cular Therapy Agents clonidine HCl 0.3 mg tablet 02-20 00:00: 00 Yes [id number] 1 tablet 3 TIMES DAILY 1 tablet 3 TIMES DAILY (route: oral) Med Classific ation: Cardiovas cular Therapy Agents Immunizations Ordered Immunization Name Filled Immunization Name Date Status Comments Refusal Reason TETANUS, TDAP (TETANUS) 2025-01-23 00:00:00 Vital Signs Vital Name Observation Time Observation Value Commen ts Temperature 2025-03-13 15:25:00.000 98.4 [degF] Temperature 2025-03-05 10:26:00.000 97.7 [degF] Temperature 2025-02-24 09:23:00.000 98.2 [degF] Temperature 2025-02-20 13:36:00.000 97.9 [degF] Temperature 2025-02-19 09:10:00.000 98.4 [degF] Temperature 2025-02-17 09:28:00.000 97.4 [degF] Temperature 2025 09:12:00.000 97.2 [degF] Temperature 2025-02-12 09:49:00.000 97.7 [degF] Temperature 2025-02-10 11:39:00.000 98.2 [degF] Temperature 2025-02-07 09:56:00.000 97.8 [degF] Temperature 2025-02-05 09:25:00.000 98.3 [degF] Temperature 2025-02-03 09:51:00.000 98 [degF] Temperature 2025-01-31 09:39:00.000 97.2 [degF] Pulse 2025-03-13 15:25:00.000 92 /min Pulse 2025-03-05 10:26:00.000 77 /min Pulse 2025-02-24 09:23:00.000 57 /min Pulse 2025-02-20 13:36:00.000 55 /min Pulse 2025-02-19 09:10:00.000 55 /min Pulse 2025-02-17 09:28:00.000 58 /min Pulse 2025 09:12:00.000 71 /min Pulse 2025-02-12 09:49:00.000 60 /min Pulse 2025-02-10 11:39:00.000 60 /min Pulse 2025-02-07 09:56:00.000 56 /min Pulse 2025-02-05 09:25:00.000 60 /min Pulse 2025-02-03 09:51:00.000 61 /min Pulse 2025-01-31 09:39:00.000 60 /min O2 Saturation (%) 2025-03-13 15:25:00.000 97 % O2 Saturation (%) 2025-02-24 09:23:00.000 98 % O2 Saturation (%) 2025-02-20 13:36:00.000 98 % O2 Saturation (%) 2025-02-19 09:10:00.000 98 % O2 Saturation (%) 2025-02-17 09:28:00.000 97 % O2 Saturation (%) 2025 09:12:00.000 98 % O2 Saturation (%) 2025-02-12 09:49:00.000 98 % O2 Saturation (%) 2025-02-10 11:39:00.000 99 % O2 Saturation (%) 2025-02-07 09:56:00.000 99 % O2 Saturation (%) 2025-02-03 09:51:00.000 100 % O2 Saturation (%) 2025-01-31 09:39:00.000 98 % Respirations 2025-03-13 15:25:00.000 18 /min Respirations 2025-03-05 10:26:00.000 14 /min Respirations 2025-02-24 09:23:00.000 14 /min Respirations 2025-02-20 13:36:00.000 14 /min Respirations 2025-02-19 09:10:00.000 14 /min Respirations 2025-02-17 09:28:00.000 14 /min Respirations 2025 09:12:00.000 18 /min Respirations 2025-02-12 09:49:00.000 18 /min Respirations 2025-02-10 11:39:00.000 18 /min Respirations 2025-02-07 09:56:00.000 14 /min Respirations 2025-02-03 09:51:00.000 16 /min Respirations 2025-01-31 09:39:00.000 18 /min Systolic Blood Pressure 2025-03-05 10:28:00.000 165 mm [Hg] Systolic Blood Pressure 2025-02-24 09:23:00.000 164 mm [Hg] Systolic Blood Pressure 2025-02-20 13:55:00.000 172 mm [Hg] Systolic Blood Pressure 2025-02-19 09:10:00.000 166 mm [Hg] Systolic Blood Pressure 2025-02-17 09:28:00.000 162 mm [Hg] Systolic Blood Pressure 2025 09:12:00.000 148 mm [Hg] Systolic Blood Pressure 2025-02-12 09:49:00.000 160 mm [Hg] Systolic Blood Pressure 2025-02-10 11:39:00.000 148 mm [Hg] Systolic Blood Pressure 2025-02-07 09:56:00.000 170 mm [Hg] Systolic Blood Pressure 2025-02-05 09:25:00.000 162 mm [Hg] Systolic Blood Pressure 2025-02-03 09:51:00.000 165 mm [Hg] Systolic Blood Pressure 2025-01-31 09:39:00.000 130 mm [Hg] Diastolic Blood Pressure 2025-03-05 10:28:00.000 98 mm [Hg] Diastolic Blood Pressure 2025-02-24 09:23:00.000 86 mm [Hg] Diastolic Blood Pressure 2025-02-20 13:55:00.000 105 m m[Hg] Diastolic Blood Pressure 2025-02-19 09:10:00.000 101 m m[Hg] Diastolic Blood Pressure 2025-02-17 09:28:00.000 97 mm [Hg] Diastolic Blood Pressure 2025 09:12:00.000 90 mm [Hg] Diastolic Blood Pressure 2025-02-12 09:49:00.000 90 mm [Hg] Diastolic Blood Pressure 2025-02-10 11:39:00.000 100 m m[Hg] Diastolic Blood Pressure 2025-02-07 09:56:00.000 107 m m[Hg] Diastolic Blood Pressure 2025-02-05 09:25:00.000 100 m [...] MAINTAIN SITUATIONAL AWARENESS AND WILL NOTIFY CLINICAL GENERAL TELLER AND PHYSICIAN/PROVIDER WITH ANY CHANGE IN CONDITION. [code = SKILLED NURSE TO PERFORM ENVIRONMENTAL SAFETY RISK ASSESSMENT AND FALL RISK ASSESSMENT AND PROVIDE INSTRUCTION TO IMPLEMENT ENVIRONMENTAL SAFETY AND FALL PREVENTION STRATEGIES THROUGHOUT THE CERTIFICATION PERIOD. SKILLED NURSE WILL MAINTAIN SITUATIONAL AWARENESS AND WILL NOTIFY CLINICAL GENERAL TELLER AND PHYSICIAN/PROVIDER WITH ANY CHANGE IN CONDITION.] [...] AGENCY OR PHYSICIAN/PROVIDER OF ANY CONCERNS.] Goal 2024-11-27 Patient Goal - WOUNDS TO [...] <paragraph>[Visit Date: 2024 by ANGÉLICA BOWLING LPN]:</paragraph><paragraph>SNV 03/13 ABNORMAL VITALS: ELEVATED BLOOD PRESSURE FALLS: NO FALLS OBSERVATION AND ASSESSMENT PROVIDED: PT ALERT ORIENTEDX 4PLEASANT COOPERATIVE DURING VISIT. PATIENT REPORTS FEELING WELL, EDEMA ON BILATERAL LOWER EXTREMITIES HAS DECREASED SIGNIFICANTLY. PATIENT REPORTS NOT TAKING BLOOD PRESSURE MEDICATIONS, TAKES DAILY BABY ASA, NOTHING ELSE. PATIENT HAS AN APPOINTMENT WITH KIDNEY DOCTOR LATER TODAY TO DISCUSS. PATIENT STATES SHE WANTS A NEW BASELINE, NEW PLAN OF CARE FOR HER HTN CURRENT BP MEDICATIONS ARE NOT WORKING FOR HER DUE TO EDEMA, NOT BEING ABLE TO WEAR SHOES AND MOVE AROUND WELL SHE NORMALLY WOULD. REVIEWED BENEFITS OF TAKING BP MEDICATIONS WITH PT. BLOOD PRESSURE ELEVATED, PATIENT DENIES HEADACHES, DIZZINESS OR VISUAL CHANGES, DENIES PAIN. NO ISSUES WITH BOWELS OR BLADDER. APPETITE ADEQUATE. EDUCATION: REVIEWED MEDICATION COMPLIANCE, LOW SALT , READING LABELS INTERVENTIONS NEEDED AT NEXT VISIT: ASSESSMENT NEXT MD APPOINTMENT: OPERATIONS EXPERT / PT AND CAREGIVER INSTRUCTED TO CALL ANALISA WATSON WITH ANY QUESTIONS OR CONCERNS AND/OR CHANGES IN CONDITION. PATIENT VERBALIZED UNDERSTANDING</paragraph> Encounters Start Date/Time End Date/Time Encounter Type Admission Type Attending Clinicians Care Facility Care Department Encounter ID Discharge Date Discharge Status Discharge Condition Discharge Reason Percent Goals Met 2025-01-31 00:00:00 2025-03-31 00:00:00 Outpatient RECERTIFIC [facility] [id number] 47.37
== END 2025-03-13 15:32 | disposition home or self-care (01) ==
LOC: HO.HKA 14:26
PROVIDERS: PCP Internal Medicine; Visit Provider Internal Medicine Hypertension Specialist
DX: I10 Essential (primary) hypertension (principal); E87.6 Hypokalemia; R09.89 Other specified symptoms and signs involving the circulatory and respiratory systems
CPT/HCPCS: 99214

== ENCOUNTER → 2025-03-13 14:25 | Outpatient (BNVA) | payer MEDICARE, SELFPAY | PROVIDERS: PCP Internal Medicine; Visit Provider Internal Medicine Hypertension Specialist | DX: I10 Essential (primary) hypertension (principal); R09.89 Other specified symptoms and signs involving the circulatory and respiratory systems; E87.6 Hypokalemia | CPT/HCPCS: 99212 ==

== ENCOUNTER 2025-03-18 12:09 | Outpatient (REF) | payer MEDICARE, MEDICAID, SELFPAY ==
[2025-03-18 14:11] LABS: Alanine Aminotransferase 18 U/L (0-31); Albumin Level 4.2 g/dL (3.5-5.0); Alkaline Phosphatase 76 U/L (39-117); Anion Gap 11 (12-20); Aspartate Amino Transferase 26 U/L (5-31); Bilirubin Total 0.4 mg/dL (0.0-1.0); Blood Urea Nitrogen 12 mg/dL (9-16); Calcium 9.8 mg/dL (8.4-10.2); Carbon Dioxide 31 mmol/L (22-29); Chloride 104 mmol/L (96-108); Estimated Glomerular Filt Rate > 60; Glucose Random 108 mg/dL (60-115); Magnesium 1.7 mg/dL (1.6-2.6); Potassium 3.3 mmol/L (3.3-5.1); Sodium 143 mmol/L (135-145); Total Protein 7.3 g/dL (6.5-8.0)
[2025-03-18 14:30] LABS: Cortisol Random 6.6 ug/dL
[2025-03-22 10:30] LABS: Metanephrine, Free 30 pg/mL (<=57); Normetanephrines, Free 252 pg/mL (<=148); Total Metanephrine, Free 282 pg/mL (<=205)
[2025-03-24 12:43] LABS: Aldosterone/Renin Ratio 17.8 Ratio (0.9-28.9); Plasma Renin Activity 0.73 ng/mL/h (0.25-5.82)
== END 2025-03-18 12:10 | disposition home or self-care (01) ==
LOC: HO.LAB 12:09
PROVIDERS: PCP Internal Medicine; Visit Provider Internal Medicine Hypertension Specialist
DX: Z00.00 Encounter for general adult medical examination without abnormal findings (principal); I10 Essential (primary) hypertension; E87.6 Hypokalemia
CPT/HCPCS: 36415; 80053; 82088; 82533; 83735; 83835; 84244

== ENCOUNTER 2025-05-30 14:34 | Outpatient (AMB) | payer MEDICARE, MEDICAID, SELFPAY ==
--- OUTSIDE RECORDS SUMMARY | 2025-05-30 14:38 | XMS_ITS | Clinical Summary ---
Author Organization [address] [place] [address] [place] [id number] Phone Care Team Providers Care Boss Dyer Name Role Phone Lillian Velasco MD Primary [...] 01/30/2025 3:21 PM EDT Plan of Treatment Health Maintenance Due Date Last Done Comments Breast Cancer Screening 1955 Diabetes: Annual GFR (Glomerular Filtration Rate) 1955 Diabetes: Annual Foot Exam 02/13/1966 Diabetes: Annual Retina Eye Exam 02/13/1966 Pneumococcal Vaccine: 50+ Years (1 of 2 - PCV) 02/13/1975 Zoster Vaccines (1 of 2) 02/13/2006 RSV Immunization Adult Patients (1 - Risk 60-74 years 1-dose series) 2016 COVID-19 Vaccine ( - 2023-2 5 season) 2024 Depression Screening 10/09/2024 Cholesterol Screening (Lipid Panel) 11/26/2024 Colorectal Cancer Screening: Colonoscopy 11/26/2024 Diabetes: Annual Urine Albumin-Creatinine Ratio (uACR) 11/26/2024 Diabetes: Blood Sugar Contro l Test (HGBA1C) 11/26/2024 Falls Risk Assessment 11/26/2024 Medicare Annual Wellness Visit 11/26/2024 Osteoporosis Screening (Bone Density Screening) 11/26/2024 Social Influencers of Health Screening 11/26/2024 Hypertension/CHF/CAD Annual BMP Blood Test 01/30/2025 Influenza Vaccine (#1) 2025 DTaP,Tdap,and Td Vaccines (4 - Td [...] Insurance MEDICARE [place]ICA[place] - [place] Care Teams Boss Dyer Relationship Specialty Start Date End Date Lillian Velasco MD [address] [facility] , [address] [facility] PCP - General Internal Medicine 11/26/24
--- NOTE | 2025-05-30 14:40 | AM.OFFVISMDC ---
Intake Vital Signs 05/30/25 14:41 05/30/25 15:31 Height 5 ft 7 in Weight 268 lb 4 oz BMI 42.0 BP 150/98 H 180/120 H Blood Pressure Location Lt brachial Lt brachial Position Sitting Sitting Pulse 90 Pulse Source Pulse Oximeter Pulse Oximetry (%) 97 Oxygen Delivery Method Room Air Intake Visit Reasons: AWV/4 mnth f/u Stockroom Clerk Required: No Accompanied by: Self / Same As Patient Allergies amlodipine Allergy (Intermediate, Verified 05/30/25 15:10) drowsiness, swelling of feet and ankles lisinopril Allergy (Intermediate, Verified 05/30/25 15:10) cough hydralazine Allergy (Verified 05/30/25 15:10) Swelling metformin Adverse Reaction (Verified 05/30/25 15:10) Diarrhea Lisinopril-Hydrochlorothiazide Adverse Reaction (Intermediate, Uncoded 05/30/25 15:10) Leg swelling Metoprolol Tartrate Adverse Reaction (Intermediate, Uncoded 05/30/25 15:10) Leg swelling Medication List - Last Reconciled 05/30/25 by Aliza Clemens PA-C blood sugar diagnostic (Freestyle [employer] strips) USe 1 test strip once a day blood-glucose meter (Freestyle [employer] meter) As directed compr.stocking,knee,long,large As directed HPI AWV/4 mnth f/u HPI Details 70-year-old female with past medical history of diabetes mellitus, hypertension, dyslipidemia, and morbid obesity last seen 01/2025 coming in for annual exam. In review of the notes, patient was seen by nephrology 03/2025 blood work was ordered and started on spironalactone-HCTZ and follow up. Presenting for an annual wellness visit and management of chronic conditions. The patient has a history of hypertension, with recent blood pressure readings of 150/98 mmHg and 180/120 mmHg. The patient reports that her blood pressure is elevated during sleep, as shown by an overnight monitor. She has recently restarted her CPAP for this reason. The patient is not currently taking any antihypertensive medications due to concerns about medication side effects and potassium levels. The patient is due for a cholesterol check, which was last done in September. mammo: declined colonoscopy: Cologuard 12/2024 neg DEXA: declined vaccines: UTD on Td declining others PFSH Medical History Hypertension Wound of lower extremity Venous stasis ulcer Chronic ulcer of left ankle Diabetes Hypertension Abnormal Pap smear of cervix Diabetes mellitus Hypertension Renal calculi Diastasis recti Dyslipidemia associated with type 2 diabetes mellitus Abdominal mass Microalbuminuria Renal calculi Morbid obesity Surgical History Hx of prior ablation treatment Family History Father Seizures Mother Seizures Congenital heart disease in adult Hypotension Maternal Grandfather Leukemia Social History Household Members: Family Housing: House Do you presently have visiting nurse or other home services: No Alcohol intake: current Alcohol intake frequency: holidays/special occasions only Alcohol type: wine Patient Tobacco Use Status: Former Tobacco user Tobacco use type: Cigarette e-Cigarette/Vaping Use: Never Used Second Hand Smoke Exposure: No Substance Use Type: Marijuana service: No Current occupational status: employed Current occupational exposures/hazards: No Cognitive needs: No Hearing needs: No Vision needs: No Questionnaire Medicare Wellness Checkup [age] What gender do you identify with?: female During the past 4 weeks, how much have you been bothered by emotional problems such as feeling anxious, depressed, irritable, sad or downhearted, and blue?: not at all During the past 4 weeks, has your physical & emotional health limited your social activities with family, friends, neighbors, or groups?: not at all During the past 4 weeks, how much bodily pain have you generally had?: no pain During the past 4 weeks, was someone available to help you if you needed & wanted help?: yes, as much as I wanted During the past 4 weeks, what was the hardest physical activity you could do for at least 2 minutes?: very light Can you get to places out of walking distance without help? (For eg., can you travel alone on buses, taxis or drive your car?): Yes Can you go shopping for groceries or clothes without someone's help?: No Can you prepare your own meals?: Yes Can you do your housework without help?: No Because of any health problems, do you need the help of another person with your personal care needs such as eating, bathing, dressing or getting around the house?: Yes Can you handle your own money without help?: No During the past 4 weeks, how would you rate your health in general?: very good During the past 4 weeks how have things been going for you?: very well; could hardly better Are you having difficulties driving your car?: no Do you always fasten your seat belt when you are in a car?: yes, usually During past 4 weeks, have you been bothered by the following: never: Falling or dizzy when standing up, Sexual problems?, Trouble eating well?, Problems using the telephone? and Tiredness or fatigue? and seldom: Teeth or denture problems? Have you fallen 2 or more times in the past year?: Yes Are you afraid of falling?: No Are you a smoker?: no During the past 4 weeks, how many drinks of wine, beer, or other alcoholic beverages did you have?: 1 drink or less per week Do you exercise for about 20 minutes 3 or more times a week?: yes, most of the time Have you been given information to help with the following?: no: Hazards in your house that might hurt you? and no: Keeping track of your medications? How often do you have trouble taking medicines the way you have been told to take them?: I always take medicine as prescribed How confident are you that you can control & manage most of your health problems?: very confident What is your race?: Black or Activity of Daily Living Bathing - sponge bath, tub bath or shower: receives no assistance (gets in/out by self, if usual bathing means Dressing - getting clothes from closets & drawers, including inner/outer garments & fasteners.: gets clothes & gets completely dressed without help Toileting - going to the 'toilet room' for urine/bowel elimination & cleaning self/arranging clothes: goes to toilet room, cleans self, arranges clothes without help Transfer: moves in & out of bed and chair without help (may use support object) Continence: controls urination/bowel movements completely by self Feeding: feeds self without help Total Score: 0 Information obtained from: patient Using telephone: independent Traveling: independent Shopping: independent Preparing meals: independent Housework: independent Taking medicine: independent Managing money: independent PHQ-9 Over the last 2 weeks, how often have you been bothered by any of the following problems? 1. Little interest or pleasure in doing things: not at all 2. Feeling down, depressed, or hopeless: not at all 3. Trouble falling or staying asleep, or sleeping too much: not at all 4. Feeling tired or having little energy: not at all 5. Poor appetite or overeating: not at all 6. Feeling bad about yourself - or that you are a failure or have let yourself or your family down: not at all 7. Trouble concentrating on things, such as reading the newspaper or watching television: not at all 8. Moving or speaking so slowly that other people could have noticed. Or the opposite - being so fidgety or restless that you have been moving around a lot more than usual: not at all 9. Thoughts that you would be better off or of hurting yourself in some way: not at all Total score: 0 Depression Screening Interpretation: Negative Depression Screening Done: Yes 60677 - PHQ-9 Billing: Yes Source: Developed by Drs. Cesar Snow, Ela Wiley, Benjamín Chino and colleagues, with an educational rio from [employer]. Review of Systems Const Denies body aches, Denies fatigue, Denies fever(s), Denies frequent falls, Denies headache(s) and Denies weakness Eyes Reports no additional complaints and Denies change in vision ENT Denies dysphagia, Denies dizziness, Denies facial pain, Denies headache(s), Denies nasal congestion and Denies odynophagia Card Denies chest pain, Denies syncope, Denies irregular heart rhythm, Denies leg edema, Denies lightheadedness and Denies dyspnea Resp Denies cough and Denies dyspnea GI Denies constipation, Denies dysphagia, Denies dyspepsia, Denies diarrhea, Denies nausea, Denies odynophagia and Denies vomiting Denies urinary frequency, Denies dysuria, Denies urinary hesitancy and Denies urinary urgency Musc Denies back pain and Denies myalgias Skin/Breast Reports system reviewed and no additional complaints, except as documented Neuro Denies dizziness, Denies syncope, Denies frequent falls, Denies headache(s) and Denies weakness Psych Reports no additional complaints Endo Denies fatigue Physical Exam Vital Signs: Last Vital Signs Pulse 90 05/30/25 14:41 BP 180/120 H 05/30/25 15:31 Pulse Ox 97 05/30/25 14:41 Oxygen Delivery Method Room Air 05/30/25 14:41 BMI result Body Mass Index 42.0 Const General: cooperative, healthy appearing, comfortable and no acute distress Orientation/consciousness: patient oriented x3 HEENT Head: Yes normocephalic Ears: hearing grossly normal bilaterally, external ears normal, TM's normal bilaterally and EAC's normal General nose exam: Normal external nose present Face and sinus: Yes normal facial exam and Yes sinuses nontender Mouth: Normal oral and palatal mucosa present and tongue normal Throat: Yes posterior oropharynx normal Eyes General: appearance normal, both eyes and all related structures Conjunctivae: conjunctivae normal Pupils: Equal, round and reactive pupils present EOM: EOMs intact bilaterally and No Nystagmus present Neck Neck: Yes normal visual inspection, Yes full ROM and Yes no lymphadenopathy Chest Chest palpation & inspection: normal inspection of the chest Resp Effort & Inspection: normal respiratory effort Auscultation: clear to auscultation bilaterally, no crackles, no rales, no rhonchi, no wheezes and breath sounds present Cardio Rate: regular rate Rhythm: regular rhythm Peripheral pulses: radial pulses present and dorsalis pedis present GI Inspection: Yes normal to inspection and No Abdominal wall edema Palpation (GI): Soft to palpation, not firm and nontender Auscultation: normal bowel sounds Rectal Exam - Female: deferred General: Yes no CVA tenderness Back/Spine/Pelvis Back: no CVA tenderness Skin General skin exam: no rashes or lesions noted Neuro General: patient oriented x3 Cranial nerves: Yes Equal, round and reactive pupils present, Yes Midline tongue present, Yes Ability to bilaterally elevate shoulders present and No Nystagmus present Gait exam (Neuro): Normal gait present Extrem General: Yes normal to inspection, Yes full ROM, No no pedal edema and No edema Psych Speech and movement: Normal speech and movement present Affect: normal affect Insight: Good insight present (Psych) Judgement: Good judgement present (Psych) Assessment & Plan Assessment & Plan (1) Annual wellness visit: Code(s): Z00.00 - Encounter for general adult medical examination without abnormal findings Plan: Patient is up-to-date on all recommended routine screenings and vaccinations for her age. Healthy diet and regular exercise is encouraged. Ordered for updated blood work and plan to follow up in 6 weeks. [place]bler of care was reviewed with patient patient was provided with a written screening schedule. Patient has good cognition is able to make informed decisions about her own health and wellness. (2) Uncontrolled hypertension: Code(s): I10 - Essential (primary) hypertension Plan: Blood pressure is significantly elevated she has not been taking her medications. Plan to restart on the medication the desk interviewer recommended and advised following up with her Nephrology as well. Recommend continuing with nightly CPAP. (3) PAD (peripheral artery disease): Code(s): I73.9 - Peripheral vascular disease, unspecified Plan: No longer following with vascular surgery and her ulcerations have completely healed at this time. (4) Dyslipidemia associated with type 2 diabetes mellitus: Code(s): E11.69 - Type 2 diabetes mellitus with other specified complication; E78.5 - Hyperlipidemia, unspecified Plan: Avoid foods that are high in cholesterol such as red meat, fried foods, eggs and baked goods. Triglyceride goal of less than 150 and LDL goal of less than 100. Not on medical management at this time ordered for updated blood work. (5) DMII (diabetes mellitus, type 2): Code(s): E11.9 - Type 2 diabetes mellitus without complications Qualifiers: Diabetes mellitus complication status: without complication Diabetes mellitus radiation oncology therapist insulin use: without fdc use Qualified Code(s): E11.9 - Type 2 diabetes mellitus without complications Plan: Decrease the amount of carbohydrates such as pasta, bread, rice, and potatoes and limit the amount of sweets. Although fruits are generally healthy they should be eaten in moderation as they are still high in sugar. Hemoglobin A1c goal of less than 7%. A1c in the clinic 6.5% not currently on medical management. (6) Morbid obesity: Code(s): E66.01 - Morbid (severe) obesity due to excess calories Plan: Healthy diet and regular exercise is encouraged. She tells me she will lose 10 lb prior to next visit. (7) CVA (cerebral vascular accident): Comment: [facility] [place] 09/17/2024 CTA head and neck showed several scattered areas of stenosis in several vessels. MRI brain performed 09/17/2024 revealed a tiny acute infarct in the right coronar radiata Code(s): I63.9 - Cerebral infarction, unspecified Plan: Patient is currently on aspirin 81 mg daily. Recommend good control of blood pressure, cholesterol and blood sugars. She does currently have uncontrolled blood pressure and agrees to slowly reincorporate her medications at this time. (8) STEVE (obstructive sleep apnea): Code(s): G47.33 - Obstructive sleep apnea (adult) (pediatric) Plan: Uses CPAP faithfully at least 4 hours a night and benefits from this therapy. Plan The patient will undergo a cholesterol check, as it was last completed in September, to monitor her hyperlipidemia. Blood pressure management remains a priority, with the patient currently not on antihypertensive medications due to concerns about side effects and potassium levels. The patient is advised to consider osteoporosis screening as part of her preventative care measures. Follow-up is recommended in six weeks to reassess blood pressure and review cholesterol results. This note was constructed using voice recognition software. While every effort has been made to ensure accuracy and search lead, still areas may have been included sometimes these areas may affect the content or meeting of the given symptoms. Total time spent caring for the patient today was 30 minutes. This includes time spent before the visit reviewing the chart, time spent during the visit, and time spent after the visit and documentation. Patient was informed and verbally consented to the use of an ambient scribe for clinic note documentation during this visit. Orders: Orders Lipid Panel Today E78.00 - Pure hypercholesterolemia, unspecified Medications: Refilled spironolacton-hydrochlorothiaz 25-25 mg 1 tab PO DAILY 90 tabs 0RF Quality Reporting (2019) Depression/Bipolar (159/160/161/177) PHQ-9: Total score: 0 Coding Level of Care Code Medicare First (G0438) Diagnoses Annual wellness visit Z00.00 Uncontrolled hypertension I10 PAD (peripheral artery disease) I73.9 Dyslipidemia associated with type 2 diabetes mellitus E11.69; E78.5 Type 2 diabetes mellitus without complication, without long-term current use of insulin E11.9 Diabetes mellitus complication status: without complication Diabetes mellitus fdc insulin use: without radiation oncology therapist use Morbid obesity E66.01 CVA (cerebral vascular accident) I63.9 STEVE (obstructive sleep apnea) G47.33 Additional Codes PHQ-9 - 30270 - PHQ-9 Billing: Yes ([id number])
[2025-05-30 14:41] VITALS: BP 150/98; PULSE 90; O2SAT 97; BMI 42.0
[2025-05-30 15:31] VITALS: BP 180/120
== END 2025-05-30 15:47 | disposition home or self-care (01) ==
LOC: HO.HMCH 14:35
DX: Z00.00 Encounter for general adult medical examination without abnormal findings (principal); E11.69 Type 2 diabetes mellitus with other specified complication; E66.01 Morbid (severe) obesity due to excess calories; I63.9 Cerebral infarction, unspecified; Z68.41 Body mass index [BMI] 40.0-44.9, adult; I10 Essential (primary) hypertension; I73.9 Peripheral vascular disease, unspecified; E78.5 Hyperlipidemia, unspecified; G47.33 Obstructive sleep apnea (adult) (pediatric)

== ENCOUNTER → 2025-05-30 14:34 | Outpatient (BNVA) | payer MEDICARE, MEDICAID, SELFPAY | DX: Z00.00 Encounter for general adult medical examination without abnormal findings (principal); I10 Essential (primary) hypertension; I73.9 Peripheral vascular disease, unspecified; E11.69 Type 2 diabetes mellitus with other specified complication; E78.5 Hyperlipidemia, unspecified | CPT/HCPCS: 96127 ==

== ENCOUNTER 2025-08-26 13:09 | Outpatient (AMB) | payer MEDICARE, MEDICAID, SELFPAY ==
--- NOTE | 2025-08-26 13:11 | A.OFFVIS_ITS ---
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 complaining of 2 pimples on side of vulva and a skin tag Senior Manufacturing Test Engineer Required: No Information Interpreted: non-clinical & clinical Special Effects Specialist: Special Effects Specialist Present (Flaca Liu LPN) Accompanied by: Self / Same As Patient Allergies amlodipine Allergy (Intermediate, Verified 08/26/25 13:14) drowsiness, swelling of feet and ankles lisinopril Allergy (Intermediate, Verified 08/26/25 13:14) cough hydralazine Allergy (Verified 08/26/25 13:14) Swelling metformin Adverse Reaction (Verified 08/26/25 13:14) Diarrhea Lisinopril-Hydrochlorothiazide Adverse Reaction (Intermediate, Uncoded 08/26/25 13:14) Leg swelling Metoprolol Tartrate Adverse Reaction (Intermediate, Uncoded 08/26/25 13:14) Leg swelling Medication List - Last Reconciled 08/26/25 by Taylor Gamble CNM blood sugar diagnostic (Freestyle InsuLinx strips) USe 1 test strip once a day blood-glucose meter (Freestyle InsuLinx meter) As directed compr.stocking,knee,long,large As directed spironolacton-hydrochlorothiaz 25-25 mg 1 tab PO DAILY Post menopausal: Yes Do you need a note to return to daycare/school/sports/work: No HPI Comments Details: Pt presents today for ANNUAL exam She has the following concerns: pimple between the left labia majora and inner thigh, ongoing for several year, no change in size or shape no drainage and no pain She is not currently sexually active or in a relationship recently returned from [place] where here daughter was Exercise: daily walks and home strength training Nutrition/calcium: Contraception: post-menopausal and denies any abnormal vaginal bleeding Last Pap: 2021 , Results: Neg Last mammo: 2021, Results Birads 2 with asymmetry and stable right intra- mammary node Pt reorts she only gets a mammogram every 5 yrs, becasue she is diligent about checking her own breast and has not noted any changes . she declines to go any sooner despite recommendations [facility] Medical History Hypertension Wound of lower extremity Venous stasis ulcer Chronic ulcer of left ankle Diabetes Hypertension Abnormal Pap smear of cervix Diabetes mellitus Hypertension Renal calculi Diastasis recti Dyslipidemia associated with type 2 diabetes mellitus Abdominal mass Microalbuminuria Renal calculi Morbid obesity Surgical History Hx of prior ablation treatment Family History Father Seizures Mother Seizures Congenital heart disease in adult Hypotension Maternal Grandfather Leukemia Social History Household Members: Family Housing: House Do you presently have visiting nurse or other home services: No Alcohol intake: current Alcohol intake frequency: holidays/special occasions only Alcohol type: wine Patient Tobacco Use Status: Former Tobacco user Tobacco use type: Cigarette e-Cigarette/Vaping Use: Never Used Second Hand Smoke Exposure: No Substance Use Type: Marijuana service: No Current occupational status: employed Current occupational exposures/hazards: No Cognitive needs: No Hearing needs: No Vision needs: No Female Reproductive History Menstrual Age of Menarche: 13 control method: permanent sterilization Total pregnancies: 4 Number of Living Children: 4 Date of last pap smear: 07/15/22 History of abnormal pap smear: Yes (02/22 LORI) Date of Mammogram: 08/31/22 History of abnormal mammogram: No Review of Systems Const Reports no additional complaints Eyes Reports no additional complaints ENT Reports no additional complaints Card Reports no additional complaints Resp Reports no additional complaints GI Reports no additional complaints Reports as per [facility] Skin/Breast Reports system reviewed and no additional complaints, except as documented Physical Exam Vital Signs: Last Vital Signs BP 156/88 H 08/26/25 13:22 BMI result Body Mass Index 43.5 Const General: cooperative, healthy appearing and no acute distress Orientation/consciousness: patient oriented x3 HEENT Head: Yes normal to inspection and Yes normocephalic Ears: external ears normal General nose exam: Normal external nose present Neck Neck: Yes normal visual inspection Chest Breast/axilla inspection: normal inspection of the axillae and Other (No skin changes, peau d orange, or nipple discharge , asymmetrical breast) Breast/axilla palpation: normal palpation of the breasts, normal palpation of the axillae and no axillary lymphadenopathy Resp Effort & Inspection: normal respiratory effort and able to speak in complete sentences GI Inspection: No distended and Yes obesity Palpation (GI): Soft to palpation, nontender, Hernia present and no masses Percussion: Yes normal to percussion External Female Exam: normal external appearance and normal appearance of the urethra Speculum Exam - Vagina: normal appearance of the vagina and normal vaginal discharge Speculum Exam - Cervix: normal appearance of the cervix and normal palpation (neg CMT) Bimanual exam- vagina & uterus: normal bimanual exam, normal palpation (neg CMT), uterine mobility normal and non-tender Bimanual Exam- Adnexa, other: no masses and No adnexal tenderness Female genitals images: 2 1. small mobile fatty sebaceous, lipoma under the skin 2. skin tag Skin Other: bilateral low extremity healed ulcers Neuro General: patient oriented x3 and moves all extremities Extrem General: Yes full ROM Psych Speech and movement: Normal speech and movement present Affect: normal affect Attitude: cooperative Thought process: Normal thought process present Assessment & Plan Assessment & Plan (1) Well woman exam with routine gynecological exam: Code(s): Z01.419 - Encounter for gynecological examination (general) (routine) without abnormal findings (2) Post-menopause: Code(s): Z78.0 - Asymptomatic menopausal state (3) Screening breast examination: Code(s): Z12.39 - Encounter for other screening for malignant neoplasm of breast Plan During the visit, the following areas of concern were addressed: Regular exercise Healthy lifestyle Health Maintenance and Screening -Reviewed ASCCP guidelines for Paps and yearly (bi-yearly ) pelvic exam. -Reviewed and encouraged diet and exercise for cardiovascular and bone health -Reviewed breast self-awareness. Importance of yearly mammogram after age 40 (earlier if first-degree relative with breast cancer at a younger age ) Discuss use of 3 times per week weight-bearing exercise, vitamin D3 and servings of dietary calcium daily for bone health. -continue to follow with PCP for general medical care, immunizations. Screening strategies for colon cancer after age 50. Family and personal history of cancer reviewed. Genetic screening optional - not indicated The patient has BMI: 43.5 The patient is obese. Approaches towards weight loss are discussed including burning more calories than 1 takes in by frequent, small meals, portion control, avoiding eating before bedtime, regular exercise with an emphasis on duration rather than intensity, strength training exercise, referral to fraud investigator or to weight loss management center upon patient request. states she had considered bariatric surgery in the past. RTO one year or sooner hieu Gamble CNM Note about provider documentation : If you or the patient named in this chart and are reviewing your medical notes, please note that medical documentation is often written with abbreviations and medical terminology, and directed for other providers who may be involved in your care as well. Documentation is critical to record what has happened, what tests were ordered, and so they are interpreted with the resulting diagnoses. These nodes have been made available for patient review but not specifically written for the patient. Important health information is always given to my patients in clinical instructions. Please review your after visit summary and our contact our clinical staff if you have any questions. Orders: Orders 2 XR DEXA axial skeleton Today Z78.0 - Asymptomatic menopausal state Coding Level of Care Code Est Pt Prev Care >65y(08705) Diagnoses Well woman exam with routine gynecological exam Z01.419 Post-menopause Z78.0 Screening breast examination Z12.39
[2025-08-26 13:22] VITALS: BP 156/88; BMI 43.5
--- OUTSIDE RECORDS SUMMARY | 2025-08-27 05:07 | XMS_ITS | Clinical Summary ---
Author Organization [address] [place] [address] [place] [id number] Phone Care Team Providers Care Needle Setter Name Role Phone Lillian Velasco MD Primary Care Provider [phone] Social History Tobacco Use Types Packs/Day Years [...] Last Done Comments Breast Cancer Screening 1956 Colorectal Cancer Screening: Colonoscopy 1955 Diabetes: Annual GFR (Glomerular Filtration Rate) 1956 Diabetes: Annual Foot Exam 02/13/1966 Diabetes: Annual Retina Eye Exam 02/13/1966 Pneumococcal Vaccine: 50+ Years (1 of 2 - PCV) 02/13/1975 RSV Immunization Adult Patients (1 - Risk 50-74 years 1-dose series) 02/13/2006 Zoster Vaccines (1 of 2) 02/13/2006 Depression Screening 10/09/2024 Cholesterol Screening (Lipid Panel) 11/26/2024 Diabetes: Annual Urine Albumin-Creatinine Ratio (uACR) 11/26/2024 Diabetes: Blood Sugar Contro l Test (HGBA1C) 11/26/2024 Falls Risk Assessment 11/26/2024 Medicare Annual Wellness Visit 11/26/2024 Osteoporosis Screening (Bone Density Screening) 11/26/2024 Social Influencers of Health Screening 11/26/2024 Hypertension/CHF/CAD Annual BMP Blood Test 01/30/2025 COVID-19 Vaccine (1 - 2024-2 6 season) 2025 Influenza Vaccine (#1) 2025 DTaP,Tdap,and Td Vaccines [...] Insurance MEDICARE [place]ICA[place] - [place] Care Teams Needle Setter Relationship Specialty Start Date End Date Lillian Velasco MD [address] [facility] , [address] [facility] D[facility]A: [facility] [place] PCP - General Internal Medicine 11/26/24
== END 2025-08-26 14:13 | disposition home or self-care (01) ==
LOC: HO.HWSM 13:09
PROVIDERS: Visit Provider Advanced Practice Midwife
DX: Z01.419 Encounter for gynecological examination (general) (routine) without abnormal findings (principal); Z78.0 Asymptomatic menopausal state; Z12.39 Encounter for other screening for malignant neoplasm of breast
CPT/HCPCS: G0101

== ENCOUNTER → 2025-08-26 13:09 | Outpatient (BNVA) | payer MEDICARE, MEDICAID, SELFPAY | PROVIDERS: Visit Provider Advanced Practice Midwife | DX: Z01.419 Encounter for gynecological examination (general) (routine) without abnormal findings (principal); D17.39 Benign lipomatous neoplasm of skin and subcutaneous tissue of other sites; Z78.0 Asymptomatic menopausal state | CPT/HCPCS: G0101 ==

== ENCOUNTER → 2025-09-02 13:00 | Outpatient (BNV) | payer MEDICARE, MEDICAID, SELFPAY | PROVIDERS: PCP Internal Medicine; Visit Provider Radiology Diagnostic Radiology | DX: E28.39 Other primary ovarian failure (principal) | CPT/HCPCS: 77080 ==

== ENCOUNTER 2025-09-02 13:01 | Outpatient (REF) | payer MEDICARE, MEDICAID, SELFPAY ==
--- NOTE | ~2025-09-02 | MM_ITS ---
EXAMINATION: DXA BONE DENSITY AXIAL HISTORY: Z78.0 - Asymptomatic menopausal state TECHNIQUE: Forerun Dual energy absorptiometry (DEXA) of the lumbar spine, total left hip, and femoral neck was performed. COMPARISON: There are no prior studies for comparison. FINDINGS: The bone mineral density of the lumbar spine is 1.393 g/cm2, corresponding to a T-score of -1.6, and a Z-score of 1.4. This is indicative of normal bone mineral density. The bone mineral density of the left total hip is 0.977 g/cm2, corresponding to a T-score of -0.2, and a Z-score of -0.6. This is indicative of normal bone mineral density. The bone mineral density of the left femoral neck is 0.968 g/cm2, corresponding to a T-score of -0.5, and a Z-score of -0.5. This is indicative of normal bone mineral density. FRACTURE RISK: The FRAX index suggests a risk of major osteoporotic fracture of 3.0%, and of hip fracture 0.2%. MM/XR DEXA axial skeleton IMPRESSION: Based on bone mineral density, and according to World Health Organization (WHO) criteria, the diagnosis is consistent with normal bone mineral density. Statistically, 68% of repeat scans fall within 1 SD (+/- 0.010 g/cm2 for AP spine L1-L4) and 1 SD (+/- 0.012 g/cm2 for femur total) FRAX is a trademark of the [employer] [employer] Metabolic Bone Disease, a World Health Organization (WHO) Collaborating Center. Electronically signed by: Cesar Sherwood MD 09/02/2025 01:39 PM [facility]
== END 2025-09-02 13:02 | disposition home or self-care (01) ==
LOC: HO.MAMMO 13:01
PROVIDERS: PCP Internal Medicine; Visit Provider Advanced Practice Midwife
DX: Z78.0 Asymptomatic menopausal state (principal)
CPT/HCPCS: 77080